=== PATIENT | male | born 1955 | race Caucasian/White ===

== ENCOUNTER → 2018-04-03 12:24 | Outpatient (CLI) | payer OTHER, MEDICAID, SELFPAY ==
[2018-04-03 15:29] LABS: Amylase 69 U/L (30-110); Lipase 59 U/L (23-300)
[2018-04-03 15:40] LABS: Free T4, Direct Thyroxine 1.66 ng/dL (0.78-2.19)
[2018-04-03 15:54] LABS: Thyroid Stimulating Hormone 1.48 uIU/mL (0.47-4.68)
== END ==
PROVIDERS: PCP Physician Assistant; Visit Provider Physician Assistant
DX: Z80.0 Family history of malignant neoplasm of digestive organs (principal); R10.9 Unspecified abdominal pain; E03.9 Hypothyroidism, unspecified
CPT/HCPCS: 36415; 82150; 83690; 84439; 84443

== ENCOUNTER → 2018-09-01 12:20 | Outpatient (CLI) | payer OTHER, MEDICAID, SELFPAY ==
[2018-09-01 13:00] LABS: Add Manual Diff / Slide Review NO; Basophils Percent Auto 1.2 % (0-2); Eosinophils Percent Auto 2.3 % (2-4); Hematocrit 48.7 % (41-53); Hemoglobin 16.9 g/dL (13.5-17.5); Lymphocytes Percent Auto 33.2 % (25-40); Mean Corpuscular HGB Conc 34.6 % (30-36); Mean Corpuscular Volume 95.4 fL (80-100); Monocytes Percent Auto 13.4 % (3-14); Neutrophils Absolute Auto 3300 /uL (1500-7000); Neutrophils Percent Auto 49.9 % (50-75); Platelet Count 209 X10^3/uL (150-400); Red Blood Cell Count 5.11 X10^6/uL (4.5-5.9); Red Cell Distribution Width 12.3 % (11.6-14.8); White Blood Cell Count 6.6 X10^3/uL (4.5-11.0)
[2018-09-01 13:07] LABS: Alanine Aminotransferase 44 IU/L (21-72); Albumin 4.5 g/dL (3.5-5.0); Albumin Globulin Ratio 1.3 (1.0-2.8); Alkaline Phosphatase 63 U/L (38-126); Aspartate Aminotransferase 46 IU/L (17-59); Blood Urea Nitrogen 7 mg/dL (9-20); Calcium 9.2 mg/dL (8.4-10.2); Carbon Dioxide 29 mmol/L (22-32); Chloride 96 mmol/L (98-107); Cholesterol 143 mg/dL (140-199); Estimated Glomerular Filt Rate > 60.0 mL/min (>60); Globulin 3.6 g/dL (1.7-4.1); Glucose 93 mg/dL (80-110); HDL Cholesterol 51 mg/dL (40-60); HEMOLYSIS < 15 (0-50); LDL Cholesterol Calculated 68 mg/dL (<100); Sodium 136 mmol/L (137-145); Total Protein 8.1 g/dL (6.3-8.2); Triglycerides 122 mg/dL (35-150)
[2018-09-04 23:35] LABS: Cancer (Carbohydrate) Ag 19-9 < 3 U/mL (< 34)
== END ==
PROVIDERS: PCP Physician Assistant; Visit Provider Physician Assistant
DX: E03.9 Hypothyroidism, unspecified (principal); F17.200 Nicotine dependence, unspecified, uncomplicated; R14.0 Abdominal distension (gaseous); Z13.220 Encounter for screening for lipoid disorders; Z13.6 Encounter for screening for cardiovascular disorders; Z80.0 Family history of malignant neoplasm of digestive organs
CPT/HCPCS: 36415; 80053; 80061; 84443; 85025; 86301

== ENCOUNTER 2018-11-14 11:22 | Day surgery (SDC) | payer OTHER, MEDICAID, SELFPAY ==
[2018-11-14] VITALS (8 sets, daily range): BP systolic 153–185; BP diastolic 84–100; PULSE 62–72; RESP 10–24; TEMP 36.3–36.4; O2SAT 93–98; BMI 27.1
--- NOTE | 2018-11-14 | PATH_ITS ---
[facility] Accession Number: [id number] . 01 Material submitted: . PART A: DUODENUM BIOPSY PART B: ANTRUM BIOPSY PART C: GE JUNCTION BIOPSY . 01 Clinical history: . EGD . 02 Diagnosis: A. Duodenum, Biopsy: Duodenal mucosa with no diagnostic abnormality. Negative for active inflammation, features of sprue, dysplasia, and malignancy. . B. Stomach, Antrum, Biopsy: Antral mucosa with no diagnostic abnormality. No evidence of Helicobacter on H/E stain. Negative for intestinal metaplasia. Negative for dysplasia and malignancy. . C. Gastroesophageal Junction, Biopsy: Superficial fragments of columnar epithelium with no diagnostic abnormality. Negative for intestinal metaplasia. Negative for dysplasia and malignancy. [facility]/11/15/2018 . 02 Electronically signed: . Kusum Weaver MD, Pathologist NPI- [id number] . 01 Gross description: . Received three formalin-filled containers each labeled with the patient's name. . A. In a container labeled duodenum, the specimen consists of a 0.3 cm portion of tissue. Entirely submitted in cassette A. B. In a container labeled antrum, the specimen consists of a 0.2 cm portion of tissue. Entirely submitted in cassette B. C. In a container labeled GE junction are two extremely tiny less than 0.1 cm portions of tissue. Entirely submitted in cassette C. ([facility] [place] [facility]:[id number]) /[facility] . 02 Pathologist provided ICD-10: R10.9 . 02 CPT . 714036, 537400, 884309 Performed at: 01 [facility] [address] [place] [address], [place], [place] [id number] MD Anmol Alejo MD Phone: [phone] Performed at: 02 [facility] [place] [address] [place] [id number] MD Kusum Weaver MD Phone: [phone]
[2018-11-14] MEDS: SODIUM CHLORIDE 0.9% 1,000 ML 200 ML IV (12:45)
--- NOTE | 2018-11-14 13:24 | PM.PREOP ---
Pre-operative Note Interval Note History & Physical reviewed/Exam performed by Physician: Yes Changes to H&P: No ASA Class (for procedural sedation): II
[2018-11-14] MEDS: LIDOCAINE 4% SOLN 50 ML 20 ML TOP (13:31)
[2018-11-14] MEDS: TETRACAINE/BENZOCAINE/BUTAMBEN (CETACAINE) BOTTLE 1 SPRAY TOP (13:32)
[2018-11-14] MEDS: fentaNYL 250 MCG/5 ML INJ IV (13:32)
[2018-11-14] MEDS: MIDAZOLAM 5 MG/5 ML VIAL IV (13:33)
--- NOTE | 2018-11-14 13:41 | PM.OP.1 ---
Operative Date/Time/Diagnoses Date of procedure: 11/14/18 Time of procedure: 13:41 Pre-op diagnosis: Esophageal thickening Post-op diagnosis: same Procedure & Clinicians Procedure: Esophagogastroduodenoscopy with biopsies Same procedure as scheduled: Yes Indications: abnormal CT with esophageal thickening Surgeon: Luz Duarte Click Yes if Unassisted: No Anesthesia Type: Sedation ( Versed 5 mg; fentanyl 150 mcg) Operative Notes Findings: 1. normal-appearing duodenum 2. antral gastritis 3. active bile reflux through the pylorus is noted 4. severe distal esophagitis with ulceration of the anterior esophageal wall. 5. Tissue on the posterior esophageal wall consistent with Macdonald's changes Closure Type: not applicable Specimen(s): other ( 1. Duodenum, 2. Antrum, 3. GE junction all cold forceps mucosal biopsies) Estimated Blood Loss (mL): 2 Procedure in detail: After obtaining informed consent, the patient was brought to the GI suite and placed in the left lateral decubitus position on the examination table. After placement of appropriate monitors, the patient was given incremental doses of Versed and Fentanyl until an appropriate level of sedation was achieved. A time out was held per SCOAP protocol. A bite block was gently placed between the patient's teeth. The endoscope was lubricated and then passed into the patient's posterior oropharynx. The esophagus was cannulated under direct vision and the scope was passed to the second portion of the duodenum without difficulty. The scope was then withdrawn with careful examination of all areas of the upper GI tract and mucosa. In the stomach, the instrument was retroflexed and the GE junction examined. The scope was straightened and the procedure continued with examination of the remainder of the upper GI tract. Findings are noted above. Air was aspirated from the stomach and the endoscope gently removed from the esophagus. The patient was allowed to awaken from sedation without difficulty and taken to the post-anesthesia care unit in good condition. total sedation time was 10 min Complications: none Condition: stable Disposition: PACU Plan for aftercare: 1. Discharge to home 2. start Protonix 40 mg b.i.d. and sucralfate 1000 mg b.i.d. 3. We will contact you with pathology results and additional recommendations
== END 2018-11-14 15:00 ==
LOC: ENDO 11:25
PROVIDERS: PCP Physician Assistant; Visit Provider Surgery
PROC: 0DJ08ZZ Inspection of Upper Intestinal Tract, Via Natural or Artificial Opening Endoscopic (ICD-10-PCS; CPT 43235; principal; 2018-11-14 12:30)
DX: K29.60 Other gastritis without bleeding (principal); K22.10 Ulcer of esophagus without bleeding; E03.9 Hypothyroidism, unspecified; Z87.891 Personal history of nicotine dependence
CPT/HCPCS: 43239; 99152; J2250; J3010

== ENCOUNTER → 2019-07-17 12:06 | Outpatient (CLI) | payer MEDICARE, OTHER, MEDICAID, SELFPAY ==
--- NOTE | 2019-07-17 12:12 | DI.RAD.S_ITS ---
PROCEDURE: XR CHEST 2V INDICATIONS: dyspnea TECHNIQUE: 2 views of the chest were acquired. COMPARISON: [facility], , CHEST 2 VIEW, 07/29/2017, 7:54. FINDINGS: Surgical changes and devices: None. Lungs and pleura: Lungs are abnormal with interstitial prominence and slight bilateral subpulmonic pleural effusions blunting each costophrenic sulcus laterally. Additionally the diaphragms are flattened, COPD is suspected. No pleural effusions or pneumothorax. Mediastinum: Mediastinal contours are normal. Heart size is at the upper limits of normal. Bones and chest wall: No suspicious bony abnormalities. Soft tissues appear unremarkable. IMPRESSION: COPD, slight pleural effusions present in each lateral costophrenic sulcus. Heart size at the upper limits of normal considering large lung volumes. Dictated by: Chepe Ornelas M.D. on 07/17/2019 at 13:11 Approved by: Chepe Ornelas M.D. on 07/17/2019 at 13:12
== END ==
PROVIDERS: Family Provider Physician Assistant; PCP Physician Assistant; Visit Provider Internal Medicine
DX: R06.00 Dyspnea, unspecified (principal); J44.9 Chronic obstructive pulmonary disease, unspecified; J90 Pleural effusion, not elsewhere classified
CPT/HCPCS: 71046

== ENCOUNTER → 2019-07-31 11:33 | Outpatient (CLI) | payer MEDICARE, SELFPAY ==
[2019-07-31 12:00] LABS: Add Manual Diff / Slide Review NO; Basophils Absolute Auto 100 /uL (0-100); Basophils Percent Auto 1.2 % (0-2); Eosinophils Absolute Auto 100 /uL (0-450); Eosinophils Percent Auto 2.1 % (2-4); Hematocrit 43.5 % (41-53); Hemoglobin 14.9 g/dL (13.5-17.5); Lymphocytes Absolute Auto 1800 /uL (1100-4500); Lymphocytes Percent Auto 30.3 % (25-40); Mean Corpuscular HGB Conc 34.3 % (30-36); Mean Corpuscular Hemoglobin 33.1 PG (26-34); Mean Corpuscular Volume 96.5 fL (80-100); Monocytes Absolute Auto 600 /uL (0-900); Monocytes Percent Auto 10.2 % (3-14); Neutrophils Absolute Auto 3300 /uL (1500-7000); Neutrophils Percent Auto 56.2 % (50-75); Platelet Count 163 X10^3/uL (150-400); Red Blood Cell Count 4.51 X10^6/uL (4.5-5.9); Red Cell Distribution Width 13.5 % (11.6-14.8); White Blood Cell Count 5.8 X10^3/uL (4.5-11.0)
[2019-07-31 13:18] LABS: Alanine Aminotransferase 20 IU/L (<50); Albumin 4.2 g/dL (3.5-5.0); Albumin Globulin Ratio 1.4 (1.0-2.8); Alkaline Phosphatase 78 U/L (38-126); Aspartate Aminotransferase 47 IU/L (17-59); BUN Creatinine Ratio 8.3 (6-22); Bilirubin Total 1.5 mg/dL (0.2-1.3); Blood Urea Nitrogen 5 mg/dL (9-20); Carbon Dioxide 24 mmol/L (22-32); Chloride 99 mmol/L (98-107); Estimated Glomerular Filt Rate > 60.0 mL/min (>60); Globulin 3.1 g/dL (1.7-4.1); Glucose 84 mg/dL (80-110); HEMOLYSIS < 15 (0-50); Potassium 4.4 mmol/L (3.4-5.1); Sodium 134 mmol/L (137-145); Total Protein 7.3 g/dL (6.3-8.2)
[2019-07-31 13:46] LABS: Thyroid Stimulating Hormone 2.24 uIU/mL (0.47-4.68)
[2019-07-31 17:22] LABS: Prostate Specific Antigen 0.489 ng/mL (0.10-4.00)
== END ==
PROVIDERS: PCP Physician Assistant; Visit Provider Physician Assistant
DX: R63.4 Abnormal weight loss (principal)
CPT/HCPCS: 36415; 80053; 84153; 84443; 85025; G0103

== ENCOUNTER → 2019-08-01 10:51 | Outpatient (CLI) | payer MEDICARE, MEDICAID, SELFPAY ==
--- NOTE | 2019-08-01 10:54 | DI.CT.S_ITS ---
PROCEDURE: CT CHEST WO CON INDICATIONS: Dyspnea on exertion; Smoker; abnormal weight loss TECHNIQUE: Noncontrast 5 mm thick sections acquired from the pulmonary apices to the posterior costophrenic angles. 1 mm lung window, 5 mm thick coronal and sagittal and 7 mm axial MIP reformats were then acquired. For radiation dose reduction, the following was used: automated exposure control, adjustment of mA and/or kV according to patient size. COMPARISON: None. FINDINGS: Image quality: Excellent. Lungs and pleura: There are are small bilateral low density pleural effusions, slightly greater on the right than on the left. 5 and 6 mm nodular radiopacities are present within the posterior aspect of the right lower lobe (series 3, images 185 and 175). Mild interlobular septal thickening is present in the bilateral lung bases. Atelectasis is also present at the dependent lung bases. Mediastinum: Heart size is normal. No pericardial effusion. No mediastinal adenopathy by size criteria. Thoracic aorta and central pulmonary arteries are normal in size. Trace atheromatous calcifications are present within the thoracic aortic arch. Esophagus is normal in caliber. No hiatal hernia. Bones and chest wall: No suspicious bony lesions. No vertebral body compression fractures. No axillary or supraclavicular adenopathy by size criteria. Thyroid gland is unremarkable. Abdomen: Innumerable punctate gallstones are layered within the gallbladder fundus as well as within the cystic duct. Visualized upper abdominal solid organs and bowel loops appear normal in the absence of contrast. IMPRESSION: 1. Bilateral low density pleural effusions. 2. 5 and 6 mm right lower lobe pulmonary nodules. Please see followup guidelines below. A high risk patient, 6 month followup recommended. 3. Cholelithiasis and punctate stones within the cystic duct. This is only partially characterized on this limited view of the abdomen. Fleischner Society criteria for SOLID lung nodule followup. Nodule size (mm)Low-risk patientHigh-risk patient?4No follow-up neededFollow-up at 12 mo; if no change, no further follow-up>[id number] CT at 12 mo; if no change, no further follow-up needed.Initial follow-up CT at 6-12 mo, then 18-24 mo if no change. >6-8Initial follow-up CT at 6-12 mo, then 18-24 mo if no change. Initial follow-up CT at 3-6 mo, then 9-12 mo and 24 mo if no change. >8Follow-up CT at 3, 9, 24 mo. Or PET and/or biopsy.Same as for low-risk pts. Fleischner Society criteria for SUB-SOLID lung nodule followup. Solitary pure ground-glass nodules5 mm or lessNo followup needed. >5 mm3 mo follow-up CT to confirm persistence. Then annual CT for 3 years. Part-solid nodules3 mo follow-up CT to confirm persistence. If persistent with solid component <5 mm, annual CT for at least 3 years. If solid component is 5 mm or more, biopsy or surgical resection. Consider PET-CT for lesions > 10 mm. Multiple sub-solid nodulesPure ground glass nodules [address] at 2 and 4 years. Pure ground glass nodules >5 mm without dominant lesion. [address] to confirm persistence, then annual followup CT for at least 3 years. Dominant nodule(s) with part-solid or solid component. [address] to confirm persistence. If persistent, consider biopsy or surgical resection, prabha if lesions have >5 mm solid component. Dictated by: Bee Valladares M.D. on 08/01/2019 at 15:22 Approved by: Bee Valladares M.D. on 08/01/2019 at 15:27
== END ==
PROVIDERS: PCP Physician Assistant; Visit Provider Physician Assistant
DX: R05 Cough (principal); R06.09 Other forms of dyspnea; R91.8 Other nonspecific abnormal finding of lung field; J90 Pleural effusion, not elsewhere classified; K80.20 Calculus of gallbladder without cholecystitis without obstruction; R63.4 Abnormal weight loss; F17.200 Nicotine dependence, unspecified, uncomplicated
CPT/HCPCS: 71250

== ENCOUNTER 2020-02-17 16:06 | Inpatient (IN) | payer MEDICARE, MEDICAID, SELFPAY ==
[2020-02-17] VITALS (12 sets, daily range): BP systolic 113–167; BP diastolic 90–113; PULSE 65–132; RESP 18–32; TEMP 36.1–36.9; O2SAT 96–98; BMI 22.9
--- NOTE | 2020-02-17 | DI.CT.S_ITS ---
PROCEDURE: CT ABDOMEN W CON INDICATIONS: elevated LFTs, nausea vomiting TECHNIQUE: After the administration of intravenous contrast, 5 mm thick sections acquired from the diaphragm to the iliac crests. 5 mm coronal and sagittal reformats were performed. For radiation dose reduction, the following was used: automated exposure control, adjustment of mA and/or kV according to patient size. COMPARISON: [facility], CT, CT CHEST WO [facility], 08/01/2019, 10:58. FINDINGS: Image quality: Excellent. Lung bases: Trace bilateral pleural effusions. Lung bases are clear. Heart size is normal. Small hiatal hernia. Solid organs: Liver demonstrates a nodular contour. Liver is normal in size and enhancement. Gallbladder contains gallstones. Biliary system is non dilated. Pancreas enhances normally. Spleen is normal in size and enhancement. No adrenal nodules. Kidneys demonstrate normal size and enhancement, without hydronephrosis. Peritoneum and bowel: A few colonic diverticula are seen in the area of the hepatic flexure. No CT findings to suggest acute diverticulitis. Bowel loops demonstrate normal wall thickness and caliber. No free fluid or air. Nodes and vessels: No retroperitoneal or mesenteric adenopathy by size criteria. Aorta and inferior vena cava are normal in size. Miscellaneous: No ventral hernias. IMPRESSION: 1. Liver demonstrates subtle nodular contour suggesting cirrhosis. Recommend clinical correlation. 2. Cholelithiasis. 3. Trace pleural effusions bilaterally. 4. Diverticulosis without diverticulitis. Dictated by: Frances Ha M.D. on 02/17/2020 at 21:03 Approved by: Frances Ha M.D. on 02/17/2020 at 21:08
--- NOTE | 2020-02-17 16:22 | DI.RAD.S_ITS ---
PROCEDURE: XR CHEST 1V INDICATIONS: chest pain TECHNIQUE: One view of the chest was acquired. COMPARISON: [facility], CT, CT CHEST WO CON, 08/01/2019, 10:58. [facility], CR, XR CHEST 2V, 07/17/2019, 12:11. [facility], RG, XR CXR 2V, 03/15/2005, 12:01. FINDINGS: Surgical changes and devices: None. Lungs and pleura: Lungs are clear. No pleural effusions or pneumothorax. Mediastinum: Mediastinal contours appear normal. Heart size is normal. Bones and chest wall: No suspicious bony lesions. Overlying soft tissues appear unremarkable. IMPRESSION: No acute cardiopulmonary disease. Dictated by: Frances Ha M.D. on 02/17/2020 at 17:14 Approved by: Frances Ha M.D. on 02/17/2020 at 17:15
[2020-02-17 16:32] LABS: Add Manual Diff / Slide Review NO; Basophils Absolute Auto 100 /uL (0-100); Basophils Percent Auto 2.8 % (0-2); Eosinophils Absolute Auto 0 /uL (0-450); Eosinophils Percent Auto 1.3 % (2-4); Hematocrit 43.8 % (41-53); Hemoglobin 15.4 g/dL (13.5-17.5); Lymphocytes Absolute Auto 1100 /uL (1100-4500); Mean Corpuscular HGB Conc 35.2 % (30-36); Mean Corpuscular Hemoglobin 35.7 PG (26-34); Mean Corpuscular Volume 101.4 fL (80-100); Monocytes Absolute Auto 500 /uL (0-900); Neutrophils Absolute Auto 1600 /uL (1500-7000); Neutrophils Percent Auto 48.9 % (50-75); Platelet Count 82 X10^3/uL (150-400); Red Blood Cell Count 4.32 X10^6/uL (4.5-5.9); Red Cell Distribution Width 13.7 % (11.6-14.8); White Blood Cell Count 3.3 X10^3/uL (4.5-11.0)
[2020-02-17 16:37] LABS: Prothrombin Time 11.7 SECONDS (10.1-12.7)
[2020-02-17 16:40] LABS: PTT Partial Thromboplastin Tim 31 SECONDS (26.4-36.2)
[2020-02-17 16:41] LABS: Alanine Aminotransferase 58 IU/L (<50); Albumin 3.8 g/dL (3.5-5.0); Albumin Globulin Ratio 1.2 (1.0-2.8); Alkaline Phosphatase 99 U/L (38-126); Aspartate Aminotransferase 185 IU/L (17-59); BUN Creatinine Ratio 7.8 (6-22); Bilirubin Total 2.6 mg/dL (0.2-1.3); Blood Urea Nitrogen 5 mg/dL (9-20); Calcium 9.1 mg/dL (8.4-10.2); Carbon Dioxide 26 mmol/L (22-32); Chloride 96 mmol/L (98-107); Creatine Kinase 59 U/L (55-170); Estimated Glomerular Filt Rate > 60.0 mL/min (>60); Globulin 3.3 g/dL (1.7-4.1); Glucose 109 mg/dL (80-110); HEMOLYSIS < 15 (0-50); Lipase 165 U/L (23-300); Potassium 4.3 mmol/L (3.4-5.1); Sodium 130 mmol/L (137-145); Total Protein 7.1 g/dL (6.3-8.2)
[2020-02-17 16:53] LABS: Troponin I 0.013 ng/mL (0.01-0.034)
[2020-02-17] MEDS: SODIUM CHLORIDE 0.9% 1,000 ML 150 ML IV (17:10)
--- NOTE | 2020-02-17 17:20 | DI.US.S_ITS ---
PROCEDURE: US ABDOMEN LIMITED INDICATIONS: INCREASED LFTS; N/V TECHNIQUE: Real-time focused scanning was performed of the abdomen, with image documentation. COMPARISON: [facility], US, ABDOMEN COMPLETE, 07/29/2017, 8:38. [facility], CT, CT CHEST WO CON, 08/01/2019, 10:58. FINDINGS: There are gallstones. A 5 mm non-mobile stone seen in the gallbladder neck. No gallbladder wall thickening or pericholecystic fluid. The sonographic Rosas's sign was positive. Liver demonstrates increased echotexture IMPRESSION: 1. Cholelithiasis. There is a 5 mm non-mobile stone in the gallbladder neck. The patient has positive sonographic Rosas sign. No bladder wall thickening or pericholecystic fluid collection. Recommend clinical correlation for early acute cholecystitis. 2. Diffusely increased hepatic echotexture. This finding is most likely secondary to hepatic fatty infiltration although other hepatocellular disease may have a similar appearance. Recommend clinical correlation. Dictated by: Frances Ha M.D. on 02/17/2020 at 18:24 Approved by: Frances Ha M.D. on 02/17/2020 at 18:27
[2020-02-17] MEDS: MAGNESIUM SULFATE 2 GM, FOLIC ACID 1 MG, THIAMINE 100 MG, MULTIVITAMIN 10 ML in SODIUM ... IV (17:35)
--- NOTE | 2020-02-17 17:36 | ED_ITS ---
HPI - Weakness <RYAN Wilkinson - Last Filed: 02/17/20 21:32> General Chief complaint: Weakness Stated complaint: weakness,dizziness Time Seen by Provider: 02/17/20 16:39 Source: patient Mode of arrival: Family Vehicle Limitations: no limitations History of Present Illness HPI Narrative: This is a 64-year-old male, smoker, who has history of hypothyroidism and a long history of ETOH use presents to ED with generalized weakness for last 3 weeks and dizziness. Patient reports he needs help getting around and is not able to take care of himself. He lives alone at [facility] and has meals on wheels delivered to him once a day last 6 weeks. However with persistent nausea and vomiting patient has difficulty keeping foods down and digestion difficulty. Reports vomits about 2 times a week. Patient denies fever, chills, significant abdominal pain, urinary symptoms such as urgency, frequency, dysuria. He reports occasional diarrhea. He denies blood in his emesis or stool. Patient reports he feels malnourished. Patient reports he lost about 25 lb over 3 months. He usually drinks 6 beers with some whiskey. Patient states a fifth will last him for a week. He states has been drinking since age 17. He denies other recreational use. Reports last drink was 2 days ago since he could make it to store to purchase alcohol drinks due to generalized weakness. PCP is Dr. Wyman. The patient denies taking anticoagulants or aspirin. Reports takes only thyroid medication. Related Data Previous Rx's Medication Instructions Recorded aspirin 81 mg tablet,delayed 81 mg PO DAILY #90 tab 07/31/19 release levothyroxine 75 mcg tablet 75 mcg PO QDAY #90 tab 12/12/19 Allergies Allergy/AdvReac Type Severity Reaction Status Date / Time ciprofloxacin [From CIPRO] AdvReac Severe SWELLING Verified 02/17/20 16:25 IN HANDS, ARMS, LEGS AND FEET pantoprazole AdvReac Intermediate n/v, Verified 02/17/20 16:25 omeprazole okay Review of Systems <RYAN Wilkinson - Last Filed: 02/17/20 21:32> Review of Systems Narrative: General: Denies fever, chills, (+) fatigue, (+) malaise, sweats. HEENT: Denies sinus pain, ear pain, sore throat, difficulty swallowing, dizziness. Respiratory: Denies dyspnea, cough, wheezing, hemoptysis, sputum. Cardiovascular: Denies chest pain, palpitations, orthopnea, edema. Gastrointestinal: See HPI : Denies dysuria, frequency, incontinence, hematuria, urinary retention. Musculoskeletal: Denies weakness, joint pain or bony pain. Skin: Denies rash, skin lesions, or other. Neurologic: Denies (+) generalized weakness, headache, numbness, change in speech, confusion, seizures, incoordination. Psychiatric: No concerning psychosocial issues. 12-point review of systems is negative except for those stated above. Patient History <RYAN Wilkinson - Last Filed: 02/17/20 21:32> Medical History (Updated 02/17/20 @ 23:00 by RYAN Johnson) Alcohol dependence (Chronic) Cataracts, bilateral (Resolved 2007) Chronic cough (Chronic 1999) COPD (chronic obstructive pulmonary disease) (Inactive) Dislocated elbow (Resolved 2000) Dislocated shoulder (Resolved 2001) Eczema (Chronic 2016) Elevated liver function tests (Inactive) Fractures (Resolved ~1963) GERD (gastroesophageal reflux disease) (Chronic) Hypothyroidism (Chronic) Impaired vision (Acute) Pulmonary nodule (Inactive ~07/2019) Surgical History (Updated 02/17/20 @ 17:43 by RYAN Wilkinson) History of cataract removal with insertion of prosthetic lens History of nasal surgery (Resolved 1963) History of repair of hiatal hernia (Acute) Hx of hernia repair (Resolved 1995) Family History Father History of arteriosclerotic cardiovascular disease History of emphysema Mother Cancer Grandfather No problems noted. Grandmother Stroke Grandfather No problems noted. Grandmother No problems noted. Social History household members: none Smoking Status: Current every day smoker Tobacco: How many years used: 22 quit status: not considering quitting second hand exposure: No alcohol intake: current substance use type: does not use Smoking Status: Current every day smoker alcohol intake frequency: 3 or more drinks per day (Six beers plus whiskey) Alcohol type: beer Substance Use Type: does not use Exam <RYAN Wilkinson - Last Filed: 02/17/20 21:32> Narrative Exam Narrative: GEN: Alert, oriented x 3, well appearing and nourished, and in no acute distress. Head: Normal cephalic, atraumatic. No scalp or temporal tenderness, palpable mass or rash. EYES: Pupils are equal, round, and reactive to light and accommodation. Extraocular muscles are intact bilaterally. There is no subconjunctival hemorrhage, exudate and sclera non-icteric. ENT: Hearing difficulty. Nose without bleeding, purulent discharge, septal hematoma or deviation. Turbinate without erythema or swelling. Facial sinuses nontender to palpate. Mucous membrane moist, no mucosal lesion. Small white patches on tongue. Throat without erythema, tonsillar hypertrophy or exudate. Uvula in midline, airway patent. Neck: Trachea in midline. No JVD, non-tender without lymphadenopathy. No masses or thyroid megaly. Supple, non-tender and no meningeal signs. CARDIAC: Irregular rhythm without murmurs, gallops, or rubs. No chest wall tenderness. No peripheral edema, cyanosis or pallor. Capillary refill is less than 2 seconds. No carotid bruits. RESPIRATORY: Lungs are cleat to auscultate bilaterally. No cough, wheezes, rales, or rhonchi. No stridor, respiratory distress, increase work of breathing, or accessary muscle used. ABD: Abdomen soft, nontender and non-distended. No guarding or rebound tenderness to palpate. Bowel sounds are normal in all 4 quadrants. There is no palpable masses or organomegaly. EXT: Full painless ROM of all extremities with no loss of sensation, strength, effusion or edema. SKIN: Warm, dry, normal color for patient. No erythema, lesions or rash. Spide r veins in the face. BACK: Nontender without deformity or crepitance. No flank tenderness. NEUROLOGICAL: Alert and oriented to place, time and person. No facial droops, dysphasia. CN II-XII intact. Strength and sensation symmetric and intact throughout. Cerebellar testing normal. PSYCHIATRIC: Good judgement and reason, without hallucinations, abnormal affect or abnormal behaviors during the examination. Patient is not suicidal. Initial Vital Signs Initial Vital Signs: Vital Signs Temperature 97.0 F L 02/17/20 16:22 Pulse Rate 65 02/17/20 16:22 Respiratory Rate 32 H 02/17/20 16:22 Blood Pressure 167/113 H 02/17/20 16:22 Pulse Oximetry 98 02/17/20 16:22 <Jose Escamilla MD - Last Filed: 02/18/20 08:08> Initial Vital Signs Initial Vital Signs: Vital Signs Temperature 97.0 F L 02/17/20 16:22 Pulse Rate 65 02/17/20 16:22 Respiratory Rate 32 H 02/17/20 16:22 Blood Pressure 167/113 H 02/17/20 16:22 Pulse Oximetry 98 02/17/20 16:22 Scores <RYAN Wilkinson - Last Filed: 02/17/20 21:32> CHADS-VASc Congestive heart failure: no Hypertension: no Age 75 years or older: no Diabetes mellitus: no Stroke, TIA, or TE: no Vascular disease: no Age 65 to 74 years: yes Sex category (female): Male CHADS-VASc Score: 1 Citation:: CHADS2 score for afib stroke risk 0. CIWA score 2 GCS [place] coma scale eye opening: Spontaneous [place] coma scale verbal response: Orientated [place] coma scale motor response: Obey commands [place] coma scale total score: 15 NIH Stroke Scale Level of Conciousness: Alert, keenly responsive Ask month/age: Answers both questions correctly. Open/close eyes, close hand: Performs both tasks correctly Best gaze horizontal: Normal Visual meadows: No visual loss Facial palsy: Normal symetrical movement Left arm drift: No drift for full 10 sec Right arm drift: No drift for full 10 sec Left leg drift: No drift for full 10 sec Right leg drift: No drift for full 10 sec Limb ataxia: Absent Sensory on face/arms/legs: Normal, no sensory loss Best language: No aphasia, normal Dysarthria: Normal Course <RYAN Wilkinson - Last Filed: 02/17/20 21:32> Orders Ordered: ED Orders 02/18/20 04:40 Basic Metabolic Panel Routine Complete Blood Count AUTO DIFF Routine Magnesium Routine Acetaminophen (Tylenol) 650 mg PO Q6HR PRN PRN Reason: Fever/Mild Pain (1-3) Aspirin (Aspirin Ec) 81 mg PO DAILY [facility] Last Admin: 02/18/20 07:41 Dose: 81 mg Documented by: TBLANTO Atorvastatin Calcium (Lipitor) 20 mg PO BEDTIME [facility] Bisacodyl (Dulcolax) 10 mg PO DAILY PRN PRN Reason: Constipation Chlordiazepoxide HCl (Librium) 25 mg PO Q6HR [facility] Last Admin: 02/18/20 07:41 Dose: 25 mg Documented by: RONALDO Enoxaparin Sodium (Lovenox) 70 mg SUBCUT BID [facility] Last Admin: 02/18/20 07:34 Dose: 70 mg Documented by: Admin: 02/17/20 22:28 Dose: 70 mg Documented by: NICHO Folic Acid (Folic Acid) 1 mg PO DAILY [facility] Last Admin: 02/18/20 07:41 Dose: 1 mg Documented by: RONALDO Furosemide (Lasix) 40 mg IV Q12HR [facility] Last Admin: 02/18/20 07:35 Dose: 40 mg Documented by: RONALDO Famotidine (Pepcid) 20 mg in 50 mls @ 200 mls/hr IV Q12HR [facility] Last Admin: 02/18/20 01:18 Dose: Not Given Documented by: Infusion: 02/17/20 23:23 Dose: 0 mls/hr Documented by: Admin: 02/17/20 22:22 Dose: 200 mls/hr Documented by: NICHO Sodium Chloride (Normal Saline 0.9%) 1,000 mls @ 0 mls/hr IV CONT [facility] Last Infusion: 02/18/20 05:35 Dose: 21 mls/hr Documented by: Admin: 02/18/20 00:35 Dose: 100 mls/hr Documented by: NICHO DILTIAZEM (Diltiazem 125 Mg/125 Ml-D5w) 125 mg in 125 mls @ 2.5 mls/hr IV TITRATE [facility]; Protocol Last Titration: 02/18/20 07:23 Dose: 5 mg/hr, 5 mls/hr Documented by: Admin: 02/18/20 05:10 Dose: 10 mg/hr, 10 mls/hr Documented by: RONALDO Thiamine HCl 500 mg/ Sodium (Chloride) 55 mls @ 220 mls/hr IV Q8H [facility] Stop: 02/21/20 07:59 Levothyroxine Sodium (Synthroid) 75 mcg PO QACBREAK [facility] Last Admin: 06/22/20 07:42 Dose: 75 mcg Documented by: RONALDO Lorazepam (Ativan) 0 mg IV CIWAPRN PRN; Protocol PRN Reason: Alcohol Withdrawal Last Admin: 02/18/20 04:45 Dose: 4 mg Documented by: Admin: 02/18/20 03:15 Dose: 4 mg Documented by: Admin: 02/18/20 02:41 Dose: 2 mg Documented by: Admin: 02/18/20 02:01 Dose: 2 mg Documented by: Admin: 02/18/20 01:33 Dose: 2 mg Documented by: Admin: 02/18/20 00:45 Dose: 2 mg Documented by: Admin: 02/17/20 23:28 Dose: 2 mg Documented by: Admin: 02/17/20 21:09 Dose: 2 mg Documented by: NICHO Lorazepam (Ativan) 0 mg PO CIWAPRN PRN; Protocol PRN Reason: Alcohol Withdrawal Metoprolol Tartrate (Lopressor) 25 mg PO BID [facility] Last Admin: 02/18/20 07:41 Dose: 25 mg Documented by: Admin: 02/17/20 22:21 Dose: 25 mg Documented by: NICHO Multivitamins (Tab-A-Keren) 1 tab PO DAILY [facility] Last Admin: 02/18/20 07:41 Dose: 1 tab Documented by: RONALDO Naloxone HCl (Narcan) 0.2 mg IV Q2MIN PRN PRN Reason: Opiate Reversal Nicotine (Nicoderm) 21 mg TOP DAILY [facility] Last Admin: 02/18/20 07:36 Dose: 21 mg Documented by: RONALDO Ondansetron HCl (Zofran) 4 mg IV Q6HR PRN PRN Reason: Nausea And Vomiting Discontinued Medications Clopidogrel Bisulfate (Plavix) 75 mg PO DAILY [facility] Last Admin: 02/18/20 07:41 Dose: 75 mg Documented by: RONALDO Enoxaparin Sodium (Lovenox) 75 mg 1 mg/kg (75 mg) SUBCUT BID [facility] Last Admin: 02/17/20 23:44 Dose: Not Given Documented by: NICHO Furosemide (Lasix) 40 mg IV NOW ONE Stop: 02/17/20 18:27 Last Admin: 02/17/20 18:43 Dose: 40 mg Documented by: TIM Sodium Chloride (Normal Saline 0.9%) 1,000 mls @ 150 mls/hr IV CONT [facility] Last Infusion: 02/17/20 18:37 Dose: 0 mls/hr Documented by: Admin: 02/17/20 17:10 Dose: 150 mls/hr Documented by: TIM Magnesium Sulfate 2 gm/ Folic Acid 1 mg/ Thiamine HCl 100 mg / Multivitamins 10 ml/ Sodium Chloride 1,015.2 mls @ 125 mls/hr IV NOW ONE Stop: 02/18/20 01:26 Last Infusion: 02/18/20 03:47 Dose: 0 mls/hr Documented by: Infusion: 02/17/20 18:40 Dose: 125 mls/hr Documented by: Infusion: 02/17/20 18:40 Dose: 150 mls/hr Documented by: Admin: 02/17/20 17:35 Dose: 250 mls/hr Documented by: TIM Lorazepam (Ativan) 0.5 mg IV NOW ONE Stop: 02/17/20 19:50 Last Admin: 02/17/20 19:56 Dose: 0.5 mg Documented by: TIM Metoprolol Tartrate (Lopressor) 5 mg IV NOW ONE Stop: 02/18/20 03:12 Last Admin: 02/18/20 03:05 Dose: 5 mg Documented by: RONALDO Metoprolol Tartrate (Lopressor) 5 mg IV Q2HR PRN PRN Reason: Heart Rate- High Metoprolol Tartrate (Lopressor) 25 mg PO BID [facility] Thiamine HCl (Vitamin B-1) 100 mg PO DAILY [facility] Stop: 02/21/20 09:01 Last Admin: 02/18/20 07:42 Dose: 100 mg Documented by: RONALDO Consultations Consultation #1: Consulted Dr. Alcala with US and lab test findings. He kindly accepted patient's consultation for possible cholelithiasis/ETOH related liver disease. He recommended adding procalcitonin and hold antibiotic medications at this time. Time: 18:50 Vital Signs Vital signs: Vital Signs - 8 hr 02/17/20 16:22 02/17/20 16:45 02/17/20 17:30 Temperature 97.0 F L Pulse Rate 65 94 H 112 H Respiratory Rate 32 H 22 Blood Pressure 167/113 H Blood Pressure [Right Arm] 113/98 H 133/90 Pulse Oximetry 98 98 98 02/17/20 17:34 02/17/20 18:00 02/17/20 19:00 Temperature Pulse Rate 99 H 96 H 112 H Respiratory Rate 30 H 26 H Blood Pressure Blood Pressure [Right Arm] 133/90 133/90 Pulse Oximetry 98 98 <Jose Escamilla MD - Last Filed: 02/18/20 08:08> Orders Ordered: ED Orders 02/18/20 04:40 Basic Metabolic Panel Routine Complete Blood Count AUTO DIFF Routine Magnesium Routine Acetaminophen (Tylenol) 650 mg PO Q6HR PRN PRN Reason: Fever/Mild Pain (1-3) Aspirin (Aspirin Ec) 81 mg PO DAILY [facility] Last Admin: 02/18/20 07:41 Dose: 81 mg Documented by: RONALDO Atorvastatin Calcium (Lipitor) 20 mg PO BEDTIME [facility] Bisacodyl (Dulcolax) 10 mg PO DAILY PRN PRN Reason: Constipation Chlordiazepoxide HCl (Librium) 25 mg PO Q6HR [facility] Last Admin: 02/18/20 07:41 Dose: 25 mg Documented by: RONALDO Enoxaparin Sodium (Lovenox) 70 mg SUBCUT BID [facility] Last Admin: 02/18/20 07:34 Dose: 70 mg Documented by: Admin: 02/17/20 22:28 Dose: 70 mg Documented by: NICHO Folic Acid (Folic Acid) 1 mg PO DAILY [facility] Last Admin: 02/18/20 07:41 Dose: 1 mg Documented by: RONALDO Furosemide (Lasix) 40 mg IV Q12HR [facility] Last Admin: 02/18/20 07:35 Dose: 40 mg Documented by: RONALDO Famotidine (Pepcid) 20 mg in 50 mls @ 200 mls/hr IV Q12HR [facility] Last Admin: 02/18/20 01:18 Dose: Not Given Documented by: Infusion: 02/17/20 23:23 Dose: 0 mls/hr Documented by: Admin: 02/17/20 22:22 Dose: 200 mls/hr Documented by: NICHO Sodium Chloride (Normal Saline 0.9%) 1,000 mls @ 0 mls/hr IV CONT [facility] Last Infusion: 02/18/20 05:35 Dose: 21 mls/hr Documented by: Admin: 02/18/20 00:35 Dose: 100 mls/hr Documented by: NICHO DILTIAZEM (Diltiazem 125 Mg/125 Ml-D5w) 125 mg in 125 mls @ 2.5 mls/hr IV TITRATE [facility]; Protocol Last Titration: 02/18/20 07:23 Dose: 5 mg/hr, 5 mls/hr Documented by: Admin: 02/18/20 05:10 Dose: 10 mg/hr, 10 mls/hr Documented by: RONALDO Thiamine HCl 500 mg/ Sodium (Chloride) 55 mls @ 220 mls/hr IV Q8H [facility] Stop: 02/21/20 07:59 Levothyroxine Sodium (Synthroid) 75 mcg PO QACBREAK [facility] Last Admin: 02/18/20 07:42 Dose: 75 mcg Documented by: RONALDO Lorazepam (Ativan) 0 mg IV CIWAPRN PRN; Protocol PRN Reason: Alcohol Withdrawal Last Admin: 02/18/20 04:45 Dose: 4 mg Documented by: Admin: 02/18/20 03:15 Dose: 4 mg Documented by: Admin: 02/18/20 02:41 Dose: 2 mg Documented by: Admin: 02/18/20 02:01 Dose: 2 mg Documented by: Admin: 02/18/20 01:33 Dose: 2 mg Documented by: Admin: 02/18/20 00:45 Dose: 2 mg Documented by: Admin: 02/17/20 23:28 Dose: 2 mg Documented by: Admin: 02/17/20 21:09 Dose: 2 mg Documented by: NICHO Lorazepam (Ativan) 0 mg PO CIWAPRN PRN; Protocol PRN Reason: Alcohol Withdrawal Metoprolol Tartrate (Lopressor) 25 mg PO BID [facility] Last Admin: 02/18/20 07:41 Dose: 25 mg Documented by: Admin: 02/17/20 22:21 Dose: 25 mg Documented by: NICHO Multivitamins (Tab-A-Keren) 1 tab PO DAILY [facility] Last Admin: 02/18/20 07:41 Dose: 1 tab Documented by: RONALDO Naloxone HCl (Narcan) 0.2 mg IV Q2MIN PRN PRN Reason: Opiate Reversal Nicotine (Nicoderm) 21 mg TOP DAILY [facility] Last Admin: 02/18/20 07:36 Dose: 21 mg Documented by: RONALDO Ondansetron HCl (Zofran) 4 mg IV Q6HR PRN PRN Reason: Nausea And Vomiting Discontinued Medications Clopidogrel Bisulfate (Plavix) 75 mg PO DAILY [facility] Last Admin: 02/18/20 07:41 Dose: 75 mg Documented by: RONALDO Enoxaparin Sodium (Lovenox) 75 mg 1 mg/kg (75 mg) SUBCUT BID [facility] Last Admin: 02/17/20 23:44 Dose: Not Given Documented by: NICHO Furosemide (Lasix) 40 mg IV NOW ONE Stop: 02/17/20 18:27 Last Admin: 02/17/20 18:43 Dose: 40 mg Documented by: TIM Sodium Chloride (Normal Saline 0.9%) 1,000 mls @ 150 mls/hr IV CONT [facility] Last Infusion: 02/17/20 18:37 Dose: 0 mls/hr Documented by: Admin: 02/17/20 17:10 Dose: 150 mls/hr Documented by: TIM Magnesium Sulfate 2 gm/ Folic Acid 1 mg/ Thiamine HCl 100 mg / Multivitamins 10 ml/ Sodium Chloride 1,015.2 mls @ 125 mls/hr IV NOW ONE Stop: 02/18/20 01:26 Last Infusion: 02/18/20 03:47 Dose: 0 mls/hr Documented by: Infusion: 02/17/20 18:40 Dose: 125 mls/hr Documented by: Infusion: 02/17/20 18:40 Dose: 150 mls/hr Documented by: Admin: 02/17/20 17:35 Dose: 250 mls/hr Documented by: TIM Lorazepam (Ativan) 0.5 mg IV NOW ONE Stop: 02/17/20 19:50 Last Admin: 02/17/20 19:56 Dose: 0.5 mg Documented by: TIM Metoprolol Tartrate (Lopressor) 5 mg IV NOW ONE Stop: 02/18/20 03:12 Last Admin: 02/18/20 03:05 Dose: 5 mg Documented by: RONALDO Metoprolol Tartrate (Lopressor) 5 mg IV Q2HR PRN PRN Reason: Heart Rate- High Metoprolol Tartrate (Lopressor) 25 mg PO BID [facility] Thiamine HCl (Vitamin B-1) 100 mg PO DAILY [facility] Stop: 02/21/20 09:01 Last Admin: 02/18/20 07:42 Dose: 100 mg Documented by: RONALDO Vital Signs Vital signs: Vital Signs - 8 hr 02/17/20 16:22 02/17/20 16:45 02/17/20 17:30 Temperature 97.0 F L Pulse Rate 65 94 H 112 H Respiratory Rate 32 H 22 Blood Pressure 167/113 H Blood Pressure [Right Arm] 113/98 H 133/90 Pulse Oximetry 98 98 98 02/17/20 17:34 02/17/20 18:00 02/17/20 19:00 Temperature Pulse Rate 99 H 96 H 112 H Respiratory Rate 30 H 26 H Blood Pressure Blood Pressure [Right Arm] 133/90 133/90 Pulse Oximetry 98 98 MDM - Weakness <RYAN Wilkinson - Last Filed: 02/17/20 21:32> Differential Diagnosis Differential diagnosis: Likely acute myocardial infarction, anemia, hypoglycemia, hypothyroidism, rhabdomyolysis, dehydration and other (Hyperthyroidism, CHF, CK, alcoholic liver disease, ETOH dependence) Medical Records Attestation: I reviewed the patient's medical records. Lab Data Attestation: I reviewed the patient's lab results. Result diagrams: 02/18/20 04:40 02/18/20 04:40 Labs: Lab Results 02/17/20 02/17/20 02/17/20 Range/Units 16:25 16:25 16:25 WBC 3.3 L (4.5-11.0) X10^3/uL RBC 4.32 L (4.5-5.9) X10^6/uL Hgb 15.4 (13.5-17.5) g/dL Hct 43.8 (41-53) % MCV 101.4 H (80-100) fL MCH 35.7 H (26-34) PG MCHC 35.2 (30-36) % RDW 13.7 (11.6-14.8) % Plt Count 82 L (150-400) X10^3/uL Neut % (Auto) 48.9 L (50-75) % Lymph % (Auto) 33.0 (25-40) % [place] % (Auto) 14.0 (3-14) % Eos % (Auto) 1.3 L (2-4) % Baso % (Auto) 2.8 H (0-2) % Neut # (Auto) 1600 (9326-6012) /uL Lymph # (Auto) 1100 (8743-6872) /uL [place] # (Auto) 500 (0-900) /uL Eos # (Auto) 0 (0-450) /uL Baso # (Auto) 100 (0-100) /uL PT 11.7 (10.1-12.7) SECONDS INR 1.0 (0.9-1.3) APTT 31 (26.4-36.2) SECONDS Sodium 130 L (137-145) mmol/L Potassium 4.3 (3.4-5.1) mmol/L Chloride 96 L (98-107) mmol/L Carbon Dioxide 26 (22-32) mmol/L BUN 5 L (9-20) mg/dL Creatinine 0.64 L (0.66-1.25) mg/dL Estimated GFR > 60.0 (>60) mL/min BUN/Creatinine Ratio 7.8 (6-22) Glucose 109 (80-110) mg/dL Lactate (0.7-2.1) mmol/L Uric Acid (3.5-8.5) mg/dL Calcium 9.1 (8.4-10.2) mg/dL Phosphorus (2.3-3.7) mg/dL Magnesium (1.6-2.3) mg/dL Total Bilirubin 2.6 H (0.2-1.3) mg/dL Conjugated Bilirubin (0.0-0.3) md/dL AST 185 H (17-59) IU/L ALT 58 H (<50) IU/L Alkaline Phosphatase 99 (38-126) U/L Total Creatine Kinase 59 (55-170) U/L CK-MB (CK-2) TNP CK-MB (CK-2) Rel Index TNP Troponin I 0.013 (0.01-0.034) ng/mL NT-Pro-B Natriuret Pep (<125) pg/mL Total Protein 7.1 (6.3-8.2) g/dL Albumin 3.8 (3.5-5.0) g/dL Globulin 3.3 (1.7-4.1) g/dL Albumin/Globulin Ratio 1.2 (1.0-2.8) Lipase 165 (23-300) U/L Procalcitonin (<0.5) ng/mL TSH (0.47-4.68) uIU/mL Free T4 (0.78-2.19) ng/dL Urine RBC (0-5/HPF) Urine WBC (0-5/HPF) Amorphous Sediment Urine Bacteria (None) Ur Culture Indicated? 02/17/20 02/17/20 02/17/20 Range/Units 16:25 16:25 16:26 WBC (4.5-11.0) X10^3/uL RBC (4.5-5.9) X10^6/uL Hgb (13.5-17.5) g/dL Hct (41-53) % MCV (80-100) fL MCH (26-34) PG MCHC (30-36) % RDW (11.6-14.8) % Plt Count (150-400) X10^3/uL Neut % (Auto) (50-75) % Lymph % (Auto) (25-40) % [place] % (Auto) (3-14) % Eos % (Auto) (2-4) % Baso % (Auto) (0-2) % Neut # (Auto) (4699-2429) /uL Lymph # (Auto) (6944-5621) /uL [place] # (Auto) (0-900) /uL Eos # (Auto) (0-450) /uL Baso # (Auto) (0-100) /uL PT (10.1-12.7) SECONDS INR (0.9-1.3) APTT (26.4-36.2) SECONDS Sodium (137-145) mmol/L Potassium (3.4-5.1) mmol/L Chloride (98-107) mmol/L Carbon Dioxide (22-32) mmol/L BUN (9-20) mg/dL Creatinine (0.66-1.25) mg/dL Estimated GFR (>60) mL/min BUN/Creatinine Ratio (6-22) Glucose (80-110) mg/dL Lactate (0.7-2.1) mmol/L Uric Acid (3.5-8.5) mg/dL Calcium (8.4-10.2) mg/dL Phosphorus (2.3-3.7) mg/dL Magnesium 1.7 (1.6-2.3) mg/dL Total Bilirubin (0.2-1.3) mg/dL Conjugated Bilirubin 0.0 (0.0-0.3) md/dL AST (17-59) IU/L ALT (<50) IU/L Alkaline Phosphatase (38-126) U/L Total Creatine Kinase (55-170) U/L CK-MB (CK-2) CK-MB (CK-2) Rel Index Troponin I (0.01-0.034) ng/mL NT-Pro-B Natriuret Pep (<125) pg/mL Total Protein (6.3-8.2) g/dL Albumin (3.5-5.0) g/dL Globulin (1.7-4.1) g/dL Albumin/Globulin Ratio (1.0-2.8) Lipase (23-300) U/L Procalcitonin (<0.5) ng/mL TSH (0.47-4.68) uIU/mL Free T4 1.37 (0.78-2.19) ng/dL Urine RBC (0-5/HPF) Urine WBC (0-5/HPF) Amorphous Sediment Urine Bacteria (None) Ur Culture Indicated? 02/17/20 02/17/20 02/17/20 Range/Units 16:45 16:45 16:45 WBC (4.5-11.0) X10^3/uL RBC (4.5-5.9) X10^6/uL Hgb (13.5-17.5) g/dL Hct (41-53) % MCV (80-100) fL MCH (26-34) PG MCHC (30-36) % RDW (11.6-14.8) % Plt Count (150-400) X10^3/uL Neut % (Auto) (50-75) % Lymph % (Auto) (25-40) % [place] % (Auto) (3-14) % Eos % (Auto) (2-4) % Baso % (Auto) (0-2) % Neut # (Auto) (3959-8340) /uL Lymph # (Auto) (0568-1320) /uL [place] # (Auto) (0-900) /uL Eos # (Auto) (0-450) /uL Baso # (Auto) (0-100) /uL PT (10.1-12.7) SECONDS INR (0.9-1.3) APTT (26.4-36.2) SECONDS Sodium (137-145) mmol/L Potassium (3.4-5.1) mmol/L Chloride (98-107) mmol/L Carbon Dioxide (22-32) mmol/L BUN (9-20) mg/dL Creatinine (0.66-1.25) mg/dL Estimated GFR (>60) mL/min BUN/Creatinine Ratio (6-22) Glucose (80-110) mg/dL Lactate (0.7-2.1) mmol/L Uric Acid (3.5-8.5) mg/dL Calcium (8.4-10.2) mg/dL Phosphorus (2.3-3.7) mg/dL Magnesium (1.6-2.3) mg/dL Total Bilirubin (0.2-1.3) mg/dL Conjugated Bilirubin (0.0-0.3) md/dL AST (17-59) IU/L ALT (<50) IU/L Alkaline Phosphatase (38-126) U/L Total Creatine Kinase (55-170) U/L CK-MB (CK-2) CK-MB (CK-2) Rel Index Troponin I (0.01-0.034) ng/mL NT-Pro-B Natriuret Pep 2860 H (<125) pg/mL Total Protein (6.3-8.2) g/dL Albumin (3.5-5.0) g/dL Globulin (1.7-4.1) g/dL Albumin/Globulin Ratio (1.0-2.8) Lipase (23-300) U/L Procalcitonin < 0.05 (<0.5) ng/mL TSH 5.82 H (0.47-4.68) uIU/mL Free T4 (0.78-2.19) ng/dL Urine RBC (0-5/HPF) Urine WBC (0-5/HPF) Amorphous Sediment Urine Bacteria (None) Ur Culture Indicated? 02/17/20 02/17/20 02/17/20 Range/Units 18:40 19:35 19:35 WBC (4.5-11.0) X10^3/uL RBC (4.5-5.9) X10^6/uL Hgb (13.5-17.5) g/dL Hct (41-53) % MCV (80-100) fL MCH (26-34) PG MCHC (30-36) % RDW (11.6-14.8) % Plt Count (150-400) X10^3/uL Neut % (Auto) (50-75) % Lymph % (Auto) (25-40) % [place] % (Auto) (3-14) % Eos % (Auto) (2-4) % Baso % (Auto) (0-2) % Neut # (Auto) (5079-1591) /uL Lymph # (Auto) (2596-9485) /uL [place] # (Auto) (0-900) /uL Eos # (Auto) (0-450) /uL Baso # (Auto) (0-100) /uL PT (10.1-12.7) SECONDS INR (0.9-1.3) APTT (26.4-36.2) SECONDS Sodium (137-145) mmol/L Potassium (3.4-5.1) mmol/L Chloride (98-107) mmol/L Carbon Dioxide (22-32) mmol/L BUN (9-20) mg/dL Creatinine (0.66-1.25) mg/dL Estimated GFR (>60) mL/min BUN/Creatinine Ratio (6-22) Glucose (80-110) mg/dL Lactate 1.8 (0.7-2.1) mmol/L Uric Acid (3.5-8.5) mg/dL Calcium (8.4-10.2) mg/dL Phosphorus (2.3-3.7) mg/dL Magnesium (1.6-2.3) mg/dL Total Bilirubin (0.2-1.3) mg/dL Conjugated Bilirubin (0.0-0.3) md/dL AST (17-59) IU/L ALT (<50) IU/L Alkaline Phosphatase (38-126) U/L Total Creatine Kinase 57 (55-170) U/L CK-MB (CK-2) TNP CK-MB (CK-2) Rel Index TNP Troponin I 0.014 (0.01-0.034) ng/mL NT-Pro-B Natriuret Pep (<125) pg/mL Total Protein (6.3-8.2) g/dL Albumin (3.5-5.0) g/dL Globulin (1.7-4.1) g/dL Albumin/Globulin Ratio (1.0-2.8) Lipase (23-300) U/L Procalcitonin (<0.5) ng/mL TSH (0.47-4.68) uIU/mL Free T4 (0.78-2.19) ng/dL Urine RBC None seen (0-5/HPF) Urine WBC None seen (0-5/HPF) Amorphous Sediment 1+ Urine Bacteria None seen (None) Ur Culture Indicated? Cult not indicated 02/17/20 02/17/20 Range/Units 19:35 19:35 WBC (4.5-11.0) X10^3/uL RBC (4.5-5.9) X10^6/uL Hgb (13.5-17.5) g/dL Hct (41-53) % MCV (80-100) fL MCH (26-34) PG MCHC (30-36) % RDW (11.6-14.8) % Plt Count (150-400) X10^3/uL Neut % (Auto) (50-75) % Lymph % (Auto) (25-40) % [place] % (Auto) (3-14) % Eos % (Auto) (2-4) % Baso % (Auto) (0-2) % Neut # (Auto) (9170-0078) /uL Lymph # (Auto) (7489-7785) /uL [place] # (Auto) (0-900) /uL Eos # (Auto) (0-450) /uL Baso # (Auto) (0-100) /uL PT (10.1-12.7) SECONDS INR (0.9-1.3) APTT (26.4-36.2) SECONDS Sodium (137-145) mmol/L Potassium (3.4-5.1) mmol/L Chloride (98-107) mmol/L Carbon Dioxide (22-32) mmol/L BUN (9-20) mg/dL Creatinine (0.66-1.25) mg/dL Estimated GFR (>60) mL/min BUN/Creatinine Ratio (6-22) Glucose (80-110) mg/dL Lactate (0.7-2.1) mmol/L Uric Acid 5.3 (3.5-8.5) mg/dL Calcium (8.4-10.2) mg/dL Phosphorus 4.8 H (2.3-3.7) mg/dL Magnesium (1.6-2.3) mg/dL Total Bilirubin (0.2-1.3) mg/dL Conjugated Bilirubin (0.0-0.3) md/dL AST (17-59) IU/L ALT (<50) IU/L Alkaline Phosphatase (38-126) U/L Total Creatine Kinase (55-170) U/L CK-MB (CK-2) CK-MB (CK-2) Rel Index Troponin I (0.01-0.034) ng/mL NT-Pro-B Natriuret Pep (<125) pg/mL Total Protein (6.3-8.2) g/dL Albumin (3.5-5.0) g/dL Globulin (1.7-4.1) g/dL Albumin/Globulin Ratio (1.0-2.8) Lipase (23-300) U/L Procalcitonin (<0.5) ng/mL TSH (0.47-4.68) uIU/mL Free T4 (0.78-2.19) ng/dL Urine RBC (0-5/HPF) Urine WBC (0-5/HPF) Amorphous Sediment Urine Bacteria (None) Ur Culture Indicated? Urine Dip Bedside Urine Glucose Negative Bedside Urine Bilirubin - Negative Bedside Urine Ketone - Negative Urine Specific [place] 1.020 Bedside Urine Occult Blood - Negative Bedside Urine pH 6.0 Bedside Urine Protein +/- 15 Bedside Urine Urobilinogen 2+ 4mg Bedside Urine Nitrite - Negative Bedside Urine Leukocytes +/- 15 Esterase Imaging Data US - abdomen: Radiologist Impression: [address] [address] Ultrasound Report Signed Patient: Shmuel Simpson IMR#: [id number] : 4Acct:[id number] Age/Sex: 64 / MDate of Service: 02/17/20 Loc: ED Accession Number: [id number] Procedure: US abdomen limited Ordering Provider: Romario Duval PROCEDURE: US ABDOMEN LIMITED INDICATIONS: INCREASED LFTS; N/V TECHNIQUE: Real-time focused scanning was performed of the abdomen, with image documentation. COMPARISON: [facility], US, ABDOMEN COMPLETE, 07/29/2017, 8:38. [facility], CT, CT CHEST WO CON, 08/01/2019, 10:58. FINDINGS: There are gallstones. A 5 mm non-mobile stone seen in the gallbladder neck. No gallbladder wall thickening or pericholecystic fluid. The sonographic Rosas's sign was positive. Liver demonstrates increased echotexture IMPRESSION: 1. Cholelithiasis. There is a 5 mm non-mobile stone in the gallbladder neck. The patient has positive sonographic Rosas sign. No bladder wall thickening or pericholecystic fluid collection. Recommend clinical correlation for early acute cholecystitis. 2. Diffusely increased hepatic echotexture. This finding is most likely se condary to hepatic fatty infiltration although other hepatocellular disease may have a similar appearance. Recommend clinical correlation. Dictated by: Frances Ha M.D. on 02/17/2020 at 18:24 Approved by: Frances Ha M.D. on 02/17/2020 at 18:27 ECG Data Attestation: I personally reviewed and interpreted this ECG as follows: Prior ECG tracings: not available for review Interpretation: #1-Atrial fibrillation with RVR rate at 1:02 a.m.. Left axis deviation. QRS duration 88. QT/QTC 338/440. Left ventricle hypertrophy ST deression and inverted T waves in lateral leads in V4-6 and aVL which indicates ischemic changes. #2-AFib with RVR rate at 105. Left axis deviation. QRS duration 104, QT/QTC 361/422. ST depression/inverted T-waves in V4, V5, V6, aVL indicating lateral ischemia. MDM Narrative Medical decision making narrative: This is 64 year old male who is a poor historian presents to ED with vague symtpoms of nausea and occasioonal vomiting with decreased p.o. intake for last 3 weeks. HR is in 120's during triage. EKG shows atrial fibrillation with RVR rate at 105 with lateral leads ischemia and LVH. H/H is stable. Mild thrombocytopenia with platelet counts of 82. No leukocytosis. Normal coag. Slight hyponatremia 130 with chloride of 96. Normal potassium. Abnormal liver function test with total bilirubin of 2.6 with AST of 185 and ALT of 58. Normal alkaline phosphatase, conjugated bilirubin, and lipase. No jaundice, abdominal discomfort, ascites appreciated during physical exam. Cardiac enzymes #1 was within normal with troponin of 0.013. Elevated TSH level of 5.82 with normal FT4 of 1.37. Pro BNP was added to rule out ETOH induced cardiomyopathy. Chest x-ray shows normal heart size without acute findings. ProBNP was elevated to 2860. Patient had tachypnea in ED with rate ranging in 18 through 32. The patient did not endorsed chest pain, dyspnea, abdominal pain. The patient had received NS infusion and gentle Banana bag infusion prior to proBNP was resulted. Patient received 40 mg IV Lasix had several urine output while in ED. urine dipstick with small amount of urine leukoesterase and negative nitrite. Uro bilinogen of 2+. Micro urine test without WBC or bacteria. The patient did not mentioned that he was evaluated by ABDIRIZAK Matias today before coming to ED as according to EMR with generalized weakness, frequent falls, nausea and vomiting, fatigue, short of breath. Patient specifically did not reported chest pain, breathing difficulty but reported dizziness. US of [facility] was added due to abnormal liver function test and ongoing nausea and vomiting. It shows cholelithiasis of 5 mm nonmobile stone in the gallbladder neck without thickening of bladder wall or pericholecystic fluid with positive sonographic Rosas's sign. Also it showed diffusely increased hepatic echotexture indicating hepatic fatty infiltration. Procalcitonin and lactate (this was done after receiving some IVF) were within normal limits. The patient was afebrile within normal or elevated blood pressure. Given the long history of ETOH use, the patient may have alcohol induced liver disease, cirrhosis. #2nd cardiac enzyme shows Trop of 0.014 without changed EKG. HR is in 90-140's but mostly in 100's in ED. Medication was not given for the rate control. Although the patient denied history of AFib, according to EMR, patient has history of AFib in July 2019. . Patient denies taking aspirin or anticoagulant but according to EMR he has delayed ASA 81mg included in med list. Patient has low platelet counts today and states he is easily bruised. Patient states he has been unstable over last couple of weeks and had couple of falls at home. ChadsVasc score 1 and Chads2 for Afib was 2. Concerns for alcohol induced heart failure vs. COPD as evidence by elevated proBNP. No focal neurologic deficit per physical exam with 0 NIH socre. Patient's decreased p.o. intake secondary to nausea and vomiting is likely due to cholelithiasis or alcohol induced liver disease. Patient's generalize weakness could be due to decreased p.o. intake vs. Afib with RVR vs. hyponatremia vs. hypothyrodism. Dr. Alcala is consulted the patient for elevated liver function test and possible cholelithiasis. He is planning to evaluate patient at a later time. Hospitalist, ANIHTA Mo kindly accepted the patient's care for not anticoagulated AFib, elevated proBNP, hypothyroidism, alcohol dependence, hyponatremia for further evaluation with echocardiogram, serial troponin and further treatment including PT evaluation. Patient was medicated with 0.5 mg of Ativan due to increased tremor in hands to prevent alcohol withdrawal symptoms or DT. The patient lives alone and has difficult time taking care of himself and will require case management consult. <Jose Escamilla MD - Last Filed: 02/18/20 08:08> Lab Data Labs: Lab Results 02/17/20 02/17/20 02/17/20 Range/Units 16:25 16:25 16:25 WBC 3.3 L (4.5-11.0) X10^3/uL RBC 4.32 L (4.5-5.9) X10^6/uL Hgb 15.4 (13.5-17.5) g/dL Hct 43.8 (41-53) % MCV 101.4 H (80-100) fL MCH 35.7 H (26-34) PG MCHC 35.2 (30-36) % RDW 13.7 (11.6-14.8) % Plt Count 82 L (150-400) X10^3/uL Neut % (Auto) 48.9 L (50-75) % Lymph % (Auto) 33.0 (25-40) % [place] % (Auto) 14.0 (3-14) % Eos % (Auto) 1.3 L (2-4) % Baso % (Auto) 2.8 H (0-2) % Neut # (Auto) 1600 (1253-3593) /uL Lymph # (Auto) 1100 (7862-1374) /uL [place] # (Auto) 500 (0-900) /uL Eos # (Auto) 0 (0-450) /uL Baso # (Auto) 100 (0-100) /uL PT 11.7 (10.1-12.7) SECONDS INR 1.0 (0.9-1.3) APTT 31 (26.4-36.2) SECONDS Sodium 130 L (137-145) mmol/L Potassium 4.3 (3.4-5.1) mmol/L Chloride 96 L (98-107) mmol/L Carbon Dioxide 26 (22-32) mmol/L BUN 5 L (9-20) mg/dL Creatinine 0.64 L (0.66-1.25) mg/dL Estimated GFR > 60.0 (>60) mL/min BUN/Creatinine Ratio 7.8 (6-22) Glucose 109 (80-110) mg/dL Lactate (0.7-2.1) mmol/L Uric Acid (3.5-8.5) mg/dL Calcium 9.1 (8.4-10.2) mg/dL Phosphorus (2.3-3.7) mg/dL Magnesium (1.6-2.3) mg/dL Total Bilirubin 2.6 H (0.2-1.3) mg/dL Conjugated Bilirubin (0.0-0.3) md/dL AST 185 H (17-59) IU/L ALT 58 H (<50) IU/L Alkaline Phosphatase 99 (38-126) U/L Total Creatine Kinase 59 (55-170) U/L CK-MB (CK-2) TNP CK-MB (CK-2) Rel Index TNP Troponin I 0.013 (0.01-0.034) ng/mL NT-Pro-B Natriuret Pep (<125) pg/mL Total Protein 7.1 (6.3-8.2) g/dL Albumin 3.8 (3.5-5.0) g/dL Globulin 3.3 (1.7-4.1) g/dL Albumin/Globulin Ratio 1.2 (1.0-2.8) Lipase 165 (23-300) U/L Procalcitonin (<0.5) ng/mL TSH (0.47-4.68) uIU/mL Free T4 (0.78-2.19) ng/dL Urine RBC (0-5/HPF) Urine WBC (0-5/HPF) Amorphous Sediment Urine Bacteria (None) Ur Culture Indicated? 02/17/20 02/17/20 02/17/20 Range/Units 16:25 16:25 16:26 WBC (4.5-11.0) X10^3/uL RBC (4.5-5.9) X10^6/uL Hgb (13.5-17.5) g/dL Hct (41-53) % MCV (80-100) fL MCH (26-34) PG MCHC (30-36) % RDW (11.6-14.8) % Plt Count (150-400) X10^3/uL Neut % (Auto) (50-75) % Lymph % (Auto) (25-40) % [place] % (Auto) (3-14) % Eos % (Auto) (2-4) % Baso % (Auto) (0-2) % Neut # (Auto) (3713-0933) /uL Lymph # (Auto) (3318-3075) /uL [place] # (Auto) (0-900) /uL Eos # (Auto) (0-450) /uL Baso # (Auto) (0-100) /uL PT (10.1-12.7) SECONDS INR (0.9-1.3) APTT (26.4-36.2) SECONDS Sodium (137-145) mmol/L Potassium (3.4-5.1) mmol/L Chloride (98-107) mmol/L Carbon Dioxide (22-32) mmol/L BUN (9-20) mg/dL Creatinine (0.66-1.25) mg/dL Estimated GFR (>60) mL/min BUN/Creatinine Ratio (6-22) Glucose (80-110) mg/dL Lactate (0.7-2.1) mmol/L Uric Acid (3.5-8.5) mg/dL Calcium (8.4-10.2) mg/dL Phosphorus (2.3-3.7) mg/dL Magnesium 1.7 (1.6-2.3) mg/dL Total Bilirubin (0.2-1.3) mg/dL Conjugated Bilirubin 0.0 (0.0-0.3) md/dL AST (17-59) IU/L ALT (<50) IU/L Alkaline Phosphatase (38-126) U/L Total Creatine Kinase (55-170) U/L CK-MB (CK-2) CK-MB (CK-2) Rel Index Troponin I (0.01-0.034) ng/mL NT-Pro-B Natriuret Pep (<125) pg/mL Total Protein (6.3-8.2) g/dL Albumin (3.5-5.0) g/dL Globulin (1.7-4.1) g/dL Albumin/Globulin Ratio (1.0-2.8) Lipase (23-300) U/L Procalcitonin (<0.5) ng/mL TSH (0.47-4.68) uIU/mL Free T4 1.37 (0.78-2.19) ng/dL Urine RBC (0-5/HPF) Urine WBC (0-5/HPF) Amorphous Sediment Urine Bacteria (None) Ur Culture Indicated? 02/17/20 02/17/20 02/17/20 Range/Units 16:45 16:45 16:45 WBC (4.5-11.0) X10^3/uL RBC (4.5-5.9) X10^6/uL Hgb (13.5-17.5) g/dL Hct (41-53) % MCV (80-100) fL MCH (26-34) PG MCHC (30-36) % RDW (11.6-14.8) % Plt Count (150-400) X10^3/uL Neut % (Auto) (50-75) % Lymph % (Auto) (25-40) % [place] % (Auto) (3-14) % Eos % (Auto) (2-4) % Baso % (Auto) (0-2) % Neut # (Auto) (9754-1739) /uL Lymph # (Auto) (3995-4539) /uL [place] # (Auto) (0-900) /uL Eos # (Auto) (0-450) /uL Baso # (Auto) (0-100) /uL PT (10.1-12.7) SECONDS INR (0.9-1.3) APTT (26.4-36.2) SECONDS Sodium (137-145) mmol/L Potassium (3.4-5.1) mmol/L Chloride (98-107) mmol/L Carbon Dioxide (22-32) mmol/L BUN (9-20) mg/dL Creatinine (0.66-1.25) mg/dL Estimated GFR (>60) mL/min BUN/Creatinine Ratio (6-22) Glucose (80-110) mg/dL Lactate (0.7-2.1) mmol/L Uric Acid (3.5-8.5) mg/dL Calcium (8.4-10.2) mg/dL Phosphorus (2.3-3.7) mg/dL Magnesium (1.6-2.3) mg/dL Total Bilirubin (0.2-1.3) mg/dL Conjugated Bilirubin (0.0-0.3) md/dL AST (17-59) IU/L ALT (<50) IU/L Alkaline Phosphatase (38-126) U/L Total Creatine Kinase (55-170) U/L CK-MB (CK-2) CK-MB (CK-2) Rel Index Troponin I (0.01-0.034) ng/mL NT-Pro-B Natriuret Pep 2860 H (<125) pg/mL Total Protein (6.3-8.2) g/dL Albumin (3.5-5.0) g/dL Globulin (1.7-4.1) g/dL Albumin/Globulin Ratio (1.0-2.8) Lipase (23-300) U/L Procalcitonin < 0.05 (<0.5) ng/mL TSH 5.82 H (0.47-4.68) uIU/mL Free T4 (0.78-2.19) ng/dL Urine RBC (0-5/HPF) Urine WBC (0-5/HPF) Amorphous Sediment Urine Bacteria (None) Ur Culture Indicated? 02/17/20 02/17/2020 Range/Units 18:40 19:35 19:35 WBC (4.5-11.0) X10^3/uL RBC (4.5-5.9) X10^6/uL Hgb (13.5-17.5) g/dL Hct (41-53) % MCV (80-100) fL MCH (26-34) PG MCHC (30-36) % RDW (11.6-14.8) % Plt Count (150-400) X10^3/uL Neut % (Auto) (50-75) % Lymph % (Auto) (25-40) % [place] % (Auto) (3-14) % Eos % (Auto) (2-4) % Baso % (Auto) (0-2) % Neut # (Auto) (5122-7779) /uL Lymph # (Auto) (8828-9195) /uL [place] # (Auto) (0-900) /uL Eos # (Auto) (0-450) /uL Baso # (Auto) (0-100) /uL PT (10.1-12.7) SECONDS INR (0.9-1.3) APTT (26.4-36.2) SECONDS Sodium (137-145) mmol/L Potassium (3.4-5.1) mmol/L Chloride (98-107) mmol/L Carbon Dioxide (22-32) mmol/L BUN (9-20) mg/dL Creatinine (0.66-1.25) mg/dL Estimated GFR (>60) mL/min BUN/Creatinine Ratio (6-22) Glucose (80-110) mg/dL Lactate 1.8 (0.7-2.1) mmol/L Uric Acid (3.5-8.5) mg/dL Calcium (8.4-10.2) mg/dL Phosphorus (2.3-3.7) mg/dL Magnesium (1.6-2.3) mg/dL Total Bilirubin (0.2-1.3) mg/dL Conjugated Bilirubin (0.0-0.3) md/dL AST (17-59) IU/L ALT (<50) IU/L Alkaline Phosphatase (38-126) U/L Total Creatine Kinase 57 (55-170) U/L CK-MB (CK-2) TNP CK-MB (CK-2) Rel Index TNP Troponin I 0.014 (0.01-0.034) ng/mL NT-Pro-B Natriuret Pep (<125) pg/mL Total Protein (6.3-8.2) g/dL Albumin (3.5-5.0) g/dL Globulin (1.7-4.1) g/dL Albumin/Globulin Ratio (1.0-2.8) Lipase (23-300) U/L Procalcitonin (<0.5) ng/mL TSH (0.47-4.68) uIU/mL Free T4 (0.78-2.19) ng/dL Urine RBC None seen (0-5/HPF) Urine WBC None seen (0-5/HPF) Amorphous Sediment 1+ Urine Bacteria None seen (None) Ur Culture Indicated? Cult not indicated 02/17/20 02/17/20 Range/Units 19:35 19:35 WBC (4.5-11.0) X10^3/uL RBC (4.5-5.9) X10^6/uL Hgb (13.5-17.5) g/dL Hct (41-53) % MCV (80-100) fL MCH (26-34) PG MCHC (30-36) % RDW (11.6-14.8) % Plt Count (150-400) X10^3/uL Neut % (Auto) (50-75) % Lymph % (Auto) (25-40) % [place] % (Auto) (3-14) % Eos % (Auto) (2-4) % Baso % (Auto) (0-2) % Neut # (Auto) (4762-7740) /uL Lymph # (Auto) (9389-1899) /uL [place] # (Auto) (0-900) /uL Eos # (Auto) (0-450) /uL Baso # (Auto) (0-100) /uL PT (10.1-12.7) SECONDS INR (0.9-1.3) APTT (26.4-36.2) SECONDS Sodium (137-145) mmol/L Potassium (3.4-5.1) mmol/L Chloride (98-107) mmol/L Carbon Dioxide (22-32) mmol/L BUN (9-20) mg/dL Creatinine (0.66-1.25) mg/dL Estimated GFR (>60) mL/min BUN/Creatinine Ratio (6-22) Glucose (80-110) mg/dL Lactate (0.7-2.1) mmol/L Uric Acid 5.3 (3.5-8.5) mg/dL Calcium (8.4-10.2) mg/dL Phosphorus 4.8 H (2.3-3.7) mg/dL Magnesium (1.6-2.3) mg/dL Total Bilirubin (0.2-1.3) mg/dL Conjugated Bilirubin (0.0-0.3) md/dL AST (17-59) IU/L ALT (<50) IU/L Alkaline Phosphatase (38-126) U/L Total Creatine Kinase (55-170) U/L CK-MB (CK-2) CK-MB (CK-2) Rel Index Troponin I (0.01-0.034) ng/mL NT-Pro-B Natriuret Pep (<125) pg/mL Total Protein (6.3-8.2) g/dL Albumin (3.5-5.0) g/dL Globulin (1.7-4.1) g/dL Albumin/Globulin Ratio (1.0-2.8) Lipase (23-300) U/L Procalcitonin (<0.5) ng/mL TSH (0.47-4.68) uIU/mL Free T4 (0.78-2.19) ng/dL Urine RBC (0-5/HPF) Urine WBC (0-5/HPF) Amorphous Sediment Urine Bacteria (None) Ur Culture Indicated? Urine Dip Bedside Urine Glucose Negative Bedside Urine Bilirubin - Negative Bedside Urine Ketone - Negative Urine Specific [place] 1.020 Bedside Urine Occult Blood - Negative Bedside Urine pH 6.0 Bedside Urine Protein +/- 15 Bedside Urine Urobilinogen 2+ 4mg Bedside Urine Nitrite - Negative Bedside Urine Leukocytes +/- 15 Esterase Discharge Plan Departure Patient Disposition: Admitted As Inpatient Clinical Impression: New onset a-fib, Elevated liver function tests, Hyponatremia Hypothyroidism Qualifiers: Hypothyroidism type: unspecified Qualified Code(s): E03.9 - Hypothyroidism, unspecified Cholelithiasis Qualifiers: Cholelithiasis location: other site Biliary obstruction: without biliary obstruction Qualified Code(s): K80.80 - Other cholelithiasis without obstruction Alcohol dependence Qualifiers: Substance use status: other alcohol-induced disorder Qualified Code(s): F10.288 - Alcohol dependence with other alcohol-induced disorder Discharge Date/Time: 02/17/20 20:59 Referrals: Jose Wyman MD [Primary Care Provider] - Admit Date/Time: 02/17/20 20:29 Admit Provider: Jamison Mo
[2020-02-17 18:02] LABS: NT-proBNP (BNP-Adult 18+) 2860 pg/mL (<125)
[2020-02-17 18:03] LABS: Magnesium 1.7 mg/dL (1.6-2.3)
[2020-02-17 18:25] LABS: Thyroid Stimulating Hormone 5.82 uIU/mL (0.47-4.68)
[2020-02-17] MEDS: FUROSEMIDE 40 MG/4 ML VIAL IV (18:43)
[2020-02-17 18:49] LABS: Bacteria Urine None Seen; RBC Urine None Seen (0-5/HPF); WBC Urine None Seen (0-5/HPF)
[2020-02-17 19:08] LABS: Amorphous Sediment Urine 1+; Culture Indicated Urine Cult Not Indicated
[2020-02-17 19:33] LABS: Procalcitonin < 0.05 ng/mL (<0.5)
[2020-02-17 19:53] LABS: Creatine Kinase 57 U/L (55-170)
[2020-02-17 19:54] LABS: Lactate (Lactic Acid) 1.8 mmol/L (0.7-2.1)
[2020-02-17] MEDS: LORazepam 2 MG/ML INJ 0.5 MG IV (19:56)
[2020-02-17 20:04] LABS: Free T4, Direct Thyroxine 1.37 ng/dL (0.78-2.19)
[2020-02-17 20:06] LABS: Troponin I 0.014 ng/mL (0.01-0.034)
[2020-02-17 20:40] LABS: Phosphorous 4.8 mg/dL (2.3-3.7)
[2020-02-17 20:41] LABS: Uric Acid 5.3 mg/dL (3.5-8.5)
--- NOTE | 2020-02-17 20:59 | PC.NURSE ---
complete bed change done. incontinent of large amount of urine.
[2020-02-17] MEDS: LORazepam 2 MG/ML INJ IV ×2 (21:09→23:28)
--- NOTE | 2020-02-17 21:21 | PC.NURSE ---
Synthroid sent to pharmacy. Gurjitet placed in safe.
[2020-02-17 21:51] LABS: UR Morphine/Opiate cutoff 300 Negative (Negative); Ur Creatinine 1.025 (Normal); Ur Specific Gravity 20 (Normal); Urine Amphetamines Negative (Negative); Urine Barbiturates Negative (Negative); Urine Benzodiazepines Negative (Negative); Urine Cocaine Negative (Negative); Urine MDMA Negative (Negative); Urine Methadone Negative (Negative); Urine Methamphetamines Negative (Negative); Urine Oxycodone Negative (Negative); Urine Phencyclidine Negative (Negative); Urine Tetrahydrocannabinol Negative (Negative); Urine Tricyclic Antidepressant Negative (Negative); Urine pH 4 (Normal)
[2020-02-17] MEDS: METOPROLOL IR 25 MG TABLET PO (22:21)
[2020-02-17] MEDS: FAMOTIDINE 20 MG/50 ML PIGGYBACK 200 MG IV (22:22)
[2020-02-17] MEDS: ENOXAPARIN 80 MG/0.8 ML SYRINGE 70 MG SUBCUT (22:28)
--- NOTE | 2020-02-17 22:29 | PM.HP.1 ---
History of Present Illness History of Present Illness Date Patient Seen: 02/17/20 Time Patient Seen: 21:42 Chief complaint: weakness,dizziness Narrative: Mr. Morgan Simpson is a 64-year-old male who is a current smoker and has a past medical history significant for hypothyroidism, GERD with esophagitis, and eczema who was sent to the ER from the respiratory clinic with complaints of shortness of breath, fatigue and weakness with falls, nausea and vomiting for 3 weeks. The patient is a questionable historian at this time due to medications in clinical condition. Information is gleaned from the patient as well as the medical record. The patient reports increasing weakness and fatigue for 3 weeks stating he feels ?run down?. The patient describes increasing debilitation impairing his ability to care for himself. He endorses being unsteady on his feet and having fallen multiple times at home where he lives alone. Per the medical record the patient has been receiving Meals on wheels for the last 6 weeks. The patient does have history of alcohol dependence consuming 6 beers daily and a 5th of whiskey per week since age 17. His last drink was 2 days ago. The patient denies recent illness, fevers or chills. He has had no known COVID-19 exposure. He denies headaches or dizziness, visual changes, nasal congestion or sore throat. He denies complaints head trauma, neck or back pain. He has no chest pain and denies palpitations. He does have shortness of breath and has history of chronic cough though not present at this time. He denies complaints of abdominal pain but has a history of occurred with severe esophagitis. He relates having frequent nausea and having vomiting. Reports no bloody emesis, hematochezia or melena. He is unsure of his last bowel movement and states no difficulties with urinating. At baseline prior to recent events the patient has been active in walking daily. Dr. Wyman is the patient's PCP. The patient was to have appointments with cardiology and have an EGD done in October both of which were canceled due to COVID-19. Upon arrival to the ER the patient has temperature 97.5?, heart rate of 60, blood pressure 150/90 with respirations of 18 saturating 98% on room air. A chest x-ray obtained which finds no acute cardiopulmonary processes and abdominal ultrasound finds cholelithiasis with a 5 mm nonmobile stone lodged in the gallbladder neck with sonographic positive for a sign, no wall thickening or pericolic static fluid noted, diffuse increased hepatic echotexture. Twelve lead EKG is obtained of finding atrial fibrillation with RVR with a ventricular rate of 105 with PVC, left ventricular hypertrophy with left anterior fascicular block with lateral ST depression. On laboratory analysis the patient has white count of 3.3, hemoglobin of 15.4, hematocrit of 43.8, platelets of 82. On coagulation he has a PT of 11.7, INR 1.0, PTT of 31. He is hyponatremic at 130 with potassium 4.3. His BUN is 5 with a creatinine 0.64. His nonfasting glucose is 109. His magnesium is 1.7. On liver functions his total bilirubin is 2.6 with an AST of 185, ALT of 58 and alk-phos of 99. His albumin is 3.8. He has troponin of 0.013 and a proBNP of 2860. TSH is obtained and found to be 5.82. In the ER the patient received normal saline, lorazepam 0.5 mg IV Lasix 40 mg IV and was started on a banana bag at 125 cc/hour. The patient is admitted to the medicine service for new onset atrial fibrillation of unknown duration, weakness and ataxia and alcohol withdrawals. Patient History Medical History (Updated 02/17/20 @ 23:00 by RYAN Johnson) Alcohol dependence (Chronic) Cataracts, bilateral (Resolved 2007) Chronic cough (Chronic 1999) COPD (chronic obstructive pulmonary disease) (Inactive) Dislocated elbow (Resolved 2000) Dislocated shoulder (Resolved 2001) Eczema (Chronic 2016) Elevated liver function tests (Inactive) Fractures (Resolved ~1963) GERD (gastroesophageal reflux disease) (Chronic) Hypothyroidism (Chronic) Impaired vision (Acute) Pulmonary nodule (Inactive ~07/2019) Surgical History (Updated 02/17/20 @ 17:43 by RYAN Wilkinson) History of cataract removal with insertion of prosthetic lens History of nasal surgery (Resolved 1963) History of repair of hiatal hernia (Acute) Hx of hernia repair (Resolved 1995) Family & Social History Family History Father History of arteriosclerotic cardiovascular disease History of emphysema Mother Cancer Grandfather No problems noted. Grandmother Stroke Grandfather No problems noted. Grandmother No problems noted. Social History: household members none Prior Living Arrangements Apartment/Condo Safety & Behavioral: Feels Safe in Current Yes Environment Been Physically Hurt or No Threatened By a Person Suicidal Ideation Description None Tobacco & Substance use: Smoking Status Current every day smoker Smoking packs per day 0.5 alcohol intake current alcohol intake frequency 3 or more drinks per day Substance Use Type does not use Comment: The patient is and lives alone in an apartment. 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 Alcohol: Patient reports drinking 6 beers daily and 1/5 of whiskey per week. Substance use: The patient denies recreational pharmaceuticals herbal or cannabis products. Advanced directives: The patient a present time does not have capacity to determine code status therefore the patient will be made FULL CODE. The patient's brother Nicko Simpson is is designated contact acid plant operator. Meds Home Medications and Allergies Home Medications Medication Instructions Recorded Confirmed Type aspirin 81 mg tablet,delayed 81 mg PO DAILY #90 tab 07/31/19 02/17/20 Rx release levothyroxine 75 mcg tablet 75 mcg PO QDAY #90 tab 12/12/19 02/17/20 Rx Allergies Allergy/AdvReac Type Severity Reaction Status Date / Time ciprofloxacin [From CIPRO] AdvReac Severe SWELLING Verified 02/17/20 16:25 IN HANDS, ARMS, LEGS AND FEET pantoprazole AdvReac Intermediate n/v, Verified 02/17/20 16:25 omeprazole okay Review of Systems Review of Systems ROS: Yes All systems reviewed with the patient and are negative except as otherwise documented Exam Vital Signs (past 8 hours): - 02/17/20 16:22 02/17/20 16:45 02/17/20 17:30 Temperature 97.0 F L Pulse Rate 65 94 H 112 H Respiratory Rate 32 H 22 Blood Pressure 167/113 H Blood Pressure [Right Arm] 113/98 H 133/90 Pulse Oximetry 98 98 98 02/17/20 17:34 02/17/20 18:00 02/17/20 19:00 Temperature Pulse Rate 99 H 96 H 112 H Respiratory Rate 30 H 26 H Blood Pressure Blood Pressure [Right Arm] 133/90 133/90 Pulse Oximetry 98 98 02/17/20 20:45 02/17/20 21:24 Temperature 98.5 F Pulse Rate 116 H Respiratory Rate 21 Blood Pressure 156/110 H 160/90 H Blood Pressure [Right Arm] Pulse Oximetry 96 Oxygen Delivery Method Room Air Oxygen Flow Rate 0 Narrative Exam Narrative: GENERAL APPEARANCE: well developed, slender male appearing older than his stated age with slow responses but in no acute distress. HEENT: Atraumatic, mild left facial droop, no ptosis appreciated, PERRLA, conjunctiva clear, EOMs intact with bilateral nystagmus, no rhinorrhea, mucous membranes are moist and pink. NECK/THYROID: neck supple, no JVD, no carotid bruit, no thyromegaly, trachea midline. LYMPH NODES: no cervical or supraclavicular lymphadenopathy. SKIN: [place], warm and dry, multiple areas erythema/ecchymosis on extremities and torso, scabbed lesion 2 cm right knee, abrasions to back. HEART: Irregularly irregular rhythm, S1-S2, 1/6 systolic murmur, no rubs or gallops, brisk capillary refill, no edema LUNGS: Breath sounds are clear but diminished in all meadows without coarseness crackles or wheezing, no cough present CHEST: Symmetrical movement, no accessory muscle use, shallow tidal volume common no pain on AP and lateral compression. ABDOMEN: Soft, mild bilateral upper quadrant abdominal tenderness, negative Rosas sign,, no organomegaly, no flank or suprapubic tenderness, active bowel tones. BACK: Normal curvature, nontender to palpation, no pain on straight leg raise EXTREMITIES: moves all extremities, drift present left arm and leg but not to bed, no deformities or joint effusions. NEUROLOGIC: AAO x to person place and date, unable to recall events, NIH score 7 left facial droop slightly slurred speech difficulty with word finding, decreased sensation left lower extremity, PSYCH: Flat affect, short arm monosyllabic responses to questions, delayed response to questions, requiring repeated requests to perform an action. Objective Labs Result Diagrams: 02/17/20 16:25 02/17/20 16:25 Labs: Laboratory Results - last 24 hr 02/17/20 02/17/20 02/17/20 16:25 16:25 16:25 WBC 3.3 L RBC 4.32 L Hgb 15.4 Hct 43.8 MCV 101.4 H MCH 35.7 H MCHC 35.2 RDW 13.7 Plt Count 82 L Neut % (Auto) 48.9 L Lymph % (Auto) 33.0 Gregory % (Auto) 14.0 Eos % (Auto) 1.3 L Baso % (Auto) 2.8 H Neut # (Auto) 1600 Lymph # (Auto) 1100 Gregory # (Auto) 500 Eos # (Auto) 0 Baso # (Auto) 100 PT 11.7 INR 1.0 APTT 31 Sodium 130 L Potassium 4.3 Chloride 96 L Carbon Dioxide 26 BUN 5 L Creatinine 0.64 L Estimated GFR > 60.0 BUN/Creatinine Ratio 7.8 Glucose 109 Lactate Uric Acid Calcium 9.1 Phosphorus Magnesium Total Bilirubin 2.6 H Conjugated Bilirubin AST 185 H ALT 58 H Alkaline Phosphatase 99 Total Creatine Kinase 59 CK-MB (CK-2) TNP CK-MB (CK-2) Rel Index TNP Troponin I 0.013 NT-Pro-B Natriuret Pep Total Protein 7.1 Albumin 3.8 Globulin 3.3 Albumin/Globulin Ratio 1.2 Lipase 165 Procalcitonin TSH Free T4 Urine RBC Urine WBC Amorphous Sediment Urine Bacteria Ur Culture Indicated? U Opiates 300ng/mL cut Ur Oxycodone Screen Urine Methadone Screen Ur Barbiturates Screen U Tricyclic Antidepress Ur Phencyclidine Scrn Ur Amphetamines Screen U Methamphetamines Scrn Ur MDMA Scrn (Ecstasy) U Benzodiazepines Scrn Urine Cocaine Screen U Marijuana (THC) Screen 02/17/20 02/17/20 02/17/20 16:25 16:25 16:26 WBC RBC Hgb Hct MCV MCH MCHC RDW Plt Count Neut % (Auto) Lymph % (Auto) Gregory % (Auto) Eos % (Auto) Baso % (Auto) Neut # (Auto) Lymph # (Auto) Gregory # (Auto) Eos # (Auto) Baso # (Auto) PT INR APTT Sodium Potassium Chloride Carbon Dioxide BUN Creatinine Estimated GFR BUN/Creatinine Ratio Glucose Lactate Uric Acid Calcium Phosphorus Magnesium 1.7 Total Bilirubin Conjugated Bilirubin 0.0 AST ALT Alkaline Phosphatase Total Creatine Kinase CK-MB (CK-2) CK-MB (CK-2) Rel Index Troponin I NT-Pro-B Natriuret Pep Total Protein Albumin Globulin Albumin/Globulin Ratio Lipase Procalcitonin TSH Free T4 1.37 Urine RBC Urine WBC Amorphous Sediment Urine Bacteria Ur Culture Indicated? U Opiates 300ng/mL cut Ur Oxycodone Screen Urine Methadone Screen Ur Barbiturates Screen U Tricyclic Antidepress Ur Phencyclidine Scrn Ur Amphetamines Screen U Methamphetamines Scrn Ur MDMA Scrn (Ecstasy) U Benzodiazepines Scrn Urine Cocaine Screen U Marijuana (THC) Screen 02/17/20 02/17/20 02/17/20 16:45 16:45 16:45 WBC RBC Hgb Hct MCV MCH MCHC RDW Plt Count Neut % (Auto) Lymph % (Auto) Gregory % (Auto) Eos % (Auto) Baso % (Auto) Neut # (Auto) Lymph # (Auto) Gregory # (Auto) Eos # (Auto) Baso # (Auto) PT INR APTT Sodium Potassium Chloride Carbon Dioxide BUN Creatinine Estimated GFR BUN/Creatinine Ratio Glucose Lactate Uric Acid Calcium Phosphorus Magnesium Total Bilirubin Conjugated Bilirubin AST ALT Alkaline Phosphatase Total Creatine Kinase CK-MB (CK-2) CK-MB (CK-2) Rel Index Troponin I NT-Pro-B Natriuret Pep 2860 H Total Protein Albumin Globulin Albumin/Globulin Ratio Lipase Procalcitonin < 0.05 TSH 5.82 H Free T4 Urine RBC Urine WBC Amorphous Sediment Urine Bacteria Ur Culture Indicated? U Opiates 300ng/mL cut Ur Oxycodone Screen Urine Methadone Screen Ur Barbiturates Screen U Tricyclic Antidepress Ur Phencyclidine Scrn Ur Amphetamines Screen U Methamphetamines Scrn Ur MDMA Scrn (Ecstasy) U Benzodiazepines Scrn Urine Cocaine Screen U Marijuana (THC) Screen 02/17/20 02/17/20 02/17/20 18:40 19:35 19:35 WBC RBC Hgb Hct MCV MCH MCHC RDW Plt Count Neut % (Auto) Lymph % (Auto) Gregory % (Auto) Eos % (Auto) Baso % (Auto) Neut # (Auto) Lymph # (Auto) Gregory # (Auto) Eos # (Auto) Baso # (Auto) PT INR APTT Sodium Potassium Chloride Carbon Dioxide BUN Creatinine Estimated GFR BUN/Creatinine Ratio Glucose Lactate 1.8 Uric Acid Calcium Phosphorus Magnesium Total Bilirubin Conjugated Bilirubin AST ALT Alkaline Phosphatase Total Creatine Kinase 57 CK-MB (CK-2) TNP CK-MB (CK-2) Rel Index TNP Troponin I 0.014 NT-Pro-B Natriuret Pep Total Protein Albumin Globulin Albumin/Globulin Ratio Lipase Procalcitonin TSH Free T4 Urine RBC None seen Urine WBC None seen Amorphous Sediment 1+ Urine Bacteria None seen Ur Culture Indicated? Cult not indicated U Opiates 300ng/mL cut Ur Oxycodone Screen Urine Methadone Screen Ur Barbiturates Screen U Tricyclic Antidepress Ur Phencyclidine Scrn Ur Amphetamines Screen U Methamphetamines Scrn Ur MDMA Scrn (Ecstasy) U Benzodiazepines Scrn Urine Cocaine Screen U Marijuana (THC) Screen 02/17/20 02/17/20 02/17/20 19:35 19:35 21:10 WBC RBC Hgb Hct MCV MCH MCHC RDW Plt Count Neut % (Auto) Lymph % (Auto) Gregory % (Auto) Eos % (Auto) Baso % (Auto) Neut # (Auto) Lymph # (Auto) Gregory # (Auto) Eos # (Auto) Baso # (Auto) PT INR APTT Sodium Potassium Chloride Carbon Dioxide BUN Creatinine Estimated GFR BUN/Creatinine Ratio Glucose Lactate Uric Acid 5.3 Calcium Phosphorus 4.8 H Magnesium Total Bilirubin Conjugated Bilirubin AST ALT Alkaline Phosphatase Total Creatine Kinase CK-MB (CK-2) CK-MB (CK-2) Rel Index Troponin I NT-Pro-B Natriuret Pep Total Protein Albumin Globulin Albumin/Globulin Ratio Lipase Procalcitonin TSH Free T4 Urine RBC Urine WBC Amorphous Sediment Urine Bacteria Ur Culture Indicated? U Opiates 300ng/mL cut Negative Ur Oxycodone Screen Negative Urine Methadone Screen Negative Ur Barbiturates Screen Negative U Tricyclic Antidepress Negative Ur Phencyclidine Scrn Negative Ur Amphetamines Screen Negative U Methamphetamines Scrn Negative Ur MDMA Scrn (Ecstasy) Negative U Benzodiazepines Scrn Negative Urine Cocaine Screen Negative U Marijuana (THC) Screen Negative Assessment & Plan Assessment & Plan narrative: This is a 64-year-old male patient who has been in declining health the last 3 weeks and presents to the ER referred by the respiratory clinic with nausea shortness of breath ataxia/disequilibrium and falls. 1. New onset atrial fibrillation present on admission, active -the patient does not have a prior history of atrial fibrillation. He is found in atrial fibrillation upon arrival to the ER and is of unknown duration. Is mention that the patient has an appointment with Cardiology in the medical record which was canceled due to COVID-19, reason for the appointment is unclear. -at rest the patient has a rate between 100 to 120's, with activity heart rate goes up to 160s. -12 lead EKG finds atrial fibrillation with RVR at a rate of 105 with PVC, left ventricular hypertrophy, left anterior fascicular block with lateral T-wave inversion and slight ST depression. Troponin is negative x2 at 0. 013 and 0.014. BNP is elevated at 2860, will obtain 1 more troponin. -TSH obtained in the ER is elevated at 5.82, requested T4 level. Will also add a hemoglobin A1c for risk stratification. -the patient received a fluid challenge without benefit followed by Lasix 40 mg. -patient had a potassium of 4.3 and magnesium is 1.7, the patient is receiving IV magnesium 2 g and a banana bag. -will continue patient's home regimen of aspirin 81 mg daily and add Plavix 75 mg daily. -ordered metoprolol tartrate 25 mg twice daily 1st dose now. -ordered enoxaparin 1 milligram/kilogram twice daily. -ordered echocardiogram. 2. Probable CVA with left side weakness, present on admission, active -the patient reports weakness and disequilibrium for over 2 weeks. He denies complaints of headaches or visual changes and has pre-existing centering changes related to cervical and lumbar spinal trauma. NIH score is 7 as below. -patient is NPO, request speech therapy consult and evaluation. -request PT and OT to consult evaluate and treat. -ordered MRI stroke protocol. -ordered echocardiogram. 3. Acute alcohol withdrawal with chronic alcohol dependence, present on admission, active. -patient with history of alcohol dependence since age 17, currently consuming 6 beers and a 5th of whiskey per week. Last week 2 days ago. -patient tremulous in the emergency department given 0.5 mg of Ativan IV. Upon admission to the floor still CIWA scores 13 and treated per protocol with lorazepam. -CIWA protocol instituted with seizure precautions. -banana bag IV with thiamine, folate, multivitamin, and magnesium started in the emergency department infusing at 125 cc/hour. -ordered multivitamin, thiamine 100 mg and folic acid 1 mg daily daily 4. Liver cirrhosis, chronic, present on admission, active -patient with history of alcohol dependence since age 17, currently consuming 6 beers and a 5th of whiskey per week. Last week 2 days ago. -no jaundice or evidence of ascites. -patient with elevated liver functions with a total bilirubin of 2.6, AST 185, ALT 58, AST 99, albumin of 3.8, platelets 82 and INR is 1.0. -ultrasound finds diffused increased hepatic echotexture, CT of the abdomen is obtained finding subtle nodular contour of the liver suggestive of cirrhosis. -no evidence of ascites, will obtain an ammonia level. 5. Cholelithiasis without cholecystitis, present on admission, active. -patient has bilateral upper quadrant mild tenderness, with negative Rosas sign. -WBCs are 3.3 with no indication of acute infection, elevated LFTs related to #4 above, ultrasound identifies a 5 mm nonmobile stone at the gallbladder neck with positive sonographic Rosas sign. No gallbladder wall thickening or pericholestatic fluid. CT exam identifies gallbladder containing gallstones without biliary system dilation. -Dr. Alcala contacted through the emergency department for surgical consult. We appreciate his evaluation and recommendations. -will follow CBC and procalcitonin. 6. Gastroesophageal reflux with esophagitis, chronic, stable. -patient with poor appetite, nausea and vomiting with bilateral upper abdominal and epigastric pain on palpation. -patient has previously been on omeprazole which has been discontinued since August. -ordered famotidine 20 mg twice daily. 7. Acquired hypothyroidism, chronic, stable. -TSH is found to be 5.82 in the emergency department requested T4 level which is found to be 1.37. -will continue current regimen is levothyroxine 75 mcg daily. Isolation: None VTE prophylaxis: Bilateral SCDs, therapeutic enoxaparin IV fluid: Banana bag at 125 cc/hour followed by normal saline at 100 cc/hour. Diet: NPO pending speech therapy evaluation. Code status: FULL CODE, the patient is unable to clear code status at this time will proceed with full resuscitation, patient's brother Nicko Simpson is his emergency contact. The patient is admitted to the ICU for AFib with RVR of new onset, CVA and alcohol withdrawal syndrome. The patient is admitted as an inpatient with expected length of stay to be greater than 2 midnights. Critical care time: 60 minutes with greater than 50% spent time spent in direct [id number] patient evaluation. Time Spent With Patient Time with patient: 25 - 35 minutes Scores GCS [place] coma scale eye opening: Spontaneous [place] coma scale verbal response: Confused [place] coma scale motor response: Obey commands (Requiring repeated commands to produce action) [place] coma scale total score: 14 NIHSS Level of Conciousness: Not alert, but arousable by minor stim to obey, answer or respond Ask month/age: Answers both questions correctly. Open/close eyes, close hand: Performs both tasks correctly Best gaze horizontal: Normal Visual meadows: No visual loss Facial palsy: Minor paralysis, flattened nasolabial fold, asymmetry on smiling Left arm drift: Drifts down, not to bed Right arm drift: No drift for full 10 sec Left leg drift: Drifts down, not to bed Right leg drift: No drift for full 5 sec Limb ataxia: Absent Sensory on face/arms/legs: Mild to moderate sensory loss, can tell touch Best language: Mild to moderate, slurs some words Dysarthria: Mild to mod,some slurring Extinction or inattention: No abnormality Total NIH Stroke scale score: 7 CHADS-VASc Congestive heart failure: yes Hypertension: yes Age 75 years or older: no Diabetes mellitus: no Stroke, TIA, or TE: no Vascular disease: no Age 65 to 74 years: yes Sex category (female): Male CHADS-VASc Score: 3
[2020-02-17 22:56] LABS: Creatine Kinase 57 U/L (55-170)
[2020-02-17 23:08] LABS: Troponin I 0.014 ng/mL (0.01-0.034)
[2020-02-18] VITALS (43 sets, daily range): BP systolic 89–158; BP diastolic 55–113; PULSE 63–136; RESP 8–37; TEMP 35.9–36.5; O2SAT 98–100
--- NOTE | 2020-02-18 00:05 | PC.NURSE ---
Addendum entered by Monica Zavala R.N. 02/18/20 02:26: 0215 Per provider ok to dose Ativan per protocol Q 15 minutes prn, pt continues to be agitated, pulling at lines, attempting to get out of bed. Latest CIWA 13. Librium not due until 0600. Will continue to treat and monitor as ordered, until report is given to oncoming dayshift nurse. Addendum entered by Monica Zavala R.N. 02/18/20 01:49: 0150 Updated Provider on status, pt continues to pull at lines, agitated, attempting to get out of bed. CIWA of 12 with no improvement, medicated per protocol. New orders placed for libruim po 25mg. Awaiting verification by pharmacy. Will continue to monitor. Addendum entered by Monica Zavala R.N. 02/18/20 00:52: 0052 Updated Provider Jaciel Mo that pt has prolonged pauses, appears that pt might be trying to convert back to Sinus rhythm. Pt continues to pull at lines, remains agitated, most recent CIWA is 11. Attempt to reorient and redirect, bed low and locked, call light within reach, will continue to monitor. Original Note: 2046 Pt arrived via gurney, pt able to ambulate with assistance to new bed. Pt had tried to urinate in urinal in route to unit and soiled bedding and self. Bedding and gown changed, pericare provided. CIWA assessment completed, pt scored 13, medicated appropriately. Provider Jacile at bedside, new onset A-FIB, possible stroke, with CIWA precautions pt now qualifies for ICU status. Pt is also agitated and attempting to climb out of bed, provider Jaciel agrees that pt needs closer to nursing station, moved pt from 223 to 227. Pt confused, requires frequent reorientation, and redirection. Oriented to room and call light system, seizure pads placed on bed, bed low and locked, will continue to monitor.
[2020-02-18 00:18] LABS: Ammonia (NH3) < 9 umol/L (9-30)
[2020-02-18] MEDS: SODIUM CHLORIDE 0.9% 1,000 ML 100 ML IV (00:35)
[2020-02-18] MEDS: LORazepam 2 MG/ML INJ IV ×13 (00:45→19:16)
[2020-02-18] MEDS: METOPROLOL TARTRATE 5 MG/5 ML INJ IV ×3 (03:05→20:19)
[2020-02-18 05:02] LABS: Add Manual Diff / Slide Review NO; Basophils Absolute Auto 0 /uL (0-100); Basophils Percent Auto 0.6 % (0-2); Eosinophils Absolute Auto 0 /uL (0-450); Eosinophils Percent Auto 0.6 % (2-4); Hematocrit 43.4 % (41-53); Hemoglobin 15.1 g/dL (13.5-17.5); Lymphocytes Absolute Auto 1400 /uL (1100-4500); Lymphocytes Percent Auto 33.5 % (25-40); Mean Corpuscular HGB Conc 34.8 % (30-36); Mean Corpuscular Hemoglobin 35.4 PG (26-34); Mean Corpuscular Volume 101.6 fL (80-100); Monocytes Absolute Auto 400 /uL (0-900); Monocytes Percent Auto 10.8 % (3-14); Neutrophils Absolute Auto 2200 /uL (1500-7000); Neutrophils Percent Auto 54.5 % (50-75); Platelet Count 78 X10^3/uL (150-400); Red Blood Cell Count 4.27 X10^6/uL (4.5-5.9); Red Cell Distribution Width 13.9 % (11.6-14.8); White Blood Cell Count 4.1 X10^3/uL (4.5-11.0)
[2020-02-18] MEDS: DILTIAZEM 125 MG/125 ML PIGGYBACK 10 MG IV (05:10)
[2020-02-18 05:14] LABS: BUN Creatinine Ratio 10.2 (6-22); Blood Urea Nitrogen 6 mg/dL (9-20); Calcium 8.6 mg/dL (8.4-10.2); Carbon Dioxide 29 mmol/L (22-32); Chloride 99 mmol/L (98-107); Estimated Glomerular Filt Rate > 60.0 mL/min (>60); Glucose 133 mg/dL (80-110); HEMOLYSIS < 15 (0-50); Potassium 4.2 mmol/L (3.4-5.1); Sodium 133 mmol/L (137-145)
[2020-02-18 05:15] LABS: Alanine Aminotransferase 46 IU/L (<50); Albumin 3.6 g/dL (3.5-5.0); Albumin Globulin Ratio 1.2 (1.0-2.8); Alkaline Phosphatase 90 U/L (38-126); Aspartate Aminotransferase 122 IU/L (17-59); Bilirubin Conjugated 0.1 md/dL (0.0-0.3); Bilirubin Total 3.4 mg/dL (0.2-1.3); Bilirubin Unconjugated 2.6 mg/dL (0.0-1.1); Globulin 3.1 g/dL (1.7-4.1); HEMOLYSIS < 15 (0-50); Total Protein 6.7 g/dL (6.3-8.2)
[2020-02-18 05:30] LABS: Procalcitonin < 0.05 ng/mL (<0.5)
--- NOTE | 2020-02-18 05:37 | PC.NURSE ---
Addendum entered by Nelia Yates R.N. 02/18/20 14:49: CT/MRI COMPLETED BUT BOTH WITH MUCH MOVEMENT FOR THE STUDIES- CIWA SCORES FROM 5-15 DURING THIS SHIFT Addendum entered by Nelia Yates R.N. 02/18/20 14:46: PT HAS HAD A TOTAL OF 20MG IV LORAZEPAM OVER 12 HOURS- FINALLY RESTING WELL AT PRESENT- AFIB CVR RATE 75BPM - SALINE LOCKED AND HAS TAKEN SMALL AMOUNT OF PO INTAKE- BOTH INCONT/CONTINENT OF URINE- LARGE UOP FOLLOWING IV LASIX ADMINISTRATION - LUNGS REMAIN CLEAR Original Note: PT HAS REQUIRED DOSE X 2 OF 4MG LORAZEPAM TO CALM PT DOWN, HE CONTINUES TO PULL AT LINES AND COVERS AND AT STAFF- MOSTLY MUMBLES - DIFFICULT TO UNDERSTAND - A NEW IV PLACED FOR ADDITIONAL LINE- DECREASED NS FROM 100MG TO TKO PER ORDERS- ALSO STARTED DILT GTT MAINTAINING RATE OF 10MG/H AND HR HAS RESPONDING BY COMING DOWN FROM 130'S TO 80 BPM CONTINUES IN AFIB B/P HAS IMMPROVED WELL- 118/80 PRESENTLY- ONE INCONTINENT VOID . PT RESTING AT PRESENT
[2020-02-18 06:51] LABS: NT-proBNP (BNP-Adult 18+) 7030 pg/mL (<125)
[2020-02-18] MEDS: ENOXAPARIN 80 MG/0.8 ML SYRINGE 70 MG SUBCUT ×2 (07:34→21:43)
[2020-02-18] MEDS: FUROSEMIDE 40 MG/4 ML VIAL IV (07:35)
[2020-02-18] MEDS: NICOTINE 21 MG PATCH TOP (07:36)
[2020-02-18] MEDS: chlordiazePOXIDE 25 MG CAPSULE PO (07:41)
[2020-02-18] MEDS: MULTIVITAMIN 1 TABLET 1 TAB PO (07:41)
[2020-02-18] MEDS: ASPIRIN EC 81 MG TABLET PO (07:41)
[2020-02-18] MEDS: FOLIC ACID 1 MG TABLET PO (07:41)
[2020-02-18] MEDS: METOPROLOL IR 25 MG TABLET PO (07:41)
[2020-02-18] MEDS: CLOPIDOGREL 75 MG TABLET PO (07:41)
[2020-02-18] MEDS: LEVOTHYROXINE 75 MCG TABLET PO (07:42)
[2020-02-18] MEDS: THIAMINE 100 MG TABLET PO (07:42)
--- NOTE | 2020-02-18 07:49 | SLP.IPNOTE ---
Per nursing, patient not appropriate for swallow eval today. Will check on patient tomorrow.
--- NOTE | 2020-02-18 10:01 | DI.CT.S_ITS ---
PROCEDURE: CT HEAD/BRAIN WO CON INDICATIONS: possible CVA TECHNIQUE: Noncontrast 4.5 mm thick angled axial sections acquired from the foramen magnum to the vertex, with coronal and sagittal reformats. For radiation dose reduction, the following was used: automated exposure control, adjustment of mA and/or kV according to patient size. COMPARISON: [facility], CT, HEAD WITHOUT CONTRAST, 02/06/2008, 12:52. FINDINGS: Image quality: Patient motion artifact CSF spaces: Basal cisterns are patent. No extra-axial fluid collections. The ventricles are symmetric in size and shape. Brain: No intracranial bleeds or masses. There is age-related volume loss, with resultant ventricular and sulcal prominence. There are moderate to severe periventricular and deep white matter chronic small vessel ischemic changes, significantly progressed. There is intracranial internal carotid artery atherosclerosis. Dense vertebral artery atherosclerotic calcifications. Skull and face: Calvarium and visualized facial bones appear intact, without suspicious lesions. Sinuses: Left maxillary sinus mucosal thickening and patchy bilateral ethmoid mucosal thickening. Previous bilateral nasal sinus surgeries. IMPRESSION: 1. Age related volume loss and moderate to severe small vessel ischemic change. 2. No evidence acute stroke, hemorrhage, or mass. Dictated by: Prasad Spears M.D. on 02/18/2020 at 9:56 Approved by: Prasad Spears M.D. on 02/18/2020 at 10:01
[2020-02-18] MEDS: THIAMINE 500 MG in SODIUM CHLORIDE 0.9% 50 ML 220 ML IV ×2 (10:16→16:40)
--- NOTE | 2020-02-18 10:29 | OT.IP.TRT ---
Current Diagnoses Alcohol dependence with withdrawal, uncomplicated (02/17/20) Occupational Therapy Treatment Note M3 OT- IP Subjective and Pain Start: 02/18/20 10:28 Freq: Status: Active Protocol: Document 02/18/20 10:28 CGR (Rec: 02/18/20 10:29 CGR [id number]) OT- Subjective Occupational Therapy Visit Type Type Administrative Note Notes Chart reviewed and case discussed with nursing. Pt's CIWA score is to high and pt is too medicated at this time to participate in therapy. Will hold today and continue to follow.
--- NOTE | 2020-02-18 10:43 | P.PN_ITS ---
Subjective Subjective Date Patient Seen: 02/18/20 Time Patient Seen: 10:44 Interval history: Mr. Morgan Simpson is a 64-year-old male who is a current smoker and has a past medical history significant for hypothyroidism, GERD with esophagitis, and eczema who was sent in for further evaluation of progressive weakness, shortness of breath, and continued falls. He has a substantial drinking history and has been showing evidence of withdrawal receiving multiple doses of Ativan on top of his Librium. His head CT was negative this morning, with MRI currently pending. Patient is being evaluated for possible CVA, however localizing symptoms are improved at this point and may be secondary to alcohol withdrawal and/or other encephalopathy. Patient is st ill profoundly confused, alert and oriented only to self, but has no localizing signs or symptoms on exam this morning. He denies current complaints of chest pain, abdominal pain, shortness of breath, palpitations. He denies hallucinations. RVR has resolved and patient is off diltiazem infusion. Exam Vital Signs (past 8 hours): - 02/18/20 03:03 02/18/20 03:43 02/18/20 03:45 Temperature Pulse Rate 82 110 H 130 H Respiratory Rate 21 37 H 29 H Blood Pressure 134/107 H 125/87 134/107 H Pulse Oximetry 100 100 02/18/20 04:06 02/18/20 05:00 02/18/20 05:22 Temperature Pulse Rate 105 H 63 95 H Respiratory Rate 23 14 25 H Blood Pressure 127/99 H 139/102 H 148/106 H Pulse Oximetry 98 02/18/20 05:34 02/18/20 06:05 02/18/20 07:00 Temperature Pulse Rate 78 81 78 Respiratory Rate 18 18 18 Blood Pressure 118/80 109/71 116/83 Pulse Oximetry 99 98 98 02/18/20 08:06 02/18/20 09:24 02/18/20 09:28 Temperature 97.6 F Pulse Rate 75 66 Respiratory Rate 17 23 Blood Pressure 125/85 114/77 Pulse Oximetry 100 100 02/18/20 10:05 02/18/20 10:07 02/18/20 10:08 Temperature Pulse Rate 74 77 78 Respiratory Rate 25 H 8 L Blood Pressure 122/96 H 122/96 H 122/96 H Pulse Oximetry 02/18/20 10:31 Temperature Pulse Rate 78 Respiratory Rate Blood Pressure 112/82 Pulse Oximetry Oxygen Delivery Method Room Air Oxygen Flow Rate 0 Narrative Exam Narrative: GENERAL APPEARANCE: well developed, slender male appearing older than his stated age with slow responses but in no acute distress. HEENT: NCAT, no facial droop, no ptosis appreciated, PERRLA, conjunctiva clear, EOMs intact without nystagmus, no rhinorrhea, mucous membranes are moist and pink. NECK/THYROID: neck supple, no JVD, no carotid bruit, no thyromegaly, trachea midline. LYMPH NODES: no cervical or supraclavicular lymphadenopathy. SKIN: [place], warm and dry, multiple areas erythema/ecchymosis on extremities and torso, scabbed lesion 2 cm right knee, abrasions to back. HEART: Irregularly irregular rhythm, S1-S2, 2/6 systolic murmur, no rubs or gallops, brisk capillary refill, no edema LUNGS: Breath sounds are clear but diminished in all meadows without coarseness crackles or wheezing, no cough present CHEST: Symmetrical movement, no accessory muscle use, shallow tidal volume common no pain on AP and lateral compression. ABDOMEN: Soft, non-tender, no organomegaly, no flank or suprapubic tenderness, active bowel tones. BACK: Normal curvature, nontender to palpation, no pain on straight leg raise EXTREMITIES: moves all extremities, no deformities or joint effusions. NEUROLOGIC: AAO x to person after multiple doses of ativan. No tongue fasciculations or tremulousness. Slowed extremity movement but no localizing deficits. PSYCH: Flat affect, short arm monosyllabic responses to questions, delayed response to questions, requiring repeated requests occasionally to perform an action. Objective Labs Result Diagrams: 02/18/20 04:40 02/18/20 04:40 Labs: Laboratory Results - last 24 hr 02/17/20 02/17/20 02/17/20 16:25 16:25 16:25 WBC 3.3 L RBC 4.32 L Hgb 15.4 Hct 43.8 MCV 101.4 H MCH 35.7 H MCHC 35.2 RDW 13.7 Plt Count 82 L Neut % (Auto) 48.9 L Lymph % (Auto) 33.0 Hamilton % (Auto) 14.0 Eos % (Auto) 1.3 L Baso % (Auto) 2.8 H Neut # (Auto) 1600 Lymph # (Auto) 1100 Hamilton # (Auto) 500 Eos # (Auto) 0 Baso # (Auto) 100 PT 11.7 INR 1.0 APTT 31 Sodium 130 L Potassium 4.3 Chloride 96 L Carbon Dioxide 26 BUN 5 L Creatinine 0.64 L Estimated GFR > 60.0 BUN/Creatinine Ratio 7.8 Glucose 109 Lactate Uric Acid Calcium 9.1 Phosphorus Magnesium Total Bilirubin 2.6 H Conjugated Bilirubin Unconjugated Bilirubin AST 185 H ALT 58 H Alkaline Phosphatase 99 Ammonia Total Creatine Kinase 59 CK-MB (CK-2) TNP CK-MB (CK-2) Rel Index TNP Troponin I 0.013 NT-Pro-B Natriuret Pep Total Protein 7.1 Albumin 3.8 Globulin 3.3 Albumin/Globulin Ratio 1.2 Lipase 165 Procalcitonin TSH Free T4 Urine RBC Urine WBC Amorphous Sediment Urine Bacteria Ur Culture Indicated? U Opiates 300ng/mL cut Ur Oxycodone Screen Urine Methadone Screen Ur Barbiturates Screen U Tricyclic Antidepress Ur Phencyclidine Scrn Ur Amphetamines Screen U Methamphetamines Scrn Ur MDMA Scrn (Ecstasy) U Benzodiazepines Scrn Urine Cocaine Screen U Marijuana (THC) Screen 02/17/20 02/17/20 02/17/20 16:25 16:25 16:26 WBC RBC Hgb Hct MCV MCH MCHC RDW Plt Count Neut % (Auto) Lymph % (Auto) Hamilton % (Auto) Eos % (Auto) Baso % (Auto) Neut # (Auto) Lymph # (Auto) Hamilton # (Auto) Eos # (Auto) Baso # (Auto) PT INR APTT Sodium Potassium Chloride Carbon Dioxide BUN Creatinine Estimated GFR BUN/Creatinine Ratio Glucose Lactate Uric Acid Calcium Phosphorus Magnesium 1.7 Total Bilirubin Conjugated Bilirubin 0.0 Unconjugated Bilirubin AST ALT Alkaline Phosphatase Ammonia Total Creatine Kinase CK-MB (CK-2) CK-MB (CK-2) Rel Index Troponin I NT-Pro-B Natriuret Pep Total Protein Albumin Globulin Albumin/Globulin Ratio Lipase Procalcitonin TSH Free T4 1.37 Urine RBC Urine WBC Amorphous Sediment Urine Bacteria Ur Culture Indicated? U Opiates 300ng/mL cut Ur Oxycodone Screen Urine Methadone Screen Ur Barbiturates Screen U Tricyclic Antidepress Ur Phencyclidine Scrn Ur Amphetamines Screen U Methamphetamines Scrn Ur MDMA Scrn (Ecstasy) U Benzodiazepines Scrn Urine Cocaine Screen U Marijuana (THC) Screen 02/17/20 02/17/20 02/17/20 16:45 16:45 16:45 WBC RBC Hgb Hct MCV MCH MCHC RDW Plt Count Neut % (Auto) Lymph % (Auto) Hamilton % (Auto) Eos % (Auto) Baso % (Auto) Neut # (Auto) Lymph # (Auto) Hamilton # (Auto) Eos # (Auto) Baso # (Auto) PT INR APTT Sodium Potassium Chloride Carbon Dioxide BUN Creatinine Estimated GFR BUN/Creatinine Ratio Glucose Lactate Uric Acid Calcium Phosphorus Magnesium Total Bilirubin Conjugated Bilirubin Unconjugated Bilirubin AST ALT Alkaline Phosphatase Ammonia Total Creatine Kinase CK-MB (CK-2) CK-MB (CK-2) Rel Index Troponin I NT-Pro-B Natriuret Pep 2860 H Total Protein Albumin Globulin Albumin/Globulin Ratio Lipase Procalcitonin < 0.05 TSH 5.82 H Free T4 Urine RBC Urine WBC Amorphous Sediment Urine Bacteria Ur Culture Indicated? U Opiates 300ng/mL cut Ur Oxycodone Screen Urine Methadone Screen Ur Barbiturates Screen U Tricyclic Antidepress Ur Phencyclidine Scrn Ur Amphetamines Screen U Methamphetamines Scrn Ur MDMA Scrn (Ecstasy) U Benzodiazepines Scrn Urine Cocaine Screen U Marijuana (THC) Screen 02/17/20 02/17/20 02/17/20 18:40 19:35 19:35 WBC RBC Hgb Hct MCV MCH MCHC RDW Plt Count Neut % (Auto) Lymph % (Auto) Hamilton % (Auto) Eos % (Auto) Baso % (Auto) Neut # (Auto) Lymph # (Auto) Hamilton # (Auto) Eos # (Auto) Baso # (Auto) PT INR APTT Sodium Potassium Chloride Carbon Dioxide BUN Creatinine Estimated GFR BUN/Creatinine Ratio Glucose Lactate 1.8 Uric Acid Calcium Phosphorus Magnesium Total Bilirubin Conjugated Bilirubin Unconjugated Bilirubin AST ALT Alkaline Phosphatase Ammonia Total Creatine Kinase 57 CK-MB (CK-2) TNP CK-MB (CK-2) Rel Index TNP Troponin I 0.014 NT-Pro-B Natriuret Pep Total Protein Albumin Globulin Albumin/Globulin Ratio Lipase Procalcitonin TSH Free T4 Urine RBC None seen Urine WBC None seen Amorphous Sediment 1+ Urine Bacteria None seen Ur Culture Indicated? Cult not indicated U Opiates 300ng/mL cut Ur Oxycodone Screen Urine Methadone Screen Ur Barbiturates Screen U Tricyclic Antidepress Ur Phencyclidine Scrn Ur Amphetamines Screen U Methamphetamines Scrn Ur MDMA Scrn (Ecstasy) U Benzodiazepines Scrn Urine Cocaine Screen U Marijuana (THC) Screen 02/17/20 02/17/20 02/17/20 19:35 19:35 21:10 WBC RBC Hgb Hct MCV MCH MCHC RDW Plt Count Neut % (Auto) Lymph % (Auto) Hamilton % (Auto) Eos % (Auto) Baso % (Auto) Neut # (Auto) Lymph # (Auto) Hamilton # (Auto) Eos # (Auto) Baso # (Auto) PT INR APTT Sodium Potassium Chloride Carbon Dioxide BUN Creatinine Estimated GFR BUN/Creatinine Ratio Glucose Lactate Uric Acid 5.3 Calcium Phosphorus 4.8 H Magnesium Total Bilirubin Conjugated Bilirubin Unconjugated Bilirubin AST ALT Alkaline Phosphatase Ammonia Total Creatine Kinase CK-MB (CK-2) CK-MB (CK-2) Rel Index Troponin I NT-Pro-B Natriuret Pep Total Protein Albumin Globulin Albumin/Globulin Ratio Lipase Procalcitonin TSH Free T4 Urine RBC Urine WBC Amorphous Sediment Urine Bacteria Ur Culture Indicated? U Opiates 300ng/mL cut Negative Ur Oxycodone Screen Negative Urine Methadone Screen Negative Ur Barbiturates Screen Negative U Tricyclic Antidepress Negative Ur Phencyclidine Scrn Negative Ur Amphetamines Screen Negative U Methamphetamines Scrn Negative Ur MDMA Scrn (Ecstasy) Negative U Benzodiazepines Scrn Negative Urine Cocaine Screen Negative U Marijuana (THC) Screen Negative 02/17/20 02/17/20 02/18/20 22:40 23:43 04:40 WBC 4.1 L RBC 4.27 L Hgb 15.1 Hct 43.4 MCV 101.6 H MCH 35.4 H MCHC 34.8 RDW 13.9 Plt Count 78 L Neut % (Auto) 54.5 Lymph % (Auto) 33.5 Hamilton % (Auto) 10.8 Eos % (Auto) 0.6 L Baso % (Auto) 0.6 Neut # (Auto) 2200 Lymph # (Auto) 1400 Hamilton # (Auto) 400 Eos # (Auto) 0 Baso # (Auto) 0 PT INR APTT Sodium Potassium Chloride Carbon Dioxide BUN Creatinine Estimated GFR BUN/Creatinine Ratio Glucose Lactate Uric Acid Calcium Phosphorus Magnesium Total Bilirubin Conjugated Bilirubin Unconjugated Bilirubin AST ALT Alkaline Phosphatase Ammonia < 9 L Total Creatine Kinase 57 CK-MB (CK-2) TNP CK-MB (CK-2) Rel Index TNP Troponin I 0.014 NT-Pro-B Natriuret Pep Total Protein Albumin Globulin Albumin/Globulin Ratio Lipase Procalcitonin TSH Free T4 Urine RBC Urine WBC Amorphous Sediment Urine Bacteria Ur Culture Indicated? U Opiates 300ng/mL cut Ur Oxycodone Screen Urine Methadone Screen Ur Barbiturates Screen U Tricyclic Antidepress Ur Phencyclidine Scrn Ur Amphetamines Screen U Methamphetamines Scrn Ur MDMA Scrn (Ecstasy) U Benzodiazepines Scrn Urine Cocaine Screen U Marijuana (THC) Screen 02/18/20 02/18/20 02/18/20 04:40 04:40 04:40 WBC RBC Hgb Hct MCV MCH MCHC RDW Plt Count Neut % (Auto) Lymph % (Auto) Hamilton % (Auto) Eos % (Auto) Baso % (Auto) Neut # (Auto) Lymph # (Auto) Hamilton # (Auto) Eos # (Auto) Baso # (Auto) PT INR APTT Sodium 133 L Potassium 4.2 Chloride 99 Carbon Dioxide 29 BUN 6 L Creatinine 0.59 L Estimated GFR > 60.0 BUN/Creatinine Ratio 10.2 Glucose 133 H Lactate Uric Acid Calcium 8.6 Phosphorus Magnesium 2.0 Total Bilirubin 3.4 H Conjugated Bilirubin 0.1 Unconjugated Bilirubin 2.6 H AST 122 H ALT 46 Alkaline Phosphatase 90 Ammonia Total Creatine Kinase CK-MB (CK-2) CK-MB (CK-2) Rel Index Troponin I NT-Pro-B Natriuret Pep Total Protein 6.7 Albumin 3.6 Globulin 3.1 Albumin/Globulin Ratio 1.2 Lipase Procalcitonin < 0.05 TSH Free T4 Urine RBC Urine WBC Amorphous Sediment Urine Bacteria Ur Culture Indicated? U Opiates 300ng/mL cut Ur Oxycodone Screen Urine Methadone Screen Ur Barbiturates Screen U Tricyclic Antidepress Ur Phencyclidine Scrn Ur Amphetamines Screen U Methamphetamines Scrn Ur MDMA Scrn (Ecstasy) U Benzodiazepines Scrn Urine Cocaine Screen U Marijuana (THC) Screen 02/18/20 04:40 WBC RBC Hgb Hct MCV MCH MCHC RDW Plt Count Neut % (Auto) Lymph % (Auto) Hamilton % (Auto) Eos % (Auto) Baso % (Auto) Neut # (Auto) Lymph # (Auto) Hamilton # (Auto) Eos # (Auto) Baso # (Auto) PT INR APTT Sodium Potassium Chloride Carbon Dioxide BUN Creatinine Estimated GFR BUN/Creatinine Ratio Glucose Lactate Uric Acid Calcium Phosphorus Magnesium Total Bilirubin Conjugated Bilirubin Unconjugated Bilirubin AST ALT Alkaline Phosphatase Ammonia Total Creatine Kinase CK-MB (CK-2) CK-MB (CK-2) Rel Index Troponin I NT-Pro-B Natriuret Pep 7030 H Total Protein Albumin Globulin Albumin/Globulin Ratio Lipase Procalcitonin TSH Free T4 Urine RBC Urine WBC Amorphous Sediment Urine Bacteria Ur Culture Indicated? U Opiates 300ng/mL cut Ur Oxycodone Screen Urine Methadone Screen Ur Barbiturates Screen U Tricyclic Antidepress Ur Phencyclidine Scrn Ur Amphetamines Screen U Methamphetamines Scrn Ur MDMA Scrn (Ecstasy) U Benzodiazepines Scrn Urine Cocaine Screen U Marijuana (THC) Screen Assessment & Plan Assessment & Plan narrative: This is a 64-year-old male patient who has been in declining health the last 3 weeks and presents to the ER referred by the respiratory clinic with nausea shortness of breath ataxia/disequilibrium and falls, he is admitted for alcohol withdrawal, new onset atrial fibrillation, and likely alcoholic hepatitis. 1. atrial fibrillation present on admission, active, duration unknown, RVR resolved. - He is found in atrial fibrillation upon arrival to the ER and is of unknown duration. Is mention that the patient has an appointment with Cardiology in the medical record which was canceled due to COVID-19, reason for the appointment was due to afib found on EKG in clinic with atrial fibrillation in july of 2019 (first detection of afib per chart) in clinic visit. Suspect EtOH related. Unknown if afib is paroxysmal or persistent at this time. -12 lead EKG on admission finds atrial fibrillation with RVR at a rate of 105 with PVC, left ventricular hypertrophy, left anterior fascicular block with lateral T-wave inversion and slight ST depression. Troponin is negative x2 at 0. 013 and 0.014. BNP is elevated at 2860, will obtain 1 more troponin. -TSH obtained in the ER is elevated at 5.82, fT4 is normal at 1.37. -the patient received a fluid challenge without benefit followed by Lasix 40 mg IV x1. Will continue IV lasix 40 mg daily. -patient had a potassium of 4.3 and magnesium is 1.7, the patient is receiving IV magnesium 2 g and a banana bag. -will continue patient's home regimen of aspirin 81 mg daily. Will add lovenox for AC if platelets allow. -continue metoprolol 25 mg BID. -ordered enoxaparin 1 milligram/kilogram twice daily. -ordered echocardiogram which is pending. 2. Toxic metabolic encephalopathy, present on admission. -the patient reports weakness and disequilibrium for over 2 weeks. He denies complaints of headaches or visual changes and has pre-existing centering changes related to cervical and lumbar spinal trauma. NIH score was 7 on admission but feel this is unlikely due to acute CVA. Possibilities include a wernicke's encephalopathy, EtOH withdrawal with possible DTs as noted below, alcoholic or other progressive dementia. -request PT and OT to consult evaluate and treat. -ordered MRI stroke protocol which is pending, head CT ordred this AM which was negative. -ordered echocardiogram. -treat with high dose IV thiamine, will check b12 and folate levels. 3. Acute alcohol withdrawal with chronic alcohol dependence, possible DTs, present on admission, active. -patient with history of alcohol dependence since age 17, currently consuming 6 beers and a 5th of whiskey per week. Last drink was 2 days [employer]. -patient tremulous in the emergency department given 0.5 mg of Ativan IV. Librium increased from 25 mg q6 to 50 mg q6 given frequent ativan dosing. Continue to taper librium as tolerated. -CIWA protocol instituted with seizure precautions. -banana bag IV with thiamine, folate, multivitamin, and magnesium started in the emergency department infusing at 125 cc/hour. -ordered multivitamin, high dose IV thiamine replacement and folic acid 1 mg daily daily -concern for DTs given continued disorientation, but no hallucinations. Continue treatment with IV thiamine for possible wernicke's given ataxia and encephalopathy. -evidence on exam of bone marrow suppression with Low WBC and thrombocytopenia. Will order b12 and folate given macrocytosis as well. 4. Alcoholic hepatitis, present on admission, active -patient with history of alcohol dependence since age 17, currently consuming 6 beers and a 5th of whiskey per week. Last week 2 days ago. -no jaundice or evidence of ascites. -patient with elevated liver functions with a total bilirubin of 2.6, AST 185, ALT 58, AST 99, albumin of 3.8, platelets 82 and INR is 1.0. -ultrasound finds diffused increased hepatic echotexture, CT of the abdomen is obtained finding subtle nodular contour of the liver suggestive of cirrhosis. -Tbili continues to rise, but LFTs improving. Will continue to follow LFTs. 5. Cholelithiasis without cholecystitis, present on admission, active. -patient has bilateral upper quadrant mild tenderness, with negative Rosas sign. -WBCs are 3.3 with no indication of acute infection, elevated LFTs related to #4 above, ultrasound identifies a 5 mm nonmobile stone at the gallbladder neck with positive sonographic Rosas sign. No gallbladder wall thickening or perichole static fluid. CT exam identifies gallbladder containing gallstones without biliary system dilation. -Dr. Alcala contacted through the emergency department for surgical consult. We appreciate his evaluation and recommendations. No current indications of cholecystitis. -will follow CBC, LFTs. Consider MRCP if bilirubin continues to increase. 6. Gastroesophageal reflux with esophagitis, chronic, stable. -patient with poor appetite, nausea and vomiting with bilateral upper abdominal and epigastric pain on palpation. -[facility] -ordered famotidine 20 mg twice daily. 7. Acquired hypothyroidism, chronic, stable. -TSH is found to be 5.82 in the emergency department requested T4 level which is found to be 1.37. -will continue current regimen is levothyroxine 75 mcg daily. Isolation: None VTE prophylaxis: Bilateral SCDs, therapeutic enoxaparin Diet: Okay to resume heart healthy diet. Code status: FULL CODE, the patient is unable to clear code status at this time will proceed with full resuscitation, patient's brother Nicko Simpson is his emergency contact. Dispo: Remains inpatient. He may need assisted upon discharge.
--- NOTE | 2020-02-18 11:00 | DI.MRI.S_ITS ---
PATIENT NAME: CHIARA SIMPSON I. : 1955 EXAM DATE: 02/18/2020 10:47 ORD. : CONY DAVIS CC: MODALITY: MR PATIENT TYPE: In CONTRAST MEDIA: STATION ID: [id number] FLUORO TIME: This report includes an Addendum and supersedes previous reports for this exam. PROCEDURE: MR HEAD/BRAIN WO CON INDICATIONS: Disequilibrium, ataxia, history multiple strokes TECHNIQUE: Non-contrast axial T1 spin echo, axial T2 fast spin echo, sagittal and axial FLAIR, coronal T2 fast spin echo, axial gradient echo, axial diffusion and ADC through the brain. COMPARISON: [facility], CT, CT ANGIO HEAD AND NECK, 02/17/2020, 13:55. [facility], CT, CT HEAD/BRAIN WO CON, 02/17/2020, 13:20. [facility], MR, BRAIN WITHOUT CONTRAST, 10/21/2011, 9:29. FINDINGS: Image quality: Extensive patient motion artifact. Nondiagnostic study. CSF spaces: Ventricles appear symmetric in size and shape. Basal cisterns are patent. No extra-axial fluid collections. Brain: There is extensive patient motion artifact present on all sequences. Acute infarct cannot be excluded. Age-related volume loss and small vessel ischemic change is noted. Skull and face: Calvarial bone marrow is normal in signal. Orbits are normal. Sinuses: Sinuses and mastoids are clear. IMPRESSION: Extensive patient motion artifact results in a nondiagnostic study for acute infarct. Comment: Patient had been given sedation prior to the study. Patient could not tolerate the examination. Study ended when patient started exiting the MRI gantry. Dictated by: Prasad Spears M.D. on 02/18/2020 at 11:24 Approved by: Prasad Spears M.D. on 02/18/2020 at 11:29 Continued Report - Page 2 of 2 PATIENT NAME: CHIARA SIMPSON I. : 1955 EXAM DATE: 02/18/2020 10:47 ORD. : CONY DAVIS CC: MODALITY: MR PATIENT TYPE: In CONTRAST MEDIA: STATION ID: [id number] FLUORO TIME: ADDENDUM: There was a technical error, and the wrong patient's name was associated with this report. The above report corresponds to the following patient: Chiara Simpson. Arturo, the quality analyst/technical writer, has notified me of this, and Arturo states that the referring clinician, RYAN Johnson, has been notified of this name correction. Dictated by: Prasad Spears M.D. on 02/18/2020 at 12:03 Approved by: Prasad Spears M.D. on 02/18/2020 at 12:05
[2020-02-18] MEDS: FAMOTIDINE 20 MG/50 ML PIGGYBACK 200 MG IV (11:33)
[2020-02-18] MEDS: chlordiazePOXIDE 25 MG CAPSULE 50 MG PO ×2 (11:33→17:36)
--- NOTE | 2020-02-18 11:51 | PT-IP ANOTE ---
Per OT and conversation with nursing, pt's CIWA score is too high and pt is too medicated to be able to participate with therapy today. Will continue to follow.
[2020-02-18] MEDS: METOPROLOL ER 25 MG TABLET PO (13:04)
--- NOTE | 2020-02-18 14:27 | CM.DANOTE ---
DCP/Assessment: Reviewed chart. Patient is a 64yr old male admitted to [facility] with weakness and dizziness. PCP listed is Dr. Wyman. Primary payor is 1)Medicare 2)Medicaid. UNISAW OPERATOR attempted to meet with patient today. Patient currently unable to assess due to agitation and mental status. Patient with sitter at bedside and is under seizure precautions for ETOH. RN reports CIWA scores today have been between 9-15. Patient requiring IV Ativan every 1-2hrs. No contact listed on demographic sheet. Asked RN and sitter to obtain any information pertaining to contact if someone were to call or come in to check on patient. Notes report daily alcohol use and current decline in over the last 3 weeks. Patient sent to ED from respiratory clinic with complaints of SOB. P: At this time unable to do assessment for d/c planning needs. We re-attempt when patient medically appropriate. UNISAW OPERATOR following closely. ROBIN Suarez Discharge Planning/Care Management CM Discharge Assessment Start: 02/18/20 14:17 Freq: Status: Active Protocol: Document 02/18/20 14:17 KJS (Rec: 02/18/20 14:25 KJS [id number]) Discharge Planning Assessment Assigned Ticket Sorter ROBIN Suarez Contact Information None is listed Advance Directives? No History Provided By Medical Record Prior Living Arrangements Apartment/Condo Household Members none Comment Unknown at this time. Patient unable to assess due to mental status. CIWA scores are ranging from 9-15. Independent with ADL's Unknown at this time. Is patient alert and oriented? No Needs Assistance With Meal Prep Comment Per H&P patient receives Meals on Wheels 6x per week. Caregiver for Another No Comment Unknown at this time. Transportation Arrangement Unknown Whiteboard Updated in Patient Room with Yes name and ext. # of Ticket Sorter Review Status In Process Next Review Type Continued Stay Review Document 02/18/20 14:26 KJS (Rec: 02/18/20 14:27 KJS [id number]) Discharge Planning Assessment Assigned Ticket Sorter ROBIN Suarez Contact Information None is listed Advance Directives? No History Provided By Medical Record Prior Living Arrangements Apartment/Condo Household Members none Comment Unknown at this time. Patient unable to assess due to mental status. CIWA scores are ranging from 9-15. Independent with ADL's Unknown at this time. Is patient alert and oriented? No Needs Assistance With Meal Prep Comment Per H&P patient receives Meals on Wheels 6x per week. Caregiver for Another No Comment Unknown at this time. Transportation Arrangement Unknown Whiteboard Updated in Patient Room with Yes name and ext. # of Ticket Sorter Review Status In Process Next Review Type Continued Stay Review
--- NOTE | 2020-02-18 14:40 | DIET.PN ---
Dietary Progress Note Assessment: Mr. Shmuel Simpson is a 64-year-old male with past medical history significant for hypothyroidism, and GERD with esophagitis, and alcohol dependence, who was sent to the ER from the respiratory clinic with complaints of shortness of breath, fatigue and weakness with falls, and nausea and vomiting for 3 weeks. Pt reports poor appetite for several weeks. He has been receiving meals on wheels for the last 6 weeks which he states he enjoys. HT: 177.8cm WT: 66kg UBW: 84kg (08/16) % change: 21% BMI: 20.9 Labs: BUN: 6 Cr: 0.59 Gluc: 133 T Bili: 3.4 AST: 122 ProBNP: 7030 MNA: 7 Jorge: 18 PO: Tray 0% , 100ml Ensure Enlive Nutrition Diagnosis: Severe chronic illness PCM r/t psychological causes (alcohol dependence) aeb pt report energy intake <75% >1mo, GI symptoms N/V >2 weeks, BMI <21 (age>65), weight loss of 21% in 6 mo. Interventions: 1. Tips for high calorie/high protein nutrition therapy. 2. Tips increasing thiamine rich foods for improved appetite and energy. 3. ONS chocolate enlive BID until PO intake >70%. Coupons provided. Diet Order: heart healthy EER: [id number] janusz (30-35cal/kg PCM) Pro: 100g (1.5g/kg PCM) Monitoring/Evaluations: Wt, PO's, ONS acceptance
[2020-02-18] MEDS: HALOPERIDOL 5 MG/ML VIAL 2 MG IV (20:19)
--- NOTE | 2020-02-18 20:33 | PC.NURSE ---
Addendum entered by Meka Torres R.N. 02/18/20 22:59: PO metoprolol and atorvastatin scheduled for 2100 held due to patient not being alert enough to follow directions- at risk for aspiration. Notified provider, Jaciel to order metoprolol IV PRN for HR >110 sustained. Original Note: Around 1700 patient became agitated, gave 2mg Ativan. At 1730 was unable to get BP due to continued agitation. 2mg more of Ativan given. At 1815 patient was even more agitated, grabbing at wires and trying to climb out of bed. Per Dr. Peres, I gave an additional 2mg of Ativan. By 1999 patient was still agitated with HR 130-140's. DRUG SAFETY ASSOCIATE Jaciel ordered 2mg of Haldol and 5mg of IV Metoprolol. Patient is now asleep and Hr is holding in the 90's. BP 126/89, RR 18. Per Jaciel, will continue with CIWA protocol.
[2020-02-19] VITALS (46 sets, daily range): BP systolic 89–149; BP diastolic 56–95; PULSE 72–143; RESP 18–222; TEMP 35.8–36.4; O2SAT 92–100
[2020-02-19] MEDS: FAMOTIDINE 20 MG/50 ML PIGGYBACK 200 MG IV ×2 (00:19→11:17)
[2020-02-19] MEDS: SODIUM CHLORIDE 0.9% FLUSH 10 ML IV ×9 (00:20→20:06)
[2020-02-19] MEDS: THIAMINE 500 MG in SODIUM CHLORIDE 0.9% 50 ML 220 ML IV ×3 (01:04→16:00)
--- NOTE | 2020-02-19 01:27 | PC.NURSE ---
Addendum entered by Ariadna Solomon R.N. 02/19/20 06:47: Diltiazem gtt restarted at 2.5mg/hr per Hospitalist, Jaciel DAVIS. Addendum entered by Ariadna Solomon R.N. 02/19/20 06:31: Two more doses of 2mg IV Ativan and one more dose of 5mg IV metoprolol needed to decrease agitation and tachycardia, see Emar. Patient is still awake and hallucinating, but not attempting to get OOB. Addendum entered by Ariadna Solomon R.N. 02/19/20 06:16: 0430-Patient is awake, restless, agitated and hallucinating with CIWA 20 and HR sustaining >110. IV Ativan and IV metoprolol given per prn. Hospitalist informed, I mentioned that Haldol given on evening shift was effective, he suggests to continue with the Ativan. Addendum entered by Ariadna Solomon R.N. 02/19/20 03:34: 0315-Patient is awake, restless, agitated, and trying to pull at gown and lines. Assessed need to go to bathroom, he says no brief is dry. HR increasing to 130s, 2mg IV Ativan given for CIWA 10, effective after 10 minutes. Addendum entered by Ariadna Solomon R.N. 02/19/20 02:15: HR starting to increase, sustaining >110, BP 118/69, 5mg IV metoprolol given per prn. Patient roused while coughing, swallowing sputum, HOB elevated, whispers I'm fine, no other words spoken at this time. Moves slowly, no attempts to get OOB. Original Note: Wood Carver Notes-Patient sleeping when resumed care at midnight, rouses to name, makes solid eye contact, but is non-verbal and resistive during pericare and changing of brief, CIWA 3, HR increasing >120 but not sustained. Once assessment is complete and stimuli decreased, he goes back to sleep, HR also decreases, remains in A-fib. Seizure pads up, bed alarm on, 1:1 CDL DEDICATED TRUCK DRIVER sitter in room.
[2020-02-19] MEDS: METOPROLOL TARTRATE 5 MG/5 ML INJ IV ×6 (02:00→19:19)
[2020-02-19] MEDS: LORazepam 2 MG/ML INJ IV ×14 (03:13→22:06)
[2020-02-19] MEDS: DILTIAZEM 125 MG/125 ML PIGGYBACK IV (06:41)
[2020-02-19 08:04] LABS: Add Manual Diff / Slide Review NO; Basophils Absolute Auto 0 /uL (0-100); Basophils Percent Auto 0.4 % (0-2); Eosinophils Absolute Auto 100 /uL (0-450); Eosinophils Percent Auto 1.7 % (2-4); Hematocrit 43.5 % (41-53); Hemoglobin 15.3 g/dL (13.5-17.5); Lymphocytes Absolute Auto 1100 /uL (1100-4500); Lymphocytes Percent Auto 25.1 % (25-40); Mean Corpuscular HGB Conc 35.1 % (30-36); Mean Corpuscular Hemoglobin 35.6 PG (26-34); Mean Corpuscular Volume 101.7 fL (80-100); Monocytes Absolute Auto 400 /uL (0-900); Monocytes Percent Auto 8.7 % (3-14); Neutrophils Absolute Auto 2900 /uL (1500-7000); Neutrophils Percent Auto 64.1 % (50-75); Platelet Count 74 X10^3/uL (150-400); Red Blood Cell Count 4.28 X10^6/uL (4.5-5.9); Red Cell Distribution Width 13.6 % (11.6-14.8); White Blood Cell Count 4.4 X10^3/uL (4.5-11.0)
[2020-02-19] MEDS: NICOTINE 21 MG PATCH TOP (08:32)
[2020-02-19] MEDS: ENOXAPARIN 80 MG/0.8 ML SYRINGE 70 MG SUBCUT ×2 (08:33→20:51)
[2020-02-19] MEDS: FUROSEMIDE 40 MG/4 ML VIAL IV (08:33)
[2020-02-19 08:41] LABS: Alanine Aminotransferase 36 IU/L (<50); Albumin 3.4 g/dL (3.5-5.0); Albumin Globulin Ratio 1.1 (1.0-2.8); Alkaline Phosphatase 93 U/L (38-126); Aspartate Aminotransferase 71 IU/L (17-59); BUN Creatinine Ratio 14.5 (6-22); Bilirubin Total 2.2 mg/dL (0.2-1.3); Bilirubin Unconjugated 1.5 mg/dL (0.0-1.1); Blood Urea Nitrogen 9 mg/dL (9-20); Calcium 9.1 mg/dL (8.4-10.2); Carbon Dioxide 29 mmol/L (22-32); Chloride 100 mmol/L (98-107); Estimated Glomerular Filt Rate > 60.0 mL/min (>60); Globulin 3.1 g/dL (1.7-4.1); Glucose 125 mg/dL (80-110); HEMOLYSIS < 15 (0-50); Magnesium 1.7 mg/dL (1.6-2.3); Phosphorous 4.7 mg/dL (2.3-3.7); Potassium 3.6 mmol/L (3.4-5.1); Sodium 135 mmol/L (137-145); Total Protein 6.5 g/dL (6.3-8.2)
[2020-02-19 09:28] LABS: Folate 6.9 ng/mL (2.76-20.0); Vitamin B12 909 pg/mL (239-931)
--- NOTE | 2020-02-19 10:13 | PT-IP ANOTE ---
Consulted with RN who reports pt's latest CIWA score was 12. Pt not appropriate for PT evaluation at this time. Will continue to follow.
--- NOTE | 2020-02-19 12:57 | P.PN_ITS ---
Subjective Subjective Date Patient Seen: 02/19/20 Time Patient Seen: 08:15 Interval history: Mr. Morgan Simpson is a 64-year-old male who is a current smoker and has a past medical history significant for hypothyroidism, GERD with esophagitis, and eczema who was sent in for further evaluation of progressive weakness, shortness of breath, and continued falls. He has been admitted for alcohol withdrawal and difficult to control atrial fibrillation. Overnight he became agitated and required a dose of Haldol. He was also having hallucinations at that time. He has been more sleepy throughout 2 day, but when he wakes up he has persistently elevated CIWA scores. He is currently being managed for delirium tremens. His liver function has slightly improved today with his bilirubin improving to 2.2 and his transaminases are improving as well. Patient was only arousable to sternal rub and was not able to participate in a subjective exam. Exam Vital Signs (past 8 hours): - 02/19/20 04:58 02/19/20 05:25 02/19/20 05:27 Temperature Pulse Rate 133 H 134 H 132 H Respiratory Rate 26 H 32 H 26 H Blood Pressure 133/80 135/95 H 135/95 H Pulse Oximetry 97 02/19/20 05:51 02/19/20 06:47 02/19/20 07:10 Temperature 97.6 F Pulse Rate 132 H 126 H 117 H Respiratory Rate 28 H 27 H 20 Blood Pressure 135/95 H 143/95 H 114/83 Pulse Oximetry 97 92 02/19/20 07:35 02/19/20 08:00 02/19/20 08:07 Temperature Pulse Rate 109 H 83 72 Respiratory Rate 26 H Blood Pressure 128/79 118/74 118/74 Pulse Oximetry 02/19/20 08:40 02/19/20 09:20 02/19/20 09:47 Temperature Pulse Rate 83 77 81 Respiratory Rate Blood Pressure 120/72 138/77 120/85 Pulse Oximetry 02/19/20 10:10 02/19/20 10:51 02/19/20 11:06 Temperature Pulse Rate 78 84 98 H Respiratory Rate 28 H Blood Pressure 138/91 H 121/71 147/85 H Pulse Oximetry 02/19/20 12:00 02/19/20 12:18 02/19/20 12:32 Temperature 97.5 F L Pulse Rate 88 104 H 98 H Respiratory Rate 22 18 Blood Pressure 104/81 104/81 137/75 Pulse Oximetry 99 Oxygen Delivery Method Room Air Oxygen Flow Rate 0 Narrative Exam Narrative: GENERAL APPEARANCE: well developed, slender male appearing older than his stated age with slow responses but in no acute distress. HEENT: NCAT, no facial droop, no ptosis appreciated, PERRLA, conjunctiva clear, EOMs intact without nystagmus, no rhinorrhea, mucous membranes are moist and pink. NECK/THYROID: neck supple, no JVD, no carotid bruit, no thyromegaly, trachea midline. LYMPH NODES: no cervical or supraclavicular lymphadenopathy. SKIN: [place], warm and dry, multiple areas erythema/ecchymosis on extremities and torso, scabbed lesion 2 cm right knee, abrasions to back. HEART: Irregularly irregular rhythm, S1-S2, 2/6 systolic murmur, no rubs or gallops, brisk capillary refill, no edema LUNGS: Breath sounds are clear but diminished in all meadows without coarseness crackles or wheezing, no cough present CHEST: Symmetrical movement, no accessory muscle use, shallow tidal volume common no pain on AP and lateral compression. ABDOMEN: Soft, non-tender, no organomegaly, no flank or suprapubic tenderness, active bowel tones. BACK: Normal curvature, nontender to palpation, no pain on straight leg raise EXTREMITIES: moves all extremities, no deformities or joint effusions. NEUROLOGIC:Somnolent, responds to sternal rub, does not open eyes, did follow commands. No tongue fasciculations or tremulousness. Slowed extremity movement but no localizing deficits. PSYCH: unable to assess. Objective Labs Result Diagrams: 02/19/20 07:49 02/19/20 07:49 Labs: Laboratory Results - last 24 hr 02/19/20 02/19/20 02/19/20 07:49 07:49 07:49 WBC 4.4 L RBC 4.28 L Hgb 15.3 Hct 43.5 MCV 101.7 H MCH 35.6 H MCHC 35.1 RDW 13.6 Plt Count 74 L Neut % (Auto) 64.1 Lymph % (Auto) 25.1 [place] % (Auto) 8.7 Eos % (Auto) 1.7 L Baso % (Auto) 0.4 Neut # (Auto) 2900 Lymph # (Auto) 1100 [place] # (Auto) 400 Eos # (Auto) 100 Baso # (Auto) 0 Sodium 135 L Potassium 3.6 Chloride 100 Carbon Dioxide 29 BUN 9 Creatinine 0.62 L Estimated GFR > 60.0 BUN/Creatinine Ratio 14.5 Glucose 125 H Calcium 9.1 Phosphorus 4.7 H Magnesium 1.7 Total Bilirubin 2.2 H Conjugated Bilirubin 0.0 Unconjugated Bilirubin 1.5 H AST 71 H ALT 36 Alkaline Phosphatase 93 Total Protein 6.5 Albumin 3.4 L Globulin 3.1 Albumin/Globulin Ratio 1.1 Vitamin B12 909 Folate 6.9 Assessment & Plan Assessment & Plan narrative: This is a 64-year-old male patient who has been in declining health the last 3 weeks and presents to the ER referred by the respiratory clinic with nausea shortness of breath ataxia/disequilibrium and falls, he is admitted for alcohol withdrawal with delirium tremens, atrial fibrillation, and alcoholic hepatitis. 1. atrial fibrillation present on admission, active, duration unknown, RVR resolved. - He is found in atrial fibrillation upon arrival to the ER and is of unknown duration. Is mention that the patient has an appointment with Cardiology in the medical record which was canceled due to COVID-19, reason for the appointment was due to afib found on EKG in clinic with atrial fibrillation in july of 2019 (first detection of afib per chart) in clinic visit. Suspect EtOH related. Unknown if afib is paroxysmal or persistent at this time. -12 lead EKG on admission finds atrial fibrillation with RVR at a rate of 105 with PVC, left ventricular hypertrophy, left anterior fascicular block with lateral T-wave inversion and slight ST depression. Troponin is negative x2 at 0. 013 and 0.014. BNP is elevated at 2860, will obtain 1 more troponin. -TSH obtained in the ER is elevated at 5.82, fT4 is normal at 1.37. -the patient received a fluid challenge without benefit followed by Lasix 40 mg IV x1. Will continue IV lasix 40 mg daily. -patient had a potassium of 4.3 and magnesium is 1.7, the patient is receiving IV magnesium 2 g and a banana bag. -will continue patient's home regimen of aspirin 81 mg daily. Will add lovenox for AC if platelets allow. -continue metoprolol 25 mg BID. Patient was briefly on diltiazem again overnight, but was unable to tolerate due to blood pressure. Throughout the day as long as he is calm his rate is controlled -ordered enoxaparin 1 milligram/kilogram twice daily. -ordered echocardiogram which is pending, has been delayed due to scheduling availability. 2. Toxic metabolic encephalopathy, present on admission. -the patient reports weakness and disequilibrium for over 2 weeks. He denies complaints of headaches or visual changes and has pre-existing centering changes related to cervical and lumbar spinal trauma. NIH score was 7 on admission but feel this is unlikely due to acute CVA. Possibilities include a wernicke's enc ephalopathy, EtOH withdrawal with DTs as noted below, alcoholic or other progressive dementia. -request PT and OT to consult evaluate and treat when patient is more alert. -ordered MRI stroke protocol which was nondiagnostic due to patient motion, head CT was negative. -ordered echocardiogram as noted above. -treat with high dose IV thiamine, B12 and folate levels are unremarkable. 3. Acute alcohol withdrawal with chronic alcohol dependence, and DTs, present on admission, active. -patient with history of alcohol dependence since age 17, currently consuming 6 beers and a 5th of whiskey per week. Last drink was 2 days CARDIOLOGY NURSE PRACTITIONER. -patient tremulous in the emergency department given 0.5 mg of Ativan IV. Librium increased from 25 mg q6 to 50 mg q6 given frequent ativan dosing. Continue to taper librium as tolerated. -CIWA protocol instituted with seizure precautions. -banana bag IV with thiamine, folate, multivitamin, and magnesium started in the emergency department infusing at 125 cc/hour. -ordered multivitamin, high dose IV thiamine replacement and folic acid 1 mg daily daily -likely delirium tremens at this time given hallucinations overnight. Continue treatment with IV thiamine for possible wernicke's given ataxia and encephalopathy. 4. Alcoholic hepatitis, present on admission, active -patient with history of alcohol dependence since age 17, currently consuming 6 beers and a 5th of whiskey per week. Last week 2 days ago. -no jaundice or evidence of ascites. -patient with elevated liver functions with a total bilirubin of 2.6, AST 185, ALT 58, AST 99, albumin of 3.8, platelets 82 and INR is 1.0. -ultrasound finds diffused increased hepatic echotexture, CT of the abdomen is obtained finding subtle nodular contour of the liver suggestive of cirrhosis. -Tbili did rise the morning after admission, but declined today to 2.2. 5. Cholelithiasis without cholecystitis, present on admission, active. -patient has bilateral upper quadrant mild tenderness, with negative Rosas si gn. -WBCs are 3.3 with no indication of acute infection, elevated LFTs related to #4 above, ultrasound identifies a 5 mm nonmobile stone at the gallbladder neck with positive sonographic Rosas sign. No gallbladder wall thickening or pericholestatic fluid. CT exam identifies gallbladder containing gallstones without biliary system dilation. -Dr. Alcala contacted through the emergency department for surgical consult. We appreciate his evaluation and recommendations. No current indications of c holecystitis. -will follow CBC, LFTs. Consider MRCP if bilirubin rises again. 6. Gastroesophageal reflux with esophagitis, chronic, stable. -patient with poor appetite, nausea and vomiting with bilateral upper abdominal and epigastric pain on palpation. -patient has previously been on omeprazole which has been discontinued since August. -ordered famotidine 20 mg twice daily. 7. Acquired hypothyroidism, chronic, stable. -TSH is found to be 5.82 in the emergency department requested T4 level which is found to be 1.37. -will continue current regimen is levothyroxine 75 mcg daily. Isolation: None VTE prophylaxis: Bilateral SCDs, therapeutic enoxaparin Diet: Okay to resume heart healthy diet when he is more alert. Code status: FULL CODE, the patient is unable to clear code status at this time will proceed with full resuscitation, patient's brother Nicko Simpson is his emergency contact. Dispo: Remains inpatient. He may need long-term upon discharge. Timing of discharge remains unclear given progressive symptoms of alcohol withdrawal at this time.
--- NOTE | 2020-02-19 12:58 | SLP.IPNOTE ---
Per nursing, patient not appropriate for swallow eval today. Will check on patient tomorrow.
--- NOTE | 2020-02-19 13:09 | OT.IPNOTE ---
Per Nursing not ready to for OT eval today as still actively detoxing. To check on pt tomorrow.
--- NOTE | 2020-02-19 14:35 | PC.NURSE ---
Day Shift Note CIWA scores 2-14 this shift, has received a total of 8 mg IV Ativan. Does open eyes and tracks, intermittently able to answer simple questions such as are you in pain? but is difficult to understand due to delayed/mumbled speech. Restless and picking at gown/IV/cords when CIWA 12-14. One to one in place for safety. Diltiazem gtt stopped at 0830 due to HR in the 60s and BP in the 80s systolic. Afib CVR at rest with rate in the 80s, prn metoprolol IV administered x2 for HR up to the 110s this afternoon. SpO2 98-100% RA. Incontinent of urine. Seizure pads in place. Bed alarm on.
[2020-02-19] MEDS: dilTIAZem 5 MG/ML SDV IV (20:50)
--- NOTE | 2020-02-19 22:35 | PC.NURSE ---
Evening shift note: CIWA scores 11-14 , has received a total of 8 mg IV Ativan during this shift. Does open eyes and tracks, intermittently able to answer simple questions such as do you know where you are? Speech is difficult to understand due to delayed/slurred speech. Restless and picking at gown/IV/cords when CIWA 12-13. One to one in place for patient safety. Diltiazem gtt stopped at 0830 this morning, Afib CVR at rest with rate in the 80s, prn metoprolol IV administered x1 and Diltiazem prn administered x1 for HR up to 145 this evening. SpO2 98-100% RA. Incontinent of urine. Seizure pads in place. Bed alarm on, bed low and locked, will continue to monitor.
[2020-02-20] VITALS (31 sets, daily range): BP systolic 109–197; BP diastolic 75–102; PULSE 88–150; RESP 18–38; TEMP 35.8–36.6; O2SAT 97–99
[2020-02-20] MEDS: FAMOTIDINE 20 MG/50 ML PIGGYBACK 200 MG IV ×2 (00:16→11:30)
[2020-02-20] MEDS: THIAMINE 500 MG in SODIUM CHLORIDE 0.9% 50 ML 220 ML IV ×3 (00:49→16:38)
--- NOTE | 2020-02-20 00:53 | PC.NURSE ---
Addendum entered by Ariadna Solomon R.N. 02/20/20 06:07: 2mg IV Ativan given x2 for CIWA 8-10, Mg+ rider and K+ rider started as ordered. Patient incontinent once small amount of urine. Addendum entered by Ariadna Solomon R.N. 02/20/20 02:35: Patient is awake and restless, CIWA 9, 2mg IV Ativan given per protocol. 5mg IV diltiazem given for HR sustained >110. Original Note: Boat Deckhand Notes-Patient has been sleeping, snoring, RR 20s, SpO2 98% RA, occasional loose cough, swallows sputum. Remains in A-fib/flutter, rate 80s-105. BP Q1h, stable, see vital trends. IV Famotidine and Thiamine infused as scheduled. Allowing patient to sleep undisturbed at this time. 1:1 PRICING SUPERVISOR sitter in room, seizure pads on rails, SCDs on.
[2020-02-20] MEDS: LORazepam 2 MG/ML INJ IV ×10 (02:04→23:11)
[2020-02-20] MEDS: dilTIAZem 5 MG/ML SDV IV ×5 (02:19→23:30)
[2020-02-20 05:09] LABS: Hematocrit 42.4 % (41-53); Hemoglobin 14.7 g/dL (13.5-17.5); Mean Corpuscular HGB Conc 34.7 % (30-36); Mean Corpuscular Hemoglobin 35.5 PG (26-34); Mean Corpuscular Volume 102.3 fL (80-100); Platelet Count 71 X10^3/uL (150-400); Red Blood Cell Count 4.14 X10^6/uL (4.5-5.9); Red Cell Distribution Width 13.5 % (11.6-14.8); White Blood Cell Count 4.5 X10^3/uL (4.5-11.0)
[2020-02-20 05:12] LABS: Alanine Aminotransferase 33 IU/L (<50); Albumin 3.3 g/dL (3.5-5.0); Albumin Globulin Ratio 1.1 (1.0-2.8); Alkaline Phosphatase 75 U/L (38-126); Aspartate Aminotransferase 59 IU/L (17-59); BUN Creatinine Ratio 13.6 (6-22); Bilirubin Total 1.8 mg/dL (0.2-1.3); Bilirubin Unconjugated 1.3 mg/dL (0.0-1.1); Blood Urea Nitrogen 9 mg/dL (9-20); Calcium 8.6 mg/dL (8.4-10.2); Carbon Dioxide 31 mmol/L (22-32); Chloride 103 mmol/L (98-107); Estimated Glomerular Filt Rate > 60.0 mL/min (>60); Glucose 106 mg/dL (80-110); HEMOLYSIS < 15 (0-50); Magnesium 1.6 mg/dL (1.6-2.3); Phosphorous 5.8 mg/dL (2.3-3.7); Potassium 3.2 mmol/L (3.4-5.1); Sodium 138 mmol/L (137-145); Total Protein 6.3 g/dL (6.3-8.2)
[2020-02-20 05:21] LABS: Add Manual Diff / Slide Review YES
[2020-02-20] MEDS: MAGNESIUM SULFATE 2 GM/50 ML PIGGYBACK IV (05:48)
[2020-02-20] MEDS: POTASSIUM CHLORIDE 60 MEQ in SODIUM CHLORIDE 0.9% 500 ML 88.333 ML IV (05:48)
[2020-02-20 06:40] LABS: Neutrophils Absolute Manual 2250 /uL (3000-5900); Platelet Estimate Decreased on smear; Total Cells Counted 100
[2020-02-20 06:41] LABS: Macrocytosis 1+
[2020-02-20] MEDS: SODIUM CHLORIDE 0.9% 1,000 ML 21 ML IV (07:00)
[2020-02-20] MEDS: ENOXAPARIN 80 MG/0.8 ML SYRINGE 70 MG SUBCUT ×2 (08:59→20:25)
[2020-02-20] MEDS: SODIUM CHLORIDE 0.9% FLUSH 10 ML IV ×2 (08:59→23:11)
[2020-02-20] MEDS: NICOTINE 21 MG PATCH TOP (08:59)
[2020-02-20] MEDS: FUROSEMIDE 40 MG/4 ML VIAL IV (09:02)
--- NOTE | 2020-02-20 10:27 | P.PN_ITS ---
Subjective Subjective Date Patient Seen: 02/20/20 Time Patient Seen: 10:30 Interval history: Mr. Morgan Simpson is a 64-year-old male who is a current smoker and has a past medical history significant for hypothyroidism, GERD with esophagitis, and eczema who was sent in for further evaluation of progressive weakness, shortness of breath, and continued falls. He has been admitted for alcohol withdrawal and atrial fibrillation. Today he is much improved and is now oriented x2. He has been a few hours without any ativan this morning. He denies hallucinations this morning. He has not complaints of chest pain, palpitations, shortness of breath. He is still confused. States he feels weak. Exam Vital Signs (past 8 hours): - 02/20/20 02:33 02/20/20 03:20 02/20/20 04:18 Temperature 97.2 F L Pulse Rate 90 119 H 88 Respiratory Rate 20 26 H 22 Blood Pressure 133/102 H 144/102 H 124/84 Pulse Oximetry 97 02/20/20 05:37 02/20/20 06:20 02/20/20 08:00 Temperature Pulse Rate 111 H 92 H Respiratory Rate 27 H 32 H Blood Pressure 125/91 H 131/100 H 126/83 Pulse Oximetry 02/20/20 08:14 02/20/20 08:53 02/20/20 09:01 Temperature 97.4 F L Pulse Rate 89 132 H Respiratory Rate 32 H Blood Pressure 126/86 Pulse Oximetry 97 Oxygen Delivery Method Room Air Oxygen Flow Rate 0 Narrative Exam Narrative: GENERAL APPEARANCE: well developed, slender male appearing older than his stated age with slow responses but in no acute distress. HEENT: NCAT, no facial droop, no ptosis appreciated, PERRLA, conjunctiva clear, EOMs intact without nystagmus, no rhinorrhea, mucous membranes are moist and pink. NECK/THYROID: neck supple, no JVD, no carotid bruit, no thyromegaly, trachea midline. LYMPH NODES: no cervical or supraclavicular lymphadenopathy. SKIN: [place], warm and dry, multiple areas erythema/ecchymosis on extremities and torso, scabbed lesion 2 cm right knee, abrasions to back. HEART: Irregularly irregular rhythm, normal rate, S1-S2, 2/6 systolic murmur, no rubs or gallops, brisk capillary refill, no edema LUNGS: Breath sounds are clear but diminished in all meadows without coarseness crackles or wheezing, no cough present CHEST: Symmetrical movement, no accessory muscle use, shallow tidal volume common no pain on AP and lateral compression. ABDOMEN: Soft, non-tender, no organomegaly, no flank or suprapubic tenderness, active bowel tones. BACK: Normal curvature, nontender to palpation, no pain on straight leg raise EXTREMITIES: moves all extremities, no deformities or joint effusions. NEUROLOGIC: Oriented x2, falls asleep easily. No tongue fasciculations or tremulousness. Slowed extremity movement but no localizing deficits. Follows simple commands. Objective Labs Result Diagrams: 02/20/20 04:50 02/20/20 04:50 Labs: Laboratory Results - last 24 hr 02/20/20 02/20/20 04:50 04:50 WBC 4.5 RBC 4.14 L Hgb 14.7 Hct 42.4 MCV 102.3 H MCH 35.5 H MCHC 34.7 RDW 13.5 Plt Count 71 L Neut % (Auto) Not Reportable Lymph % (Auto) Not Reportable [place] % (Auto) Not Reportable Eos % (Auto) Not Reportable Baso % (Auto) Not Reportable Lymph # (Auto) Not Reportable [place] # (Auto) Not Reportable Baso # (Auto) Not Reportable Total Counted 100 Seg Neutrophils % 44.0 Band Neutrophils % 6.0 Lymphocytes % (Manual) 36.0 Monocytes % (Manual) 6.0 Eosinophils % (Manual) 8.0 H Neutrophils # (Manual) 2250 L Platelet Estimate Decreased on smear RBC Morphology See below Macrocytosis 1+ H Sodium 138 Potassium 3.2 L Chloride 103 Carbon Dioxide 31 BUN 9 Creatinine 0.66 Estimated GFR > 60.0 BUN/Creatinine Ratio 13.6 Glucose 106 Calcium 8.6 Phosphorus 5.8 H D Magnesium 1.6 Total Bilirubin 1.8 H Conjugated Bilirubin 0.0 Unconjugated Bilirubin 1.3 H AST 59 ALT 33 Alkaline Phosphatase 75 Total Protein 6.3 Albumin 3.3 L Globulin 3.0 Albumin/Globulin Ratio 1.1 Assessment & Plan Assessment & Plan narrative: This is a 64-year-old male patient who has been in declining health the last 3 weeks and presents to the ER referred by the [facility] with nausea shortness of breath ataxia/disequilibrium and falls, he is admitted for alcohol withdrawal with delirium tremens, atrial fibrillation, and alcoholic hepatitis. 1. atrial fibrillation present on admission, active, duration unknown, RVR resolved. - He is found in atrial fibrillation upon arrival to the ER and is of unknown duration. Is mention that the patient has an appointment with Cardiology in the medical record which was canceled due to COVID-19, reason for the appointment was due to afib found on EKG in clinic with atrial fibrillation in july of 2019 (first detection of afib per chart) in clinic visit. Suspect EtOH related. Unknown if afib is paroxysmal or persistent at this time. -12 lead EKG on admission finds atrial fibrillation with RVR at a rate of 105 with PVC, left ventricular hypertrophy, left anterior fascicular block with lateral T-wave inversion and slight ST depression. Troponin is negative x2 at 0. 013 and 0.014. BNP is elevated at 2860, will obtain 1 more troponin. -TSH obtained in the ER is elevated at 5.82, fT4 is normal at 1.37. -the patient received a fluid challenge without benefit followed by Lasix 40 mg IV x1. Will continue IV lasix 40 mg daily. -patient had a potassium of 4.3 and magnesium is 1.7, the patient is receiving IV magnesium 2 g and a banana bag. -will continue patient's home regimen of aspirin 81 mg daily. Will add lovenox for AC if platelets allow. -continue metoprolol 50 mg BID. Patient was briefly on diltiazem again overnight with IV pushes. Throughout the day as long as he is calm his rate is controlled. -ordered enoxaparin 1 milligram/kilogram twice daily. -ordered echocardiogram which is pending, has been delayed due to scheduling availability. This will be performed later today. Consider changing to oral diltiazem if ejection fraction is normal. 2. Toxic metabolic encephalopathy, present on admission. -the patient reports weakness and disequilibrium for over 2 weeks. He denies complaints of headaches or visual changes and has pre-existing centering changes related to cervical and lumbar spinal trauma. NIH score was 7 on admission but feel this is unlikely due to acute CVA. Possibilities include a wernicke's encephalopathy, EtOH withdrawal with DTs as noted below, alcoholic or other progressive dementia. -request PT and OT to consult evaluate and treat when patient is more alert, hopefullly tomorrow. -ordered MRI stroke protocol which was nondiagnostic due to patient motion, head CT was negative. Given improvement likely due to EtOH withdrawal / DTs, will hold on repeat MRI at this time. -ordered echocardiogram as noted above. -treat with high dose IV thiamine, B12 and folate levels are unremarkable. 3. Acute alcohol withdrawal with chronic alcohol dependence, and DTs, present on admission, active. -patient with history of alcohol dependence since age 17, currently consuming 6 beers and a 5th of whiskey per week. 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 -patient tremulous in the emergency department given 0.5 mg of Ativan IV. Librium increased from 25 mg q6 to 50 mg q6 given frequent ativan dosing. Continue to taper librium as tolerated. -CIWA protocol instituted with seizure precautions. -banana bag IV with thiamine, folate, multivitamin, and magnesium started in the emergency department infusing at 125 cc/hour. -ordered multivitamin, high dose IV thiamine replacement and folic acid 1 mg daily daily -likely delirium tremens at this time given hallucinations. Continue treatment with IV thiamine for possible wernicke's given ataxia and encephalopathy. 4. Alcoholic hepatitis, present on admission, active -patient with history of alcohol dependence since age 17, currently consuming 6 beers and a 5th of whiskey per week. Last week 2 days ago. -no jaundice or evidence of ascites. -patient with elevated liver functions with a total bilirubin of 2.6, AST 185, ALT 58, AST 99, albumin of 3.8, platelets 82 and INR is 1.0. -ultrasound finds diffused increased hepatic echotexture, CT of the abdomen is obtained finding subtle nodular contour of the liver suggestive of cirrhosis. -Tbili did rise the morning after admission, but declined today to 1.8 today. 5. Cholelithiasis without cholecystitis, present on admission, active. -patient has bilateral upper quadrant mild tenderness, with negative Rosas sign. -WBCs are 3.3 with no indication of acute infection, elevated LFTs related to #4 above, ultrasound identifies a 5 mm nonmobile stone at the gallbladder neck with positive sonographic Rosas sign. No gallbladder wall thickening or pericholestatic fluid. CT exam identifies gallbladder containing gallstones without biliary system dilation. -Dr. Alcala contacted through the emergency department for surgical consult. We appreciate his evaluation and recommendations. No current indications of cholecystitis. -will follow CBC, LFTs. Consider MRCP if bilirubin rises again. 6. Gastroesophageal reflux with esophagitis, chronic, stable. -patient with poor appetite, nausea and vomiting with bilateral upper abdominal and epigastric pain on palpation. -patient has previously been on omeprazole which has been discontinued since August. -ordered famotidine 20 mg twice daily. 7. Acquired hypothyroidism, chronic, stable. -TSH is found to be 5.82 in the emergency department requested T4 level which is found to be 1.37. -will continue current regimen is levothyroxine 75 mcg daily. Isolation: None VTE prophylaxis: Bilateral SCDs, therapeutic enoxaparin Diet: Okay to resume heart healthy diet after speech evaluation. Code status: FULL CODE, the patient is unable to clear code status at this time will proceed with full resuscitation, patient's brother Nicko Simpson is his emergency contact. Dispo: Remains inpatient. He may need correction upon discharge. Timing of discharge remains unclear given progressive symptoms of alcohol withdrawal at this time.
--- NOTE | 2020-02-20 10:50 | DI.ECHO.S_ITS ---
Echocardiogram Report + + :Name: CHIARA MIRANDA I Study Date: 02/20/2020 Height: 72 in : :[facility] Weight: 160 lb : : Gender: Male BSA: 1.9 m2 : :: 1955 Age: 64 yrs BP: 131/97 mmHg: :Reason For Study: AFIB : : Performed By: Christian Grant : :Referring: CONY SPANN : + + Interpretation Summary Left ventricular ejection fraction is estimated to be 30 +/- 5%. Inferior inferolateral apical and apical anterior hypokinesis is noted Right ventricular systolic function is mild to moderately reduced. There is moderate mitral regurgitation. Procedure: A two-dimensional transthoracic echocardiogram with color flow and Doppler was performed. The study quality was technically good. There is no prior echocardiogram noted for this patient. The subcostal views were not obtained due to patient ending the exam.. The patient was in atrial fibrillation with rapid ventricular response during the exam with a heart rate exceeding 100 bpm. The patient had a heart rate of 76-111 beats per minute. Left Ventricle: The left ventricle is normal in size. Left ventricular wall thickness is normal. Left ventricular ejection fraction is estimated to be 30 +/- 5%. There is moderate global hypokinesis of the left ventricle. Inferior inferolateral apical and apical anterior hypokinesis is noted. Right Ventricle: The right ventricle is normal size. Right ventricular systolic function is mild to moderately reduced. Atria: Both atria are mildly dilated. The interatrial septum is intact with no evidence for an atrial septal defect. Mitral Valve: The mitral valve leaflets are slightly calcified. There is moderate mitral regurgitation. Aortic Valve: The aortic valve is trileaflet. The aortic valve opens well. No aortic regurgitation is present. Tricuspid Valve: The tricuspid valve is normal in structure and function. There is a trace or physiologic amount of tricuspid regurgitation. Right ventricular systolic pressure is estimated to be 20 mmHg plus the clinically estimated CVP which cannot be estimated on this exam. Pulmonic Valve: The pulmonic valve is normal in structure and function. There is no pulmonic valvular regurgitation. Great Vessels: The aortic root is normal size. The ascending aorta is mildly enlarged. The pulmonary artery is normal size. The inferior vena cava was not visualized. Pericardium/ Pleura There is no pericardial effusion. There is no pleural effusion. MMode/2D Measurements & Calculations LVIDd: 5.3 cm LVOT diam: 2.4 cm LVIDs: 4.5 cm Ao root diam: 3.8 cm FS: 15.5 % asc Aorta Diam: 3.7 cm EPSS: 1.2 cm IVSd: 1.2 cm LVPWd: 0.97 cm LV larry. diameter/BSA (cm/m^2): 2.7 LV sys. diameter/BSA (cm/m^2): 2.3 LA dimension: 5.0 cm RA long axis: 4.8 cm LA A4 area: 26.4 cm2 RA area: 20.5 cm2 LA length (vol): 5.7 cm RA vol: 74.3 ml RA : 38.3 ml/m2 RVD1 (basal): 3.7 cm RVD2 (mid): 3.3 cm TAPSE: 0.74 cm Doppler Measurements & Calculations LVOT Max Raul: 52.3 cm/sec MV E max raul: 74.3 cm/sec LV V1 max P.1 mmHg LV V1 VTI: 9.0 cm TR max raul: 224.0 cm/sec MR PISA: 2.7 cm2 TR max P.1 mmHg MR flow rate: 100.8 cm3/sec PA V2 max: 37.8 cm/sec MR PISA radius: 0.66 cm PA V2 mean: 30.1 cm/sec PA mean P.38 mmHg PA pr(Accel): 39.6 mmHg SV(LVOT): 39.9 ml Reading Physician:02:17 PM
--- NOTE | 2020-02-20 11:37 | SLP.IPNOTE ---
Spoke with nursing @ 11:35. Pt had been improving this morning. However, has become more agitated. Was give Ativan. Nursing reported pt is not ready for eval. Will try again tomorrow.
--- NOTE | 2020-02-20 12:28 | CM.DPC ---
DCP Cont: Per MD and RN, pt seems to be clearing more this morning with CIWA between 5-8 and no Ativan given since 0500 but still has sitter that may be discontinued today if pt remains stable. PT/OT/ST to complete initial eval and recommendations today if pt still appropriate. Per RN, pt began having more agitation and required Ativan after morning MD rounds and now not medically appropriate for bedside assessment and PT/OT/ST still pending. SW spoke to pt's primary contact, his brother Nicko Simpson ([phone]) who lives in [place] and confirmed that pt resides at [facility] in [place] and lives alone and has been independent with ADL's and does not drive or use DME to ambulate but does get Meals on Wheels regularly delivered. Júnior states that pt is a retired [employer] and used to be very active with riding his bike and walking since he moved to [place] 16 years ago but Júnior has noticed over the past few months and especially since COVID quarantine started pt has mostly been homebound. Pt typically has some social interaction with a few close supportive friends but has become more withdrawn and isolated since COVID pandemic. Pt has a hx of ETOH Inpt Tx at [facility] in [place] about 10 years ago but brother unaware of any further ETOH tx since then. Pt is typically a beer drinker and generally denies a drinking problem. Pt has not completed any DPOA pwk as far as brother is aware. Plan: SW to follow closely for bedside assessment when is more medically appropriate and able to participate in discussion and for PT/OT/ST initial eval and recommendations towards determining d/c needs. ROBIN Alejandro
--- NOTE | 2020-02-20 12:30 | DIET.PN ---
Dietary Progress Note RD f/u as pt has had 0% POs for past 2 d. Per nursing pt starting to track and obey commands when not overly tired. Following daily. Assessment: Mr. Shmuel Simpson is a 64-year-old male with past medical history significant for hypothyroidism, and GERD with esophagitis, and alcohol dependence, who was sent to the ER from the respiratory clinic with complaints of shortness of breath, fatigue and weakness with falls, and nausea and vomiting for 3 weeks. Pt reports poor appetite for several weeks. He has been receiving meals on wheels for the last 6 weeks which he states he enjoys. HT: 177.8cm WT: 66kg UBW: 84kg (08/16) % change: 21% BMI: 20.9 Labs: BUN: 9 Cr: 0.59 Gluc: 106 T Bili: 1.8 Phos 5.8H AST: 122 MNA: 7 Jorge: 18 PO: Since admit: Tray 0% , 100ml Ensure Enlive, no intake for past 2d r/t somnolence Nutrition Diagnosis: Severe chronic illness PCM r/t psychological causes (alcohol dependence) aeb pt report energy intake <75% >1mo, GI symptoms N/V >2 weeks, BMI <21 (age>65), weight loss of 21% in 6 mo. Interventions: 1. Tips for high calorie/high protein nutrition therapy. 2. Tips increasing thiamine rich foods for improved appetite and energy. 3. ONS chocolate enlive BID until PO intake >70%. Coupons provided. Diet Order: heart healthy EER: [id number] janusz (30-35cal/kg PCM) Pro: 100g (1.5g/kg PCM) Monitoring/Evaluations: Wt, PO's, ONS acceptance
--- NOTE | 2020-02-20 12:46 | PT-IP ANOTE ---
checked pt and pt was able to provide some PLOF and home set up but with confusion. pt willing to get out of bed but when pt was able to get up, document imaging manager came in. Nurse stated that they are going to do an ECHO and pt has to stay in bed. checked back on pt after ~ 40 min and nurse stated that pt is getting agitated and unable to follow commands and nurse was about to give pt ativan. will f/u.
--- NOTE | 2020-02-20 13:14 | OT.IPNOTE ---
Checked with nursing to see pt for OT eval and nurse states not ready yet , therefore to check again tomorrow.
--- NOTE | 2020-02-20 13:34 | PT.IIE ---
Current Diagnoses Unspecified atrial fibrillation (02/17/20) Surgical History (Last Updated 02/17/20 @ 17:43 by RYAN Wilkinson) History of cataract removal with insertion of prosthetic lens History of nasal surgery (Resolved 1963) History of repair of hiatal hernia (Acute) Hx of hernia repair (Resolved 1995) Medical History (Last Updated 02/17/20 @ 23:00 by RYAN Johnson) Alcohol dependence (Chronic) Cataracts, bilateral (Resolved 2007) Chronic cough (Chronic 1999) COPD (chronic obstructive pulmonary disease) (Inactive) Dislocated elbow (Resolved 2000) Dislocated shoulder (Resolved 2001) Eczema (Chronic 2017) Elevated liver function tests (Inactive) Fractures (Resolved ~1963) GERD (gastroesophageal reflux disease) (Chronic) Hypothyroidism (Chronic) Impaired vision (Acute) Pulmonary nodule (Inactive ~07/2019) Physical Therapy Inpatient Evaluation/Re-Eval M1 PT/OT-IP Prior Functional Status Start: 02/18/20 12:07 Freq: NEEDED Status: Active Protocol: Document 02/20/20 10:17 AB (Rec: 02/20/20 15:17 AB [id number]) Medical Review Prior Functional Status Medical History Reviewed Yes Communication inconsistent with following directions and answering questions; has some garbled speech at times Mobility and Gait pt stated that he was independent with all mobilities and ambulation without AD but started getting weak ~ 4 weeks ago and unable to take care of self Social History Household Members none Living Arrangements Apartment/Condo Number of Floors (Floors) One Floor Number of Stairs To Enter/Railing? stated he has 4 steps to enter but cannot remember if he has rails or not Additional Social History Comment unable to obtain much PLOF and info regarding home set up with pt due to decrease cognition M2 PT-IP Current Condition Start: 02/18/20 12:07 Freq: NEEDED Status: Active Protocol: Document 02/20/20 10:17 AB (Rec: 02/20/20 15:17 AB [id number]) Physical Therapy Current Condition Current Condition Evaluation Date 02/20/20 Treatment Diagnosis metabolic encephalopathy; alcohol withdrawal; difficulty in walking Onset Date 02/17/20 Precautions Other Precautions Falls M3 PT-IP Subjective Start: 02/18/20 12:07 Freq: NEEDED Status: Active Protocol: Document 02/20/20 10:17 AB (Rec: 02/20/20 15:17 AB [id number]) Subjective Physical Therapy Visit Type Type Initial Evaluation Visit Start Time 10:17 Visit Stop Time 13:51 Total Visit Minutes 40 Notes Pt seen for split visits: 1017 -1040 and 1334 -1351. pt seen this morning and obtained PLOF and home set up and assessed strength but has to have ECHO done and got agitated afterwards. Nurse informed PT in afternoon that pt is a little better and can work with PT. Number of TODDLER CAREGIVER Visits 0 Physical Therapy Visit Comments Patient Comments pt agreeable to do PT M4 PT-IP Mobility and Gait Start: 02/18/20 12:07 Freq: NEEDED Status: Active Protocol: Document 02/20/20 10:17 AB (Rec: 02/20/20 15:17 AB [id number]) PT-Bed Mobility Assessment Supine to Sit Supine to Sit Moderate Assistance,1 Person Assistance,Head of Bed Elevated Scooting Scooting to Edge of Bed Dependent PT-Transfer Assessment Sit to and From Stand Sit to and from Stand Maximum Assistance,2 Person Assistance,Use of Upper Extremities Equipment Transfer Assistive Device Gait Belt,Front Wheeled Walker Orthotic/Prosthetic Devices or Brace: No Transfers Transfer Destination Chair Transfer Technique Stand Step Pivot Transfer Ability Level of Assist Maximum Assistance,1 Person Assistance,Use of Upper Extremities Comments Mobility Comments completed supine to sit with HOB elevated mod A and max cues. required mod A to maintain sitting balance on EOB with increase posteror lean. pt is dependent with scooting to EOB. pt completed sit to stand max A x 2 and max cues. required max A x 2 to maintain standing balance using FWW. pt presents with increase posterior lean and (+ ) tremors/shaking trunk/ LE. requires cues with all tasks. completed step transfer using FWW max A x 2-3 and max cues. required assist with weight shifting to be able to move LE . Pt rested on chair and agreed to stand up again and completed max A x 2 and max cues but unable to stand upright and has to sit back down. Pt also has A-fib and HR increases to 171 with activity. positioned pt on chair. call light and table placed within reach. Nurse is aware of pt's mobility and HR. Gait Assessment Comments Gait Comments unable at this time PT-Balance Assessment Sitting Balance and Reactions Static Sitting Balance Ability Poor Dynamic Sitting Balance Ability Poor Standing Balance and Reactions Static Standing Balance Ability Poor Dynamic Standing Balance Ability Poor Device Used FWW M5 PT-IP Objective Assessments Start: 02/18/20 12:07 Freq: NEEDED Status: Active Protocol: Document 02/20/20 10:17 AB (Rec: 02/20/20 15:17 AB [id number]) Orientation Orientation/Cognition Level of Alertness Confusional State Orientation Name Safety Awareness Decreased Safety Awareness Memory Description Short Term Impaired,Longterm Impaired Gross Range of Motion Lower Extremity ROM Assessment Within Functional Limits Strength Lower Extremity Strength Assessment Bilaterally Impaired Hip 3-/5 Knee 3+/5 Other Assessments Other Other Assessments has (+) tremor/shaking during standing M6 PT-IP Treatment Start: 02/18/20 12:07 Freq: NEEDED Status: Active Protocol: Document 02/20/20 10:17 AB (Rec: 02/20/20 15:17 AB [id number]) Physical Therapy Treatment Education Education Provided Safety M7 PT-IP Assessment and Plan Start: 02/18/20 12:07 Freq: NEEDED Status: Active Protocol: Document 02/20/20 10:17 AB (Rec: 02/20/20 15:17 AB [id number]) PT Summary Assessment and Plan Potential Rehabilitation Potential Fair Status of Condition at Evaluation Evolving Summary Impairments Pain,ROM,Strength,Balance, Coordination,Sensation,Tone, Cognition,Bed Mobility, Transfers,Gait,Activity Tolerance Assessment Summary pt requiring 2-3 person assist with mobility and has difficulty following directions. pt also has decrease activity tolerance and increase in HR to 171 with sit to stand. pt will require SNF rehab to improve strength and function. Goals Bed Mobility Goal Contact Guard Assistance Transfer Goal Contact Guard Assistance,Front Wheeled Walker Gait Goal Contact Guard Assistance,Front Wheel Walker Gait Distance 50 Days to Meet Goals 10 Frequency of Treatment Frequency Of Treatment Once a Day Treatment Plan Physical Therapy Treatment Plan Bed Mobility Training,Transfer Training,Gait Training, Therapeutic Exercise,Balance Retraining,Discharge Planning, Hot or Cold Pack,Neuromuscular Re-ed,Coordination Retraining ,Manual Therapy Recommendations To Nursing Amount of Assist Needed 2 Person Assist,Mechanical Lift Discharge Recommendations PT Discharge Recommendations SNF Rehab Transportation Needs at Discharge Wheelchair/Cabulance,Stretcher /Ambulance
--- NOTE | 2020-02-20 13:38 | OT.IP.EVAL ---
Current Diagnoses Unspecified atrial fibrillation (02/17/20) Past Medical History (Last Updated 02/17/20 @ 23:00 by RYAN Johnson) Alcohol dependence (Chronic) Cataracts, bilateral (Resolved 2007) Chronic cough (Chronic 1999) COPD (chronic obstructive pulmonary disease) (Inactive) Dislocated elbow (Resolved 2000) Dislocated shoulder (Resolved 2001) Eczema (Chronic 2017) Elevated liver function tests (Inactive) Fractures (Resolved ~1963) GERD (gastroesophageal reflux disease) (Chronic) Hypothyroidism (Chronic) Impaired vision (Acute) Pulmonary nodule (Inactive ~07/2019) Surgical History (Last Updated 02/17/20 @ 17:43 by RYAN Wilkinson) History of cataract removal with insertion of prosthetic lens History of nasal surgery (Resolved 1963) History of repair of hiatal hernia (Acute) Hx of hernia repair (Resolved 1995) Occupational Therapy Inpatient Evaluation/Re-Eval M1 PT/OT-IP Prior Functional Status Start: 02/18/20 12:07 Freq: NEEDED Status: Active Protocol: Document 02/20/20 13:38 [facility] (Rec: 02/20/20 16:57 [facility] [id number]) Medical Review Prior Functional Status Medical History Reviewed Yes Diet/Fluid Consistency NPO per nursing. Communication inconsistent with following directions and answering questions; has some garbled speech at times Mobility and Gait Per PT eval, pt stated that he was independent with all mobilities and ambulation without AD but started getting weak ~ 4 weeks ago and unable to take care of self Activities of Daily Living and IADL's Pt not able to state at the time of OT eval Social History Household Members none Living Arrangements Apartment/Condo Number of Floors (Floors) One Floor Number of Stairs To Enter/Railing? stated he has 4 steps to enter but cannot remember if he has rails or not Additional Social History Comment unable to obtain much PLOF and info regarding home set up with pt due to decrease cognition M2 OT-IP Current Condition Start: 02/18/20 10:28 Freq: Status: Active Protocol: Document 02/20/20 13:38 [facility] (Rec: 02/20/20 16:57 [facility] [id number]) Occupational Therapy Current Condition Current Condition Evaluation Date 02/20/20 Treatment Diagnosis Metabolic encephalopathy, ETOH withdrawal Diagnosis Onset Date 02/17/20 Weight Bearing Status Weight Bearing Status Weight Bear as Tolerated M3 OT- IP Subjective and Pain Start: 02/18/20 10:28 Freq: Status: Active Protocol: Document 02/20/20 13:38 [facility] (Rec: 02/20/20 16:57 [facility] [id number]) OT- Subjective Occupational Therapy Visit Type Type Initial Evaluation Visit Start Time 13:38 Visit Stop Time 13:59 Total Visit Minutes 21 Occupational Therapy Visit Comments Patient Comments Pt drowsy but able to follow simple commands. PT , nursing, nursing aid, and OT all present to assist with his mobility needs. M4 OT- IP ADL's Start: 02/18/20 10:28 Freq: Status: Active Protocol: Document 02/20/20 13:38 [facility] (Rec: 02/20/20 16:57 [facility] [id number]) OT [id number] Comments OT Self-Feeding Comments Pt NPO at this time per nursing. OT ADL-Grooming Comments OT Grooming Comments Pt able to reach out for wash cloth to wash his face after set-up. Pt given a comb and not wanting to comb his hair at this time. OT ADL-Dressing General Eval Lower Body Dressing Ability Maximum Assistance Areas Needing Assistance Socks M5 OT- IP IADL's Start: 02/18/20 10:28 Freq: Status: Active Protocol: Document 02/20/20 13:38 [facility] (Rec: 02/20/20 16:57 [facility] [id number]) OT-Instrumental Activities of Daily Living Home Safety Awareness Home Safety Comments At this time pt confused and not following directions well and would have to have someone assist him for all needs. M6 OT- IP Functional Cognition Start: 02/18/20 10:28 Freq: Status: Active Protocol: Document 02/20/20 13:38 [facility] (Rec: 02/20/20 16:57 [facility] [id number]) Cognitive Factors Limiting Selfcare Function Cognitive Ability Level of Alertness Confusional State,Drowsy Patient Orientation Name Cognitive Comments Cognitive Assessment Comments Pt very drowsy and aware that he is not thinking well. Pt has delayed responses at times . Pt needing tactile and verbal cues to assist for transfer and bed mobility needs . M7 OT- IP Mobility and Balance Start: 02/18/20 10:28 Freq: Status: Active Protocol: Document 02/20/20 13:38 [facility] (Rec: 02/20/20 16:57 [facility] [id number]) OT- Bed Mobility Assessment Scooting Scooting to Edge of Bed Maximum Assistance,2 Person Assistance OT-Transfer Assessment Sit to and From Stand Sit to and from Stand Maximum Assistance,2 Person Assistance Transfers Transfer Ability Maximum Assistance,2 Person Assistance Technique Transfer Destination Bed,Chair Transfer Technique Stand Step Pivot Devices Transfer Assistive Devices Gait Belt,Front Wheeled Walker Comments Mobility Comments MAX A X 2 to stand to FWW assist to help hold RUE in place and assist to keep upright , cues for pt to tighten his leg muscles, needing additional 3rd person to assist to move FWW. At the end of the transfer pt buckling and having to guide his hips to the recliner. At this time would be safer to nursing to use the larry lift on the pt . OT- Gait Assessment Comments Gait Ability Comments Not at this time, mainly only able to tolerate a transfer. OT- Balance Assessment Sitting Balance and Reactions Static Sitting Balance Ability Poor Dynamic Sitting Balance Ability Poor Standing Balance and Reactions Static Standing Balance Ability Poor Dynamic Standing Balance Ability Poor M8 OT- IP Objective Assessments Start: 02/18/20 10:28 Freq: Status: Active Protocol: Document 02/20/20 13:38 [facility] (Rec: 02/20/20 16:57 [facility] [id number]) OT Strength Comments Strength Comments NOt able to formally assess due to difficulty for pt to follow directions at least 3-/ 5 per assist for bed mobility and transfers. M9 OT- IP Assessment and Plan Start: 02/18/20 10:28 Freq: Status: Active Protocol: Document 02/20/20 13:38 [facility] (Rec: 02/20/20 16:57 [id number] Summary Assessment and Plan Potential Rehabilitation Potential Fair Analytic Complexity at Evaluation Low Summary OT Impairments Balance,Functional Cognition, Functional Mobility,Self- Feeding,Grooming,Dressing, Toileting,Bathing,Toilet Transfers,Shower Transfers, Activity Tolerance Progress Towards Goals Slow Progress due to Medical Issues,Slow Progress due to Activity Tolerance,Slow Progress due to Cognition Assessment Summary Pt low complexity and main barriers are steps, now dependent for most ADL's and needing 3 person assist for transfers. Pt not at baseline of living alone prior and would benefit from skilled rehab to maximize his independence for all Adl and functional mobility needs. Goals Self-Feeding Goal Independent Grooming Goal Independent Dressing Goal Independent Toileting Goal Independent Bathing Goal Independent Toilet Transfer Goal Independent Shower Transfer Goal Independent Days to Meet Goals 40 Frequency of Treatment Frequency Of Treatment Once a Day Treatment Plan OT Treatment Plan ADL Training,Functional Cognition Training,Functional Mobility,Patient/Family Education,Discharge Planning Other Treatment Recommendations and Next SLUMS , grooming Treatment Focus Discharge Recommendations OT Discharge Recommendations SNF Rehab Home Equipment Needs defer to skilled rehab Transportation Needs at Discharge Wheelchair/Cabulance
[2020-02-20] MEDS: PHENobarbital 130 MG/ML VIAL 65 MG IV (18:14)
--- NOTE | 2020-02-20 18:33 | PC.NURSE ---
[id number] Note Pt drowsy but interactive and mostly appropriate from 0700 to 1500, only requiring one dose of Ativan 2 mg during that time. Oriented to self and place and talking with staff although not consistently making sense. Pt noted to be coughing with any liquids (from mouth swab) and appeared still too drowsy to participate with speech therapy. NPO at this time. Afib CVR/RVR throughout shift, increased with any activity (up to the 150s). Diltiazem prn given x3 per OCT. Up to chair with PT/OT in the afternoon, WILLEM lifted back to bed. SpO2 upper 90s. At about 1500 pt became more confused, restless, and agitated. CIWA up to 16, pulling at gown, leads, IV, seizure pads, and linens. Unable to make needs known. Medicated with Ativan 2 mg x4 with little effect noted, HR up to 140s and BP up to the 180s systolic. Dr. Peres notified and order received for 65 mg one time dose phenobarbital which was given. Pt now has CIWA of 0, appears to be resting comfortably, HR in the 80s and BP decreased (140/94). One to one sitter present for patient safety. Bed alarm is on, seizure pads in place, and suction at bedside.
--- NOTE | 2020-02-20 21:23 | PC.NURSE ---
Addendum entered by Ariadna Solomon R.N. 02/21/20 06:37: Web Content Coordinator Note-From midnight until 0600, patient was continuously on the move in bed, restless with moderate agitation, CIWA 7-15, medicated with total of 14mg IV Ativan per CIWA protocol. Attempted to him up in high fowlers to possibly give PO meds, but he coughs on ice chips and requires sx with [place], has thick white sputum. Lungs sounds fairly clear, SpO2 >94% on RA. Was also tachycardic requiring 5mg IV Diltiazem x2 and 5mg IV metoprolol x2 per prn. 2mg Mg+ rider started this am. Original Note: Evening Note-Resumed care of patient at 1900. He is sleeping, Spo2 94-99% on RA, RR 20s, A-fib/flutter CVR/RVR 80s-110. Seizure pads up. Bed alarm on. 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
[2020-02-21] VITALS (31 sets, daily range): BP systolic 94–163; BP diastolic 61–110; PULSE 92–138; RESP 14–46; TEMP 36.2–36.7; O2SAT 92–99; BMI 20.8
[2020-02-21] MEDS: LORazepam 2 MG/ML INJ IV ×10 (00:31→11:30)
[2020-02-21] MEDS: THIAMINE 500 MG in SODIUM CHLORIDE 0.9% 50 ML 220 ML IV (00:31)
[2020-02-21] MEDS: METOPROLOL TARTRATE 5 MG/5 ML INJ IV ×6 (00:31→18:33)
[2020-02-21] MEDS: FAMOTIDINE 20 MG/50 ML PIGGYBACK 200 MG IV ×2 (01:17→11:59)
[2020-02-21] MEDS: dilTIAZem 5 MG/ML SDV IV (02:43)
[2020-02-21 02:56] LABS: Add Manual Diff / Slide Review NO; Basophils Absolute Auto 0 /uL (0-100); Basophils Percent Auto 0.3 % (0-2); Eosinophils Absolute Auto 100 /uL (0-450); Eosinophils Percent Auto 1.4 % (2-4); Hematocrit 43.5 % (41-53); Lymphocytes Absolute Auto 1800 /uL (1100-4500); Lymphocytes Percent Auto 32.5 % (25-40); Mean Corpuscular HGB Conc 34.5 % (30-36); Mean Corpuscular Hemoglobin 35.5 PG (26-34); Mean Corpuscular Volume 102.7 fL (80-100); Monocytes Absolute Auto 800 /uL (0-900); Monocytes Percent Auto 14.3 % (3-14); Neutrophils Absolute Auto 2800 /uL (1500-7000); Neutrophils Percent Auto 51.5 % (50-75); Platelet Count 78 X10^3/uL (150-400); Red Blood Cell Count 4.24 X10^6/uL (4.5-5.9); Red Cell Distribution Width 13.7 % (11.6-14.8); White Blood Cell Count 5.5 X10^3/uL (4.5-11.0)
[2020-02-21 03:06] LABS: Alanine Aminotransferase 31 IU/L (<50); Albumin 3.6 g/dL (3.5-5.0); Albumin Globulin Ratio 1.1 (1.0-2.8); Alkaline Phosphatase 81 U/L (38-126); Aspartate Aminotransferase 60 IU/L (17-59); BUN Creatinine Ratio 13.6 (6-22); Bilirubin Total 2.5 mg/dL (0.2-1.3); Bilirubin Unconjugated 1.9 mg/dL (0.0-1.1); Blood Urea Nitrogen 9 mg/dL (9-20); Calcium 8.8 mg/dL (8.4-10.2); Carbon Dioxide 27 mmol/L (22-32); Chloride 106 mmol/L (98-107); Estimated Glomerular Filt Rate > 60.0 mL/min (>60); Globulin 3.2 g/dL (1.7-4.1); Glucose 115 mg/dL (80-110); HEMOLYSIS 19 (0-50); Magnesium 1.8 mg/dL (1.6-2.3); Potassium 4.1 mmol/L (3.4-5.1); Sodium 142 mmol/L (137-145); Total Protein 6.8 g/dL (6.3-8.2)
[2020-02-21] MEDS: MAGNESIUM SULFATE 2 GM/50 ML PIGGYBACK IV (06:06)
[2020-02-21] MEDS: FUROSEMIDE 40 MG/4 ML VIAL IV (08:49)
[2020-02-21] MEDS: NICOTINE 21 MG PATCH TOP (08:50)
[2020-02-21] MEDS: ENOXAPARIN 80 MG/0.8 ML SYRINGE 70 MG SUBCUT ×2 (08:50→20:19)
[2020-02-21] MEDS: SODIUM CHLORIDE 0.9% FLUSH 10 ML IV ×2 (08:51→21:48)
--- NOTE | 2020-02-21 09:04 | PM.PN.1 ---
Subjective Subjective Date Patient Seen: 02/21/20 Time Patient Seen: 08:30 Interval history: Mr. Morgan Simpson is a 64-year-old male who is a current smoker and has a past medical history significant for hypothyroidism, GERD with esophagitis, and eczema who was sent in for further evaluation of progressive weakness, shortness of breath, and continued falls. He has been admitted for alcohol withdrawal and atrial fibrillation. Yesterday he was much improved and was alert and oriented x2 for brief period of time. However in the afternoon he became more agitated and confused, with high CIWA scores. He has not been able to tolerate much p.o. intake. He was given phenobarbital which improved his symptoms. He then required further Ativan and again phenobarbital this morning. He had an NG tube placed today and plan to start supplemental nutrition, as well as be able to provide oral medications to control his atrial fibrillation. Exam Vital Signs (past 8 hours): - 02/21/20 02:00 02/21/20 02:43 02/21/20 03:09 Temperature 97.4 F L Pulse Rate 124 H 125 H 112 H Respiratory Rate 28 H 35 H Blood Pressure 141/110 H 141/110 H 148/84 H Pulse Oximetry 95 02/21/20 03:19 02/21/20 04:00 02/21/20 04:03 Temperature Pulse Rate 136 H 107 H 126 H Respiratory Rate 31 H 24 28 H Blood Pressure 148/84 H 139/110 H 139/110 H Pulse Oximetry 02/21/20 04:56 02/21/20 05:00 02/21/20 06:00 Temperature Pulse Rate 123 H 108 H 138 H Respiratory Rate 26 H 17 14 Blood Pressure 139/110 H 140/84 137/98 H Pulse Oximetry 02/21/20 07:00 02/21/20 07:10 02/21/20 08:26 Temperature Pulse Rate 92 H 94 H 92 H Respiratory Rate 23 20 27 H Blood Pressure 122/71 122/71 139/90 Pulse Oximetry 95 02/21/20 08:30 Temperature 97.1 F L Pulse Rate Respiratory Rate Blood Pressure Pulse Oximetry Oxygen Delivery Method Room Air Oxygen Flow Rate 0 Narrative Exam Narrative: GENERAL APPEARANCE: well developed, slender male appearing older than his stated age in no acute distress. HEENT: NCAT, no facial droop, no ptosis appreciated, PERRLA, conjunctiva clear, EOMs intact without nystagmus, no rhinorrhea, mucous membranes are moist and pink. NECK/THYROID: neck supple, no JVD, no carotid bruit, no thyromegaly, trachea midline. LYMPH NODES: no cervical or supraclavicular lymphadenopathy. SKIN: [place], warm and dry, multiple areas erythema/ecchymosis on extremities and torso, scabbed lesion 2 cm right knee, abrasions to back. HEART: Irregularly irregular rhythm, tachycardic, S1-S2, 2/6 systolic murmur, no rubs or gallops, brisk capillary refill, no edema LUNGS: Breath sounds are clear but diminished in all meadows without coarseness crackles or wheezing, no cough present CHEST: Symmetrical movement, no accessory muscle use, shallow tidal volume common no pain on AP and lateral compression. ABDOMEN: Soft, non-tender, no organomegaly, no flank or suprapubic tenderness, active bowel tones. BACK: Normal curvature, nontender to palpation, no pain on straight leg raise EXTREMITIES: moves all extremities, no deformities or joint effusions. NEUROLOGIC:Somnolent, responds to sternal rub, does not open eyes, follows commands intermittently today. No tongue fasciculations or tremulousness. Slowed extremity movement but no localizing deficits. PSYCH: unable to assess. Objective Labs Result Diagrams: 02/21/20 02:50 02/21/20 02:50 Labs: Laboratory Results - last 24 hr 02/21/20 02/21/20 02:50 02:50 WBC 5.5 RBC 4.24 L Hgb 15.0 Hct 43.5 MCV 102.7 H MCH 35.5 H MCHC 34.5 RDW 13.7 Plt Count 78 L Neut % (Auto) 51.5 Lymph % (Auto) 32.5 [place] % (Auto) 14.3 H Eos % (Auto) 1.4 L Baso % (Auto) 0.3 Neut # (Auto) 2800 Lymph # (Auto) 1800 [place] # (Auto) 800 Eos # (Auto) 100 Baso # (Auto) 0 Sodium 142 Potassium 4.1 Chloride 106 Carbon Dioxide 27 BUN 9 Creatinine 0.66 Estimated GFR > 60.0 BUN/Creatinine Ratio 13.6 Glucose 115 H Calcium 8.8 Phosphorus 5.0 H Magnesium 1.8 Total Bilirubin 2.5 H Conjugated Bilirubin 0.0 Unconjugated Bilirubin 1.9 H AST 60 H ALT 31 Alkaline Phosphatase 81 Total Protein 6.8 Albumin 3.6 Globulin 3.2 Albumin/Globulin Ratio 1.1 Assessment & Plan Assessment & Plan narrative: This is a 64-year-old male patient who has been in declining health the last 3 weeks and presents to the ER referred by the respiratory clinic with nausea shortness of breath ataxia/disequilibrium and falls, he is admitted for alcohol withdrawal with delirium tremens, atrial fibrillation, and alcoholic hepatitis. 1. atrial fibrillation present on admission, active, duration unknown, RVR resolved. - He is found in atrial fibrillation upon arrival to the ER and is of unknown duration. Is mention that the patient has an appointment with Cardiology in the medical record which was canceled due to COVID-19, reason for the appointment was due to afib found on EKG in clinic with atrial fibrillation in july of 2019 (first detection of afib per chart) in clinic visit. Suspect EtOH related. Unknown if afib is paroxysmal or persistent at this time. -12 lead EKG on admission finds atrial fibrillation with RVR at a rate of 105 with PVC, left ventricular hypertrophy, left anterior fascicular block with lateral T-wave inversion and slight ST depression. Troponin is negative x2 at 0. 013 and 0.014. BNP is elevated at 2860, will obtain 1 more troponin. -TSH obtained in the ER is elevated at 5.82, fT4 is normal at 1.37. -the patient received a fluid challenge without benefit followed by Lasix 40 mg IV x1. Will continue IV lasix 40 mg daily. TTE with high-pressure is indicative of excessive volume. -continue to monitor potassium and magnesium, and keep greater than 4, and 2 respectively. -will continue patient's home regimen of aspirin 81 mg daily. -continue metoprolol IR 50 mg BID. Patient was briefly on diltiazem with IV pushes but will try and limit this given now known EF of 30%. Throughout the day as long as he is calm his rate is controlled. -ordered enoxaparin 1 milligram/kilogram twice daily. -ordered echocardiogram which showed an EF of 30% approximately which is new. This may be reduced in the setting of afib or could be related to continued EtOH use. 2. Toxic metabolic encephalopathy, present on admission. -the patient reports weakness and disequilibrium for over 2 weeks. He denies complaints of headaches or visual changes and has pre-existing centering changes related to cervical and lumbar spinal trauma. NIH score was 7 on admission but feel this is unlikely due to acute CVA. Possibilities include a wernicke's encephalopathy, EtOH withdrawal with DTs as noted below, alcoholic or other progressive dementia. -request PT and OT to consult evaluate and treat when patient is more alert, hopefullly tomorrow. -ordered MRI stroke protocol which was nondiagnostic due to patient motion, head CT was negative. Given improvement likely due to EtOH withdrawal / DTs, will hold on repeat MRI at this time. -ordered echocardiogram as noted above. -treat with high dose IV thiamine, B12 and folate levels are unremarkable. 3. Acute alcohol withdrawal with chronic alcohol dependence, and DTs, present on admission, active. -patient with history of alcohol dependence since age 17, currently consuming 6 beers and a 5th of whiskey per week. 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 -patient tremulous in the emergency department given 0.5 mg of Ativan IV. Librium increased from 25 mg q6 to 50 mg q6 given frequent ativan dosing, however this did not seem adequate given decreased p.o. intake and occasional inability to swallow. He was transition to an Ativan infusion starting today. He is needed to 65 mg boluses of phenobarbital over the past 24 hours as well. -CIWA protocol instituted with seizure precautions. -banana bag IV with thiamine, folate, multivitamin, and magnesium started in the emergency department infusing at 125 cc/hour. -ordered multivitamin, high dose IV thiamine replacement and folic acid 1 mg daily daily -likely delirium tremens at this time given hallucinations. Continue treatment with IV thiamine for possible wernicke's given ataxia and encephalopathy. 4. Alcoholic hepatitis, present on admission, active -patient with history of alcohol dependence since age 17, currently consuming 6 beers and a 5th of whiskey per week. Last week 2 days ago. -no jaundice or evidence of ascites. -patient with elevated liver functions with a total bilirubin of 2.6, AST 185, ALT 58, AST 99, albumin of 3.8, platelets 82 and INR is 1.0. LFTs have continued to improve. His bilirubin is fluctuating but is fairly stable today at 2.5. -ultrasound finds diffused increased hepatic echotexture, CT of the abdomen is obtained finding subtle nodular contour of the liver suggestive of cirrhosis. 5. Cholelithiasis without cholecystitis, present on admission, active. -patient has bilateral upper quadrant mild tenderness, with negative Rosas sign. -WBCs are 3.3 with no indication of acute infection, elevated LFTs related to #4 above, ultrasound identifies a 5 mm nonmobile stone at the gallbladder neck with positive sonographic Rosas sign. No gallbladder wall thickening or pericholestatic fluid. CT exam identifies gallbladder containing gallstones without biliary system dilation. -Dr. Alcala contacted through the emergency department for surgical consult. We appreciate his evaluation and recommendations. No current indications of cholecystitis. -will follow CBC, LFTs. Consider MRCP if bilirubin continues to rise. 6. Gastroesophageal reflux with esophagitis, chronic, stable. -patient with poor appetite, nausea and vomiting with bilateral upper abdominal and epigastric pain on palpation. -patient has previously been on omeprazole which has been discontinued since August. -ordered famotidine 20 mg twice daily. 7. Acquired hypothyroidism, chronic, stable. -TSH is found to be 5.82 in the emergency department requested T4 level which is found to be 1.37. -will continue current regimen is levothyroxine 75 mcg daily. 8. Severe chronic illness protein calorie malnutrition- - r/t psychological causes (alcohol dependence) aeb pt report energy intake <75% >1mo, GI symptoms N/V >2 weeks, BMI <21 (age>65), weight loss of 21% in 6 mo. - appreciate dietary recommendations and assessment - will likely need to start NG tube feedings today. 9. Acute heart failure with reduced ejection fraction. - as noted above, possibly tachyarrhythmia induced from atrial fibrillation. Further consider more chronic alcohol use leading to nonischemic heart failure. -continue IV Lasix as noted above. Isolation: None VTE prophylaxis: Bilateral SCDs, therapeutic enoxaparin Diet: Tube feedings until mental status improves and patient can be evaluated by speech therapy. Code status: FULL CODE, the patient is unable to clear code status at this time will proceed with full resuscitation, patient's brother Nicko Simpson is his emergency contact. Dispo: Remains inpatient. He may need prison upon discharge. Timing of discharge remains unclear given progressive symptoms of alcohol withdrawal at this time.
--- NOTE | 2020-02-21 09:26 | DI.RAD.S_ITS ---
PROCEDURE: XR CHEST 1V INDICATIONS: ngt placement TECHNIQUE: One view of the chest was acquired. COMPARISON: [facility], , XR CHEST 1V, 02/17/2020, 16:41. FINDINGS: Surgical changes and devices: There is a nasogastric tube with the tip in the stomach.. Lungs and pleura: Lungs are clear. No pleural effusions or pneumothorax. Mediastinum: Mediastinal contours appear normal. Heart size is normal. Bones and chest wall: No suspicious bony lesions. Overlying soft tissues appear unremarkable. IMPRESSION: The tip of the nasogastric tube is in the stomach. Dictated by: Frances Ha M.D. on 02/21/2020 at 10:23 Approved by: Frances Ha M.D. on 02/21/2020 at 10:27
--- NOTE | 2020-02-21 10:36 | SLP.IPNOTE ---
PAINTING MACHINE OPERATOR spoke with nursing to determine if patient was appropriate to be seen for speech therapy. Nursing reported that patient received sedation for NG tube placement this morning and appeared too drowsy to participate with speech therapy. Will re-attempt as able. - Caity Brar MS, CF-PAINTING MACHINE OPERATOR.
--- NOTE | 2020-02-21 10:48 | PT-IP ANOTE ---
checked with nurse and pt is not appropriate for PT at this time. stated that pt has been agitated and was given ativan. will f/u.
--- NOTE | 2020-02-21 11:25 | OT.IPNOTE ---
Per nursing pt not medically appropriate to be seen for therapy at this time, to check on the pt tomorrow.
[2020-02-21] MEDS: PHENobarbital 130 MG/ML VIAL 65 MG IV ×2 (11:58→16:08)
[2020-02-21] MEDS: LORazepam 20 MG in SODIUM CHLORIDE 0.9% 100 ML IV (12:36)
--- NOTE | 2020-02-21 12:49 | DIET.PN ---
Dietary Progress Note Dietary Progress Note Pt had NG tube placed to initiate EN nutrition support per hospitalist request. Pt is 3d c 0% POs and not likely to meet EERs per PO in next two days c nutrition dx of severe chronic illness PCM. Pt is at high risk for refeeding r/t hx of etoh use and 3d no POs. Recc continuous feeding of Glucerna 1.5 starting @ 20mL/h for first 12h increasing by 10-20mL q12h until reaching goal of 50mL/h as tolerated watching refeeding labs and repleting as needed (BG, phos, k+, mg). 250mL free water flushes q4h (1500mL/d) adjusting down if receiving other fluid support. Goal rate provides 911 mL fluids from formula, 1500mL from free water flushes (37mL/d), 1800kcal (28kcal/kg) and 99g PRO (1.5g/kg per PCM). - Elevate head of bed 30-45 degrees while feeding - Check gastric residuals every 4 hours when initiating feeding. May check every 6-8 hours once goal rate is achieved Assessment: Mr. Shmuel Simpson is a 64-year-old male with past medical history significant for hypothyroidism, and GERD with esophagitis, and alcohol dependence, who was sent to the ER from the respiratory clinic with complaints of shortness of breath, fatigue and weakness with falls, and nausea and vomiting for 3 weeks. Pt reports poor appetite for several weeks. He has been receiving meals on wheels for the last 6 weeks which he states he enjoys. HT: 177.8cm WT: 66kg UBW: 84kg (08/16) % change: 21% BMI: 20.8 Labs: BUN: 9 Cr: 0.66 Gluc: 115 T Bili: 2.5 Phos 5.0H AST: 60 MNA: 7 Jorge: 18 PO: Since admit: Tray 0% , 100ml Ensure Enlive, no intake for past 2d r/t somnolence Nutrition Diagnosis: Severe chronic illness PCM r/t psychological causes (alcohol dependence) aeb pt report energy intake <75% >1mo, GI symptoms N/V >2 weeks, BMI <21 (age>65), weight loss of 21% in 6 mo. Diet Order: Tube Feed EER: [id number] janusz (30-35cal/kg PCM) Pro: 100g (1.5g/kg PCM) Monitoring/Evaluations: Wt, EN tolerance
--- NOTE | 2020-02-21 14:56 | PC.NURSE ---
Day Shift Note CIWA up to 15-16, medicated with prn Ativan (8 mg total throughout morning), phenobarbital administered per MD order and Ativan gtt started at 1240 at 0.01 mg/kr/hr, titrated to 0.02 mg/kg/hr. CIWA now 0-5, occ reaching for gown and picking at lines, one to one sitter in place for safety. NG tube placed this AM for tube feeds, confirmed via CXR, pt tolerated well but has had bloody oozing from right nare/NG insertion site. Tube feeds started per dietary at 1400. Continues afib RVR in the low 100s, increases to 130-140s with agitation/movement. Metoprolol IV being given prn, given x2 this shift. SpO2 92-94% RA, coarse/moist cough, continues to require oral suction to assist with expectoration. Incontinent of urine. Seizure pads in place, suction at bedside. Bed alarm on.
--- NOTE | 2020-02-21 16:15 | PT-IP ANOTE ---
checked with nurse and pt continues to be on hold for PT this afternoon.
--- NOTE | 2020-02-21 16:33 | PC.NURSE ---
Addendum entered by Monica Zavala R.N. 02/21/20 22:17: 2100 Able to administer regular PO medication through NG tube, pt tolerated well, will continue to monitor. 2214 Hung new Ativan gtt, continuing with 0.03 mg/kg/hr to maintain CIWA of 5-6 as noted in documentation. Addendum entered by Monica Zavala R.N. 02/21/20 18:38: 1838 Gave another dose of Metoprolol for HR of 145, will continue to Monitor. Addendum entered by Monica Zavala R.N. 02/21/20 17:33: 1733 Due to pt O2 saturation decreased Ativan gtt to 0.03 mg/kg/hr, will continue to monitor. Original Note: Evening Shift Note CIWA up to 15-16, phenobarbital prn administered per MD order and Ativan gtt started during dayshift at 0.02 mg/kr/hr, titrated to 0.04 mg/kg/hr, with pm agitation. Pt continues to be reaching for gown and picking at lines, one to one sitter in place for safety. NG tube placed during dayshift for tube feeds, pt continues to have bloody oozing from right nare/NG insertion site. Tube feeds started per dietary at 1400, goal of 50ml/hr. Continues afib RVR in the 100's, increases to 130-140s with agitation/movement. Metoprolol IV being given prn, given x1 so far this shift. SpO2 92-94% RA, coarse/moist cough, continues to require oral suction to assist with expectoration of bloody drainage. Incontinent of urine. Seizure pads in place, suction at bedside. Bed alarm on, 1:1 sitter, bed low and locked, will continue to monitor.
[2020-02-21] MEDS: ATORVASTATIN 20 MG TABLET PO (20:18)
[2020-02-21] MEDS: METOPROLOL IR 25 MG TABLET 50 MG PO (20:18)
[2020-02-21] MEDS: LORazepam 20 MG in SODIUM CHLORIDE 0.9% 100 ML 10.874 ML IV (22:13)
[2020-02-22] VITALS (35 sets, daily range): BP systolic 89–140; BP diastolic 51–88; PULSE 79–128; RESP 22–95; TEMP 36.2–37.1; O2SAT 93–100
[2020-02-22] MEDS: FAMOTIDINE 20 MG/50 ML PIGGYBACK 200 MG IV ×3 (00:12→23:40)
[2020-02-22] MEDS: SODIUM CHLORIDE 0.9% 1,000 ML 21 ML IV (00:12)
[2020-02-22] MEDS: METOPROLOL TARTRATE 5 MG/5 ML INJ IV (02:40)
--- NOTE | 2020-02-22 04:00 | PC.NURSE ---
Late entry 0230 - Pt HR in 1teens to 130's. Blood pressure stable. PRN metoprolol given as ordered.
--- NOTE | 2020-02-22 04:01 | PC.NURSE ---
Addendum entered by Nicole Del Castillo R.N. 02/22/20 06:41: Pt increased drowsiness and less alert with voice. Ativan gtt decreased to 0.02 mg/kg/hr. WC Addendum entered by Nicole Del Castillo R.N. 02/22/20 04:59: Pt now resting more comfortably now. CIWA scale now at 4. Blood pressure at 90/65. Ativan gtt decreased to 0.03 mg/kg/hr. HR continues to run from 100-130's. Blood pressure now at 103/81 after recheck. Amiodarone gtt started per [facility] order. VO from [facility] no amiodarone bolus to be given. BP at 112/67 and HR running 100-120s. WCTM. Adjust amiodarone gtt at 1100 this coming AM Original Note: Pt getting more restless and fidgety. CIWA scale increased to 10. HR upto 140s non sustained. Ativan gtt increased to 0.04mg/kg/HR. Scorrt RYAN aware. WC
[2020-02-22] MEDS: AMIODARONE 360 MG/200 ML PIGGYBACK 33.3 MG IV (04:49)
[2020-02-22] MEDS: LEVOTHYROXINE 75 MCG TABLET PO (06:18)
--- NOTE | 2020-02-22 09:19 | P.PN_ITS ---
Subjective Subjective Date Patient Seen: 02/22/20 Time Patient Seen: 09:20 Interval history: Mr. Morgan Simpson is a 64-year-old male who is a current smoker and has a past medical history significant for hypothyroidism, GERD with esophagitis, and eczema who was sent in for further evaluation of progressive weakness, shortness of breath, and continued falls. He has been admitted for alcohol withdrawal and atrial fibrillation. His EF Was found to be 30%, his AFib has been uncontrolled and he has not seemingly responded to oral metoprolol , so he was started on amiodarone infusion without a bolus and his rate has somewhat improved today. He was started on an Ativan infusion for improved control of his delirium tremens, and we will continue to try and wean him off the Ativan infusion. He was not answering questions today, and still profoundly somnolent on an Ativan drip. He does arouse to voice and moans, and is able to follow some very simple commands at this time. Exam Vital Signs (past 8 hours): - 02/22/20 02:00 02/22/20 02:20 02/22/20 02:41 Temperature Pulse Rate 97 H 128 H Respiratory Rate 33 H Blood Pressure 93/61 107/74 109/64 Pulse Oximetry 94 02/22/20 03:00 02/22/20 04:00 02/22/20 04:57 Temperature 98.7 F Pulse Rate 112 H 101 H 108 H Respiratory Rate 38 H 34 H Blood Pressure 112/73 100/67 113/82 Pulse Oximetry 97 96 02/22/20 05:00 02/22/20 05:05 02/22/20 05:10 Temperature Pulse Rate 89 90 118 H Respiratory Rate 44 H 37 H 41 H Blood Pressure 112/67 97/65 108/74 Pulse Oximetry 96 95 93 02/22/20 05:25 02/22/20 05:40 02/22/20 05:55 Temperature Pulse Rate 97 H 102 H 95 H Respiratory Rate 31 H 36 H 32 H Blood Pressure 99/70 103/67 105/77 Pulse Oximetry 93 95 94 02/22/20 06:30 02/22/20 07:00 02/22/20 07:30 Temperature 98.8 F 97.4 F L Pulse Rate 93 H 94 H 85 Respiratory Rate 37 H 44 H 34 H Blood Pressure 118/77 120/70 123/70 Pulse Oximetry 96 97 96 02/22/20 08:00 02/22/20 09:00 Temperature Pulse Rate 103 H 97 H Respiratory Rate 36 H 34 H Blood Pressure 127/80 120/72 Pulse Oximetry 96 96 Oxygen Delivery Method Nasal Cannula Oxygen Flow Rate 2 Narrative Exam Narrative: GENERAL APPEARANCE: well developed, slender male appearing older than his stated age in no acute distress. HEENT: NCAT, no facial droop, no ptosis appreciated, PERRLA, conjunctiva clear, EOMs intact without nystagmus, no rhinorrhea, mucous membranes are moist and pink. NECK/THYROID: neck supple, no JVD, no carotid bruit, no thyromegaly, trachea midline. LYMPH NODES: no cervical or supraclavicular lymphadenopathy. SKIN: [place], warm and dry, multiple areas erythema/ecchymosis on extremities and torso, scabbed lesion 2 cm right knee, abrasions to back. HEART: Irregularly irregular rhythm, tachycardic, S1-S2, 2/6 systolic murmur, no rubs or gallops, brisk capillary refill, no edema LUNGS: Breath sounds are clear but diminished in all meadows without coarseness crackles or wheezing, no cough present CHEST: Symmetrical movement, no accessory muscle use, shallow tidal volume common no pain on AP and lateral compression. ABDOMEN: Soft, non-tender, no organomegaly, no flank or suprapubic tenderness, active bowel tones. BACK: Normal curvature, nontender to palpation, no pain on straight leg raise EXTREMITIES: moves all extremities, no deformities or joint effusions. NEUROLOGIC:Somnolent, responds to sternal rub, does not open eyes, follows commands intermittently today. No tongue fasciculations or tremulousness. Slowed extremity movement but no localizing deficits. PSYCH: unable to assess. Objective Labs Result Diagrams: 02/21/20 02:50 02/22/20 09:50 Assessment & Plan Assessment & Plan narrative: This is a 64-year-old male patient who has been in declining health the last 3 weeks and presents to the ER referred by the respiratory clinic with nausea shortness of breath ataxia/disequilibrium and falls, he is admitted for alcohol withdrawal with delirium tremens, atrial fibrillation, and alcoholic hepatitis. 1. atrial fibrillation present on admission, active, duration unknown, RVR resolved. - He is found in atrial fibrillation upon arrival to the ER and is of unknown duration. Is mentioned that the patient has an appointment with Cardiology in the medical record which was canceled due to COVID-19, reason for the appointment was due to afib found on EKG in clinic with atrial fibrillation in july of 2019 (first detection of afib per chart) in clinic visit. Suspect EtOH related. Unknown if afib is paroxysmal or persistent at this time. -12 lead EKG on admission finds atrial fibrillation with RVR at a rate of 105 with PVC, left ventricular hypertrophy, left anterior fascicular block with lateral T-wave inversion and slight ST depression. Troponin is negative x2 at 0. 013 and 0.014. BNP is elevated at 2860. -TSH obtained in the ER is elevated at 5.82, fT4 is normal at 1.37. -the patient received a fluid challenge without benefit followed by Lasix 40 mg IV x1. Continued lasix 40 mg daily but clinically appears euvolemic to slightly dry and was held today. TTE is indicative of excessive volume however this was a few days ago now. -continue to monitor potassium and magnesium, and keep greater than 4, and 2 respectively. -will continue patient's home regimen of aspirin 81 mg daily. -continue metoprolol IR 50 mg, but will up to TID this evening. Patient was briefly on diltiazem with IV pushes but will try and limit this given now known EF of 30%.Rate is worse when patient is agitated. However for further control added amiodarone, did not give initial bolus but will load with IV and start orals tomorrow with 200 mg daily. May not need to continue if improved on increased metoprolol. Continue to monitor liver function daily. -ordered enoxaparin 1 milligram/kilogram twice daily. -ordered echocardiogram which showed an EF of 30% approximately which is new for the patient. This may be reduced in the setting of afib or could be related to continued EtOH use. 2. Toxic metabolic encephalopathy, present on admission. -the patient reports weakness and disequilibrium for over 2 weeks. He denies complaints of headaches or visual changes and has pre-existing centering changes related to cervical and lumbar spinal trauma. NIH score was 7 on admission but feel this is unlikely due to acute CVA. Possibilities include a wernicke's encephalopathy, EtOH withdrawal with DTs as noted below, alcoholic or other progressive dementia. -request PT and OT to consult evaluate and treat when patient is more alert, hopefullly tomorrow. -ordered MRI stroke protocol which was nondiagnostic due to patient motion, head CT was negative. Given improvement likely due to EtOH withdrawal / DTs, will hold on repeat MRI at this time. -ordered echocardiogram as noted above. -treat with high dose IV thiamine, B12 and folate levels are unremarkable. -management as noted below re: DTs. 3. Acute alcohol withdrawal with chronic alcohol dependence, and DTs, present on admission, active. -patient with history of alcohol dependence since age 17, currently consuming 6 beers and a 5th of whiskey per week. Last drink was 2 days [employer]PRESENT[employer]IVE. -patient tremulous in the emergency department given 0.5 mg of Ativan IV. Librium increased from 25 mg q6 to 50 mg q6 given frequent ativan dosing, however this did not seem adequate given decreased p.o. intake and occasional inability to swallow. He was transitioned to an Ativan infusion starting yesterday in the hopes that this can be slightly more controlled and will reduce the ups and downs of frequent ativan dosing. -CIWA protocol instituted with seizure precautions. -banana bag IV with thiamine, folate, multivitamin, and magnesium started in the emergency department. -ordered multivitamin, high dose IV thiamine replacement and folic acid 1 mg daily daily -likely delirium tremens at this time given hallucinations. Continue treatment with IV thiamine for possible wernicke's given ataxia and encephalopathy. -per the patient's brother he has increased his EtOH consumption from only beers with friends to beer and hard liquor over the past few months and has been drinking alone. He was previously highly functional but since this increase has been forgetting to return phone calls and has been more angered. Does think he may have some congitive issues but generally is very intelligent at baseline. Consider baseline EtOH dementia as well however unclear. 4. Alcoholic hepatitis, present on admission, active -patient with history of alcohol dependence since age 17, currently consuming 6 beers and a 5th of whiskey per week. Last week 2 days ago. -no jaundice or evidence of ascites. -patient with elevated liver functions with a total bilirubin of 2.6, AST 185, ALT 58, AST 99, albumin of 3.8, platelets 82 and INR is 1.0. LFTs have continued to improve. His bilirubin is fluctuating but is fairly stable today at 2.5. -ultrasound finds diffused increased hepatic echotexture, CT of the abdomen is obtained finding subtle nodular contour of the liver suggestive of cirrhosis. 5. Cholelithiasis without cholecystitis, present on admission, active. -patient has bilateral upper quadrant mild tenderness, with negative Rosas sign. -WBCs are 3.3 with no indication of acute infection, elevated LFTs related to #4 above, ultrasound identifies a 5 mm nonmobile stone at the gallbladder neck with positive sonographic Rosas sign. No gallbladder wall thickening or pericholestatic fluid. CT exam identifies gallbladder containing gallstones without biliary system dilation. -Dr. Alcala contacted through the emergency department for surgical consult. We appreciate his evaluation and recommendations. No current indications of cholecystitis. -will follow CBC, LFTs. Consider MRCP if bilirubin continues to rise. 6. Gastroesophageal reflux with esophagitis, chronic, stable. -patient with poor appetite, nausea and vomiting with bilateral upper abdominal and epigastric pain on palpation. -patient has previously been on omeprazole which has been discontinued since August. -ordered famotidine 20 mg twice daily. 7. Acquired hypothyroidism, chronic, stable. -TSH is found to be 5.82 in the emergency department requested T4 level which is found to be 1.37. -will continue current regimen is levothyroxine 75 mcg daily. 8. Severe chronic illness protein calorie malnutrition- - r/t psychological causes (alcohol dependence) aeb pt report energy intake <75% >1mo, GI symptoms N/V >2 weeks, BMI <21 (age>65), weight loss of 21% in 6 mo. - appreciate dietary recommendations and assessment - have started feedings via NG tube. - reconsult speech when able to possibly tolerate a diet. 9. Acute heart failure with reduced ejection fraction. - as noted above, possibly tachyarrhythmia induced from atrial fibrillation. Further consider more chronic alcohol use leading to nonischemic heart failure. -IV lasix was continued but stopped today. Continue to reassess daily. Isolation: None VTE prophylaxis: Bilateral SCDs, therapeutic enoxaparin for afib. Diet: Tube feedings until mental status improves and patient can be evaluated by speech therapy. Code status: FULL CODE, the patient is unable to clear code status at this time will proceed with full resuscitation, patient's brother Nicko Simpson is his emergency contact. Dispo: Remains inpatient. He may need care home upon discharge. Timing of discharge remains unclear given progressive symptoms of alcohol withdrawal and DTs at this time.
[2020-02-22] MEDS: METOPROLOL IR 25 MG TABLET 50 MG PO ×2 (10:00→21:47)
[2020-02-22 10:27] LABS: Alanine Aminotransferase 24 IU/L (<50); Albumin 3.2 g/dL (3.5-5.0); Alkaline Phosphatase 90 U/L (38-126); Aspartate Aminotransferase 46 IU/L (17-59); BUN Creatinine Ratio 21.8 (6-22); Bilirubin Total 1.7 mg/dL (0.2-1.3); Bilirubin Unconjugated 1.1 mg/dL (0.0-1.1); Blood Urea Nitrogen 12 mg/dL (9-20); Calcium 8.4 mg/dL (8.4-10.2); Carbon Dioxide 31 mmol/L (22-32); Chloride 105 mmol/L (98-107); Estimated Glomerular Filt Rate > 60.0 mL/min (>60); Globulin 3.2 g/dL (1.7-4.1); Glucose 166 mg/dL (80-110); HEMOLYSIS < 15 (0-50); Magnesium 1.9 mg/dL (1.6-2.3); Phosphorous 3.4 mg/dL (2.3-3.7); Potassium 3.2 mmol/L (3.4-5.1); Sodium 139 mmol/L (137-145); Total Protein 6.4 g/dL (6.3-8.2)
--- NOTE | 2020-02-22 10:35 | DIET.PN ---
Dietary Progress Note Dietary Progress Note RD f/u to assess EN tolerance. Pt tolerating EN running @ 30mL/h, refeeding labs drawn this morning potassium dropped from 4.1 to 3.2 L, phosphorus dropped from 5.0 to 3.4 WNL, BG up to 166 H, and magnesium steady from 1.8 to 1.9 WNL. Pt likely experiencing some refeeding r/t chronic malnutrition from etoh use, 21% wt loss in 6 mo, and 3d no POs prior to placing NGT. Recc continued watch of refeeding labs and maintaining 30mL/h rate for next 8h before advancing to 40mL/hr. Assessment: Mr. Shmuel Simpson is a 64-year-old male with past medical history significant for hypothyroidism, and GERD with esophagitis, and alcohol dependence, who was sent to the ER from the respiratory clinic with complaints of shortness of breath, fatigue and weakness with falls, and nausea and vomiting for 3 weeks. Pt reports poor appetite for several weeks. He has been receiving meals on wheels for the last 6 weeks which he states he enjoys. HT: 177.8cm WT: 65.5kg UBW: 84kg (08/16) % change: 21% BMI: 20.7 MNA: 7 Jorge: 18 Nutrition Diagnosis: Severe chronic illness PCM r/t psychological causes (alcohol dependence) aeb pt report energy intake <75% >1mo, GI symptoms N/V >2 weeks, BMI <21 (age>65), weight loss of 21% in 6 mo. Diet Order: Tube Feed EER: [id number] janusz (30-35cal/kg PCM) Pro: 100g (1.5g/kg PCM) Monitoring/Evaluations: Wt, EN tolerance
[2020-02-22] MEDS: MULTIVITAMIN 1 TABLET 1 TAB PO (10:36)
[2020-02-22] MEDS: ENOXAPARIN 80 MG/0.8 ML SYRINGE 70 MG SUBCUT ×2 (10:36→21:47)
[2020-02-22] MEDS: FOLIC ACID 1 MG TABLET PO (10:39)
[2020-02-22] MEDS: NICOTINE 21 MG PATCH TOP (10:40)
[2020-02-22] MEDS: LORazepam 20 MG in SODIUM CHLORIDE 0.9% 100 ML 7.249 ML IV (10:44)
[2020-02-22] MEDS: AMIODARONE 360 MG/200 ML PIGGYBACK 11 MG IV (10:51)
[2020-02-22] MEDS: THIAMINE 200 MG in SODIUM CHLORIDE 0.9% 50 ML 208 ML IV (11:00)
--- NOTE | 2020-02-22 11:15 | SLP.IPNOTE ---
WHEEL FILLER spoke with nursing to determine if patient was appropriate to be seen for speech therapy. Nursing reported that patient was not appropriate to participate in speech therapy (e.g., too drowsy from sedation). -Caity Brar MS, CF-WHEEL FILLER
--- NOTE | 2020-02-22 11:40 | PT-IP ANOTE ---
Per RN, pt not appropriate for physical therapy today. Discussed w/ Dr. Peres and RN, PT will d/c pt from therapy services and will reorder when pt is appropriate.
--- NOTE | 2020-02-22 12:08 | OT.IP.TRT ---
Current Diagnoses Weakness (02/17/20) Occupational Therapy Treatment Note M2 OT-IP Current Condition Start: 02/18/20 10:28 Freq: Status: Active Protocol: Document 02/20/20 13:38 [facility] (Rec: 02/20/20 16:57 [facility] [id number]) Occupational Therapy Current Condition Current Condition Evaluation Date 02/20/20 Treatment Diagnosis Metabolic encephalopathy, ETOH withdrawl Diagnosis Onset Date 02/17/20 Weight Bearing Status Weight Bearing Status Weight Bear as Tolerated M3 OT- IP Subjective and Pain Start: 02/18/20 10:28 Freq: Status: Active Protocol: Document 02/22/20 12:07 [facility] (Rec: 02/22/20 12:08 [facility] [email or web address]) OT- Subjective Occupational Therapy Visit Type Type Administrative Note Notes Discussed case with nursing. Pt is too medicated at this time to effectively participate in therapy. Will hold today and continue to follow.
--- NOTE | 2020-02-22 13:15 | PC.NURSE ---
Addendum entered by Katina Allison R.N. 02/22/20 15:17: Pt has had one unmeasured void, brief in place and bladder scanned 260mls. [facility] New tube feeding set up. Addendum entered by Katina Allison R.N. 02/22/20 15:09: Add: Amiodoerone running @ 16mls/hr. Addendum entered by Katina Allison R.N. 02/22/20 14:57: Tube feeding increased to 40mls/hr @ 1500. Residual <10mls At most recent check. Original Note: Am shift Pt is alert to self only. Wakes, makes eye contact, and falls asleep during assessment. NO s.sx of pain, restless. PIV x2, CIWA of 5 this AM. Ativan gtt infusing at 0.02mg/kg/hr. Amioderone gtt, new bag hung with rate reduced to 11.1 ml/hr, HR remains 90-120 Afib, PO metoprolol given per NG. 2L o2, Spo2 96-100% coarse lungs, with weak cough effort. Some oral suctioning provided. Bleeding to R nare resolved, NG remains in place with TF infusing @ 30mls/hr, and 250mls h20 flush. CBG 146, continue to turn q2. 1:1 sitter d/c'd as Pt is not making attempts to remove any lines at this time.
--- NOTE | 2020-02-22 14:54 | PT.IPTN ---
Current Diagnoses Weakness (02/17/20) Physical Therapy Treatment Note M2 PT-IP Current Condition Start: 02/18/20 12:07 Freq: NEEDED Status: Active Protocol: Document 02/20/20 10:17 AB (Rec: 02/20/20 15:17 AB [id number]) Physical Therapy Current Condition Current Condition Evaluation Date 02/20/20 Treatment Diagnosis metabolic encephalopathy; alcohol withdrawal; difficulty in walking Onset Date 02/17/20 Precautions Other Precautions Falls Document 02/22/20 14:51 AB (Rec: 02/22/20 14:54 AB [email or web address]) PT Summary Assessment and Plan Summary Assessment Summary SCRAPER BURRER informed PT that per nurse , pt is not appropriate for PT at this time. plan is to d/c pt from PT and nurse will get new orders if pt becomes more appropriate to do PT. SCRAPER BURRER informed Dr. Peres and agreed . Frequency of Treatment Frequency Of Treatment Discharge
[2020-02-22] MEDS: POTASSIUM CHLORIDE 20 MEQ/15 ML UDC 40 MEQ PO (15:53)
--- NOTE | 2020-02-22 17:17 | PC.NURSE ---
1600, skin assessment done, noted to have DTI to area around sacrum. Photo taken and Allevyn dressing applied after barrier cream. Will order q1hr turns.
[2020-02-22] MEDS: SODIUM CHLORIDE 0.9% 500 ML 1000 ML IV (17:45)
[2020-02-22] MEDS: ATORVASTATIN 20 MG TABLET PO (21:47)
--- NOTE | 2020-02-22 22:16 | PC.NURSE ---
1800 blanchable areas on both heels, feet off loaded and Allevyn dressing applied to both heels.
[2020-02-22] MEDS: SODIUM CHLORIDE 0.9% FLUSH 10 ML IV (22:21)
[2020-02-22] MEDS: AMIODARONE 360 MG/200 ML PIGGYBACK 16.6 MG IV (22:39)
[2020-02-23] VITALS (21 sets, daily range): BP systolic 57–126; BP diastolic 42–85; PULSE 58–93; RESP 20–40; TEMP 35.9–37.3; O2SAT 72–100
--- NOTE | 2020-02-23 | DI.RAD.S_ITS ---
PROCEDURE: XR CHEST 1V INDICATIONS: SOB, tachypnea, hemoptysis TECHNIQUE: One view of the chest was acquired. COMPARISON: 02/21/20. FINDINGS: Surgical changes and devices: NG tube in satisfactory position. Lungs and pleura: Interval development of patchy left basilar atelectasis versus consolidation. No pleural effusions or pneumothorax. Mediastinum: Mediastinal contours appear normal. Heart size is normal. Bones and chest wall: No suspicious bony lesions. Overlying soft tissues appear unremarkable. IMPRESSION: 1. NG tube remains in satisfactory position. 2. Interval development of patchy left basilar atelectasis versus consolidation. Comment: Progress films are recommended until clear. Dictated by: Prasad Spears M.D. on 02/23/2020 at 8:24 Approved by: Prasad Spears M.D. on 02/23/2020 at 8:26
--- NOTE | 2020-02-23 | DI.RAD.S_ITS ---
PROCEDURE: XR CHEST 1V INDICATIONS: CODE TECHNIQUE: One view of the chest was acquired. COMPARISON: 02/23/20 at 0931 hrs.. FINDINGS: Surgical changes and devices: The ET tube is now approximately 12.4 cm above the nadia. NG tube remains in place. Lungs and pleura: Patchy left basilar atelectasis. No pleural effusions or pneumothorax. Mediastinum: Mediastinal contours appear normal. Heart size is normal. Bones and chest wall: No suspicious bony lesions. No displaced rib fractures. Overlying soft tissues appear unremarkable. IMPRESSION: 1. ET tube tip is now approximately 12.4 cm above the nadia. Suggest advancement. 2. Patchy left basilar atelectasis. Dictated by: Prasad Spears M.D. on 02/23/2020 at 9:35 Approved by: Prasad Spears M.D. on 02/23/2020 at 9:38
[2020-02-23 05:38] LABS: Alanine Aminotransferase 21 IU/L (<50); Alkaline Phosphatase 101 U/L (38-126); Aspartate Aminotransferase 36 IU/L (17-59); BUN Creatinine Ratio 23.4 (6-22); Bilirubin Total 1.3 mg/dL (0.2-1.3); Bilirubin Unconjugated 0.8 mg/dL (0.0-1.1); Blood Urea Nitrogen 11 mg/dL (9-20); Calcium 8.3 mg/dL (8.4-10.2); Carbon Dioxide 30 mmol/L (22-32); Chloride 105 mmol/L (98-107); Estimated Glomerular Filt Rate > 60.0 mL/min (>60); Glucose 130 mg/dL (80-110); HEMOLYSIS < 15 (0-50); Phosphorous 3.1 mg/dL (2.3-3.7); Potassium 3.6 mmol/L (3.4-5.1); Sodium 139 mmol/L (137-145)
[2020-02-23] MEDS: METOPROLOL IR 25 MG TABLET 50 MG PO (06:04)
[2020-02-23] MEDS: LEVOTHYROXINE 75 MCG TABLET PO (06:26)
--- NOTE | 2020-02-23 08:27 | OT.IP.TRT ---
Current Diagnoses Weakness (02/17/20) Occupational Therapy Treatment Note M2 OT-IP Current Condition Start: 02/18/20 10:28 Freq: Status: Active Protocol: Document 02/20/20 13:38 [facility] (Rec: 02/20/20 16:57 [facility] [id number]) Occupational Therapy Current Condition Current Condition Evaluation Date 02/20/20 Treatment Diagnosis Metabolic encephalopathy, ETOH withdrawl Diagnosis Onset Date 02/17/20 Weight Bearing Status Weight Bearing Status Weight Bear as Tolerated M3 OT- IP Subjective and Pain Start: 02/18/20 10:28 Freq: Status: Active Protocol: Document 02/23/20 08:24 [facility] (Rec: 02/23/20 08:27 [facility] [email or web address]) OT- Subjective Occupational Therapy Visit Type Type Administrative Note Notes Pt continues to be unable to participate in therapy. Will discharge OT order at this time.
[2020-02-23] MEDS: SODIUM CHLORIDE 0.9% FLUSH 10 ML IV (09:00)
[2020-02-23] MEDS: SODIUM CHLORIDE 0.9% 500 ML IV (09:00)
--- NOTE | 2020-02-23 09:04 | P.DS_ITS ---
History of Present Illness History of Present Illness Date Patient Seen: 02/17/20 Chief complaint: weakness,dizziness Narrative: Written by Jamison DAVIS: Mr. Morgan Simpson is a 64-year-old male who is a current smoker and has a past medical history significant for hypothyroidism, GERD with esophagitis, and eczema who was sent to the ER from the respiratory clinic with complaints of shortness of breath, fatigue and weakness with falls, nausea and vomiting for 3 weeks. The patient is a questionable historian at this time due to medications in clinical condition. Information is gleaned from the patient as well as the medical record. The patient reports increasing weakness and fatigue for 3 weeks stating he feels ?run down?. The patient describes i ncreasing debilitation impairing his ability to care for himself. He endorses being unsteady on his feet and having fallen multiple times at home where he lives alone. Per the medical record the patient has been receiving Meals on wheels for the last 6 weeks. The patient does have history of alcohol dependence consuming 6 beers daily and a 5th of whiskey per week since age 17. His last drink was 2 days ago. The patient denies recent illness, fevers or chills. He has had no known COVID-19 exposure. He denies headaches or dizziness, visual changes, nasal congestion or sore throat. He denies complaints head trauma, neck or back pain. He has no chest pain and denies palpitations. He does have shortness of breath and has history of chronic cough though not present at this time. He denies complaints of abdominal pain but has a history of occurred with severe esophagitis. He relates having frequent nausea and having vomiting. Reports no bloody emesis, hematochezia or melena. He is unsure of his last bowel movement and states no difficulties with urinating. At baseline prior to recent events the patient has been active in walking daily. Dr. Wyman is the patient's PCP. The patient was to have appointments with cardiology and have an EGD done in October both of which were canceled due to COVID-19. Upon arrival to the ER the patient has temperature 97.5?, heart rate of 60, blood pressure 150/90 with respirations of 18 saturating 98% on room air. A chest x-ray obtained which finds no acute cardiopulmonary processes and abdominal ultrasound finds cholelithiasis with a 5 mm nonmobile stone lodged in the gallbladder neck with sonographic positive for a sign, no wall thickening or pericolic static fluid noted, diffuse increased hepatic echotexture. Twelve lead EKG is obtained of finding atrial fibrillation with RVR with a ventricular rate of 105 with PVC, left ventricular hypertrophy with left anterior fascicular block with lateral ST depression. On laboratory analysis the patient has white count of 3.3, hemoglobin of 15.4, hematocrit of 43.8, platelets of 82. On coagulation he has a PT of 11.7, INR 1.0, PTT of 31. He is hyponatremic at 130 with potassium 4.3. His BUN is 5 with a creatinine 0.64. His nonfasting glucose is 109. His magnesium is 1.7. On liver functions his total bilirubin is 2.6 with an AST of 185, ALT of 58 and alk-phos of 99. His albumin is 3.8. He has troponin of 0.013 and a proBNP of 2860. TSH is obtained and found to be 5.82. In the ER the patient received normal saline, lorazepam 0.5 mg IV Lasix 40 mg IV and was started on a banana bag at 125 cc/hour. The patient is admitted to the medicine service for new onset atrial fibrillation of unknown duration, weakness and ataxia and alcohol withdrawals. Discharge Providers Provider Date of admission: 02/17/20 20:29 Discharge Date: 02/23/20 Primary care physician: Jose Wyman MD Consults: 02/17/20 20:04 Consult to Dietitian, Adult Routine Comment: Reason For Exam: 25 lb weight loss in 3 months, alcohol abuse Consult to Discharge Planning Routine Comment: Consult to Occupational Therapy Evaluate & Treat Comment: Recent falls, ataxia Physician Instructions: Evaluate and treat 02/17/20 20:05 Consult to Physical Therapy Evaluate & Treat Comment: Recent falls, ataxia Physician Instructions: Evaluate and Treat 02/23/20 08:28 Consult to Occupational Therapy Evaluate & Treat Comment: Physician Instructions: Evaluate and treat Discharge provider: Lizzy Bhatt DO Summary Hospital Course Discharge Diagnosis: 1. Intubation for airway protection and code blue with successful ROSC. Previous A&P: 1. Atrial fibrillation with RVR, acuity unknown, present on admission. RVR resolved. 2. Toxic metabolic encephalopathy, present on admission. Active. 3. Acute alcohol withdrawal with chronic alcohol dependence, and DTs, present on admission. Active. 4. Alcoholic hepatitis, present on admission. Active. 5. Cholelithiasis without cholecystitis, present on admission. Active. 6. Gastroesophageal reflux with esophagitis, chronic. Stable. 7. Acquired hypothyroidism, chronic, present on admission. Stable. 8. Severe chronic illness protein calorie malnutrition, acute on chronic, present on admission. Active. 9. Acute heart failure with reduced ejection fraction, present on admission. Active. Hospital Course: When I arrived to the floor I was called to the patient's bedside due to shallow breathing, tachypnea, and the patient being significantly somnolent and minimally responsive (only to painful stimuli) unable to follow commands with concern for airway protection. The patient had been on an Ativan gtt and was likely over medicated with thought that he may have been aspirating due to NG tube induced oropharyngeal bleeding in setting of liver dysfunction and thrombocytopenia. Called the ED physician, Dr. Slaughter, to bedside for evaluation of intubation. The ED physican and myself agreed that the patient should be intubated emergently and forewent flumazenil to reverse Ativan gtt. The patient was transferred to negative pressure isolation room and was stat tested for COVID which had not been performed since admission. The ED physician requested 500 cc NS bolus and platelets. The patient was intubated by the ED physician which was a difficult airway and required mutliple attempts. The patient was difficult to ventilate with O2 sats persistently in the 70s on 100% FiO2. He then proceeded to become hypotensive and bradycardic. A code blue was called for PEA. The patient was successfully resuscitated please see ED physician note and Code sheet for further details. The patient was started on levophed gtt which was titrated up to 30 mcg/min and ordered vasopressin gtt which was not started. The ED physician placed a central line and stat CXR confirmed ETT and line placement. The patients VBG drawn off the central line demonstrated metabolic acidosis with PaO2 141 and SpO2 99% concerning for arterial central line placement. Started Zosyn for likely aspiration pneumonia with new left sided infiltrate. ED physician left after patient was considered stable with SpO2 70's and SBP 90's. Called on-call press catcher/hand glove cleaner Dr. Murphy who recommended arterial line placement for accurate BP and ABG/O2 monitoring, likely central line was placed in arteryl and patient was being over oxygenated with recommendation to titrate down on oxygen and levophed as t olerated. Called on-call anesthesiologist Dr. Mirza and arterial line was placed. The patient was stabilized after 4 hours of indirect and direct ICU care. The patient was titrated down on levophed to 5 mcg/min as BP improved/allowed and FiO2 was titrated down to 0.35 as oxygenation improved. The patient was accepted and transferred to [facility] for higher level of care with Dr. Dee, hospitalist and Dr. Murphy, press catcher. Previous A&P: Shmuel Simpson is a 64-year-old male who has been in declining health over the last 3 weeks and presented to the ED referred by the respiratory clinic with nausea, shortness of breath, ataxia/disequilibrium and falls. He was admitted for alcohol withdrawal with delirium tremens, atrial fibrillation, and alcoholic hepatitis. 1. Atrial fibrillation with RVR, acuity unknown, present on admission. RVR resolved. -He is found in atrial fibrillation upon arrival to the ER and is of unknown duration. Is mentioned that the patient has an appointment with Cardiology in the medical record which was canceled due to COVID-19, reason for the appointmen t was due to afib found on EKG in clinic with atrial fibrillation in july of 2019 (first detection of afib per chart) in clinic visit. Suspect EtOH related. Unknown if afib is paroxysmal or persistent at this time. -12 lead EKG on admission finds atrial fibrillation with RVR at a rate of 105 with PVC, left ventricular hypertrophy, left anterior fascicular block with lateral T-wave inversion and slight ST depression. Troponin is negative x2 at 0. 013 and 0.014. BNP is elevated at 2860. -TSH obtained in the ER is elevated at 5.82, fT4 is normal at 1.37. -the patient received a fluid challenge without benefit followed by Lasix 40 mg IV x1. Continued lasix 40 mg daily but clinically appears euvolemic to slightly dry and was held today. TTE is indicative of excessive volume however this was a few days ago now. -Continue to monitor potassium and magnesium, and keep greater than 4, and 2 respectively. -will continue patient's home regimen of aspirin 81 mg daily. -continue metoprolol IR 50 mg, but will up to TID this evening. Patient was briefly on diltiazem with IV pushes but will try and limit this given now known EF of 30%. Rate is worse when patient is agitated. However for further control added amiodarone, did not give initial bolus but will load with IV and start orals tomorrow with 200 mg daily. May not need to continue if improved on increased metoprolol. Continue to monitor liver function daily. -Continued enoxaparin 1 milligram/kilogram twice daily. -ordered echocardiogram which showed an EF of 30% approximately which is new for the patient. This may be reduced in the setting of afib or could be related to continued EtOH use. 2. Toxic metabolic encephalopathy, present on admission. Active. -the patient reports weakness and disequilibrium for over 2 weeks. He denies complaints of headaches or visual changes and has pre-existing centering changes related to cervical and lumbar spinal trauma. NIH score was 7 on admission but feel this is unlikely due to acute CVA. Possibilities include a wernicke's encephalopathy, EtOH withdrawal with DTs as noted below, alcoholic or other progressive dementia. -request PT and OT to consult evaluate and treat when patient is more alert, hopefullly tomorrow. -ordered MRI stroke protocol which was nondiagnostic due to patient motion, head CT was negative. Given improvement likely due to EtOH withdrawal / DTs, will ho ld on repeat MRI at this time. -ordered echocardiogram as noted above. -treat with high dose IV thiamine, B12 and folate levels are unremarkable. -management as noted below re: DTs. 3. Acute alcohol withdrawal with chronic alcohol dependence, and DTs, present on admission. Active. -patient with history of alcohol dependence since age 17, currently consuming 6 beers and a 5th of whiskey per week. Last drink was 2 days [employer]. -patient tremulous in the emergency department given 0.5 mg of Ativan IV. Librium increased from 25 mg q6 to 50 mg q6 given frequent ativan dosing, however this did not seem adequate given decreased p.o. intake and occasional inability to swallow. He was transitioned to an Ativan infusion starting yesterday in the hopes that this can be slightly more controlled and will reduce the ups and downs of frequent ativan dosing. -CIWA protocol instituted with seizure precautions. -banana bag IV with thiamine, folate, multivitamin, and magnesium started in the emergency department. -ordered multivitamin, high dose IV thiamine replacement and folic acid 1 mg daily daily -likely delirium tremens at this time given hallucinations. Continue treatment with IV thiamine for possible wernicke's given ataxia and encephalopathy. -per the patient's brother he has increased his EtOH consumption from only beers with friends to beer and hard liquor over the past few months and has been drinking alone. He was previously highly functional but since this increase has been forgetting to return phone calls and has been more angered. Does think he may have some congitive issues but generally is very intelligent at baseline. Consider baseline EtOH dementia as well however unclear. 4. Alcoholic hepatitis, present on admission. Active. -patient with history of alcohol dependence since age 17, currently consuming 6 beers and a 5th of whiskey per week. Last week 2 days ago. -no jaundice or evidence of ascites. -patient with elevated liver functions with a total bilirubin of 2.6, AST 185, ALT 58, AST 99, albumin of 3.8, platelets 82 and INR is 1.0. LFTs have continued to improve. His bilirubin is fluctuating but is fairly stable today at 2.5. -ultrasound finds diffused increased hepatic echotexture, CT of the abdomen is obtained finding subtle nodular contour of the liver suggestive of cirrhosis. 5. Cholelithiasis without cholecystitis, present on admission. Active. -patient has bilateral upper quadrant mild tenderness, with negative Rosas sign. -WBCs are 3.3 with no indication of acute infection, elevated LFTs related to #4 above, ultrasound identifies a 5 mm nonmobile stone at the gallbladder neck with positive sonographic Rosas sign. No gallbladder wall thickening or pericholestatic fluid. CT exam identifies gallbladder containing gallstones without biliary system dilation. -Dr. Alcala contacted through the emergency department for surgical consult. We appreciate his evaluation and recommendations. No current indications of cholecystitis. -will follow CBC, LFTs. Consider MRCP if bilirubin continues to rise. 6. Gastroesophageal reflux with esophagitis, chronic. present on admission. Stable. -patient with poor appetite, nausea and vomiting with bilateral upper abdominal and epigastric pain on palpation. -patient has previously been on omeprazole which has been discontinued since August. -ordered famotidine 20 mg twice daily. 7. Acquired hypothyroidism, chronic, presnt on admission. Stable. -TSH is found to be 5.82 in the emergency department requested T4 level which is found to be 1.37. -will continue current regimen is levothyroxine 75 mcg daily. 8. Severe chronic illness protein calorie malnutrition, acute on chronic, present on admission. Active. - r/t psychological causes (alcohol dependence) aeb pt report energy intake <75% >1mo, GI symptoms N/V >2 weeks, BMI <21 (age>65), weight loss of 21% in 6 mo. - appreciate dietary recommendations and assessment - have started feedings via NG tube. - reconsult speech when able to possibly tolerate a diet. 9. Acute heart failure with reduced ejection fraction, present on admission. Active. - as noted above, possibly tachyarrhythmia induced from atrial fibrillation. Further consider more chronic alcohol use leading to nonischemic heart failure. -IV lasix was continued but stopped today. Continue to reassess daily. Exam Vital Signs (past 8 hours): - 02/23/20 02:00 02/23/20 03:00 02/23/20 04:00 Temperature 99.1 F Pulse Rate 88 91 H 89 Respiratory Rate 34 H 30 H 29 H Blood Pressure 101/64 105/73 102/66 Pulse Oximetry 96 100 99 02/23/20 05:00 02/23/20 06:00 02/23/20 07:00 Temperature 98.1 F Pulse Rate 93 H 80 67 Respiratory Rate 24 27 H 40 H Blood Pressure 117/77 115/74 101/66 Pulse Oximetry 96 99 97 02/23/20 08:00 Temperature Pulse Rate 87 Respiratory Rate 40 H Blood Pressure 97/59 L Pulse Oximetry 94 Oxygen Delivery Method Nasal Cannula Oxygen Flow Rate 5 Narrative Exam Narrative: General: Older gentleman sitting in bed, appears older than stated age and chronically ill, in mild distress with tachypnea, shallow breathing, and hemoptysis with concern for lack of airway protection, minimally responsive to name. HEENT: Normocephalic, atraumatic. External ears without defect. Pupils equal, round, and reactive to light. Anicteric sclerae, moist conjunctivae, and no lid lag. NG tube in place with dried heme around entry. Neck: Supple with full range of motion. No jugular venous distension. No lymph adenopathy or thyromegaly. Cardiovascular: Irregularly irregular, without murmurs, rubs, or gallops appreciated. Pulmonary: Coarse upper airway rhonchi but clear to auscultation. No wheezes, or rhonchi. Tachypneic with very shallow breathing. Abdomen: Soft, bowel sounds present, does not appear tender, nondistended. No hepatosplenomegaly or masses appreciated. Extremities: No clubbing, cyanosis, or edema. Skin: Normal temperature, turgor, and texture; no rash, ulcers, or subcutaneous nodules appreciated. Objective Labs Result Diagrams: 02/23/20 10:05 02/23/20 10:05 Labs: Laboratory Results - last 24 hr 02/22/20 02/22/20 02/23/20 09:50 09:50 04:53 Sodium 139 139 Potassium 3.2 L 3.6 Chloride 105 105 Carbon Dioxide 31 30 BUN 12 11 Creatinine 0.55 L 0.47 L Estimated GFR > 60.0 > 60.0 BUN/Creatinine Ratio 21.8 23.4 H Glucose 166 H 130 H Calcium 8.4 8.3 L Phosphorus 3.4 D 3.1 Magnesium 1.9 2.0 Total Bilirubin 1.7 H 1.3 Conjugated Bilirubin 0.0 0.0 Unconjugated Bilirubin 1.1 0.8 AST 46 36 ALT 24 21 Alkaline Phosphatase 90 101 Total Protein 6.4 6.0 L Albumin 3.2 L 3.0 L Globulin 3.2 3.0 Albumin/Globulin Ratio 1.0 1.0 Discharge Plan Discharge Plan Patient Disposition: [facility] Discharge orders & Medications Follow up/Referrals: Jose Wyman MD [Primary Care Provider] - Diet/Activity/Treatments Diet: Nothing by Mouth Oxygen: [facility] Discharge Data Primary Care Provider: Jose Wyman Discharges patient from system. Discharge Date/Time: 02/23/20 14:40
[2020-02-23 09:18] LABS: Add Manual Diff / Slide Review NO; Basophils Absolute Auto 0 /uL (0-100); Basophils Percent Auto 0.3 % (0-2); Eosinophils Absolute Auto 0 /uL (0-450); Eosinophils Percent Auto 0.6 % (2-4); Hemoglobin 13.6 g/dL (13.5-17.5); Lymphocytes Absolute Auto 1300 /uL (1100-4500); Lymphocytes Percent Auto 19.6 % (25-40); Mean Corpuscular HGB Conc 34.1 % (30-36); Mean Corpuscular Hemoglobin 35.5 PG (26-34); Mean Corpuscular Volume 104.1 fL (80-100); Monocytes Absolute Auto 900 /uL (0-900); Monocytes Percent Auto 13.7 % (3-14); Neutrophils Absolute Auto 4300 /uL (1500-7000); Neutrophils Percent Auto 65.8 % (50-75); Platelet Count 71 X10^3/uL (150-400); Red Blood Cell Count 3.84 X10^6/uL (4.5-5.9); Red Cell Distribution Width 14.2 % (11.6-14.8); White Blood Cell Count 6.5 X10^3/uL (4.5-11.0)
--- NOTE | 2020-02-23 09:29 | DI.RAD.S_ITS ---
PROCEDURE: XR CHEST 1V INDICATIONS: intubation TECHNIQUE: One view of the chest was acquired. COMPARISON: 02/23/20 at 0816 hrs.. FINDINGS: Surgical changes and devices: ET tube tip is approximately 0.5 cm above the nadia. NG tube extends into the stomach. Lungs and pleura: Patchy atelectasis versus consolidation, left lung base. No pleural effusions or pneumothorax. Mediastinum: Mediastinal contours appear normal. Heart size is normal. Bones and chest wall: No suspicious bony lesions. Overlying soft tissues appear unremarkable. IMPRESSION: 1. ET tube tip approximately 8.5 cm above nadia. 2. Patchy atelectasis versus consolidation, left lung base. Dictated by: Prasad Spears M.D. on 02/23/2020 at 9:08 Approved by: Prasad Spears M.D. on 02/23/2020 at 9:11
[2020-02-23] MEDS: SODIUM CHLORIDE 0.9% 1,000 ML 1000 ML IV ×2 (09:30→10:30)
[2020-02-23 09:57] LABS: Procalcitonin 0.05 ng/mL (<0.5)
[2020-02-23] MEDS: NOREPINEPHRINE 4 MG in DEXTROSE 5% IN WATER 250 ML 30.48 ML IV (09:58)
[2020-02-23 11:02] LABS: Lactate (Lactic Acid) 7.4 mmol/L (0.7-2.1)
[2020-02-23 11:11] LABS: Add Manual Diff / Slide Review NO; Basophils Absolute Auto 100 /uL (0-100); Basophils Percent Auto 1.1 % (0-2); Eosinophils Absolute Auto 0 /uL (0-450); Eosinophils Percent Auto 0.6 % (2-4); Hematocrit 41.9 % (41-53); Hemoglobin 13.9 g/dL (13.5-17.5); Lymphocytes Absolute Auto 2400 /uL (1100-4500); Lymphocytes Percent Auto 35.6 % (25-40); Mean Corpuscular HGB Conc 33.3 % (30-36); Mean Corpuscular Hemoglobin 35.5 PG (26-34); Mean Corpuscular Volume 106.6 fL (80-100); Monocytes Absolute Auto 500 /uL (0-900); Monocytes Percent Auto 8.2 % (3-14); Neutrophils Absolute Auto 3600 /uL (1500-7000); Neutrophils Percent Auto 54.5 % (50-75); Platelet Count 67 X10^3/uL (150-400); Red Blood Cell Count 3.93 X10^6/uL (4.5-5.9); Red Cell Distribution Width 14.1 % (11.6-14.8); White Blood Cell Count 6.6 X10^3/uL (4.5-11.0)
--- NOTE | 2020-02-23 11:19 | ED.CONSULT ---
ED Provider Consult/Code Note General Date Patient Seen: 02/23/20 Time Patient Seen: 09:00 Reason for Admission: weakness,dizziness Events leading to Consult/Code: Patient is a 64-year-old gentleman currently in the CCU with severe alcohol withdrawals. Asked by Dr. García to help with assessment for shallow respiratory rate, ineffective breathing and loss of airway protection. On initial exam exam, patient is minimally responsive, does not appear to be protecting his airway, sounds very much like he has aspirated with coarse upper lung noises and right middle lobe rhonchi. ABG is obtained which does not suggest impending respiratory failure despite the poor respiratory effort noted clinically. Decision to move to intubation for airway protection given the concerns for ongoing aspiration and altered mental status is discussed and together we chose to moved to intubation. Covid status is not firmly established so full precaution with PAPR for all staff and negative airflow room was facilitated. In preparation for intubation for airway control, patient is preoxygenated and given a L of fluid for blood pressure control. Sedating and paralyzing medications include ketamine and succinylcholine (potassium levels were normal today) With appropriate respiratory precautions taken for all staff involved, time-out is performed prior to intubation. Intubation: Crocker scope was used, 8.0 ETT. After adequate anesthesia and paralysis, glide scope is introduced. There is quite a bit of blood and mucus debris in the esophagus however cords are usually visualized with no blood or debris passing through the cords. With initial attempt despite multiple tries at manipulating the tube the glide scope stylet and bougie, the cords are too anterior to access. Attempt is discontinued. Oral airway is placed. Patient is bagged and repositioned. With these attempts patient goes into atrial fibrillation with a rapid ventricular response at a rate of 120. Oxygen saturation is difficult to measure due to peripheral vaso constriction. Attempts were currently on going to locate additional either ear probe or forehead probe to better assess oxygenation. 150 mg of amiodarone was given for the atrial fibrillation as this had been used previously and his hospital stay and was effective. Second attempt after further positioning was made with intubation this time with clear and obvious tube through vocal cords appreciated with glide scope. In attempt to decreased aerosolisation, cuff was inflated and tube was immediately hooked up to ventilator . It was not clear that effective ventilations were being delivered via ventilator. Oxygen saturations were dropping. Ventilator was discontinued and hand bagging of ET tube preceded. Oxygenation continued to drop. Quick look again with glide scope seem to confirm tube placement however saturations continued to fall. Tube was removed patient was hand bagged with oral airway in place with oxygenation improving. Repeat attempt with intubation, bougie clearly inserted into trachea obviously between the cords with excellent visualization on GlideScope. Tube was advanced over the bougie again clearly going through the cords. There was poor CO2 change, obvious upper airway noises with airway delivery, misting with axillary roque inside the tube and sectioning down the tube revealed very little debris with suctioning from the NG tube and in the posterior pharynx revealing a significant amount of bloody mucus debris. With each of these confirmation for appropriate to placement oxygenation continued to be a problem. Peep was increased patient was positioned and saturations slowly improved. By this time a 2nd dose of 150 mg of amiodarone had been administered for atrial fibrillation. He was back in sinus rhythm, chest x-ray was done to confirm ET tube placement. Also confirmed lack of pneumothorax. Minor bibasilar infiltrates. Blood pressure was beginning to fall and oxygen saturations were again declining and sinus bradycardia was appreciated is the rhythm. Push dose epinephrine was used initially 0.2 mg followed then by 0.4 mg as preparations for central line placement were made. Patient continued to become bradycardic and when rate was down into the 30s. Pulses were lost. Code blue was called with initial rhythm presumed to be PE a. An amp of epi was administered. After 3 rounds of effective CPR patient had return of pulses, a blood pressure, and increasing end-tidal CO2. Central line placement: Due to physical limitations of the room personnel space and time constraints choices made to do a right subclavian placement rather than ultrasound-guided central line placement. Right subclavian line was placed with single stick no complications a slow venous blood flow was appreciated through the central line. Central Line Placement: A time-out was completed verifying correct patient, procedure and site. Patient was positioned for procedure. Patient was prepped and draped in usual sterile fashion. Triple lumen central line was introduced over a guide wire using the Seldinger technique. Good blood flow was noted from the port(s). Estimated blood loss was 3cc The catheter was sutured into place. Chest x-ray repeated after central line placement and CPR and patient repositioning indicates appropriate central line placement, no pneumothorax and ET tube significantly high in the trachea. Patient's care is turned over to hospitalist, Dr Bhatt. Please see code summary for additional details of the events including specific times. Call to Radiology to review repeat chest x-ray with malpositioned ET tube to confirm he agreed with appropriate central line placement. Tube will be advanced 6 cm and chest x-ray will be repeated. Through entire events, patient has not had significant meaningful movement or interaction. Total course of events above did last longer than I would have expected the ketamine to stay fully on board. Patient remains in critical condition.
[2020-02-23 11:31] LABS: Creatine Kinase 41 U/L (55-170)
[2020-02-23 11:33] LABS: Alanine Aminotransferase 18 IU/L (<50); Albumin 2.6 g/dL (3.5-5.0); Albumin Globulin Ratio 0.9 (1.0-2.8); Alkaline Phosphatase 105 U/L (38-126); Aspartate Aminotransferase 37 IU/L (17-59); BUN Creatinine Ratio 15.9 (6-22); Bilirubin Total 1.2 mg/dL (0.2-1.3); Blood Urea Nitrogen 10 mg/dL (9-20); Calcium 7.6 mg/dL (8.4-10.2); Carbon Dioxide 14 mmol/L (22-32); Chloride 110 mmol/L (98-107); Estimated Glomerular Filt Rate > 60.0 mL/min (>60); Globulin 2.8 g/dL (1.7-4.1); Glucose 233 mg/dL (80-110); HEMOLYSIS 32 (0-50); Magnesium 2.3 mg/dL (1.6-2.3); Potassium 4.6 mmol/L (3.4-5.1); Sodium 137 mmol/L (137-145); Total Protein 5.4 g/dL (6.3-8.2)
[2020-02-23 11:43] LABS: Troponin I < 0.012 ng/mL (0.01-0.034)
[2020-02-23 11:47] LABS: COVID19 -Nasal RAPID Negative (Negative)
[2020-02-23] MEDS: PIPERACILLIN-TAZO 3.375 GM/50 ML FROZ.PIGGY IV (12:00)
[2020-02-23 12:26] LABS: Reflexed Lactate in 2 Hours Y
[2020-02-23 13:13] LABS: HCO3 ABG 28 mmol/L (22-26); PCO2 ABG 32.8 mmHg (35-45); PO2 ABG 80 mmHg (80-100); TCO2 ABG 29 mmol/L (21-31); pH ABG 7.53 (7.35-7.45)
[2020-02-23 13:14] LABS: Fractionated Inspired Oxygen 35; Oxygen Saturation ABG 97 % (95-100)
[2020-02-23 13:26] LABS: HCO3 ABG 14 mmol/L (22-26); PCO2 ABG 34.5 mmHg (35-45); PO2 ABG 141 mmHg (80-100); TCO2 ABG 15 mmol/L (21-31); pH ABG 7.21 (7.35-7.45)
[2020-02-23 13:27] LABS: Fractionated Inspired Oxygen 70; Oxygen Saturation ABG 99 % (95-100)
[2020-02-23] MEDS: FAMOTIDINE 20 MG/50 ML PIGGYBACK 200 MG IV (13:30)
[2020-02-23] MEDS: POTASSIUM CHLORIDE 40 MEQ in SODIUM CHLORIDE 0.9% 500 ML 130 ML IV (13:30)
[2020-02-23 13:35] LABS: HCO3 ABG 16 mmol/L (22-26); PCO2 ABG 35.9 mmHg (35-45); PO2 ABG 58 mmHg (80-100); TCO2 ABG 17 mmol/L (21-31); pH ABG 7.24 (7.35-7.45)
[2020-02-23 13:36] LABS: Fractionated Inspired Oxygen 30; Oxygen Saturation ABG 85 % (95-100)
--- NOTE | 2020-02-23 14:20 | PC.NURSE ---
Rec'd pt in bed resting eyes closed on 2L NC with continuous tube feedings to r nare NGT. Pt is on ativan gtt infusing through a patent PIV for management of ETOH w/d. Pt is responsive to painful stimuli. With light sternal rub, says what? with mumbled speech. He is unable to follow commands is noted to lift both arms weakly toward ngt. Paused tube feeds temporarily and paused ativan gtt due to level of sedation. Lowered HOB to facilitate repositioning and turning at which time pt was noted to be audibly gurgling. Sat pt bolt upright. Shallow oral suctioning done revealing large amounts of bright red blood. There is also dried blood noted to around NGT. After shallow suction is performed pt continues to have audible gurgling and is weakly coughing but unable to expectorate or manage secretions. RR is shallow and pt is tachypneic 40s-50s. Increased 02 to 5L NC (from 2L) for SPO2 86% to get SPO2 to 95%. Spoke with Dr. Bhatt ~0800 and requested she come to bedside to assess pt due to increased work of breathing, large amount of blood suctioned, and concerns that pt will be unable to protect his own airway due to level of sedation. Dr. Bhatt came to bedside and gave verbal order for deep oral suctioning which revealed large amount of bright red blood. Dr. Bhatt assessed pt, lab work reviewed (platelets, especially), VS reviewed, meds reviewed. Dr. Bhatt spoke with Dr. Slaughter (ED physician) and reviewed case and decided to procede with intubation for airway protection. Pt was transferred to room 230 for use of negative pressure and PAPR due to need to r/o COVID. Dr. Slaughter gave VORB to infuse 500 ML NS and prepare succ/ketamine for intubation. Pt was given 500 ML bolus and connected to bedside monitor. RT at bedside setting up vent and preparing for airway. Dr. Slaughter to bedside with glidescope. Pt was difficult to intubate and required 3 attempts. Last attempt confirmed with CO2 colormetric, bilateral breath sounds, and XR. Post intubation, pt noted pt noted to be bradycardic/hypotensive and required intermittent epi pushes (see code flow sheet). A code was called (see flow sheet). XR was obtained to confirm line placement/ETT placement. Pt was continued on levophed gtt that was started during code (see flow sheet) and titrated to 30 mcg/min and due to inability to obtain accurate BP/abg, anesthesia was called to bedside to place art line ~1030. Pt received a total of 2500 ML NS and levophed was titrated down to 5 mcg/min. Plan of care updated- pt will transfer to [facility] for higher level of care. Orders for platelets are in and 2 RNs called pt's next of kin to obtain consent; however, platelets weren't ready from the lab prior to the pt's transfer to [facility]. [facility] team here. Bedside report given to RN. Pt was placed on transport monitor and transport IV pumps. Pt was transferred from bed to stretcher with 3PA. Pt left at 1440 to [facility]. Report called to JUNE Parrish at [facility].
--- NOTE | 2020-02-23 14:48 | CM.DPNOTE ---
Patient transferred to [facility] today after attempt at intubation and code blue this morning. Updated notes in process now from Dr Bhatt and nursing staff. JW
--- NOTE | 2020-04-21 08:12 | PM.EVENT ---
Event Note Date Patient Seen: 02/23/20 Event Note: Intubation Central Line placement Code Carl note Asked by hospitalist to help with assessing ICU patient with inadequate respiratory response and impending respiratory failure. Patient had been hospitalized for a number of days for acute alcohol withdrawal in covered status was not known. Patient had increasingly altered mental status, fever, hypotension and concern for infection with possibility of an aspiration pneumonia complicating his alcohol withdrawal was entertained. Was also thrombocytopenic. 500 cc normal saline bolus, platelet transfusion and transfer to it negative airway room with full airborne precaution for Covid were all instituted. With appropriate staff in place rapid sequence intubation was undertaken with glide scope. Excellent view of cords with what appeared to be appropriate tube placement through the vocal cords. In concordance with current Covid recommendations at that time, no intermittent bagging was done and to was immediately attached to ventilator to decrease any airborne contamination. After intubation saturations continued to decrease. He was unclear if ventilator was not working appropriately or tube was misplaced. Tube was disconnected from ventilator and hand bagging was attempted without clear improvement in oxygenation with ventilation. Decision was made to extubate, bag and re-attempt intubation. On 2nd attempt, again excellent does lose visualization of tube passing between vocal cords similar difficulties with oxygenation and as sets continued to drop patient became increasingly hypotensive and bradycardic. Andrew lim was called at this time. Shortly thereafter patient did actually lose pulses and CPR was started with initial rhythm being PEA. Please see code sheet for details Attention was again turned to tube to confirm placement. There was color change, appropriate mist inside the tube, symmetrical chest rise with a breath given, and glide scope was again used to reconfirm tube placement was absolutely through the cords. Due to CPR and staff personnel along with covered concerns and full airborne PPE precautions ongoing chest x-ray was not available for additional confirmation. Oxygenation continued to be an issue and then later rates in volumes were increased. Levophed drip was started and push dose epinephrine was used until the drip was available and infusing. Patient did have ROSC. Attention was then turned to access, central line was placed without complication. Despite significantly low oxygen saturations peripherally central oxygenation was much more appropriate. Chest x-ray was then done to confirm both central line placement and tube placement. Patient remained unresponsive without additional sedation or paralytics required throughout all events. Case was discussed with hospitalist, Dr. Pondera in real time to ensure appropriate coordination of care. Care is transferred completely back to her and patient remained in critical condition.
== END 2020-02-23 14:40 | disposition short-term general hospital (02) | DRG 896 ==
LOC: ED 20:23 → AC 20:29 → ICU 02-18 09:27
PROVIDERS: Emergency Medicine; Internal Medicine; Admitting Provider Nurse Practitioner Adult Health; Emergency Provider Nurse Practitioner Family; PCP Internal Medicine; Referring Provider Nurse Practitioner Family; Visit Provider Nurse Practitioner Adult Health
DX: F10.231 Alcohol dependence with withdrawal delirium (principal); I50.21 Acute systolic (congestive) heart failure; E43 Unspecified severe protein-calorie malnutrition; G93.41 Metabolic encephalopathy; E87.1 Hypo-osmolality and hyponatremia; I48.91 Unspecified atrial fibrillation; K74.60 Unspecified cirrhosis of liver; J44.9 Chronic obstructive pulmonary disease, unspecified; K21.9 Gastro-esophageal reflux disease without esophagitis; E03.9 Hypothyroidism, unspecified; F17.210 Nicotine dependence, cigarettes, uncomplicated; I44.4 Left anterior fascicular block; K80.20 Calculus of gallbladder without cholecystitis without obstruction; K70.10 Alcoholic hepatitis without ascites; R40.2364 Coma scale, best motor response, obeys commands, 24 hours or more after hospital admission; R40.2144 Coma scale, eyes open, spontaneous, 24 hours or more after hospital admission; R40.2244 Coma scale, best verbal response, confused conversation, 24 hours or more after hospital admission; Z68.20 Body mass index [BMI] 20.0-20.9, adult
CPT/HCPCS: 36415; 36600; 70450; 70548; 70553; 71045; 74160; 76705; 80048; 80053; 80076; 80305; 81003; 81015; 82140; 82248; 82550; 82553; 82607; 82746; 82805; 82962; 83605; 83690; 83735; 83880; 84100; 84145; 84439; 84443; 84484; 84550; 85025; 85610; 85730; 86900; 86901; 87635; 92950; 93005; 93306; 94002; 94762; 94770; 94799; 96365; 96375; 97162; 97165; 99285; J0171; J0282; J0461; J1630; J1650; J1940; J2060; J2543; J2560; J3475; J3480; Q9967

== ENCOUNTER → 2020-06-16 12:03 | Outpatient (CLI) | payer MEDICARE, MEDICAID, SELFPAY ==
[2020-02-21 10:01] VITALS: BMI 20.8
[2020-02-23 11:45] VITALS: PULSE 67; RESP 20; O2SAT 100
[2020-06-16 12:41] LABS: Add Manual Diff / Slide Review NO; Basophils Absolute Auto 100 /uL (0-100); Eosinophils Absolute Auto 100 /uL (0-450); Eosinophils Percent Auto 2.4 % (2-4); Hematocrit 45.8 % (41-53); Hemoglobin 16.1 g/dL (13.5-17.5); Lymphocytes Absolute Auto 1700 /uL (1100-4500); Lymphocytes Percent Auto 28.8 % (25-40); Mean Corpuscular HGB Conc 35.2 % (30-36); Mean Corpuscular Hemoglobin 33.6 PG (26-34); Mean Corpuscular Volume 95.5 fL (80-100); Monocytes Absolute Auto 700 /uL (0-900); Monocytes Percent Auto 11.4 % (3-14); Neutrophils Absolute Auto 3300 /uL (1500-7000); Neutrophils Percent Auto 55.4 % (50-75); Platelet Count 236 X10^3/uL (150-400); Red Blood Cell Count 4.79 X10^6/uL (4.5-5.9); Red Cell Distribution Width 12.5 % (11.6-14.8); White Blood Cell Count 5.9 X10^3/uL (4.5-11.0)
[2020-06-16 13:19] LABS: Alanine Aminotransferase 12 IU/L (<50); Albumin 4.7 g/dL (3.5-5.0); Albumin Globulin Ratio 1.2 (1.0-2.8); Alkaline Phosphatase 88 U/L (38-126); Aspartate Aminotransferase 29 IU/L (17-59); BUN Creatinine Ratio 15.2 (6-22); Blood Urea Nitrogen 7 mg/dL (9-20); Calcium 9.6 mg/dL (8.4-10.2); Carbon Dioxide 30 mmol/L (22-32); Chloride 98 mmol/L (98-107); Estimated Glomerular Filt Rate > 60.0 mL/min (>60); Glucose 100 mg/dL (80-110); HEMOLYSIS < 15 (0-50); Potassium 4.3 mmol/L (3.4-5.1); Sodium 135 mmol/L (137-145); Total Protein 8.7 g/dL (6.3-8.2)
[2020-06-16 13:31] LABS: Free T4, Direct Thyroxine 1.35 ng/dL (0.78-2.19)
[2020-06-16 13:45] LABS: Thyroid Stimulating Hormone 1.26 uIU/mL (0.47-4.68)
== END ==
PROVIDERS: PCP Internal Medicine; Referring Provider Internal Medicine; Visit Provider Internal Medicine
DX: E03.9 Hypothyroidism, unspecified (principal); I48.0 Paroxysmal atrial fibrillation; K57.30 Diverticulosis of large intestine without perforation or abscess without bleeding
CPT/HCPCS: 36415; 80053; 84439; 84443; 85025

== ENCOUNTER → 2020-08-01 09:15 | Outpatient (CLI) | payer MEDICARE, MEDICAID, SELFPAY ==
[2020-02-21 10:01] VITALS: BMI 20.8
[2020-02-23 11:45] VITALS: PULSE 67; RESP 20; O2SAT 100
--- NOTE | 2020-08-01 09:17 | DI.ECHO.S_ITS ---
[place] +---------+ [facility] +---------+ : : [address] : [address] : : : : [phone] : : : : Phone: [phone]+ Echocardiogram Report + + :Name: CHIARA MIRANDA I Study Date: 08/01/2020 Height: 70 in : :[facility] Weight: 167 lb : : Gender: Male BSA: 1.9 m2 : :: 1955 Age: 65 yrs BP: 145/93 mmHg: :Reason For Study: Cardiomyopathy, Paroxysmal atrial : :fibrillation : :Ordering Physician: Dr. Garcia : :Zamzam Performed By: Yeimy Knight : + + Interpretation Summary Left ventricular systolic function has markedly improved since the previous study, now systolic function at the lower limits of normal with an ejection fraction visually estimated around 50 to 55% with borderline global hypokinesis but no focal wall motion abnormality. Left ventricular volumes are now normal with reduction in end-diastolic volume from 126 mL to 96 mL. There is a probable relaxation diastolic abnormality but probable normal filling pressures. The right ventricle appears normal in size with systolic function of the lower limits of normal but significantly improved from the previous study. Right ventricular systolic pressure cannot be estimated but CVP is likely around 3 mmHg. There is moderate left atrial enlargement with normal right atrial size. Both have decreased in size since the previous study. There is mild to moderate mitral regurgitation with an eccentric posteriorly directed jet that appears less prominent compared to the previous study. There is no other significant valvular abnormality. The aortic root is borderline enlarged and the ascending aorta is mildly enlarged, but both are grossly unchanged from the previous study. The patient was in sinus rhythm at 54-62 bpm compared to atrial fibrillation at 80-110 bpm on the previous study. Procedure: A two-dimensional transthoracic echocardiogram with color flow and Doppler was performed. The study quality was technically adequate. Comparison is made with the echocardiogram of 02/20/2020. The patient was in sinus bradycardia with heart rates between 54-62 bpm during the exam. Left Ventricle: The left ventricle is normal in size. There is normal left ventricular wall thickness. The estimated left ventricular end diastolic volume is 96 ml. This is smaller compared to the previous study. There is no ventricular septal defect visualized. A false chord is noted (normal variant). Left ventricular systolic function is low normal. The ejection fraction is estimated to be 50-55%. Left ventricular systolic function is borderline reduced. Left ventricular systolic function has markedly improved compared to the previous exam. There is mild global hypokinesis of the left ventricle. There are no focal wall motion abnormalities. Diastolic parameters suggest a relaxation abnormality of the left ventricle, consistent with probable normal filling pressures. Right Ventricle: The right ventricle is normal size. Right ventricular systolic function is at the lower limits of normal. This is significantly improved compared to the previous study. Atria: The left atrium is moderately dilated. Both atria have mildly decreased in size since the prior echo exam. Right atrial size is normal. There is no Doppler evidence for an interatrial shunt. Mitral Valve: The mitral valve leaflets appear mildly thickened, but open well. The mitral valve leaflets are slightly calcified. There is mild to moderate mitral regurgitation. There is an eccentric jet of mitral regurgitation that is directed posteriorly. This is less prominent compared to the previous study. Aortic Valve: The aortic valve is normal in structure and function. The aortic valve is trileaflet. The aortic valve opens well. No aortic regurgitation is present. Tricuspid Valve: The tricuspid valve is normal in structure and function. There is a trace or physiologic amount of tricuspid regurgitation. Pulmonary artery pressures cannot be estimated because of the lack of a measurable TR jet velocity but the IVC suggests a CVP of around 3 mmHg. Pulmonic Valve: The pulmonic valve is not well seen, but is grossly normal. There is a trace or physiologic amount of pulmonic regurgitation. There is no other significant valvular heart disease. Great Vessels: The aortic root is borderline dilated. The ascending aorta is mildly enlarged. This is unchanged compared to the previous study. The aortic arch could not be visualized. The IVC is of normal diameter and collapses greater than 50% with a sniff. This suggests a low right atrial pressure of 3 mm Hg. Pericardium/ Pleura There is no pericardial effusion. MMode/2D Measurements & Calculations LVIDd: 5.4 cm LVOT diam: 2.4 cm LVIDs: 3.7 cm Ao root diam: 4.1 cm FS: 32.2 % Aortic Jxn: 3.0 cm EPSS: 1.4 cm asc Aorta Diam: 3.7 cm IVSd: 0.70 cm LVPWd: 0.78 cm LV larry. diameter/BSA (cm/m^2): 2.8 LV sys. diameter/BSA (cm/m^2): 1.9 LA A2 area: 24.3 cm2 RA long axis: 5.4 cm LA A4 area: 21.5 cm2 RA area: 18.1 cm2 LA length (vol): 5.1 cm RA vol: 51.3 ml LA vol: 86.9 ml RA : 26.5 ml/m2 LA vol index: 44.9 ml/m2 IVC diam: 1.5 cm RVD1 (basal): 3.9 cm RVD2 (mid): 3.3 cm TAPSE: 1.7 cm Doppler Measurements & Calculations Ao V2 max: 94.1 cm/sec LVOT Max Raul: 61.1 cm/sec Ao V2 mean: 64.6 cm/sec LV V1 max P.5 mmHg Ao max P.5 mmHg LV V1 VTI: 11.1 cm Ao mean P.8 mmHg YAYO(I,D): 2.6 cm2 Ao V2 VTI: 19.4 cm YAYO(V,D): 2.9 cm2 sev ratio: 0.57 YAYO indexed to BSA (cm^2/m^2): 1.3 MV E max raul: 34.1 cm/sec PA V2 max: 42.4 cm/sec MV A max raul: 57.6 cm/sec PA V2 mean: 34.3 cm/sec MV E/A: 0.59 PA mean P.50 mmHg Med Peak E' Raul: 4.2 cm/sec PA Accel Time: 0.19 sec E/E' med: 8.2 Lat Peak E' Raul: 6.6 cm/sec E/E' lat: 5.1 E/e' average: 6.7 MV dec time: 0.44 sec MV P1/2t: 130.2 msec MR ERO: 0.03 cm2 MV P1/2t max raul: 34.7 cm/sec MR VTI: 203.3 cm MVA(P1/2t): 1.7 cm2 MR PISA: 0.45 cm2 SV(LVOT): 50.2 ml MR flow rate: 16.5 cm3/sec MR PISA radius: 0.27 cm Reading Physician:11:09 AM
== END ==
PROVIDERS: PCP Internal Medicine; Referring Provider Internal Medicine; Visit Provider Internal Medicine
DX: I34.0 Nonrheumatic mitral (valve) insufficiency (principal); I42.9 Cardiomyopathy, unspecified; I48.0 Paroxysmal atrial fibrillation; I77.89 Other specified disorders of arteries and arterioles
CPT/HCPCS: 93306

== ENCOUNTER → 2020-12-22 14:02 | Outpatient (CLI) | payer MEDICARE, MEDICAID, SELFPAY ==
[2020-02-21 10:01] VITALS: BMI 20.8
[2020-02-23 11:45] VITALS: PULSE 67; RESP 20; O2SAT 100
[2020-12-22 16:42] LABS: Blood Urea Nitrogen 5 mg/dL (9-20); Calcium 8.9 mg/dL (8.4-10.2); Carbon Dioxide 27 mmol/L (22-32); Chloride 96 mmol/L (98-107); Estimated Glomerular Filt Rate > 60.0 mL/min (>60); Glucose 81 mg/dL (80-110); HEMOLYSIS < 15 (0-50); Potassium 4.3 mmol/L (3.4-5.1); Sodium 134 mmol/L (137-145)
== END ==
PROVIDERS: PCP Internal Medicine; Referring Provider Internal Medicine; Visit Provider Internal Medicine
DX: I10 Essential (primary) hypertension (principal)
CPT/HCPCS: 36415; 80048

== ENCOUNTER 2021-02-20 20:54 | Emergency (ER) | payer MEDICARE, MEDICAID, SELFPAY ==
[2020-02-21 10:01] VITALS: BMI 20.8
[2020-02-23 11:45] VITALS: PULSE 67; RESP 20; O2SAT 100
[2021-02-20] VITALS (9 sets, daily range): BP systolic 145–189; BP diastolic 84–101; PULSE 47–76; RESP 16–19; TEMP 36.7; O2SAT 93–97; BMI 25.8
--- NOTE | 2021-02-20 20:57 | ED.FALL ---
HPI - Fall General Chief Complaint: Fall Stated Complaint: Fall Time Seen by Provider: 02/20/21 20:56 Source: patient and EMS Mode of arrival: EMS History of Present Illness HPI Narrative: 65-year-old male daily smoker who drinks frequently presents by EMS for evaluation of a fall just prior to arrival. He lives at home alone and was sitting in a plastic chair and somehow lost his balance and fell backwards, he denies any head neck or back pain, he denies any extremity injury. He states he drank his normal amount and is unsure why he is here. EMS was activated by a neighbor who saw him fall and struggle, he was brought here because he is home alone and unable to care for himself. MD complaint: fall Onset (ago): minute(s) Fall from: chair Fall witnessed: yes, by bystander Place fall occurred: home Loss of consciousness: none Prolonged down time: no Context: alcohol use Severity: mild Related Data Previous Rx's Medication Instructions Recorded levothyroxine 75 mcg tablet 75 mcg PO QDAY #90 tab 06/16/20 lisinopril 20 mg tablet 20 mg PO DAILY #30 tab 11/24/20 Allergies Allergy/AdvReac Type Severity Reaction Status Date / Time ciprofloxacin [From CIPRO] AdvReac Severe SWELLING Verified 02/20/21 21:03 IN HANDS, ARMS, LEGS AND FEET pantoprazole AdvReac Intermediate n/v, Verified 02/20/21 21:03 omeprazole okay Review of Systems Constitutional Constitutional: Denies chills, Denies fatigue, Denies fever(s), Denies frequent falls, Denies lethargy and Denies weakness Eyes Eyes: Denies change in vision, Denies eye discharge, Denies irritation and Denies loss of vision ENT Ears, Nose, Mouth, and Throat: Denies change in voice, Denies dizziness, Denies neck pain, Denies sore throat and Denies throat swelling Cardiovascular Cardiovascular: Denies chest pain, Denies irregular heart rhythm, Denies lightheadedness, Denies palpitations, Denies dyspnea, Denies dyspnea on exertion and Denies orthopnea Respiratory Respiratory: Denies cough, Denies dyspnea, Denies dyspnea on exertion and Denies wheezing Gastrointestinal Gastrointestinal: Denies abdominal pain, Denies change in bowel habits, Denies diarrhea, Denies nausea and Denies vomiting Musculoskeletal Musculoskeletal: Denies neck pain and Denies numbness Integumentary/Breasts Skin/Breast: Denies pruritus, Denies erythema, Denies rash and Denies wounds Neurologic Neurologic: Denies behavioral changes, Denies confusion, Denies dizziness, Denies frequent falls, Denies loss of vision, Denies numbness and Denies weakness Psychiatric Psychiatric: Denies anxiety, Denies behavioral changes, Denies confusion, Denies depression, Denies homicidal ideation and Denies suicidal ideation Endocrine Endocrine: Denies fatigue, Denies flushing and Denies palpitations Hematologic/Lymphatic Hematologic/Lymphatic: Denies easy bruising Allergic/Immunologic Allergic/Immunologic: Denies urticaria, Denies throat swelling and Denies wheezing Patient History Medical History Alcohol dependence Anoxic brain injury Cardiomyopathy Cataracts, bilateral (2007) Chronic cough (1999) COPD (chronic obstructive pulmonary disease) Dislocated elbow (2000) Dislocated shoulder (2001) Eczema (2016) Elevated liver function tests Essential hypertension Fractures (~1963) GERD (gastroesophageal reflux disease) Hypothyroidism Impaired vision Paroxysmal atrial fibrillation Pulmonary nodule (~07/2019) Surgical History History of cataract removal with insertion of prosthetic lens History of nasal surgery (1963) History of repair of hiatal hernia Hx of hernia repair (1995) Family History Father History of arteriosclerotic cardiovascular disease History of emphysema Mother Cancer Grandfather No problems noted. Grandmother Stroke Grandfather No problems noted. Grandmother No problems noted. Social History household members: none Smoking Status: Current every day smoker Tobacco: How many years used: 22 quit status: not considering quitting second hand exposure: No alcohol intake: current substance use type: does not use Smoking Status: Current every day smoker alcohol intake frequency: 3 or more drinks per day Alcohol type: beer Substance Use Type: does not use Exam Narrative Exam Narrative: GENERAL: [65] year old patient appears stated age. Well-developed patient, in mild distress. Slight slurring of his words, GCS 15 HEAD: Atraumatic. Normocephalic. EYES: Pupils equal round and reactive. Extraocular motions intact. No scleral icterus. No injection or drainage. ENT: Nose without bleeding, purulent drainage. Throat without erythema, tonsillar hypertrophy or exudate. Airway patent. NECK: Trachea midline. Non tender CARDIOVASCULAR: Regular rate and rhythm without murmurs, gallops, or rubs. RESPIRATORY: Clear to auscultation. Breath sounds equal bilaterally. No wheezes, rales, or rhonchi. GASTROINTESTINAL: Abdomen soft, non-tender, nondistended. EXTREMITIES: No edema or joint tenderness. BACK: Nontender without deformity or crepitance. No flank tenderness. NEURO: AOx3. SKIN: No rash or erythema of visible areas Initial Vital Signs Initial Vital Signs: Vital Signs Temperature 98.0 F 02/20/21 20:59 Pulse Rate 76 02/20/21 20:59 Respiratory Rate 16 02/20/21 20:59 Blood Pressure 189/90 H 02/20/21 20:59 Pulse Oximetry 96 02/20/21 20:59 Course Orders Ordered: ED Orders 02/20/21 21:34 Complete Blood Count AUTO DIFF Stat Comprehensive Metabolic Panel Stat Vital Signs Vital signs: Vital Signs - 8 hr 02/20/21 22:01 02/20/21 22:30 02/20/21 22:55 Pulse Rate 69 68 47 L Respiratory Rate 18 Blood Pressure 145/87 H 145/89 H 188/90 H Pulse Oximetry 93 93 94 02/20/21 23:00 02/20/21 23:30 02/21/21 05:34 Pulse Rate 72 74 Respiratory Rate 19 Blood Pressure 172/84 H 147/93 H Pulse Oximetry 97 95 96 02/21/21 05:35 Pulse Rate 74 Respiratory Rate Blood Pressure 182/103 H Pulse Oximetry 93 MDM - Fall Lab Data Result diagrams: 02/20/21 21:34 02/20/21 21:34 Labs: Lab Results 02/20/21 02/20/21 Range/Units 21:34 21:34 WBC 3.3 L (4.5-11.0) X10^3/uL RBC 4.43 L (4.5-5.9) X10^6/uL Hgb 15.4 (13.5-17.5) g/dL Hct 43.8 (41-53) % MCV 98.9 (80-100) fL MCH 34.7 H (26-34) PG MCHC 35.1 (30-36) % RDW 12.6 (11.6-14.8) % Plt Count 152 (150-400) X10^3/uL Neut % (Auto) 46.0 L (50-75) % Lymph % (Auto) 36.0 (25-40) % [place] % (Auto) 9.8 (3-14) % Eos % (Auto) 4.8 H (2-4) % Baso % (Auto) 3.4 H (0-2) % Neut # (Auto) 1500 (2092-6333) /uL Lymph # (Auto) 1200 (1343-9928) /uL [place] # (Auto) 300 (0-900) /uL Eos # (Auto) 200 (0-450) /uL Baso # (Auto) 100 (0-100) /uL Sodium 133 L (137-145) mmol/L Potassium 3.9 (3.4-5.1) mmol/L Chloride 98 (98-107) mmol/L Carbon Dioxide 24 (22-32) mmol/L BUN 3 L (9-20) mg/dL Creatinine 0.54 L (0.66-1.25) mg/dL Estimated GFR > 60.0 (>60) mL/min BUN/Creatinine Ratio 5.6 L (6-22) Glucose 108 (80-110) mg/dL Calcium 8.4 (8.4-10.2) mg/dL Total Bilirubin 1.0 (0.2-1.3) mg/dL AST 168 H (17-59) IU/L ALT 88 H (<50) IU/L Alkaline Phosphatase 164 H (38-126) U/L Total Protein 7.4 (6.3-8.2) g/dL Albumin 4.1 (3.5-5.0) g/dL Globulin 3.3 (1.7-4.1) g/dL Albumin/Globulin Ratio 1.2 (1.0-2.8) Urine Dip Bedside Urine Glucose Negative Bedside Urine Bilirubin - Negative Bedside Urine Ketone - Negative Urine Specific [place] 1.015 Bedside Urine Occult Blood - Negative Bedside Urine pH 6 Bedside Urine Protein - Negative Bedside Urine Urobilinogen - Negative Bedside Urine Nitrite - Negative Bedside Urine Leukocytes - Negative Esterase MDM Narrative Medical decision making narrative: Patient observed over the course of the night and remains asymptomatic. He has no ride home and is allowed to sleep it off. He continues to be awake and alert, pleasant and able to ambulate without difficulty Discharge Plan Departure Patient Disposition: Home Clinical Impression: Alcohol abuse, Fall Instructions: How to Prevent Falls Activity Restrictions/Additional Instructions: *You have been diagnosed with [Fall, alcohol abus ] *What to do: *Please continue to take your regular medications as directed. [ ] New medication prescriptions sent to your pharmacy: [ ] [ ] New medication written as a paper prescription [x *Please follow up with your primary care provider in 2-3 days, call for an appointment. Let them know you were seen in the Emergency Department and that we ask that you be seen in follow up. We will electronically transmit a record of today's note if your PCP is in our system *If you do not have a primary care provider please contact the [facility] Resource line at [phone]. They will ask some questions about your medical history and help get you set up with a doctor in the community. *Return to Emergency Department if you should have any new, worsening or concerning symptoms, such as [fever greater than 101 F, shaking chills, worsening pain, persistent vomiting or other bothersome symptoms] Prescriptions: No Action levothyroxine [Synthroid] 75 mcg tablet 75 mcg PO QDAY Qty: 90 RF: 3 lisinopril 20 mg tablet 20 mg PO DAILY Qty: 30 RF: 3 Referrals: Jose Wyman MD [Primary Care Provider] -
--- NOTE | 2021-02-20 20:59 | DI.CT.S_ITS ---
PROCEDURE: CT HEAD/BRAIN WO CON INDICATIONS: fall, alcohol TECHNIQUE: Noncontrast 4.5 mm thick angled axial sections acquired from the foramen magnum to the vertex, with coronal and sagittal reformats. For radiation dose reduction, the following was used: automated exposure control, adjustment of mA and/or kV according to patient size. COMPARISON: [facility], CT, CT HEAD/BRAIN WO CON, 02/18/2020, 9:33. FINDINGS: Image quality: Excellent. CSF spaces: Basal cisterns are patent. No extra-axial fluid collections. The ventricles are symmetric in size and shape. Brain: No intracranial bleeds or masses. There is cerebral volume loss for age, with resultant ventricular and sulcal prominence. There are periventricular and deep white matter chronic small vessel ischemic changes. There is intracranial internal carotid artery atherosclerosis. Skull and face: Calvarium and visualized facial bones appear intact, without suspicious lesions. Sinuses: Visualized sinuses demonstrates frothy fluid within the right maxillary sinus as well as mucosal thickening. Scattered areas of mucosal thickening are noted within the remaining sinuses. IMPRESSION: 1. No acute intracranial process. 2. Moderate atrophy and chronic microvascular ischemic changes. 3. Frothy fluid within the right maxillary sinuses suggestive of sinusitis. Dictated by: Damari Mirza M.D. on 02/20/2021 at 21:23 Approved by: Damari Mirza M.D. on 02/20/2021 at 21:27
[2021-02-20 21:53] LABS: Add Manual Diff / Slide Review NO; Basophils Absolute Auto 100 /uL (0-100); Basophils Percent Auto 3.4 % (0-2); Eosinophils Absolute Auto 200 /uL (0-450); Eosinophils Percent Auto 4.8 % (2-4); Hematocrit 43.8 % (41-53); Hemoglobin 15.4 g/dL (13.5-17.5); Lymphocytes Absolute Auto 1200 /uL (1100-4500); Mean Corpuscular HGB Conc 35.1 % (30-36); Mean Corpuscular Hemoglobin 34.7 PG (26-34); Mean Corpuscular Volume 98.9 fL (80-100); Monocytes Absolute Auto 300 /uL (0-900); Monocytes Percent Auto 9.8 % (3-14); Neutrophils Absolute Auto 1500 /uL (1500-7000); Platelet Count 152 X10^3/uL (150-400); Red Blood Cell Count 4.43 X10^6/uL (4.5-5.9); Red Cell Distribution Width 12.6 % (11.6-14.8); White Blood Cell Count 3.3 X10^3/uL (4.5-11.0)
[2021-02-20 21:58] LABS: Alanine Aminotransferase 88 IU/L (<50); Albumin 4.1 g/dL (3.5-5.0); Albumin Globulin Ratio 1.2 (1.0-2.8); Alkaline Phosphatase 164 U/L (38-126); Aspartate Aminotransferase 168 IU/L (17-59); BUN Creatinine Ratio 5.6 (6-22); Blood Urea Nitrogen 3 mg/dL (9-20); Calcium 8.4 mg/dL (8.4-10.2); Carbon Dioxide 24 mmol/L (22-32); Chloride 98 mmol/L (98-107); Estimated Glomerular Filt Rate > 60.0 mL/min (>60); Globulin 3.3 g/dL (1.7-4.1); Glucose 108 mg/dL (80-110); HEMOLYSIS < 15 (0-50); Potassium 3.9 mmol/L (3.4-5.1); Sodium 133 mmol/L (137-145); Total Protein 7.4 g/dL (6.3-8.2)
[2021-02-21 05:34] VITALS: O2SAT 96
[2021-02-21 05:35] VITALS: BP 182/103; PULSE 74; O2SAT 93
== END 2021-02-21 06:06 | disposition home or self-care (01) ==
PROVIDERS: Emergency Provider Emergency Medicine; PCP Internal Medicine
DX: F10.10 Alcohol abuse, uncomplicated (principal); S09.90XA Unspecified injury of head, initial encounter; W19.XXXA Unspecified fall, initial encounter
CPT/HCPCS: 36415; 70450; 80053; 81003; 85025; 99284

== ENCOUNTER 2021-03-09 13:50 | Inpatient (IN) | payer MEDICARE, MEDICAID, SELFPAY ==
[2020-02-21 10:01] VITALS: BMI 20.8
[2020-02-23 11:45] VITALS: PULSE 67; RESP 20; O2SAT 100
[2021-03-09] VITALS (21 sets, daily range): BP systolic 112–247; BP diastolic 76–108; PULSE 72–124; RESP 16–53; TEMP 36.6; O2SAT 89–99; BMI 23.3
--- NOTE | 2021-03-09 13:54 | ED_ITS ---
HPI - Altered Mental Status General Chief Complaint: Fall Stated Complaint: found down, incont. Time Seen by Provider: 03/09/21 13:52 Source: patient and EMS Mode of arrival: EMS Limitations: altered mental status History of Present Illness HPI narrative: This is a 65-year-old male found on his bathroom floor covered in common bathroom reed cleaner. Patient a roommate contacted EMS for welfare check as he had been confused and not talking properly for the last several days. Patient was quite weak and unable to get off the floor he was found face down particularly on the right side of his bathroom floor. Patient try stay answers questions but does not really make any sense. He does have clear speech. Patient states he was at [place] recently unclear of the exact reason. There is a history of alcohol use per EMS. Patient is unable to give much history but states he has been taking pantoprazole, he does have a bag of medications but states he is not taking this. When asked about allergies he states the same medications he has been taking other medications he is allergic although this is confirmed as allergies on his medication list. He has levothyroxine lisinopril on his prior meds. Denies any pain currently. He denies any headache, no chest pain or current shortness of breath, no nausea or vomiting, no GI or urinary symptoms he did urinate himself but indicates he could get off the floor. He denies pain in his extremities. He is unsure of his last tetanus thinks it was 10 years ago. Related Data Previous Rx's Medication Instructions Recorded levothyroxine 75 mcg tablet 75 mcg PO QDAY #90 tab 06/16/20 (Synthroid) lisinopril 20 mg tablet 20 mg PO DAILY #30 tab 11/24/20 Allergies Allergy/AdvReac Type Severity Reaction Status Date / Time ciprofloxacin [From CIPRO] Allergy Severe SWELLING Verified 03/09/21 15:48 IN HANDS, ARMS, LEGS AND FEET pantoprazole AdvReac Intermediate n/v, Verified 03/09/21 14:01 omeprazole okay Review of Systems Review of Systems Narrative: Patient confused. answers negative to all questions. ROS Unobtainable: Unobtainable due to mental status/LOC Patient History Medical History Alcohol dependence Anoxic brain injury Cardiomyopathy Cataracts, bilateral (2007) Chronic cough (2000) COPD (chronic obstructive pulmonary disease) Dislocated elbow (2000) Dislocated shoulder (2002) Eczema (2017) Elevated liver function tests Essential hypertension Fractures (~1963) GERD (gastroesophageal reflux disease) Hypothyroidism Impaired vision Paroxysmal atrial fibrillation Pulmonary nodule (~07/2019) Surgical History History of cataract removal with insertion of prosthetic lens History of nasal surgery (1963) History of repair of hiatal hernia Hx of hernia repair (1995) Family History Father History of arteriosclerotic cardiovascular disease History of emphysema Mother Cancer Grandfather No problems noted. Grandmother Stroke Grandfather No problems noted. Grandmother No problems noted. Social History household members: none Smoking Status: Current every day smoker Tobacco: How many years used: 22 quit status: not considering quitting second hand exposure: No alcohol intake: current substance use type: does not use Smoking Status: Current every day smoker alcohol intake frequency: 3 or more drinks per day Alcohol type: beer Substance Use Type: does not use Exam Narrative Exam Narrative: GEN: Patient appears in mild distress. Patient has a fine powder coating of [place] bathroom reed cleaner on all of his exposed extremities and clothes. Powder removed in majority by dry method and then shower for complete removal. HEAD: No evidence of trauma, no raccoon/Khan sign. NECK: Nontender, painless range of motion, trachea midline Positive for Nexus criteria, there is no line tenderness, distracting injury, positive for altered mental status, no neuro deficit, recent EtOH. EYES: PERRLA, EOMI, no powder in patient's eyes. ENT: External inspection franchesca except for swelling of the right upper eye and lid and right side of the face, no obvious skin breakdown appreciated there is some erythema, trachea is midline, TM's are normal no hemotypanum, Nares are clear, no septal hematoma, no dental or oral injury, airway is normal and with normal occlusion, No bony tenderness RESP: Chest is nontender and has symmetric movement, no ecchymosis, breath sounds are normal no crackles, wheezes or rale, dry cough CVS: Heart sounds are normal, no murmur noted, No JVD. ABG/GI: Nontender, soft, normal bowel sounds, no distention, no organomegaly, pelvic rock is negative NEURO: Oriented to self, neuro is grossly intact, sensation and motor is normal all 4 extremities moving, cranial nerves II through XII are intact, GCS is 14 PSYCH: Normal mood and affect SKIN: Intact, warm and dry, no crepitus and without decubitus BACK: No CVA tenderness, no vertebral tenderness, no step-off's, no crepitus EXT: Atraumatic except for skin tear/abrasion on the right elbow, hips are nontender, no pedal edema, normal color and temperature, normal range of motion of extremities with normal tendon exam, 2+ pulses in all four extremities Initial Vital Signs Initial Vital Signs: Vital Signs Temperature 97.9 F 03/09/21 13:47 Pulse Rate 124 H 03/09/21 13:47 Respiratory Rate 16 03/09/21 13:47 Blood Pressure 136/104 H 03/09/21 13:47 Pulse Oximetry 97 03/09/21 13:47 Scores GCS Ostrander coma scale eye opening: Spontaneous Parth coma scale verbal response: Confused Parth coma scale motor response: Obey commands Parth coma scale total score: 14 Course Orders Ordered: ED Orders 03/09/21 13:52 XR chest 1V Stat Urinalysis and Microscopic Stat Urine Drug Screen, Rapid Stat EKG-12 Lead Stat 03/09/21 13:53 CT head/brain wo con Stat 03/09/21 14:02 CT cervical spine wo con Stat 03/09/21 14:11 Complete Blood Count AUTO DIFF Stat Comprehensive Metabolic Panel Stat Ethanol (ETOH) Stat Lactate (Lactic Acid) Stat Lipase Stat Partial Thromboplastin Time Stat Prothrombin Time INR Stat Troponin & CK Cardiac Panel Stat 03/09/21 15:15 COVID19 - ADMIT (INSTRUMENT FITTER swab/PCR) Stat Folic Acid (Folic Acid 1 Mg Tablet) 1 mg PO DAILY [facility] Lorazepam (Lorazepam 2 Mg/Ml Inj) 0 mg IV CIWAPRN PRN; Protocol PRN Reason: Alcohol Withdrawal Multivitamins (Multivitamin 1 Tablet) 1 tab PO DAILY [facility] Thiamine HCl (Thiamine 100 Mg Tablet) 100 mg PO DAILY CAILIN Stop: 03/13/21 09:01 Discontinued Medications Chlordiazepoxide HCl (Chlordiazepoxide 25 Mg Capsule) 25 mg PO NOW ONE Stop: 03/09/21 17:05 Last Admin: 03/09/21 17:07 Dose: 25 mg Documented by: Diphtheria/Tetanus/Acell Pertussis (Tet,Diph,Pertuss(Acell),Vac/Pf 0.5 Ml Syringe) 0.5 ml IM .ONCE ONE Stop: 03/09/21 13:53 Last Admin: 03/09/21 14:45 Dose: 0.5 ml Documented by: [email or web address] Haloperidol (Haloperidol 5 Mg Tablet) 5 mg PO NOW ONE Stop: 03/09/21 18:12 Sodium Chloride (Normal Saline 0.9%) 1,000 mls @ 1,000 mls/hr IV BOLUS ONE Stop: 03/09/21 14:51 Last Admin: 03/09/21 14:25 Dose: 1,000 mls/hr Documented by: [email or web address] Sodium Chloride (Normal Saline 0.9%) 1,000 mls @ 1,000 mls/hr IV BOLUS ONE Stop: 03/09/21 16:46 Last Admin: 03/09/21 16:42 Dose: 1,000 mls/hr Documented by: Lorazepam (Lorazepam 2 Mg/Ml Inj) 1 mg IV NOW ONE Stop: 03/09/21 16:33 Last Admin: 03/09/21 16:41 Dose: 1 mg Documented by: Reevaluation(s) Reevaluation #1: Recheck patient continues to be confused. His tachycardia is mildly improved after Ativan IV. Patient has not had a rapid change in his mentation so far. Consultations Consultation #1: Spoke with Dr. Wyman patient's primary care physician who states that he hospitalized and had an eventful course in the past for alcohol withdrawal, ultimately got intubated secondary to over-sedation, had a central line placed with medical this adventure resulting in central line being placed in the carotid, patient was transferred to outside facilities where it was removed watched and patient was ultimately discharged to home. This was 02/23/2020. Dr. Wyman feels patient would be best kept under the hospitalist service secondary to the having a presence here in the hospital 21/03. 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 Consultation #2: Dr. Peres, after discussion with Dr. Wyman clarify does accept patient for inpatient admission. He does ask that we give Librium 25 mg p.o., patient has had 1 mg of Ativan IV. Plan for typical CIWA protocol. Plan for fluids, monitoring status. Vital Signs Vital signs: Vital Signs - 8 hr 03/09/21 13:47 03/09/21 15:19 03/09/21 15:29 Temperature 97.9 F Pulse Rate 124 H 120 H 111 H Respiratory Rate 16 31 H Blood Pressure 136/104 H 143/99 H Pulse Oximetry 97 96 96 03/09/21 15:30 03/09/21 16:00 03/09/21 16:30 Temperature Pulse Rate 109 H 103 H 102 H Respiratory Rate 30 H 35 H 35 H Blood Pressure 152/100 H 192/108 H Pulse Oximetry 97 99 03/09/21 16:36 03/09/21 16:38 03/09/21 17:00 Temperature Pulse Rate 116 H 108 H 109 H Respiratory Rate 38 H 16 Blood Pressure 247/107 H 193/108 H 173/99 H Pulse Oximetry 98 96 96 MDM - Altered Mental Status Lab Data Result diagrams: 03/09/21 14:11 03/09/21 14:11 Labs: Lab Results 03/09/21 03/09/21 03/09/21 Range/Units 14:11 14:11 14:11 WBC 10.6 (4.5-11.0) X10^3/uL RBC 4.79 (4.5-5.9) X10^6/uL Hgb 16.5 (13.5-17.5) g/dL Hct 48.7 (41-53) % MCV 101.6 H (80-100) fL MCH 34.5 H (26-34) PG MCHC 33.9 (30-36) % RDW 12.6 (11.6-14.8) % Plt Count 230 (150-400) X10^3/uL Neut % (Auto) 83.4 H (50-75) % Lymph % (Auto) 5.6 L (25-40) % [place] % (Auto) 10.6 (3-14) % Eos % (Auto) 0.0 L (2-4) % Baso % (Auto) 0.4 (0-2) % Neut # (Auto) 8800 H (6551-5618) /uL Lymph # (Auto) 600 L (4174-9056) /uL [place] # (Auto) 1100 H (0-900) /uL Eos # (Auto) 0 (0-450) /uL Baso # (Auto) 0 (0-100) /uL PT 11.7 (10.1-12.7) SECONDS INR 1.1 (0.9-1.3) APTT 30 (26.4-36.2) SECONDS Sodium 141 (137-145) mmol/L Potassium 4.9 (3.4-5.1) mmol/L Chloride 103 (98-107) mmol/L Carbon Dioxide 26 (22-32) mmol/L BUN 20 (9-20) mg/dL Creatinine 0.87 (0.66-1.25) mg/dL Estimated GFR > 60.0 (>60) mL/min BUN/Creatinine Ratio 23.0 H (6-22) Glucose 139 H (80-110) mg/dL Lactate (0.7-2.1) mmol/L Calcium 10.2 (8.4-10.2) mg/dL Total Bilirubin 2.2 H (0.2-1.3) mg/dL AST 140 H (17-59) IU/L ALT 71 H (<50) IU/L Alkaline Phosphatase 111 (38-126) U/L Total Creatine Kinase 1183 H (55-170) U/L CK-MB (CK-2) 9.05 H (<2.37) ng/mL CK-MB (CK-2) Rel Index 0.8 L (1.5-5.0) % Troponin I 0.031 (0.01-0.034) ng/mL Total Protein 8.1 (6.3-8.2) g/dL Albumin 4.5 (3.5-5.0) g/dL Globulin 3.6 (1.7-4.1) g/dL Albumin/Globulin Ratio 1.3 (1.0-2.8) Lipase (23-300) U/L Ethyl Alcohol < 10 ( - 10) mg/dL SARS-CoV-2 (PCR) (Negative) 03/09/21 03/09/21 03/09/21 Range/Units 14:11 14:11 15:15 WBC (4.5-11.0) X10^3/uL RBC (4.5-5.9) X10^6/uL Hgb (13.5-17.5) g/dL Hct (41-53) % MCV (80-100) fL MCH (26-34) PG MCHC (30-36) % RDW (11.6-14.8) % Plt Count (150-400) X10^3/uL Neut % (Auto) (50-75) % Lymph % (Auto) (25-40) % [place] % (Auto) (3-14) % Eos % (Auto) (2-4) % Baso % (Auto) (0-2) % Neut # (Auto) (3294-4035) /uL Lymph # (Auto) (4688-2839) /uL [place] # (Auto) (0-900) /uL Eos # (Auto) (0-450) /uL Baso # (Auto) (0-100) /uL PT (10.1-12.7) SECONDS INR (0.9-1.3) APTT (26.4-36.2) SECONDS Sodium (137-145) mmol/L Potassium (3.4-5.1) mmol/L Chloride (98-107) mmol/L Carbon Dioxide (22-32) mmol/L BUN (9-20) mg/dL Creatinine (0.66-1.25) mg/dL Estimated GFR (>60) mL/min BUN/Creatinine Ratio (6-22) Glucose (80-110) mg/dL Lactate 4.5 H* (0.7-2.1) mmol/L Calcium (8.4-10.2) mg/dL Total Bilirubin (0.2-1.3) mg/dL AST (17-59) IU/L ALT (<50) IU/L Alkaline Phosphatase (38-126) U/L Total Creatine Kinase (55-170) U/L CK-MB (CK-2) (<2.37) ng/mL CK-MB (CK-2) Rel Index (1.5-5.0) % Troponin I (0.01-0.034) ng/mL Total Protein (6.3-8.2) g/dL Albumin (3.5-5.0) g/dL Globulin (1.7-4.1) g/dL Albumin/Globulin Ratio (1.0-2.8) Lipase 128 (23-300) U/L Ethyl Alcohol ( - 10) mg/dL SARS-CoV-2 (PCR) Negative (Negative) 03/09/21 Range/Units 16:35 WBC (4.5-11.0) X10^3/uL RBC (4.5-5.9) X10^6/uL Hgb (13.5-17.5) g/dL Hct (41-53) % MCV (80-100) fL MCH (26-34) PG MCHC (30-36) % RDW (11.6-14.8) % Plt Count (150-400) X10^3/uL Neut % (Auto) (50-75) % Lymph % (Auto) (25-40) % [place] % (Auto) (3-14) % Eos % (Auto) (2-4) % Baso % (Auto) (0-2) % Neut # (Auto) (5022-3558) /uL Lymph # (Auto) (5374-5020) /uL [place] # (Auto) (0-900) /uL Eos # (Auto) (0-450) /uL Baso # (Auto) (0-100) /uL PT (10.1-12.7) SECONDS INR (0.9-1.3) APTT (26.4-36.2) SECONDS Sodium (137-145) mmol/L Potassium (3.4-5.1) mmol/L Chloride (98-107) mmol/L Carbon Dioxide (22-32) mmol/L BUN (9-20) mg/dL Creatinine (0.66-1.25) mg/dL Estimated GFR (>60) mL/min BUN/Creatinine Ratio (6-22) Glucose (80-110) mg/dL Lactate 2.8 H (0.7-2.1) mmol/L Calcium (8.4-10.2) mg/dL Total Bilirubin (0.2-1.3) mg/dL AST (17-59) IU/L ALT (<50) IU/L Alkaline Phosphatase (38-126) U/L Total Creatine Kinase (55-170) U/L CK-MB (CK-2) (<2.37) ng/mL CK-MB (CK-2) Rel Index (1.5-5.0) % Troponin I (0.01-0.034) ng/mL Total Protein (6.3-8.2) g/dL Albumin (3.5-5.0) g/dL Globulin (1.7-4.1) g/dL Albumin/Globulin Ratio (1.0-2.8) Lipase (23-300) U/L Ethyl Alcohol ( - 10) mg/dL SARS-CoV-2 (PCR) (Negative) Imaging Data CT scan - head: Radiologist's Impression: [address] [id number] Scan ReportSigned Patient: Shmuel Simpson IMR#: [id number]: 4Acct:[id number]/Sex: 65 / MDate of Service: 03/09/21Loc: EDAccession Number: [id number] Procedure: CT head/brain wo con Ordering Provider: Hemalatha Hand D.O. PROCEDURE: CT HEAD/BRAIN WO CON INDICATIONS: found on ground, confusion. TECHNIQUE: Noncontrast 4.5 mm thick angled axial sections acquired from the foramen magnum to the vertex, with coronal and sagittal reformats. For radiation dose reduction, the following was used: automated exposure control, adjustment of mA and/or kV according to patient size. COMPARISON: [facility], CT, CT HEAD/BRAIN WO CON, 02/20/2021, 21:09. FINDINGS: Image quality: Excellent. CSF spaces: Patent basilar cisterns and ventricular system. No abnormal extra- axial fluid collection. Brain: There is advanced global cerebral volume loss with passive expansion of the ventricles and extra-axial spaces. No acute intracranial hemorrhage. No findin gs of mass effect or midline shift. There is advanced chronic microvascular ischemic change. There is no loss of swift-white matter differentiation to indicate recent large territory ischemia. Dense atherosclerotic calcification of the bilateral vertebral arteries and of the basilar artery. There is also atherosclerotic calcification in the carotid siphons and carotid termini extending into the origins of the M1 segments, left greater than right. Skull and face: Calvarium and visualized facial bones are intact, without suspicious lesions. Sinuses: Visualized sinuses and mastoids are clear. IMPRESSION: No acute intracranial hemorrhage. At least moderate intracranial atherosclerosis. Global cerebral volume loss and chronic microvascular ischemic changes. Dictated by: Ron Avilez M.D. on 03/09/2021 at 14:30 Approved by: Ron Avilez M.D. on 03/09/2021 at 14:33 CT - cervical spine: Radiologist's Impression: [address] [id number] Scan ReportSigned Patient: Shmuel Simpson IMR#: [id number]: 1955cct:[id number]/Sex: 65 / MDate of Service: 03/09/21Loc: EDAccession Number: [id number] Procedure: CT cervical spine wo con Ordering Provider: Hemalatha Hand D.O. PROCEDURE: CT CERVICAL SPINE WO CON INDICATIONS: found on ground, confusion. TECHNIQUE: Noncontrast 3 mm thick sections acquired from the skull base to the T4 level. Sagittal and coronal reformats were then constructed. For radiation dose reduction, the following was used: automated exposure control, adjustment of mA and/or kV according to patient size. COMPARISON: None. FINDINGS: Image quality: Excellent. Bones: No fractures or dislocations. Visualized superior ribs are intact. Soft tissues: Prevertebral soft tissues are normal in thickness. No paravertebral hematomas. No apical pneumothoraces. IMPRESSION: No CT evidence of acute traumatic cervical spine injury. Dictated by: Ron Avilez M.D. on 03/09/2021 at 14:33 Approved by: Ron Avilez M.D. on 03/09/2021 at 14:34 Chest x-ray: Radiologist's Impression: Shmuel Simpson I 65 M [address] [id number] ReportSigned Patient: Shmuel Simpson [facility]#: [id number]: 1955cct:[id number]/Sex: 65 / MDate of Service: 03/09/21Loc: EDAccession Number: [id number] Procedure: XR chest 1V Ordering Provider: Hemalatha Hand D.O. PROCEDURE: XR CHEST 1V INDICATIONS: found on ground, confusion. TECHNIQUE: One view of the chest was acquired. COMPARISON: [facility], CR, XR CHEST 1V, 02/23/2020, 10:05. FINDINGS: Surgical changes and devices: None. Lungs and pleura: Lungs are clear. No pleural effusions or pneumothorax. Mediastinum: Mediastinal contours appear normal. Heart size is normal. Bones and chest wall: No suspicious bony lesions. Overlying soft tissues appear unremarkable. IMPRESSION: No acute cardiopulmonary process demonstrated radiographically. Dictated by: Ron Avilez M.D. on 03/09/2021 at 14:34 Approved by: Ron Avilez M.D. on 03/09/2021 at 14:35 ECG Data Attestation: I personally reviewed and interpreted this ECG as follows: Prior ECG tracings: available for review Interpretation: Sinus tachycardia rate of 1 16p are 142 QRS is 78 QTC 458. No acute ST elevation depression appreciated. Nonspecific change. Patient has prior EKG from 02/17/2020 which appears fairly similar patient did have depression on V4 V5 on 02/16 EKG which is not appreciated as clearly today. [facility] Narrative Medical decision making narrative: This is a 65-year-old male comes emergency department found on his bathroom floor. Covered in bathroom reed cleaner. Patient was unable to roll himself over and had clear swelling and skin changes consistent with extended time on the floor. EMS was contacted as a welfare check by patient's neighbor. Per history from primary care patient does have a history of alcohol abuse, he does have vitals consistent with withdrawal and is confused. Head he does not have any clear neurologic deficits otherwise, head CT is negative, C-spine and chest x-ray do not show acute changes. Patient does not have any complaints currently and has clear speech. Patient's labs do show an elevated lactate which shot is improving after all L of fluids from 4.5-2.8. Elevated transaminases at 2.2 as well as his T ALT of 140 and 71, patient's total CK is 1100 with no acute renal dysfunction and troponin is at 0.03 1 with no acute EKG changes. Etoh is negative. Covid is negative. Spoke with patient's primary care service who defers admission to the hospitalist service. This was discussed with Dr. Peres ultimately accepts. Patient is receiving a 2 L of fluids. Here as well as Librium had Dr. Peres's request. Patient has been tolerating orally. Patient has continued confusion. His heart rate is mildly improved and his hypertension continues. Haldol p.o. was also ordered. Patient accepted for admission. Discharge Plan Departure Patient Disposition: Admitted As Inpatient Clinical Impression: Altered mental status, Elevated lactic acid level, Alcohol abuse with withdrawal, Elevated CK, Weakness Admit Date/Time: 03/09/21 17:05 Admit Provider: Jamison Peres
--- NOTE | 2021-03-09 14:02 | DI.CT.S_ITS ---
PROCEDURE: CT CERVICAL SPINE WO CON INDICATIONS: found on ground, confusion. TECHNIQUE: Noncontrast 3 mm thick sections acquired from the skull base to the T4 level. Sagittal and coronal reformats were then constructed. For radiation dose reduction, the following was used: automated exposure control, adjustment of mA and/or kV according to patient size. COMPARISON: None. FINDINGS: Image quality: Excellent. Bones: No fractures or dislocations. Visualized superior ribs are intact. Soft tissues: Prevertebral soft tissues are normal in thickness. No paravertebral hematomas. No apical pneumothoraces. IMPRESSION: No CT evidence of acute traumatic cervical spine injury. Dictated by: Ron Avilez M.D. on 03/09/2021 at 14:33 Approved by: Ron Avilez M.D. on 03/09/2021 at 14:34
[2021-03-09 14:23] LABS: Add Manual Diff / Slide Review NO; Basophils Absolute Auto 0 /uL (0-100); Basophils Percent Auto 0.4 % (0-2); Eosinophils Absolute Auto 0 /uL (0-450); Hematocrit 48.7 % (41-53); Hemoglobin 16.5 g/dL (13.5-17.5); Lymphocytes Absolute Auto 600 /uL (1100-4500); Lymphocytes Percent Auto 5.6 % (25-40); Mean Corpuscular HGB Conc 33.9 % (30-36); Mean Corpuscular Hemoglobin 34.5 PG (26-34); Mean Corpuscular Volume 101.6 fL (80-100); Monocytes Absolute Auto 1100 /uL (0-900); Monocytes Percent Auto 10.6 % (3-14); Neutrophils Absolute Auto 8800 /uL (1500-7000); Neutrophils Percent Auto 83.4 % (50-75); Platelet Count 230 X10^3/uL (150-400); Red Blood Cell Count 4.79 X10^6/uL (4.5-5.9); Red Cell Distribution Width 12.6 % (11.6-14.8); White Blood Cell Count 10.6 X10^3/uL (4.5-11.0)
[2021-03-09] MEDS: SODIUM CHLORIDE 0.9% 1,000 ML 1000 ML IV ×2 (14:25→16:42)
[2021-03-09 14:34] LABS: INR 1.1 (0.9-1.3); Prothrombin Time 11.7 SECONDS (10.1-12.7)
[2021-03-09 14:37] LABS: Albumin 4.5 g/dL (3.5-5.0); Albumin Globulin Ratio 1.3 (1.0-2.8); Alkaline Phosphatase 111 U/L (38-126); Aspartate Aminotransferase 140 IU/L (17-59); Bilirubin Total 2.2 mg/dL (0.2-1.3); Blood Urea Nitrogen 20 mg/dL (9-20); Calcium 10.2 mg/dL (8.4-10.2); Carbon Dioxide 26 mmol/L (22-32); Chloride 103 mmol/L (98-107); Creatine Kinase 1183 U/L (55-170); Estimated Glomerular Filt Rate > 60.0 mL/min (>60); Ethanol (ETOH) < 10 mg/dL; Globulin 3.6 g/dL (1.7-4.1); Glucose 139 mg/dL (80-110); HEMOLYSIS < 15 (0-50); Lipase 128 U/L (23-300); PTT Partial Thromboplastin Tim 30 SECONDS (26.4-36.2); Potassium 4.9 mmol/L (3.4-5.1); Sodium 141 mmol/L (137-145); Total Protein 8.1 g/dL (6.3-8.2)
[2021-03-09 14:44] LABS: Alanine Aminotransferase 71 IU/L (<50)
[2021-03-09] MEDS: TET,DIPH,PERTUSS(ACELL),VAC/PF 0.5 ML SYRINGE IM (14:45)
[2021-03-09 14:47] LABS: Troponin I 0.031 ng/mL (0.01-0.034)
[2021-03-09 14:52] LABS: CKMB % Relative Index 0.8 % (1.5-5.0); Creatine Kinase MB 9.05 ng/mL (<2.37)
[2021-03-09 15:32] LABS: Lactate (Lactic Acid) 4.5 mmol/L (0.7-2.1)
[2021-03-09 16:18] LABS: Reflexed Lactate in 2 Hours Y
[2021-03-09 16:29] LABS: COVID19 - ADMIT (NP swab/PCR) Negative (Negative)
[2021-03-09] MEDS: LORazepam 2 MG/ML INJ 1 MG IV (16:41)
[2021-03-09 16:54] LABS: Lactate 2HR (Lactic Acid Rflx) 2.8 mmol/L (0.7-2.1)
[2021-03-09] MEDS: chlordiazePOXIDE 25 MG CAPSULE PO (17:07)
[2021-03-09] MEDS: haloperidoL 5 MG TABLET PO (18:16)
[2021-03-09 19:31] LABS: Appearance Urine UA CLEAR; Bacteria Urine None Seen; Bilirubin Urine UA 1+ (NEGATIVE); Color Urine UA YELLOW; Glucose Urine UA TRACE g/dL (Negative); Ketones Urine UA 1+ (NEGATIVE); Leukocyte Esterase Urine UA NEGATIVE (NEGATIVE); Nitrite Urine UA NEGATIVE (Negative); Occult Blood Urine UA NEGATIVE (Negative); Protein Urine UA 1+ (Negative); RBC Urine None Seen (0-5/HPF)
[2021-03-09 19:49] LABS: Hyaline Casts Urine 1-5/LPF; Ictotest Urine Positive (Negative); WBC Urine 0-1/HPF (0-5/HPF)
[2021-03-09 19:50] LABS: Culture Indicated Urine Cult Not Indicated; Mucus Urine 1+ (Negative)
[2021-03-09 19:51] LABS: UR Morphine/Opiate cutoff 300 Negative (Negative); Ur Creatinine Normal (Normal); Ur Specific Gravity Normal (Normal); Urine Amphetamines Negative (Negative); Urine Barbiturates Negative (Negative); Urine Benzodiazepines Negative (Negative); Urine Cocaine Negative (Negative); Urine MDMA Negative (Negative); Urine Methadone Negative (Negative); Urine Methamphetamines Negative (Negative); Urine Oxycodone Negative (Negative); Urine Phencyclidine Negative (Negative); Urine Tetrahydrocannabinol Negative (Negative); Urine Tricyclic Antidepressant Negative (Negative); Urine pH Normal (Normal)
[2021-03-09 21:24] LABS: Ammonia (NH3) < 9 umol/L (9-30)
[2021-03-09] MEDS: MAGNESIUM SULFATE 2 GM, FOLIC ACID 1 MG, THIAMINE 100 MG, MULTIVITAMIN 10 ML in SODIUM ... IV (22:00)
--- NOTE | 2021-03-09 23:23 | P.HP_ITS ---
History of Present Illness History of Present Illness Date Patient Seen: 03/09/21 Time Patient Seen: 20:00 Chief complaint: Alcohol withdrawal, found passed out at his home Narrative: Shmuel Simpson is a 65 y.o. male with a history of alcohol abuse, tobacco user, hypothyroidism, GERD with esophagitis, and eczema and prior admissions for alcohol withdrawal was found on his bathroom floor covered in common bathroom pool cleaner. Patient's housemate contacted EMS for welfare check as he had been confused and not talking properly for the last several days. Patient was quite weak and unable to get off the floor where he was found face down particularly on the right side of his bathroom floor. Patient states is very sleepy and attempts to answer questions but does not really make any sense or is evasive. He does have clear speech. Patient states he was at [place] recently for a tube in my heart. Patient is unable to give much history, states he does not take any medications, though he told the ED provider he takes protonix. Denies any fever, sweats of chills, headache, no chest pain or current shortness of breath, no nausea or vomiting, , dysurea, diarrhea or constipation. He is aware of having been on the floor and states the right side of his lower leg is painful. Patient did not appear to be forthcoming stating he was not taking any med ications, had no health problems, knew how old his parents were, but denied they had any health problems. He declined to name a proxy or power of insurance attorney for health care. Head CT IMPRESSION: No acute intracranial hemorrhage. At least moderate intracranial atherosclerosis. Global cerebral volume loss and chronic microvascular ischemic changes. Chest xray and C-spine xray were unremarkable per the reading. Patient was afebrile, blood pressure 157/80, heart rate 80, respiratory rate 31, oxygen saturation 95% on room air, he weighs 75 kg the BMI of 20.8. WBC is unremarkable, PT INR is within normal limits, his glucose is elevated at 139, initial presenting lactate was 4.5 and is now 2.8, bilirubin is 2.2, AST 140, ALT 71, ammonia is within normal limits, total CK is 1183, CK-MB is 9.05, troponin is within normal limits, has positive bilirubin in his urine, remainder of UA is negative for UTI, but urine tox screen is negative, COVID-19 PCR is negative. Patient's PCP is Dr. Wyman who requested that we assume care of the patient's hospitalization. In review of his notes, the patient was here for alcohol withdrawal about 1 year ago. I further reviewed records from [place] where the patient had coded in the ED and [place], central line was presumably placed in his subclavian vein. The patient was resuscitated from his code and was transferred to [facility]. While over at [facility], the central line was found to be in the subclavian artery and the patient was transferred to [place] for removal of the catheter and placement of a stent and stayed there for approximately 18 or 19 days. The patient does continue to ask questions about that hospitalization and stated in earlier notes that he was angry about it. Patient History Medical History Alcohol dependence Anoxic brain injury Cardiomyopathy Cataracts, bilateral (2007) Chronic cough (1999) COPD (chronic obstructive pulmonary disease) Dislocated elbow (2000) Dislocated shoulder (2001) Eczema (2016) Elevated liver function tests Essential hypertension Fractures (~1963) GERD (gastroesophageal reflux disease) Hypothyroidism Impaired vision Paroxysmal atrial fibrillation Pulmonary nodule (~07/2019) Surgical History History of cataract removal with insertion of prosthetic lens History of nasal surgery (1963) History of repair of hiatal hernia Hx of hernia repair (1995) Family & Social History Family History Father History of arteriosclerotic cardiovascular disease History of emphysema Mother Cancer Grandfather No problems noted. Grandmother Stroke Grandfather No problems noted. Grandmother No problems noted. Social History: household members none Safety & Behavioral: Feels Safe in Current Yes Environment Been Physically Hurt or No Threatened By a Person Tobacco & Substance use: Smoking Status Current every day smoker alcohol intake current alcohol intake frequency 3 or more drinks per day Substance Use Type does not use Meds Home Medications and Allergies Home Medications Medication Instructions Recorded Confirmed Type levothyroxine 75 mcg tablet 75 mcg PO QDAY #90 tab 06/16/20 12/22/20 Rx (Synthroid) lisinopril 20 mg tablet 20 mg PO DAILY #30 tab 11/24/20 12/22/20 Rx Allergies Allergy/AdvReac Type Severity Reaction Status Date / Time [facility] Allergy Severe SWELLING Verified 03/09/21 15:48 IN HANDS, ARMS, LEGS AND FEET pantoprazole AdvReac Intermediate n/v, Verified 03/09/21 14:01 omeprazole okay Review of Systems Review of Systems ROS: Yes unobtainable due to mental status Exam Vital Signs (past 8 hours): - 03/09/21 15:29 03/09/21 15:30 03/09/21 16:00 Temperature Pulse Rate 111 H 109 H 103 H Respiratory Rate 31 H 16 16 Blood Pressure 152/100 H 192/108 H Pulse Oximetry 96 97 99 03/09/21 16:30 03/09/21 16:36 03/09/21 16:38 Temperature Pulse Rate 102 H 116 H 108 H Respiratory Rate 35 H 38 H 16 Blood Pressure 247/107 H 193/108 H Pulse Oximetry 98 96 03/09/21 17:00 03/09/21 17:30 03/09/21 18:00 Temperature Pulse Rate 109 H 101 H 105 H Respiratory Rate 16 16 Blood Pressure 173/99 H 159/103 H 152/108 H Pulse Oximetry 96 95 91 03/09/21 18:30 03/09/21 18:52 03/09/21 19:00 Temperature Pulse Rate 106 H 96 H 90 Respiratory Rate 53 H 37 H 35 H Blood Pressure 204/105 H 169/95 H 152/90 H Pulse Oximetry 89 L 98 97 03/09/21 19:30 03/09/21 19:45 03/09/21 20:10 Temperature 97.8 F Pulse Rate 93 H 85 85 Respiratory Rate 29 H 16 29 H Blood Pressure 112/76 161/94 H Pulse Oximetry 94 96 95 03/09/21 21:00 03/09/21 21:13 03/09/21 22:00 Temperature Pulse Rate 72 77 85 Respiratory Rate 24 23 26 H Blood Pressure 174/88 H 138/82 Pulse Oximetry 97 96 94 03/09/21 23:00 Temperature Pulse Rate 80 Respiratory Rate 31 H Blood Pressure 157/80 H Pulse Oximetry 95 Oxygen Delivery Method Room Air Oxygen Flow Rate 0 Narrative Exam Narrative: Gen: Alert, oriented, ill appearing 65 y.o. male, appears older than stated age, very lethargic HEENT: normocephalic, atraumatic, conjunctiva clear, sclera non-icteric, oral mucosa pink and moist Neck: supple, full ROM, no JVD, trachea is midline Resp: Lungs bilateral wheezes, non-labored breathing CV: RRR, no murmur or rubs Abd: soft, non-tender, normoactive BTs Skin: right lower leg has superficial abrasion or bright red eccymosis along most of the length of his calf appearing to be a pressure injury Neuro: Unable to stay awake during visit. Speech clear and coherent. Extremities: moves all 4 extremities, is ambulatory, negative Krish?s sign Psyche: evasive. Objective Labs Result Diagrams: 03/09/21 14:11 03/09/21 14:11 Labs: Laboratory Results - last 24 hr 03/09/21 03/09/21 03/09/21 14:11 14:11 14:11 WBC 10.6 RBC 4.79 Hgb 16.5 Hct 48.7 MCV 101.6 H MCH 34.5 H MCHC 33.9 RDW 12.6 Plt Count 230 Neut % (Auto) 83.4 H Lymph % (Auto) 5.6 L Hardeman % (Auto) 10.6 Eos % (Auto) 0.0 L Baso % (Auto) 0.4 Neut # (Auto) 8800 H Lymph # (Auto) 600 L Hardeman # (Auto) 1100 H Eos # (Auto) 0 Baso # (Auto) 0 PT 11.7 INR 1.1 APTT 30 Sodium 141 Potassium 4.9 Chloride 103 Carbon Dioxide 26 BUN 20 Creatinine 0.87 Estimated GFR > 60.0 BUN/Creatinine Ratio 23.0 H Glucose 139 H Lactate Calcium 10.2 Total Bilirubin 2.2 H AST 140 H ALT 71 H Alkaline Phosphatase 111 Ammonia Total Creatine Kinase 1183 H CK-MB (CK-2) 9.05 H CK-MB (CK-2) Rel Index 0.8 L Troponin I 0.031 Total Protein 8.1 Albumin 4.5 Globulin 3.6 Albumin/Globulin Ratio 1.3 Lipase Urine Color Urine Appearance Urine pH Ur Specific Marsing Urine Protein Urine Glucose (UA) Urine Ketones Urine Occult Blood Urine Nitrate Urine Bilirubin Ur Bilirubin Confirm Urine Urobilinogen Ur Leukocyte Esterase Urine RBC Urine WBC Urine Bacteria Hyaline Casts Urine Mucus Ur Culture Indicated? Nasal Screen MRSA (PCR) U Opiates 300ng/mL cut Ur Oxycodone Screen Urine Methadone Screen Ur Barbiturates Screen U Tricyclic Antidepress Ur Phencyclidine Scrn Ur Amphetamines Screen U Methamphetamines Scrn Ur MDMA Scrn (Ecstasy) U Benzodiazepines Scrn Urine Cocaine Screen U Marijuana (THC) Screen Ethyl Alcohol < 10 SARS-CoV-2 (PCR) 03/09/21 03/09/21 03/09/21 14:11 14:11 15:15 WBC RBC Hgb Hct MCV MCH MCHC RDW Plt Count Neut % (Auto) Lymph % (Auto) Hardeman % (Auto) Eos % (Auto) Baso % (Auto) Neut # (Auto) Lymph # (Auto) Hardeman # (Auto) Eos # (Auto) Baso # (Auto) PT INR APTT Sodium Potassium Chloride Carbon Dioxide BUN Creatinine Estimated GFR BUN/Creatinine Ratio Glucose Lactate 4.5 H* Calcium Total Bilirubin AST ALT Alkaline Phosphatase Ammonia Total Creatine Kinase CK-MB (CK-2) CK-MB (CK-2) Rel Index Troponin I Total Protein Albumin Globulin Albumin/Globulin Ratio Lipase 128 Urine Color Urine Appearance Urine pH Ur Specific Marsing Urine Protein Urine Glucose (UA) Urine Ketones Urine Occult Blood Urine Nitrate Urine Bilirubin Ur Bilirubin Confirm Urine Urobilinogen Ur Leukocyte Esterase Urine RBC Urine WBC Urine Bacteria Hyaline Casts Urine Mucus Ur Culture Indicated? Nasal Screen MRSA (PCR) U Opiates 300ng/mL cut Ur Oxycodone Screen Urine Methadone Screen Ur Barbiturates Screen U Tricyclic Antidepress Ur Phencyclidine Scrn Ur Amphetamines Screen U Methamphetamines Scrn Ur MDMA Scrn (Ecstasy) U Benzodiazepines Scrn Urine Cocaine Screen U Marijuana (THC) Screen Ethyl Alcohol SARS-CoV-2 (PCR) Negative 03/09/21 03/09/21 03/09/21 16:35 19:30 19:30 WBC RBC Hgb Hct MCV MCH MCHC RDW Plt Count Neut % (Auto) Lymph % (Auto) Hardeman % (Auto) Eos % (Auto) Baso % (Auto) Neut # (Auto) Lymph # (Auto) Hardeman # (Auto) Eos # (Auto) Baso # (Auto) PT INR APTT Sodium Potassium Chloride Carbon Dioxide BUN Creatinine Estimated GFR BUN/Creatinine Ratio Glucose Lactate 2.8 H Calcium Total Bilirubin AST ALT Alkaline Phosphatase Ammonia Total Creatine Kinase CK-MB (CK-2) CK-MB (CK-2) Rel Index Troponin I Total Protein Albumin Globulin Albumin/Globulin Ratio Lipase Urine Color Yellow Urine Appearance Clear Urine pH 6.0 Ur Specific Marsing 1.020 Urine Protein 1+ H Urine Glucose (UA) Trace H Urine Ketones 1+ H Urine Occult Blood Negative Urine Nitrate Negative Urine Bilirubin 1+ H Ur Bilirubin Confirm Positive H Urine Urobilinogen 1.0 Ur Leukocyte Esterase Negative Urine RBC None seen Urine WBC 0-1/hpf Urine Bacteria None seen Hyaline Casts 1-5/lpf Urine Mucus 1+ H Ur Culture Indicated? Cult not indicated Nasal Screen MRSA (PCR) U Opiates 300ng/mL cut Negative Ur Oxycodone Screen Negative Urine Methadone Screen Negative Ur Barbiturates Screen Negative U Tricyclic Antidepress Negative Ur Phencyclidine Scrn Negative Ur Amphetamines Screen Negative U Methamphetamines Scrn Negative Ur MDMA Scrn (Ecstasy) Negative U Benzodiazepines Scrn Negative Urine Cocaine Screen Negative U Marijuana (THC) Screen Negative Ethyl Alcohol SARS-CoV-2 (PCR) 03/09/21 03/09/21 20:15 21:02 WBC RBC Hgb Hct MCV MCH MCHC RDW Plt Count Neut % (Auto) Lymph % (Auto) Hardeman % (Auto) Eos % (Auto) Baso % (Auto) Neut # (Auto) Lymph # (Auto) Hardeman # (Auto) Eos # (Auto) Baso # (Auto) PT INR APTT Sodium Potassium Chloride Carbon Dioxide BUN Creatinine Estimated GFR BUN/Creatinine Ratio Glucose Lactate Calcium Total Bilirubin AST ALT Alkaline Phosphatase Ammonia < 9 L Total Creatine Kinase CK-MB (CK-2) CK-MB (CK-2) Rel Index Troponin I Total Protein Albumin Globulin Albumin/Globulin Ratio Lipase Urine Color Urine Appearance Urine pH Ur Specific Marsing Urine Protein Urine Glucose (UA) Urine Ketones Urine Occult Blood Urine Nitrate Urine Bilirubin Ur Bilirubin Confirm Urine Urobilinogen Ur Leukocyte Esterase Urine RBC Urine WBC Urine Bacteria Hyaline Casts Urine Mucus Ur Culture Indicated? Nasal Screen MRSA (PCR) Negative for mrsa U Opiates 300ng/mL cut Ur Oxycodone Screen Urine Methadone Screen Ur Barbiturates Screen U Tricyclic Antidepress Ur Phencyclidine Scrn Ur Amphetamines Screen U Methamphetamines Scrn Ur MDMA Scrn (Ecstasy) U Benzodiazepines Scrn Urine Cocaine Screen U Marijuana (THC) Screen Ethyl Alcohol SARS-CoV-2 (PCR) Assessment & Plan Assessment & Plan narrative: Morgan Simpson is admitted to the inpatient intensive care service for alcohol withdrawal, presumed rhabdomylitis and further monitoring of a pressure injury to the right lower calf 1. Acute alcohol withdrawal, present on admission * Patient did not have a abnormal alcohol level but does appear to be altered * CIWA protocol with IV Ativan as needed * Banana bag started for the patient and will proceed to oral folate, multivitamin, and time and in the morning 2. Rhabdomyolysis, acute, present on admission * Daily monitoring of inflammation markers 3. Stage 1-2 Pressure injury to the right lower calf, acute, present on admis luan * Monitor w/wound care as needed * Monitor for bacterial infection 4. Essential hypertension, chronic * Continue home dose of lisinopril 20 mg p.o. daily 5. Hypothyroidism, chronic * Continue home dose of levothyroxine 75 mcg p.o. daily VTE prophylaxis: Wells risk score: 1.5 Enoxaparin 40 mg subQ daily Consults: none Patient is admitted under intensive care inpatient status with expected length of stay greater than 2 midnights due to severity of presenting symptoms, risk of adverse event, and complexity of treatment plan. FEN: IV NS at 150 ml/hour, heart healthy diet, CMP and magnesium in the am. Dispo: probable discharge to home Code Status: Full code as discussed with patient, he declines to state a surrogate or POA. COVID-19 COVID-19 status: Negative Result date/Date tested (Pos, Neg/Pending): 03/09/21 Scores GCS [place] coma scale eye opening: Spontaneous Parth coma scale verbal response: Orientated Parth coma scale motor response: Obey commands Parth coma scale total score: 15 Wells' Criteria for PE Clinical signs and symptoms of DVT: No PE is #1 Dx or equally likely: No Heart rate > 100: No Immobilization at least 3 days or surg in previous 4 weeks: Yes History of PE or DVT: No Hemoptysis: No Malignancy w/Treatment within 6 months or palliative: No Wells' PE Score total: 1.5 Quality VTE Deep Vein Thrombosis/Pulmonary Embolism Present on Admission: No MIPS - Admit The patient?s Advance Care plan is not present because I confirmed today that the patient does not wish or was not able to name a surrogate decision maker or provide an Advance Care Plan.: Yes
[2021-03-10] VITALS (19 sets, daily range): BP systolic 129–186; BP diastolic 73–108; PULSE 64–86; RESP 16–38; TEMP 36.6–37.1; O2SAT 95–98; BMI 23.7
[2021-03-10] MEDS: LORazepam 2 MG/ML INJ IV ×4 (03:32→23:30)
[2021-03-10 04:45] LABS: Add Manual Diff / Slide Review NO; Basophils Absolute Auto 0 /uL (0-100); Basophils Percent Auto 0.5 % (0-2); Eosinophils Absolute Auto 0 /uL (0-450); Eosinophils Percent Auto 0.1 % (2-4); Hematocrit 39.3 % (41-53); Hemoglobin 13.3 g/dL (13.5-17.5); Lymphocytes Absolute Auto 900 /uL (1100-4500); Lymphocytes Percent Auto 12.1 % (25-40); Mean Corpuscular Hemoglobin 34.6 PG (26-34); Mean Corpuscular Volume 101.8 fL (80-100); Monocytes Absolute Auto 800 /uL (0-900); Monocytes Percent Auto 10.9 % (3-14); Neutrophils Absolute Auto 5900 /uL (1500-7000); Neutrophils Percent Auto 76.4 % (50-75); Platelet Count 159 X10^3/uL (150-400); Red Blood Cell Count 3.86 X10^6/uL (4.5-5.9); Red Cell Distribution Width 12.4 % (11.6-14.8); White Blood Cell Count 7.7 X10^3/uL (4.5-11.0)
[2021-03-10 04:54] LABS: Creatine Kinase 642 U/L (55-170)
[2021-03-10 04:55] LABS: Alanine Aminotransferase 50 IU/L (<50); Albumin 2.9 g/dL (3.5-5.0); Alkaline Phosphatase 72 U/L (38-126); Aspartate Aminotransferase 91 IU/L (17-59); BUN Creatinine Ratio 32.7 (6-22); Bilirubin Total 1.7 mg/dL (0.2-1.3); Bilirubin Unconjugated 1.2 mg/dL (0.0-1.1); Blood Urea Nitrogen 18 mg/dL (9-20); Calcium 8.3 mg/dL (8.4-10.2); Carbon Dioxide 24 mmol/L (22-32); Chloride 107 mmol/L (98-107); Estimated Glomerular Filt Rate > 60.0 mL/min (>60); Globulin 2.9 g/dL (1.7-4.1); Glucose 98 mg/dL (80-110); HEMOLYSIS < 15 (0-50); Magnesium 2.2 mg/dL (1.6-2.3); Sodium 136 mmol/L (137-145); Total Protein 5.8 g/dL (6.3-8.2)
[2021-03-10 05:10] LABS: CKMB % Relative Index 0.7 % (1.5-5.0); Creatine Kinase MB 4.25 ng/mL (<2.37)
[2021-03-10] MEDS: SODIUM CHLORIDE 0.9% 1,000 ML 150 ML IV ×3 (06:10→20:05)
--- NOTE | 2021-03-10 06:18 | PC.NURSE ---
Addendum entered by Ariadna Solomon R.N. 03/10/21 06:25: Plant Technical Specialist Note-Patient woke at 0200, A/Ox3, still little forgetful, CIWA 3-9, mostly for moderate tremors and mild restlessness while awake, medicated with 1mg IV Ativan once per protocol, effective. Stover catheter placed, urine is pink tinged. NS at 150ml/hr after Banana bag complete. Medications sent to pharmacy, wallet sent with CO Kelsea WATKINS to be placed in hospital safe. Original Note: Admit Note-Patient brought to ICU room 227 at 1945, drowsy, oriented to person, place, and situation, forgetful of date. Mild tremors, SR, BP elevated, see vital trends. Seizure pads on rails, Banana bag started.
[2021-03-10] MEDS: ENOXAPARIN 40 MG/0.4 ML SYRINGE SUBCUT (09:25)
[2021-03-10] MEDS: THIAMINE 100 MG TABLET PO (09:25)
[2021-03-10] MEDS: lisinopriL 20 MG TABLET PO (09:25)
[2021-03-10] MEDS: FOLIC ACID 1 MG TABLET PO (09:25)
[2021-03-10] MEDS: MULTIVITAMIN 1 TABLET 1 TAB PO (09:26)
[2021-03-10] MEDS: LEVOTHYROXINE 75 MCG TABLET PO (09:37)
--- NOTE | 2021-03-10 12:12 | CM.DANOTE ---
Addendum entered by Alise Nixon R.N. 03/10/21 13:04: Completed and faxed [facility] referral for this patient. Original Note: DCP/Assessment: Reviewed chart. Patient is a 65yr old male admitted to I.. with ETOH withdrawl weakness and dizziness. PCP listed is Dr. Wyman. Primary payor is 1)Medicare 2)Medicaid. DCP RN met with patient today. Pt. is alert and oriented x4 and is under seizure precautions for ETOH. RN reports CIWA scores today have been between 5-9. Patient requiring IV Ativan and PO Libirium per CWA protocol. No contact listed on demographic sheet. Pt. identified a brother in [place] as next of kin. His name is Nicko Simpson [phone]. Patient has given us permission to speak to brother about his hospital stay and any discharge plan we develop. Pt. also reports a best friend in [facility] named Kenneth Barrios who has assisted in paying for transportation in past. 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 Pt. also states he has 4 neighbors at his apartment who watch out for each other, but they aren't really friends. Pt reports that he just got back from [place] a few hours prior to this recent fall. But he has been feeling weaker and having a harder time getting around this past month. The patient does drink 9 beers and some whiskey daily. He does acknowledge that his drinking likely impacts his health. He does not wish to stop but agrees to try to reduce intake. Patient gets meals on wheels and has plenty of food. He walks to grocery store with his own shopping cart to purchase ETOH. He lives on and reports $4,000 in savings and gets $1070 monthly that he is able to live on. He has no access to transportation. His goal is to return home but is agreeable to SNF if that's necessary to get stronger. Prefers [facility] but will agree to [facility] if necessary. He also has used [facility] in past and wishes for them if there is a need for HH P: At this time unable to do assessment for d/c planning needs. We re-attempt when patient medically appropriate. INDUSTRIAL PSYCHOLOGY PROFESSOR following closely.
--- NOTE | 2021-03-10 13:08 | PC.NURSE ---
PT SCORES INITIALLY A 5 ON CIWA SCALE NO RX GIVEN- SOME SLIGHT TREMORS NOTED- BUT RIGHT AFTER LUNCH PT STARTED TO COUGH AND THEN ENDED UP VOMITING X 3 FOR TOTAL OF APPROX 100CC- HE DENIED NAUSEA AND DECLINED ANY ANTIEMETIC- UNDIGESTED FOOD NOTED - MOST RECENT CIWA 10-MEDICATED WITH 1MG IV LORAZEPAM
[2021-03-10] MEDS: chlordiazePOXIDE 25 MG CAPSULE PO ×2 (17:03→21:13)
--- NOTE | 2021-03-10 17:20 | PM.PN.1 ---
Subjective Subjective Date Patient Seen: 03/10/21 Time Patient Seen: 10:00 Interval history: Shmuel Simpson is a 65 y.o. male with a history of alcohol abuse, tobacco user, hypothyroidism, GERD with esophagitis, and eczema and prior admissions for alcohol withdrawal was found on his bathroom floor covered in common bathroom stitch cleaner. He was admitted for alcohol withdrawal. Still receiving ativan per CIWA protocol, added librium again today. Otherwise doing well, still feels weak, denies abdominal pain, nausea, vomiting. No chest pain or shortness of breath. No hallucinations. He states he had cut down drinking recently because he had not had access. He did admit to drinking a few beers over the weekend in [place], passed out shortly after arriving home he thinks. Exam Vital Signs (past 8 hours): - 03/10/21 09:25 03/10/21 09:55 03/10/21 11:56 Temperature 98.1 F Pulse Rate 84 86 73 Respiratory Rate 16 33 H Blood Pressure 150/87 H 150/87 H 184/91 H Pulse Oximetry 96 97 03/10/21 13:16 03/10/21 16:15 Temperature 97.9 F Pulse Rate 83 66 Respiratory Rate 38 H 25 H Blood Pressure 129/79 151/80 H Pulse Oximetry 96 Oxygen Delivery Method Room Air Oxygen Flow Rate 0 Narrative Exam Narrative: Gen: Alert, oriented, chronically ill appearing 65 y.o. male, appears older than stated age. No acute distress. HEENT: normocephalic, atraumatic, conjunctiva clear, sclera non-icteric, oral mucosa pink and moist Neck: supple, full ROM, no JVD, trachea is midline Resp: Lungs bilateral wheezes, non-labored breathing CV: RRR, no murmur or rubs Abd: soft, non-tender, normoactive BTs Skin: right lower leg has superficial abrasion or bright red eccymosis along most of the length of his calf appearing to be a pressure injury Neuro: Speech clear and coherent. No focal deficits, mild facial asymmetry which patient states is probably old. Extremities: no joint effusions or edema. Objective Labs Result Diagrams: 03/10/21 04:15 03/10/21 04:15 Labs: Laboratory Results - last 24 hr 03/09/21 03/09/21 03/09/21 19:30 19:30 20:15 WBC RBC Hgb Hct MCV MCH MCHC RDW Plt Count Neut % (Auto) Lymph % (Auto) [place] % (Auto) Eos % (Auto) Baso % (Auto) Neut # (Auto) Lymph # (Auto) [place] # (Auto) Eos # (Auto) Baso # (Auto) Sodium Potassium Chloride Carbon Dioxide BUN Creatinine Estimated GFR BUN/Creatinine Ratio Glucose Calcium Magnesium Total Bilirubin Conjugated Bilirubin Unconjugated Bilirubin AST ALT Alkaline Phosphatase Ammonia Total Creatine Kinase CK-MB (CK-2) CK-MB (CK-2) Rel Index Total Protein Albumin Globulin Albumin/Globulin Ratio Urine Color Yellow Urine Appearance Clear Urine pH 6.0 Ur Specific [place] 1.020 Urine Protein 1+ H Urine Glucose (UA) Trace H Urine Ketones 1+ H Urine Occult Blood Negative Urine Nitrate Negative Urine Bilirubin 1+ H Ur Bilirubin Confirm Positive H Urine Urobilinogen 1.0 Ur Leukocyte Esterase Negative Urine RBC None seen Urine WBC 0-1/hpf Urine Bacteria None seen Hyaline Casts 1-5/lpf Urine Mucus 1+ H Ur Culture Indicated? Cult not indicated Nasal Screen MRSA (PCR) Negative for mrsa U Opiates 300ng/mL cut Negative Ur Oxycodone Screen Negative Urine Methadone Screen Negative Ur Barbiturates Screen Negative U Tricyclic Antidepress Negative Ur Phencyclidine Scrn Negative Ur Amphetamines Screen Negative U Methamphetamines Scrn Negative Ur MDMA Scrn (Ecstasy) Negative U Benzodiazepines Scrn Negative Urine Cocaine Screen Negative U Marijuana (THC) Screen Negative 03/09/21 03/10/21 03/10/21 21:02 04:15 04:15 WBC 7.7 RBC 3.86 L Hgb 13.3 L Hct 39.3 L MCV 101.8 H MCH 34.6 H MCHC 34.0 RDW 12.4 Plt Count 159 Neut % (Auto) 76.4 H Lymph % (Auto) 12.1 L [place] % (Auto) 10.9 Eos % (Auto) 0.1 L Baso % (Auto) 0.5 Neut # (Auto) 5900 Lymph # (Auto) 900 L [place] # (Auto) 800 Eos # (Auto) 0 Baso # (Auto) 0 Sodium 136 L Potassium 4.0 Chloride 107 Carbon Dioxide 24 BUN 18 Creatinine 0.55 L Estimated GFR > 60.0 BUN/Creatinine Ratio 32.7 H Glucose 98 Calcium 8.3 L Magnesium 2.2 Total Bilirubin 1.7 H Conjugated Bilirubin 0.0 Unconjugated Bilirubin 1.2 H AST 91 H ALT 50 H Alkaline Phosphatase 72 Ammonia < 9 L Total Creatine Kinase CK-MB (CK-2) CK-MB (CK-2) Rel Index Total Protein 5.8 L Albumin 2.9 L Globulin 2.9 Albumin/Globulin Ratio 1.0 Urine Color Urine Appearance Urine pH Ur Specific [place] Urine Protein Urine Glucose (UA) Urine Ketones Urine Occult Blood Urine Nitrate Urine Bilirubin Ur Bilirubin Confirm Urine Urobilinogen Ur Leukocyte Esterase Urine RBC Urine WBC Urine Bacteria Hyaline Casts Urine Mucus Ur Culture Indicated? Nasal Screen MRSA (PCR) U Opiates 300ng/mL cut Ur Oxycodone Screen Urine Methadone Screen Ur Barbiturates Screen U Tricyclic Antidepress Ur Phencyclidine Scrn Ur Amphetamines Screen U Methamphetamines Scrn Ur MDMA Scrn (Ecstasy) U Benzodiazepines Scrn Urine Cocaine Screen U Marijuana (THC) Screen 03/10/21 04:15 WBC RBC Hgb Hct MCV MCH MCHC RDW Plt Count Neut % (Auto) Lymph % (Auto) [place] % (Auto) Eos % (Auto) Baso % (Auto) Neut # (Auto) Lymph # (Auto) [place] # (Auto) Eos # (Auto) Baso # (Auto) Sodium Potassium Chloride Carbon Dioxide BUN Creatinine Estimated GFR BUN/Creatinine Ratio Glucose Calcium Magnesium Total Bilirubin Conjugated Bilirubin Unconjugated Bilirubin AST ALT Alkaline Phosphatase Ammonia Total Creatine Kinase 642 H D CK-MB (CK-2) 4.25 H D CK-MB (CK-2) Rel Index 0.7 L Total Protein Albumin Globulin Albumin/Globulin Ratio Urine Color Urine Appearance Urine pH Ur Specific [place] Urine Protein Urine Glucose (UA) Urine Ketones Urine Occult Blood Urine Nitrate Urine Bilirubin Ur Bilirubin Confirm Urine Urobilinogen Ur Leukocyte Esterase Urine RBC Urine WBC Urine Bacteria Hyaline Casts Urine Mucus Ur Culture Indicated? Nasal Screen MRSA (PCR) U Opiates 300ng/mL cut Ur Oxycodone Screen Urine Methadone Screen Ur Barbiturates Screen U Tricyclic Antidepress Ur Phencyclidine Scrn Ur Amphetamines Screen U Methamphetamines Scrn Ur MDMA Scrn (Ecstasy) U Benzodiazepines Scrn Urine Cocaine Screen U Marijuana (THC) Screen [facility] Medical History Alcohol dependence Anoxic brain injury Cardiomyopathy Cataracts, bilateral (2007) Chronic cough (1999) COPD (chronic obstructive pulmonary disease) Dislocated elbow (2000) Dislocated shoulder (2001) Eczema (2017) Elevated liver function tests Essential hypertension Fractures (~1963) GERD (gastroesophageal reflux disease) Hypothyroidism Impaired vision Paroxysmal atrial fibrillation Pulmonary nodule (~07/2019) Surgical History History of cataract removal with insertion of prosthetic lens History of nasal surgery (1963) History of repair of hiatal hernia Hx of hernia repair (1995) Family History Father History of arteriosclerotic cardiovascular disease History of emphysema Mother Cancer Grandfather No problems noted. Grandmother Stroke Grandfather No problems noted. Grandmother No problems noted. Social History household members: none Smoking Status: Current every day smoker Tobacco: How many years used: 22 quit status: not considering quitting second hand exposure: No alcohol intake: current substance use type: does not use Assessment & Plan Assessment & Plan narrative: Shmuel Simpson is a 65 y.o. male with a history of alcohol abuse, tobacco user, hypothyroidism, GERD with esophagitis, and eczema and prior admissions for alcohol withdrawal was found on his bathroom floor covered in common bathroom stitch cleaner. He was admitted for alcohol withdrawal. 1. Acute alcohol withdrawal, present on admission - continue librium 25 mg TID x 3 doses. Given one dose in the ER. Continue ativan per CIWA protocol. Given decreased recent drinking according to patient and negative etoh level on admission, low belief of further progression at this time. Can move out of ICU. 2. Rhabdomyolysis, acute, present on admission - continue IV fluids, Creatinine improved from 0.87 to 0.55, meeting definition for NAVEEN. \ - PT/OT consultation. 3. Stage 1-2 Pressure injury to the right lower calf, acute, present on admission Monitor w/wound care as needed Monitor for bacterial infection 4. Essential hypertension, chronic Continue home dose of lisinopril 20 mg p.o. daily 5. Hypothyroidism, chronic Continue home dose of levothyroxine 75 mcg p.o. daily 6. NAVEEN, resolved. 7. Alcoholic hepatitis, improving - patient with elevated bilirubin, transaminase levels in 2:1 fashion on admission likely secondary to acute alcohol intake. Continue to follow. Currently improving. 8. Toxic / Metabolic encephalopathy, improving - patient initially confused in the ER, improved over time with fluids. Likely related to EtOH withdrawal or possibly rhabdomyolysis, now improved with above therapies. Dispo: pending PT/OT evaluations. Patient is weak. currently refuses transfer to rehab if needed. Currently inpatient status, no longer ICU given stability and no progression of withdrawal symptoms. Code Status: Full code as discussed with patient, he declines to state a surrogate or POA. Quality VTE Deep Vein Thrombosis/Pulmonary Embolism Present on Admission: No
[2021-03-11] VITALS (14 sets, daily range): BP systolic 164–208; BP diastolic 83–100; PULSE 57–99; RESP 22–38; TEMP 36.4–37.1; O2SAT 93–98
[2021-03-11] MEDS: SODIUM CHLORIDE 0.9% 1,000 ML 150 ML IV (02:48)
[2021-03-11] MEDS: LORazepam 2 MG/ML INJ IV ×5 (03:59→13:39)
[2021-03-11] MEDS: LEVOTHYROXINE 75 MCG TABLET PO (05:16)
[2021-03-11 05:27] LABS: Add Manual Diff / Slide Review NO; Basophils Absolute Auto 0 /uL (0-100); Basophils Percent Auto 0.7 % (0-2); Eosinophils Absolute Auto 0 /uL (0-450); Eosinophils Percent Auto 0.9 % (2-4); Hematocrit 38.1 % (41-53); Hemoglobin 13.2 g/dL (13.5-17.5); Lymphocytes Absolute Auto 1300 /uL (1100-4500); Lymphocytes Percent Auto 23.9 % (25-40); Mean Corpuscular HGB Conc 34.6 % (30-36); Mean Corpuscular Hemoglobin 34.4 PG (26-34); Mean Corpuscular Volume 99.4 fL (80-100); Monocytes Absolute Auto 500 /uL (0-900); Neutrophils Absolute Auto 3500 /uL (1500-7000); Neutrophils Percent Auto 64.5 % (50-75); Platelet Count 145 X10^3/uL (150-400); Red Blood Cell Count 3.83 X10^6/uL (4.5-5.9); Red Cell Distribution Width 12.2 % (11.6-14.8); White Blood Cell Count 5.4 X10^3/uL (4.5-11.0)
[2021-03-11 05:42] LABS: Alanine Aminotransferase 44 IU/L (<50); Albumin 2.7 g/dL (3.5-5.0); Alkaline Phosphatase 71 U/L (38-126); Aspartate Aminotransferase 80 IU/L (17-59); BUN Creatinine Ratio 14.6 (6-22); Bilirubin Total 2.1 mg/dL (0.2-1.3); Bilirubin Unconjugated 1.7 mg/dL (0.0-1.1); Blood Urea Nitrogen 6 mg/dL (9-20); Calcium 7.7 mg/dL (8.4-10.2); Carbon Dioxide 25 mmol/L (22-32); Chloride 103 mmol/L (98-107); Creatine Kinase 443 U/L (55-170); Estimated Glomerular Filt Rate > 60.0 mL/min (>60); Globulin 2.7 g/dL (1.7-4.1); Glucose 102 mg/dL (80-110); HEMOLYSIS < 15 (0-50); Magnesium 1.4 mg/dL (1.6-2.3); Potassium 3.3 mmol/L (3.4-5.1); Sodium 131 mmol/L (137-145); Total Protein 5.4 g/dL (6.3-8.2)
[2021-03-11 05:58] LABS: CKMB % Relative Index 0.4 % (1.5-5.0); Creatine Kinase MB 1.98 ng/mL (<2.37)
--- NOTE | 2021-03-11 06:30 | DI.RAD.S_ITS ---
PROCEDURE: XR CHEST 1V INDICATIONS: Possible Aspiration TECHNIQUE: One view of the chest was acquired. COMPARISON: [facility], CR, XR CHEST 1V, 03/09/2021, 14:12. FINDINGS: Surgical changes and devices: None. Lungs and pleura: There is increased patchy ill-defined airspace opacities involving the left lung base. No pleural effusions or pneumothorax. Mediastinum: Mediastinal contours appear normal. Heart size is normal. Bones and chest wall: No suspicious bony lesions. Overlying soft tissues appear unremarkable. IMPRESSION: New/increased patchy ill-defined left basilar airspace opacities which may represent developing pneumonia/aspiration. Dictated by: Brenton Sagastume M.D. on 03/11/2021 at 7:22 Approved by: Brenton Sagastume M.D. on 03/11/2021 at 7:23
--- NOTE | 2021-03-11 06:37 | PC.NURSE ---
Post Secondary Professional Note-Patient started shift oriented x3, forgetful to date, as night progressed, he became more restless and forgetful, at one point attempting to get out bed I want to go outside to smoke and later asked go get me a beer and a cigarette total 5mg IV Ativan given for CIWA 8-11. In am, he became tachypnic 40s, moist cough more persistent, SpO2 90-92%, denies distress, Urgent CXR obtained. Mg+ 1.4, K+ 3.3 reported to Yenifer DAVIS, orders obtained.
[2021-03-11] MEDS: POTASSIUM CHLORIDE IN WATER 10 MEQ/100 ML PIGGYBACK 100 MEQ IV ×4 (06:56→10:02)
[2021-03-11] MEDS: MAGNESIUM SULFATE 2 GM/50 ML PIGGYBACK IV (06:57)
[2021-03-11] MEDS: MULTIVITAMIN 1 TABLET 1 TAB PO (07:59)
[2021-03-11] MEDS: FOLIC ACID 1 MG TABLET PO (07:59)
[2021-03-11] MEDS: THIAMINE 100 MG TABLET PO (07:59)
[2021-03-11] MEDS: ENOXAPARIN 40 MG/0.4 ML SYRINGE SUBCUT (07:59)
[2021-03-11] MEDS: lisinopriL 20 MG TABLET PO ×2 (07:59→14:55)
--- NOTE | 2021-03-11 09:27 | DIET.PN ---
Dietary Progress Note RD unable to assess patient. When visiting, pt was falling asleep c chicken sausage in hand, falling asleep spilling coffee into napkin on lap. RD got pt paper cup with lid to drink coffee out of. Will try to reassess this afternoon/tomorrow am when more lucid.
--- NOTE | 2021-03-11 10:37 | PM.PN.1 ---
Subjective Subjective Date Patient Seen: 03/11/21 Time Patient Seen: 10:37 Interval history: Shmuel Simpson is a 65 y.o. 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 He was admitted for alcohol withdrawal. He required increased dosing of librium overnight, now much improved this AM. Will continue librium taper. Denies hallucinations today, ate a small amount of breakfast. Still feels quite weak. No abdominal pain, nausea, vomiting this AM. Exam Vital Signs (past 8 hours): - 03/11/21 03:29 03/11/21 04:30 03/11/21 06:05 Temperature 98.7 F Pulse Rate 62 74 71 Respiratory Rate 28 H 30 H 30 H Blood Pressure 164/88 H 164/88 H Pulse Oximetry 96 03/11/21 08:00 03/11/21 08:40 Temperature 97.5 F L Pulse Rate 80 72 Respiratory Rate 22 Blood Pressure 185/83 H 166/100 H Pulse Oximetry 96 Oxygen Delivery Method Room Air Oxygen Flow Rate 0 Narrative Exam Narrative: Gen: Alert, oriented, chronically ill appearing 65 y.o. male, appears older than stated age. No acute distress. Falls asleep easily after prolonged sentences. HEENT: normocephalic, atraumatic, conjunctiva clear, sclera non-icteric, oral mucosa pink and moist Neck: supple, full ROM, no JVD, trachea is midline Resp: Lungs bilateral wheezes, non-labored breathing CV: RRR, no murmur or rubs Abd: soft, non-tender, normoactive BTs Skin: right lower leg has superficial abrasion or bright red eccymosis along most of the length of his calf appearing to be a pressure injury Neuro: Speech slightly slurred on librium, falls asleep easily. No focal deficits, mild facial asymmetry which patient stated is probably old. Extremities: no joint effusions or edema. Objective Labs Result Diagrams: 03/11/21 04:48 03/11/21 04:48 Labs: Laboratory Results - last 24 hr 03/11/21 03/11/21 03/11/21 04:48 04:48 04:48 WBC 5.4 RBC 3.83 L Hgb 13.2 L Hct 38.1 L MCV 99.4 MCH 34.4 H MCHC 34.6 RDW 12.2 Plt Count 145 L Neut % (Auto) 64.5 Lymph % (Auto) 23.9 L [place] % (Auto) 10.0 Eos % (Auto) 0.9 L Baso % (Auto) 0.7 Neut # (Auto) 3500 Lymph # (Auto) 1300 [place] # (Auto) 500 Eos # (Auto) 0 Baso # (Auto) 0 Sodium 131 L Potassium 3.3 L Chloride 103 Carbon Dioxide 25 BUN 6 L Creatinine 0.41 L Estimated GFR > 60.0 BUN/Creatinine Ratio 14.6 Glucose 102 Calcium 7.7 L Magnesium 1.4 L Total Bilirubin 2.1 H Conjugated Bilirubin 0.0 Unconjugated Bilirubin 1.7 H AST 80 H ALT 44 Alkaline Phosphatase 71 Total Creatine Kinase 443 H CK-MB (CK-2) 1.98 CK-MB (CK-2) Rel Index 0.4 L Total Protein 5.4 L Albumin 2.7 L Globulin 2.7 Albumin/Globulin Ratio 1.0 PFSH Medical History Alcohol dependence Anoxic brain injury Cardiomyopathy Cataracts, bilateral (2007) Chronic cough (1999) COPD (chronic obstructive pulmonary disease) Dislocated elbow (2000) Dislocated shoulder (2001) Eczema (2016) Elevated liver function tests Essential hypertension Fractures (~1963) GERD (gastroesophageal reflux disease) Hypothyroidism Impaired vision Paroxysmal atrial fibrillation Pulmonary nodule (~07/2019) Surgical History History of cataract removal with insertion of prosthetic lens History of nasal surgery (1963) History of repair of hiatal hernia Hx of hernia repair (1995) Family History Father History of arteriosclerotic cardiovascular disease History of emphysema Mother Cancer Grandfather No problems noted. Grandmother Stroke Grandfather No problems noted. Grandmother No problems noted. Social History household members: none Smoking Status: Current every day smoker Tobacco: How many years used: 22 quit status: not considering quitting second hand exposure: No alcohol intake: current substance use type: does not use Assessment & Plan Assessment & Plan narrative: Shmuel Simpson is a 65 y.o. 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 He was admitted for alcohol withdrawal. 1. Acute alcohol withdrawal, present on admission - increased librium to 75 mg q6hr after worsening withdrawal symptoms overnight. will continue taper over the next couple of days. 2. Rhabdomyolysis, acute, present on admission - can stop IV fluids as CK now <500. Creatinine improved from 0.87 to 0.55, meeting definition for NAVEEN. - PT/OT consultation, can start tomorrow given worsening withdrawal overnight. 3. Stage 1-2 Pressure injury to the right lower calf, acute, present on admission Monitor w/wound care as needed Monitor for bacterial infection 4. Essential hypertension, chronic Continue home dose of lisinopril 20 mg p.o. daily 5. Hypothyroidism, chronic Continue home dose of levothyroxine 75 mcg p.o. daily 6. NAVEEN, resolved. 7. Alcoholic hepatitis, improving - patient with elevated bilirubin, transaminase levels in 2:1 fashion on admission likely secondary to acute alcohol intake. Continue to follow. 8. Toxic / Metabolic encephalopathy, improving - patient initially confused in the ER, improved over time with fluids. Likely related to EtOH withdrawal or possibly rhabdomyolysis, now improved with above therapies. Dispo: pending PT/OT evaluations. Patient is weak. Currently inpatient status, no longer ICU given stability and no progression of withdrawal symptoms. Code Status: Full code as discussed with patient, he declines to state a surrogate or POA. Quality VTE Deep Vein Thrombosis/Pulmonary Embolism Present on Admission: No
[2021-03-11] MEDS: chlordiazePOXIDE 25 MG CAPSULE 75 MG PO ×3 (11:31→23:40)
[2021-03-11 12:38] LABS: HEMOLYSIS 16 (0-50); Magnesium 1.9 mg/dL (1.6-2.3); Potassium 3.6 mmol/L (3.4-5.1)
--- NOTE | 2021-03-11 12:58 | CM.DPC ---
DCP Cont: Per MD, pt continues to be actively withdrawing from ETOH and getting sedation for CIWA symptoms and not yet stable enough for PT eval and recommendations. Overnight pt was more agitated and confused. Pt admitted with weakness and dizziness from withdrawal affects. Per discussion with pt yesterday, pt would be agreeable with either referral to [facility] if HH needed or SNF if he is not safe for home at discharge. Awaiting for pt to be more medically appropriate for PT eval to determine d/c planning needs. Plan: SW to follow for pt to be more medically appropriate to participate in PT eval towards determining possible HH vs SNF at discharge. ETOH use may be a barrier to SNF placement if needed. Ramona Andino MSW
[2021-03-11] MEDS: PHENobarbital 65 MG/ML VIAL IV (16:11)
[2021-03-11] MEDS: SODIUM CHLORIDE 0.9% 250 ML 21 ML IV (19:32)
[2021-03-12] VITALS: BP 133/69; PULSE 85; RESP 32; TEMP 36.6; O2SAT 95
[2021-03-12 04:00] VITALS: BP 144/75; PULSE 87; RESP 33; TEMP 36.7; O2SAT 98
[2021-03-12 05:14] LABS: Add Manual Diff / Slide Review NO; Basophils Absolute Auto 0 /uL (0-100); Basophils Percent Auto 0.4 % (0-2); Eosinophils Absolute Auto 0 /uL (0-450); Eosinophils Percent Auto 0.3 % (2-4); Hematocrit 42.6 % (41-53); Hemoglobin 14.7 g/dL (13.5-17.5); Lymphocytes Absolute Auto 1200 /uL (1100-4500); Mean Corpuscular HGB Conc 34.6 % (30-36); Mean Corpuscular Hemoglobin 34.7 PG (26-34); Mean Corpuscular Volume 100.2 fL (80-100); Monocytes Absolute Auto 900 /uL (0-900); Monocytes Percent Auto 10.9 % (3-14); Neutrophils Absolute Auto 6000 /uL (1500-7000); Neutrophils Percent Auto 73.4 % (50-75); Platelet Count 166 X10^3/uL (150-400); Red Blood Cell Count 4.25 X10^6/uL (4.5-5.9); Red Cell Distribution Width 12.2 % (11.6-14.8); White Blood Cell Count 8.2 X10^3/uL (4.5-11.0)
[2021-03-12 05:19] LABS: Alanine Aminotransferase 48 IU/L (<50); Albumin 3.2 g/dL (3.5-5.0); Albumin Globulin Ratio 1.1 (1.0-2.8); Alkaline Phosphatase 81 U/L (38-126); Aspartate Aminotransferase 70 IU/L (17-59); Bilirubin Total 1.6 mg/dL (0.2-1.3); Bilirubin Unconjugated 1.3 mg/dL (0.0-1.1); Blood Urea Nitrogen 6 mg/dL (9-20); Calcium 8.2 mg/dL (8.4-10.2); Carbon Dioxide 29 mmol/L (22-32); Chloride 101 mmol/L (98-107); Estimated Glomerular Filt Rate > 60.0 mL/min (>60); Glucose 104 mg/dL (80-110); HEMOLYSIS < 15 (0-50); Magnesium 1.6 mg/dL (1.6-2.3); Potassium 3.2 mmol/L (3.4-5.1); Sodium 134 mmol/L (137-145); Total Protein 6.2 g/dL (6.3-8.2)
[2021-03-12 05:50] LABS: Creatine Kinase 154 U/L (55-170)
[2021-03-12 06:06] LABS: CKMB % Relative Index 0.3 % (1.5-5.0); Creatine Kinase MB 0.51 ng/mL (<2.37)
[2021-03-12] MEDS: LEVOTHYROXINE 75 MCG TABLET PO (06:37)
[2021-03-12 07:23] VITALS: BP 183/95; PULSE 82; RESP 38; TEMP 36.1; O2SAT 98
[2021-03-12] MEDS: ENOXAPARIN 40 MG/0.4 ML SYRINGE SUBCUT (09:15)
--- NOTE | 2021-03-12 09:35 | PC.NURSE ---
Addendum entered by Mike Patel R.N. 03/12/21 13:25: Notified hospitalist of elevated BPs and that lisinopril held due pt not able to swallow. Addendum entered by Mike Patel R.N. 03/12/21 11:37: 1100- Pt placed call light on requesting water and coca cola. Sat pt bolt upright and provided oral care and suctioning. Breath sounds remain course with rhonchi. Cough remains weak, marginally stronger than previous assessment. Gave pt 1 ice chip. He began coughing a few seconds after swallowing. Pt c/o dry mouth. Provided moistened swab for comfort. Update given to hospitalist. Original Note: 0930- Called to hospitalist. Reported concerns regarding pt's ability to swallow. Pt is noted to have course rhonchi bilaterally to auscultation, RR 20s-30s, weak/ineffective moist cough, audible upper airway rhonchi. SPO2 on 2L 98%. RA trial done and SPO2 dropped to 87%. Dr. Peres instructs to hold AM meds/food and monitor.
[2021-03-12] MEDS: POTASSIUM CHLORIDE IN WATER 10 MEQ/100 ML PIGGYBACK 100 MEQ IV ×4 (11:06→15:22)
[2021-03-12] MEDS: SODIUM CHLORIDE 0.9% 250 ML 21 ML IV (11:06)
[2021-03-12 12:30] VITALS: BP 177/87; PULSE 77; RESP 39; TEMP 36.8; O2SAT 98
[2021-03-12] MEDS: ENALAPRILAT 2.5 MG/ 2 ML VIAL 0.625 MG IV ×2 (14:01→19:31)
--- NOTE | 2021-03-12 14:46 | P.PN_ITS ---
Subjective Subjective Date Patient Seen: 03/12/21 Time Patient Seen: 14:46 Interval history: Shmuel Simpson is a 65 y.o. male with a history of alcohol abuse, tobacco user, hypothyroidism, GERD with esophagitis, and eczema and prior admissions for alcohol withdrawal was found on his bathroom floor covered in common bathroom ceiling cleaner. He was admitted for alcohol withdrawal. Yesterday with probable aspiration due to difficulty swallowing due to management of his wi thdrawal. Now on some supplemental oxygen but no fever or leukocytosis. CXR with aspiration. Speech eval ordered today. There is a national shortage of librium and will hold for now for possible oversedation. He complains of weakness today, but feels pretty good today. No chest or abdominal pain, no nausea or vomiting. Exam Vital Signs (past 8 hours): - 03/12/21 07:23 03/12/21 12:30 Temperature 97.0 F L 98.3 F Pulse Rate 82 77 Respiratory Rate 38 H 39 H Blood Pressure 183/95 H 177/87 H Pulse Oximetry 98 98 Oxygen Delivery Method Nasal Cannula Oxygen Flow Rate 2 Narrative Exam Narrative: Gen: Alert, oriented, chronically ill appearing 65 y.o. male, appears older than stated age. No acute distress. Falls asleep easily after prolonged sentences. HEENT: normocephalic, atraumatic, conjunctiva clear, sclera non-icteric, oral mucosa pink and moist Neck: supple, full ROM, no JVD, trachea is midline Resp: Lungs bilateral wheezes, non-labored breathing CV: RRR, no murmur or rubs Abd: soft, non-tender, normoactive BTs Skin: right lower leg has superficial abrasion or bright red eccymosis along most of the length of his calf appearing to be a pressure injury Neuro: Speech slightly slurred on librium, falls asleep easily. No focal deficits, mild facial asymmetry which patient stated is probably old. Extremities: no joint effusions or edema. Objective Labs Result Diagrams: 03/12/21 04:41 03/12/21 04:41 Labs: Laboratory Results - last 24 hr 03/12/21 03/12/21 03/12/21 04:41 04:41 04:41 WBC 8.2 D RBC 4.25 L Hgb 14.7 Hct 42.6 MCV 100.2 H MCH 34.7 H MCHC 34.6 RDW 12.2 Plt Count 166 Neut % (Auto) 73.4 Lymph % (Auto) 15.0 L [place] % (Auto) 10.9 Eos % (Auto) 0.3 L Baso % (Auto) 0.4 Neut # (Auto) 6000 Lymph # (Auto) 1200 [place] # (Auto) 900 Eos # (Auto) 0 Baso # (Auto) 0 Sodium 134 L Potassium 3.2 L Chloride 101 Carbon Dioxide 29 BUN 6 L Creatinine 0.43 L Estimated GFR > 60.0 BUN/Creatinine Ratio 14.0 Glucose 104 Calcium 8.2 L Magnesium 1.6 Total Bilirubin 1.6 H Conjugated Bilirubin 0.0 Unconjugated Bilirubin 1.3 H AST 70 H ALT 48 Alkaline Phosphatase 81 Total Creatine Kinase 154 D CK-MB (CK-2) 0.51 D CK-MB (CK-2) Rel Index 0.3 L Total Protein 6.2 L Albumin 3.2 L Globulin 3.0 Albumin/Globulin Ratio 1.1 PFSH Medical History Alcohol dependence Anoxic brain injury Cardiomyopathy Cataracts, bilateral (2007) Chronic cough (1999) COPD (chronic obstructive pulmonary disease) Dislocated elbow (2000) Dislocated shoulder (2001) Eczema (2016) Elevated liver function tests Essential hypertension Fractures (~1963) GERD (gastroesophageal reflux disease) Hypothyroidism Impaired vision Paroxysmal atrial fibrillation Pulmonary nodule (~07/2019) Surgical History History of cataract removal with insertion of prosthetic lens History of nasal surgery (1963) History of repair of hiatal hernia Hx of hernia repair (1995) Family History Father History of arteriosclerotic cardiovascular disease History of emphysema Mother Cancer Grandfather No problems noted. Grandmother Stroke Grandfather No problems noted. Grandmother No problems noted. Social History household members: none Smoking Status: Current every day smoker Tobacco: How many years used: 22 quit status: not considering quitting second hand exposure: No alcohol intake: current substance use type: does not use Assessment & Plan Assessment & Plan narrative: Shmuel Simpson is a 65 y.o. male with a history of alcohol abuse, tobacco user, hypothyroidism, GERD with esophagitis, and eczema and prior admissions for alcohol withdrawal was found on his bathroom floor covered in common bathroom ceiling cleaner. He was admitted for alcohol withdrawal, course complicated by aspiration. 1. Acute alcohol withdrawal, present on admission - increased librium to 75 mg q6hr after worsening withdrawal symptoms, however to manage symptoms he became slightly oversedated and likely aspirated. - continue ativan per CIWA protocol, consider additional valium or phenobarb as needed if difficult to control symptoms due to swallowing difficulties and national librium shortage. 2. Acute respiratory failure with hypoxia - wean from O2 as able. 3. aspiration pneumonitis - no need for antibiotics at this time, unless febrile or new leukocytosis. Ordered for speech eval. 4. Rhabdomyolysis, acute, present on admission - can stop IV fluids as CK now <500. Creatinine improved from 0.87 to 0.55, meeting definition for NAVEEN. - PT/OT consultation, can start tomorrow given worsening withdrawal overnight. 5. Stage 1-2 Pressure injury to the right lower calf, acute, present on admission Monitor w/wound care as needed Monitor for bacterial infection 6. Essential hypertension, chronic Continue home dose of lisinopril 20 mg p.o. daily 7. Hypothyroidism, chronic Continue home dose of levothyroxine 75 mcg p.o. daily 8. NAVEEN, resolved. 9. Alcoholic hepatitis, improving - patient with elevated bilirubin, transaminase levels in 2:1 fashion on admission likely secondary to acute alcohol intake. Continue to follow. 10. Toxic / Metabolic encephalopathy, improving - patient initially confused in the ER, improved over time with fluids. Likely related to EtOH withdrawal or possibly rhabdomyolysis, now improved with above therapies. Dispo: pending PT/OT evaluations. Patient is weak. Currently inpatient status, no longer ICU given stability and no progression of withdrawal symptoms. Code Status: Full code as discussed with patient, he declines to state a surrogate or POA. Quality VTE Deep Vein Thrombosis/Pulmonary Embolism Present on Admission: No
[2021-03-12 16:00] VITALS: BP 168/100; PULSE 80; PULSE 83; RESP 35; RESP 42; TEMP 36.2; O2SAT 94; O2SAT 96
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
[2021-03-12 20:35] VITALS: BP 136/74; PULSE 88; RESP 48; TEMP 36.8; O2SAT 98
--- NOTE | 2021-03-12 21:01 | PC.NURSE ---
wounds on r leg and upper arm washed with saline and dried, left open to air. Allyvn placed to r hip over reddened blanchable area. Allyvn also placed on L Elbow.
[2021-03-13] VITALS (7 sets, daily range): BP systolic 122–179; BP diastolic 83–98; PULSE 69–90; RESP 18–38; TEMP 36.1–36.6; O2SAT 96–98
--- NOTE | 2021-03-13 | DI.RAD.S_ITS ---
PROCEDURE: FL BARIUM SWALLOW W SPEECH INDICATIONS: dysphagia, aspiration pneumonia COMPARISON: None. TECHNIQUE: Examination was conducted in conjunction with speech pathology per standard protocol. In the lateral projection, filming was performed of the patient swallowing. COMPARISON: FINDINGS: Function: The oral preparatory phase appear delayed. The subsequent oral propulsive phase, pharyngeal phase, and esophageal phase of swallowing also appear delayed with all proffered substances. There was laryngotracheal penetration demonstrated with thin liquids. A small to moderate amount of vallecular pooling persisted during the course of the study. Mild transient pooling in the piriform sinuses was also demonstrated. Morphology: No definite cricopharyngeal bar is identified. No Zenker's diverticulum. No high-grade strictures within the visualized proximal esophagus. IMPRESSION: 1. Small amount of laryngotracheal penetration demonstrated with thin liquids. Recommend correlation with speech pathology report. Dictated by: Anmol Jorgensen M.D. on 03/13/2021 at 12:34 Approved by: Anmol Jorgensen M.D. on 03/13/2021 at 12:38
[2021-03-13] MEDS: ENALAPRILAT 2.5 MG/ 2 ML VIAL 0.625 MG IV ×3 (01:37→14:15)
[2021-03-13 06:19] LABS: Add Manual Diff / Slide Review NO; Basophils Absolute Auto 100 /uL (0-100); Basophils Percent Auto 0.6 % (0-2); Eosinophils Absolute Auto 100 /uL (0-450); Eosinophils Percent Auto 1.4 % (2-4); Hematocrit 41.6 % (41-53); Hemoglobin 14.4 g/dL (13.5-17.5); Lymphocytes Absolute Auto 1500 /uL (1100-4500); Lymphocytes Percent Auto 17.6 % (25-40); Mean Corpuscular HGB Conc 34.6 % (30-36); Mean Corpuscular Hemoglobin 34.8 PG (26-34); Mean Corpuscular Volume 100.6 fL (80-100); Monocytes Absolute Auto 1100 /uL (0-900); Monocytes Percent Auto 12.9 % (3-14); Neutrophils Absolute Auto 5800 /uL (1500-7000); Neutrophils Percent Auto 67.5 % (50-75); Platelet Count 158 X10^3/uL (150-400); Red Blood Cell Count 4.13 X10^6/uL (4.5-5.9); Red Cell Distribution Width 12.3 % (11.6-14.8); White Blood Cell Count 8.5 X10^3/uL (4.5-11.0)
[2021-03-13 06:20] LABS: Magnesium 1.8 mg/dL (1.6-2.3)
[2021-03-13 06:21] LABS: Alanine Aminotransferase 37 IU/L (<50); Albumin 2.9 g/dL (3.5-5.0); Alkaline Phosphatase 78 U/L (38-126); Aspartate Aminotransferase 46 IU/L (17-59); BUN Creatinine Ratio 17.8 (6-22); Bilirubin Total 1.4 mg/dL (0.2-1.3); Blood Urea Nitrogen 8 mg/dL (9-20); Calcium 8.4 mg/dL (8.4-10.2); Carbon Dioxide 28 mmol/L (22-32); Chloride 103 mmol/L (98-107); Estimated Glomerular Filt Rate > 60.0 mL/min (>60); Globulin 2.9 g/dL (1.7-4.1); Glucose 113 mg/dL (80-110); HEMOLYSIS < 15 (0-50); Potassium 3.4 mmol/L (3.4-5.1); Sodium 133 mmol/L (137-145); Total Protein 5.8 g/dL (6.3-8.2)
[2021-03-13] MEDS: ENOXAPARIN 40 MG/0.4 ML SYRINGE SUBCUT (09:05)
[2021-03-13] MEDS: POTASSIUM CHLORIDE IN WATER 10 MEQ/100 ML PIGGYBACK 100 MEQ IV ×4 (09:06→14:13)
--- NOTE | 2021-03-13 09:24 | P.PN_ITS ---
Subjective Subjective Date Patient Seen: 03/13/21 Time Patient Seen: 08:30 Interval history: Morgan Simpson is a 65 y[address] male of Dr. Owens with a history of acute on chronic alcohol abuse and withdrawal, tobacco user, hypothyroidism, GERD with esophagitis, and eczema and prior admissions for alcohol withdrawal was found on his bathroom floor covered in common bathroom office cleaner who I admitted on 03/09. Per nursing, he is scheduled for a barium swallow evaluation for suspected aspiration. Overnight, his CIWA score was 0. She was concerned about the patient's nutritional status with an albumin of 2.9. Per nursing, he remains lethargic with bilateral rhonchi. Patient is arousable, but not conversant. Denies pain today. Exam Vital Signs (past 8 hours): - 03/13/21 04:00 03/13/21 08:00 Temperature 97.4 F L 97.9 F Pulse Rate 79 69 Respiratory Rate 32 H 34 H Blood Pressure 150/90 H 179/97 H Pulse Oximetry 97 98 Oxygen Delivery Method Room Air Oxygen Flow Rate 1 Narrative Exam Narrative: Gen: Arousable, oriented, chronically ill appearing 65 y.o. male, appears older than stated age HEENT: normocephalic, atraumatic, conjunctiva clear, sclera non-icteric, oral m [place] pink and moist Neck: supple, full ROM, no JVD, trachea is midline Resp: Lungs w/rhonchi and rales, non-labored breathing CV: RRR, no murmur or rubs Abd: soft, non-tender, normoactive BTs Skin: Healing road rash type appearance on right lateral calf, no discharge Neuro: More alert compared to admission. Speech is clear and brief. Extremities: moves all 4 extremities, is ambulatory, negative Krish?s sign Psyche: normal mood and affect. Objective Labs Result Diagrams: 03/13/21 05:05 03/13/21 05:05 Labs: Laboratory Results - last 24 hr 03/13/21 03/13/21 03/13/21 05:05 05:05 05:05 WBC 8.5 RBC 4.13 L Hgb 14.4 Hct 41.6 MCV 100.6 H MCH 34.8 H MCHC 34.6 RDW 12.3 Plt Count 158 Neut % (Auto) 67.5 Lymph % (Auto) 17.6 L [place] % (Auto) 12.9 Eos % (Auto) 1.4 L Baso % (Auto) 0.6 Neut # (Auto) 5800 Lymph # (Auto) 1500 [place] # (Auto) 1100 H Eos # (Auto) 100 Baso # (Auto) 100 Sodium 133 L Potassium 3.4 Chloride 103 Carbon Dioxide 28 BUN 8 L Creatinine 0.45 L Estimated GFR > 60.0 BUN/Creatinine Ratio 17.8 Glucose 113 H Calcium 8.4 Magnesium 1.8 Total Bilirubin 1.4 H AST 46 ALT 37 Alkaline Phosphatase 78 Total Protein 5.8 L Albumin 2.9 L Globulin 2.9 Albumin/Globulin Ratio 1.0 [facility] Medical History Alcohol dependence Anoxic brain injury Cardiomyopathy Cataracts, bilateral (2007) Chronic cough (1999) COPD (chronic obstructive pulmonary disease) Dislocated elbow (2000) Dislocated shoulder (2001) Eczema (2016) Elevated liver function tests Essential hypertension Fractures (~1963) GERD (gastroesophageal reflux disease) Hypothyroidism Impaired vision Paroxysmal atrial fibrillation Pulmonary nodule (~07/2019) Surgical History History of cataract removal with insertion of prosthetic lens History of nasal surgery (1963) History of repair of hiatal hernia Hx of hernia repair (1995) Family History Father History of arteriosclerotic cardiovascular disease History of emphysema Mother Cancer Grandfather No problems noted. Grandmother Stroke Grandfather No problems noted. Grandmother No problems noted. Social History household members: none Smoking Status: Current every day smoker Tobacco: How many years used: 22 quit status: not considering quitting second hand exposure: No alcohol intake: current substance use type: does not use Assessment & Plan Assessment & Plan narrative: 1. Acute alcohol withdrawal, present on admission - increased librium to 75 mg q6hr after worsening withdrawal symptoms, however to manage symptoms he became slightly oversedated and likely aspirated. - continue ativan per [facility] protocol, consider additional valium or phenobarb as needed if difficult to control symptoms due to swallowing difficulties and national librium shortage. - Patient appears to be stable enough to sign out to his regular provider. 2. Hypokalemia of 3.4 improved over 3.2 on 03/12 - He is ordered for a one time dose of Kcl 40 mEq IV X 1 2. Acute respiratory failure with hypoxia - wean from O2 as able. 3. aspiration pneumonitis - no need for antibiotics at this time, unless febrile or new leukocytosis. He is ordered for a barium swallow today. - Dietary consult ordered w/an albumin of 2.9 to recommend nutritional plan 4. Rhabdomyolysis, acute, present on admission - can stop IV fluids as CK now <500. Creatinine improved from 0.87 to 0.55, meeting definition for NAVEEN. - PT/OT consultation, can start tomorrow given worsening withdrawal overnight. 5. Stage 1-2 Pressure injury to the right lower calf, acute, present on admission - Monitor w/wound care as needed - Monitor for bacterial infection 6. Essential hypertension, chronic - Lisinopril held due to concerns for aspiration - On enalapril IV q 6 hours 7. Hypothyroidism, chronic - Continue home dose of levothyroxine 75 mcg p.o. daily 8. NAVEEN, resolved. 9. Alcoholic hepatitis, improving - patient with elevated bilirubin, transaminase levels in 2:1 fashion on admission likely secondary to acute alcohol intake. Continue to follow. 10. Toxic / Metabolic encephalopathy, improving - patient initially confused in the ER, improved over time with fluids. Likely related to EtOH withdrawal or possibly rhabdomyolysis, now improved with above therapies. He appears to be improving his mentation, but continues to be evasive. Quality VTE Deep Vein Thrombosis/Pulmonary Embolism Present on Admission: No
--- NOTE | 2021-03-13 10:35 | CM.DPC ---
DCP: continued: case received and discussed today in Team Rounds. Dr. Peres noted pt likely here for a few more days. He is now ready for PT/OT and these orders are placed. [employer] has been seeing pt and he is to have a barium swallow with [employer] today. He remains NPO as is having trouble with swallow. Met with pt. He remains not fully oriented to place at this time but does redirect. He tends to wander about in his conversation focusing on prior hospitals and his stays there. He patterson confirm that he lives at [facility], a large [facility] building for low income and disabled. Has elevator access. He plans to return there at d/c and at this time has no interest in a [facility] rehab/recovery stay although he is currently far from being able to care for himself. He would like HH services at d/c and documentation from ROBIN Greene shows a referral to [facility] has been made. Would anticipate that pt would need all disciplines including HOSPITALIST PHYSICIAN but at this time remains too early to say.
--- NOTE | 2021-03-13 11:22 | DIET.PN ---
Dietary Progress Note RD Note: Nutrition consult ordered for 65y M withdrawing from etoh awaiting MBBS currently on dysphagia puree/honey diet 1:1 supervision c wound to lower leg regarding concerns for nutrition adequacy. Kitchen sending ONS Ensure Enlive pudding bid to support nutrition needs while on modified texture diet. Will send ONS Az bid once more liberal fluid texture achieved.
--- NOTE | 2021-03-13 13:40 | PT.IIE ---
Current Diagnoses Alcohol dependence with withdrawal delirium (03/09/21) Surgical History (Last Reviewed 03/13/21 @ 09:46 by RYAN Barrett) History of cataract removal with insertion of prosthetic lens Medical History (Last Reviewed 03/13/21 @ 09:46 by RYAN Barrett) Alcohol dependence Anoxic brain injury Cardiomyopathy Cataracts, bilateral (2007) Chronic cough (1999) COPD (chronic obstructive pulmonary disease) Dislocated elbow (2000) Dislocated shoulder (2001) Eczema (2017) Elevated liver function tests Essential hypertension Fractures (~1963) GERD (gastroesophageal reflux disease) Hypothyroidism Impaired vision Paroxysmal atrial fibrillation Pulmonary nodule (~07/2019) Physical Therapy Inpatient Evaluation/Re-Eval M1 PT/OT-IP Prior Functional Status Start: 03/13/21 14:38 Freq: NEEDED Status: Active Protocol: Document 03/13/21 13:40 AB (Rec: 03/13/21 14:50 AB [id number]) Medical Review Prior Functional Status Medical History Reviewed Yes Communication able to make needs known Mobility and Gait pt stated that he is modified independent with all mobilities and ambulation using FWW Social History Household Members none Living Arrangements Apartment/Condo Number of Floors (Floors) One Floor Number of Stairs To Enter/Railing? elevator to 2nd level apartment Home Environment Standard Height Toilet,Tub/ Shower,Elevator Home Equipment Front Wheel Walker,Hand Held Shower,Grab Bars Near Toilet, Grab Bars In Shower M2 PT-IP Current Condition Start: 03/13/21 14:38 Freq: NEEDED Status: Active Protocol: Document 03/13/21 13:40 AB (Rec: 03/13/21 14:50 AB [id number]) Physical Therapy Current Condition Current Condition Evaluation Date 03/13/21 Treatment Diagnosis alcohol w/d; rhabdomyolysis; difficulty in walking Onset Date 03/09/21 Precautions Other Precautions falls M3 PT-IP Subjective Start: 03/13/21 14:38 Freq: NEEDED Status: Active Protocol: Document 03/13/21 13:40 AB (Rec: 03/13/21 14:50 AB [email or web address]) Subjective Physical Therapy Visit Type Type Initial Evaluation Visit Start Time 13:40 Visit Stop Time 14:15 Total Visit Minutes 35 Number of DIGITAL MEDIA DESIGNER Visits 0 Physical Therapy Visit Comments Patient Comments pt is agreeable to do PT Therapy Pain Assessment Pain Present Pain Present Denied Pain M4 PT-IP Mobility and Gait Start: 03/13/21 14:38 Freq: NEEDED Status: Active Protocol: Document 03/13/21 13:40 AB (Rec: 03/13/21 14:50 AB [id number]) PT-Bed Mobility Assessment Supine to Sit Supine to Sit Maximum Assistance,1 Person Assistance,2 Person Assistance ,Head of Bed Elevated,Bedrails PT-Transfer Assessment Sit to and From Stand Sit to and from Stand Maximum Assistance,2 Person Assistance,Use of Upper Extremities Equipment Transfer Assistive Device Gait Belt,Front Wheeled Walker Orthotic/Prosthetic Devices or Brace: No Transfers Transfer Destination Chair Transfer Technique Stand Step Pivot Transfer Ability Level of Assist 2 Person Assistance,Use of Upper Extremities Comments Mobility Comments pt completed supine to sit with HOB elevated max A x 1-2 and max cues. pt was able to sit on EOB requiring mod A for sitting balance. total A x 1 -2 for scooting to EOB. completed sit to stand max A 2 and max cues and step transfer using FWW max A x 2 and max cues. pt tends to have FWW too far forward. pt with difficulty following directions and needs increase time to respond. positioned pt on the chair. call light and table placed within reach. chair alarm on. Gait Assessment Comments Gait Comments unable at this time PT-Balance Assessment Sitting Balance and Reactions Static Sitting Balance Ability Fair Dynamic Sitting Balance Ability Poor Standing Balance and Reactions Static Standing Balance Ability Poor Dynamic Standing Balance Ability Poor Device Used FWW M5 PT-IP Objective Assessments Start: 03/13/21 14:38 Freq: NEEDED Status: Active Protocol: Document 03/13/21 13:40 AB (Rec: 03/13/21 14:50 AB [id number]) Orientation Orientation/Cognition Level of Alertness Alert Orientation Name Safety Awareness Decreased Safety Awareness Memory Description Short Term Impaired,Retirement Impaired Gross Range of Motion Lower Extremity ROM Assessment Within Functional Limits Strength Lower Extremity Strength Assessment Bilaterally Impaired Hip 3-/5 Knee 3+/5 Muscle Tone Muscle Tone WNL Yes M6 PT-IP Treatment Start: 03/13/21 14:38 Freq: NEEDED Status: Active Protocol: Document 03/13/21 13:40 AB (Rec: 03/13/21 14:50 AB [id number]) Physical Therapy Treatment Education Education Provided Safety M7 PT-IP Assessment and Plan Start: 03/13/21 14:38 Freq: NEEDED Status: Active Protocol: Document 03/13/21 13:40 AB (Rec: 03/13/21 14:50 AB [id number]) PT Summary Assessment and Plan Potential Rehabilitation Potential Fair Status of Condition at Evaluation Evolving Summary Impairments Pain,ROM,Strength,Balance, Coordination,Sensation,Tone, Cognition,Bed Mobility, Transfers,Gait,Activity Tolerance Assessment Summary pt requiring max A x 2 to total A x 2 with mobility and is unable to ambulate at this time. pt requires cues with all tasks and is very unsteady with mobility. pt will require SNF rehab to improve strength and functiona independence. Goals Bed Mobility Goal Minimal Assistance Transfer Goal Minimal Assistance,Front Wheeled Walker Gait Goal Moderate Assistance,Front Wheel Walker Gait Distance 25 Days to Meet Goals 10 Frequency of Treatment Frequency Of Treatment Once a Day Treatment Plan Physical Therapy Treatment Plan Bed Mobility Training,Transfer Training,Gait Training, Therapeutic Exercise,Balance Retraining,Discharge Planning, Hot or Cold Pack,Neuromuscular Re-ed,Coordination Retraining Precautions Other Precautions falls Recommendations To Nursing Amount of Assist Needed 2 Person Assist Discharge Recommendations PT Discharge Recommendations SNF Rehab Transportation Needs at Discharge Wheelchair/Cabulance
[2021-03-13] MEDS: FOLIC ACID 1 MG TABLET PO (14:12)
[2021-03-13] MEDS: MULTIVITAMIN 1 TABLET 1 TAB PO (14:12)
--- NOTE | 2021-03-13 14:36 | CM.DPNOTE ---
Please contact Marjorie with any updates & discharge. Jazmin Reyes CM Asst.
--- NOTE | 2021-03-13 15:07 | OT.IP.EVAL ---
Current Diagnoses Alcohol dependence with withdrawal delirium (03/09/21) Past Medical History (Last Reviewed 03/13/21 @ 09:46 by RYAN Barrett) Alcohol dependence Anoxic brain injury Cardiomyopathy Cataracts, bilateral (2007) Chronic cough (1999) COPD (chronic obstructive pulmonary disease) Dislocated elbow (2000) Dislocated shoulder (2001) Eczema (2017) Elevated liver function tests Essential hypertension Fractures (~1963) GERD (gastroesophageal reflux disease) History of nasal surgery (1963) History of repair of hiatal hernia Hx of hernia repair (1995) Hypothyroidism Impaired vision Paroxysmal atrial fibrillation Pulmonary nodule (~07/2019) Surgical History (Last Reviewed 03/13/21 @ 09:46 by RYAN Barrett) History of cataract removal with insertion of prosthetic lens History of nasal surgery (1963) History of repair of hiatal hernia Hx of hernia repair (1995) Occupational Therapy Inpatient Evaluation/Re-Eval M1 PT/OT-IP Prior Functional Status Start: 03/13/21 14:38 Freq: NEEDED Status: Active Protocol: Document 03/13/21 14:48 [facility] (Rec: 03/13/21 15:49 [facility] [id number]) Medical Review Prior Functional Status Medical History Reviewed Yes Communication able to make needs known Mobility and Gait pt stated that he is modified independent with all mobilities and ambulation using FWW Activities of Daily Living and IADL's Pt states able to do his ADl's , had meals on Wheels, only took one medication and able to pay his bills by check. Prior Functional Level (Other details) Pt admits to having frequent falls where he has to crawl on his hands and knee in order to get to a steady surface to help stand up again. Social History Household Members none Living Arrangements Apartment/Condo Number of Floors (Floors) One Floor Number of Stairs To Enter/Railing? elevator to 2nd level apartment Home Environment Standard Height Toilet,Tub/ Shower,Elevator Home Equipment Front Wheel Walker,Hand Held Shower,Grab Bars Near Toilet, Grab Bars In Shower M2 OT-IP Current Condition Start: 03/13/21 15:32 Freq: Status: Active Protocol: Document 03/13/21 14:48 [facility] (Rec: 03/13/21 15:49 [facility] [id number]) Occupational Therapy Current Condition Current Condition Evaluation Date 03/13/21 Treatment Diagnosis ETOH withdrawl, acuter respiratory failure with hypoxia, rhabodmyolysis Diagnosis Onset Date 03/09/21 M3 OT- IP Subjective and Pain Start: 03/13/21 15:32 Freq: Status: Active Protocol: Document 03/13/21 14:48 [facility] (Rec: 03/13/21 15:49 [facility] [id number]) OT- Subjective Occupational Therapy Visit Type Type Initial Evaluation Visit Start Time 14:48 Visit Stop Time 15:07 Total Visit Minutes 19 Occupational Therapy Visit Comments Patient Comments Pt agreed to work with OT. Patient/Caregiver Goals To go home. OT Pain Assessment Pain When Pain Assessed At Rest Pain Present Pain Present Pain Reported M4 OT- IP ADL's Start: 03/13/21 15:32 Freq: Status: Active Protocol: Document 03/13/21 14:48 [facility] (Rec: 03/13/21 15:49 [facility] [id number]) OT [id number] Comments OT Self-Feeding Comments NOt at meal time. OT ADL-Grooming Comments OT Grooming Comments Not performed. OT ADL-Dressing General Eval Lower Body Dressing Ability Maximum Assistance Comments OT Dressing Comments Pt able to lean forwards to take off his socks but needing assist to stephen his socks. OT ADL-Toileting General Evaluation Toileting Ability Total Assistance Comments OT Toileting Comments Stover in place. OT ADL-Bathing Comments OT Bathing Comments NOt at this time, sponge bath would be more appropriate. M5 OT- IP IADL's Start: 03/13/21 15:32 Freq: Status: Active Protocol: Document 03/13/21 14:48 [facility] (Rec: 03/13/21 15:49 [facility] [id number]) OT-Instrumental Activities of Daily Living Home Safety Awareness Awareness of Need for Assistance at Home Decreased Awareness Ability to Problem Solve Emergency Unable to Problem Solve Situations Home Safety Comments Pt not thinking well at this time. Pt not aware that he had his socks on. Medication Management Medication Management Comments Concerns for safety and independence. Money Management Money Management Comments Concerns for safety and independence. Meal Preparation Meal Preparation Comments Concerns for safety and independence. Shovel Loader Operator Shovel Loader Operator Comments Concerns for safety and independence. Driving Driving Comments Pt states no longer drives. M6 OT- IP Functional Cognition Start: 03/13/21 15:32 Freq: Status: Active Protocol: Document 03/13/21 14:48 [facility] (Rec: 03/13/21 15:49 [facility] [id number]) Cognitive Factors Limiting Selfcare Function Cognitive Ability Level of Alertness Alert,Confusional State Patient Orientation Name Attention Span Ability Capable of Focused Attention, Unable to Focus,Unable to Sustain Attention Ability to Follow Commands Able to Follow One Step Commands with Increased Time, Able to Follow One Step Commands with Repetition Memory Description Short Term Impaired,Working Impaired Safety Awareness Underestimates Need for Assistance Problem Solving Ability Needs Assist to Identify Solutions Cognitive Comments Cognitive Assessment Comments Pt alert but confused. Pt thinking that is was January 2015 . Pt not aware that he had his socks on when asked for pt to try to take off his socks. Pt keep wanting to urinate and had to be told over and over that he had a catheter in. OT- Vision and Hearing OT- Hearing Assessment OT- Hearing Assessment WFL OT- Vision Assessment Visual Acuity Glasses For Reading M7 OT- IP Mobility and Balance Start: 03/13/21 15:32 Freq: Status: Active Protocol: Document 03/13/21 14:48 [facility] (Rec: 03/13/21 15:49 [facility] [id number]) OT-Transfer Assessment Sit to and From Stand Sit to and from Stand Maximum Assistance,1 Person Assistance Comments Mobility Comments Only able to get pt to stand with MAX X 1 to FWW. OT- Balance Assessment Sitting Balance and Reactions Static Sitting Balance Ability Good Dynamic Sitting Balance Ability Fair Standing Balance and Reactions Static Standing Balance Ability Poor Dynamic Standing Balance Ability Poor Comments Other Balance Tests/Deviations/Treatment Pt heavily lean posteriorly : when up on his feet when standing with FWW and MAX AX 1 . M8 OT- IP Objective Assessments Start: 03/13/21 15:32 Freq: Status: Active Protocol: Document 03/13/21 14:48 [facility] (Rec: 03/13/21 15:49 [facility] [id number]) OT Gross Range of Motion Upper Extremity Range of Motion Assessment Bilaterally Impaired OT Strength Upper Extremity Strength Assessment Bilaterally Impaired OT- Coordination Assessment Comments Coordination Comments Decreased for use of hand to take off and put on his watch. M9 OT- IP Assessment and Plan Start: 03/13/21 15:32 Freq: Status: Active Protocol: Document 03/13/21 14:48 [facility] (Rec: 03/13/21 15:49 [facility] [id number]) OT Summary Assessment and Plan Potential Rehabilitation Potential Fair Analytic Complexity at Evaluation Moderate Summary OT Impairments Pain,Strength,Balance, Functional Cognition, Functional Mobility,Self- Feeding,Grooming,Dressing, Toileting,Bathing,Toilet Transfers,Shower Transfers, Activity Tolerance Progress Towards Goals Slow Progress due to Pain,Slow Progress due to Medical Issues,Slow Progress due to Activity Tolerance,Slow Progress due to Cognition Assessment Summary Pt MOD complexity and now needing extensive assist x2 for all needs. Pt has poor insight to his needs and insistent that he wants to go home. Pt would benefit from skilled rehab versus facility with assist. Goals Self-Feeding Goal Independent Grooming Goal Independent Dressing Goal Independent Toileting Goal Independent Bathing Goal Independent Toilet Transfer Goal Independent Shower Transfer Goal Independent Days to Meet Goals 30 Frequency of Treatment Frequency Of Treatment Once a Day Treatment Plan OT Treatment Plan ADL Training,Functional Cognition Training,Functional Mobility,Patient/Family Education,Discharge Planning Other Treatment Recommendations and Next MODA x 2 transfer to [facility] with Treatment Focus FWW. Discharge Recommendations OT Discharge Recommendations SNF Rehab Transportation Needs at Discharge Wheelchair/Cabulance
--- NOTE | 2021-03-13 15:11 | ST.SWALLOW ---
Visit Care Team Role Provider Type Jose Wyman MD Other Providers Physician Primary Care Provider Specialty: Internal Medicine Address: [address] [place] [address], [address], [place], [address] Email: [email or web address] Hemalatha Hand DO Emergency Provider Physician Referring Provider Specialty: Emergency Medicine Address: [address] [place] [address], [address] Email: [email or web address] Admit Provider Physician Attending Provider Other Providers Specialty: Internal Medicine Address: [address] [place] [address], [id number] Email: [email or web address] Barium Swallow Study [employer] Modified Barium Swallow Study Start: 03/12/21 15:52 Freq: Status: Active Protocol: Document 03/13/21 14:10 LNK (Rec: 03/13/21 14:23 LNK [id number]) Modified Barium Swallow Study Total Time Visit Start Time 11:30 Visit Stop Time 12:00 Total Visit Minutes [address] Peres Reason for Referral aspiration pneumonia Setting Setting Acute Care Patient Information Identification Type Name,ID Wristband Patient History Shmuel Simpson is a 65 y.o. male with a history of alcohol abuse, tobacco user, hypothyroidism, GERD with esophagitis, and eczema and prior admissions for alcohol withdrawal was found on his bathroom floor covered in common bathroom office cleaner. He was admitted for alcohol withdrawal. Still receiving ativan per [facility] protocol, added librium again today. Otherwise doing well, still feels weak, denies abdominal pain, nausea, vomiting. No chest pain or shortness of breath. No hallucinations. He states he had cut down drinking recently because he had not had access. He did admit to drinking a few beers over the weekend in [place], passed out shortly after arriving home he thinks. Chest x-ray yesterday indicated new/increased patchy ill-defined left basilar airspace opacities which may represent developing pneumonia /aspiration. [ End ] Subjective Observations Pt was brought to the fluoroscopy room in the fluoroscopy chair. The instructions and procedure was provided to the pt. He indicated that he understood and agreed to proceed. Patient Positioning Position View Lateral Imaging Lateral View Textures Administered Trials Presented Thin Liquid via Spoon,Thin Liquid via Cup,[place] Liquid via Spoon,[place] Liquid via Cup,Honey Liquid via Spoon, Pudding Thick Liquid via Spoon ,Dysphagia Blenderized Textures Oral Phase Source: MBSIMP (TM) (C) Bolus Specific Scoring Grid Lip Closure WFL Tongue Control During Bolus Hold WFL Bolus Prep/Mastication WFL Bolus Transport/Lingual Motion Moderate Impairment A/P Lingual Propulsion Delay Yes Oral Residue Mild Impairment Residue Clearing Mild Impairment Nasal Regurgitation No Pharyngeal Phase Source: MBSIMP (TM) (C) Bolus Specific Scoring Grid Delayed Initiation of Pharyngeal Swallow Yes: Tongue rocking observed across all trials Number of Seconds Delayed (seconds) 2-3s Soft Palate Elevation No Impairment (WNL) Tongue Base Strength/Range of Motion Mild Impairment Residue Along the Tongue Base Yes Clearance of Residue Along Tongue Base Mild Impairment Laryngeal Elevation WFL Anterior Hyoid Movement Moderate Impairment Epiglottic Range of Motion Mild Impairment Vallecular Residue Yes Clearance of Vallecular Residue Moderate Impairment Laryngeal Vestibular Closure Mild Impairment Pharyngeal Stripping Wave Mild Impairment Posterior Pharyngeal Wall Residue Yes Clearance of Posterior Pharyngeal Wall Mild Impairment Residue Upper Esophageal Sphincter Opening Moderate Impairment Residue in the Pyriform Sinuses Yes Clearance of Residue in the Pyriform Mild Impairment Sinuses Esophageal Clearance Upright Position Mild Impairment Pharyngoesophageal Backflow Observed No Additional Pharyngeal Phase Observations Premature spillage to the valeculla pre-swallow. Pooling withing the valecculla was observed across all trials. The larynx elevated but there was minimal movement forward of the hyoid, resulting in no laryngopharyngeal contact to move the complete bolus past the epiglottis, resulting in valecullar pooling. Subsequent swallows did not clear the valecullar residue. Pharyngeal pooling was observed in the valeculla, the pyriform sinuses, posterior pharyngeal wall and the base of tongue. Reduced control of the bolus through the pharynx was noted across trials. The laryngeal seal was weak, evidenced by penetration of contrast with consecutive swallows with thin and nectar thick liquids. Contrast was observed along the anterior wall of the thyroid cartilage. No overt aspiration was observed; however there was a very small amount of contrast below the vocal folds at the end of the study.Cues throat clearing was minimally effective. Puree texture was safely tolerated, but left significant pharyngeal residue . No other texture trials were conducted due to risk for residue and aspiration risk. A/P View Esophageal Observations Esophageal Function UES opening appeared to be more narrow than expected Clinical Impressions Dysphagia Type oropharyngeal dysphagia Rehabilitation Potential Good Patient Appropriate for Therapy Yes Recommendations Diet Liquids Order Honey Diet Order Dysphagia Blenderized Medication Recommendation Whole in Carrier,Crushed in Carrier Additional Dietary Needs 1:1 Assistance,Encourage to Self-Feed Aspiration Precautions Recommended Precautions Upright at 90 Degrees,Frequent Rest Periods,Small Bites/Sips ,Double Swallow,Liquids from Spoon Additional Precautions Slow presentation to the pt Treatment Plan Therapy Recommendations Inpatient Speech Therapy Compensatory Strategies Recommendations Sitting Upright (90 deg), Double Swallow,Small Bites and Sips Additional Compensatory Strategies Recline the pt's HOB NO LESS Recommended than 40 degrees to reduce risk of aspirating Short Term Goals 1) Pt's diet texture will improve to least restricted level without s/sx of aspiration 2) Base of tongue exercisers will be introduced to increase forward movement of hyoid 3) Safe swallow strategies will be introduced to the pt to reduce risk of aspiration. 40 4) Staff education for implementing safe swallow strategies. Placement Recommendation After Discharge [facility],Executive Meeting Manager Care Facility,Home with Home Health
[2021-03-14] VITALS (10 sets, daily range): BP systolic 143–175; BP diastolic 66–95; PULSE 63–96; RESP 18–30; TEMP 36.1–36.7; O2SAT 95–99
[2021-03-14 05:26] LABS: Add Manual Diff / Slide Review NO; Basophils Absolute Auto 100 /uL (0-100); Basophils Percent Auto 0.7 % (0-2); Eosinophils Absolute Auto 300 /uL (0-450); Eosinophils Percent Auto 3.3 % (2-4); Hematocrit 39.7 % (41-53); Hemoglobin 13.9 g/dL (13.5-17.5); Lymphocytes Absolute Auto 1500 /uL (1100-4500); Monocytes Absolute Auto 1100 /uL (0-900); Monocytes Percent Auto 12.9 % (3-14); Neutrophils Absolute Auto 5500 /uL (1500-7000); Neutrophils Percent Auto 65.1 % (50-75); Platelet Count 173 X10^3/uL (150-400); Red Blood Cell Count 3.96 X10^6/uL (4.5-5.9); Red Cell Distribution Width 12.4 % (11.6-14.8); White Blood Cell Count 8.5 X10^3/uL (4.5-11.0)
[2021-03-14 05:34] LABS: Alanine Aminotransferase 36 IU/L (<50); Alkaline Phosphatase 81 U/L (38-126); Aspartate Aminotransferase 42 IU/L (17-59); BUN Creatinine Ratio 18.2 (6-22); Bilirubin Total 1.3 mg/dL (0.2-1.3); Blood Urea Nitrogen 8 mg/dL (9-20); Calcium 8.4 mg/dL (8.4-10.2); Carbon Dioxide 26 mmol/L (22-32); Chloride 103 mmol/L (98-107); Estimated Glomerular Filt Rate > 60.0 mL/min (>60); Globulin 3.1 g/dL (1.7-4.1); Glucose 129 mg/dL (80-110); HEMOLYSIS < 15 (0-50); Potassium 3.6 mmol/L (3.4-5.1); Sodium 134 mmol/L (137-145); Total Protein 6.1 g/dL (6.3-8.2)
[2021-03-14] MEDS: LEVOTHYROXINE 75 MCG TABLET PO (06:46)
[2021-03-14] MEDS: FOLIC ACID 1 MG TABLET PO (09:04)
[2021-03-14] MEDS: ENOXAPARIN 40 MG/0.4 ML SYRINGE SUBCUT (09:04)
[2021-03-14] MEDS: SODIUM CHLORIDE 0.9% FLUSH 10 ML IV ×2 (09:04→21:13)
[2021-03-14] MEDS: LOSARTAN 25 MG TABLET PO (09:04)
[2021-03-14] MEDS: MULTIVITAMIN 1 TABLET 1 TAB PO (09:04)
[2021-03-14] MEDS: ALBUTEROL/IPRATROPIUM 3 ML AMPUL INH ×4 (09:58→22:03)
--- NOTE | 2021-03-14 12:06 | PT.IPTN ---
Current Diagnoses Alcohol dependence with withdrawal delirium (03/09/21) Physical Therapy Treatment Note M2 PT-IP Current Condition Start: 03/13/21 14:38 Freq: NEEDED Status: Active Protocol: Document 03/13/21 13:40 AB (Rec: 03/13/21 14:50 AB [id number]) Physical Therapy Current Condition Current Condition Evaluation Date 03/13/21 Treatment Diagnosis alcohol w/d; rhabdomyolysis; difficulty in walking Onset Date 03/09/21 Precautions Other Precautions falls M3 PT-IP Subjective Start: 03/13/21 14:38 Freq: NEEDED Status: Active Protocol: Document 03/14/21 11:53 CLB (Rec: 03/14/21 12:58 CLB [id number]) Subjective Physical Therapy Visit Type Type Treatment Note Visit Start Time 11:53 Visit Stop Time 12:06 Total Visit Minutes 23 Notes co treat with OT Number of POULTRY VACCINATOR Visits 1 Physical Therapy Visit Comments Patient Comments pt is agreeable to do PT. Pt agreed to look into SNF rehab when medically stable, just not in [place]. Therapy Pain Assessment Pain Present Pain Present Denied Pain M4 PT-IP Mobility and Gait Start: 03/13/21 14:38 Freq: NEEDED Status: Active Protocol: Document 03/14/21 11:53 CLB (Rec: 03/14/21 12:58 CLB [id number]) PT-Transfer Assessment Sit to and From Stand Sit to and from Stand Maximum Assistance,2 Person Assistance,Use of Upper Extremities Equipment Transfer Assistive Device Gait Belt,Front Wheeled Walker Orthotic/Prosthetic Devices or Brace: No Comments Mobility Comments Pt stood from chair requiring Max A x2, pt requiring Max A x2 to stay in standing postion with bent knees and flexed trunk. Pt requiring tactile cues to hold onto walker handles.Pt with increased shaking of lower and upper extremeties. Pt sat Max A x2 for safe descent. POULTRY VACCINATOR demonstrated standing position for straight legs and tucking bottom in standing. Pt then stood requiring Max A x2 with improved positioning of legs and trunk flexion. Pt ambulated Max A x2 ~3ft with verbal cues to wt shift to right and advance LLE, pt with WBOS during gait. Pt sat in chair Max A as chair follow provided during gait. Pt performed seated knee flx/ext. Pt chair alarm on, call light and all needs within reach. Gait Assessment Gait Gait Assistance Required: Maximum Assistance,2 Person Assist Distance (Feet) 3 Assistive Devices Assistive Device Gait Belt,Front Wheeled Walker Gait Deviations General Gait Pattern Decreased Stride Length, Decreased Feet Clearance, Flexed Trunk,Wide Based Gait Factors Limiting Gait Function Factors Limiting Gait Function Decreased Activity Tolerance, Decreased Strength,Difficulty Following Directions, Incoordination,Limited Range of Motion,Poor Balance,Poor Safety Awareness Comments Gait Comments see mobility comments PT-Balance Assessment Sitting Balance and Reactions Static Sitting Balance Ability Fair Dynamic Sitting Balance Ability Poor Standing Balance and Reactions Static Standing Balance Ability Poor Dynamic Standing Balance Ability Poor Device Used FWW M5 PT-IP Objective Assessments Start: 03/13/21 14:38 Freq: NEEDED Status: Active Protocol: Document 03/13/21 13:40 AB (Rec: 03/13/21 14:50 AB [id number]) Orientation Orientation/Cognition Level of Alertness Alert Orientation Name Safety Awareness Decreased Safety Awareness Memory Description Short Term Impaired,Mri Ct Tech Impaired Gross Range of Motion Lower Extremity ROM Assessment Within Functional Limits Strength Lower Extremity Strength Assessment Bilaterally Impaired Hip 3-/5 Knee 3+/5 Muscle Tone Muscle Tone WNL Yes M6 PT-IP Treatment Start: 03/13/21 14:38 Freq: NEEDED Status: Active Protocol: Document 03/14/21 11:53 CLB (Rec: 03/14/21 12:58 CLB [id number]) Physical Therapy Treatment Education Education Provided Safety M7 PT-IP Assessment and Plan Start: 03/13/21 14:38 Freq: NEEDED Status: Active Protocol: Document 03/14/21 11:53 CLB (Rec: 03/14/21 12:58 CLB [id number]) PT Summary Assessment and Plan Potential Rehabilitation Potential Fair Status of Condition at Evaluation Evolving Summary Impairments Pain,ROM,Strength,Balance, Coordination,Sensation,Tone, Cognition,Bed Mobility, Transfers,Gait,Activity Tolerance Progress Towards Goals Slow Progress due to Medical Issues,Slow Progress due to Activity Tolerance,Slow Progress - Other Assessment Summary Pt continues to require Max A x2 for all mobility. Pt able to ambulate ~3ft w/FWW/Max A x2 and chair follow. Pt continues to require verbal and tactile cues for all tasks and takes extra time for pt to process movements. Pt agreeable to consider SNF rehab as he has no one at this time who can assist him at home. Pt would benefit from SNF rehab to increase strength for independent mobility. Goals Bed Mobility Goal Minimal Assistance Transfer Goal Minimal Assistance,Front Wheeled Walker Gait Goal Moderate Assistance,Front Wheel Walker Gait Distance 25 Days to Meet Goals 10 Frequency of Treatment Frequency Of Treatment Once a Day Treatment Plan Physical Therapy Treatment Plan Bed Mobility Training,Transfer Training,Gait Training, Therapeutic Exercise,Balance Retraining,Discharge Planning, Hot or Cold Pack,Neuromuscular Re-ed,Coordination Retraining Precautions Other Precautions falls Recommendations To Nursing Amount of Assist Needed 2 Person Assist Discharge Recommendations PT Discharge Recommendations SNF Rehab Transportation Needs at Discharge Wheelchair/Cabulance
--- NOTE | 2021-03-14 12:13 | OT.IP.TRT ---
Current Diagnoses Alcohol dependence with withdrawal delirium (03/09/21) Occupational Therapy Treatment Note M2 OT-IP Current Condition Start: 03/13/21 15:32 Freq: Status: Active Protocol: Document 03/13/21 14:48 [facility] (Rec: 03/13/21 15:49 [facility] [id number]) Occupational Therapy Current Condition Current Condition Evaluation Date 03/13/21 Treatment Diagnosis ETOH withdrawl, acuter respiratory failure with hypoxia, rhabodmyolysis Diagnosis Onset Date 03/09/21 M3 OT- IP Subjective and Pain Start: 03/13/21 15:32 Freq: Status: Active Protocol: Document 03/14/21 11:52 [facility] (Rec: 03/14/21 12:25 [facility] [id number]) OT- Subjective Occupational Therapy Visit Type Type Treatment Note Visit Start Time 11:52 Visit Stop Time 12:13 Total Visit Minutes 21 Occupational Therapy Visit Comments Patient Comments Pt agreed to get up with OT / POLISHER BRASS, pt extensive assist. Patient/Caregiver Goals Pt open to going to skilled rehab. OT Pain Assessment Pain When Pain Assessed At Rest Pain Present Pain Present Denied Pain M5 OT- IP IADL's Start: 03/13/21 15:32 Freq: Status: Active Protocol: Document 03/13/21 14:48 [facility] (Rec: 03/13/21 15:49 [facility] [id number]) OT-Instrumental Activities of Daily Living Home Safety Awareness Awareness of Need for Assistance at Home Decreased Awareness Ability to Problem Solve Emergency Unable to Problem Solve Situations Home Safety Comments Pt not thinking well at this time. Pt not aware that he had his socks on. Medication Management Medication Management Comments Concerns for safety and independence. Money Management Money Management Comments Concerns for safety and independence. Meal Preparation Meal Preparation Comments Concerns for safety and independence. It Administrator It Administrator Comments Concerns for safety and independence. Driving Driving Comments Pt states no longer drives. M6 OT- IP Functional Cognition Start: 03/13/21 15:32 Freq: Status: Active Protocol: Document 03/14/21 11:52 [facility] (Rec: 03/14/21 12:25 [facility] [id number]) Cognitive Factors Limiting Selfcare Function Cognitive Ability Level of Alertness Alert Patient Orientation Name Attention Span Ability Capable of Focused Attention, Capable of Sustained Attention Ability to Follow Commands Able to Follow One Step Commands Safety Awareness Underestimates Need for Assistance Problem Solving Ability Needs Assist to Identify Solutions Cognitive Comments Cognitive Assessment Comments Pt appear to be able to think better today, therefore consider to do SLUMS with pt soon. Pt still a little slow to respond to commands. M7 OT- IP Mobility and Balance Start: 03/13/21 15:32 Freq: Status: Active Protocol: Document 03/14/21 OT-Transfer Assessment Sit to and From Stand Sit to and from Stand Maximum Assistance,2 Person Assistance Comments Mobility Comments Only able to get pt to stand with MAX X 2 to FWW. OT- Balance Assessment Sitting Balance and Reactions Static Sitting Balance Ability Good Dynamic Sitting Balance Ability Fair Standing Balance and Reactions Static Standing Balance Ability Poor Dynamic Standing Balance Ability Poor Comments Other Balance Tests/Deviations/Treatment Pt heavily lean posteriorly : when up on his feet when standing with FWW and MAX AX 2 Pt needing MAX A 2 to stand to FWW, weight shift, guide FWW and for balance in order to take a few steps. . M8 OT- IP Objective Assessments Start: 03/13/21 15:32 Freq: Status: Active Protocol: Document 03/13/21 14:48 [facility] (Rec: 03/13/21 15:49 [facility] [id number]) OT Gross Range of Motion Upper Extremity Range of Motion Assessment Bilaterally Impaired OT Strength Upper Extremity Strength Assessment Bilaterally Impaired OT- Coordination Assessment Comments Coordination Comments Decreased for use of hand to take off and put on his watch. M9 OT- IP Assessment and Plan Start: 03/13/21 15:32 Freq: Status: Active Protocol: Document 03/14/21 11:52 [facility] (Rec: 03/14/21 12:25 [facility] [id number]) OT Summary Assessment and Plan Potential Rehabilitation Potential Fair Analytic Complexity at Evaluation Moderate Summary OT Impairments Pain,Strength,Balance, Functional Cognition, Functional Mobility,Self- Feeding,Grooming,Dressing, Toileting,Bathing,Toilet Transfers,Shower Transfers, Activity Tolerance Progress Towards Goals Slow Progress due to Pain,Slow Progress due to Medical Issues,Slow Progress due to Activity Tolerance,Slow Progress due to Cognition Assessment Summary Pt needing MAX A X 2 to stand to FWW and vc to push down on FWW, straighten his legs, and assist for balance , weight shift and to guide the FWW. Pt still having difficulty to control his saliva and motor planning of movements with his hands. Pt open to skilled rehab as he realizes that he will not be able to care for himself. Goals Self-Feeding Goal Independent Grooming Goal Independent Dressing Goal Independent Toileting Goal Independent Bathing Goal Independent Toilet Transfer Goal Independent Shower Transfer Goal Independent Days to Meet Goals 30 Frequency of Treatment Frequency Of Treatment Once a Day Treatment Plan OT Treatment Plan ADL Training,Functional Cognition Training,Functional Mobility,Patient/Family Education,Discharge Planning Other Treatment Recommendations and Next MODA x 2 transfer to [facility] with Treatment Focus FWW. Discharge Recommendations OT Discharge Recommendations SNF Rehab Transportation Needs at Discharge Wheelchair/Cabulance
--- NOTE | 2021-03-14 12:31 | CM.DPC ---
Addendum entered by Tiffanie Key R.N. 03/14/21 13:50: Faxed over referrals to [facility], and [facility]. Included face sheet, H&P, speech,P.T. notes, and today's progress note. Addendum entered by Tiffanie Key R.N. 03/14/21 13:39: Grace from [facility] called back, indicated, they can't accept if he is a one to one feeder. Let her know that it is unclear at this time if he is still a one to one. Her concern is staffing, and he is a two person transfer. Let her know that patient case coordinator can continue to update her. Called [facility], and left a message on the admissions phone to see if there are any bed availabilities. Called and spoke to Jm at [facility]. She indicated that they do have beds available. Sending over referral, and will consider sending over to [facility] as well. Original Note: DCP Cont: Met with patient in his room. Introduced self and role. Was informed by P.T, and O.T, that patient is a maximum assist of two, and deemed unsafe to return home. Patient confirmed that he has a brother named Nicko, who is no help. Patient has 0 CIWA, but initially, was found down on his floor prior to admission. Initially, patient has refused to go to a skilled facility. After P.T, and O.T. spoke to patient, they indicated, he would be willing to go as long as he doesn't have to go to [place]. Spoke to patient. He was sitting up in his chair in his room. He indicated, he really doesn't want to go to a skilled facility, because he is afraid of losing his apartment. Let him know that going to a half-way facility would be temporary, until he can get strong enough to get back home. He would be able to work with P.T. at the facility. Patient in agreement. Asked him if he had MELCHOR case manger, and patient could not answer this. He was hoping for home health versus going to half-way. Called Grace at [facility]. She indicated, she does have some beds available, and would look at him. Let her know that his CIWA has been 0, and that he lives at [facility]. She will review. P: DCP will continue to work on placement. He is currently a two person transfer and deemed unsafe to go home. Tiffanie Key RN/Long Lines Operator
--- NOTE | 2021-03-14 13:20 | P.PN_ITS ---
Subjective Subjective Date Patient Seen: 03/14/21 Time Patient Seen: 08:00 Interval history: Today he is coughing and feels that he is wheezing. He has regularly smoked cigarettes prior to being admitted here. He denies shortness of breath. Exam Vital Signs (past 8 hours): - 03/14/21 08:00 03/14/21 09:59 03/14/21 12:00 Temperature 97.7 F 97.9 F Pulse Rate 82 83 81 Respiratory Rate 29 H 20 30 H Blood Pressure 162/91 H 154/90 H Pulse Oximetry 95 97 97 Oxygen Delivery Method Room Air Oxygen Flow Rate 0 Narrative Exam Narrative: Gen: chronically ill appearing, no acute distress Resp: coarse breath sounds and wheezing CV: regular rate and rhythm, no murmur or rubs Abd: soft, non-tender, normal bowel sounds Skin: multiple abrasions on skin Neuro: alert, oriented, speech is clear and brief. Extremities: moves all four extremities Psyche: normal mood and affect. Objective Labs Result Diagrams: 03/14/21 05:00 03/14/21 05:00 Labs: Laboratory Results - last 24 hr 03/14/21 03/14/21 05:00 05:00 WBC 8.5 RBC 3.96 L Hgb 13.9 Hct 39.7 L MCV 100.0 MCH 35.0 H MCHC 35.0 RDW 12.4 Plt Count 173 Neut % (Auto) 65.1 Lymph % (Auto) 18.0 L [place] % (Auto) 12.9 Eos % (Auto) 3.3 Baso % (Auto) 0.7 Neut # (Auto) 5500 Lymph # (Auto) 1500 [place] # (Auto) 1100 H Eos # (Auto) 300 Baso # (Auto) 100 Sodium 134 L Potassium 3.6 Chloride 103 Carbon Dioxide 26 BUN 8 L Creatinine 0.44 L Estimated GFR > 60.0 BUN/Creatinine Ratio 18.2 Glucose 129 H Calcium 8.4 Total Bilirubin 1.3 AST 42 ALT 36 Alkaline Phosphatase 81 Total Protein 6.1 L Albumin 3.0 L Globulin 3.1 Albumin/Globulin Ratio 1.0 [facility] Medical History Alcohol dependence Anoxic brain injury Cardiomyopathy Cataracts, bilateral (2007) Chronic cough (1999) COPD (chronic obstructive pulmonary disease) Dislocated elbow (2000) Dislocated shoulder (2002) Eczema (2017) Elevated liver function tests Essential hypertension Fractures (~1963) GERD (gastroesophageal reflux disease) Hypothyroidism Impaired vision Paroxysmal atrial fibrillation Pulmonary nodule (~07/2019) Surgical History History of cataract removal with insertion of prosthetic lens History of nasal surgery (1963) History of repair of hiatal hernia Hx of hernia repair (1995) Family History Father History of arteriosclerotic cardiovascular disease History of emphysema Mother Cancer Grandfather No problems noted. Grandmother Stroke Grandfather No problems noted. Grandmother No problems noted. Social History household members: none Smoking Status: Current every day smoker Tobacco: How many years used: 22 quit status: not considering quitting second hand exposure: No alcohol intake: current substance use type: does not use Assessment & Plan Assessment & Plan narrative: Mr. Simpson was admitted with alcohol withdrawal 1. Acute alcohol withdrawal, present on admission - increased librium to 75 mg q6hr after worsening withdrawal symptoms, however to manage symptoms he became slightly oversedated and likely aspirated, librium now stopped - continue ativan per CIWA protocol, consider additional valium or phenobarb as needed if difficult to control symptoms due to swallowing difficulties and national librium shortage. - discuss transfer back to PCP 2. Hypokalemia, resolved 3. Acute respiratory failure with hypoxia, resolved - wean from O2 as able. 4. aspiration pneumonitis - no need for antibiotics at this time, unless febrile or new leukocytosis - no definitive aspiration on barium swallow, but did have laryngeal penetration - Dietary consult ordered w/an albumin of 2.9 to recommend nutritional plan - add nebulizers as has smoking history and is coughing 5. Rhabdomyolysis with NAVEEN, acute, resolved - can stop IV fluids as CK now <500. Creatinine improved from 0.87 to 0.55, meeting definition for NAVEEN. - PT/OT consultation, can start tomorrow given worsening withdrawal overnight. 6. Stage 1-2 Pressure injury to the right lower calf, acute, present on admission - Monitor w/wound care as needed - Monitor for bacterial infection 7. Essential hypertension, chronic - Lisinopril held due to concerns for aspiration - On enalapril IV q 6 hours 8. Hypothyroidism, chronic - Continue home dose of levothyroxine 75 mcg p.o. daily 9. Alcoholic hepatitis, improving - patient with elevated bilirubin, transaminase levels in 2:1 fashion on admission likely secondary to acute alcohol intake. Continue to follow. 10. Toxic / Metabolic encephalopathy, improving - patient initially confused in the ER, improved over time with fluids. Likely related to EtOH withdrawal or possibly rhabdomyolysis, now improved with above therapies. He appears to be improving his mentation, but continues to be evasive. Quality VTE Deep Vein Thrombosis/Pulmonary Embolism Present on Admission: No
--- NOTE | 2021-03-14 13:23 | ST.IPDYTX ---
Visit Care Team Role Provider Type Jose Wyman MD Other Providers Physician Primary Care Provider Specialty: Internal Medicine Address: [address] [place] [address], [address], [place], [address] Email: [email or web address] Hand DO Emergency Provider Physician Referring Provider Specialty: Emergency Medicine Address: [address] [place] [address], [id number] Email: [email or web address] Admit Provider Physician Attending Provider Other Providers Specialty: Internal Medicine Address: [address] [place] [address], [id number] Email: [email or web address] TOPOLOGY PROFESSOR Dysphagia Treatment TOPOLOGY PROFESSOR Dysphagia Treatment Start: 03/12/21 15:52 Freq: Status: Active Protocol: Document 03/14/21 13:03 MG (Rec: 03/14/21 13:22 MG [id number]) Dysphagia Treatment Session Time Visit Start Time 12:20 Visit Stop Time 12:50 Total Visit Minutes 30 Setting Assessment Location Acute Care Patient Information Subjective Observations Pt sitting in chair at bedside post meeting with embedded case manager . Pt agreeable to TOPOLOGY PROFESSOR entry to provide treatment during lunch time. Treatment Liquids Trialed Honey Solids Trialed Puree Administration Type Cup Single Sip,Self-Feeding, Dependent Feeding Oral Strategies Upright at 90 degrees,Double Swallow,Controlled Bite/Sip Size Pharyngeal Strategies Sitting Upright (90 deg), Double Swallow,Small Bites and Sips Additional Dysphagia Treatment TOPOLOGY PROFESSOR feeding vs pt Strategies independently eating Treatment Activities TOPOLOGY PROFESSOR reminded pt of safe swallow strategies to implement during meal time prior to solid/liquid trials as well as intermittently during lunch. TOPOLOGY PROFESSOR observed pt attempt to independently eat, however pt was noted to comsume larger bites of solids and eat at a relatively quick pace. This brought on a coughing episode where pt produced a productive cough. Food/liquid trials were haulted as pt recovered from episode. TOPOLOGY PROFESSOR went over the importance of following the safe swallowing strategies in order to reduce the risk of aspiration. When trials were administered and demonstrated by the TOPOLOGY PROFESSOR, no overt s/sx of aspiration occurred. TOPOLOGY PROFESSOR removed food tray away from pt 's reach upon exiting the room at the end of the session until a trained staff member could be present and assist with the meal. Went over recommendations with nurse and discussed importance of the 1 :1 assist at this time. Assessment Patient Response to Treatment Fair Rehab Potential Fair Assessment of Improvement Pt appears to not follow safe swallow strategies at this time even with verbal reminders. 1:1 assistance on all solid/liquid consumption is warranted at this time in order to reduce the risk of aspiration. Diet Recommendations Recommendations Continue Current Diet Liquids Order Honey Diet Order Dysphagia Blenderized Medication Recommendations Whole in Carrier,Crushed in Carrier Additional Dietary Needs 1:1 Assistance,Encourage to Self-Feed Aspiration Precautions Recommended Precautions Upright at 90 Degrees,Frequent Rest Periods,Small Bites/Sips ,Double Swallow,Liquids from Spoon Additional Precautions Slow presentation to the pt, recline pt's bed no less than 40 degrees Treatment Plan Placement Recommendation after Discharge Intermediate Facility,[facility],Home with Home Health Appropriate for Continued Therapy Yes Therapy Recommendations Continue to monitor diet and independence of safe swallow strategies by the pt. Dysphagia Goals 1) Pt's diet texture will improve to least restricted level without s/sx of aspiration 2) Base of tongue exercises will be introduced to increase forward movement of hyoid 3) Safe swallow strategies will be introduced to the pt to reduce risk of aspiration. 4) Staff education for implementing safe swallow strategies.
[2021-03-15] VITALS (12 sets, daily range): BP systolic 119–175; BP diastolic 77–90; PULSE 77–106; RESP 16–32; TEMP 36.3–37.3; O2SAT 93–99
[2021-03-15 05:08] LABS: Add Manual Diff / Slide Review NO; Basophils Absolute Auto 100 /uL (0-100); Basophils Percent Auto 1.3 % (0-2); Eosinophils Absolute Auto 200 /uL (0-450); Eosinophils Percent Auto 4.6 % (2-4); Hematocrit 38.5 % (41-53); Hemoglobin 13.3 g/dL (13.5-17.5); Lymphocytes Absolute Auto 1200 /uL (1100-4500); Lymphocytes Percent Auto 23.7 % (25-40); Mean Corpuscular HGB Conc 34.6 % (30-36); Mean Corpuscular Hemoglobin 34.7 PG (26-34); Mean Corpuscular Volume 100.1 fL (80-100); Monocytes Absolute Auto 900 /uL (0-900); Monocytes Percent Auto 16.8 % (3-14); Neutrophils Absolute Auto 2700 /uL (1500-7000); Neutrophils Percent Auto 53.6 % (50-75); Platelet Count 198 X10^3/uL (150-400); Red Blood Cell Count 3.84 X10^6/uL (4.5-5.9); Red Cell Distribution Width 12.1 % (11.6-14.8); White Blood Cell Count 5.1 X10^3/uL (4.5-11.0)
[2021-03-15 05:13] LABS: Alanine Aminotransferase 34 IU/L (<50); Alkaline Phosphatase 76 U/L (38-126); Aspartate Aminotransferase 41 IU/L (17-59); BUN Creatinine Ratio 8.9 (6-22); Blood Urea Nitrogen 4 mg/dL (9-20); Calcium 8.2 mg/dL (8.4-10.2); Carbon Dioxide 29 mmol/L (22-32); Chloride 102 mmol/L (98-107); Estimated Glomerular Filt Rate > 60.0 mL/min (>60); Globulin 3.1 g/dL (1.7-4.1); Glucose 112 mg/dL (80-110); HEMOLYSIS < 15 (0-50); Potassium 3.6 mmol/L (3.4-5.1); Sodium 134 mmol/L (137-145); Total Protein 6.1 g/dL (6.3-8.2)
[2021-03-15] MEDS: ALBUTEROL/IPRATROPIUM 3 ML AMPUL INH ×4 (05:51→19:01)
[2021-03-15] MEDS: LEVOTHYROXINE 75 MCG TABLET PO (06:44)
[2021-03-15] MEDS: ENOXAPARIN 40 MG/0.4 ML SYRINGE SUBCUT (10:19)
[2021-03-15] MEDS: FOLIC ACID 1 MG TABLET PO (10:19)
[2021-03-15] MEDS: LOSARTAN 25 MG TABLET PO (10:19)
[2021-03-15] MEDS: MULTIVITAMIN 1 TABLET 1 TAB PO (10:19)
[2021-03-15] MEDS: SODIUM CHLORIDE 0.9% FLUSH 10 ML IV ×2 (10:19→20:56)
[2021-03-15] MEDS: carvediloL 3.125 MG TABLET PO ×2 (10:19→20:56)
--- NOTE | 2021-03-15 10:19 | CM.DPC ---
Addendum entered by Ramona Andino, [facility] 03/15/21 15:53: ADD: Call from [facility] admissions stating they completed bedside assess and spoke to administrators and decline accepting pt at this time. Plan: [facility] tomorrow via cabulance around 1500. BF Addendum entered by Ramona Andino, [facility] 03/15/21 14:53: ADD: [facility] did bedside assessment and still need to discuss with administrators and unsure if they will accept pt due to ETOH hx and current smoking. [facility] confirms that they could not find transportation cabulance for pt today but set up transport with only available slot with [facility] around [phone] tomorrow 03/16/21 and confirmed that no updated COVID needed if pt discharges tomorrow. SW updated RN on d/c plan to [facility] tomorrow. PASRR completed. BF Addendum entered by Ramona Andino, [facility] 03/15/21 11:56: ADD: SW called Medicaid transport and pt does not qualify for transportation benefits through Medicaid. ZEESHAN confirmed with [employer] that approved hospital pay for taxi if pt safe for taxi transport. SW spoke to PT and RN regarding ability to assist pt into taxi and safety and concerns with taxi van as pt 2PA and SW confirmed with [employer] that it would be a liability with pt's assist level and decline taking pt to SNF. ZEESHAN spoke to [facility] admissions and Luz will complete bedside assessment for pt around [phone] today and slight chance they could accept today if Luz approves pt but likely tomorrow for transport and staffing. ZEESHAN updated [facility] on lack of transportation and they will call [facility] to see if they can transport pt today. SW updated her that pt confirms he received his COVID vaccinations at his [facility] as [facility] and they brought a nurse in and she vaccinated us all. BF Original Note: DCP Cont: Per MD, pt seems to be stabilizing but still requiring a lot of assist and per RN pt now a 2PA with walker and no mechanical lift used at this time and still with 1:1 feed for meals as pt tends to anaya and increase his risk of aspiration. Per PT, still strongly recommending SNF prior to return to apt alone as pt not currently safe or able to manage his stairs or ambulation independently. ZEESHAN met bedside with pt and explained role and pt initial thinks he can d/c home via [facility] [facility] today but after further discussion regarding 2PA and not able to manage ambulating, stairs, or walking to the store independently pt again confirms that SNF needed at d/c and he is agreeable so he can strengthen to go home. Pt agreeable with SW continuing to work on Short Stay rehab prior to safe d/c home alone. [facility] previously had declined pt when he needed mechanical lift and 1:1 feed. [facility] was reviewing. [facility] had been faxed referral. SW then also made referral to [facility] and [facility] [place] and left messages. SW received a call back from [facility] requesting med list to be faxed and they are considering pt but want to do bedside assessment to confirm they can accept. Then return call from [facility] stating they could accept pt today if stable for d/c and no updated COVID needed as it's been within 7 days from prior COVID test but inquire about COVID vaccination status and cannot provide transport today but maybe pt has Medicaid transport. Plan: SW to follow up with pt on COVID vaccination status and transportation to determine if pt can d/c to [facility] today. ROBIN Alejandro
--- NOTE | 2021-03-15 10:31 | PT.IPTN ---
Current Diagnoses Alcohol dependence with withdrawal delirium (03/09/21) Physical Therapy Treatment Note M2 PT-IP Current Condition Start: 03/13/21 14:38 Freq: NEEDED Status: Active Protocol: Document 03/13/21 13:40 AB (Rec: 03/13/21 14:50 AB [id number]) Physical Therapy Current Condition Current Condition Evaluation Date 03/13/21 Treatment Diagnosis alcohol w/d; rhabdomyolysis; difficulty in walking Onset Date 03/09/21 Precautions Other Precautions falls M3 PT-IP Subjective Start: 03/13/21 14:38 Freq: NEEDED Status: Active Protocol: Document 03/15/21 09:15 MB (Rec: 03/15/21 10:30 MB [id number]) Subjective Physical Therapy Visit Type Type Treatment Note Visit Start Time 09:15 Visit Stop Time 09:32 Total Visit Minutes 17 Number of CLUB WAITER/WAITRESS Visits 0 Physical Therapy Visit Comments Patient Comments Pt is agreeable to PT. Therapy Pain Assessment Pain When Pain Assessed At Rest Pain Present Pain Present Denied Pain M4 PT-IP Mobility and Gait Start: 03/13/21 14:38 Freq: NEEDED Status: Active Protocol: Document 03/15/21 09:15 MB (Rec: 03/15/21 10:30 MB [id number]) PT-Bed Mobility Assessment Supine to Sit Supine to Sit Maximum Assistance,1 Person Assistance,Head of Bed Elevated,Bedrails PT-Transfer Assessment Sit to and From Stand Sit to and from Stand Maximum Assistance,1 Person Assistance,Use of Upper Extremities Equipment Transfer Assistive Device Gait Belt,Front Wheeled Walker Orthotic/Prosthetic Devices or Brace: No Transfers Transfer Destination Chair Transfer Technique Stand Step Pivot Transfer Ability Level of Assist Maximum Assistance,1 Person Assistance,Use of Upper Extremities Comments Mobility Comments Pt initiates scooting legs to the right to the EOB. HOB is increased and he requires PT cues to hold onto the rail and not reach for the PT. PT then uses pad to scoot his hips all the way out to EOB. Pt sitting EOB with UE support: he can lift B knees for october and extend B legs approximately 75% normal LAQ. Max A with support through gait belt and PT in front of walker blocking walker and pt feet and bed raised 2 to perform sit to stand. Pt unable to fully extend through hips. He taks 2 shuffling steps to the chair to the right with similar assist from PT and PT managing walker. Left up in chair with MILLWORK ESTIMATOR nearby. His HR increases from 106-130 BPM per tele during mobility. He has many areas of skin breakdown, greatest on right distal lateral leg. Gait Assessment Gait Gait Assistance Required: Maximum Assistance,1 Person Assist Distance (Feet) 1 Assistive Devices Assistive Device Gait Belt,Front Wheeled Walker Gait Deviations General Gait Pattern Decreased Stride Length, Decreased Feet Clearance, Flexed Trunk,Narrow Based Gait ,Step-to Gait Factors Limiting Gait Function Factors Limiting Gait Function Decreased Activity Tolerance, Decreased Strength,Difficulty Following Directions, Incoordination,Limited Range of Motion,Poor Balance,Poor Safety Awareness Comments Gait Comments See mobility description PT-Balance Assessment Sitting Balance and Reactions Static Sitting Balance Ability Fair Dynamic Sitting Balance Ability Poor Standing Balance and Reactions Static Standing Balance Ability Poor Dynamic Standing Balance Ability Poor Device Used FWW M5 PT-IP Objective Assessments Start: 03/13/21 14:38 Freq: NEEDED Status: Active Protocol: Document 03/13/21 13:40 AB (Rec: 03/13/21 14:50 AB [id number]) Orientation Orientation/Cognition Level of Alertness Alert Orientation Name Safety Awareness Decreased Safety Awareness Memory Description Short Term Impaired,School Supervisor Impaired Gross Range of Motion Lower Extremity ROM Assessment Within Functional Limits Strength Lower Extremity Strength Assessment Bilaterally Impaired Hip 3-/5 Knee 3+/5 Muscle Tone Muscle Tone WNL Yes M6 PT-IP Treatment Start: 03/13/21 14:38 Freq: NEEDED Status: Active Protocol: Document 03/15/21 09:15 MB (Rec: 03/15/21 10:30 MB [id number]) Physical Therapy Treatment Education Education Provided Safety M7 PT-IP Assessment and Plan Start: 03/13/21 14:38 Freq: NEEDED Status: Active Protocol: Document 03/15/21 09:15 MB (Rec: 03/15/21 10:30 MB [id number]) PT Summary Assessment and Plan Potential Rehabilitation Potential Fair Status of Condition at Evaluation Evolving Summary Impairments ROM,Strength,Balance, Coordination,Cognition,Bed Mobility,Transfers,Gait, Activity Tolerance Progress Towards Goals Slow Progress due to Medical Issues,Slow Progress due to Activity Tolerance Assessment Summary Pt requires cues for mobility and heavy PT assist to scoot hips to EOB and for sit to stand and to take shuffling/ scooting steps to the chair beside the bed with walker today. He is apprehensive about moving and has many areas of skin breakdown. He is tachycardic with mobility. He presents with globalized weakness and will benefit from ongoing acute and post-acute PT. Goals Bed Mobility Goal Minimal Assistance Transfer Goal Contact Guard Assistance,Front Wheeled Walker Gait Goal Contact Guard Assistance,Front Wheel Walker Gait Distance 25 Days to Meet Goals 10 Frequency of Treatment Frequency Of Treatment Once a Day Treatment Plan Physical Therapy Treatment Plan Bed Mobility Training,Transfer Training,Gait Training, Therapeutic Exercise,Balance Retraining,Discharge Planning, Hot or Cold Pack,Neuromuscular Re-ed,Coordination Retraining Precautions Other Precautions Fall risk Recommendations To Nursing Amount of Assist Needed 2 Person Assist,Mechanical Lift Discharge Recommendations PT Discharge Recommendations SNF Rehab Transportation Needs at Discharge Wheelchair/Cabulance
--- NOTE | 2021-03-15 15:19 | P.PN_ITS ---
Subjective Subjective Date Patient Seen: 03/15/21 Time Patient Seen: 08:00 Interval history: Today he feels wells. He is not withdrawing. He has no cough or shortness of breath. He still feels weak, not back to his normal strength. Exam Vital Signs (past 8 hours): - 03/15/21 11:00 03/15/21 11:05 03/15/21 14:37 Temperature 97.3 F L Pulse Rate 100 H 106 H 79 Respiratory Rate 32 H 22 24 Blood Pressure 119/77 Pulse Oximetry 98 97 99 Oxygen Delivery Method Room Air Oxygen Flow Rate 0 Narrative Exam Narrative: Gen: chronically ill appearing, no acute distress Resp: clear bilaterally CV: regular rate and rhythm, no murmur or rubs Abd: soft, non-tender, normal bowel sounds Skin: multiple abrasions on skin Neuro: alert, oriented, speech is clear and brief. Extremities: moves all four extremities Psyche: normal mood and affect. Objective Labs Result Diagrams: 03/15/21 04:30 03/15/21 04:30 Labs: Laboratory Results - last 24 hr 03/15/21 03/15/21 04:30 04:30 WBC 5.1 RBC 3.84 L Hgb 13.3 L Hct 38.5 L MCV 100.1 H MCH 34.7 H MCHC 34.6 RDW 12.1 Plt Count 198 Neut % (Auto) 53.6 Lymph % (Auto) 23.7 L [place] % (Auto) 16.8 H Eos % (Auto) 4.6 H Baso % (Auto) 1.3 Neut # (Auto) 2700 Lymph # (Auto) 1200 [place] # (Auto) 900 Eos # (Auto) 200 Baso # (Auto) 100 Sodium 134 L Potassium 3.6 Chloride 102 Carbon Dioxide 29 BUN 4 L Creatinine 0.45 L Estimated GFR > 60.0 BUN/Creatinine Ratio 8.9 Glucose 112 H Calcium 8.2 L Total Bilirubin 1.0 AST 41 ALT 34 Alkaline Phosphatase 76 Total Protein 6.1 L Albumin 3.0 L Globulin 3.1 Albumin/Globulin [facility] 1.0 [facility] History Alcohol dependence Anoxic brain injury Cardiomyopathy Cataracts, bilateral (2007) Chronic cough (1999) COPD (chronic obstructive pulmonary disease) Dislocated elbow (2000) Dislocated shoulder (2002) Eczema (2017) Elevated liver function tests Essential hypertension Fractures (~1963) GERD (gastroesophageal reflux disease) Hypothyroidism Impaired vision Paroxysmal atrial fibrillation Pulmonary nodule (~07/2019) Surgical History History of cataract removal with insertion of prosthetic lens History of nasal surgery (1963) History of repair of hiatal hernia Hx of hernia repair (1995) Family History Father History of arteriosclerotic cardiovascular disease History of emphysema Mother Cancer Grandfather No problems noted. Grandmother Stroke Grandfather No problems noted. Grandmother No problems noted. Social History household members: none Smoking Status: Current every day smoker Tobacco: How many years used: 22 quit status: not considering quitting second hand exposure: No alcohol intake: current substance use type: does not use Assessment & Plan Assessment & Plan narrative: Mr. Simpson was admitted with alcohol withdrawal 1. Acute alcohol withdrawal, resolved - increased librium to 75 mg q6hr after worsening withdrawal symptoms, however to manage symptoms he became slightly oversedated and likely aspirated, librium now stopped - stopped ativan per CIWA protocol as patient is not outside of window of severe withdrawal and has no withdrawal symptoms - discuss transfer back to PCP 2. Hypokalemia, resolved 3. Acute respiratory failure with hypoxia, resolved - wean from O2 as able. 4. aspiration pneumonitis, resolved - no need for antibiotics at this time, unless febrile or new leukocytosis - no definitive aspiration on barium swallow, but did have laryngeal penetration - Dietary consult ordered w/an albumin of 2.9 to recommend nutritional plan - add nebulizers as has smoking history and is coughing 5. Rhabdomyolysis with NAVEEN, acute, resolved - can stop IV fluids as CK now <500. Creatinine improved from 0.87 to 0.55, meeting definition for NAVEEN. - PT/OT consultation, can start tomorrow given worsening withdrawal overnight. 6. Stage 1-2 Pressure injury to the right lower calf, acute, present on admission - Monitor w/wound care as needed - Monitor for bacterial infection 7. Essential hypertension, chronic - Lisinopril held due to concerns for aspiration - On enalapril IV q 6 hours 8. Hypothyroidism, chronic - Continue home dose of levothyroxine 75 mcg p.o. daily 9. Alcoholic hepatitis, resolved - patient with elevated bilirubin, transaminase levels in 2:1 fashion on admission likely secondary to acute alcohol intake. 10. Toxic / Metabolic encephalopathy, resolved - patient initially confused in the ER, improved over time with fluids. Likely related to EtOH withdrawal or possibly rhabdomyolysis, now improved with above therapies. He appears to be improving his mentation, but continues to be evas roseann. Patient is medically stable for discharge. He is not withdrawing further. Await placement either at SNF or home health with PT pending further work by CM. Quality VTE Deep Vein Thrombosis/Pulmonary Embolism Present on Admission: No
--- NOTE | 2021-03-15 22:41 | PC.NURSE ---
shift summary- pt alert to self at first assessment, self, and age only for second assessment. Pt remains confused and restless, bed/hairr alarm activated. Hx COPD, 96-97% RA LS bilat LL exp fine crackles and wheezes, deneis SOB, intermittent non productive cough. Wounds to bilat elbows alevyn, right outer calf telpha/gauze, scabs bruisees to bilat knees. dysphagia diet with honey thick fluids. Inc urine wearing brief. up to chair until after dinner. CIWA scores 8 due to reporting moderte agitation r/t to being here in the hospital, and 4. RAC SL and wrapped with coband due to trying to remove it. unable to use call light appropriately, bed alarm on.
[2021-03-16] VITALS (16 sets, daily range): BP systolic 94–172; BP diastolic 61–97; PULSE 71–86; RESP 12–32; TEMP 36.2–37.2; O2SAT 76–100
--- NOTE | 2021-03-16 00:55 | PC.NURSE ---
Patient is alert and oriented except did not know why he is in hospital citing previous medical error that brought him to [place]. Breath sounds diminished but CTA with RA sat of 96%. Intermittent, non productive cough. HRR. BP elevated at 155/90 and has been mostly elevated. Denied nausea. BT present and abdomen is soft. Incontinent of urine following removal of catheter yesterday. Is able to help move self in bed. Gait not assessed but evening RN reports patient up to bathroom with walker and 1 assist; per PT is a 2 person assist. Is weak and has limited ROM in bilateral UE. Denied pain. Agreeable initially to putting on SCD's but doesn't leave them on. Abrasions noted on right side of face, right UE, left LE, left knee and toes. Allevyn dressing to left elbow wrapped with kerlix as not wanting to stay intact. Dressing to right LE is CDI. Fall risk score is high and bed alarm is activated.
[2021-03-16 05:20] LABS: Add Manual Diff / Slide Review NO; Basophils Absolute Auto 100 /uL (0-100); Basophils Percent Auto 1.4 % (0-2); Eosinophils Absolute Auto 500 /uL (0-450); Eosinophils Percent Auto 9.2 % (2-4); Hematocrit 40.5 % (41-53); Hemoglobin 13.9 g/dL (13.5-17.5); Lymphocytes Absolute Auto 1500 /uL (1100-4500); Lymphocytes Percent Auto 28.4 % (25-40); Mean Corpuscular HGB Conc 34.2 % (30-36); Mean Corpuscular Volume 99.4 fL (80-100); Monocytes Absolute Auto 1000 /uL (0-900); Monocytes Percent Auto 19.5 % (3-14); Neutrophils Absolute Auto 2200 /uL (1500-7000); Neutrophils Percent Auto 41.5 % (50-75); Platelet Count 211 X10^3/uL (150-400); Red Blood Cell Count 4.07 X10^6/uL (4.5-5.9); Red Cell Distribution Width 12.2 % (11.6-14.8); White Blood Cell Count 5.4 X10^3/uL (4.5-11.0)
[2021-03-16 05:26] LABS: Alanine Aminotransferase 32 IU/L (<50); Alkaline Phosphatase 82 U/L (38-126); Aspartate Aminotransferase 36 IU/L (17-59); BUN Creatinine Ratio 11.6 (6-22); Bilirubin Total 1.2 mg/dL (0.2-1.3); Blood Urea Nitrogen 5 mg/dL (9-20); Calcium 8.6 mg/dL (8.4-10.2); Carbon Dioxide 26 mmol/L (22-32); Chloride 104 mmol/L (98-107); Estimated Glomerular Filt Rate > 60.0 mL/min (>60); Globulin 3.1 g/dL (1.7-4.1); Glucose 114 mg/dL (80-110); HEMOLYSIS 16 (0-50); Potassium 3.6 mmol/L (3.4-5.1); Sodium 133 mmol/L (137-145); Total Protein 6.1 g/dL (6.3-8.2)
[2021-03-16] MEDS: LEVOTHYROXINE 75 MCG TABLET PO (06:22)
[2021-03-16] MEDS: ALBUTEROL 2.5 MG/3 ML NEB (ADULT) INH (07:33)
[2021-03-16] MEDS: SODIUM CHLORIDE 0.9% FLUSH 10 ML IV ×2 (09:00→20:26)
[2021-03-16] MEDS: carvediloL 3.125 MG TABLET PO (09:43)
[2021-03-16] MEDS: MULTIVITAMIN 1 TABLET 1 TAB PO (09:43)
[2021-03-16] MEDS: ENOXAPARIN 40 MG/0.4 ML SYRINGE SUBCUT (09:43)
[2021-03-16] MEDS: LOSARTAN 25 MG TABLET PO (09:43)
[2021-03-16] MEDS: FOLIC ACID 1 MG TABLET PO (09:43)
--- NOTE | 2021-03-16 10:30 | ST.IPDYTX ---
Visit Care Team Role Provider Type Jose Wyman MD Other Providers Physician Primary Care Provider Specialty: Internal Medicine Address: [address] [place] [address], [address], [place], [address] Email: [email or web address] Hemalatha Hand DO Emergency Provider Physician Referring Provider Specialty: Emergency Medicine Address: [address] [place] [address], [address] Email: [email or web address] Peres DO Admit Provider Physician Attending Provider Other Providers Specialty: Internal Medicine Address: [address] [place] [address], [id number] Email: [email or web address] GAS MAIN FITTER Dysphagia Treatment GAS MAIN FITTER Dysphagia Treatment Start: 03/12/21 15:52 Freq: Status: Active Protocol: Document 03/16/21 10:22 [email or web address] (Rec: 03/16/21 10:30 LNK [id number]) Dysphagia Treatment Session Time Visit Start Time 08:45 Visit Stop Time 09:10 Total Visit Minutes 25 Setting Assessment Location Acute Care Treatment Liquids Trialed [place],Honey Solids Trialed Puree,Dysphagia Mechanical Administration Type Cup Single Sip,Self-Feeding, Dependent Feeding Oral Strategies Upright at 90 degrees,Double Swallow,Controlled Bite/Sip Size Pharyngeal Strategies Sitting Upright (90 deg), Double Swallow,Small Bites and Sips Additional Dysphagia Treatment GAS MAIN FITTER feeding vs pt Strategies independently eating Treatment Activities Pt sitting in chair at bedside . currently eating breakfast. Pt looks much better than he did on Tuesday.. Pt self feeding without difficulty pt using straw without difficulty . Trial diet advance safely tolerated. Cuing needed to slow rate of intake followed ~ 50% of the time. Needed reminders to use strategies. Will change diet texture to dysphagia mechanical with nectar thick liquids. Assessment Patient Response to Treatment Fair Rehab Potential Fair Assessment of Improvement Diet advance recommended to dysohagia mechanical and nectar thick liquiuds. Pt appears needs cuing to follow safe swallow strategies at this time even with verbal reminders. Diet Recommendations Recommendations Upgrade Diet Order Liquids Order [place] Diet Order Dysphagia Mechanical Medication Recommendations Whole in Carrier,Crushed in Carrier Additional Dietary Needs Encourage to Self-Feed, Reminders to Use Strategies Aspiration Precautions Recommended Precautions Upright at 90 Degrees,Frequent Rest Periods,Small Bites/Sips ,Double Swallow,Liquids from Spoon Additional Precautions Slow presentation to the pt, recline pt's bed no less than 40 degrees Treatment Plan Placement Recommendation after Discharge Group Home Facility,Meat Department Manager Care Facility,Home with Home Health Appropriate for Continued Therapy Yes Therapy Recommendations Continue to monitor diet and independence of safe swallow strategies by the pt. Dysphagia Goals 1) Pt's diet texture will improve to least restricted level without s/sx of aspiration 2) Base of tongue exercises will be introduced to increase forward movement of hyoid 3) Safe swallow strategies will be introduced to the pt to reduce risk of aspiration. 4) Staff education for implementing safe swallow strategies.
--- NOTE | 2021-03-16 10:40 | OT.IP.TRT ---
Current Diagnoses Alcohol dependence with withdrawal delirium (03/09/21) Occupational Therapy Treatment Note M2 OT-IP Current Condition Start: 03/13/21 15:32 Freq: Status: Active Protocol: Document 03/13/21 14:48 [facility] (Rec: 03/13/21 15:49 [facility] [id number]) Occupational Therapy Current Condition Current Condition Evaluation Date 03/13/21 Treatment Diagnosis ETOH withdrawl, acuter respiratory failure with hypoxia, rhabodmyolysis Diagnosis Onset Date 03/09/21 M3 OT- IP Subjective and Pain Start: 03/13/21 15:32 Freq: Status: Active Protocol: Document 03/16/21 11:02 [facility] (Rec: 03/16/21 11:15 [facility] [id number]) OT- Subjective Occupational Therapy Visit Type Type Treatment Note Visit Start Time 10:10 Visit Stop Time 10:37 Total Visit Minutes 27 Occupational Therapy Visit Comments Patient Comments Pt just completing sponge bath with nursing aid. Patient/Caregiver Goals Pt now stating wanting to go home but aware not able to care for himself. OT Pain Assessment Pain When Pain Assessed At Rest Pain Present Pain Present Denied Pain M4 OT- IP ADL's Start: 03/13/21 15:32 Freq: Status: Active Protocol: Document 03/16/21 11:02 [facility] (Rec: 03/16/21 11:15 [facility] [id number]) OT ADL-Grooming General Evaluation Grooming Ability Standby Assistance Areas Needing Assistance Retrieving/Set-up of Grooming Items Comments OT Grooming Comments Able to do while seated. OT ADL-Oral Care General Eval Oral Care Ability Independent OT ADL-Dressing General Eval Lower Body Dressing Ability Maximum Assistance OT ADL-Toileting General Evaluation Toileting Ability Maximum Assistance Comments OT Toileting Comments Brief change and hygiene needed. OT ADL-Bathing Bathing Type Bathing Type Sponge Bath General Evaluation Bathing Ability Maximal Assistance M6 OT- IP Functional Cognition Start: 03/13/21 15:32 Freq: Status: Active Protocol: Document 03/16/21 11:02 [facility] (Rec: 03/16/21 11:15 [facility] [id number]) Cognitive Factors Limiting Selfcare Function Cognitive Ability Level of Alertness Alert,Confusional State Patient Orientation Name,Place Attention Span Ability Capable of Focused Attention, Capable of Sustained Attention Ability to Follow Commands Able to Follow One Step Commands with Increased Time, Able to Follow One Step Commands with Repetition Memory Description Short Term Impaired,Working Impaired Safety Awareness Underestimates Need for Assistance Problem Solving Ability Needs Assist to Identify Solutions Cognitive Comments Cognitive Assessment Comments Pt started to do SLUMS with OT and scoring 4/9 for the first 6 items. Pt not aware what day it was and thought that it was instead of Tuesday. Pt not able to listen to a math problem to figure out to add two digits together. Pt able to name 7 animals and then states, It is hard to think. M7 OT- IP Mobility and Balance Start: 03/13/21 15:32 Freq: Status: Active Protocol: Document 03/16/21 11:02 [facility] (Rec: 03/16/21 11:15 [facility] [id number]) OT-Transfer Assessment Sit to and From Stand Sit to and from Stand Moderate Assistance,1 Person Assistance Comments Mobility Comments MODA to help stand form recliner to FWW. OT- Balance Assessment Sitting Balance and Reactions Static Sitting Balance Ability Good Dynamic Sitting Balance Ability Fair Standing Balance and Reactions Static Standing Balance Ability Poor Dynamic Standing Balance Ability Poor Comments Other Balance Tests/Deviations/Treatment Pt doing better to come to : stand however still heavily leans posteriorly. M8 OT- IP Objective Assessments Start: 03/13/21 15:32 Freq: Status: Active Protocol: Document 03/13/21 14:48 [facility] (Rec: 03/13/21 15:49 [facility] [id number]) OT Gross Range of Motion Upper Extremity Range of Motion Assessment Bilaterally Impaired OT Strength Upper Extremity Strength Assessment Bilaterally Impaired OT- Coordination Assessment Comments Coordination Comments Decreased for use of hand to take off and put on his watch. M9 OT- IP Assessment and Plan Start: 03/13/21 15:32 Freq: Status: Active Protocol: Document 03/16/21 11:02 [facility] (Rec: 03/16/21 11:15 [facility] [id number]) OT Summary Assessment and Plan Potential Rehabilitation Potential Fair Analytic Complexity at Evaluation Moderate Summary OT Impairments Pain,Strength,Balance, Functional Cognition, Functional Mobility,Self- Feeding,Grooming,Dressing, Toileting,Bathing,Toilet Transfers,Shower Transfers, Activity Tolerance Progress Towards Goals Slow Progress due to Activity Tolerance,Slow Progress due to Cognition Assessment Summary Pt to be going to skilled rehab as still having balance , swallowing, and not independent for his ADL and functional mobility needs. pt is a high fall risk and will benefit from skilled rehab. Goals Self-Feeding Goal Independent Grooming Goal Independent Dressing Goal Independent Toileting Goal Independent Toilet Transfer Goal Independent Shower Transfer Goal Independent Days to Meet Goals 29 Frequency of Treatment Frequency Of Treatment Once a Day Treatment Plan OT Treatment Plan ADL Training,Functional Cognition Training,Functional Mobility,Patient/Family Education,Discharge Planning Other Treatment Recommendations and Next MODA X 1 with FWW to [facility] [place] Focus Discharge Recommendations OT Discharge Recommendations SNF Rehab Transportation Needs at Discharge Wheelchair/Cabulance
[2021-03-16] MEDS: ALBUTEROL/IPRATROPIUM 3 ML AMPUL INH ×3 (11:11→19:03)
--- NOTE | 2021-03-16 11:21 | DIET.PN ---
Dietary Progress Note RD Note: Per INSURANCE BILLING SPECIALIST, pt diet advanced to Dysphagia mechanical soft/nectar liquids. Kitchen to send NKT ONS Az bid to support micronutrient and protein needs for wound healing in addition to meal tray.
[2021-03-16] MEDS: SODIUM CHLORIDE 0.9% 500 ML 1000 ML IV (11:30)
--- NOTE | 2021-03-16 11:31 | PC.NURSE ---
Addendum entered by Harpreet Morejon R.N. 03/16/21 13:35: Patient declined lunch, stating he is very tired. Will check orthostatics when patient is more alert and able to do safely. Currently sleeping in bed comfortably, awakens easily. Continue to monitor. Original Note: Patient was sitting up in chair, when RT called for help as she was speaking to patient and setting up his breathing treatment. He slumped over in chair and was not responding. Upon this RN's arrival patient was breathing spontaneously, not responding and Rn was attempting to get vital signs, sp02 was 96% on RA. Dr. Su called immediately and came to bedside. Patient stopped breathing spontaneously and was lifted from chair and placed in bed, wali lim called but cancelled as patient began spontaneously breathing and started to mumble and open his eyes. RT had placed patient on NRB mask at 10L for sp02 reading of 76% at 1118, then up to 92% with RR 32. See vital sign record. Patient awakened and opened eyes, states I'm very tired, states I'm causing everyone a lot of trouble. Dr. Huff continued at bedside for assessment. Labs, abg, ECG, CT scan and normal saline 500cc IV bolus ordered and completed. Placed back on telemetry. Patient had been incontinent of urine in brief, cleaned and changed. Continue to monitor closely. Bed alarm on, and call light within reach.
--- NOTE | 2021-03-16 11:47 | DI.CT.S_ITS ---
PROCEDURE: CT HEAD/BRAIN WO CON INDICATIONS: loss of LOC TECHNIQUE: Noncontrast 4.5 mm thick angled axial sections acquired from the foramen magnum to the vertex, with coronal and sagittal reformats. For radiation dose reduction, the following was used: automated exposure control, adjustment of mA and/or kV according to patient size. COMPARISON: [facility], MR, MR HEAD/BRAIN WO CON, 02/18/2020, 10:47. [facility], CT, CT HEAD/BRAIN WO CON, 02/20/2021, 21:09. [facility], CT, CT HEAD/BRAIN WO CON, 03/09/2021, 14:04. FINDINGS: Image quality: Excellent. CSF spaces: Basal cisterns are patent. No extra-axial fluid collections. The ventricles are symmetric in size and shape. Brain: No intracranial bleeds or masses. There is cerebral volume loss for age, with resultant ventricular and sulcal prominence. There are periventricular and deep white matter chronic small vessel ischemic changes. There is intracranial internal carotid artery atherosclerosis. Skull and face: Calvarium and visualized facial bones appear intact, without suspicious lesions. Sinuses: [id number] mucosal thickening is seen within the posterior right maxillary sinus. The paranasal sinuses otherwise appear relatively clear. Postoperative changes are seen, with bilateral antrectomy, with removal of portions of the middle turbinates. No abnormal fluid is seen within the mastoid air cells. IMPRESSION: Stable intracranial study demonstrating brain parenchymal volume loss and chronic small vessel ischemic change. Focal right maxillary sinus disease. Paranasal sinus postoperative change, with bilateral antrectomy. Dictated by: Jeffy Heredia M.D. on 03/16/2021 at 11:08 Approved by: Jeffy Heredia M.D. on 03/16/2021 at 11:10
--- NOTE | 2021-03-16 11:50 | PM.EVENT ---
Event Note Date Patient Seen: 03/16/21 Time Patient Seen: 11:30 Event Note: Patient had plan to dc to snf today. Per staff patient was sitting in chair and receiving breathing treatment. He became suddenly unresponsive after speaking earlier. He was not on telemetry at that time. He had no seizure like activity noted. He initially appeared to stop breathing, and was put back in bed, where he over the course of approximately one minute regained altertness. He only described feeling tired. He was initially placed on nonrebreather. First blood pressure check was systolic in the 90s, but then came up to the 130s. He began answering questions appropriately. He was taken off oxygen and satting appropriately. He had a slight cough. Neuro exam performed showed no cranial nerve deficits and normal upper and lower extremity strength. EKG showed no acute ischemia. Glucose was 125. Stat CBC, BMP, ABG, lactate were ordered. CT head was ordered. Orthostatics were ordered. Most likely etiology is orthostatic hypotension in setting of new blood pressure medication, coreg is now discontinued, but yesterday systolic blood pressure was in the 170s. Other etiologies considered but thought to be less likely were seizure, malignant cardiac arrhythmia, CVA, aspiration, PE.
[2021-03-16 12:01] LABS: BUN Creatinine Ratio 10.9 (6-22); Blood Urea Nitrogen 6 mg/dL (9-20); Calcium 8.9 mg/dL (8.4-10.2); Carbon Dioxide 27 mmol/L (22-32); Chloride 102 mmol/L (98-107); Estimated Glomerular Filt Rate > 60.0 mL/min (>60); Glucose 106 mg/dL (80-110); HEMOLYSIS < 15 (0-50); Lactate (Lactic Acid) 2.7 mmol/L (0.7-2.1); Sodium 134 mmol/L (137-145)
--- NOTE | 2021-03-16 12:26 | PT-IP ANOTE ---
Holding physical therapy treatment this morning due to change in medical status while up with nursing. Will continue to follow.
[2021-03-16 12:51] LABS: HCO3 ABG 26 mmol/L (22-26); Oxygen Saturation ABG 94 % (95-100); PCO2 ABG 36.4 mmHg (35-45); PO2 ABG 66 mmHg (80-100); TCO2 ABG 27 mmol/L (21-31); pH ABG 7.47 (7.35-7.45)
[2021-03-16 12:52] LABS: Fractionated Inspired Oxygen 28
--- NOTE | 2021-03-16 13:21 | P.PN_ITS ---
Subjective Subjective Date Patient Seen: 03/16/21 Time Patient Seen: 08:00 Interval history: Please see event note for details of patient clinical change this morning. When patient seen this morning he was feeling well. He had no complaints. He was feeling weakness generally in his legs and left hand that had been ocurring for over a year. Exam Vital Signs (past 8 hours): - 03/16/21 07:35 03/16/21 07:50 03/16/21 11:11 Temperature 98.9 F Pulse Rate 79 77 76 Pulse Rate [Orthostatic Lying] Pulse Rate [Orthostatic Sitting] Respiratory Rate 16 20 16 Blood Pressure 160/97 H Blood Pressure [Orthostatic Lying] Blood Pressure [Orthostatic Sitting] Pulse Oximetry 96 95 96 03/16/21 11:15 03/16/21 11:19 03/16/21 11:28 Temperature Pulse Rate 79 81 79 Pulse Rate [Orthostatic Lying] Pulse Rate [Orthostatic Sitting] Respiratory Rate 16 32 H 28 H Blood Pressure 94/61 104/70 133/80 Blood Pressure [Orthostatic Lying] Blood Pressure [Orthostatic Sitting] Pulse Oximetry 96 92 100 03/16/21 11:30 03/16/21 12:01 03/16/21 12:19 Temperature 98.1 F Pulse Rate 74 86 Pulse Rate [Orthostatic Lying] 74 Pulse Rate [Orthostatic Sitting] 73 Respiratory Rate 27 H 30 H Blood Pressure Blood Pressure [Orthostatic Lying] 160/75 H Blood Pressure [Orthostatic Sitting] 152/75 H Pulse Oximetry 98 99 Oxygen Delivery Method Room Air Oxygen Flow Rate 2 Narrative Exam Narrative: Gen: chronically ill appearing, no acute distress Resp: clear bilaterally CV: regular rate and rhythm, no murmur or rubs Abd: soft, non-tender, normal bowel sounds Skin: multiple abrasions on skin Neuro: alert, oriented, speech is clear and brief. Extremities: moves all four extremities Psyche: normal mood and affect. Objective Labs Result Diagrams: 03/16/21 04:55 03/16/21 11:40 Labs: Laboratory Results - last 24 hr 03/16/21 03/16/21 03/16/21 04:55 04:55 11:30 WBC 5.4 RBC 4.07 L Hgb 13.9 Hct 40.5 L MCV 99.4 MCH 34.0 MCHC 34.2 RDW 12.2 Plt Count 211 Neut % (Auto) 41.5 L Lymph % (Auto) 28.4 [place] % (Auto) 19.5 H Eos % (Auto) 9.2 H Baso % (Auto) 1.4 Neut # (Auto) 2200 Lymph # (Auto) 1500 [place] # (Auto) 1000 H Eos # (Auto) 500 H Baso # (Auto) 100 ABG pH 7.47 H ABG pCO2 36.4 ABG pO2 66 L ABG HCO3 26 ABG Total CO2 27 ABG O2 Saturation 94 L ABG Base Excess 2.0 FiO2 28 Sodium 133 L Potassium 3.6 Chloride 104 Carbon Dioxide 26 BUN 5 L Creatinine 0.43 L Estimated GFR > 60.0 BUN/Creatinine Ratio 11.6 Glucose 114 H Lactate Calcium 8.6 Magnesium Total Bilirubin 1.2 AST 36 ALT 32 Alkaline Phosphatase 82 Total Protein 6.1 L Albumin 3.0 L Globulin 3.1 Albumin/Globulin Ratio 1.0 03/16/21 03/16/21 03/16/21 11:40 11:40 11:40 WBC RBC Hgb Hct MCV MCH MCHC RDW Plt Count Neut % (Auto) Lymph % (Auto) [place] % (Auto) Eos % (Auto) Baso % (Auto) Neut # (Auto) Lymph # (Auto) [place] # (Auto) Eos # (Auto) Baso # (Auto) ABG pH ABG pCO2 ABG pO2 ABG HCO3 ABG Total CO2 ABG O2 Saturation ABG Base Excess FiO2 Sodium 134 L Potassium 4.0 Chloride 102 Carbon Dioxide 27 BUN 6 L Creatinine 0.55 L Estimated GFR > 60.0 BUN/Creatinine Ratio 10.9 Glucose 106 Lactate 2.7 H Calcium 8.9 Magnesium 2.0 Total Bilirubin AST ALT Alkaline Phosphatase Total Protein Albumin Globulin Albumin/Globulin Ratio [facility] Medical History Alcohol dependence Anoxic brain injury Cardiomyopathy Cataracts, bilateral (2007) Chronic cough (1999) COPD (chronic obstructive pulmonary disease) Dislocated elbow (2000) Dislocated shoulder (2001) Eczema (2017) Elevated liver function tests Essential hypertension Fractures (~1963) GERD (gastroesophageal reflux disease) Hypothyroidism Impaired vision Paroxysmal atrial fibrillation Pulmonary nodule (~07/2019) Surgical History History of cataract removal with insertion of prosthetic lens History of nasal surgery (1963) History of repair of hiatal hernia Hx of hernia repair (1995) Family History Father History of arteriosclerotic cardiovascular disease History of emphysema Mother Cancer Grandfather No problems noted. Grandmother Stroke Grandfather No problems noted. Grandmother No problems noted. Social History household members: none Smoking Status: Current every day smoker Tobacco: How many years used: 22 quit status: not considering quitting second hand exposure: No alcohol intake: current substance use type: does not use Assessment & Plan Assessment & Plan narrative: Mr. Simpson was admitted with alcohol withdrawal 1. Acute alcohol withdrawal, resolved - increased librium to 75 mg q6hr after worsening withdrawal symptoms, however to manage symptoms he became slightly oversedated and likely aspirated, librium now stopped - stopped ativan per [facility] protocol as patient is not outside of window of severe withdrawal and has no withdrawal symptoms - discuss transfer back to PCP 2. Hypokalemia, resolved 3. Acute respiratory failure with hypoxia, resolved - wean from O2 as able. 4. aspiration pneumonitis, resolved - no need for antibiotics at this time, unless febrile or new leukocytosis - no definitive aspiration on barium swallow, but did have laryngeal penetration - Dietary consult ordered w/an albumin of 2.9 to recommend nutritional plan - add nebulizers as has smoking history and is coughing 5. Rhabdomyolysis with NAVEEN, acute, resolved - can stop IV fluids as CK now <500. Creatinine improved from 0.87 to 0.55, meeting definition for NAVEEN. - PT/OT consultation, can start tomorrow given worsening withdrawal overnight. 6. Stage 1-2 Pressure injury to the right lower calf, acute, present on admission - Monitor w/wound care as needed - Monitor for bacterial infection 7. Essential hypertension, chronic - Lisinopril held due to concerns for aspiration - On enalapril IV q 6 hours 8. Hypothyroidism, chronic - Continue home dose of levothyroxine 75 mcg p.o. daily 9. Alcoholic hepatitis, resolved - patient with elevated bilirubin, transaminase levels in 2:1 fashion on admission likely secondary to acute alcohol intake. 10. Toxic / Metabolic encephalopathy, resolved - patient initially confused in the ER, improved over time with fluids. Likely related to EtOH withdrawal or possibly rhabdomyolysis, now improved with above therapies. He appears to be improving his mentation, but continues to be evasive. Quality VTE Deep Vein Thrombosis/Pulmonary Embolism Present on Admission: No
[2021-03-16 13:45] LABS: Reflexed Lactate in 2 Hours Y
[2021-03-16 14:28] LABS: Add Manual Diff / Slide Review NO; Basophils Absolute Auto 100 /uL (0-100); Eosinophils Absolute Auto 500 /uL (0-450); Hematocrit 45.3 % (41-53); Hemoglobin 15.6 g/dL (13.5-17.5); Lymphocytes Absolute Auto 1200 /uL (1100-4500); Lymphocytes Percent Auto 22.5 % (25-40); Mean Corpuscular HGB Conc 34.4 % (30-36); Mean Corpuscular Hemoglobin 34.8 PG (26-34); Mean Corpuscular Volume 101.2 fL (80-100); Monocytes Absolute Auto 800 /uL (0-900); Monocytes Percent Auto 15.6 % (3-14); Neutrophils Absolute Auto 2800 /uL (1500-7000); Neutrophils Percent Auto 51.9 % (50-75); Platelet Count 202 X10^3/uL (150-400); Red Blood Cell Count 4.48 X10^6/uL (4.5-5.9); Red Cell Distribution Width 12.2 % (11.6-14.8); White Blood Cell Count 5.4 X10^3/uL (4.5-11.0)
[2021-03-16 16:13] LABS: Lactate (Lactic Acid) 1.2 mmol/L (0.7-2.1)
--- NOTE | 2021-03-16 16:18 | CM.DPC ---
DCP Continued: LASTING ROOM SUPERVISOR Student and nurse met with patient x2 this date. Provided education about the benefits of SNF placement to patient vs returning home due to safety as per therapy patient requires an x2 person assistance for ambulation and assistance for basic ADL?s at this time. Patient agreed and is aware there is a 1500 D/C time for transportation. Left a message for [place] , to cancel todays D/C per Dr. Huff as patient had an even this morning. Requested to reschedule D/C and transfer to [place] on 03/17/21 at the same time around 1500. LASTING ROOM SUPERVISOR student met with patient he gave permission for doctor and staff to speak with his brother about how he is doing. LASTING ROOM SUPERVISOR spoke with Júnior this date he expressed concern about brother being transferred to [place] as it is farther away from [place]. LASTING ROOM SUPERVISOR Student later called Bill to inform him he will not be transferred to [place] today, he expressed understanding and asked if the hospitalist would call him. Provided Dr. Huff with Bill?s phone number. PLAN: Anticipate D/C to [place]?s when patient is medically stable. CM Team to continue to follow. ROBIN Suarez MSW Student
--- NOTE | 2021-03-16 23:25 | PC.NURSE ---
dressing was change around 2229 to his RLE. allylvn dressing applied to R.hip. pt able to reposition independently.
[2021-03-17 04:00] VITALS: BP 163/78; PULSE 79; RESP 35; TEMP 36.7; O2SAT 93
[2021-03-17 05:10] LABS: Hematocrit 38.9 % (41-53); Hemoglobin 13.4 g/dL (13.5-17.5); Mean Corpuscular HGB Conc 34.4 % (30-36); Mean Corpuscular Volume 98.7 fL (80-100); Platelet Count 214 X10^3/uL (150-400); Red Blood Cell Count 3.94 X10^6/uL (4.5-5.9); White Blood Cell Count 5.7 X10^3/uL (4.5-11.0)
[2021-03-17 05:19] LABS: BUN Creatinine Ratio 17.8 (6-22); Blood Urea Nitrogen 8 mg/dL (9-20); Calcium 8.3 mg/dL (8.4-10.2); Carbon Dioxide 27 mmol/L (22-32); Chloride 104 mmol/L (98-107); Estimated Glomerular Filt Rate > 60.0 mL/min (>60); Glucose 118 mg/dL (80-110); HEMOLYSIS 17 (0-50); Potassium 3.7 mmol/L (3.4-5.1); Sodium 134 mmol/L (137-145)
[2021-03-17] MEDS: LEVOTHYROXINE 75 MCG TABLET PO (06:26)
[2021-03-17 07:20] VITALS: PULSE 76; RESP 14; O2SAT 96
[2021-03-17] MEDS: ALBUTEROL/IPRATROPIUM 3 ML AMPUL INH ×2 (07:20→11:09)
[2021-03-17 08:00] VITALS: BP 150/70; PULSE 76; RESP 30; TEMP 37.2; O2SAT 95
[2021-03-17 08:01] VITALS: BP 142/76; BP 153/79; BP 160/88; PULSE 76; PULSE 80; PULSE 85
[2021-03-17] MEDS: FOLIC ACID 1 MG TABLET PO (08:07)
[2021-03-17] MEDS: ENOXAPARIN 40 MG/0.4 ML SYRINGE SUBCUT (08:07)
[2021-03-17] MEDS: SODIUM CHLORIDE 0.9% FLUSH 10 ML IV (08:07)
[2021-03-17] MEDS: MULTIVITAMIN 1 TABLET 1 TAB PO (08:07)
[2021-03-17] MEDS: LOSARTAN 25 MG TABLET PO (08:07)
--- NOTE | 2021-03-17 10:46 | PT.IPTN ---
Current Diagnoses Alcohol dependence with withdrawal delirium (03/09/21) Physical Therapy Treatment Note M2 PT-IP Current Condition Start: 03/13/21 14:38 Freq: NEEDED Status: Active Protocol: Document 03/13/21 13:40 [facility] (Rec: 03/13/21 14:50 [facility] [id number]) Physical Therapy Current Condition Current Condition Evaluation Date 03/13/21 Treatment Diagnosis alcohol w/d; rhabdomyolysis; difficulty in walking Onset Date 03/09/21 Precautions Other Precautions falls M3 PT-IP Subjective Start: 03/13/21 14:38 Freq: NEEDED Status: Active Protocol: Document 03/17/21 10:46 [facility] (Rec: 03/17/21 12:16 [facility] [id number]) Subjective Physical Therapy Visit Type Type Treatment Note Visit Start Time 10:46 Visit Stop Time 11:07 Total Visit Minutes 21 Number of CHILDCARE ATTENDANT Visits 0 Physical Therapy Visit Comments Patient Comments pt requesting to use the toilet M4 PT-IP Mobility and Gait Start: 03/13/21 14:38 Freq: NEEDED Status: Active Protocol: Document 03/17/21 10:46 [facility] (Rec: 03/17/21 12:16 [facility] [id number]) PT-Bed Mobility Assessment Supine to Sit Supine to Sit Moderate Assistance,Maximum Assistance,1 Person Assistance ,Head of Bed Elevated Scooting Scooting to Edge of Bed Moderate Assistance PT-Transfer Assessment Sit to and From Stand Sit to and from Stand Moderate Assistance,Maximum Assistance,1 Person Assistance ,Use of Upper Extremities Equipment Transfer Assistive Device Gait Belt,Front Wheeled Walker Orthotic/Prosthetic Devices or Brace: No Transfers Transfer Technique Stand Step Pivot Transfer Ability Level of Assist Maximum Assistance,1 Person Assistance,Use of Upper Extremities Comments Mobility Comments pt in bed and requesting to use the toilet. completed supine to sit with HOB elevated mod to max A and max cues. pt was able to sit on EOB SBA. completed sit to stand mod to max A and max cues and completed step transfer using FWW max A x 1- 2 and cues. presents with unsteady standing and (+) LE shaking/tremors using standing . pt completed sit to stand from the bedside commode max Ax 1-2 and max cues and was able to maintain standing max A while nurse assisted with hygiene care and brief management. pt then was able to take steps using FWW to get to the chair max A x 1-2 and max cues. positioned pt on chair. call light and table placed within reach. Left pt with NAC in room. Gait Assessment Gait Gait Assistance Required: Maximum Assistance,1 Person Assist Distance (Feet) 2 Able to Maintain Weight Bearing Status Yes During Gait Assistive Devices Assistive Device Gait Belt,Front Wheeled Walker Orthotic/Prosthetic Devices or Brace: No Gait Deviations General Gait Pattern Ataxic,Decreased Stride Length ,Decreased Feet Clearance,Step -to Gait Factors Limiting Gait Function Factors Limiting Gait Function Decreased Activity Tolerance, Decreased Strength,Difficulty Following Directions,Limited Range of Motion,Poor Balance, Poor Safety Awareness Comments Gait Comments pls refer to mobility section for details M5 PT-IP Objective Assessments Start: 03/13/21 14:38 Freq: NEEDED Status: Active Protocol: Document 03/13/21 13:40 [facility] (Rec: 03/13/21 14:50 [facility] [id number]) Orientation Orientation/Cognition Level of Alertness Alert Orientation Name Safety Awareness Decreased Safety Awareness Memory Description Short Term Impaired,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 Impaired Gross Range of Motion Lower Extremity ROM Assessment Within Functional Limits Strength Lower Extremity Strength Assessment Bilaterally Impaired Hip 3-/5 Knee 3+/5 Muscle Tone Muscle Tone WNL Yes M6 PT-IP Treatment Start: 03/13/21 14:38 Freq: NEEDED Status: Active Protocol: Document 03/17/21 10:46 [facility] (Rec: 03/17/21 12:16 AB [id number]) Physical Therapy Treatment Education Education Provided Safety M7 PT-IP Assessment and Plan Start: 03/13/21 14:38 Freq: NEEDED Status: Active Protocol: Document 03/17/21 10:46 [facility] (Rec: 03/17/21 12:16 AB [id number]) PT Summary Assessment and Plan Potential Rehabilitation Potential Fair Summary Impairments Pain,ROM,Strength,Balance, Coordination,Sensation,Tone, Cognition,Bed Mobility, Transfers,Gait,Activity Tolerance Progress Towards Goals Slow Progress due to Medical Issues,Slow Progress due to Activity Tolerance Assessment Summary pt requiring max A x 1-2 with mobility using FWW and has decrease activity tolerance affecting mobility level. pt will require SNF rehab to improve overall strength and functional mobility. Goals Bed Mobility Goal Minimal Assistance Transfer Goal Contact Guard Assistance,Front Wheeled Walker Gait Goal Contact Guard Assistance,Front Wheel Walker Gait Distance 25 Days to Meet Goals 10 Frequency of Treatment Frequency Of Treatment Once a Day Treatment Plan Physical Therapy Treatment Plan Bed Mobility Training,Transfer Training,Gait Training, Therapeutic Exercise,Balance Retraining,Discharge Planning, Hot or Cold Pack,Neuromuscular Re-ed,Coordination Retraining Precautions Other Precautions Fall risk Recommendations To Nursing Amount of Assist Needed 2 Person Assist Discharge Recommendations PT Discharge Recommendations SNF Rehab Transportation Needs at Discharge Wheelchair/Cabulance
[2021-03-17 11:09] VITALS: PULSE 85; RESP 35; O2SAT 93
[2021-03-17 11:22] LABS: COVID19 - ADMIT (NP swab/PCR) Negative (Negative)
[2021-03-17 12:00] VITALS: BP 114/74; PULSE 86; RESP 27; TEMP 36.5; O2SAT 95
--- NOTE | 2021-03-17 12:40 | P.DS_ITS ---
History of Present Illness History of Present Illness Chief complaint: Alcohol withdrawal, found passed out at his home Narrative: Per Carol Bowles: Shmuel Simpson is a 65 y.o. 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 Patient's housemate contacted EMS for welfare check as he had been confused and not talking properly for the last several days. Patient was quite weak and unable to get off the floor where he was found face down particularly on the right side of his bathroom floor. Patient states is very sleepy and attempts to answer questions but does not really make any sense or is evasive. He does have clear speech. Patient states he was at [facility] recently for a tube in my heart. Patient is unable to give much history, states he does not take any medications, though he told the ED provider he takes protonix. Denies any fever, sweats of chills, headache, no chest pain or current shortness of breath, no nausea or vomiting, , dysurea, diarrhea or constipation. He is aware of having been on the floor and states the right side of his lower leg is painful. Patient did not appear to be forthcoming stating he was not taking any medications, had no health problems, knew how old his parents were, but denied they had any health problems. He declined to name a proxy or power of transformer stock clerk for health care. Head CT IMPRESSION: No acute intracranial hemorrhage. At least moderate intracranial atherosclerosis. Global cerebral volume loss and chronic microvascular ischemic changes. Chest xray and C-spine xray were unremarkable per the reading. Patient was afebrile, blood pressure 157/80, heart rate 80, respiratory rate 31, oxygen saturation 95% on room air, he weighs 75 kg the BMI of 20.8. WBC is unremarkable, PT INR is within normal limits, his glucose is elevated at 139, initial presenting lactate was 4.5 and is now 2.8, bilirubin is 2.2, AST 140, ALT 71, ammonia is within normal limits, total CK is 1183, CK-MB is 9.05, troponin is within normal limits, has positive bilirubin in his urine, remainder of UA is negative for UTI, but urine tox screen is negative, COVID-19 PCR is negative. Patient's PCP is Dr. Wyman who requested that we assume care of the patient's hospitalization. In review of his notes, the patient was here for alcohol withdrawal about 1 year ago. I further reviewed records from [facility] where the patient had coded in the ED and [place], central line was presumably placed in his subclavian vein. The patient was resuscitated from his code and was transferred to [facility]. While over at [facility], the central line was found to be in the subclavian artery and the patient was transferred to [facility] for removal of the catheter and placement of a stent and stayed there for approximately 18 or 19 days. The patient does continue to ask questions about that hospitalization and stated in earlier notes that he was angry about it. Discharge Providers Provider Date of admission: 03/09/21 17:05 Discharge Date: 03/18/21 Primary care physician: Jose Wyman MD Consults: 03/09/21 18:11 Consult to Dietitian, Adult Routine Comment: Reason For Exam: alcohol withdrawl 03/11/21 06:30 Consult to Respiratory Therapy Evaluate & Treat Comment: Poss asp Physician Instructions: Evaluate and treat 03/11/21 23:01 Consult to Respiratory Therapy Evaluate & Treat Comment: may require suctioning Physician Instructions: Evaluate and treat 03/12/21 13:42 Consult to Speech Therapy Evaluate & Treat Comment: cough with foods, aspiration pneumonia EtOH withdr Physician Instructions: Evaluate and treat 03/13/21 09:29 Consult to Dietitian, Adult Routine Comment: Reason For Exam: Aspiration, probable chronic malnutrition, now NPO 03/13/21 10:18 Consult to Occupational Therapy Evaluate & Treat Comment: Physician Instructions: Evaluate and treat Consult to Physical Therapy Evaluate & Treat Comment: Physician Instructions: Evaluate and Treat 03/14/21 04:26 Consult to Respiratory Therapy Evaluate & Treat Comment: Cough SOB Physician Instructions: Evaluate and treat Discharge provider: Devin Huff MD Summary Hospital Course Discharge Diagnosis: 1. Acute alcohol withdrawal 2. Hypokalemia 3. Acute respiratory failure with hypoxemia 4. Aspiration pneumonitis 5. Rhabdomyolysis 6. NAVEEN 7. Stage 1 pressure injury to right lower calf 8. Essential hypertension 9. Hypothyroidism 10. Alcoholic hepatitis 11. Metabolic encephalopathy Hospital Course: Mr. Simpson came in initially after being found down on the ground, confused. He was diagnosed on admission with acute alcohol withdrawal and was started on medication for this with librium. He did appear to get oversedated from this so it was discontinued, he had some swallowing difficulties while overmedicated, was seen by speech therapy and had improvement prior to discharge. Throughout his hospitalization he was slow in thought, and generally weak. Initially when he came in he was found to have aspiration pneumonitis, but not pneumonia. He had mild rhabdomyolysis with NAVEEN that resolved with IV fluids, he had pressure injury on his calf, presumably from being down on the ground for an extended period of time. He had mild alcoholic hepatitis that resolved. He did have slow improvement in his mental status, and he was started on losartan for blood pressure, his blood pressure was still high so carvedilol was added. However, patient appeared to have a transient drop in his blood pressure, where he became unresponsive for a few minutes and was hypotensive. He was given fluids and quickly returned to normal. Labs, CT head, EKG showed no acute problems. Because of this he was only discharged on losartan with blood pressures on the slightly higher side of 150s. He was quite deconditioned so was discharged to SNF for PT. He expressed to staff disinterest in stopping drinking and admitted to drinking at least 9-10 beers and whiskey daily and it was clearly told to him that this will continue to cause deterioration in his health. Exam Vital Signs (past 8 hours): Oxygen Delivery Method Room Air Oxygen Flow Rate 0 Narrative Exam Narrative: Gen: chronically ill appearing, no acute distress Resp: clear bilaterally CV: regular rate and rhythm, no murmur or rubs Abd: soft, non-tender, normal bowel sounds Skin: multiple abrasions on skin Neuro: alert, oriented, speech is clear and brief. Extremities: moves all four extremities Psyche: normal mood and affect. Objective Labs Result Diagrams: 03/17/21 05:00 03/17/21 05:00 [facility] Medical History Alcohol dependence Anoxic brain injury Cardiomyopathy Cataracts, bilateral (2007) Chronic cough (1999) COPD (chronic obstructive pulmonary disease) Dislocated elbow (2000) Dislocated shoulder (2001) Eczema (2017) Elevated liver function tests Essential hypertension Fractures (~1963) GERD (gastroesophageal reflux disease) Hypothyroidism Impaired vision Paroxysmal atrial fibrillation Pulmonary nodule (~07/2019) Surgical History History of cataract removal with insertion of prosthetic lens History of nasal surgery (1963) History of repair of hiatal hernia Hx of hernia repair (1995) Family History Father History of arteriosclerotic cardiovascular disease History of emphysema Mother Cancer Grandfather No problems noted. Grandmother Stroke Grandfather No problems noted. Grandmother No problems noted. Social History household members: none Smoking Status: Current every day smoker Tobacco: How many years used: 22 quit status: not considering quitting second hand exposure: No alcohol intake: current substance use type: does not use Discharge Plan Discharge Plan Patient Disposition: SNF Transfer to: [facility] Provider Discharge Comment: Mr. Simpson came in to the hospital with alcohol withdrawal, confusion, kidney injury, but these all resolved by time of discharge. However he did have some mild swallowing difficulty and worsened difficulty with ambulation. Physical therapy recommended discharge to SNF for additional PT/OT and speech therapy. Discharge orders & Medications Prescriptions: New folic acid 1 mg Tablet 1 mg PO DAILY Qty: 30 RF: 0 losartan 25 mg Tablet 25 mg PO DAILY Qty: 30 RF: 0 multivitamin with folic acid [Tab-A-Keren] 400 mcg Tablet 1 tab PO DAILY Qty: 30 RF: 0 omeprazole 40 mg capsule,delayed release(DR/EC) 40 mg PO DAILY Qty: 30 RF: 0 Continued levothyroxine [Synthroid] 75 mcg tablet 75 mcg PO QDAY Qty: 90 RF: 3 Follow up/Referrals: Jose Wymna MD [Primary Care Provider] - Diet/Activity/Treatments Diet: Regular Liquid consistency: [place] Consistency Food texture: Blenderized or pureed Special Rehabilitation Services Rehab type: Physical therapy, Occupational therapy and Speech therapy Discharge Data Primary Care Provider: Jose Wyman Quality VTE Deep Vein Thrombosis/Pulmonary Embolism Present on Admission: No
--- NOTE | 2021-03-17 13:26 | ST.IPDYTX ---
Visit Care Team Role Provider Type Jose Wyman MD Other Providers Physician Primary Care Provider Specialty: Internal Medicine Address: [address] [place] [address], [address], [place], [address] Email: [email or web address] Hand DO Emergency Provider Physician Referring Provider Specialty: Emergency Medicine Address: [address] [place] [address], [address] Email: [email or web address] Admit Provider Physician Attending Provider Other Providers Specialty: Internal Medicine Address: [address] [place] [address], [id number] Email: [email or web address] SENIOR PROJECT ARCHITECT Dysphagia Treatment SENIOR PROJECT ARCHITECT Dysphagia Treatment Start: 03/12/21 15:52 Freq: Status: Active Protocol: Document 03/17/21 13:13 TLC (Rec: 03/17/21 13:26 TLC [id number]) Dysphagia Treatment Session Time Visit Start Time 12:45 Visit Stop Time 13:10 Total Visit Minutes 25 Setting Assessment Location Acute Care Visit Type Note Type Discharge Summary Treatment Liquids Trialed Ice chips,Thin Administration Type Tea Spoon,Cup Single Sip,Self- Feeding Oral Strategies Upright at 90 degrees, Controlled Bite/Sip Size Pharyngeal Strategies Small Bites and Sips Treatment Activities Trialed ice chips and thin liquids to assess safety for diet upgrade. Patient was observed to have wet cough following cup sips of thin liquids. Observed anterior loss of saliva on multiple occasions during conversation which patient was aware of and wiped with a cloth. When asked, patient felt this was related to his mustache being so long and needing to be trimmed. Observed white film on tongue and set patient up to complete oral care. Patient able to maintain lip seal and for swish and spit without overt difficulty. Assessed patient' s cognition informally through conversation and orientation questions. Patient was not oriented to year or date. 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 He does not drive. Assessment Patient Response to Treatment Good Rehab Potential Fair Assessment of Improvement Patient has visible difficulty managing his saliva and he is likely aspirating. He denies any lip numbness or weakness. Observed moderate cognitive impairments in conversation and per OT, patient was unable to complete SLUMs stating it was too difficult. Per previous SENIOR PROJECT ARCHITECT notes, patient is not compliant with recommended safe swallow strategies. Patient will need ongoing SENIOR PROJECT ARCHITECT at discharge including external memory aids as well as pharyngeal strengthening exercises given his cognitive impairments and dysphagia. Diet Recommendations Recommendations Continue Current Diet Liquids Order [place] Diet Order Dysphagia Mechanical Medication Recommendations As Tolerated Additional Dietary Needs Controlled Sips,Reminders to Use Strategies Aspiration Precautions Recommended Precautions Upright at 90 Degrees,Small Bites/Sips Treatment Plan Placement Recommendation after Discharge [facility] Facility Therapy Recommendations Patient is being discharged to SNF today. Recommend ongoing SENIOR PROJECT ARCHITECT at SNF.
--- NOTE | 2021-03-17 14:06 | OT.IPNOTE ---
Checked with nursing to see pt for OT. Per nursing pt resting comfortably and best not to see pt as he will be discharging soon.
--- NOTE | 2021-03-17 14:32 | CM.DPNOTE ---
Faxed referral packet to [facility] at Tressa's request and received fax confirm. Jazmin Reyes CM Asst.
--- NOTE | 2021-03-18 14:54 | CM.DPNOTE ---
Late entry. Faxed DC summary to [facility] and received fax request. Jazmin Reyes CM Asst.
== END 2021-03-17 15:12 | DRG 896 ==
LOC: ED 14:25 → AC 17:20 → ICU 03-10 00:17 → AC 03-10 15:17 → ICU 03-10 15:17
PROVIDERS: Internal Medicine; Nurse Practitioner Family; Admitting Provider Internal Medicine; Emergency Provider Emergency Medicine; PCP Internal Medicine; Referring Provider Emergency Medicine; Visit Provider Internal Medicine
DX: F10.231 Alcohol dependence with withdrawal delirium (principal); J96.01 Acute respiratory failure with hypoxia; J69.0 Pneumonitis due to inhalation of food and vomit; G93.41 Metabolic encephalopathy; M62.82 Rhabdomyolysis; K70.10 Alcoholic hepatitis without ascites; Y90.0 Blood alcohol level of less than 20 mg/100 ml; R74.01 Elevation of levels of liver transaminase levels; L89.896 Pressure-induced deep tissue damage of other site; F17.210 Nicotine dependence, cigarettes, uncomplicated; I10 Essential (primary) hypertension; E03.9 Hypothyroidism, unspecified; K21.9 Gastro-esophageal reflux disease without esophagitis; Z20.822 Contact with and (suspected) exposure to COVID-19
CPT/HCPCS: 36415; 36600; 70450; 71045; 72125; 74230; 80048; 80053; 80076; 80305; 80320; 81001; 81003; 82140; 82550; 82553; 82805; 83605; 83690; 83735; 84132; 84484; 85025; 85027; 85610; 85730; 87635; 87797; 90471; 92526; 92610; 92611; 93005; 93010; 94640; 94760; 96361; 96374; 97116; 97162; 97166; 97530; 97535; 99284; C9803; 90715; J1650; J2060; J2560; J3475; J7613

== ENCOUNTER → 2021-05-19 10:04 | Outpatient (CLI) | payer MEDICARE, MEDICAID, SELFPAY ==
[2020-02-23 11:45] VITALS: PULSE 67; RESP 20; O2SAT 100
[2021-03-10 08:00] VITALS: BMI 23.7
[2021-05-19 11:18] LABS: Alanine Aminotransferase 16 IU/L (<50); Albumin 4.6 g/dL (3.5-5.0); Albumin Globulin Ratio 1.2 (1.0-2.8); Alkaline Phosphatase 88 U/L (38-126); Aspartate Aminotransferase 44 IU/L (17-59); BUN Creatinine Ratio 12.2 (6-22); Bilirubin Total 1.1 mg/dL (0.2-1.3); Blood Urea Nitrogen 5 mg/dL (9-20); Calcium 9.1 mg/dL (8.4-10.2); Carbon Dioxide 26 mmol/L (22-32); Chloride 99 mmol/L (98-107); Estimated Glomerular Filt Rate > 60.0 mL/min (>60); Ethanol (ETOH) 24 mg/dL; Globulin 3.9 g/dL (1.7-4.1); Glucose 92 mg/dL (80-110); Sodium 131 mmol/L (137-145); Total Protein 8.5 g/dL (6.3-8.2)
[2021-05-19 11:24] LABS: HEMOLYSIS 112 (0-50); Potassium 5.6 mmol/L (3.4-5.1)
[2021-05-19 11:47] LABS: TSH w/ Reflex to FT4 1.55 uIU/mL (0.47-4.68)
== END ==
PROVIDERS: PCP Internal Medicine; Referring Provider Internal Medicine; Visit Provider Internal Medicine
DX: I10 Essential (primary) hypertension (principal); I42.6 Alcoholic cardiomyopathy; F10.20 Alcohol dependence, uncomplicated
CPT/HCPCS: 36415; 80053; 80320; 84443

== ENCOUNTER → 2022-02-19 09:33 | Outpatient (CLI) | payer MEDICARE, MEDICAID, SELFPAY ==
[2020-02-23 11:45] VITALS: PULSE 67; RESP 20; O2SAT 100
[2021-03-10 08:00] VITALS: BMI 23.7
[2022-02-19 10:21] LABS: Add Manual Diff / Slide Review NO; Basophils Absolute Auto 0 /uL (0-100); Basophils Percent Auto 0.4 % (0-2); Eosinophils Absolute Auto 100 /uL (0-450); Eosinophils Percent Auto 2.6 % (2-4); Hematocrit 45.1 % (41-53); Hemoglobin 15.9 g/dL (13.5-17.5); Lymphocytes Absolute Auto 1200 /uL (1100-4500); Lymphocytes Percent Auto 31.8 % (25-40); Mean Corpuscular HGB Conc 35.2 % (30-36); Mean Corpuscular Hemoglobin 35.3 PG (26-34); Mean Corpuscular Volume 100.3 fL (80-100); Monocytes Absolute Auto 500 /uL (0-900); Monocytes Percent Auto 13.8 % (3-14); Neutrophils Absolute Auto 1900 /uL (1500-7000); Neutrophils Percent Auto 51.4 % (50-75); Platelet Count 207 X10^3/uL (150-400); Red Cell Distribution Width 11.9 % (11.6-14.8); White Blood Cell Count 3.6 X10^3/uL (4.5-11.0)
[2022-02-19 10:36] LABS: Carbon Dioxide 26 mmol/L (22-32); Chloride 94 mmol/L (98-107); Glucose 104 mg/dL (80-110); HEMOLYSIS < 15 (0-50); Potassium 4.1 mmol/L (3.4-5.1); Sodium 131 mmol/L (137-145)
[2022-02-19 10:38] LABS: Alanine Aminotransferase 30 IU/L (<50); Albumin 4.1 g/dL (3.5-5.0); Albumin Globulin Ratio 1.1 (1.0-2.8); Alkaline Phosphatase 103 U/L (38-126); Aspartate Aminotransferase 73 IU/L (17-59); Bilirubin Total 0.9 mg/dL (0.2-1.3); Calcium 8.4 mg/dL (8.4-10.2); Estimated Glomerular Filt Rate > 60 mL/min (>60); Globulin 3.6 g/dL (1.7-4.1); Total Protein 7.7 g/dL (6.3-8.2)
[2022-02-19 10:39] LABS: BUN Creatinine Ratio 4.4 (6-22); Blood Urea Nitrogen < 2 mg/dL (9-20)
[2022-02-19 10:55] LABS: Free T4, Direct Thyroxine 1.14 ng/dL (0.78-2.19)
[2022-02-19 11:09] LABS: Thyroid Stimulating Hormone 3.45 uIU/mL (0.47-4.68)
== END ==
PROVIDERS: PCP Internal Medicine; Referring Provider Internal Medicine; Visit Provider Internal Medicine
DX: E03.9 Hypothyroidism, unspecified (principal); I10 Essential (primary) hypertension; I48.0 Paroxysmal atrial fibrillation
CPT/HCPCS: 36415; 80053; 84439; 84443; 85025

== ENCOUNTER 2022-02-24 10:28 | Emergency (ER) | payer MEDICARE, MEDICAID, SELFPAY ==
[2020-02-23 11:45] VITALS: PULSE 67; RESP 20; O2SAT 100
[2021-03-10 08:00] VITALS: BMI 23.7
[2022-02-24 10:31] VITALS: BP 178/104; PULSE 76; RESP 16; TEMP 36.5; O2SAT 96; BMI 22.9
--- NOTE | 2022-02-24 11:12 | ED.FALL ---
HPI - Fall General Chief Complaint: Fall Stated Complaint: Fall Time Seen by Provider: 02/24/22 11:11 Source: patient Mode of arrival: EMS History of Present Illness HPI Narrative: The patient is a 66-year-old male history of hypertension hypothyroid and alcohol abuse presenting today with increasing falls and needing more help at home. He states he fell at home earlier is this week. He really does not have any more complaints. He states back in September he was able to walk himself to the store and get things but really over the last few months since September he is not able to walk to the store. He admits he continues to drink alcohol every day. PCP reports that he is struggling more in more at home. He lives independently at an apartment in town. Struggles to keep clean. Struggles to do shopping. He has previously had episodes of hypotension while withdrawing from alcohol he had also been lost to follow-up. He is looking for more help and support at home. He has a small abrasion on the right side of his head from a fall earlier this week. He otherwise just feels generally more fatigued than normal but no specific complaints. Denies fever chills. No worsening shortness of breath no chest pain no nausea no vomiting no other injuries from falls. Related Data Previous Rx's Medication Instructions Recorded losartan 25 mg tablet 25 mg PO DAILY #90 tabs 05/22/21 omeprazole 20 mg capsule,delayed 20 mg PO DAILY #30 caps 05/25/21 release carvedilol 3.125 mg tablet 3.125 mg PO BID #180 tabs 07/21/21 levothyroxine 75 mcg tablet 75 mcg PO QDAY #90 tabs 07/21/21 (Synthroid) Allergies Allergy/AdvReac Type Severity Reaction Status Date / Time ciprofloxacin [From CIPRO] Allergy Severe SWELLING Verified 02/24/22 10:39 IN HANDS, ARMS, LEGS AND FEET pantoprazole AdvReac Intermediate n/v, Verified 02/24/22 10:39 omeprazole okay Review of Systems Review of Systems Narrative: GENERAL: Denies chills, fatigue, malaise, fever, sweats, travel HEENT: Denies sinus pain, ear pain, sore throat, difficulty swallowing, neck pain RESPIRATORY: Denies dyspnea, cough, wheezing, hemoptysis, sputum. CARDIOVASCULAR: Denies chest pain, palpitations, orthopnea, edema GASTROINTESTINAL: Denies nausea, vomiting, abdominal pain, diarrhea, constipation, melena. : Denies dysuria, frequency, incontinence, hematuria, urinary retention, flank pain. MUSCULOSKELETAL: Denies weakness, joint pain, or bony pain SKIN: No rash, no erythema, no pruritus NEUROLOGIC: See HPI PSYCHIATRIC: See HPI 12 point review of systems is negative except for those stated above and HPI Patient History Medical History Alcohol dependence Alcoholism Anoxic brain injury Cardiomyopathy Cataracts, bilateral (2007) Chronic cough (1999) COPD (chronic obstructive pulmonary disease) Dislocated elbow (2000) Dislocated shoulder (2001) Eczema (2017) Elevated liver function tests Essential hypertension Fractures (~1963) GERD (gastroesophageal reflux disease) Hypothyroidism Impaired vision Paroxysmal atrial fibrillation Pulmonary nodule (~07/2019) Surgical History History of cataract removal with insertion of prosthetic lens History of nasal surgery (1963) History of repair of hiatal hernia Hx of hernia repair (1995) Family History Father History of arteriosclerotic cardiovascular disease History of emphysema Mother Cancer Grandfather No problems noted. Grandmother Stroke Grandfather No problems noted. Grandmother No problems noted. Social History household members: none Smoking Status: Current every day smoker Tobacco: How many years used: 22 quit status: not considering quitting second hand exposure: No alcohol intake: current substance use type: does not use Smoking Status: Current every day smoker alcohol intake frequency: 3 or more drinks per day Alcohol type: beer and hard liquor Substance Use Type: does not use Exam Initial Vital Signs Initial Vital Signs: Vital Signs Temperature 97.7 F 02/24/22 10:31 Pulse Rate 76 02/24/22 10:31 Respiratory Rate 16 02/24/22 10:31 Blood Pressure 178/104 H 02/24/22 10:31 Pulse Oximetry 96 02/24/22 10:31 Oxygen Delivery Method 02/24/22 10:31 GENERAL: Alert pleasant 66-year-old male currently talking on cell phone appears in no acute distress HEENT: Head very small abrasion over right side of his,EOMI, pupils reactive, face symmetric, moist mucous membranes CARDIOVASCULAR: Regular rate and rhythm without murmurs, rubs or gallops. RESPIRATORY: Breath sounds equal bilaterally, no wheezes rales or rhonchi. ABDOMEN: Soft, nontender. Normoactive bowel sounds all 4 quadrants. No guarding or rebound. EXTREMITIES: Normal range of motion, no clubbing or edema. Neurovascularly intact NEUROLOGICAL: Alert and oriented x4. Escalator Mechanic strength equal bilaterally is able to move lower extremities. No ataxia no asterixis SKIN: Warm, dry, no laceration, no petechiae, no rashes or lesions. Course Orders Ordered: ED Orders 02/24/22 10:37 Consult to WEIGHT CLERK - Grants Administrator Stat 02/24/22 11:17 CT head/brain wo con Stat 02/24/22 11:19 XR chest 1V Stat 02/24/22 11:37 Urine Drug Screen, Rapid Stat 02/24/22 11:39 COVID19 -Nasal RAPID/Pre-Proc Stat 02/24/22 11:54 Comprehensive Metabolic Panel Stat ETOH [Ethanol (ETOH)] Stat Lipase Stat Partial Thromboplastin Time Stat Prothrombin Time INR Stat TSH [Thyroid Stimulating Hormone] Stat Troponin & CK Cardiac Panel Stat 02/24/22 12:39 Complete Blood Count AUTO DIFF Stat Vital Signs Vital signs: Vital Signs - 8 hr 02/24/22 12:32 02/24/22 14:08 Pulse Rate 69 88 Respiratory Rate 18 Blood Pressure 173/93 H 186/123 H Pulse Oximetry 95 94 Oxygen Delivery Method Room Air Room Air MDM - Fall Lab Data Result diagrams: 02/24/22 12:39 02/24/22 11:54 Labs: Lab Results 02/24/22 02/24/22 02/24/22 Range/Units 11:37 11:39 11:54 WBC (4.5-11.0) X10^3/uL RBC (4.5-5.9) X10^6/uL Hgb (13.5-17.5) g/dL Hct (41-53) % MCV (80-100) fL MCH (26-34) PG MCHC (30-36) % RDW (11.6-14.8) % Plt Count (150-400) X10^3/uL Neut % (Auto) (50-75) % Lymph % (Auto) (25-40) % [place] % (Auto) (3-14) % Eos % (Auto) (2-4) % Baso % (Auto) (0-2) % Neut # (Auto) (4469-2659) /uL Lymph # (Auto) (6556-7782) /uL [place] # (Auto) (0-900) /uL Eos # (Auto) (0-450) /uL Baso # (Auto) (0-100) /uL PT 11.3 (10.1-12.7) SECONDS INR 1.0 (0.9-1.3) APTT 34 (26.4-36.2) SECONDS Sodium (137-145) mmol/L Potassium (3.4-5.1) mmol/L Chloride (98-107) mmol/L Carbon Dioxide (22-32) mmol/L BUN (9-20) mg/dL Creatinine (0.66-1.25) mg/dL Estimated GFR (>60) mL/min BUN/Creatinine Ratio (6-22) Glucose (80-110) mg/dL Calcium (8.4-10.2) mg/dL Total Bilirubin (0.2-1.3) mg/dL AST (17-59) IU/L ALT (<50) IU/L Alkaline Phosphatase (38-126) U/L Total Creatine Kinase (55-170) U/L CK-MB (CK-2) CK-MB (CK-2) Rel Index Troponin I (0.01-0.034) ng/mL Total Protein (6.3-8.2) g/dL Albumin (3.5-5.0) g/dL Globulin (1.7-4.1) g/dL Albumin/Globulin Ratio (1.0-2.8) Lipase (23-300) U/L TSH (0.47-4.68) uIU/mL U Opiates 300ng/mL cut Negative (Negative) Ur Oxycodone Screen Negative (Negative) Urine Methadone Screen Negative (Negative) Ur Barbiturates Screen Negative (Negative) U Tricyclic Antidepress Negative (Negative) Ur Phencyclidine Scrn Negative (Negative) Ur Amphetamines Screen Negative (Negative) U Methamphetamines Scrn Negative (Negative) Ur MDMA Scrn (Ecstasy) Negative (Negative) U Benzodiazepines Scrn Negative (Negative) Urine Cocaine Screen Negative (Negative) U Marijuana (THC) Screen Negative (Negative) Ethyl Alcohol ( - 10) mg/dL SARS-CoV-2 (PCR) Negative (Negative) 02/24/22 02/24/22 02/24/22 Range/Units 11:54 11:54 11:54 WBC (4.5-11.0) X10^3/uL RBC (4.5-5.9) X10^6/uL Hgb (13.5-17.5) g/dL Hct (41-53) % MCV (80-100) fL MCH (26-34) PG MCHC (30-36) % RDW (11.6-14.8) % Plt Count (150-400) X10^3/uL Neut % (Auto) (50-75) % Lymph % (Auto) (25-40) % [place] % (Auto) (3-14) % Eos % (Auto) (2-4) % Baso % (Auto) (0-2) % Neut # (Auto) (4415-0379) /uL Lymph # (Auto) (6427-5559) /uL [place] # (Auto) (0-900) /uL Eos # (Auto) (0-450) /uL Baso # (Auto) (0-100) /uL PT (10.1-12.7) SECONDS INR (0.9-1.3) APTT (26.4-36.2) SECONDS Sodium 134 L (137-145) mmol/L Potassium 4.1 (3.4-5.1) mmol/L Chloride 99 (98-107) mmol/L Carbon Dioxide 26 (22-32) mmol/L BUN < 2 L (9-20) mg/dL Creatinine 0.46 L (0.66-1.25) mg/dL Estimated GFR > 60 (>60) mL/min BUN/Creatinine Ratio 4.3 L (6-22) Glucose 103 (80-110) mg/dL Calcium 8.0 L (8.4-10.2) mg/dL Total Bilirubin 0.9 (0.2-1.3) mg/dL AST 115 H (17-59) IU/L ALT 35 (<50) IU/L Alkaline Phosphatase 104 (38-126) U/L Total Creatine Kinase 64 (55-170) U/L CK-MB (CK-2) TNP CK-MB (CK-2) Rel Index TNP Troponin I < 0.012 (0.01-0.034) ng/mL Total Protein 8.3 H (6.3-8.2) g/dL Albumin 4.2 (3.5-5.0) g/dL Globulin 4.1 (1.7-4.1) g/dL Albumin/Globulin Ratio 1.0 (1.0-2.8) Lipase 107 (23-300) U/L TSH 2.76 (0.47-4.68) uIU/mL U Opiates 300ng/mL cut (Negative) Ur Oxycodone Screen (Negative) Urine Methadone Screen (Negative) Ur Barbiturates Screen (Negative) U Tricyclic Antidepress (Negative) Ur Phencyclidine Scrn (Negative) Ur Amphetamines Screen (Negative) U Methamphetamines Scrn (Negative) Ur MDMA Scrn (Ecstasy) (Negative) U Benzodiazepines Scrn (Negative) Urine Cocaine Screen (Negative) U Marijuana (THC) Screen (Negative) Ethyl Alcohol 217 H ( - 10) mg/dL SARS-CoV-2 (PCR) (Negative) 02/24/22 Range/Units 12:39 WBC 4.7 (4.5-11.0) X10^3/uL RBC 4.61 (4.5-5.9) X10^6/uL Hgb 16.2 (13.5-17.5) g/dL Hct 46.2 (41-53) % MCV 100.1 H (80-100) fL MCH 35.1 H (26-34) PG MCHC 35.1 (30-36) % RDW 12.3 (11.6-14.8) % Plt Count 173 (150-400) X10^3/uL Neut % (Auto) 64.9 (50-75) % Lymph % (Auto) 23.7 L (25-40) % [place] % (Auto) 9.7 (3-14) % Eos % (Auto) 1.1 L (2-4) % Baso % (Auto) 0.6 (0-2) % Neut # (Auto) 3000 (5578-9791) /uL Lymph # (Auto) 1100 (0015-3326) /uL [place] # (Auto) 500 (0-900) /uL Eos # (Auto) 100 (0-450) /uL Baso # (Auto) 0 (0-100) /uL PT (10.1-12.7) SECONDS INR (0.9-1.3) APTT (26.4-36.2) SECONDS Sodium (137-145) mmol/L Potassium (3.4-5.1) mmol/L Chloride (98-107) mmol/L Carbon Dioxide (22-32) mmol/L BUN (9-20) mg/dL Creatinine (0.66-1.25) mg/dL Estimated GFR (>60) mL/min BUN/Creatinine Ratio (6-22) Glucose (80-110) mg/dL Calcium (8.4-10.2) mg/dL Total Bilirubin (0.2-1.3) mg/dL AST (17-59) IU/L ALT (<50) IU/L Alkaline Phosphatase (38-126) U/L Total Creatine Kinase (55-170) U/L CK-MB (CK-2) CK-MB (CK-2) Rel Index Troponin I (0.01-0.034) ng/mL Total Protein (6.3-8.2) g/dL Albumin (3.5-5.0) g/dL Globulin (1.7-4.1) g/dL Albumin/Globulin Ratio (1.0-2.8) Lipase (23-300) U/L TSH (0.47-4.68) uIU/mL U Opiates 300ng/mL cut (Negative) Ur Oxycodone Screen (Negative) Urine Methadone Screen (Negative) Ur Barbiturates Screen (Negative) U Tricyclic Antidepress (Negative) Ur Phencyclidine Scrn (Negative) Ur Amphetamines Screen (Negative) U Methamphetamines Scrn (Negative) Ur MDMA Scrn (Ecstasy) (Negative) U Benzodiazepines Scrn (Negative) Urine Cocaine Screen (Negative) U Marijuana (THC) Screen (Negative) Ethyl Alcohol ( - 10) mg/dL SARS-CoV-2 (PCR) (Negative) Imaging Data CT scan - head: Radiologist's Impression: CT Scan Report Signed Patient: Shmuel Simpson I MR#: [id number] : 1955 Acct:[id number] Age/Sex: 66 / M Date of Service: 02/24/22 Loc: ED Accession Number: [id number] ?? Procedure: CT head/brain wo con Ordering Provider: Mimi Brown D.O. PROCEDURE:? CT HEAD/BRAIN WO CON ? INDICATIONS:? falls HIT RIGHT FOREHEAD ? TECHNIQUE:? Noncontrast 4.5 mm thick angled axial sections acquired from the foramen magnum to the vertex, with coronal and sagittal reformats.? For radiation dose reduction, the following was used:? automated exposure control, adjustment of mA and/or kV according to patient size.? ? COMPARISON:? [facility], CT, CT HEAD/BRAIN WO CON, 03/16/2021, 11:48. ? FINDINGS:? Image quality:? Excellent.? ? CSF spaces:? Basal cisterns are patent.? No extra-axial fluid collections.? The ventricles are symmetric in size and shape.? ? Brain:? No intracranial bleeds or masses.? There is cerebral volume loss for age, with resultant ventricular and sulcal prominence.? There are periventricular and deep white matter chronic small vessel ischemic changes.? There is intracranial internal carotid artery atherosclerosis.? ? Skull and face:? Calvarium and visualized facial bones appear intact, without suspicious lesions.? Small right frontal scalp ? Sinuses:? Visualized sinuses demonstrate mild mucosal thickening within the right maxillary sinus. ? IMPRESSION:? ? 1. No acute intracranial process. ? 2. Moderate atrophy and chronic microvascular ischemic changes. ? ? ? Dictated by: Damari Mirza M.D. on 02/24/2022 at 11:54 ? ? Chest x-ray: Radiologist's Impression: PROCEDURE:? XR CHEST 1V ? INDICATIONS:? chest pain ? TECHNIQUE:? One view of the chest was acquired.? ? COMPARISON:? [facility], CR, XR CHEST 1V, 03/11/2021, 6:34. ? FINDINGS:? ? Surgical changes and devices:? None.? ? Lungs and pleura:? There is blunting of the right costophrenic angle slightly more prominent when compared to prior exam. ? Mediastinum:? Mediastinal contours appear normal.? Heart size is mildly prominent. ? Bones and chest wall:? There is slight irregularity of the 8th and 9th right lateral ribs.? Overlying soft tissues appear unremarkable.? ? IMPRESSION:? Slight blunting of the right costophrenic angle suggestive of minimal effusion versus scarring.. ? There is irregularity of the adjacent right lateral 7th and 8th ribs somewhat overlapping secondary to positioning.? Recommend correlation point tenderness as nondisplaced fracture within this region cannot be definitively excluded and as indicated the rib series may be obtained.? ? Dictated by: Damari Mirza M.D. on 02/24/2022 at 12:08 MDM Narrative Medical decision making narrative: Patient reports falling, workup today is negative. He is found to be happen elevated alcohol level but it he is awake and alert. He is able to ambulate in the ED. He apparently has a walker at home which he sometimes uses. He is able to use our is in the ED. social work has been in to see and evaluate him PCP has already set up home health care for him in fact even called him while he was here in the emergency department. At this time he does not meet any sort of admission criteria move. Patient wants to go home in he has help coming. Discharge Plan Departure Patient Disposition: Home Clinical Impression: Alcohol intoxication Instructions: How to Prevent Falls Activity Restrictions/Additional Instructions: *You have been diagnosed with alcohol intoxication *What to do: Please use walker to help prevent falls. You have been set up with home health by her primary care provider. *Continue to take medications as directed *Follow up with your primary care provider in 2-3 days or call [phone] *Return to ER if you should have falls, chest pain, head injury or any new, worsening or concerning symptoms Prescriptions: No Action losartan 25 mg tablet 25 mg PO DAILY Qty: 90 3RF omeprazole 20 mg capsule,delayed release(DR/EC) 20 mg PO DAILY Qty: 30 6RF levothyroxine [Synthroid] 75 mcg tablet 75 mcg PO QDAY Qty: 90 3RF carvedilol 3.125 mg tablet 3.125 mg PO BID Qty: 180 3RF Rx Instructions: must administer with a meal/food Referrals: Jose Wyman MD [Primary Care Provider] - Visit Report Forms: Patient Portal/API
--- NOTE | 2022-02-24 11:17 | DI.CT.S_ITS ---
PROCEDURE: CT HEAD/BRAIN WO CON INDICATIONS: falls HIT RIGHT FOREHEAD TECHNIQUE: Noncontrast 4.5 mm thick angled axial sections acquired from the foramen magnum to the vertex, with coronal and sagittal reformats. For radiation dose reduction, the following was used: automated exposure control, adjustment of mA and/or kV according to patient size. COMPARISON: [facility], CT, CT HEAD/BRAIN WO CON, 03/16/2021, 11:48. FINDINGS: Image quality: Excellent. CSF spaces: Basal cisterns are patent. No extra-axial fluid collections. The ventricles are symmetric in size and shape. Brain: No intracranial bleeds or masses. There is cerebral volume loss for age, with resultant ventricular and sulcal prominence. There are periventricular and deep white matter chronic small vessel ischemic changes. There is intracranial internal carotid artery atherosclerosis. Skull and face: Calvarium and visualized facial bones appear intact, without suspicious lesions. Small right frontal scalp Sinuses: Visualized sinuses demonstrate mild mucosal thickening within the right maxillary sinus. IMPRESSION: 1. No acute intracranial process. 2. Moderate atrophy and chronic microvascular ischemic changes. Dictated by: Damari Mirza M.D. on 02/24/2022 at 11:54 Approved by: Damari Mirza M.D. on 02/24/2022 at 11:59
--- NOTE | 2022-02-24 11:19 | DI.RAD.S_ITS ---
PROCEDURE: XR CHEST 1V INDICATIONS: chest pain TECHNIQUE: One view of the chest was acquired. COMPARISON: [facility], CR, XR CHEST 1V, 03/11/2021, 6:34. FINDINGS: Surgical changes and devices: None. Lungs and pleura: There is blunting of the right costophrenic angle slightly more prominent when compared to prior exam. Mediastinum: Mediastinal contours appear normal. Heart size is mildly prominent. Bones and chest wall: There is slight irregularity of the 8th and 9th right lateral ribs. Overlying soft tissues appear unremarkable. IMPRESSION: Slight blunting of the right costophrenic angle suggestive of minimal effusion versus scarring.. There is irregularity of the adjacent right lateral 7th and 8th ribs somewhat overlapping secondary to positioning. Recommend correlation point tenderness as nondisplaced fracture within this region cannot be definitively excluded and as indicated the rib series may be obtained. Dictated by: Damari Mirza M.D. on 02/24/2022 at 12:08 Approved by: Damari Mirza M.D. on 02/24/2022 at 12:12
[2022-02-24 12:00] LABS: UR Morphine/Opiate cutoff 300 Negative (Negative); Ur Creatinine Normal (Normal); Ur Specific Gravity Normal (Normal); Urine Amphetamines Negative (Negative); Urine Barbiturates Negative (Negative); Urine Benzodiazepines Negative (Negative); Urine Cocaine Negative (Negative); Urine MDMA Negative (Negative); Urine Methadone Negative (Negative); Urine Methamphetamines Negative (Negative); Urine Oxycodone Negative (Negative); Urine Phencyclidine Negative (Negative); Urine Tetrahydrocannabinol Negative (Negative); Urine Tricyclic Antidepressant Negative (Negative); Urine pH Normal (Normal)
[2022-02-24 12:07] LABS: Prothrombin Time 11.3 SECONDS (10.1-12.7)
[2022-02-24 12:10] LABS: PTT Partial Thromboplastin Tim 34 SECONDS (26.4-36.2)
[2022-02-24 12:12] LABS: Alanine Aminotransferase 35 IU/L (<50); Albumin 4.2 g/dL (3.5-5.0); Alkaline Phosphatase 104 U/L (38-126); Aspartate Aminotransferase 115 IU/L (17-59); BUN Creatinine Ratio 4.3 (6-22); Bilirubin Total 0.9 mg/dL (0.2-1.3); Blood Urea Nitrogen < 2 mg/dL (9-20); Carbon Dioxide 26 mmol/L (22-32); Chloride 99 mmol/L (98-107); Creatine Kinase 64 U/L (55-170); Estimated Glomerular Filt Rate > 60 mL/min (>60); Globulin 4.1 g/dL (1.7-4.1); Glucose 103 mg/dL (80-110); HEMOLYSIS 39 (0-50); Lipase 107 U/L (23-300); Potassium 4.1 mmol/L (3.4-5.1); Sodium 134 mmol/L (137-145); Total Protein 8.3 g/dL (6.3-8.2)
[2022-02-24 12:17] LABS: COVID19 -Nasal RAPID Negative (Negative)
[2022-02-24 12:23] LABS: Troponin I < 0.012 ng/mL (0.01-0.034)
[2022-02-24 12:32] VITALS: BP 173/93; PULSE 69; RESP 18; O2SAT 95
[2022-02-24 12:53] LABS: Thyroid Stimulating Hormone 2.76 uIU/mL (0.47-4.68)
[2022-02-24 12:56] LABS: Add Manual Diff / Slide Review NO; Basophils Absolute Auto 0 /uL (0-100); Basophils Percent Auto 0.6 % (0-2); Eosinophils Absolute Auto 100 /uL (0-450); Eosinophils Percent Auto 1.1 % (2-4); Hematocrit 46.2 % (41-53); Hemoglobin 16.2 g/dL (13.5-17.5); Lymphocytes Absolute Auto 1100 /uL (1100-4500); Lymphocytes Percent Auto 23.7 % (25-40); Mean Corpuscular HGB Conc 35.1 % (30-36); Mean Corpuscular Hemoglobin 35.1 PG (26-34); Mean Corpuscular Volume 100.1 fL (80-100); Monocytes Absolute Auto 500 /uL (0-900); Monocytes Percent Auto 9.7 % (3-14); Neutrophils Absolute Auto 3000 /uL (1500-7000); Neutrophils Percent Auto 64.9 % (50-75); Platelet Count 173 X10^3/uL (150-400); Red Blood Cell Count 4.61 X10^6/uL (4.5-5.9); Red Cell Distribution Width 12.3 % (11.6-14.8); White Blood Cell Count 4.7 X10^3/uL (4.5-11.0)
[2022-02-24 12:56] LABS: Ethanol (ETOH) 217 mg/dL
--- NOTE | 2022-02-24 13:50 | CM.SWNOTE ---
ED child welfare worker met with patient in ED setting. Patient reported he had just completed a phone call with the medical social consultant from [facility]. Patient was not aware that his PCP had referred for HH or did not recall that this was going to occur. Patient informed by this medical social consultant that he had been referred for PT/RN/EBD TEACHER assistance. Patient was glad to hear this and indicated his primary concern was needing social work help to get services in place to help him with errands, housekeeping. child welfare worker asked if he would like a referral to [facility] to be evaluated for [facility] caregiving. Patient would appreciate this referral being sent. ED medical social consultant spoke with patient regarding his ETOH consumption. Patient reported he did not feel his alcohol use was impacting his health or ability to function independently. Patient reported he did not feel his alcohol was contributing to his recent falls. Patient reported he was not interested in information regarding cessation or harm reduction related to his alcohol use. Patient reported he resides alone with only his brother in [facility] [place] [place] [facility] [place] [place]. Patient reported his brother is not a support for him and did not want his brother contacted. Patient will require assistance with transportation home as patient indicated not having funds to get home independently, dial-a-ride not available to him same day, and no other friends or family whom he could call. child welfare worker signed taxi voucher to assist with transportation home. ED medical social consultant did talk with [facility] via telephone to main office. Confirmed that PT/RN/EBD TEACHER was referred as of 02/22. PT is likely to start this week, EBD TEACHER after holiday weekend, and RN not until 03/05 approximately. [facility] requested H&P from today's ED visit be faxed to them as well. [facility] referral faxed @[phone]. Clinicals faxed to [facility] @[phone]. [facility]
[2022-02-24 14:08] VITALS: BP 186/123; PULSE 88; O2SAT 94
== END 2022-02-24 14:11 | disposition home or self-care (01) ==
PROVIDERS: Emergency Provider Emergency Medicine; PCP Internal Medicine
DX: F10.129 Alcohol abuse with intoxication, unspecified (principal); Y90.7 Blood alcohol level of 200-239 mg/100 ml; R07.9 Chest pain, unspecified; R29.6 Repeated falls; Z20.822 Contact with and (suspected) exposure to COVID-19
CPT/HCPCS: 36415; 70450; 71045; 80053; 80305; 80320; 82550; 83690; 84443; 84484; 85025; 85610; 85730; 87635; 99284; C9803

== ENCOUNTER 2022-03-08 15:58 | Emergency (ER) | payer MEDICARE, MEDICAID, SELFPAY ==
[2020-02-23 11:45] VITALS: PULSE 67; RESP 20; O2SAT 100
[2021-03-10 08:00] VITALS: BMI 23.7
[2022-03-08] VITALS (8 sets, daily range): BP systolic 128–182; BP diastolic 93–105; PULSE 76–97; RESP 15–24; TEMP 36.9; O2SAT 94–97; BMI 22.9
[2022-03-08 16:15] LABS: Add Manual Diff / Slide Review NO; Basophils Absolute Auto 0 /uL (0-100); Basophils Percent Auto 0.5 % (0-2); Eosinophils Absolute Auto 0 /uL (0-450); Eosinophils Percent Auto 0.1 % (2-4); Hematocrit 40.3 % (41-53); Hemoglobin 14.3 g/dL (13.5-17.5); Lymphocytes Absolute Auto 600 /uL (1100-4500); Lymphocytes Percent Auto 9.5 % (25-40); Mean Corpuscular HGB Conc 35.4 % (30-36); Mean Corpuscular Hemoglobin 35.2 PG (26-34); Mean Corpuscular Volume 99.4 fL (80-100); Monocytes Absolute Auto 600 /uL (0-900); Monocytes Percent Auto 9.8 % (3-14); Neutrophils Absolute Auto 5100 /uL (1500-7000); Neutrophils Percent Auto 80.1 % (50-75); Platelet Count 117 X10^3/uL (150-400); Red Blood Cell Count 4.06 X10^6/uL (4.5-5.9); Red Cell Distribution Width 11.8 % (11.6-14.8); White Blood Cell Count 6.3 X10^3/uL (4.5-11.0)
--- NOTE | 2022-03-08 16:18 | DI.RAD.S_ITS ---
PROCEDURE: XR CHEST 1V INDICATIONS: short of breath TECHNIQUE: One view of the chest was acquired. COMPARISON: [facility], CR, XR CHEST 1V, 03/11/2021, 6:34. [facility], CT, CT CERVICAL SPINE WO CON, 03/09/2021, 14:04. [facility], CR, XR CHEST 1V, 02/24/2022, 11:23. FINDINGS: Surgical changes and devices: Right subclavian stent is again visualized. Lungs and pleura: Minimal streaky bibasilar opacities likely representing atelectasis. No focal consolidation. Persistent minimal blunting of the right costophrenic angle likely representing pleural thickening or scarring. No pneumothorax or pleural effusion. Mediastinum: Mediastinal contours appear stable. Heart size is normal. Bones and chest wall: No suspicious bony lesions. Overlying soft tissues appear unremarkable. IMPRESSION: Minimal streaky bibasilar opacities favored to represent atelectasis. Otherwise, no acute cardiopulmonary abnormalities identified or focal airspace disease. Dictated by: Brenton Sagastume M.D. on 03/08/2022 at 16:37 Approved by: Brenton Sagastume M.D. on 03/08/2022 at 16:40
--- NOTE | 2022-03-08 16:18 | ED_ITS ---
HPI - Abdominal Pain <DO Kathleen Medrano Last Filed: 03/09/22 07:17> General Chief Complaint: Abdominal Pain Stated Complaint: N/V abd pain Time Seen by Provider: 03/08/22 16:12 Source: patient and EMS Mode of arrival: EMS History of Present Illness HPI narrative: Patient is a 66-year-old male history of hypothyroid hypertension presenting today with nausea vomiting and some diarrhea. It has been ongoing for about 1 week. Illicit some increasing shortness of breath as well. No significant chest pain. He has not had any fever or chills. He does have a history of alcoholism as well. No significant abdominal pain. He has complained of some orthopnea and some exertional dyspnea as well. He does have a history of emphysema. Related Data Previous Rx's Medication Instructions Recorded losartan 25 mg tablet 25 mg PO DAILY #90 tabs 05/22/21 omeprazole 20 mg capsule,delayed 20 mg PO DAILY #30 caps 05/25/21 release carvedilol 3.125 mg tablet 3.125 mg PO BID #180 tabs 07/21/21 levothyroxine 75 mcg tablet 75 mcg PO QDAY #90 tabs 07/21/21 (Synthroid) Allergies Allergy/AdvReac Type Severity Reaction Status Date / Time ciprofloxacin [From CIPRO] Allergy Severe SWELLING Verified 02/24/22 10:39 IN HANDS, ARMS, LEGS AND FEET pantoprazole AdvReac Intermediate n/v, Verified 02/24/22 10:39 omeprazole okay Review of Systems <DO Kathleen Medrano Last Filed: 03/09/22 07:17> Review of Systems Narrative: GENERAL: Denies chills, fatigue, malaise, fever, sweats, travel HEENT: Denies sinus pain, ear pain, sore throat, difficulty swallowing, neck pain RESPIRATORY: See HPI CARDIOVASCULAR: Denies chest pain, palpitations, orthopnea, edema GASTROINTESTINAL: See HPI : Denies dysuria, frequency, incontinence, hematuria, urinary retention, flank pain. MUSCULOSKELETAL: Denies weakness, joint pain, or bony pain SKIN: No rash, no erythema, no pruritus NEUROLOGIC: Denies weakness, dizziness, headache, numbness, change in speech, confusion PSYCHIATRIC: No concerning psychosocial issues. 12 point review of systems is negative except for those stated above and HPI Patient History <DO Kathleen Medrano Last Filed: 03/09/22 07:17> Medical History Alcohol dependence Alcoholism Anoxic brain injury Cardiomyopathy Cataracts, bilateral (2007) Chronic cough (1999) COPD (chronic obstructive pulmonary disease) Dislocated elbow (2000) Dislocated shoulder (2001) Eczema (2017) Elevated liver function tests Essential hypertension Fractures (~1963) GERD (gastroesophageal reflux disease) Hypothyroidism Impaired vision Paroxysmal atrial fibrillation Pulmonary nodule (~07/2019) Surgical History History of cataract removal with insertion of prosthetic lens History of nasal surgery (1963) History of repair of hiatal hernia Hx of hernia repair (1995) Family History Father History of arteriosclerotic cardiovascular disease History of emphysema Mother Cancer Grandfather No problems noted. Grandmother Stroke Grandfather No problems noted. Grandmother No problems noted. Social History household members: none Smoking Status: Current every day smoker Tobacco: How many years used: 22 quit status: not considering quitting second hand exposure: No alcohol intake: current substance use type: does not use Smoking Status: Current every day smoker alcohol intake frequency: 3 or more drinks per day Alcohol type: beer and hard liquor Substance Use Type: does not use Exam <Mimi Brown DO - Last Filed: 03/09/22 07:17> Initial Vital Signs Initial Vital Signs: Vital Signs Temperature 98.5 F 03/08/22 15:58 Pulse Rate 97 H 03/08/22 15:58 Respiratory Rate 18 03/08/22 15:58 Blood Pressure 182/93 H 03/08/22 15:58 Pulse Oximetry 96 03/08/22 15:58 Oxygen Delivery Method 03/08/22 15:58 GENERAL: Alert pleasant well-appearing 56-year-old and in no acute distress. HEENT: Head atraumatic,EOMI, pupils reactive, face symmetric, moist mucous membranes CARDIOVASCULAR: Regular rate and rhythm without murmurs, rubs or gallops. RESPIRATORY: Breath sounds equal bilaterally, no wheezes rales or rhonchi. ABDOMEN: Soft, nontender. Normoactive bowel sounds all 4 quadrants. No guarding or rebound. EXTREMITIES: Normal range of motion, no clubbing or edema. Neurovascularly intact NEUROLOGICAL: Alert and oriented x4.Normal gait and speech. SKIN: Warm, dry, no laceration, no petechiae, no rashes or lesions. <Kenneth White DO - Last Filed: 03/08/22 21:15> Initial Vital Signs Initial Vital Signs: Vital Signs Temperature 98.5 F 03/08/22 15:58 Pulse Rate 97 H 03/08/22 15:58 Respiratory Rate 18 03/08/22 15:58 Blood Pressure 182/93 H 03/08/22 15:58 Pulse Oximetry 96 03/08/22 15:58 Oxygen Delivery Method 03/08/22 15:58 Course <Mimi Brown, DO - Last Filed: 03/09/22 07:17> Orders Ordered: Discontinued Medications Sodium Chloride (Normal Saline 0.9%) 1,000 mls @ 150 mls/hr IV CONT CAILIN Last Infusion: 03/08/22 20:34 Dose: 0 mls/hr Documented By: LUIS A Admin: 03/08/22 18:21 Dose: 150 mls/hr Documented By: KVNG Thiamine HCl 200 mg/ Sodium (Chloride) 102 mls @ 408 mls/hr IV NOW ONE Stop: 03/08/22 19:02 Last Infusion: 03/08/22 19:48 Dose: 0 mls/hr Documented By: Admin: 03/08/22 19:24 Dose: 408 mls/hr Documented By: LUIS A Ondansetron HCl (Ondansetron 4 Mg Odt Prepack) 1 bottle MISC SEEINSTR ONE Stop: 03/08/22 20:10 Last Admin: 03/08/22 20:25 Dose: 1 bottle Documented By: KVNG Phenobarbital (Phenobarbital 65 Mg/Ml Vial) 130 mg IV NOW ONE Stop: 03/08/22 18:34 Last Admin: 03/08/22 18:51 Dose: 130 mg Documented By: KVNG Vital Signs Vital signs: Vital Signs - 8 hr 03/08/22 15:58 03/08/22 16:02 03/08/22 16:30 Temperature 98.5 F Pulse Rate 97 H 93 H Respiratory Rate 18 Blood Pressure 182/93 H 158/101 H Pulse Oximetry 96 97 Oxygen Delivery Method Room Air 03/08/22 16:30 03/08/22 17:00 03/08/22 17:00 Temperature Pulse Rate 92 H 91 H Respiratory Rate 24 19 Blood Pressure 168/105 H Pulse Oximetry 97 97 Oxygen Delivery Method 03/08/22 17:30 03/08/22 17:30 03/08/22 18:00 Temperature Pulse Rate 81 Respiratory Rate 24 Blood Pressure 152/95 H 128/99 H Pulse Oximetry 96 Oxygen Delivery Method 03/08/22 18:00 03/08/22 18:30 03/08/22 18:30 Temperature Pulse Rate 86 90 Respiratory Rate 24 15 Blood Pressure 174/103 H Pulse Oximetry 97 Oxygen Delivery Method 03/08/22 19:00 03/08/22 19:00 Temperature Pulse Rate 76 Respiratory Rate 22 Blood Pressure 162/93 H Pulse Oximetry 94 Oxygen Delivery Method <Kenneth White DO - Last Filed: 03/08/22 21:15> Orders Ordered: Discontinued Medications Sodium Chloride (Normal Saline 0.9%) 1,000 mls @ 150 mls/hr IV CONT CAILIN Last Infusion: 03/08/22 20:34 Dose: 0 mls/hr Documented By: LUIS A Admin: 03/08/22 18:21 Dose: 150 mls/hr Documented By: KVNG Thiamine HCl 200 mg/ Sodium (Chloride) 102 mls @ 408 mls/hr IV NOW ONE Stop: 03/08/22 19:02 Last Infusion: 03/08/22 19:48 Dose: 0 mls/hr Documented By: Admin: 03/08/22 19:24 Dose: 408 mls/hr Documented By: LUIS A Ondansetron HCl (Ondansetron 4 Mg Odt Prepack) 1 bottle MISC SEEINSTR ONE Stop: 03/08/22 20:10 Last Admin: 03/08/22 20:25 Dose: 1 bottle Documented By: KVNG Phenobarbital (Phenobarbital 65 Mg/Ml Vial) 130 mg IV NOW ONE Stop: 03/08/22 18:34 Last Admin: 03/08/22 18:51 Dose: 130 mg Documented By: KVNG Vital Signs Vital signs: Vital Signs - 8 hr 03/08/22 15:58 03/08/22 16:02 03/08/22 16:30 Temperature 98.5 F Pulse Rate 97 H 93 H Respiratory Rate 18 Blood Pressure 182/93 H 158/101 H Pulse Oximetry 96 97 Oxygen Delivery Method Room Air 03/08/22 16:30 03/08/22 17:00 03/08/22 17:00 Temperature Pulse Rate 92 H 91 H Respiratory Rate 24 19 Blood Pressure 168/105 H Pulse Oximetry 97 97 Oxygen Delivery Method 03/08/22 17:30 03/08/22 17:30 03/08/22 18:00 Temperature Pulse Rate 81 Respiratory Rate 24 Blood Pressure 152/95 H 128/99 H Pulse Oximetry 96 Oxygen Delivery Method 03/08/22 18:00 03/08/22 18:30 03/08/22 18:30 Temperature Pulse Rate 86 90 Respiratory Rate 24 15 Blood Pressure 174/103 H Pulse Oximetry 97 Oxygen Delivery Method 03/08/22 19:00 03/08/22 19:00 Temperature Pulse Rate 76 Respiratory Rate 22 Blood Pressure 162/93 H Pulse Oximetry 94 Oxygen Delivery Method MDM - Abdominal Pain <Mimi Brown, DO - Last Filed: 03/09/22 07:17> Lab Data Result diagrams: 03/08/22 16:05 03/08/22 16:05 Labs: Lab Results 03/08/22 03/08/22 03/08/22 Range/Units 16:05 16:05 16:05 WBC 6.3 (4.5-11.0) X10^3/uL RBC 4.06 L (4.5-5.9) X10^6/uL Hgb 14.3 (13.5-17.5) g/dL Hct 40.3 L (41-53) % MCV 99.4 (80-100) fL MCH 35.2 H (26-34) PG MCHC 35.4 (30-36) % RDW 11.8 (11.6-14.8) % Plt Count 117 L (150-400) X10^3/uL Neut % (Auto) 80.1 H (50-75) % Lymph % (Auto) 9.5 L (25-40) % Calloway % (Auto) 9.8 (3-14) % Eos % (Auto) 0.1 L (2-4) % Baso % (Auto) 0.5 (0-2) % Neut # (Auto) 5100 (0071-3320) /uL Lymph # (Auto) 600 L (3350-0930) /uL Calloway # (Auto) 600 (0-900) /uL Eos # (Auto) 0 (0-450) /uL Baso # (Auto) 0 (0-100) /uL Sodium 122 L (137-145) mmol/L Potassium 4.1 (3.4-5.1) mmol/L Chloride 88 L (98-107) mmol/L Carbon Dioxide 19 L (22-32) mmol/L BUN 4 L (9-20) mg/dL Creatinine 0.49 L (0.66-1.25) mg/dL Estimated GFR > 60 (>60) mL/min BUN/Creatinine Ratio 8.2 (6-22) Glucose 95 (80-110) mg/dL Calcium 8.4 (8.4-10.2) mg/dL Total Bilirubin 3.6 H (0.2-1.3) mg/dL AST 97 H (17-59) IU/L ALT 40 (<50) IU/L Alkaline Phosphatase 97 (38-126) U/L Total Creatine Kinase 119 (55-170) U/L CK-MB (CK-2) 2.10 (<2.37) ng/mL CK-MB (CK-2) Rel Index 1.8 (1.5-5.0) % Troponin I < 0.012 (0.01-0.034) ng/mL NT-Pro-B Natriuret Pep 623 H (<125) pg/mL Total Protein 7.3 (6.3-8.2) g/dL Albumin 4.0 (3.5-5.0) g/dL Globulin 3.3 (1.7-4.1) g/dL Albumin/Globulin Ratio 1.2 (1.0-2.8) Lipase 98 (23-300) U/L Urine Color Urine Appearance Urine pH (4.5-8.0) Ur Specific Baggs (1.000-1.035) Urine Protein (Negative) Urine Glucose (UA) (Negative) g/dL Urine Ketones (NEGATIVE) Urine Occult Blood (Negative) Urine Nitrate (Negative) Urine Bilirubin (NEGATIVE) Urine Urobilinogen (0.2) E.U./dL Ur Leukocyte Esterase (NEGATIVE) Urine RBC (0-5/HPF) Urine WBC (0-5/HPF) Ur Squamous Epith Cells (0-5/HPF) Urine Bacteria (None) Ur Culture Indicated? Ethyl Alcohol ( - 10) mg/dL SARS-CoV-2 (PCR) (Negative) 03/08/22 03/08/22 03/08/22 Range/Units 16:18 16:44 18:04 WBC (4.5-11.0) X10^3/uL RBC (4.5-5.9) X10^6/uL Hgb (13.5-17.5) g/dL Hct (41-53) % MCV (80-100) fL MCH (26-34) PG MCHC (30-36) % RDW (11.6-14.8) % Plt Count (150-400) X10^3/uL Neut % (Auto) (50-75) % Lymph % (Auto) (25-40) % Calloway % (Auto) (3-14) % Eos % (Auto) (2-4) % Baso % (Auto) (0-2) % Neut # (Auto) (6862-5956) /uL Lymph # (Auto) (9095-9640) /uL Calloway # (Auto) (0-900) /uL Eos # (Auto) (0-450) /uL Baso # (Auto) (0-100) /uL Sodium (137-145) mmol/L Potassium (3.4-5.1) mmol/L Chloride (98-107) mmol/L Carbon Dioxide (22-32) mmol/L BUN (9-20) mg/dL Creatinine (0.66-1.25) mg/dL Estimated GFR (>60) mL/min BUN/Creatinine Ratio (6-22) Glucose (80-110) mg/dL Calcium (8.4-10.2) mg/dL Total Bilirubin (0.2-1.3) mg/dL AST (17-59) IU/L ALT (<50) IU/L Alkaline Phosphatase (38-126) U/L Total Creatine Kinase (55-170) U/L CK-MB (CK-2) (<2.37) ng/mL CK-MB (CK-2) Rel Index (1.5-5.0) % Troponin I (0.01-0.034) ng/mL NT-Pro-B Natriuret Pep (<125) pg/mL Total Protein (6.3-8.2) g/dL Albumin (3.5-5.0) g/dL Globulin (1.7-4.1) g/dL Albumin/Globulin Ratio (1.0-2.8) Lipase (23-300) U/L Urine Color Yellow Urine Appearance Clear Urine pH 7.0 (4.5-8.0) Ur Specific Baggs <=1.005 (1.000-1.035) Urine Protein Negative (Negative) Urine Glucose (UA) Negative (Negative) g/dL Urine Ketones Trace H (NEGATIVE) Urine Occult Blood Negative (Negative) Urine Nitrate Negative (Negative) Urine Bilirubin Negative (NEGATIVE) Urine Urobilinogen 2.0 H (0.2) E.U./dL Ur Leukocyte Esterase Negative (NEGATIVE) Urine RBC 0-1/hpf (0-5/HPF) Urine WBC None seen (0-5/HPF) Ur Squamous Epith Cells 0-1 /hpf (0-5/HPF) Urine Bacteria None seen (None) Ur Culture Indicated? Cult not indicated Ethyl Alcohol < 10 ( - 10) mg/dL SARS-CoV-2 (PCR) Negative (Negative) MDM Narrative Medical decision making narrative: The patient is an alcoholic noted to be mildly hyponatremic make with sodium of 122. He is ambulatory with a walker. He overall appears well. No nausea vomiting here in the ED. patient is given some IV fluids and signed out to Dr. White for further management Dr white: Received turned over. Reviewed patient's history and physical exam. Patient has received thiamine. Has tolerated oral intake. Is alert oriented x3. Was able to walk with a walker which is baseline for him. Patient would like to be discharged home. He states he feels safe at home. He is hyponatremic however I feel this is most likely related to his alcohol use and nutritional status. Has no signs of trauma. Social work evaluated patient and will follow-up with him as far as home health and caregivers. Patient was given return precautions. He expressed understanding and agreement. <Kenneth White, DO - Last Filed: 03/08/22 21:15> Lab Data Labs: Lab Results 03/08/22 03/08/22 03/08/22 Range/Units 16:05 16:05 16:05 WBC 6.3 (4.5-11.0) X10^3/uL RBC 4.06 L (4.5-5.9) X10^6/uL Hgb 14.3 (13.5-17.5) g/dL Hct 40.3 L (41-53) % MCV 99.4 (80-100) fL MCH 35.2 H (26-34) PG MCHC 35.4 (30-36) % RDW 11.8 (11.6-14.8) % Plt Count 117 L (150-400) X10^3/uL Neut % (Auto) 80.1 H (50-75) % Lymph % (Auto) 9.5 L (25-40) % Calloway % (Auto) 9.8 (3-14) % Eos % (Auto) 0.1 L (2-4) % Baso % (Auto) 0.5 (0-2) % Neut # (Auto) 5100 (7892-4503) /uL Lymph # (Auto) 600 L (5686-8606) /uL Calloway # (Auto) 600 (0-900) /uL Eos # (Auto) 0 (0-450) /uL Baso # (Auto) 0 (0-100) /uL Sodium 122 L (137-145) mmol/L Potassium 4.1 (3.4-5.1) mmol/L Chloride 88 L (98-107) mmol/L Carbon Dioxide 19 L (22-32) mmol/L BUN 4 L (9-20) mg/dL Creatinine 0.49 L (0.66-1.25) mg/dL Estimated GFR > 60 (>60) mL/min BUN/Creatinine Ratio 8.2 (6-22) Glucose 95 (80-110) mg/dL Calcium 8.4 (8.4-10.2) mg/dL Total Bilirubin 3.6 H (0.2-1.3) mg/dL AST 97 H (17-59) IU/L ALT 40 (<50) IU/L Alkaline Phosphatase 97 (38-126) U/L Total Creatine Kinase 119 (55-170) U/L CK-MB (CK-2) 2.10 (<2.37) ng/mL CK-MB (CK-2) Rel Index 1.8 (1.5-5.0) % Troponin I < 0.012 (0.01-0.034) ng/mL NT-Pro-B Natriuret Pep 623 H (<125) pg/mL Total Protein 7.3 (6.3-8.2) g/dL Albumin 4.0 (3.5-5.0) g/dL Globulin 3.3 (1.7-4.1) g/dL Albumin/Globulin Ratio 1.2 (1.0-2.8) Lipase 98 (23-300) U/L Urine Color Urine Appearance Urine pH (4.5-8.0) Ur Specific Baggs (1.000-1.035) Urine Protein (Negative) Urine Glucose (UA) (Negative) g/dL Urine Ketones (NEGATIVE) Urine Occult Blood (Negative) Urine Nitrate (Negative) Urine Bilirubin (NEGATIVE) Urine Urobilinogen (0.2) E.U./dL Ur Leukocyte Esterase (NEGATIVE) Urine RBC (0-5/HPF) Urine WBC (0-5/HPF) Ur Squamous Epith Cells (0-5/HPF) Urine Bacteria (None) Ur Culture Indicated? Ethyl Alcohol ( - 10) mg/dL SARS-CoV-2 (PCR) (Negative) 03/08/22 03/08/22 03/08/22 Range/Units 16:18 16:44 18:04 WBC (4.5-11.0) X10^3/uL RBC (4.5-5.9) X10^6/uL Hgb (13.5-17.5) g/dL Hct (41-53) % MCV (80-100) fL MCH (26-34) PG MCHC (30-36) % RDW (11.6-14.8) % Plt Count (150-400) X10^3/uL Neut % (Auto) (50-75) % Lymph % (Auto) (25-40) % Calloway % (Auto) (3-14) % Eos % (Auto) (2-4) % Baso % (Auto) (0-2) % Neut # (Auto) (5766-4080) /uL Lymph # (Auto) (9711-9112) /uL Calloway # (Auto) (0-900) /uL Eos # (Auto) (0-450) /uL Baso # (Auto) (0-100) /uL Sodium (137-145) mmol/L Potassium (3.4-5.1) mmol/L Chloride (98-107) mmol/L Carbon Dioxide (22-32) mmol/L BUN (9-20) mg/dL Creatinine (0.66-1.25) mg/dL Estimated GFR (>60) mL/min BUN/Creatinine Ratio (6-22) Glucose (80-110) mg/dL Calcium (8.4-10.2) mg/dL Total Bilirubin (0.2-1.3) mg/dL AST (17-59) IU/L ALT (<50) IU/L Alkaline Phosphatase (38-126) U/L Total Creatine Kinase (55-170) U/L CK-MB (CK-2) (<2.37) ng/mL CK-MB (CK-2) Rel Index (1.5-5.0) % Troponin I (0.01-0.034) ng/mL NT-Pro-B Natriuret Pep (<125) pg/mL Total Protein (6.3-8.2) g/dL Albumin (3.5-5.0) g/dL Globulin (1.7-4.1) g/dL Albumin/Globulin Ratio (1.0-2.8) Lipase (23-300) U/L Urine Color Yellow Urine Appearance Clear Urine pH 7.0 (4.5-8.0) Ur Specific Baggs <=1.005 (1.000-1.035) Urine Protein Negative (Negative) Urine Glucose (UA) Negative (Negative) g/dL Urine Ketones Trace H (NEGATIVE) Urine Occult Blood Negative (Negative) Urine Nitrate Negative (Negative) Urine Bilirubin Negative (NEGATIVE) Urine Urobilinogen 2.0 H (0.2) E.U./dL Ur Leukocyte Esterase Negative (NEGATIVE) Urine RBC 0-1/hpf (0-5/HPF) Urine WBC None seen (0-5/HPF) Ur Squamous Epith Cells 0-1 /hpf (0-5/HPF) Urine Bacteria None seen (None) Ur Culture Indicated? Cult not indicated Ethyl Alcohol < 10 ( - 10) mg/dL SARS-CoV-2 (PCR) Negative (Negative) MDM Narrative Medical decision making narrative: Dr white: Received turned over. Reviewed patient's history and physical exam. Patient has received thiamine. Has tolerated oral intake. Is alert oriented x3. Was able to walk with a walker which is baseline for him. Patient would like to be discharged home. He states he feels safe at home. He is hyponatremic however I feel this is most likely related to his alcohol use and nutritional status. Has no signs of trauma. Social work evaluated patient and will follow-up with him as far as home health and caregivers. Patient was given return precautions. He expressed understanding and agreement. Discharge Plan Departure Patient Disposition: Home Clinical Impression: Nausea and vomiting, Hyponatremia Instructions: Nausea and Vomiting-Adult Activity Restrictions/Additional Instructions: I do recommend that you continue to take all of your medications as directed. It is important that you eat a well-balanced diet. Contact your primary doctor for a follow-up. Return to the emergency department for any new or worsening symptoms. Prescriptions: No Action losartan 25 mg tablet 25 mg PO DAILY Qty: 90 3RF omeprazole 20 mg capsule,delayed release(DR/EC) 20 mg PO DAILY Qty: 30 6RF levothyroxine [Synthroid] 75 mcg tablet 75 mcg PO QDAY Qty: 90 3RF carvedilol 3.125 mg tablet 3.125 mg PO BID Qty: 180 3RF Rx Instructions: must administer with a meal/food Referrals: Jose Wyman MD [Primary Care Provider] - Visit Report Forms: Patient Portal/API
[2022-03-08 16:34] LABS: Alanine Aminotransferase 40 IU/L (<50); Albumin Globulin Ratio 1.2 (1.0-2.8); Alkaline Phosphatase 97 U/L (38-126); Aspartate Aminotransferase 97 IU/L (17-59); BUN Creatinine Ratio 8.2 (6-22); Bilirubin Total 3.6 mg/dL (0.2-1.3); Blood Urea Nitrogen 4 mg/dL (9-20); Calcium 8.4 mg/dL (8.4-10.2); Carbon Dioxide 19 mmol/L (22-32); Chloride 88 mmol/L (98-107); Estimated Glomerular Filt Rate > 60 mL/min (>60); Globulin 3.3 g/dL (1.7-4.1); Glucose 95 mg/dL (80-110); HEMOLYSIS < 15 (0-50); Lipase 98 U/L (23-300); Potassium 4.1 mmol/L (3.4-5.1); Sodium 122 mmol/L (137-145); Total Protein 7.3 g/dL (6.3-8.2)
[2022-03-08 16:35] LABS: Creatine Kinase 119 U/L (55-170)
[2022-03-08 16:47] LABS: NT-proBNP (BNP-Adult 18+) 623 pg/mL (<125); Troponin I < 0.012 ng/mL (0.01-0.034)
[2022-03-08 17:08] LABS: Ethanol (ETOH) < 10 mg/dL
[2022-03-08 17:16] LABS: COVID19 -Nasal RAPID Negative (Negative)
[2022-03-08 17:43] LABS: CKMB % Relative Index 1.8 % (1.5-5.0)
[2022-03-08] MEDS: SODIUM CHLORIDE 0.9% 1,000 ML 150 ML IV (18:21)
[2022-03-08 18:41] LABS: Appearance Urine UA CLEAR; Bilirubin Urine UA NEGATIVE (NEGATIVE); Color Urine UA YELLOW; Glucose Urine UA NEGATIVE (Negative); Ketones Urine UA TRACE (NEGATIVE); Leukocyte Esterase Urine UA NEGATIVE (NEGATIVE); Nitrite Urine UA NEGATIVE (Negative); Occult Blood Urine UA NEGATIVE (Negative); Protein Urine UA NEGATIVE (Negative); Specific Gravity Urine UA <=1.005 (1.000-1.035)
[2022-03-08] MEDS: PHENobarbital 65 MG/ML VIAL 130 MG IV (18:51)
[2022-03-08 19:03] LABS: Bacteria Urine None Seen; Culture Indicated Urine Cult Not Indicated; RBC Urine 0-1/HPF (0-5/HPF); Squamous Epithelial Cell Urine 0-1 /HPF (0-5/HPF); WBC Urine None Seen (0-5/HPF)
[2022-03-08] MEDS: THIAMINE 200 MG in SODIUM CHLORIDE 0.9% 100 ML 408 MG IV (19:24)
--- NOTE | 2022-03-08 19:28 | CM.SWNOTE ---
Addendum entered by Sophie Martínez 03/09/22 16:54: PRINCIPAL LAW CLERK f/u note PRINCIPAL LAW CLERK receives VM from Marce at [facility] who reports that patient has had MELCHOR/HCS assessment but patient needs to f/u with financial statements to prove that patient qualifies and is eligible for services. Patient's assigned case consultant is Hilda House (Ph. # [phone]) and assigned financial worker is Yessi (Ph. # [phone]) PRINCIPAL LAW CLERK calls Marjorie in order to relay this information [facility], it is reported by [facility] that PRINCIPAL LAW CLERK is not assigned yet but patient's clinical sr. manager marketing is [employer] (Ph. # [phone]). PRINCIPAL LAW CLERK calls [employer] and leaves regarding the above and requests return call. PRINCIPAL LAW CLERK to f/u with providing [facility] contact numbers to assigned Marjorie PRINCIPAL LAW CLERK when return call is received. Sophie Martínez, [facility] Original Note: PRINCIPAL LAW CLERK/DCP Note Patient is 66 y/o male who reports to ED due to concern for Abdominal pain. Patient has hx of hypothyroid hypertension. Patient has hx of ETOH use. Patient presents as A/Ox3. Patient endorses that he resides alone in an apartment and does not drive. Patient endorses he used to walk and now he utilizes dial a ride. PRINCIPAL LAW CLERK discusses Medicaid transportation for medical appts and provides contact information. Patient endorses he is engaged in HH services with Marjorie (per previous note: PT, RN and PRINCIPAL LAW CLERK). Patient provides permission for PRINCIPAL LAW CLERK to call [facility] to inquire about patient's HCS/MELCHOR case consultant status as patient has caregivers in mind to assist him further. Patient endorses he used to have a caregiver and is interested in having one again. PRINCIPAL LAW CLERK calls [facility] and leaves requesting return call. Patient endorses and acknowledges his ETOH use and states that he drinks 9 beers a day and 1/5 of crown royal every 4 days. Patient denies concern with this impacting his daily functioning or activities. Patient's ETOH level is negative per toxicology screen today. Patient denies local supports but states that his best friend lives in [place] and his brother lives in [place]. PRINCIPAL LAW CLERK informs patient about upcoming appt with PCP Dr. Wyman on 03/22/22 and reminds patient to set up transportation for appt. PRINCIPAL LAW CLERK writes down appt information for patient. Plan: Patient to d/c to home when medically clear via [employer] taxi voucher. Sophie Martínez, TRANSMISSION DESIGN ENGINEER
[2022-03-08] MEDS: ONDANSETRON 4 MG ODT PREPACK 1 BOTTLE MISC (20:25)
== END 2022-03-08 20:36 | disposition home or self-care (01) ==
PROVIDERS: Emergency Medicine; Emergency Provider Emergency Medicine; PCP Internal Medicine
DX: E87.1 Hypo-osmolality and hyponatremia (principal); R11.2 Nausea with vomiting, unspecified; Z20.822 Contact with and (suspected) exposure to COVID-19
CPT/HCPCS: 71045; 80053; 80320; 81001; 82550; 82553; 83690; 83880; 84484; 85025; 87635; 93005; 93010; 96361; 96374; 99284; C9803; J2560

== ENCOUNTER 2022-03-15 12:13 | Inpatient (IN) | payer MEDICARE, MEDICAID, SELFPAY ==
[2020-02-23 11:45] VITALS: PULSE 67; RESP 20; O2SAT 100
[2021-03-10 08:00] VITALS: BMI 23.7
[2022-03-15] VITALS (15 sets, daily range): BP systolic 134–174; BP diastolic 77–101; PULSE 71–133; RESP 11–40; TEMP 36.2–36.9; O2SAT 86–100; BMI 22.2
[2022-03-15 12:46] LABS: Alanine Aminotransferase 52 IU/L (<50); Albumin Globulin Ratio 1.2 (1.0-2.8); Alkaline Phosphatase 99 U/L (38-126); Aspartate Aminotransferase 87 IU/L (17-59); BUN Creatinine Ratio 11.4 (6-22); Bilirubin Total 3.7 mg/dL (0.2-1.3); Blood Urea Nitrogen 10 mg/dL (9-20); Calcium 8.3 mg/dL (8.4-10.2); Carbon Dioxide 26 mmol/L (22-32); Chloride 83 mmol/L (98-107); Estimated Glomerular Filt Rate > 60 mL/min (>60); Globulin 3.3 g/dL (1.7-4.1); Glucose 92 mg/dL (80-110); Lipase 32 U/L (23-300); Potassium 4.1 mmol/L (3.4-5.1); Total Protein 7.3 g/dL (6.3-8.2)
[2022-03-15 12:50] LABS: HEMOLYSIS 19 (0-50)
[2022-03-15 12:53] LABS: Sodium 116 mmol/L (137-145)
[2022-03-15] MEDS: THIAMINE 200 MG in SODIUM CHLORIDE 0.9% 100 ML 408 MG IV (13:07)
--- NOTE | 2022-03-15 13:20 | ED_ITS ---
HPI - Weakness General Chief complaint: Weakness Stated complaint: n/v Weakness x1 week Time Seen by Provider: 03/15/22 12:53 Source: patient and EMS Mode of arrival: EMS History of Present Illness HPI Narrative: Patient is a 66-year-old male history of alcoholism presenting today with ongoing weakness. He has been to the ED multiple times lately with past couple weeks with frequent falls with weakness. I saw him last week, for something similar. Today he presents again with increasing weakness frequent falls. He states he has not had any alcoholic drink the last 5 days. He says that he has been drinking water he says he feels like constantly. His he denies any pain he sometimes feels nauseous he is unable to eat. He has no numbness tingling or weakness. No chest pain. Related Data Previous Rx's Medication Instructions Recorded losartan 25 mg tablet 25 mg PO DAILY #90 tabs 05/22/21 omeprazole 20 mg capsule,delayed 20 mg PO DAILY #30 caps 05/25/21 release carvedilol 3.125 mg tablet 3.125 mg PO BID #180 tabs 07/21/21 levothyroxine 75 mcg tablet 75 mcg PO QDAY #90 tabs 07/21/21 (Synthroid) Allergies Allergy/AdvReac Type Severity Reaction Status Date / Time ciprofloxacin [From CIPRO] Allergy Severe SWELLING Verified 02/24/22 10:39 IN HANDS, ARMS, LEGS AND FEET pantoprazole AdvReac Intermediate n/v, Verified 02/24/22 10:39 omeprazole okay Review of Systems Review of Systems Narrative: GENERAL: + frequent falls HEENT: Denies sinus pain, ear pain, sore throat, difficulty swallowing, neck pain RESPIRATORY: Denies dyspnea, cough, wheezing, hemoptysis, sputum. CARDIOVASCULAR: Denies chest pain, palpitations, orthopnea, edema GASTROINTESTINAL: Denies nausea, vomiting, abdominal pain, diarrhea, constipation, melena. : Denies dysuria, frequency, incontinence, hematuria, urinary retention, flank pain. MUSCULOSKELETAL: Denies weakness, joint pain, or bony pain SKIN: No rash, no erythema, no pruritus NEUROLOGIC: Generalized weakness PSYCHIATRIC: Alcohol abuse 12 point review of systems is negative except for those stated above and HPI Patient History Medical History Alcohol dependence Alcoholism Anoxic brain injury Cardiomyopathy Cataracts, bilateral (2007) Chronic cough (1999) COPD (chronic obstructive pulmonary disease) Dislocated elbow (2000) Dislocated shoulder (2001) Eczema (2017) Elevated liver function tests Essential hypertension Fractures (~1963) GERD (gastroesophageal reflux disease) Hypothyroidism Impaired vision Paroxysmal atrial fibrillation Pulmonary nodule (~07/2019) Surgical History History of cataract removal with insertion of prosthetic lens History of nasal surgery (1963) History of repair of hiatal hernia Hx of hernia repair (1995) Family History Father History of arteriosclerotic cardiovascular disease History of emphysema Mother Cancer Grandfather No problems noted. Grandmother Stroke Grandfather No problems noted. Grandmother No problems noted. Social History household members: none Smoking Status: Current every day smoker Tobacco: How many years used: 22 quit status: not considering quitting second hand exposure: No alcohol intake: current substance use type: does not use Smoking Status: Current every day smoker alcohol intake frequency: 3 or more drinks per day Alcohol type: beer and hard liquor Substance Use Type: does not use Exam Initial Vital Signs Initial Vital Signs: Vital Signs Temperature 98.1 F 03/15/22 12:15 Pulse Rate 71 03/15/22 12:15 Respiratory Rate 18 03/15/22 12:15 Blood Pressure 169/101 H 03/15/22 12:15 Pulse Oximetry 100 03/15/22 12:15 Oxygen Delivery Method 03/15/22 12:15 GENERAL: Alert slightly disheveled male and in no acute distress. HEENT: Head atraumatic,EOMI, pupils reactive, face symmetric, moist mucous membranes CARDIOVASCULAR: Regular rate and rhythm without murmurs, rubs or gallops. RESPIRATORY: Breath sounds equal bilaterally, no wheezes rales or rhonchi. ABDOMEN: Soft, nontender. Normoactive bowel sounds all 4 quadrants. No guarding or rebound. Negative right upper quadrant pain EXTREMITIES: Normal range of motion, no clubbing or edema. Neurovascularly intact NEUROLOGICAL: Alert oriented moving all extremities deburring technician strength equal bilaterally SKIN: Warm, dry, no laceration, no petechiae, no rashes or lesions. Course Orders Ordered: ED Orders 03/15/22 12:15 Complete Blood Count AUTO DIFF Stat Comprehensive Metabolic Panel Stat Lipase Stat 03/15/22 12:26 EKG-12 Lead Routine 03/15/22 12:33 Consult to INFORMATION OPERATOR - Senior Property Manager Stat 03/15/22 12:53 Sodium Urine Random Stat 03/15/22 13:25 COVID19 -Nasal RAPID/Pre-Proc Stat 03/15/22 13:30 ETOH [Ethanol (ETOH)] Stat Procalcitonin Stat TSH [Thyroid Stimulating Hormone] Stat 03/15/22 13:51 US abdomen limited Stat 03/15/22 14:15 CT head/brain wo con Stat 03/15/22 14:21 Blood Culture Stat Acetaminophen (Acetaminophen 325 Mg Tablet) 650 mg PO Q6HR PRN PRN Reason: Fever/Mild Pain (1-3) Carvedilol (Carvedilol 3.125 Mg Tablet) 3.125 mg PO BID CAILIN Enoxaparin Sodium (Enoxaparin 40 Mg/0.4 Ml Syringe) 40 mg SUBCUT DAILY CAILIN Folic Acid (Folic Acid 1 Mg Tablet) 1 mg PO DAILY CAILIN Dextrose/Sodium Chloride (Dextrose 5%-0.9% Ns) 1,000 mls @ 100 mls/hr IV CONT CAILIN Last Admin: 03/15/22 18:15 Dose: 100 mls/hr Documented By: CORIE Levothyroxine Sodium (Levothyroxine 75 Mcg Tablet) 75 mcg PO 0600 CAILIN Lorazepam (Lorazepam 1 Mg Tablet) 0 mg PO CIWAPRN PRN; Protocol PRN Reason: Alcohol Withdrawal Lorazepam (Lorazepam 2 Mg/Ml Inj) 0 mg IV CIWAPRN PRN; Protocol PRN Reason: Alcohol Withdrawal Losartan Potassium (Losartan 25 Mg Tablet) 25 mg PO DAILY CAILIN Multivitamins (Multivitamin 1 Tablet) 1 tab PO DAILY CAILIN Ondansetron HCl (Ondansetron 4 Mg/2 Ml Inj) 4 mg IV Q6HR PRN PRN Reason: Nausea And Vomiting Pantoprazole Sodium (Pantoprazole Dr 20 Mg Tablet) 20 mg PO 0600 CAILIN Thiamine HCl (Thiamine 100 Mg Tablet) 100 mg PO DAILY CAILIN Stop: 03/19/22 09:01 Discontinued Medications Thiamine HCl 200 mg/ Sodium (Chloride) 102 mls @ 408 mls/hr IV NOW ONE Stop: 03/15/22 12:54 Last Infusion: 03/15/22 13:38 Dose: 0 mls/hr Documented By: Admin: 03/15/22 13:07 Dose: 408 mls/hr Documented By: CTS Vital Signs Vital signs: Vital Signs - 8 hr 03/15/22 12:15 03/15/22 13:30 Temperature 98.1 F Pulse Rate 71 Respiratory Rate 18 Blood Pressure 169/101 H 174/93 H Pulse Oximetry 100 Oxygen Delivery Method Room Air MDM - Weakness Lab Data Result diagrams: 03/15/22 12:15 03/15/22 19:05 Labs: Lab Results 03/15/22 03/15/22 03/15/22 Range/Units 12:15 12:15 12:15 WBC 4.7 (4.5-11.0) X10^3/uL RBC 3.99 L (4.5-5.9) X10^6/uL Hgb 14.3 (13.5-17.5) g/dL Hct 38.6 L (41-53) % MCV 96.8 (80-100) fL MCH 35.9 H (26-34) PG MCHC 37.1 H (30-36) % RDW 11.9 (11.6-14.8) % Plt Count 156 (150-400) X10^3/uL Neut % (Auto) 71.7 (50-75) % Lymph % (Auto) 12.3 L (25-40) % [place] % (Auto) 15.2 H (3-14) % Eos % (Auto) 0.2 L (2-4) % Baso % (Auto) 0.6 (0-2) % Neut # (Auto) 3400 (4284-8541) /uL Lymph # (Auto) 600 L (1331-5251) /uL [place] # (Auto) 700 (0-900) /uL Eos # (Auto) 0 (0-450) /uL Baso # (Auto) 0 (0-100) /uL RBC Morphology See below Macrocytosis 1+ H Sodium 116 L* (137-145) mmol/L Potassium 4.1 (3.4-5.1) mmol/L Chloride 83 L (98-107) mmol/L Carbon Dioxide 26 (22-32) mmol/L BUN 10 (9-20) mg/dL Creatinine 0.88 (0.66-1.25) mg/dL Estimated GFR > 60 (>60) mL/min BUN/Creatinine Ratio 11.4 (6-22) Glucose 92 (80-110) mg/dL Calcium 8.3 L (8.4-10.2) mg/dL Total Bilirubin 3.7 H (0.2-1.3) mg/dL AST 87 H (17-59) IU/L ALT 52 H (<50) IU/L Alkaline Phosphatase 99 (38-126) U/L Total Protein 7.3 (6.3-8.2) g/dL Albumin 4.0 (3.5-5.0) g/dL Globulin 3.3 (1.7-4.1) g/dL Albumin/Globulin Ratio 1.2 (1.0-2.8) Lipase 32 D (23-300) U/L Procalcitonin (<0.5) ng/mL TSH 3.18 (0.47-4.68) uIU/mL Ur Random Sodium (30-90) mmol/L Ethyl Alcohol ( - 10) mg/dL SARS-CoV-2 (PCR) (Negative) 03/15/22 03/15/22 03/15/22 Range/Units 12:53 13:25 13:30 WBC (4.5-11.0) X10^3/uL RBC (4.5-5.9) X10^6/uL Hgb (13.5-17.5) g/dL Hct (41-53) % MCV (80-100) fL MCH (26-34) PG MCHC (30-36) % RDW (11.6-14.8) % Plt Count (150-400) X10^3/uL Neut % (Auto) (50-75) % Lymph % (Auto) (25-40) % [place] % (Auto) (3-14) % Eos % (Auto) (2-4) % Baso % (Auto) (0-2) % Neut # (Auto) (7007-0001) /uL Lymph # (Auto) (1143-2154) /uL [place] # (Auto) (0-900) /uL Eos # (Auto) (0-450) /uL Baso # (Auto) (0-100) /uL RBC Morphology Macrocytosis Sodium (137-145) mmol/L Potassium (3.4-5.1) mmol/L Chloride (98-107) mmol/L Carbon Dioxide (22-32) mmol/L BUN (9-20) mg/dL Creatinine (0.66-1.25) mg/dL Estimated GFR (>60) mL/min BUN/Creatinine Ratio (6-22) Glucose (80-110) mg/dL Calcium (8.4-10.2) mg/dL Total Bilirubin (0.2-1.3) mg/dL AST (17-59) IU/L ALT (<50) IU/L Alkaline Phosphatase (38-126) U/L Total Protein (6.3-8.2) g/dL Albumin (3.5-5.0) g/dL Globulin (1.7-4.1) g/dL Albumin/Globulin Ratio (1.0-2.8) Lipase (23-300) U/L Procalcitonin (<0.5) ng/mL TSH 2.47 (0.47-4.68) uIU/mL Ur Random Sodium 5 L (30-90) mmol/L Ethyl Alcohol ( - 10) mg/dL SARS-CoV-2 (PCR) Negative (Negative) 03/15/22 Range/Units 13:30 WBC (4.5-11.0) X10^3/uL RBC (4.5-5.9) X10^6/uL Hgb (13.5-17.5) g/dL Hct (41-53) % MCV (80-100) fL MCH (26-34) PG MCHC (30-36) % RDW (11.6-14.8) % Plt Count (150-400) X10^3/uL Neut % (Auto) (50-75) % Lymph % (Auto) (25-40) % [place] % (Auto) (3-14) % Eos % (Auto) (2-4) % Baso % (Auto) (0-2) % Neut # (Auto) (3661-3354) /uL Lymph # (Auto) (2058-1323) /uL [place] # (Auto) (0-900) /uL Eos # (Auto) (0-450) /uL Baso # (Auto) (0-100) /uL RBC Morphology Macrocytosis Sodium (137-145) mmol/L Potassium (3.4-5.1) mmol/L Chloride (98-107) mmol/L Carbon Dioxide (22-32) mmol/L BUN (9-20) mg/dL Creatinine (0.66-1.25) mg/dL Estimated GFR (>60) mL/min BUN/Creatinine Ratio (6-22) Glucose (80-110) mg/dL Calcium (8.4-10.2) mg/dL Total Bilirubin (0.2-1.3) mg/dL AST (17-59) IU/L ALT (<50) IU/L Alkaline Phosphatase (38-126) U/L Total Protein (6.3-8.2) g/dL Albumin (3.5-5.0) g/dL Globulin (1.7-4.1) g/dL Albumin/Globulin Ratio (1.0-2.8) Lipase (23-300) U/L Procalcitonin 0.14 (<0.5) ng/mL TSH (0.47-4.68) uIU/mL Ur Random Sodium (30-90) mmol/L Ethyl Alcohol < 10 ( - 10) mg/dL SARS-CoV-2 (PCR) (Negative) Urine Dip Bedside Urine Glucose Negative Bedside Urine Bilirubin - Negative Bedside Urine Ketone +/- 5 Urine Specific [place] 1.005 Bedside Urine Occult Blood - Negative Bedside Urine pH 6.0 Bedside Urine Protein - Negative Bedside Urine Urobilinogen +/- 1mg Bedside Urine Nitrite - Negative Bedside Urine Leukocytes - Negative Esterase Imaging Data CT scan - head: Radiologist Impression: Signed Patient: Shmuel Simpson I MR#: [id number] : 1955 Acct:[id number] Age/Sex: 66 / M Date of Service: 03/15/22 Loc: ICU 229-1 Accession Number: [id number] ?? Procedure: CT head/brain wo con Ordering Provider: Mimi Brown D.O. PROCEDURE:? CT HEAD/BRAIN WO CON ? INDICATIONS:? weakness ? TECHNIQUE:? Noncontrast 4.5 mm thick angled axial sections acquired from the foramen magnum to the vertex, with coronal and sagittal reformats.? For radiation dose reduction, the following was used:? automated exposure control, adjustment of mA and/or kV according to patient size.? ? COMPARISON:? [facility], CT, CT HEAD/BRAIN WO CON, 02/24/2022, 11:40.? [facility], CT, CT HEAD/BRAIN WO CON, 03/16/2021, 11:48. ? FINDINGS:? Image quality:? Excellent.? ? CSF spaces:? Basal cisterns are patent.? No extra-axial fluid collections.? The ventricles are symmetric in size and shape.? ? Brain:? No intracranial bleeds or masses.? There is moderate cerebral volume loss for age, with resultant ventricular and sulcal prominence.? There are moderate periventricular and deep white matter chronic small vessel ischemic changes.? There is intracranial internal carotid artery atherosclerosis.? ? Skull and face:? Calvarium and visualized facial bones appear intact, without suspicious lesions.? ? Sinuses:? Visualized mastoids are clear.? Scattered ethmoid sinus mucosal thickening and right maxillary sinus mucosal thickening.? Remainder of the imaged paranasal sinuses appear clear. ? IMPRESSION:? 1. CT head without acute intracranial abnormalities or acute calvarial fractures. ? 2. Age-related senescent changes and sequela of chronic small vessel ischemic disease. ? 3. Scattered ethmoid and right maxillary sinus disease.? Dictated by: Brenton Sagastume M.D. on 03/15/2022 at 14:23 ? ? US - abdomen: Radiologist Impression: Signed Patient: Shmuel Simpson I MR#: [id number] : 1955 Acct:[id number] Age/Sex: 66 / M Date of Service: 03/15/22 Loc: [facility] 229-1 Accession Number: [id number] ?? Procedure: US abdomen limited Ordering Provider: Mimi Brown D.O. PROCEDURE:? US ABDOMEN LIMITED ? INDICATIONS:? ELEVATED LFTS ? TECHNIQUE:? Real-time scanning was performed of the abdominal and retroperitoneal organs, with image documentation.? ? COMPARISON:? [facility], US ABDOMEN LIMITED, 02/17/2020, 18:08. ? FINDINGS:? ? Liver:? The liver demonstrates diffusely coarsened and increased echotexture without focal abnormalities consistent with chronic hepatocellular disease/hepatic steatosis. ? Gallbladder:? Gallbladder is filled with numerous gallstones.? No wall thickening identified.? Negative sonographic Orsas sign.? No pericholecystic fluid.? ? Biliary ducts:? Intrahepatic bile ducts are non-dilated.? Extrahepatic bile duct caliber measures 3 mm.? Normal is 6-7 mm or less in diameter, or 10 mm or less post-cholecystectomy.? ? Pancreas:? Pancreas is not visualized secondary to overlying bowel gas. ? Miscellaneous:? No free abdominal fluid.? ? IMPRESSION:? ? 1. Cholelithiasis without sonographic evidence for acute cholecystitis. ? 2. Findings compatible with hepatic steatosis or other chronic hepatocellular disease.? No focal intrahepatic abnormality seen.? Findings may explain patient's elevated liver function tests.? Recommend continued clinical surveillance/follow-up with repeat imaging as indicated. ? Dictated by: Brenton Sagastume M.D. on 03/15/2022 at 14:1 ECG Data Interpretation: Sinus rhythm rate 77 ID interval 164 QRS [address] changes or T-wave inversions MDM Narrative Medical decision making narrative: Is here frequently for weakness falls and alcohol abuse. Today sodium is found P 116 last week it was 122 some mildly on the lower end. He states that he has been drinking water. Hyponatremia is likely from this. Head CT is negative in he has no neurologic deficits. At this time water restrict. He is given a dose of IV dex IM in but he does not show any sign of alcohol withdrawal or wer[place] encephalopathy. Patient is noted to have elevated bilirubin is slightly elevated liver enzymes although he is is not tenderness right upper quadrant ultrasound is done which does show cholelithiasis but no sign of acute cholecystitis. Elevation in blood work is probably due to alcohol abuse rather than choledocholithiasis. Dr. Wyman obtain patient's symptoms test results and agrees with admission. Discharge Plan Departure Patient Disposition: Admitted As Inpatient Clinical Impression: Hyponatremia Admit Date/Time: 03/15/22 13:59 Admit Provider: Jose Wyman
[2022-03-15 13:26] LABS: Basophils Absolute Auto 0 /uL (0-100); Basophils Percent Auto 0.6 % (0-2); Eosinophils Absolute Auto 0 /uL (0-450); Eosinophils Percent Auto 0.2 % (2-4); Hematocrit 38.6 % (41-53); Hemoglobin 14.3 g/dL (13.5-17.5); Lymphocytes Absolute Auto 600 /uL (1100-4500); Lymphocytes Percent Auto 12.3 % (25-40); Mean Corpuscular HGB Conc 37.1 % (30-36); Mean Corpuscular Hemoglobin 35.9 PG (26-34); Mean Corpuscular Volume 96.8 fL (80-100); Monocytes Absolute Auto 700 /uL (0-900); Monocytes Percent Auto 15.2 % (3-14); Neutrophils Absolute Auto 3400 /uL (1500-7000); Neutrophils Percent Auto 71.7 % (50-75); Platelet Count 156 X10^3/uL (150-400); Red Blood Cell Count 3.99 X10^6/uL (4.5-5.9); Red Cell Distribution Width 11.9 % (11.6-14.8); White Blood Cell Count 4.7 X10^3/uL (4.5-11.0)
[2022-03-15 13:27] LABS: Add Manual Diff / Slide Review SLIDE REVIEW
[2022-03-15 13:42] LABS: COVID19 -Nasal RAPID Negative (Negative)
--- NOTE | 2022-03-15 13:51 | DI.US.S_ITS ---
PROCEDURE: US ABDOMEN LIMITED INDICATIONS: ELEVATED LFTS TECHNIQUE: Real-time scanning was performed of the abdominal and retroperitoneal organs, with image documentation. COMPARISON: [facility], , US ABDOMEN LIMITED, 02/17/2020, 18:08. FINDINGS: Liver: The liver demonstrates diffusely coarsened and increased echotexture without focal abnormalities consistent with chronic hepatocellular disease/hepatic steatosis. Gallbladder: Gallbladder is filled with numerous gallstones. No wall thickening identified. Negative sonographic Rosas sign. No pericholecystic fluid. Biliary ducts: Intrahepatic bile ducts are non-dilated. Extrahepatic bile duct caliber measures 3 mm. Normal is 6-7 mm or less in diameter, or 10 mm or less post-cholecystectomy. Pancreas: Pancreas is not visualized secondary to overlying bowel gas. Miscellaneous: No free abdominal fluid. IMPRESSION: 1. Cholelithiasis without sonographic evidence for acute cholecystitis. 2. Findings compatible with hepatic steatosis or other chronic hepatocellular disease. No focal intrahepatic abnormality seen. Findings may explain patient's elevated liver function tests. Recommend continued clinical surveillance/follow-up with repeat imaging as indicated. Dictated by: Brenton Sagastume M.D. on 03/15/2022 at 14:12 Approved by: Brenton Sagastume M.D. on 03/15/2022 at 14:17
[2022-03-15 13:53] LABS: Macrocytosis 1+
[2022-03-15 13:58] LABS: Ethanol (ETOH) < 10 mg/dL
--- NOTE | 2022-03-15 14:05 | P.HP_ITS ---
History of Present Illness History of Present Illness Date Patient Seen: 03/15/22 Time Patient Seen: 14:05 Chief complaint: n/v Weakness x1 week Narrative: 66-year-old male admitted from the emergency department because of hyponatremia Patient with chronic long-term alcohol use disorder who has been having increased numbers of falls at home. Increased weakness etcetera. This is patient's third visit to the ER over the last 3 weeks or so. Patient reports having stopped the use of alcohol and indeed his last ethanol level with his last ER visit last week was 0. Patient reports drinking lots of water to compensate for the lack of alcohol. The reason he is not had any alcohol is because he ran out and has no one to bring him anymore. He reports his last drink was about 7 days ago. He has been seen by me in the outpatient clinic and set up with home health services but patient apparently is failing at home. Patient does not have any family or assistance close by Patient was transferred to the emergency department via EMS after having increa sed weakness and calling EMS. He was found to have a sodium of 116 down from 122 in seen in the ER last week. No other notable findings. Patient's bilirubin remains somewhat elevated however he is not having any abdominal symptoms Patient History Medical History Alcohol dependence Alcoholism Anoxic brain injury Cardiomyopathy Cataracts, bilateral (2007) Chronic cough (1999) COPD (chronic obstructive pulmonary disease) Dislocated elbow (2000) Dislocated shoulder (2001) Eczema (2017) Elevated liver function tests Essential hypertension Fractures (~1963) GERD (gastroesophageal reflux disease) Hypothyroidism Impaired vision Paroxysmal atrial fibrillation Pulmonary nodule (~07/2019) Surgical History History of cataract removal with insertion of prosthetic lens History of nasal surgery (1963) History of repair of hiatal hernia Hx of hernia repair (1995) Family & Social History Family History Father History of arteriosclerotic cardiovascular disease History of emphysema Mother Cancer Grandfather No problems noted. Grandmother Stroke Grandfather No problems noted. Grandmother No problems noted. Social History: household members none Safety & Behavioral: Feels Safe in Current Yes Environment Tobacco & Substance use: Tobacco type cigarettes Smoking Status Current every day smoker alcohol intake current alcohol intake frequency 3 or more drinks per day Substance Use Type does not use Meds Home Medications and Allergies Home Medications Medication Instructions Recorded Confirmed Type losartan 25 mg tablet 25 mg PO DAILY #90 tabs 05/22/21 02/19/22 Rx omeprazole 20 mg capsule,delayed 20 mg PO DAILY #30 caps 05/25/21 02/19/22 Rx release carvedilol 3.125 mg tablet 3.125 mg PO BID #180 tabs 07/21/21 02/19/22 Rx levothyroxine 75 mcg tablet 75 mcg PO QDAY #90 tabs 07/21/21 02/19/22 Rx (Synthroid) Allergies Allergy/AdvReac Type Severity Reaction Status Date / Time ciprofloxacin [From CIPRO] Allergy Severe SWELLING Verified 02/24/22 10:39 IN HANDS, ARMS, LEGS AND FEET pantoprazole AdvReac Intermediate n/v, Verified 02/24/22 10:39 omeprazole okay Review of Systems Review of Systems ROS: Yes All systems reviewed with the patient and are negative except as otherwise documented Exam Vital Signs (past 8 hours): - 03/15/22 12:15 Temperature 98.1 F Pulse Rate 71 Respiratory Rate 18 Blood Pressure 169/101 H Pulse Oximetry 100 Oxygen Delivery Method Room Air Oxygen Delivery Method Room Air Narrative Exam Narrative: Older than stated age appearing male who appears somewhat more frail than last time I saw him HEENT-normocephalic, EOMs intact Neck-no bruits Lungs-good breath sounds clear no wheezes no crackles Heart-regular rate and rhythm Abdomen-benign Neuro-alert oriented x3 no obvious cranial nerve defects no focal findings to limited exam as I did not get patient up out of bed Objective Labs Result Diagrams: 03/15/22 12:15 03/15/22 12:15 Labs: Laboratory Results - last 24 hr 03/15/22 03/15/22 03/15/22 12:15 12:15 13:25 WBC 4.7 RBC 3.99 L Hgb 14.3 Hct 38.6 L MCV 96.8 MCH 35.9 H MCHC 37.1 H RDW 11.9 Plt Count 156 Neut % (Auto) 71.7 Lymph % (Auto) 12.3 L Clare % (Auto) 15.2 H Eos % (Auto) 0.2 L Baso % (Auto) 0.6 Neut # (Auto) 3400 Lymph # (Auto) 600 L Clare # (Auto) 700 Eos # (Auto) 0 Baso # (Auto) 0 RBC Morphology See below Macrocytosis 1+ H Sodium 116 L* Potassium 4.1 Chloride 83 L Carbon Dioxide 26 BUN 10 Creatinine 0.88 Estimated GFR > 60 BUN/Creatinine Ratio 11.4 Glucose 92 Calcium 8.3 L Total Bilirubin 3.7 H AST 87 H ALT 52 H Alkaline Phosphatase 99 Total Protein 7.3 Albumin 4.0 Globulin 3.3 Albumin/Globulin Ratio 1.2 Lipase 32 D Ethyl Alcohol SARS-CoV-2 (PCR) Negative 03/15/22 13:30 WBC RBC Hgb Hct MCV MCH MCHC RDW Plt Count Neut % (Auto) Lymph % (Auto) Clare % (Auto) Eos % (Auto) Baso % (Auto) Neut # (Auto) Lymph # (Auto) Clare # (Auto) Eos # (Auto) Baso # (Auto) RBC Morphology Macrocytosis Sodium Potassium Chloride Carbon Dioxide BUN Creatinine Estimated GFR BUN/Creatinine Ratio Glucose Calcium Total Bilirubin AST ALT Alkaline Phosphatase Total Protein Albumin Globulin Albumin/Globulin Ratio Lipase Ethyl Alcohol < 10 SARS-CoV-2 (PCR) Assessment & Plan Assessment & Plan narrative: 1. Hyponatremia-likely secondary to patient's water ingestion as replacement for the alcohol. That does make sense to me. Patient not really in any other high- risk medications, or evidence of any other high risk conditions, chest x-ray both February 24 and March 08 unremarkable. Could consider repeat if develops any sort of pulmonary symptoms at all as some sort of pulmonary source for his hyponatremia such as infection or malignancy is still on the list At this point replacing his sodium with normal saline and monitoring carefully so that we do not overcorrect too quickly makes sense. Plan to start him on normal saline at 100 cc an hour with a recheck this evening. 2. Weakness-patient be seen by Physical therapy and evaluate especially once his sodium improves. I think he would best be served probably by placement in alternate living facility as I do not think he is capable of living independently on his own at this point. We have given him all the assistance we can provide short of placing him in an alternate facility and he still failing at home 3. Alcohol use disorder-patient is at risk for alcohol withdrawal unless of course he really has not had any alcohol at all for the last several days, as he reported. Plan to monitor for evidence of alcohol withdrawal and treat as appropriate per usual [facility] protocol 4. History of cardiomyopathy-continue patient's usual medications. No evidence of active symptoms referable to this 5. Hypertension-patient does not appear to been taking his usual medications. This would explain his hypertension emergency department. Continue his usual medications and monitor 6. Disposition-patient I think clearly needs to go to group home or an adult family home or assisted living rather than returning to his home environment which he is failed including the assistance of home health services. 7. Code status-patient has expressed the desire for full resuscitation in the event of a sudden cardiac or respiratory arrest. 8. VTE prophylaxis-Lovenox is appropriate and ordered Patient deserves inpatient hospitalization given his extremely low sodium is failure at home with multiple ER visits over the last several weeks as above. He will clearly be in the hospital greater than 48 hours to span 2 separate midnights COVID-19 COVID-19 status: Negative Result date/Date tested (Pos, Neg/Pending): 03/15/22
[2022-03-15 14:15] LABS: Procalcitonin 0.14 ng/mL (<0.5)
--- NOTE | 2022-03-15 14:15 | DI.CT.S_ITS ---
PROCEDURE: CT HEAD/BRAIN WO CON INDICATIONS: weakness TECHNIQUE: Noncontrast 4.5 mm thick angled axial sections acquired from the foramen magnum to the vertex, with coronal and sagittal reformats. For radiation dose reduction, the following was used: automated exposure control, adjustment of mA and/or kV according to patient size. COMPARISON: [facility], CT, CT HEAD/BRAIN WO CON, 02/24/2022, 11:40. [facility], CT, CT HEAD/BRAIN WO CON, 03/16/2021, 11:48. FINDINGS: Image quality: Excellent. CSF spaces: Basal cisterns are patent. No extra-axial fluid collections. The ventricles are symmetric in size and shape. Brain: No intracranial bleeds or masses. There is moderate cerebral volume loss for age, with resultant ventricular and sulcal prominence. There are moderate periventricular and deep white matter chronic small vessel ischemic changes. There is intracranial internal carotid artery atherosclerosis. Skull and face: Calvarium and visualized facial bones appear intact, without suspicious lesions. Sinuses: Visualized mastoids are clear. Scattered ethmoid sinus mucosal thickening and right maxillary sinus mucosal thickening. Remainder of the imaged paranasal sinuses appear clear. IMPRESSION: 1. CT head without acute intracranial abnormalities or acute calvarial fractures. 2. Age-related senescent changes and sequela of chronic small vessel ischemic disease. 3. Scattered ethmoid and right maxillary sinus disease. Dictated by: Brenton Sagastume M.D. on 03/15/2022 at 14:23 Approved by: Brenton Sagastume M.D. on 03/15/2022 at 14:25
[2022-03-15 14:34] LABS: Thyroid Stimulating Hormone 2.47 uIU/mL (0.47-4.68)
[2022-03-15 14:51] LABS: Sodium Urine Random 5 mmol/L (30-90)
[2022-03-15 14:56] LABS: TSH w/ Reflex to FT4 3.18 uIU/mL (0.47-4.68)
--- NOTE | 2022-03-15 15:58 | CM.IDA ---
DCP Assessment Patient is 66 y/o male who presents to ED via EMS due to concern for nausea and vomiting. Patient endorses he has not eaten for 5 days. Patient presented to ED on 03/08/22 with similar concerns. Patient has been experiencing increased weakness and frequent falls. Patient's PCP is Dr. Jose Wyman, patient has upcoming PCP appt on 03/22/22. Patient has Medicaid, Medicare and [employer] insurance. Patient has hx of Alcoholism, hypertension, hyponatremia, GERD, Paroxysmal AFib, and hypothyroidism. Patient presents as A/Ox3. Patient endorses he is independence with toileting and showering. Patient endorses that he uses a FWW. Patient has current referral for [facility], patient endorses he received HH assistance to shower the other day (HH referral for PT, RN and BOW STAPLER). BOW STAPLER calls [facility] and leaves VM endorsing patient's ED encounter and admit to hospital and requests confirmation for current HH referral. Per Gregory Sorensen formerly [facility] [employer], patient is brand new to his case load as of today. BOW STAPLER informs Gregory of patient's need for [employer] application f/u and need for turning in financial earnings paperwork, Gregory endorses his current contact with [facility] to request extension for patient. Gregory endorses he can support patient with finishing his [employer] application. Patient endorses if he is in need of SNF rehab he will return to [facility] because he had been there in the past. Patient has been accepted to ICU per PCP Dr. Wyman and ED provider Dr. Brown due to concern patient's low sodium. Plan: Patient to be admitted to ICU, DCP to f/u with POC DAVID Mcmanus Discharge Planning/Care Management CM Discharge Assessment Start: 03/15/22 14:47 Freq: Status: Active Protocol: Document 03/15/22 14:48 LN (Rec: 03/15/22 15:58 LN [id number]) Discharge Planning Assessment Assigned Program Evaluator DAVID Barrios Advance Directives? No Advance Directives on File No History Provided By Patient,Medical Record Has Patient been admitted in last 30 No days? Prior Living Arrangements Apartment/Condo Household Members none Type of transporation used prior to Relies on Others admit Comment BOW STAPLER informed patient about medicaid transport at last ED encounter on 03/08/22 Independent with ADL's Yes Is patient alert and oriented? Yes Needs Assistance With Meal Prep,Home Chores / Shopping Caregiver for Another No Community Services used prior to Physical Therapy,Home Health admission: Nurse,Home Delivered Meals, Social Work Comment [facility] RN and BOW [facility]ER which was confirmed on . [facility] today as well. DME Already Rented / Owned FWW / Walker Comment Unknown at this time. Transportation Arrangement Unknown Review Status In Process Please Provide Date Initial DC 03/15/22 Assessment Was Performed
[2022-03-15] MEDS: DEXTROSE 5%-0.9% NS 1,000 ML 100 ML IV (18:15)
--- NOTE | 2022-03-15 18:33 | PC.NURSE ---
Admit from ER Up on stretcher, Pt is A/o x4 forgetful at times, [place]. Glassses at bedside. No RASCON. Poor Self care at home, reports daily drinking until 5 days ago, ran out of alcohols and no way to get it. Denies CIWA s/sx, slight tremor noted to hand
[2022-03-15 19:24] LABS: Sodium 122 mmol/L (137-145)
[2022-03-15 19:37] LABS: BUN Creatinine Ratio 13.4 (6-22); Blood Urea Nitrogen 11 mg/dL (9-20); Calcium 8.5 mg/dL (8.4-10.2); Carbon Dioxide 29 mmol/L (22-32); Chloride 86 mmol/L (98-107); Estimated Glomerular Filt Rate > 60 mL/min (>60); Glucose 113 mg/dL (80-110); HEMOLYSIS < 15 (0-50); Potassium 3.7 mmol/L (3.4-5.1); Sodium 122 mmol/L (137-145)
[2022-03-15] MEDS: carvediloL 3.125 MG TABLET PO (21:02)
[2022-03-15] MEDS: ACETAMINOPHEN 325 MG TABLET 650 MG PO (21:03)
--- NOTE | 2022-03-15 21:10 | PM.CN.EICU ---
History of Present Illness Consult details Chief complaint: n/v Weakness x1 week Requesting provider: Jose Wyman Patient Location: ICU Provider location (State): [place] Narrative: 66 y.o. male with EtOH dependence history who presented to ED w/ weakness x 1 week. He has been abstinent from EtOH for approximately 5 days and has substituted water for EtOH. Serum Na+ returned as 116 @ 12:15 and increased to 122 @ 1900. He has been receiving NS @ 100 mL/hr since the ER. Other PMHx: COPD EtOH cardiomyopathy HTN Hypothyroidism Paroxysmal AF Active tobacco use PFSH Medical History Alcohol dependence Alcoholism Anoxic brain injury Cardiomyopathy Cataracts, bilateral (2007) Chronic cough (1999) COPD (chronic obstructive pulmonary disease) Dislocated elbow (2000) Dislocated shoulder (2001) Eczema (2016) Elevated liver function tests Essential hypertension Fractures (~1963) GERD (gastroesophageal reflux disease) Hypothyroidism Impaired vision Paroxysmal atrial fibrillation Pulmonary nodule (~07/2019) Surgical History History of cataract removal with insertion of prosthetic lens History of nasal surgery (1963) History of repair of hiatal hernia Hx of hernia repair (1995) Family History Father History of arteriosclerotic cardiovascular disease History of emphysema Mother Cancer Grandfather No problems noted. Grandmother Stroke Grandfather No problems noted. Grandmother No problems noted. Social History household members: none Smoking Status: Current every day smoker Tobacco: How many years used: 22 quit status: not considering quitting second hand exposure: No alcohol intake: current substance use type: does not use Current Medications Current Medications Medications: Home Medications losartan 25 mg tablet 25 mg PO DAILY #90 tabs 05/22/21 [Rx Confirmed 03/15/22] omeprazole 20 mg capsule,delayed release 20 mg PO DAILY #30 caps 05/25/21 [Rx Confirmed 03/15/22] carvedilol 3.125 mg tablet 3.125 mg PO BID #180 tabs 07/21/21 [Rx Confirmed 03/15/22] levothyroxine 75 mcg tablet (Synthroid) 75 mcg PO QDAY #90 tabs 07/21/21 [Rx Confirmed 03/15/22] Visit Medications (administered) Generic Name Dose Route Start Last Admin Trade Name Benjamin PRN Reason Stop Dose Admin Acetaminophen 650 mg 03/15/22 16:30 03/15/22 21:03 Acetaminophen 325 Mg Tablet PO 650 mg Q6HR PRN Administration Fever/Mild Pain (1-3) Carvedilol 3.125 mg 03/15/22 21:00 03/15/22 21:02 Carvedilol 3.125 Mg Tablet PO 3.125 mg BID CAILIN Administration Dextrose/Sodium Chloride 1,000 mls @ 100 mls/hr 03/15/22 16:30 03/15/22 18:15 Dextrose 5%-0.9% Ns IV 100 mls/hr CONT CAILIN Administration Exam Vital Signs (past 8 hours): - 03/15/22 13:30 03/15/22 15:37 03/15/22 16:30 Temperature 97.1 F L Pulse Rate 82 88 Respiratory Rate 19 16 Blood Pressure 174/93 H 158/87 H 158/84 H Pulse Oximetry 99 100 Oxygen Delivery Method Room Air Oxygen Flow Rate 0 03/15/22 14:18 03/15/22 16:30 03/15/22 21:02 Temperature 98.4 F Pulse Rate 78 89 Respiratory Rate 22 Blood Pressure 158/79 H 134/83 Pulse Oximetry 98 Oxygen Delivery Method Room Air Oxygen Flow Rate Oxygen Delivery Method Room Air Oxygen Flow Rate 0 Const General: comfortable Resp Effort & Inspection: normal respiratory effort Cardio Rate: regular rate Rhythm: regular rhythm (sinus) Objective Labs Result Diagrams: 03/15/22 12:15 03/15/22 19:05 Labs: Laboratory Results - last 24 hr 03/15/22 03/15/22 03/15/22 12:15 12:15 12:15 WBC 4.7 RBC 3.99 L Hgb 14.3 Hct 38.6 L MCV 96.8 MCH 35.9 H MCHC 37.1 H RDW 11.9 Plt Count 156 Neut % (Auto) 71.7 Lymph % (Auto) 12.3 L Mcduffie % (Auto) 15.2 H Eos % (Auto) 0.2 L Baso % (Auto) 0.6 Neut # (Auto) 3400 Lymph # (Auto) 600 L Mcduffie # (Auto) 700 Eos # (Auto) 0 Baso # (Auto) 0 RBC Morphology See below Macrocytosis 1+ H Sodium 116 L* Potassium 4.1 Chloride 83 L Carbon Dioxide 26 BUN 10 Creatinine 0.88 Estimated GFR > 60 BUN/Creatinine Ratio 11.4 Glucose 92 Calcium 8.3 L Total Bilirubin 3.7 H AST 87 H ALT 52 H Alkaline Phosphatase 99 Total Protein 7.3 Albumin 4.0 Globulin 3.3 Albumin/Globulin Ratio 1.2 Lipase 32 D Procalcitonin TSH 3.18 Ur Random Sodium Ethyl Alcohol SARS-CoV-2 (PCR) 03/15/22 03/15/22 03/15/22 12:53 13:25 13:30 WBC RBC Hgb Hct MCV MCH MCHC RDW Plt Count Neut % (Auto) Lymph % (Auto) Mcduffie % (Auto) Eos % (Auto) Baso % (Auto) Neut # (Auto) Lymph # (Auto) Mcduffie # (Auto) Eos # (Auto) Baso # (Auto) RBC Morphology Macrocytosis Sodium Potassium Chloride Carbon Dioxide BUN Creatinine Estimated GFR BUN/Creatinine Ratio Glucose Calcium Total Bilirubin AST ALT Alkaline Phosphatase Total Protein Albumin Globulin Albumin/Globulin Ratio Lipase Procalcitonin TSH 2.47 Ur Random Sodium 5 L Ethyl Alcohol SARS-CoV-2 (PCR) Negative 03/15/22 03/15/22 03/15/22 13:30 19:00 19:05 WBC RBC Hgb Hct MCV MCH MCHC RDW Plt Count Neut % (Auto) Lymph % (Auto) Mcduffie % (Auto) Eos % (Auto) Baso % (Auto) Neut # (Auto) Lymph # (Auto) Mcduffie # (Auto) Eos # (Auto) Baso # (Auto) RBC Morphology Macrocytosis Sodium 122 L 122 L Potassium 3.7 Chloride 86 L Carbon Dioxide 29 BUN 11 Creatinine 0.82 Estimated GFR > 60 BUN/Creatinine Ratio 13.4 Glucose 113 H Calcium 8.5 Total Bilirubin AST ALT Alkaline Phosphatase Total Protein Albumin Globulin Albumin/Globulin Ratio Lipase Procalcitonin 0.14 TSH Ur Random Sodium Ethyl Alcohol < 10 SARS-CoV-2 (PCR) Assessment & Plan Assessment and plan (1) Hyponatremia: Problem details: Appears euvolemic; history and random urine Na+ of 5 consistent with water intoxication Status: Acute Plan: -Rate of Na+ increase appears slightly fast-->decreased D5NS from 100 to 50 mL/hr ; IVF can probably be stopped with next serum Na+. Normal TSH noted. (2) Essential hypertension: Status: Chronic Plan: -Losartan/carvedilol as per bedside team (3) Alcoholism: Status: Chronic Plan: -CIWA (4) Paroxysmal atrial fibrillation: Status: Chronic Plan: -Currently in NSR; follow (5) Current smoker: Problem details: 1/2ppd since age 35 Status: Chronic Plan: -Cessation counseling (6) Acquired hypothyroidism: Status: Chronic Plan: -see hypoNa+ Time Spent With Patient Critical Care time: I spent a total of 20 minutes of time on this patient's care today; this time is exclusive of procedural time.
[2022-03-16] VITALS (22 sets, daily range): BP systolic 125–160; BP diastolic 70–86; PULSE 62–91; RESP 12–30; TEMP 36.1–36.6; O2SAT 95–99
[2022-03-16 01:24] LABS: BUN Creatinine Ratio 16.2 (6-22); Blood Urea Nitrogen 12 mg/dL (9-20); Calcium 8.3 mg/dL (8.4-10.2); Carbon Dioxide 27 mmol/L (22-32); Chloride 92 mmol/L (98-107); Estimated Glomerular Filt Rate > 60 mL/min (>60); Glucose 108 mg/dL (80-110); HEMOLYSIS < 15 (0-50); Potassium 3.7 mmol/L (3.4-5.1); Sodium 126 mmol/L (137-145)
--- NOTE | 2022-03-16 02:01 | P.TELICUIN_ITS ---
Teleintensivist Intervention Date/Time Was camera activated?: No Issue(s) Addressed Issue(s): Abnormal labs and Electrolytes Other:: Hyponatremia Intervention(s) :: Patient's repeat Na at 0100 was 126, up from 122. Given that Na level @ 12:15 on 03/15 was 116, this increase is over the goal of 6-8. Will hold D5NS now (was at 50/hour). Patient ordered for DDAVP 2mcg x 1now and 600cc of D5W to be infuse d over the next 3 hours. Ordered for repeat BMP after D5W complete. Goal Na is about 122-124 to avoid rapid over-correction. Plan discussed with: Nurse
[2022-03-16] MEDS: DEXTROSE 5% WATER 1,000 ML 200 ML IV (02:08)
[2022-03-16] MEDS: DESMOPRESSIN 4 MCG/ML AMPUL 2 MCG IV (02:58)
[2022-03-16] MEDS: PANTOPRAZOLE DR 20 MG TABLET PO (05:25)
[2022-03-16] MEDS: LEVOTHYROXINE 75 MCG TABLET PO (05:25)
[2022-03-16 06:21] LABS: BUN Creatinine Ratio 13.7 (6-22); Blood Urea Nitrogen 10 mg/dL (9-20); Calcium 7.8 mg/dL (8.4-10.2); Carbon Dioxide 30 mmol/L (22-32); Chloride 92 mmol/L (98-107); Estimated Glomerular Filt Rate > 60 mL/min (>60); Glucose 97 mg/dL (80-110); HEMOLYSIS < 15 (0-50); Potassium 3.4 mmol/L (3.4-5.1); Sodium 125 mmol/L (137-145)
[2022-03-16] MEDS: carvediloL 3.125 MG TABLET PO ×2 (08:13→22:06)
[2022-03-16] MEDS: THIAMINE 100 MG TABLET PO (08:13)
[2022-03-16] MEDS: FOLIC ACID 1 MG TABLET PO (08:13)
[2022-03-16] MEDS: MULTIVITAMIN 1 TABLET 1 TAB PO (08:13)
[2022-03-16] MEDS: LOSARTAN 25 MG TABLET PO (08:14)
--- NOTE | 2022-03-16 08:24 | P.PN_ITS ---
Subjective Subjective Date Patient Seen: 03/16/22 Time Patient Seen: 08:04 Interval history: Patient said he had difficulty sleeping last night. No other real issues Sodium jumped up unfortunately. IV fluids were appropriately diminished and he was also given some DDAVP. Sodium this morning is still probably a bit higher than I would ideally like it to be. Patient asking in part for help at home a caregiver is specifically what he is asking for Exam Vital Signs (past 8 hours): - 03/16/22 04:00 03/16/22 03:00 03/16/22 04:00 Temperature 97.4 F L Pulse Rate 64 67 Respiratory Rate 17 12 Blood Pressure 160/79 H Pulse Oximetry 99 95 Oxygen Delivery Method Room Air Oxygen Flow Rate 0 0 03/16/22 06:00 03/16/22 01:00 03/16/22 02:00 Temperature 97.0 F L Pulse Rate 91 H 86 69 Respiratory Rate 28 H 30 H 29 H Blood Pressure 152/78 H 146/71 H Pulse Oximetry 95 98 Oxygen Delivery Method Oxygen Flow Rate 0 0 03/16/22 05:00 03/16/22 07:00 03/16/22 07:00 Temperature 97.4 F L 98 F Pulse Rate 72 63 Respiratory Rate 20 16 Blood Pressure 157/73 H 157/78 H Pulse Oximetry Oxygen Delivery Method Oxygen Flow Rate 03/16/22 08:00 03/16/22 08:01 03/16/22 08:01 Temperature 98 F Pulse Rate 62 63 Respiratory Rate 19 18 Blood Pressure 158/79 H Pulse Oximetry 97 Oxygen Delivery Method Oxygen Flow Rate 0 03/16/22 08:13 03/16/22 08:14 Temperature Pulse Rate 73 73 Respiratory Rate Blood Pressure 158/79 H 158/79 H Pulse Oximetry Oxygen Delivery Method Oxygen Flow Rate Oxygen Delivery Method Room Air Oxygen Flow Rate 0 Objective Labs Result Diagrams: 03/15/22 12:15 03/16/22 05:33 Labs: Laboratory Results - last 24 hr 03/15/22 03/15/22 03/15/22 12:15 12:15 12:15 WBC 4.7 RBC 3.99 L Hgb 14.3 Hct 38.6 L MCV 96.8 MCH 35.9 H MCHC 37.1 H RDW 11.9 Plt Count 156 Neut % (Auto) 71.7 Lymph % (Auto) 12.3 L [place] % (Auto) 15.2 H Eos % (Auto) 0.2 L Baso % (Auto) 0.6 Neut # (Auto) 3400 Lymph # (Auto) 600 L [place] # (Auto) 700 Eos # (Auto) 0 Baso # (Auto) 0 RBC Morphology See below Macrocytosis 1+ H Sodium 116 L* Potassium 4.1 Chloride 83 L Carbon Dioxide 26 BUN 10 Creatinine 0.88 Estimated GFR > 60 BUN/Creatinine Ratio 11.4 Glucose 92 Calcium 8.3 L Total Bilirubin 3.7 H AST 87 H ALT 52 H Alkaline Phosphatase 99 Total Protein 7.3 Albumin 4.0 Globulin 3.3 Albumin/Globulin Ratio 1.2 Lipase 32 D Procalcitonin TSH 3.18 Ur Random Sodium Nasal Screen MRSA (PCR) Ethyl Alcohol SARS-CoV-2 (PCR) 03/15/22 03/15/22 03/15/22 12:53 13:25 13:30 WBC RBC Hgb Hct MCV MCH MCHC RDW Plt Count Neut % (Auto) Lymph % (Auto) [place] % (Auto) Eos % (Auto) Baso % (Auto) Neut # (Auto) Lymph # (Auto) [place] # (Auto) Eos # (Auto) Baso # (Auto) RBC Morphology Macrocytosis Sodium Potassium Chloride Carbon Dioxide BUN Creatinine Estimated GFR BUN/Creatinine Ratio Glucose Calcium Total Bilirubin AST ALT Alkaline Phosphatase Total Protein Albumin Globulin Albumin/Globulin Ratio Lipase Procalcitonin TSH 2.47 Ur Random Sodium 5 L Nasal Screen MRSA (PCR) Ethyl Alcohol SARS-CoV-2 (PCR) Negative 03/15/22 03/15/22 03/15/22 13:30 18:55 19:00 WBC RBC Hgb Hct MCV MCH MCHC RDW Plt Count Neut % (Auto) Lymph % (Auto) [place] % (Auto) Eos % (Auto) Baso % (Auto) Neut # (Auto) Lymph # (Auto) [place] # (Auto) Eos # (Auto) Baso # (Auto) RBC Morphology Macrocytosis Sodium 122 L Potassium Chloride Carbon Dioxide BUN Creatinine Estimated GFR BUN/Creatinine Ratio Glucose Calcium Total Bilirubin AST ALT Alkaline Phosphatase Total Protein Albumin Globulin Albumin/Globulin Ratio Lipase Procalcitonin 0.14 TSH Ur Random Sodium Nasal Screen MRSA (PCR) Negative for mrsa Ethyl Alcohol < 10 SARS-CoV-2 (PCR) 03/15/22 03/16/22 03/16/22 19:05 01:05 05:33 WBC RBC Hgb Hct MCV MCH MCHC RDW Plt Count Neut % (Auto) Lymph % (Auto) [place] % (Auto) Eos % (Auto) Baso % (Auto) Neut # (Auto) Lymph # (Auto) [place] # (Auto) Eos # (Auto) Baso # (Auto) RBC Morphology Macrocytosis Sodium 122 L 126 L 125 L Potassium 3.7 3.7 3.4 Chloride 86 L 92 L 92 L Carbon Dioxide 29 27 30 BUN 11 12 10 Creatinine 0.82 0.74 0.73 Estimated GFR > 60 > 60 > 60 BUN/Creatinine Ratio 13.4 16.2 13.7 Glucose 113 H 108 97 Calcium 8.5 8.3 L 7.8 L Total Bilirubin AST ALT Alkaline Phosphatase Total Protein Albumin Globulin Albumin/Globulin Ratio Lipase Procalcitonin TSH Ur Random Sodium Nasal Screen MRSA (PCR) Ethyl Alcohol SARS-CoV-2 (PCR) [facility] Medical History Alcohol dependence Alcoholism Anoxic brain injury Cardiomyopathy Cataracts, bilateral (2007) Chronic cough (1999) COPD (chronic obstructive pulmonary disease) Dislocated elbow (2000) Dislocated shoulder (2001) Eczema (2016) Elevated liver function tests Essential hypertension Fractures (~1963) GERD (gastroesophageal reflux disease) Hypothyroidism Impaired vision Paroxysmal atrial fibrillation Pulmonary nodule (~07/2019) Surgical History History of cataract removal with insertion of prosthetic lens History of nasal surgery (1963) History of repair of hiatal hernia Hx of hernia repair (1995) Family History Father History of arteriosclerotic cardiovascular disease History of emphysema Mother Cancer Grandfather No problems noted. Grandmother Stroke Grandfather No problems noted. Grandmother No problems noted. Social History household members: none Smoking Status: Current every day smoker Tobacco: How many years used: 22 quit status: not considering quitting second hand exposure: No alcohol intake: current substance use type: does not use Assessment & Plan Assessment & Plan narrative: 1. Hyponatremia-likely secondary to water intoxication as replacement for the alcohol that he was not receiving. Improved patient should be feeling better. Plan to recheck his numbers late this morning looking for stability over time. This point I do not believe there be benefit in trying to reduce his sodium nor do I think this should be an effort to try and increase it beyond what will naturally do on its own. I presume that will slowly go back up into the normal range as he eats and drinks more normally here in the hospital. If his next sodium is not greatly changed than he can likely be removed from ICU status and placed back in regular floor status. 2. Weakness-likely at least in part secondary to the hyponatremia. Will need to be seen by Physical therapy and Occupational therapy and evaluated. 3. Alcohol use disorder-I think at this point there is no evidence of withdrawal and patient almost certainly has been off the alcohol now for more than a week. I think it is probably safe to discontinue seizure precautions eventually will discontinue any sort of evaluation for alcohol withdrawal 4. Hypertension-numbers are adequately controlled continue current medications 5. Disposition-I think patient would benefit from some sort of assisted living [facility] even when ready for discharge. He has yet to be evaluated by skilled therapies but that will happen likely later today. I am not certain he can get enough assistance at home to live independently but that may be an option as well depending on his coverage. Will defer to care management team regarding this but likely he will need placement in intermediate to start with. Note: Greater than 30 minutes total time was spent on day of service, evaluating the patient on the floor, including examining the patient, discussing clinical course with clinical and nursing staff, reviewing clinical course in the computer, preparing documentation and writing orders for continued management of care, discussing status with family as appropriate, reviewing plans for the next 24 hours with both patient/family and nursing staff as appropriate.
--- NOTE | 2022-03-16 09:18 | CM.DPNOTE ---
Faxed referral to [facility]. Jazmin Reyes CM Wool Fleece Grader
--- NOTE | 2022-03-16 09:47 | P.TELICUPN_ITS ---
Subjective Subjective If camera was activated, add TeleICU A-V statement: Patient was discussed with bedside nurse using 2 way A-V equipment Patient Location: ICU Provider location (State): [place] Interval history: Patient doin well, no signs of withdrawal Current Medications Current Medications Medications: Home Medications losartan 25 mg tablet 25 mg PO DAILY #90 tabs 05/22/21 [Rx Confirmed 03/15/22] omeprazole 20 mg capsule,delayed release 20 mg PO DAILY #30 caps 05/25/21 [Rx Confirmed 03/15/22] carvedilol 3.125 mg tablet 3.125 mg PO BID #180 tabs 07/21/21 [Rx Confirmed 03/15/22] levothyroxine 75 mcg tablet (Synthroid) 75 mcg PO QDAY #90 tabs 07/21/21 [Rx Confirmed 03/15/22] Visit Medications (administered) Generic Name Dose Route Start Last Admin Trade Name Freq PRN Reason Stop Dose Admin Acetaminophen 650 mg 03/15/22 16:30 03/15/22 21:03 Acetaminophen 325 Mg Tablet PO 650 mg Q6HR PRN Administration Fever/Mild Pain (1-3) Carvedilol 3.125 mg 03/15/22 21:00 03/16/22 08:13 Carvedilol 3.125 Mg Tablet PO 3.125 mg BID CAILIN Administration Folic Acid 1 mg 03/16/22 09:00 03/16/22 08:13 Folic Acid 1 Mg Tablet PO 1 mg DAILY CAILIN Administration Levothyroxine Sodium 75 mcg 03/16/22 06:00 03/16/22 05:25 Levothyroxine 75 Mcg Tablet PO 75 mcg 0600 CAILIN Administration Losartan Potassium 25 mg 03/16/22 09:00 03/16/22 08:14 Losartan 25 Mg Tablet PO 25 mg DAILY CAILIN Administration Multivitamins 1 tab 03/16/22 09:00 03/16/22 08:13 Multivitamin 1 Tablet PO 1 tab DAILY CAILIN Administration Pantoprazole Sodium 20 mg 03/16/22 06:00 03/16/22 05:[address] 20 Mg Tablet PO 20 mg 0600 CAILIN Administration Thiamine HCl 100 mg 03/16/22 09:00 03/16/22 08:13 Thiamine 100 Mg Tablet PO 03/19/22 09:01 100 mg DAILY CAILIN Administration Objective Labs Result Diagrams: 03/15/22 12:15 03/16/22 05:33 Labs: Laboratory Results - last 24 hr 03/15/22 03/15/22 03/15/22 12:15 12:15 12:15 WBC 4.7 RBC 3.99 L Hgb 14.3 Hct 38.6 L MCV 96.8 MCH 35.9 H MCHC 37.1 H RDW 11.9 Plt Count 156 Neut % (Auto) 71.7 Lymph % (Auto) 12.3 L [place] % (Auto) 15.2 H Eos % (Auto) 0.2 L Baso % (Auto) 0.6 Neut # (Auto) 3400 Lymph # (Auto) 600 L [place] # (Auto) 700 Eos # (Auto) 0 Baso # (Auto) 0 RBC Morphology See below Macrocytosis 1+ H Sodium 116 L* Potassium 4.1 Chloride 83 L Carbon Dioxide 26 BUN 10 Creatinine 0.88 Estimated GFR > 60 BUN/Creatinine Ratio 11.4 Glucose 92 Calcium 8.3 L Total Bilirubin 3.7 H AST 87 H ALT 52 H Alkaline Phosphatase 99 Total Protein 7.3 Albumin 4.0 Globulin 3.3 Albumin/Globulin Ratio 1.2 Lipase 32 D Procalcitonin TSH 3.18 Ur Random Sodium Nasal Screen MRSA (PCR) Ethyl Alcohol SARS-CoV-2 (PCR) 03/15/22 03/15/22 03/15/22 12:53 13:25 13:30 WBC RBC Hgb Hct MCV MCH MCHC RDW Plt Count Neut % (Auto) Lymph % (Auto) [place] % (Auto) Eos % (Auto) Baso % (Auto) Neut # (Auto) Lymph # (Auto) [place] # (Auto) Eos # (Auto) Baso # (Auto) RBC Morphology Macrocytosis Sodium Potassium Chloride Carbon Dioxide BUN Creatinine Estimated GFR BUN/Creatinine Ratio Glucose Calcium Total Bilirubin AST ALT Alkaline Phosphatase Total Protein Albumin Globulin Albumin/Globulin Ratio Lipase Procalcitonin TSH 2.47 Ur Random Sodium 5 L Nasal Screen MRSA (PCR) Ethyl Alcohol SARS-CoV-2 (PCR) Negative 03/15/22 03/15/22 03/15/22 13:30 18:55 19:00 WBC RBC Hgb Hct MCV MCH MCHC RDW Plt Count Neut % (Auto) Lymph % (Auto) [place] % (Auto) Eos % (Auto) Baso % (Auto) Neut # (Auto) Lymph # (Auto) [place] # (Auto) Eos # (Auto) Baso # (Auto) RBC Morphology Macrocytosis Sodium 122 L Potassium Chloride Carbon Dioxide BUN Creatinine Estimated GFR BUN/Creatinine Ratio Glucose Calcium Total Bilirubin AST ALT Alkaline Phosphatase Total Protein Albumin Globulin Albumin/Globulin Ratio Lipase Procalcitonin 0.14 TSH Ur Random Sodium Nasal Screen MRSA (PCR) Negative for mrsa Ethyl Alcohol < 10 SARS-CoV-2 (PCR) 03/15/22 03/16/22 03/16/22 19:05 01:05 05:33 WBC RBC Hgb Hct MCV MCH MCHC RDW Plt Count Neut % (Auto) Lymph % (Auto) [place] % (Auto) Eos % (Auto) Baso % (Auto) Neut # (Auto) Lymph # (Auto) [place] # (Auto) Eos # (Auto) Baso # (Auto) RBC Morphology Macrocytosis Sodium 122 L 126 L 125 L Potassium 3.7 3.7 3.4 Chloride 86 L 92 L 92 L Carbon Dioxide 29 27 30 BUN 11 12 10 Creatinine 0.82 0.74 0.73 Estimated GFR > 60 > 60 > 60 BUN/Creatinine Ratio 13.4 16.2 13.7 Glucose 113 H 108 97 Calcium 8.5 8.3 L 7.8 L Total Bilirubin AST ALT Alkaline Phosphatase Total Protein Albumin Globulin Albumin/Globulin Ratio Lipase Procalcitonin TSH Ur Random Sodium Nasal Screen MRSA (PCR) Ethyl Alcohol SARS-CoV-2 (PCR) Exam Vital Signs (past 8 hours): - 03/16/22 04:00 03/16/22 03:00 03/16/22 04:00 Temperature 97.4 F L Pulse Rate 64 67 Respiratory Rate 17 12 Blood Pressure 160/79 H Pulse Oximetry 99 95 Oxygen Delivery Method Room Air Oxygen Flow Rate 0 0 03/16/22 06:00 03/16/22 02:00 03/16/22 05:00 Temperature 97.0 F L 97.4 F L Pulse Rate 91 H 69 72 Respiratory Rate 28 H 29 H 20 Blood Pressure 152/78 H 146/71 H 157/73 H Pulse Oximetry 95 98 Oxygen Delivery Method Oxygen Flow Rate 0 0 03/16/22 07:00 03/16/22 07:00 03/16/22 08:00 Temperature 98 F Pulse Rate 63 62 Respiratory Rate 16 19 Blood Pressure 157/78 H Pulse Oximetry Oxygen Delivery Method Oxygen Flow Rate 03/16/22 08:01 03/16/22 08:01 03/16/22 08:13 Temperature 98 F Pulse Rate 63 73 Respiratory Rate 18 Blood Pressure 158/79 H 158/79 H Pulse Oximetry 97 Oxygen Delivery Method Oxygen Flow Rate 0 03/16/22 08:14 03/16/22 09:00 03/16/22 09:00 Temperature Pulse Rate 73 78 Respiratory Rate 29 H Blood Pressure 158/79 H 135/79 Pulse Oximetry Oxygen Delivery Method Oxygen Flow Rate Oxygen Delivery Method Room Air Oxygen Flow Rate 0 Quality TeleICU Stress Ulcer Stress ulcer prophylaxis: no and not appropriate Assessment & Plan Assessment and plan (1) Hyponatremia: Problem details: Appears euvolemic; history and random urine Na+ of 5 consistent with water intoxication Status: Acute Plan: Latest Na 125, came in with Na 116. If next Na check mid 120s, OK to stop checking. Looking at his old numbers will probably settle in low 130s. Per history replaced ETOH with Water. He has normally functioning kidneys thus will probably quickly equilibrate once water removed from the picture (2) Alcoholism: Status: Chronic Plan: Monitor for withdrawals Time Spent With Patient Critical Care time: I spent a total of [35] minutes of critical care time on this patient's care today; this time is exclusive of procedural time.
[2022-03-16 13:33] LABS: BUN Creatinine Ratio 14.5 (6-22); Blood Urea Nitrogen 10 mg/dL (9-20); Carbon Dioxide 29 mmol/L (22-32); Chloride 91 mmol/L (98-107); Estimated Glomerular Filt Rate > 60 mL/min (>60); Glucose 103 mg/dL (80-110); HEMOLYSIS < 15 (0-50); Potassium 3.8 mmol/L (3.4-5.1); Sodium 125 mmol/L (137-145)
--- NOTE | 2022-03-16 14:27 | PT.IIE ---
Current Diagnoses Hypothyroidism, unspecified (03/15/22) Hypo-osmolality and hyponatremia (03/15/22) Alcohol dependence, uncomplicated (03/15/22) Nicotine dependence, unspecified, uncomplicated (03/15/22) Essential (primary) hypertension (03/15/22) Paroxysmal atrial fibrillation (03/15/22) Surgical History (Last Reviewed 03/15/22 @ 21:11 by Chuck Grant MD) History of cataract removal with insertion of prosthetic lens History of nasal surgery (1963) History of repair of hiatal hernia Hx of hernia repair (1995) Medical History (Last Reviewed 03/15/22 @ 21:11 by Chuck Grant MD) Alcohol dependence Alcoholism Anoxic brain injury Cardiomyopathy Cataracts, bilateral (2007) Chronic cough (1999) COPD (chronic obstructive pulmonary disease) Dislocated elbow (2000) Dislocated shoulder (2001) Eczema (2016) Elevated liver function tests Essential hypertension Fractures (~1963) GERD (gastroesophageal reflux disease) Hypothyroidism Impaired vision Paroxysmal atrial fibrillation Pulmonary nodule (~07/2019) Physical Therapy Inpatient Evaluation/Re-Eval M1 PT/OT-IP Prior Functional Status Start: 03/16/22 14:14 Freq: Status: Active Protocol: Document 03/16/22 14:14 BC (Rec: 03/16/22 14:27 BC [id number]) Medical Review Prior Functional Status Medical History Reviewed Yes Mobility and Gait Use of 4WW; frequent falls Activities of Daily Living and IADL's Currently no assist with ADLs, reports falling frequently Prior Functional Level (Other details) Pt lives [place] at [facility] apartments. States he has been declining since Sep 2021. He no longer can do his own shopping, is falling frequently, and reports difficulty with home/self care adls (showering/laundry) Social History Household Members none Living Arrangements Apartment/Condo Number of Stairs To Enter/Railing? elevator to apt Home Environment Standard Height Toilet,Walk in Shower Home Equipment Four Wheel Walker,Grab Bars In Shower M2 PT-IP Current Condition Start: 03/16/22 14:14 Freq: Status: Active Protocol: Document 03/16/22 14:14 BC (Rec: 03/16/22 14:27 BC [id number]) Physical Therapy Current Condition Current Condition Evaluation Date 03/16/22 Treatment Diagnosis Unsteady gait Onset Date 03/15/22 M3 PT-IP Subjective Start: 03/16/22 14:14 Freq: Status: Active Protocol: Document 03/16/22 14:14 BC (Rec: 03/16/22 14:27 BC [id number]) Subjective Physical Therapy Visit Type Type Initial Evaluation Visit Start Time 13:10 Visit Stop Time 13:45 Total Visit Minutes 30 Physical Therapy Visit Comments Patient Goals To get more help in his home Therapy Pain Assessment Pain When Pain Assessed At Rest Pain Present Pain Present Denied Pain M4 PT-IP Mobility and Gait Start: 03/16/22 14:14 Freq: Status: Active Protocol: Document 03/16/22 14:14 BC (Rec: 03/16/22 14:27 BC [id number]) PT-Bed Mobility Assessment Rolling Level of Assist Independent Supine to Sit Supine to Sit Contact Guard Assistance Sit to Supine Sit to Supine Minimal Assistance Scooting Scooting to Edge of Bed Contact Guard Assistance PT-Transfer Assessment Sit to and From Stand Sit to and from Stand Minimal Assistance Equipment Transfer Assistive Device Gait Belt,Front Wheeled Walker Transfers Transfer Destination Bed Transfer Technique Stand Pivot Transfer Ability Level of Assist Contact Guard Assistance Comments Mobility Comments Retropulsive with inital stance, needing min A to prevent posterior LOB. Min A from low height surface/chair in room for sit<>stand due to LE weakness. Min A donning pants for balance and tying drawstring. Gait Assessment Gait Gait Assistance Required: Contact Guard Assist,Minimum Assistance Distance (Feet) 200 Assistive Devices Assistive Device Gait Belt,Front Wheeled Walker Gait Deviations General Gait Pattern Ataxic,Decreased Stride Length ,Decreased Feet Clearance Factors Limiting Gait Function Factors Limiting Gait Function Decreased Activity Tolerance, Decreased Strength, Incoordination,Poor Balance Comments Gait Comments LLE ataxic swing phase with increased hip circumduction and lacking knee/hip flexion. He can demonstrate hip/knee flx ROM when cued to walk and march forward but otherwise his LLE remains rather rigid in extension during swing phase. LOB occurring with dual task, head turns and conversation. Retropulsive with balance in standing unless given FWW and/or min A. PT-Balance Assessment Sitting Balance and Reactions Static Sitting Balance Ability Normal Dynamic Sitting Balance Ability Good Standing Balance and Reactions Static Standing Balance Ability Fair Dynamic Standing Balance Ability Fair Device Used FWW Functional Assessments Functional Tests Tinetti Balance and Gait Assessment Tinetti score 13/28 M5 PT-IP Objective Assessments Start: 03/16/22 14:14 Freq: Status: Active Protocol: Document 03/16/22 14:14 BC (Rec: 03/16/22 14:27 [id number]) Orientation Orientation/Cognition Level of Alertness Alert Orientation Name,Year,Place,Situation Gross Range of Motion Upper Extremity ROM Assessment Left Impaired Impairments Reduced L shoulder ROM Lower Extremity ROM Assessment Within Functional Limits Strength Upper Extremity Strength Assessment Bilaterally Impaired Lower Extremity Strength Assessment Bilaterally Impaired Comments Strength Comments Strength screening reveals grossly 3+ to 4-/5 throughout all extremities Coordination Assessment Gross Coordination Gross Coordination Impaired Assessment Foot Tapping Test Moderate Impairment Heel on Barney Test Moderate Impairment Coordination Comments LLE coordination appears impaired; ataxic in nature Muscle Tone Muscle Tone WNL Yes M7 PT-IP Assessment and Plan Start: 03/16/22 14:14 Freq: Status: Active Protocol: Document 03/16/22 14:14 BC (Rec: 03/16/22 14:27 [id number]) PT Summary Assessment and Plan Potential Rehabilitation Potential Good Status of Condition at Evaluation Stable Summary Impairments Strength,Balance,Coordination, Bed Mobility,Transfers,Gait, Activity Tolerance Progress Towards Goals Progressing Toward Goals Assessment Summary Pt admitted from home due to hyponatremia and frequent falls. Pt has multiple skin tears of varying degrees of healing on BLE's. He reports falls have increased in the last month even with use of his 4WW. He reports a slow decline since Sep 2021. His PLOF was independent with 4WW, able to do his own cleaning and shopping. CLOF he is reporting nearly daily falls, he presents with ataxic movement patterns of LLE, he is retropulsive in standing and is a high fall risk on Tinetti. He requires min to CGA for bed mobility, transfers, and ambulation. Recommend SNF for daily therapy for improved balance, coordination and mobility independence. Goals Bed Mobility Goal Independent Transfer Goal Independent Gait Goal Independent,Four Wheel Walker Gait Distance 500 Other Goals Pt will maintain balance while reaching/lifting objects from floor to walker height with SBA for balance during home care ADLs. Days to Meet Goals 3 Frequency of Treatment Frequency Of Treatment Once a Day Treatment Plan Physical Therapy Treatment Plan Bed Mobility Training,Transfer Training,Gait Training, Therapeutic Exercise,Balance Retraining,Discharge Planning, Neuromuscular Re-ed, Coordination Retraining Recommendations To Nursing Amount of Assist Needed 1 Person Assist Discharge Recommendations PT Discharge Recommendations SNF Rehab Transportation Needs at Discharge Wheelchair/Cabulance
--- NOTE | 2022-03-16 15:33 | CM.DPC ---
DCP SNF Planning vs Home Per MD, pt making medical progress but not stable for d/c yet today and to work with PT. Per PT, pt actually ambulates well but balance and safety issues and below baseline with many falls and recommending SNF for strengthening prior to return home. SW ordered OT as pt's insurance will need OT eval to review towards SNF auth. Pt has hx of [facility] for SNF and SW called and CC Jazmin faxed clinicals. SW called [facility] admissions and provided new referral and they are willing to review. SW faxed [facility], [facility], and [facility] requesting review. [facility] not yet completed at this time due to triage needs. ZEESHAN confirmed with [facility] that pt just started on services 02/23/22 for HH RN/PT/OT/ST/CARTOGRAPHY TECHNICIAN/ORGANIC CHEMIST and could Resume services if pt discharges home. Per ED ORGANIC CHEMIST note, Gregory with [facility] has new referral for pt and agreeable with helping pt to complete his Medicaid [place] application towards getting in-home caregiver assist. Plan: SW to follow for SNF reviews to determine if they can accept and start [facility] SNF auth for insurance vs return home with Resume [facility] and [facility] and LTC planning. Ramona Andino, ORGANIC CHEMIST
[2022-03-17] VITALS (10 sets, daily range): BP systolic 124–170; BP diastolic 68–90; PULSE 63–76; RESP 16–18; TEMP 36.3–36.7; O2SAT 95–100
[2022-03-17] MEDS: LORazepam 1 MG TABLET PO (00:39)
[2022-03-17 05:59] LABS: BUN Creatinine Ratio 14.3 (6-22); Blood Urea Nitrogen 8 mg/dL (9-20); Calcium 7.9 mg/dL (8.4-10.2); Carbon Dioxide 28 mmol/L (22-32); Chloride 90 mmol/L (98-107); Estimated Glomerular Filt Rate > 60 mL/min (>60); Glucose 120 mg/dL (80-110); HEMOLYSIS 41 (0-50); Potassium 3.8 mmol/L (3.4-5.1); Sodium 123 mmol/L (137-145)
[2022-03-17] MEDS: PANTOPRAZOLE DR 20 MG TABLET PO (06:21)
[2022-03-17] MEDS: LEVOTHYROXINE 75 MCG TABLET PO (06:21)
[2022-03-17] MEDS: FOLIC ACID 1 MG TABLET PO (08:03)
[2022-03-17] MEDS: MULTIVITAMIN 1 TABLET 1 TAB PO (08:03)
[2022-03-17] MEDS: ENOXAPARIN 40 MG/0.4 ML SYRINGE SUBCUT (08:03)
[2022-03-17] MEDS: THIAMINE 100 MG TABLET PO (08:03)
[2022-03-17] MEDS: LOSARTAN 25 MG TABLET PO (08:04)
[2022-03-17] MEDS: carvediloL 3.125 MG TABLET PO ×2 (08:06→20:02)
--- NOTE | 2022-03-17 08:46 | P.PN_ITS ---
Subjective Subjective Date Patient Seen: 03/17/22 Time Patient Seen: 08:46 Interval history: Patient seen and evaluated this morning patient had a long night last night did not sleep much. Doing well this morning. Eating his breakfast. Says he has had a lot of falls. Been drinking lots of water. He has been urinating a lot he says that has gotten much better. No shakes or tremors. Knows he is in [facility] was waiting for Dr. Wyman this morning. Patient has some impulsivity at times. History is a little bit difficult to obtain from patient other than he says I am not feeling well but he is doing better now. Lives here in [place] has a brother in [facility] previously was a [facility] for rehabilitation after previous hospital admission did well and was able to go home. Patient states he needs more help at home. Has had 3 different emergency room visits for falls over the last few months.. Exam Vital Signs (past 8 hours): - 03/17/22 01:30 03/17/22 04:00 03/17/22 08:04 Temperature 97.5 F L Pulse Rate 76 65 72 Respiratory Rate 16 16 Blood Pressure 124/76 152/68 H 137/84 Pulse Oximetry 98 03/17/22 08:06 Temperature Pulse Rate 74 Respiratory Rate Blood Pressure 137/84 Pulse Oximetry Oxygen Delivery Method Room Air Oxygen Flow Rate 0 Narrative Exam Narrative: Gen.: Alert oriented to person place he thinks it is March. HEENT: Pupils equal round and reactive or mucosa is moist neck is supple Cardio: S1-S2 regular rate and rhythm Respiratory: Normal respiratory effort lungs are clear Abdomen: Soft no distension Extremities: Lower extremity no edema. Has a number scrapes and bruises on his right and left lower extremity Neurologic: No focal neurological deficits. No tremor Objective Labs Result Diagrams: 03/15/22 12:15 03/17/22 04:55 Labs: Laboratory Results - last 24 hr 03/16/22 03/17/22 11:45 04:55 Sodium 125 L 123 L Potassium 3.8 3.8 Chloride 91 L 90 L Carbon Dioxide 29 28 BUN 10 8 L Creatinine 0.69 0.56 L Estimated GFR > 60 > 60 BUN/Creatinine Ratio 14.5 14.3 Glucose 103 120 H Calcium 8.0 L 7.9 L [facility] Medical History Alcohol dependence Alcoholism Anoxic brain injury Cardiomyopathy Cataracts, bilateral (2007) Chronic cough (1999) COPD (chronic obstructive pulmonary disease) Dislocated elbow (2000) Dislocated shoulder (2001) Eczema (2017) Elevated liver function tests Essential hypertension Fractures (~1963) GERD (gastroesophageal reflux disease) Hypothyroidism Impaired vision Paroxysmal atrial fibrillation Pulmonary nodule (~07/2019) Surgical History History of cataract removal with insertion of prosthetic lens History of nasal surgery (1963) History of repair of hiatal hernia Hx of hernia repair (1995) Family History Father History of arteriosclerotic cardiovascular disease History of emphysema Mother Cancer Grandfather No problems noted. Grandmother Stroke Grandfather No problems noted. Grandmother No problems noted. Social History household members: none Smoking Status: Current every day smoker Tobacco: How many years used: 22 quit status: not considering quitting second hand exposure: No alcohol intake: current substance use type: does not use Assessment & Plan Assessment and plan (1) Hyponatremia: Problem details: Appears euvolemic; history and random urine Na+ of 5 consistent with water intoxication Status: Acute Plan Acute hyponatremia. Patient on normal saline fluid restriction. Patient's sodium has improved. He has chronic hyponatremia. His sodium today is 125 near his baseline. Transferred from ICU status with a sodium 116 to now 125. Monitor in's an out's and fluid restriction of free water. Weakness history of falls 3 previous emergency room visits for falls. Has had home health and home PT despite his he is not doing well at home. Think he would benefit from a safe discharge plan with long-term at possible. Will see what is available which may be a challenge. Alcohol use disorder. Not currently going through acute withdrawal. No DTs. Little bit at times some low-grade confusion easily redirected. One dose her lorazepam last night for possible sleep which did not help much. Hypertension blood pressure is controlled continue with oral medications monitor blood pressure. Disposition and plan discussed with production planner scheduler today. Work on potential discharge to long-term facility for physical therapy for strengthening. Currently there is a bed crisis and this may be a difficult ask. Time Spent With Patient Critical Care time: I spent a total of [] minutes of critical care time on this patient's care today; this time is exclusive of procedural time.
--- NOTE | 2022-03-17 09:04 | DIET.CONS ---
Dietary Consultation Note Admission Date: 03/15/2022 13:59 Assessment: 66y M admitted for frequent falls and hyponatremia, referred to nutrition for risk of malnutrition. Pt c alcohol use disorder, ran out of etoh over a week ago because unable to get to a store to purchase more. Pt reports excessive consumption plain water since then resulting in Na of 116. Pt reports frequent vomiting over the past 2w, often immediately following ingestion of food. Pt has hx GERD and esophageal thickening. Pt has been eating poorly x2w, however, weight hx shows only minor weight loss, pt at or above UBW over the past few years. Pt reports no food insecurity, has [employer] delivery daily, enjoys meals. Pt also gets EBT benefits, so states his freezer is full of healthy foods. Pt has desire to eat, his concern is regarding frequent vomiting. Pt high risk of gastritis secondary to etoh use and evidence of vomiting, also functional reasons for vomiting secondary to hx esophageal thickening. Pt may benefit form AUTOMATIC SILK SCREEN PRINTER evaluation. Ht: 177.8 cm Wt: 70.2 kg BMI: 22.2 Last BM: 03/17/22 (03/17/22 06:00) MNA: 11 Jorge Score: 19 Diet: 03/16/22 Breakfast Heart Healthy Diet Diet Modifications: Sodium Level: 2 gm Sodium Nutrition Percent Meal Consumed 75% 03/16/22 13:47 Percent Meal Consumed 75% 03/16/22 09:51 Labs: RBC 3.99 X10^6/uL (4.5-5.9) L 03/15/22 12:15 Hgb 14.3 g/dL (13.5-17.5) 03/15/22 12:15 Hct 38.6 % (41-53) L 03/15/22 12:15 Creatinine 0.56 mg/dL (0.66-1.25) L 03/17/22 04:55 Nutrition Diagnosis: Difficulty eating r/t frequent vomiting aeb pt reports vomiting after eating x2w. Interventions: 1. Recc pt f/u c AUTOMATIC SILK SCREEN PRINTER for monitoring of esophageal thickening if vomiting persists and recommended by PCP. 2. Recc pt is compliant c PPI therapy secondary to hx GERD. 3. Recc pt remains sober. 4. Recc small frequent meals. Electronically Signed by: Isidra House 03/17/22 09:04 Clinical Dietitian [address] [address]
--- NOTE | 2022-03-17 10:27 | OT.IP.EVAL ---
Current Diagnoses Hypothyroidism, unspecified (03/15/22) Hypo-osmolality and hyponatremia (03/15/22) Alcohol dependence, uncomplicated (03/15/22) Nicotine dependence, unspecified, uncomplicated (03/15/22) Essential (primary) hypertension (03/15/22) Paroxysmal atrial fibrillation (03/15/22) Past Medical History (Last Reviewed 03/15/22 @ 21:11 by Chuck Grant MD) Alcohol dependence Alcoholism Anoxic brain injury Cardiomyopathy Cataracts, bilateral (2007) Chronic cough (1999) COPD (chronic obstructive pulmonary disease) Dislocated elbow (2000) Dislocated shoulder (2001) Eczema (2017) Elevated liver function tests Essential hypertension Fractures (~1963) GERD (gastroesophageal reflux disease) Hypothyroidism Impaired vision Paroxysmal atrial fibrillation Pulmonary nodule (~07/2019) Surgical History (Last Reviewed 03/15/22 @ 21:11 by Chuck Grant MD) History of cataract removal with insertion of prosthetic lens History of nasal surgery (1963) History of repair of hiatal hernia Hx of hernia repair (1995) Occupational Therapy Inpatient Evaluation/Re-Eval M1 PT/OT-IP Prior Functional Status Start: 03/16/22 14:14 Freq: Status: Active Protocol: Document 03/17/22 09:50 [facility] (Rec: 03/17/22 11:08 [facility] [id number]) Medical Review Prior Functional Status Medical History Reviewed Yes Mobility and Gait Use of 4WW; frequent falls Activities of Daily Living and IADL's Currently no assist with ADLs, reports falling frequently Prior Functional Level (Other details) Pt lives I'ly at [facility] apartments. States he has been declining since Sep 2021. He no longer can do his own shopping, is falling frequently, and reports difficulty with home/self care adls (showering/laundry) Social History Household Members none Living Arrangements Apartment/Condo Number of Stairs To Enter/Railing? elevator to apt Home Environment Standard Height Toilet,Walk in Shower Home Equipment Four Wheel Walker,Grab Bars Near Toilet,Grab Bars In Shower M2 OT-IP Current Condition Start: 03/17/22 10:28 Freq: Status: Active Protocol: Document 03/17/22 09:50 [facility] (Rec: 03/17/22 11:08 [facility] [id number]) Occupational Therapy Current Condition Current Condition Evaluation Date 03/17/22 Treatment Diagnosis Hyponatremia, decreased mobility Diagnosis Onset Date 03/15/22 M3 OT- IP Subjective and Pain Start: 03/17/22 10:28 Freq: Status: Active Protocol: Document 03/17/22 09:50 [facility] (Rec: 03/17/22 11:08 [facility] [id number]) OT- Subjective Occupational Therapy Visit Type Type Initial Evaluation Visit Start Time 09:50 Visit Stop Time 10:27 Total Visit Minutes 37 Occupational Therapy Visit Comments Patient Comments Pt needing initial encouragement and then agreed to get up. Patient/Caregiver Goals To be able to care for herself . OT Pain Assessment Pain When Pain Assessed At Rest Pain Present Pain Present Denied Pain M4 OT- IP ADL's Start: 03/17/22 10:28 Freq: Status: Active Protocol: Document 03/17/22 09:50 [facility] (Rec: 03/17/22 11:08 [facility] [id number]) OT [id number] Comments OT Self-Feeding Comments NOt at meal time. OT ADL-Grooming General Evaluation Grooming Ability Standby Assistance Areas Needing Assistance Retrieving/Set-up of Grooming Items Comments OT Grooming Comments while standing with FWW OT ADL-Oral Care General Eval Oral Care Ability Standby Assistance Comments Oral Care Comments While standing with FWW. OT ADL-Dressing General Eval Lower Body Dressing Ability Moderate Assistance Comments OT Dressing Comments Assist to stephen brief over pt's feet and assist to help get up over his hips while standing. OT ADL-Toileting General Evaluation Toileting Ability Moderate Assistance Areas Needing Assistance Manage Clothing,Perform Perineal Hygiene Comments OT Toileting Comments Assist for completeness for hygiene and and brief management needs. OT ADL-Bathing Comments OT Bathing Comments Not performed. M5 OT- IP IADL's Start: 03/17/22 10:28 Freq: Status: Active Protocol: Document 03/17/22 09:50 [facility] (Rec: 03/17/22 11:08 [facility] [id number]) OT-Instrumental Activities of Daily Living Deficits IADL Deficits Identified Deficits Home Safety Awareness Awareness of Need for Assistance at Home Decreased Awareness Home Safety Comments Pt very unsteady on his feet and decreased safety awareness and not safe to go home at this time. Money Management Money Management Comments Pt admits has not been able to pay his bills. Meal Preparation Meal Preparation Comments Pt states gets Meals on Wheel and has not been able to keep his food down. M6 OT- IP Functional Cognition Start: 03/17/22 10:28 Freq: Status: Active Protocol: Document 03/17/22 09:50 [facility] (Rec: 03/17/22 11:08 [facility] [id number]) Cognitive Factors Limiting Selfcare Function Cognitive Ability Level of Alertness Alert Patient Orientation Name,Place,Situation Attention Span Ability Capable of Focused Attention, Capable of Sustained Attention Ability to Follow Commands Able to Follow One Step Commands with Increased Time, Able to Follow One Step Commands with Repetition Memory Description Short Term Impaired Safety Awareness Underestimates Need for Assistance Problem Solving Ability Needs Assist to Identify Solutions Cognitive Comments Cognitive Assessment Comments Pt able to follow simple and concrete commands. Pt unaware that his was wet. Pt needing safety awareness for FWW use. OT- Vision and Hearing OT- Hearing Assessment OT- Hearing Assessment WFL OT- Vision Assessment Visual Acuity Glasses For Reading Visual Attentiveness WF M7 OT- IP Mobility and Balance Start: 03/17/22 10:28 Freq: Status: Active Protocol: Document 03/17/22 09:50 [facility] (Rec: 03/17/22 11:08 [facility] [id number]) OT- Bed Mobility Assessment Supine to Sit Supine to Sit Assist Standby Assistance Sit to Supine Sit to Supine Assist Standby Assistance OT-Transfer Assessment Sit to and From Stand Sit to and from Stand Contact Guard Assistance Transfers Transfer Ability Contact Guard Assistance, Minimal Assistance Technique Transfer Destination Bed,Chair,Toilet Transfer Technique Stand Step Pivot Devices Transfer Assistive Devices Gait Belt,Front Wheeled Walker Comments Mobility Comments Pt CGA to stand and at times needing CGA/EFRAÍN for balance as very unsteady on his feet. OT- Balance Assessment Sitting Balance and Reactions Static Sitting Balance Ability Good Dynamic Sitting Balance Ability Good Standing Balance and Reactions Static Standing Balance Ability Fair Dynamic Standing Balance Ability Poor Comments Other Balance Tests/Deviations/Treatment Pt very unsteady on his feet : and is a high fall risk. M8 OT- IP Objective Assessments Start: 03/17/22 10:28 Freq: Status: Active Protocol: Document 03/17/22 09:50 [facility] (Rec: 03/17/22 11:08 [facility] [id number]) OT Gross Range of Motion Upper Extremity Range of Motion Assessment Left Impaired ROM Impairments LUE 0-100 OT Strength Upper Extremity Strength Assessment Left Impaired Shoulder 3- Elbow 3+ Forearm 3+ Wrist 3+ Hand 3+ Comments Strength Comments Decreased strength for LUE OT- Coordination Assessment Upper Extremity Finger to Nose Test Left UE Impaired Finger Tapping Test Left UE Impaired OT-Muscle Tone Assessment Muscle Tone WNL No Comments Muscle Tone Comments Feels like cogwheel rigidity for LUE. OT Sensation Assessment Comments Summary Comments Intact for light touch. M9 OT- IP Assessment and Plan Start: 03/17/22 10:28 Freq: Status: Active Protocol: Document 03/17/22 09:50 [facility] (Rec: 03/17/22 11:08 [facility] [id number]) OT Summary Assessment and Plan Potential Rehabilitation Potential Good Analytic Complexity at Evaluation Moderate Summary OT Impairments Pain,Strength,Balance, Functional Cognition, Functional Mobility,Grooming, Dressing,Toileting,Bathing, Toilet Transfers,Shower Transfers,Activity Tolerance Progress Towards Goals Slow Progress due to Medical Issues,Slow Progress due to Activity Tolerance,Slow Progress due to Cognition Assessment Summary Pt MOD complexity and main barrier is decreased balance, safety awareness, weakness on left UE, and noted per pt having word finding difficulty and saliva control. Suggested to nursing for pt to have TRAIL CONSTRUCTION WORKER orders. Pt would greatly benefit from skilled rehab prior to going home. Goals Grooming Goal Independent Dressing Goal Independent Toileting Goal Independent Bathing Goal Independent Toilet Transfer Goal Independent Shower Transfer Goal Independent Days to Meet Goals 15 Frequency of Treatment Frequency Of Treatment Once a Day Treatment Plan OT Treatment Plan ADL Training,Functional Cognition Training,Functional Mobility,Patient/Family Education,Discharge Planning Other Treatment Recommendations and Next shower Treatment Focus Discharge Recommendations OT Discharge Recommendations SNF Rehab Transportation Needs at Discharge Wheelchair/Cabulance
--- NOTE | 2022-03-17 12:24 | PT-IP ANOTE ---
Attempted to see pt, however pt refused out of bed mobility as well as therapeutic exercise. Will check back tomorrow.
--- NOTE | 2022-03-17 14:11 | DI.RAD.S_ITS ---
PROCEDURE: XR CHEST 1V INDICATIONS: Cough TECHNIQUE: One view of the chest was acquired. COMPARISON: [facility], CR, XR CHEST 1V, 03/08/2022, 16:24. FINDINGS: Surgical changes and devices: None. Lungs and pleura: Lungs are clear. No pleural effusions or pneumothorax. Mediastinum: Mediastinal contours appear normal. Heart size is normal. Bones and chest wall: No suspicious bony lesions. Overlying soft tissues appear unremarkable. IMPRESSION: No acute cardiopulmonary process demonstrated radiographically. Dictated by: Ron Avilez M.D. on 03/17/2022 at 14:56 Approved by: Ron Avilez M.D. on 03/17/2022 at 14:56
[2022-03-17] MEDS: NICOTINE 14 PATCH 14 MG TOP (18:30)
[2022-03-17] MEDS: ALBUTEROL/IPRATROPIUM 3 ML AMPUL INH (20:31)
[2022-03-18] VITALS (10 sets, daily range): BP systolic 107–173; BP diastolic 72–99; PULSE 62–81; RESP 15–20; TEMP 36.2–36.4; O2SAT 95–99
[2022-03-18] MEDS: BENZONATATE 100 MG CAPSULE PO ×2 (01:31→20:07)
[2022-03-18] MEDS: LEVOTHYROXINE 75 MCG TABLET PO (05:48)
[2022-03-18] MEDS: PANTOPRAZOLE DR 20 MG TABLET PO (05:48)
--- NOTE | 2022-03-18 07:21 | PM.PN.1 ---
Subjective Subjective Date Patient Seen: 03/18/22 Time Patient Seen: 07:21 Interval history: Patient doing well today stable overnight no new concerns eating well. Ambulating but certainly unsteady on his feet. Definite improvement since beginning of hospitalization. Patient still quite unstable hand would benefit from residential facility for a few days to a week or 2 before going home. Working with discharge planning on this today. Exam Vital Signs (past 8 hours): - 03/18/22 00:00 03/18/22 04:00 Temperature 97.3 F L 97.5 F L Pulse Rate 62 66 Respiratory Rate 17 17 Blood Pressure 173/99 H 153/95 H Pulse Oximetry 99 97 Oxygen Flow Rate 0 0 Oxygen Delivery Method Room Air Oxygen Flow Rate 0 Narrative Exam Narrative: Gen.: Alert oriented to place and person not time HEENT: NCAT PERRLA tympanic membranes are clear nares are patent oral mucosa is moist no tonsillar hypertrophy neck is supple without lymphadenopathy no thyroid enlargement. Cardio: S1-S2 regular rate and rhythm no murmurs appreciated. Respiratory: Lungs are clear to auscultation no wheezes or crackles normal respiratory effort. Abdomen: Soft nontender no rebound or guarding no liver spleen enlargement no appreciable hernias Extremities: Full range of motion no appreciable weakness no cyanosis or edema. Objective Labs Result Diagrams: 03/15/22 12:15 03/17/22 04:55 [facility] Medical History Alcohol dependence Alcoholism Anoxic brain injury Cardiomyopathy Cataracts, bilateral (2007) Chronic cough (1999) COPD (chronic obstructive pulmonary disease) Dislocated elbow (2000) Dislocated shoulder (2001) Eczema (2016) Elevated liver function tests Essential hypertension Fractures (~1963) GERD (gastroesophageal reflux disease) Hypothyroidism Impaired vision Paroxysmal atrial fibrillation Pulmonary nodule (~07/2019) Surgical History History of cataract removal with insertion of prosthetic lens History of nasal surgery (1963) History of repair of hiatal hernia Hx of hernia repair (1995) Family History Father History of arteriosclerotic cardiovascular disease History of emphysema Mother Cancer Grandfather No problems noted. Grandmother Stroke Grandfather No problems noted. Grandmother No problems noted. Social History household members: none Smoking Status: Current every day smoker Tobacco: How many years used: 22 quit status: not considering quitting second hand exposure: No alcohol intake: current substance use type: does not use Assessment & Plan Assessment and plan (1) Hyponatremia: Problem details: Appears euvolemic; history and random urine Na+ of 5 consistent with water intoxication Status: Acute Plan Acute hyponatremia.? Normal saline has been stopped. Fluid restrictions back to normal. Urination has decreased last sodium was in a normal range have not recheck yet. Patient appears to be back to baseline. Work on discharge planning today. Would benefit from residential facility. Weakness history of falls 3 previous emergency room visits for falls. Patient has home health home PT not working well. Continue with PT OT here. Would benefit from skilled Alcohol use disorder.? Not currently going through acute withdrawal.? No acute withdrawal symptoms here in hospitalization today. Patient is stable. Not drinking says he quit a number of days before hospitalization. Hypertension blood pressure is controlled appropriate home medication dose today. ? Disposition and plan discussed with telecommunications network planner today.? Continue working for residential facility if available. If not will have to go home with home health and home PT which he already has. Readmission is likely if discharged home. Peer to peer review with insurance company this afternoon. Provided medical case for unsafe discharge. An [employer] company accepted the patient to go to [facility]. [facility] discharged tomorrow. Time Spent With Patient Critical Care time: I spent a total of [] minutes of critical care time on this patient's care today; this time is exclusive of procedural time.
[2022-03-18] MEDS: ALBUTEROL/IPRATROPIUM 3 ML AMPUL INH ×2 (09:29→20:27)
[2022-03-18] MEDS: LOSARTAN 25 MG TABLET PO (09:52)
[2022-03-18] MEDS: THIAMINE 100 MG TABLET PO (09:52)
[2022-03-18] MEDS: MULTIVITAMIN 1 TABLET 1 TAB PO (09:52)
[2022-03-18] MEDS: FOLIC ACID 1 MG TABLET PO (09:52)
[2022-03-18] MEDS: ENOXAPARIN 40 MG/0.4 ML SYRINGE SUBCUT (09:53)
[2022-03-18] MEDS: NICOTINE 14 PATCH 14 MG TOP (09:53)
[2022-03-18] MEDS: carvediloL 3.125 MG TABLET PO ×2 (09:53→20:07)
--- NOTE | 2022-03-18 10:30 | PC.RNWOUND ---
Patient ambulating back to bed after shower, assist of MARKETING COMMUNICATIONS MANAGER, FWW, gait belt on. There is a 0.6 x 0.8 x 0.05 cm open area to the coccygeal area, consistent with a Stage 2 pressure injury. This is a small, partial-thickness wound with a red-pink wound bed, no drainage noted at this time, edges are well-defined and intact with maceration noted. This wound is directly over the tip of the coccyx bone. A sacral dressing is placed for protection, patient is positioned in bed with head of bed below 30 degrees to help prevent shear forces, tilted to left side with 30 degree tilt to offload this area. Right lateral hip area has two open partial-thickness wounds bordering greater trochanter, consistent with stage 2 pressure injuries. The proximal wound measures 3.6 x 2 x 0.05 cm and the distal wound measures 2 x 1.8 x 0.05cm. These are both partial-thickness wounds which appear to be epithelializing, no drainage noted, periwound is erythema. These wound appear to be healing at this time due to epithelialization (see photo). Patient has scattered abrasions to the right knee and lateral lower leg which are covered with dried crust. There are numerous scattered abrasions to bilateral arms, legs, knees, and toes, all with 100% dried crust/scab from previous falls at home.
[2022-03-18] MEDS: COVID-19 VACC #3, MRNA(MOD) 50 MCG/0.25 ML VIAL IM (12:53)
--- NOTE | 2022-03-18 15:01 | PT.IPTN ---
Current Diagnoses Hypothyroidism, unspecified (03/15/22) Hypo-osmolality and hyponatremia (03/15/22) Alcohol dependence, uncomplicated (03/15/22) Nicotine dependence, unspecified, uncomplicated (03/15/22) Essential (primary) hypertension (03/15/22) Paroxysmal atrial fibrillation (03/15/22) Physical Therapy Treatment Note M2 PT-IP Current Condition Start: 03/16/22 14:14 Freq: Status: Active Protocol: Document 03/16/22 14:14 BC (Rec: 03/16/22 14:27 BC [id number]) Physical Therapy Current Condition Current Condition Evaluation Date 03/16/22 Treatment Diagnosis Unsteady gait Onset Date 03/15/22 M3 PT-IP Subjective Start: 03/16/22 14:14 Freq: Status: Active Protocol: Document 03/18/22 14:45 KS (Rec: 03/18/22 16:08 KS [id number]) Subjective Physical Therapy Visit Type Type Treatment Note Visit Start Time 14:45 Visit Stop Time 15:01 Total Visit Minutes 16 Number of EQUITY MANAGER Visits 1 Physical Therapy Visit Comments Patient Comments Pt agreeable to ambulation. M4 PT-IP Mobility and Gait Start: 03/16/22 14:14 Freq: Status: Active Protocol: Document 03/18/22 14:45 KS (Rec: 03/18/22 16:08 KS [id number]) PT-Bed Mobility Assessment Rolling Level of Assist Independent Supine to Sit Supine to Sit Contact Guard Assistance Sit to Supine Sit to Supine Minimal Assistance Scooting Scooting to Edge of Bed Contact Guard Assistance PT-Transfer Assessment Sit to and From Stand Sit to and from Stand Minimal Assistance Equipment Transfer Assistive Device Gait Belt,Front Wheeled Walker Transfers Transfer Destination Bed Transfer Technique Pt ambulated w/ FWW Transfer Ability Level of Assist Contact Guard Assistance Comments Mobility Comments Pt in bed upon arrival and seemingly confused trying to look for keys and wallet which has been locked away and pt told multiple times. After redirecting pt, he agreed to ambulate. Pt impulsive and w/ poor safety awareness, needing max cues for mobility. CGA for scooting EOB and sit<> stand w/ FWW, had 1 post LOB upo standing requiring Min A. Pt then ambulated ~60 ft in room w/ FWW CGA and cues for FWW management. Pt had no LOB but poor safety awareness and decreased stride and foot clearance increasing risk of falls. Pt returned to bed and required Min A. Gait Assessment Gait Gait Assistance Required: Contact Guard Assist Distance (Feet) 60 Assistive Devices Assistive Device Gait Belt,Front Wheeled Walker Gait Deviations General Gait Pattern Ataxic,Decreased Stride Length ,Decreased Feet Clearance Factors Limiting Gait Function Factors Limiting Gait Function Decreased Activity Tolerance, Decreased Strength, Incoordination,Poor Balance Comments Gait Comments Pt LLE remains rigid during ambulation and pt circumducts due to lack of hip and knee flexion. Poor safety awareness , decreased stride and foot clearance, and ataxic gait all make pt high risk for falls although had no LOB this PM. PT-Balance Assessment Sitting Balance and Reactions Static Sitting Balance Ability Normal Dynamic Sitting Balance Ability Good Standing Balance and Reactions Static Standing Balance Ability Fair Dynamic Standing Balance Ability Fair Device Used FWW M5 PT-IP Objective Assessments Start: 03/16/22 14:14 Freq: Status: Active Protocol: Document 03/16/22 14:14 BC (Rec: 03/16/22 14:27 BC [id number]) Orientation Orientation/Cognition Level of Alertness Alert Orientation Name,Year,Place,Situation Gross Range of Motion Upper Extremity ROM Assessment Left Impaired Impairments Reduced L shoulder ROM Lower Extremity ROM Assessment Within Functional Limits Strength Upper Extremity Strength Assessment Bilaterally Impaired Lower Extremity Strength Assessment Bilaterally Impaired Comments Strength Comments Strength screening reveals grossly 3+ to 4-/5 throughout all extremities Coordination Assessment Gross Coordination Gross Coordination Impaired Assessment Foot Tapping Test Moderate Impairment Heel on Barney Test Moderate Impairment Coordination Comments LLE coordination appears impaired; ataxic in nature Muscle Tone Muscle Tone WNL Yes M6 PT-IP Treatment Start: 03/16/22 14:14 Freq: Status: Active Protocol: Document 03/18/22 16:08 KS (Rec: 03/18/22 16:08 MO [id number]) Physical Therapy Treatment Education Education Provided Safety M7 PT-IP Assessment and Plan Start: 03/16/22 14:14 Freq: Status: Active Protocol: Document 03/18/22 14:45 KS (Rec: 03/18/22 16:08 KS [id number]) PT Summary Assessment and Plan Potential Rehabilitation Potential Good Status of Condition at Evaluation Stable Summary Impairments Strength,Balance,Coordination, Bed Mobility,Transfers,Gait, Activity Tolerance Assessment Summary Pt limited by poor safety awareness, poor balance, weakness, and confusion. 1x posterior LOB requiring Min A upon sit<>stand. Able to ambulate ~60 ft w/ FWW CGA but required cues to correctly use FWW and avoid objects. Recommend SNF due to pt being high fall risk for daily therapy for improved balance, coordination and mobility independence. Goals Bed Mobility Goal Independent Transfer Goal Independent Gait Goal Independent,Four Wheel Walker Gait Distance 500 Other Goals Pt will maintain balance while reaching/lifting objects from floor to walker height with SBA for balance during home care ADLs. Days to Meet Goals 3 Frequency of Treatment Frequency Of Treatment Once a Day Treatment Plan Physical Therapy Treatment Plan Bed Mobility Training,Transfer Training,Gait Training, Therapeutic Exercise,Balance Retraining,Discharge Planning, Neuromuscular Re-ed, Coordination Retraining Recommendations To Nursing Amount of Assist Needed 1 Person Assist Discharge Recommendations PT Discharge Recommendations SNF Rehab Transportation Needs at Discharge Wheelchair/Cabulance
--- NOTE | 2022-03-18 15:12 | OT.IPNOTE ---
Nursing aid assisting pt when OT came to see pt, to check on the pt tomorrow.
[2022-03-18] MEDS: ACETAMINOPHEN 325 MG TABLET 650 MG PO (16:01)
[2022-03-18 17:40] LABS: COVID19 -Nasal RAPID Negative (Negative)
--- NOTE | 2022-03-18 19:59 | CM.MNRNOTE ---
Pt is pleasant today, and although confused, is easily redirected with sitter. He can be impulsive getting up without calling for assistance. VSS, afebrile on RA. Per noc shift patient was awake all through the night with no more than a brief nap of sleep. Patient remained awake all throughout the day and reports he did not sleep well. notified and received order for one time HS 25 mg seroquel this evening. Endorsed to oncoming shift. Plan is for patient to d/c to [facility] tomorrow knot picker cloth at 1130. COVID booster given and card put in his backpack, copy in chart. COVID swab completed as well.
[2022-03-18] MEDS: QUETIAPINE 25 MG TABLET PO (20:07)
--- NOTE | 2022-03-19 06:50 | PC.NURSE ---
Patient was finally able to sleep after administration of seroquel. Still impulsive and confused throughout shift, but able to rest between episodes.
[2022-03-19 08:00] VITALS: BP 137/85; PULSE 66; RESP 12; TEMP 35.9; O2SAT 97
[2022-03-19 08:35] LABS: BUN Creatinine Ratio 15.1 (6-22); Blood Urea Nitrogen 8 mg/dL (9-20); Carbon Dioxide 28 mmol/L (22-32); Chloride 95 mmol/L (98-107); Estimated Glomerular Filt Rate > 60 mL/min (>60); Glucose 107 mg/dL (80-110); HEMOLYSIS < 15 (0-50); Potassium 3.3 mmol/L (3.4-5.1); Sodium 128 mmol/L (137-145)
--- NOTE | 2022-03-19 08:42 | PM.DS.1 ---
History of Present Illness History of Present Illness Date Patient Seen: 03/19/22 Time Patient Seen: 07:50 Chief complaint: n/v Weakness x1 week Narrative: 66-year-old male admitted from the emergency department because of hyponatremia Patient with chronic long-term alcohol use disorder who has been having increased numbers of falls at home.? Increased weakness etcetera.? This is patient's third visit to the ER over the last 3 weeks or so.? Patient reports having stopped the use of alcohol and indeed his last ethanol level with his last ER visit last week was 0.? Patient reports drinking lots of water to compensate for the lack of alcohol.? The reason he is not had any alcohol is because he ran out and has no one to bring him anymore.? He reports his last drink was about 7 days ago. He has been seen by me in the outpatient clinic and set up with home health services but patient apparently is failing at home. Patient does not have any family or assistance close by Patient was transferred to the emergency department via EMS after having increased weakness and calling EMS.? He was found to have a sodium of 116 down from 122 in seen in the ER last week.? No other notable findings.? Patient's bilirubin remains somewhat elevated however he is not having any abdominal symptoms Discharge Providers Provider Date of admission: 03/15/22 13:59 Discharge Date: 03/19/22 Primary care physician: Jose Wyman MD Consults: 03/15/22 12:33 Consult to MANAGER MECHANICAL MAINTENANCE - Process Safety Specialist Stat Comment: requesting home health 03/15/22 16:30 Consult to Discharge Planning Routine Comment: will need placement Consult to Physical Therapy Evaluate & Treat Comment: Physician Instructions: Evaluate and Treat 03/15/22 17:26 Consult to Dietitian, Adult Routine Comment: Reason For Exam: admit Consult to Respiratory Therapy Evaluate & Treat Comment: Physician Instructions: Evaluate and treat Consult to Process Safety Specialist Routine Comment: 03/16/22 15:14 Consult to Occupational Therapy Evaluate & Treat Comment: Physician Instructions: Evaluate and treat 03/17/22 16:01 Consult to Inpatient Wound Care Nurse Routine Comment: Reason for consultation: frequently moist, skin tears on buttocks/sacrum Discharge provider: Portia Metcalf MD Summary Hospital Course Discharge Diagnosis: Acute hyponatremia Weakness Alcohol use disorder Hypertension Hospital Course: The pt presented with weakness, found to have severe acute hyponatremia. This was thought to be due to his water ingestion in replacement of alcohol recently. He was treated initially with IVF. His sodium improved relatively rapidly, and IVF were stopped. His sodium remains low at discharge, but is returning to his usual baseline with water restriction. The pts BP was also elevated at admission, but improved with initiation of his normal home medications. The pt was evaluated by PT in the hospital. Discharge to SNF was determined to be the safest option for the pt, for ongoing strengthening. Exam Vital Signs (past 8 hours): - 03/19/22 08:00 Temperature 96.7 F L Pulse Rate 66 Respiratory Rate 12 Blood Pressure 137/85 Pulse Oximetry 97 Oxygen Flow Rate 0 Oxygen Delivery Method Room Air Oxygen Flow Rate 0 Narrative Exam Narrative: Gen: NAD, sitting comfortably in bed CV: RRR, no murmurs Resp: clear to auscultation bilaterally Abd: soft, nontender, nondistended Ext: no edema Objective Labs Result Diagrams: 03/15/22 12:15 03/19/22 08:15 Labs: Laboratory Results - last 24 hr 03/18/22 03/19/22 15:30 08:15 Sodium 128 L Potassium 3.3 L Chloride 95 L Carbon Dioxide 28 BUN 8 L Creatinine 0.53 L Estimated GFR > 60 BUN/Creatinine Ratio 15.1 Glucose 107 Calcium 8.0 L SARS-CoV-2 (PCR) Negative [facility] Medical History Alcohol dependence Alcoholism Anoxic brain injury Cardiomyopathy Cataracts, bilateral (2007) Chronic cough (1999) COPD (chronic obstructive pulmonary disease) Dislocated elbow (2000) Dislocated shoulder (2001) Eczema (2016) Elevated liver function tests Essential hypertension Fractures (~1963) GERD (gastroesophageal reflux disease) Hypothyroidism Impaired vision Paroxysmal atrial fibrillation Pulmonary nodule (~07/2019) Surgical History History of cataract removal with insertion of prosthetic lens History of nasal surgery (1963) History of repair of hiatal hernia Hx of hernia repair (1995) Family History Father History of arteriosclerotic cardiovascular disease History of emphysema Mother Cancer Grandfather No problems noted. Grandmother Stroke Grandfather No problems noted. Grandmother No problems noted. Social History household members: none Smoking Status: Current every day smoker Tobacco: How many years used: 22 quit status: not considering quitting second hand exposure: No alcohol intake: current substance use type: does not use Discharge Plan Discharge Plan Patient Disposition: SNF Transfer to: [facility] Discharge orders & Medications Prescriptions: New folic acid 1 mg Tablet 1 mg PO DAILY Qty: 30 0RF benzonatate 100 mg Capsule 100 mg PO TID PRN (Reason: Cough) Qty: 30 0RF multivitamin with folic acid [Tab-A-Keren] 400 mcg Tablet 1 tab PO DAILY Qty: 30 0RF nicotine 14 mg/24 hr Patch 24 Hour 14 mg topical DAILY Qty: 28 0RF thiamine mononitrate (vit B1) 100 mg Tablet 100 mg PO DAILY Qty: 30 0RF quetiapine [Seroquel] 25 mg tablet 25 mg PO BEDTIME PRN (Reason: agitation) Qty: 30 0RF Continued losartan 25 mg tablet 25 mg PO DAILY Qty: 90 3RF omeprazole 20 mg capsule,delayed release(DR/EC) 20 mg PO DAILY Qty: 30 6RF levothyroxine [Synthroid] 75 mcg tablet 75 mcg PO QDAY Qty: 90 3RF carvedilol 3.125 mg tablet 3.125 mg PO BID Qty: 180 3RF Rx Instructions: must administer with a meal/food Follow up/Referrals: Jose Wyman MD [Primary Care Provider] - Discharge Health Status Precautions: [place] Diet/Activity/Treatments Diet: Diet as Tolerated and Regular Liquid consistency: Normal/Thin Food texture: Regular [facility] Rehab type: Physical therapy and Occupational therapy Discharge Data Primary Care Provider: Jose Wyman
[2022-03-19 08:54] VITALS: BP 137/85; PULSE 66
[2022-03-19] MEDS: carvediloL 3.125 MG TABLET PO (08:54)
[2022-03-19 08:55] VITALS: BP 137/85; PULSE 66
[2022-03-19] MEDS: THIAMINE 100 MG TABLET PO (08:55)
[2022-03-19] MEDS: MULTIVITAMIN 1 TABLET 1 TAB PO (08:55)
[2022-03-19] MEDS: NICOTINE 14 PATCH 14 MG TOP (08:55)
[2022-03-19] MEDS: LOSARTAN 25 MG TABLET PO (08:55)
[2022-03-19] MEDS: FOLIC ACID 1 MG TABLET PO (08:55)
[2022-03-19] MEDS: ENOXAPARIN 40 MG/0.4 ML SYRINGE SUBCUT (08:55)
[2022-03-19] MEDS: ONDANSETRON 4 MG/2 ML INJ IV (08:57)
[2022-03-19] MEDS: POTASSIUM CHLORIDE 20 MEQ TAB PO (09:05)
[2022-03-19 09:35] VITALS: O2SAT 99
[2022-03-19] MEDS: ALBUTEROL/IPRATROPIUM 3 ML AMPUL INH (09:35)
--- NOTE | 2022-03-19 11:54 | PC.NURSE ---
Pt alert Ox2, forgetful, pleasant. Forgets to call up on getting up, but easily redirectable. VSS,afebrile on RA. Night RN stated patient slept throughout the night after the Seroquel was administered where as he hadn't slept well (for 5 mins) the prior night.He is observed to be coughing up clear plegm this a.m. continuously. Pt with chronic cough as he is a smoker, however noted that he coughs continuously this a.m. He remains 96-97% O2 on RA, RR <20, and he does not appear to be in respiratory distress. MD notified of patient's cough, no new orders currently. Pt is cleared by MD to discharge to [facility] today and he acknowledges in agreement and understanding of going to the SNF. Report called to Admitting at [facility], and facility transportee arrived at approximately 1140. Pt is escorted with all of his belongings including wallet, cigarettes and back pack.
--- NOTE | 2022-03-19 11:57 | PT-IP ANOTE ---
Attempted to see pt at 11:51, pt had already D/C.
--- NOTE | 2022-03-19 15:19 | CM.DPNOTE ---
DC Note Worked on coordination of DCP yesterday and today; MD and therapy team recommending SNF and [facility] agreed to admit as long as patient received a COVID vax booster and auth was in place from [facility] Dr Durham kindly agreed to complete a peer to peer yesterday w/ [facility] and patient was inevitably approved for SNF stay. Dr Durham gave verbal order for the booster and pharmacy kindly coordinated securing patient's booster, administered by JUNE Siegel Reviewed plan w/patient yesterday and today and he remained agreeable Plan: DC today to [facility] via w/c ijeoma, updated patient's brother Nicko, faxed all completed and signed DC ppk and PASRR to JUNE Merchant called report HH agency updated re dispo JW
== END 2022-03-19 11:50 | DRG 641 ==
LOC: ED 13:51 → AC 14:00 → ICU 14:03 → AC 03-17 18:28
PROVIDERS: Emergency Medicine; Family Medicine; Admitting Provider Internal Medicine; Emergency Provider Emergency Medicine; PCP Internal Medicine; Referring Provider Emergency Medicine; Visit Provider Internal Medicine
DX: E87.1 Hypo-osmolality and hyponatremia (principal); I42.9 Cardiomyopathy, unspecified; E87.79 Other fluid overload; R53.1 Weakness; F10.20 Alcohol dependence, uncomplicated; I10 Essential (primary) hypertension; F17.210 Nicotine dependence, cigarettes, uncomplicated; E03.8 Other specified hypothyroidism; Z91.81 History of falling; Z20.822 Contact with and (suspected) exposure to COVID-19
CPT/HCPCS: 0013A; 36415; 70450; 71045; 76705; 80048; 80053; 80320; 81003; 83690; 84145; 84295; 84300; 84443; 85025; 87040; 87635; 87797; 91301; 93005; 93010; 94640; 96360; 97162; 97166; 97530; 99223; 99232; 99233; 99238; 99285; C9803; J1650; J2405

== ENCOUNTER → 2022-04-15 11:40 | Outpatient (CLI) | payer MEDICARE, MEDICAID, SELFPAY ==
[2020-02-23 11:45] VITALS: PULSE 67; RESP 20; O2SAT 100
[2022-03-15 14:18] VITALS: BMI 22.2
[2022-04-15 14:29] LABS: Add Manual Diff / Slide Review NO; Basophils Absolute Auto 100 /uL (0-100); Basophils Percent Auto 1.1 % (0-2); Eosinophils Absolute Auto 100 /uL (0-450); Eosinophils Percent Auto 1.1 % (2-4); Hematocrit 36.5 % (41-53); Hemoglobin 13.1 g/dL (13.5-17.5); Lymphocytes Absolute Auto 1500 /uL (1100-4500); Lymphocytes Percent Auto 18.1 % (25-40); Mean Corpuscular HGB Conc 35.9 % (30-36); Mean Corpuscular Hemoglobin 34.4 PG (26-34); Monocytes Absolute Auto 700 /uL (0-900); Monocytes Percent Auto 8.6 % (3-14); Neutrophils Absolute Auto 5800 /uL (1500-7000); Neutrophils Percent Auto 71.1 % (50-75); Platelet Count 268 X10^3/uL (150-400); Red Blood Cell Count 3.81 X10^6/uL (4.5-5.9); Red Cell Distribution Width 11.8 % (11.6-14.8); White Blood Cell Count 8.1 X10^3/uL (4.5-11.0)
[2022-04-15 14:55] LABS: Alanine Aminotransferase 14 IU/L (<50); Albumin Globulin Ratio 1.1 (1.0-2.8); Alkaline Phosphatase 128 U/L (38-126); Aspartate Aminotransferase 27 IU/L (17-59); BUN Creatinine Ratio 9.3 (6-22); Bilirubin Total 1.9 mg/dL (0.2-1.3); Blood Urea Nitrogen 5 mg/dL (9-20); Calcium 8.7 mg/dL (8.4-10.2); Carbon Dioxide 26 mmol/L (22-32); Chloride 91 mmol/L (98-107); Estimated Glomerular Filt Rate > 60 mL/min (>60); Globulin 3.5 g/dL (1.7-4.1); Glucose 84 mg/dL (80-110); HEMOLYSIS < 15 (0-50); Potassium 4.4 mmol/L (3.4-5.1); Sodium 127 mmol/L (137-145); Total Protein 7.5 g/dL (6.3-8.2)
== END ==
PROVIDERS: PCP Internal Medicine; Referring Provider Internal Medicine; Visit Provider Internal Medicine
DX: E03.9 Hypothyroidism, unspecified (principal); E87.1 Hypo-osmolality and hyponatremia; I10 Essential (primary) hypertension; I48.0 Paroxysmal atrial fibrillation
CPT/HCPCS: 36415; 80053; 85025

== ENCOUNTER 2022-05-12 15:13 | Emergency (ER) | payer MEDICARE, MEDICAID, SELFPAY ==
[2020-02-23 11:45] VITALS: PULSE 67; RESP 20; O2SAT 100
[2022-03-15 14:18] VITALS: BMI 22.2
[2022-05-12] VITALS (11 sets, daily range): BP systolic 105–143; BP diastolic 58–77; PULSE 77–101; RESP 18–29; TEMP 36.7; O2SAT 96–99; BMI 22.1
--- NOTE | 2022-05-12 15:27 | DI.RAD.S_ITS ---
PROCEDURE: XR RIBS LT MIN 3V W CXR1V INDICATIONS: fall several days ago TECHNIQUE: 3 views of the left ribs were acquired, along with a single view chest. COMPARISON: None. FINDINGS: Surgical changes and devices: None. Bones and chest wall: There is no displaced fracture. Motion artifact obscures bony detail. Lungs and pleura: No hemothorax or pneumothorax. No dense consolidation. Mediastinum: Mediastinal contours appear normal. Heart size is normal. IMPRESSION: Evaluation is limited by motion artifact. There is no displaced fracture. Consider CT if there is high clinical concern. Dictated by: Lee Rahman M.D. on 05/12/2022 at 16:44 Approved by: Lee Rahman M.D. on 05/12/2022 at 16:48
[2022-05-12 16:57] LABS: COVID19 -Nasal RAPID Negative (Negative)
--- NOTE | 2022-05-12 17:37 | PC.NURSE ---
unable to obtain iv access. Dr. Brown aware.
[2022-05-12 17:51] LABS: Add Manual Diff / Slide Review NO; Basophils Absolute Auto 0 /uL (0-100); Basophils Percent Auto 0.6 % (0-2); Eosinophils Absolute Auto 0 /uL (0-450); Eosinophils Percent Auto 0.1 % (2-4); Hematocrit 35.3 % (41-53); Hemoglobin 12.6 g/dL (13.5-17.5); Lymphocytes Absolute Auto 1200 /uL (1100-4500); Lymphocytes Percent Auto 23.3 % (25-40); Mean Corpuscular HGB Conc 35.8 % (30-36); Mean Corpuscular Hemoglobin 34.9 PG (26-34); Mean Corpuscular Volume 97.5 fL (80-100); Monocytes Absolute Auto 600 /uL (0-900); Monocytes Percent Auto 11.4 % (3-14); Neutrophils Absolute Auto 3400 /uL (1500-7000); Neutrophils Percent Auto 64.6 % (50-75); Platelet Count 184 X10^3/uL (150-400); Red Blood Cell Count 3.62 X10^6/uL (4.5-5.9); Red Cell Distribution Width 13.4 % (11.6-14.8); White Blood Cell Count 5.3 X10^3/uL (4.5-11.0)
[2022-05-12 17:55] LABS: Alanine Aminotransferase 19 IU/L (<50); Albumin 3.5 g/dL (3.5-5.0); Alkaline Phosphatase 137 U/L (38-126); Aspartate Aminotransferase 51 IU/L (17-59); BUN Creatinine Ratio 11.1 (6-22); Bilirubin Total 1.5 mg/dL (0.2-1.3); Blood Urea Nitrogen 5 mg/dL (9-20); Calcium 7.7 mg/dL (8.4-10.2); Carbon Dioxide 26 mmol/L (22-32); Chloride 91 mmol/L (98-107); Creatine Kinase 102 U/L (55-170); Estimated Glomerular Filt Rate > 60 mL/min (>60); Globulin 3.6 g/dL (1.7-4.1); Glucose 100 mg/dL (80-110); HEMOLYSIS 17 (0-50); Lipase 123 U/L (23-300); Magnesium 1.8 mg/dL (1.6-2.3); Potassium 3.8 mmol/L (3.4-5.1); Sodium 126 mmol/L (137-145); Total Protein 7.1 g/dL (6.3-8.2)
[2022-05-12 18:05] LABS: Troponin I 0.017 ng/mL (0.01-0.034)
[2022-05-12 18:10] LABS: CKMB % Relative Index 1.7 % (1.5-5.0); Creatine Kinase MB 1.78 ng/mL (<2.37)
--- NOTE | 2022-05-12 18:18 | ED.FALL ---
HPI - Fall General Chief Complaint: Weakness Stated Complaint: Gen weak, falls, left knee pain Time Seen by Provider: 05/12/22 18:18 Source: patient Mode of arrival: Family Vehicle Limitations: no limitations History of Present Illness HPI Narrative: This is a 66-year-old male with history of hypertension, hypothyroidism and alcohol abuse who presents for fall. Patient had recent hospitalization for hyponatremia and discharge 03/19/2022. Patient states he went to a retirement and then has returned home. He states he has been falling frequently, he states he hit his head a couple days ago but fell again today hitting the left side of his chest. He wants to make sure it is not rib fracture. Patient use a walker at home he states that somewhat helpful. He denies any syncope, he denies any loss of consciousness. He denies any shortness of breath. He denies any head or neck or back pain. Patient states he has been stooling without issue, no nausea or vomiting, no urinary issues besides occasional frequency but no dysuria or incomplete emptying. He states he feels generally weak all over. Patient states he is taking medicine for hypertension, hypothyroidism but no aspirin, Plavix or other anticoagulants, denies any prior surgeries. States he is allergic to Cipro and pantoprazole. He smokes 10 cigarettes per day, states he is drinking about 9 alcoholic drinks daily, no illicit. Dr. Wyman is his primary care. Patient does believe that his general medical issues as well as alcohol is probably contributing to his falls. Patient also notes he has some chronic neuropathy in his hands and feet which make it hard for him to walk as well. Related Data Previous Rx's Medication Instructions Recorded omeprazole 20 mg capsule,delayed 20 mg PO DAILY #30 caps 05/25/21 release benzonatate 100 mg capsule 100 mg PO TID PRN Cough #30 caps 03/19/22 folic acid 1 mg tablet 1 mg PO DAILY #30 tabs 03/19/22 multivitamin with folic acid 400 1 tab PO DAILY #30 tabs 03/19/22 mcg tablet (Tab-A-Keren) nicotine 14 mg/24 hr daily 14 mg topical DAILY #28 ea 03/19/22 transdermal patch thiamine mononitrate (vit B1) 100 100 mg PO DAILY #30 tabs 03/19/22 mg tablet carvedilol 3.125 mg tablet 3.125 mg PO BID #180 tabs 04/15/22 levothyroxine 75 mcg tablet 75 mcg PO QDAY #90 tabs 04/15/22 (Synthroid) losartan 100 mg tablet 100 mg PO DAILY #90 tabs 04/15/22 trazodone 50 mg tablet 50 mg PO BEDTIME #90 tabs 04/15/22 Allergies Allergy/AdvReac Type Severity Reaction Status Date / Time ciprofloxacin [From CIPRO] Allergy Severe SWELLING Verified 04/15/22 10:58 IN HANDS, ARMS, LEGS AND FEET pantoprazole AdvReac Intermediate n/v, Verified 04/15/22 10:58 omeprazole okay Review of Systems Review of Systems ROS Unobtainable: All systems reviewed & are unremarkable except as noted in HPI and below Patient History Medical History Alcohol dependence Alcoholism Anoxic brain injury Cardiomyopathy Cataracts, bilateral (2007) Chronic cough (1999) COPD (chronic obstructive pulmonary disease) Dislocated elbow (2000) Dislocated shoulder (2001) Eczema (2016) Elevated liver function tests Essential hypertension Fractures (~1963) GERD (gastroesophageal reflux disease) Hypothyroidism Impaired vision Paroxysmal atrial fibrillation Pulmonary nodule (~07/2019) Surgical History History of cataract removal with insertion of prosthetic lens History of nasal surgery (1963) History of repair of hiatal hernia Hx of hernia repair (1995) Family History Father History of arteriosclerotic cardiovascular disease History of emphysema Mother Cancer Grandfather No problems noted. Grandmother Stroke Grandfather No problems noted. Grandmother No problems noted. Social History household members: none Smoking Status: Current every day smoker Tobacco: How many years used: 22 quit status: not considering quitting second hand exposure: No alcohol intake: current substance use type: does not use Smoking Status: Current every day smoker tobacco type: cigarettes alcohol intake frequency: 3 or more drinks per day Alcohol type: beer and hard liquor Substance Use Type: does not use Exam Narrative Exam Narrative: GEN: Patient appears in mild distress. HEAD: Patient has healing abrasions on his left parietal scalp, no raccoon/Khan sign. NECK: Nontender, painless range of motion, trachea midline Negative for Nexus criteria, there is no midline line tenderness, distracting injury, altered mental status, neuro deficit, positive for recent EtOH. EYES: PERRLA, EOMI ENT: External inspection normal, trachea is midline, TM's are normal no hemotypanum, Nares are clear, no septal hematoma, no dental or oral injury, airway is normal and with normal occlusion, No bony tenderness RESP: Chest is nontender and has symmetric movement, no ecchymosis, breath sounds are normal no crackles, wheezes or rales CVS: Heart sounds are normal, no murmur noted, No JVD. ABG/GI: Nontender, soft, normal bowel sounds, no distention, no organomegaly, pelvic rock is negative NEURO: Oriented AOx3, neuro is grossly intact, sensation and motor is normal all 4 extremities moving, cranial nerves II through XII are intact, GCS is 15 PSYCH: Normal mood and affect SKIN: Intact, warm and dry, no crepitus and without decubitus BACK: No CVA tenderness, no vertebral tenderness, no step-off's, no crepitus EXT: Patient has multiple abrasions on his knees, full range of motion bilateral lower extremities. No bony tenderness. 2+ pulses upper and lower extremities. Patient has sensation intact bilateral upper lower extremities. Initial Vital Signs Initial Vital Signs: Vital Signs Temperature 98.1 F 05/12/22 15:22 Pulse Rate 81 05/12/22 15:22 Respiratory Rate 20 05/12/22 15:22 Blood Pressure 116/67 05/12/22 15:22 Pulse Oximetry 99 05/12/22 15:22 Oxygen Delivery Method 05/12/22 15:22 Scores GCS Onset coma scale eye opening: Spontaneous Onset coma scale verbal response: Orientated Onset coma scale motor response: Obey commands Onset coma scale total score: 15 Nexus Score for C-Spine Focal Neurologic deficit present: No Midline spinal tenderness present: No Altered level of conciousness present: No Intoxication present: Yes Distracting Injury Present: No Nexus Criteria for C-spine: 1 Course Orders Ordered: ED Orders 05/12/22 15:26 EKG-12 Lead Stat 05/12/22 15:27 XR ribs LT min 3V w CXR1V Stat 05/12/22 15:30 COVID19 -Nasal RAPID/Pre-Proc Stat 05/12/22 17:08 Complete Blood Count AUTO DIFF Stat Comprehensive Metabolic Panel Stat Lipase Stat Magnesium Stat Troponin & CK Cardiac Panel Stat 05/12/22 18:19 ETOH [Ethanol (ETOH)] Stat 05/12/22 18:32 CT cervical spine wo con Stat CT head/brain wo con Stat Vital Signs Vital signs: Vital Signs - 8 hr 05/12/22 15:22 05/12/22 16:00 05/12/22 17:00 Temperature 98.1 F Pulse Rate 81 77 87 Respiratory Rate 20 18 24 Blood Pressure 116/67 105/58 L Pulse Oximetry 99 97 97 Oxygen Delivery Method Room Air 05/12/22 17:34 05/12/22 18:00 05/12/22 18:30 Temperature Pulse Rate 101 H 82 88 Respiratory Rate 23 22 24 Blood Pressure Pulse Oximetry 96 97 97 Oxygen Delivery Method 05/12/22 19:00 Temperature Pulse Rate 85 Respiratory Rate 23 Blood Pressure Pulse Oximetry 98 Oxygen Delivery Method MDM - Fall Lab Data Result diagrams: 05/12/22 17:08 05/12/22 17:08 Labs: Lab Results 05/12/22 05/12/22 05/12/22 Range/Units 15:30 17:05 17:08 WBC 5.3 (4.5-11.0) X10^3/uL RBC 3.62 L (4.5-5.9) X10^6/uL Hgb 12.6 L (13.5-17.5) g/dL Hct 35.3 L (41-53) % MCV 97.5 (80-100) fL MCH 34.9 H (26-34) PG MCHC 35.8 (30-36) % RDW 13.4 (11.6-14.8) % Plt Count 184 (150-400) X10^3/uL Neut % (Auto) 64.6 (50-75) % Lymph % (Auto) 23.3 L (25-40) % Wolfe % (Auto) 11.4 (3-14) % Eos % (Auto) 0.1 L (2-4) % Baso % (Auto) 0.6 (0-2) % Neut # (Auto) 3400 (5073-9886) /uL Lymph # (Auto) 1200 (8741-2479) /uL Wolfe # (Auto) 600 (0-900) /uL Eos # (Auto) 0 (0-450) /uL Baso # (Auto) 0 (0-100) /uL Sodium (137-145) mmol/L Potassium (3.4-5.1) mmol/L Chloride (98-107) mmol/L Carbon Dioxide (22-32) mmol/L BUN (9-20) mg/dL Creatinine (0.66-1.25) mg/dL Estimated GFR (>60) mL/min BUN/Creatinine Ratio (6-22) Glucose (80-110) mg/dL Calcium (8.4-10.2) mg/dL Magnesium (1.6-2.3) mg/dL Total Bilirubin (0.2-1.3) mg/dL AST (17-59) IU/L ALT (<50) IU/L Alkaline Phosphatase (38-126) U/L Total Creatine Kinase (55-170) U/L CK-MB (CK-2) (<2.37) ng/mL CK-MB (CK-2) Rel Index (1.5-5.0) % Troponin I (0.01-0.034) ng/mL Total Protein (6.3-8.2) g/dL Albumin (3.5-5.0) g/dL Globulin (1.7-4.1) g/dL Albumin/Globulin Ratio (1.0-2.8) Lipase (23-300) U/L Ethyl Alcohol 184 H ( - 10) mg/dL SARS-CoV-2 (PCR) Negative (Negative) 05/12/22 Range/Units 17:08 WBC (4.5-11.0) X10^3/uL RBC (4.5-5.9) X10^6/uL Hgb (13.5-17.5) g/dL Hct (41-53) % MCV (80-100) fL MCH (26-34) PG MCHC (30-36) % RDW (11.6-14.8) % Plt Count (150-400) X10^3/uL Neut % (Auto) (50-75) % Lymph % (Auto) (25-40) % Wolfe % (Auto) (3-14) % Eos % (Auto) (2-4) % Baso % (Auto) (0-2) % Neut # (Auto) (4336-0128) /uL Lymph # (Auto) (6670-4284) /uL Wolfe # (Auto) (0-900) /uL Eos # (Auto) (0-450) /uL Baso # (Auto) (0-100) /uL Sodium 126 L (137-145) mmol/L Potassium 3.8 (3.4-5.1) mmol/L Chloride 91 L (98-107) mmol/L Carbon Dioxide 26 (22-32) mmol/L BUN 5 L (9-20) mg/dL Creatinine 0.45 L (0.66-1.25) mg/dL Estimated GFR > 60 (>60) mL/min BUN/Creatinine Ratio 11.1 (6-22) Glucose 100 (80-110) mg/dL Calcium 7.7 L (8.4-10.2) mg/dL Magnesium 1.8 (1.6-2.3) mg/dL Total Bilirubin 1.5 H (0.2-1.3) mg/dL AST 51 (17-59) IU/L ALT 19 (<50) IU/L Alkaline Phosphatase 137 H (38-126) U/L Total Creatine Kinase 102 (55-170) U/L CK-MB (CK-2) 1.78 (<2.37) ng/mL CK-MB (CK-2) Rel Index 1.7 (1.5-5.0) % Troponin I 0.017 (0.01-0.034) ng/mL Total Protein 7.1 (6.3-8.2) g/dL Albumin 3.5 (3.5-5.0) g/dL Globulin 3.6 (1.7-4.1) g/dL Albumin/Globulin Ratio 1.0 (1.0-2.8) Lipase 123 (23-300) U/L Ethyl Alcohol ( - 10) mg/dL SARS-CoV-2 (PCR) (Negative) Urine Dip Bedside Urine Glucose Negative Bedside Urine Bilirubin - Negative Bedside Urine Ketone - Negative Urine Specific Swisher 1.005 Bedside Urine Occult Blood - Negative Bedside Urine Protein - Negative Bedside Urine Urobilinogen - Negative Bedside Urine Nitrite - Negative Bedside Urine Leukocytes - Negative Esterase Imaging Data Chest x-ray: Radiologist's Impression: [facility] [address] [place] [address] XRay Report Signed Patient: Shmuel Simpson I MR#: [id number] : 1955 Acct:[id number] Age/Sex: 66 / M Date of Service: 05/12/22 Loc: ED Accession Number: [id number] ?? Procedure: XR ribs LT min 3V w CXR1V Ordering Provider: Mimi Brown D.O. PROCEDURE:? XR RIBS LT MIN 3V W CXR1V ? INDICATIONS:? fall several days ago ? TECHNIQUE:? 3 views of the left ribs were acquired, along with a single view chest.? ? COMPARISON:? None. ? FINDINGS:? ? Surgical changes and devices:? None.? ? Bones and chest wall:? There is no displaced fracture.? Motion artifact obscures bony detail. ? Lungs and pleura:? No hemothorax or pneumothorax.? No dense consolidation. ? Mediastinum:? Mediastinal contours appear normal.? Heart size is normal.? ? IMPRESSION:? Evaluation is limited by motion artifact.? There is no displaced fracture.? Consider CT if there is high clinical concern.? ? Dictated by: Lee Rahman M.D. on 05/12/2022 at 16:44 ? ? Approved by: Lee Rahman M.D. on 05/12/2022 at 16:48?? CT scan - head: Radiologist's Impression: [address] [address] [address] Scan Report Signed Patient: Shmuel Simpson I MR#: [id number] : 1955 Acct:[id number] Age/Sex: 66 / M Date of Service: 05/12/22 Loc: ED Accession Number: [id number] ?? Procedure: CT head/brain wo con Ordering Provider: Hemalatha Hand D.O. PROCEDURE:? CT HEAD/BRAIN WO CON ? INDICATIONS:? fall, prior head injuries ? TECHNIQUE:? Noncontrast 4.5 mm thick angled axial sections acquired from the foramen magnum to the vertex, with coronal and sagittal reformats.? For radiation dose reduction, the following was used:? automated exposure control, adjustment of mA and/or kV according to patient size.? ? COMPARISON:? [facility], CT, CT HEAD/BRAIN WO CON, 03/15/2022, 14:08.? [facility], CT, CT HEAD/BRAIN WO CON, 02/24/2022, 11:40. ? FINDINGS:? Image quality:? Excellent.? ? CSF spaces:? Basal cisterns are patent.? No extra-axial fluid collections.? The ventricles are symmetric in size and shape.? ? Brain:? No intracranial bleeds or masses.? There is moderate cerebral volume loss for age, with resultant ventricular and sulcal prominence.? There are moderate periventricular and deep white matter chronic small vessel ischemic changes.? There is intracranial internal carotid artery atherosclerosis.? ? Skull and face:? Calvarium and visualized facial bones appear intact, without suspicious lesions.? ? Sinuses:? Mild right maxillary sinus mucosal thickening.? Other visualized paranasal? sinuses and mastoids are clear.? ? IMPRESSION:? 1. CT head without acute intracranial abnormalities or acute calvarial fractures. ? 2. Age-related senescent changes and sequela of chronic small vessel ischemic disease. ? 3. Mild right maxillary sinus disease.? ? ? Dictated by: Brenton Sagastume M.D. on 05/12/2022 at 19:08 ? ? Approved by: Brenton Sagastume M.D. on 05/12/2022 at 19:09? CT - cervical spine: Radiologist's Impression: Close Cervical Spine CT (Signed) Brenton Sagastume - 05/12/[address] (Signed) Brenton Sagastume - 05/12/22 Ribs X-Ray (Signed) Lee Rahman - 05/12/22 Launch?[place] [address] CT Scan Report Signed Patient: Shmuel Simpson I MR#: [id number] : 1955 Acct:[id number] Age/Sex: 66 / M Date of Service: 05/12/22 Loc: ED Accession Number: [id number] ?? Procedure: CT cervical spine wo con Ordering Provider: Hemalatha Hand D.O. PROCEDURE:? CT CERVICAL SPINE WO CON ? INDICATIONS:? fall, prior head injuries ? TECHNIQUE:? Noncontrast 3 mm thick sections acquired from the skull base to the T4 level.? Sagittal and coronal reformats were then constructed.? For radiation dose reduction, the following was used:? automated exposure control, adjustment of mA and/or kV according to patient size.? ? COMPARISON:? [facility], CT, CT CERVICAL SPINE WO CON, 03/09/2021, 14:04. ? FINDINGS:? Image quality:? Excellent.? ? Bones:? No acute fractures or dislocations.? No acute compression fractures of the vertebral bodies. Craniocervical junction is intact. C1-C2 relationship is preserved. Visualized superior ribs are intact.? Stable appearance of severe multilevel cervical spondylosis.? Osseous fusion across C5-6.? Variable degrees of bony neuroforaminal and spinal canal stenosis. ? Soft tissues:? Prevertebral soft tissues are normal in thickness.? No paravertebral hematomas.? No apical pneumothoraces.? Right subclavian stent visualized.? ? ? IMPRESSION:? CT cervical spine without acute fracture or traumatic malalignment. ? ? ? Dictated by: Brenton Sagastume M.D. on 05/12/2022 at 19:09 ? ? Approved by: Brenton Sagastume M.D. on 05/12/2022 at 19:12?? ECG Data Attestation: I personally reviewed and interpreted this ECG as follows: Prior ECG tracings: available for review Interpretation: Rate of 73, CO 170, QRS 84 QTC 456. No acute ST changes. Patient has prior EKG from 03/15/2022 MDM Narrative Medical decision making narrative: This is a 66 year old male with complaint of multiple falls and generalized weakness. Patient has known alcohol abuse, prior hyponatremia which is not normal but improved from hospitalization when he was 89 at the beginning of February. Head CT and CT C-spine were obtained as patient has multiple falls with alcohol on board although these were several days ago according to the patient he did have 1 today left chest x-ray does not show rib fracture or other changes. Labs are otherwise fairly baseline. Bilirubin is slightly elevated and was on last visit. Patient states he prefers to return home today. Patient states he needs an ambulance because he does not have his walker but he is able to ambulate in the department. We are able to potentially provide a walker for him and he has an elevator going up to his 2nd floor apartment according to the patient. EMS actually went the home the patient got his walker to assist patient. Discharge Plan Departure Patient Disposition: Home Clinical Impression: Falls, Alcohol abuse, Chronic hyponatremia Instructions: How to Prevent Falls Activity Restrictions/Additional Instructions: Follow-up with your physician for recheck. I would recommend decreasing your alcohol use if you are open to her social service assistant is happy to reach out to you to offer options. You may continue your home medications as prescribed. Please return for new or worsening symptoms, severe headaches, worsening chest pain, shortness of breath, coughing up blood or other new or concerning changes. Prescriptions: No Action omeprazole 20 mg capsule,delayed release(DR/EC) 20 mg PO DAILY Qty: 30 6RF trazodone 50 mg tablet 50 mg PO BEDTIME Qty: 90 3RF losartan 100 mg tablet 100 mg PO DAILY Qty: 90 3RF carvedilol 3.125 mg tablet 3.125 mg PO BID Qty: 180 3RF Rx Instructions: must administer with a meal/food levothyroxine [Synthroid] 75 mcg tablet 75 mcg PO QDAY Qty: 90 3RF folic acid 1 mg Tablet 1 mg PO DAILY Qty: 30 0RF benzonatate 100 mg Capsule 100 mg PO TID PRN (Reason: Cough) Qty: 30 0RF multivitamin with folic acid [Tab-A-Keren] 400 mcg Tablet 1 tab PO DAILY Qty: 30 0RF nicotine 14 mg/24 hr Patch 24 Hour 14 mg topical DAILY Qty: 28 0RF thiamine mononitrate (vit B1) 100 mg Tablet 100 mg PO DAILY Qty: 30 0RF Referrals: Jose Wyman MD [Primary Care Provider] - Visit Report Forms: Patient Portal/API
--- NOTE | 2022-05-12 18:32 | DI.CT.S_ITS ---
PROCEDURE: CT CERVICAL SPINE WO CON INDICATIONS: fall, prior head injuries TECHNIQUE: Noncontrast 3 mm thick sections acquired from the skull base to the T4 level. Sagittal and coronal reformats were then constructed. For radiation dose reduction, the following was used: automated exposure control, adjustment of mA and/or kV according to patient size. COMPARISON: [facility], CT, CT CERVICAL SPINE WO CON, 03/09/2021, 14:04. FINDINGS: Image quality: Excellent. Bones: No acute fractures or dislocations. No acute compression fractures of the vertebral bodies. Craniocervical junction is intact. C1-C2 relationship is preserved. Visualized superior ribs are intact. Stable appearance of severe multilevel cervical spondylosis. Osseous fusion across C5-6. Variable degrees of bony neuroforaminal and spinal canal stenosis. Soft tissues: Prevertebral soft tissues are normal in thickness. No paravertebral hematomas. No apical pneumothoraces. Right subclavian stent visualized. IMPRESSION: CT cervical spine without acute fracture or traumatic malalignment. Dictated by: Brenton Sagastume M.D. on 05/12/2022 at 19:09 Approved by: Brenton Sagastume M.D. on 05/12/2022 at 19:12
--- NOTE | 2022-05-12 18:32 | DI.CT.S_ITS ---
PROCEDURE: CT HEAD/BRAIN WO CON INDICATIONS: fall, prior head injuries TECHNIQUE: Noncontrast 4.5 mm thick angled axial sections acquired from the foramen magnum to the vertex, with coronal and sagittal reformats. For radiation dose reduction, the following was used: automated exposure control, adjustment of mA and/or kV according to patient size. COMPARISON: [facility], CT, CT HEAD/BRAIN WO CON, 03/15/2022, 14:08. [facility], CT, CT HEAD/BRAIN WO CON, 02/24/2022, 11:40. FINDINGS: Image quality: Excellent. CSF spaces: Basal cisterns are patent. No extra-axial fluid collections. The ventricles are symmetric in size and shape. Brain: No intracranial bleeds or masses. There is moderate cerebral volume loss for age, with resultant ventricular and sulcal prominence. There are moderate periventricular and deep white matter chronic small vessel ischemic changes. There is intracranial internal carotid artery atherosclerosis. Skull and face: Calvarium and visualized facial bones appear intact, without suspicious lesions. Sinuses: Mild right maxillary sinus mucosal thickening. Other visualized paranasal sinuses and mastoids are clear. IMPRESSION: 1. CT head without acute intracranial abnormalities or acute calvarial fractures. 2. Age-related senescent changes and sequela of chronic small vessel ischemic disease. 3. Mild right maxillary sinus disease. Dictated by: Brenton Sagastume M.D. on 05/12/2022 at 19:08 Approved by: Brenton Sagastume M.D. on 05/12/2022 at 19:09
[2022-05-12 18:49] LABS: Ethanol (ETOH) 184 mg/dL
== END 2022-05-12 22:35 | disposition home or self-care (01) ==
PROVIDERS: Emergency Medicine; Emergency Provider Emergency Medicine; PCP Internal Medicine
DX: F10.129 Alcohol abuse with intoxication, unspecified (principal); Y90.6 Blood alcohol level of 120-199 mg/100 ml; E87.1 Hypo-osmolality and hyponatremia; S29.9XXA Unspecified injury of thorax, initial encounter; S09.90XA Unspecified injury of head, initial encounter; Z20.822 Contact with and (suspected) exposure to COVID-19; R29.6 Repeated falls
CPT/HCPCS: 70450; 71101; 72125; 80053; 80320; 81003; 82550; 82553; 83690; 83735; 84484; 85025; 87635; 93005; 99283; 99284; C9803

== ENCOUNTER 2022-05-16 09:41 | Inpatient (IN) | payer MEDICARE, MEDICAID, SELFPAY ==
[2020-02-23 11:45] VITALS: PULSE 67; RESP 20; O2SAT 100
[2022-03-15 14:18] VITALS: BMI 22.2
[2022-05-16] VITALS (18 sets, daily range): BP systolic 109–160; BP diastolic 64–92; PULSE 81–120; RESP 11–26; TEMP 36.1–36.8; O2SAT 93–100; BMI 22.9
--- NOTE | 2022-05-16 | DI.RAD.S_ITS ---
PROCEDURE: XR HIP W PEL IF DONE LT 2V INDICATIONS: INTRA OP TECHNIQUE: 4 intraoperative low resolution fluoroscopic spot films were obtained COMPARISON: [facility], CR, XR HIP W PEL IF DONE LT 2V, 05/16/2022, 10:06. FINDINGS: Intraoperative fluoroscopic images show femoral nail and cannulated screws transfixing an intertrochanteric femoral neck fracture in good position IMPRESSION: Fluoroscopic guidance Approved by: Lucas De La Cruz M.D. on 05/16/2022 at 15:54
--- NOTE | 2022-05-16 10:01 | DI.RAD.S_ITS ---
PROCEDURE: XR FEMUR LT MIN 2V INDICATIONS: leg pain after fall TECHNIQUE: 2 views of the femur were acquired. COMPARISON: None. FINDINGS: Bones: Comminuted intertrochanteric left femoral fracture noted with superior subluxation of the distal fracture fragment. Advanced degenerative joint space narrowing noted at the knee. Generalized decrease in osseous mineralization noted. Soft tissues: Diffuse atherosclerotic vascular calcification. IMPRESSION: Comminuted angulated intertrochanteric left femoral fracture Approved by: Lucas De La Cruz M.D. on 05/16/2022 at 9:36
--- NOTE | 2022-05-16 10:01 | ED_ITS ---
HPI - General Adult General Chief complaint: Weakness Stated complaint: Fall/Weakness Time Seen by Provider: 05/16/22 09:55 Source: patient and EMS Mode of arrival: EMS Limitations: no limitations History of Present Illness HPI narrative: Patient is a 67-year-old male. History of hypothyroidism and high blood pres sure. Also has a history of alcohol abuse. Recently admitted to the hospital for hyponatremia. Has multiple falls most likely related to his alcohol use. Senior recently for fall. Had CT scans performed which were unremarkable. Was discharged home. On Tuesday he stated that he lost his balance and fell and landed on his left hip. Had pain in his hip but was able to walk on it afterwards and walk on it on Tuesday however has had increasing discomfort until today where he states that he could not stand on his leg at all. On the fall on Tuesday he did not hit his head. No neck pain. His last meal was at approximately 0600 hours this morning. He states he did drink ?some beer? this morning as well. He reports never having withdrawn from alcohol in the past. No other injuries from the fall. Related Data Previous Rx's Medication Instructions Recorded omeprazole 20 mg capsule,delayed 20 mg PO DAILY #30 caps 05/25/21 release benzonatate 100 mg capsule 100 mg PO TID PRN Cough #30 caps 03/19/22 folic acid 1 mg tablet 1 mg PO DAILY #30 tabs 03/19/22 multivitamin with folic acid 400 1 tab PO DAILY #30 tabs 03/19/22 mcg tablet (Tab-A-Keren) nicotine 14 mg/24 hr daily 14 mg topical DAILY #28 ea 03/19/22 transdermal patch thiamine mononitrate (vit B1) 100 100 mg PO DAILY #30 tabs 03/19/22 mg tablet carvedilol 3.125 mg tablet 3.125 mg PO BID #180 tabs 04/15/22 levothyroxine 75 mcg tablet 75 mcg PO QDAY #90 tabs 04/15/22 (Synthroid) losartan 100 mg tablet 100 mg PO DAILY #90 tabs 04/15/22 trazodone 50 mg tablet 50 mg PO BEDTIME #90 tabs 04/15/22 Allergies Allergy/AdvReac Type Severity Reaction Status Date / Time ciprofloxacin [From CIPRO] Allergy Severe SWELLING Verified 04/15/22 10:58 IN HANDS, ARMS, LEGS AND FEET pantoprazole AdvReac Intermediate n/v, Verified 04/15/22 10:58 omeprazole okay Review of Systems Constitutional Constitutional: Reports system reviewed and no additional complaints, except as documented Gastrointestinal Gastrointestinal: Reports system reviewed and no additional complaints, except as documented Musculoskeletal Musculoskeletal: Reports system reviewed and no additional complaints, except as documented and Reports as per HPI Integumentary/Breasts Skin/Breast: Reports system reviewed and no additional complaints, except as documented Neurologic Neurologic: Reports system reviewed and no additional complaints, except as documented Hematologic/Lymphatic On Anticoagulants: No Patient History Medical History Alcohol dependence Alcoholism Anoxic brain injury Cardiomyopathy Cataracts, bilateral (2007) Chronic cough (1999) COPD (chronic obstructive pulmonary disease) Dislocated elbow (2000) Dislocated shoulder (2001) Eczema (2016) Elevated liver function tests Essential hypertension Fractures (~1963) GERD (gastroesophageal reflux disease) Hypothyroidism Impaired vision Paroxysmal atrial fibrillation Pulmonary nodule (~07/2019) Surgical History History of cataract removal with insertion of prosthetic lens History of nasal surgery (1963) History of repair of hiatal hernia Hx of hernia repair (1995) Family History Father History of arteriosclerotic cardiovascular disease History of emphysema Mother Cancer Grandfather No problems noted. Grandmother Stroke Grandfather No problems noted. Grandmother No problems noted. Social History household members: none Smoking Status: Current every day smoker Tobacco: How many years used: 22 quit status: not considering quitting second hand exposure: No alcohol intake: current substance use type: does not use Smoking Status: Current every day smoker tobacco type: cigarettes alcohol intake frequency: 3 or more drinks per day Alcohol type: beer and hard liquor Substance Use Type: does not use Exam Initial Vital Signs Initial Vital Signs: Vital Signs Pulse Rate 103 H 05/16/22 09:46 Respiratory Rate 20 05/16/22 09:46 Pulse Oximetry 99 05/16/22 09:46 HENMT Head: normal to inspection Resp Effort & Inspection: normal respiratory effort Auscultation: clear to auscultation bilaterally Cardio Rate: regular rate Rhythm: regular rhythm GI Inspection: normal to inspection Skin General: no rashes or lesions noted Neuro General: patient alert, patient awake and patient oriented x3 Extrem Other: Patient has some discomfort to the left knee but most of his discomfort is in his left hip. His left ankle is unremarkable. No lower back discomfort. Course Orders Ordered: ED Orders 05/16/22 10:01 XR femur LT min 2V Stat XR hip w pel if done LT 2V Stat 05/16/22 10:05 Complete Blood Count AUTO DIFF Stat Comprehensive Metabolic Panel Stat Ethanol (ETOH) Stat Lipase Stat Partial Thromboplastin Time Stat Prothrombin Time INR Stat 05/16/22 11:00 Type and Screen Stat 05/16/22 11:57 Consult to Orthopedic Surgery Stat 05/16/22 12:00 EKG-12 Lead Stat Carvedilol (Carvedilol 3.125 Mg Tablet) 3.125 mg PO BID CAILIN Folic Acid (Folic Acid 1 Mg Tablet) 1 mg PO DAILY CAILIN Sodium Chloride (Normal Saline 0.9%) 1,000 mls @ 125 mls/hr IV CONT CAILIN Last Infusion: 05/16/22 12:30 Dose: 125 mls/hr Documented By: Admin: 05/16/22 10:59 Dose: 125 mls/hr Documented By: RB Sodium Chloride (Normal Saline 0.9%) 1,000 mls @ 100 mls/hr IV CONT CAILIN Levothyroxine Sodium (Levothyroxine 75 Mcg Tablet) 75 mcg PO DAILY@0600 CAILIN Lorazepam (Lorazepam 1 Mg Tablet) 1 mg PO Q8HR CAILIN; Protocol Losartan Potassium (Losartan 50 Mg Tablet) 100 mg PO DAILY CAILIN Morphine Sulfate (Morphine 2 Mg/Ml Inj) 2 mg IV Q4H PRN PRN Reason: Breakthrough pain only (8-10) Multivitamins (Multivitamin 1 Tablet) 1 tab PO DAILY CAILIN Nicotine (Nicotine 14 Patch) 14 mg TOP DAILY CALIIN Non-Formulary Medication (Omeprazole) 20 mg PO DAILY CAILIN Thiamine HCl (Thiamine 100 Mg Tablet) 100 mg PO DAILY CAILIN Stop: 05/19/22 09:01 Trazodone HCl (Trazodone 50 Mg Tablet) 50 mg PO BEDTIME CAILIN Discontinued Medications Thiamine HCl 100 mg/ Sodium (Chloride) 101 mls @ 404 mls/hr IV NOW ONE Stop: 05/16/22 10:08 Last Infusion: 05/16/22 10:54 Dose: 0 mls/hr Documented By: Admin: 05/16/22 10:31 Dose: 404 mls/hr Documented By: RB Morphine Sulfate (Morphine 2 Mg/Ml Inj) 2 mg IV NOW ONE Stop: 05/16/22 11:35 Last Admin: 05/16/22 11:43 Dose: 2 mg Documented By: RB Vital Signs Vital signs: Vital Signs - 8 hr 05/16/22 09:57 05/16/22 09:46 05/16/22 10:00 Temperature 97.8 F Pulse Rate 98 H 103 H Respiratory Rate 22 20 Blood Pressure 139/85 129/83 Pulse Oximetry 99 99 Oxygen Delivery Method Room Air 05/16/22 10:00 05/16/22 10:30 05/16/22 11:00 Temperature Pulse Rate 90 92 H 86 Respiratory Rate 24 22 23 Blood Pressure Pulse Oximetry 99 100 97 Oxygen Delivery Method 05/16/22 11:09 05/16/22 11:09 05/16/22 11:30 Temperature Pulse Rate 87 Respiratory Rate 24 Blood Pressure 158/89 H 160/87 H Pulse Oximetry 100 Oxygen Delivery Method 05/16/22 11:30 05/16/22 12:00 05/16/22 12:00 Temperature Pulse Rate 81 87 Respiratory Rate 20 20 Blood Pressure 142/83 H Pulse Oximetry 97 99 Oxygen Delivery Method Medical Decision Making Lab Data Lab results reviewed: Yes I reviewed the patient's lab results. Result diagrams: 05/16/22 10:05 05/16/22 10:05 Labs: Lab Results 05/16/22 05/16/22 05/16/22 Range/Units 10:05 10:05 10:05 WBC 8.1 (4.5-11.0) X10^3/uL RBC 3.25 L (4.5-5.9) X10^6/uL Hgb 11.5 L (13.5-17.5) g/dL Hct 32.0 L (41-53) % MCV 98.3 (80-100) fL MCH 35.3 H (26-34) PG MCHC 35.9 (30-36) % RDW 13.5 (11.6-14.8) % Plt Count 209 (150-400) X10^3/uL Neut % (Auto) 71.7 (50-75) % Lymph % (Auto) 13.6 L (25-40) % [place] % (Auto) 14.2 H (3-14) % Eos % (Auto) 0.0 L (2-4) % Baso % (Auto) 0.5 (0-2) % Neut # (Auto) 5800 (6402-4194) /uL Lymph # (Auto) 1100 (9003-5321) /uL [place] # (Auto) 1200 H (0-900) /uL Eos # (Auto) 0 (0-450) /uL Baso # (Auto) 0 (0-100) /uL PT 13.1 H (10.1-12.7) SECONDS INR 1.1 (0.9-1.3) APTT 27 (26-36) SECONDS Sodium 125 L (137-145) mmol/L Potassium 4.0 (3.4-5.1) mmol/L Chloride 88 L (98-107) mmol/L Carbon Dioxide 25 (22-32) mmol/L BUN 13 (9-20) mg/dL Creatinine 0.50 L (0.66-1.25) mg/dL Estimated GFR > 60 (>60) mL/min BUN/Creatinine Ratio 26.0 H (6-22) Glucose 111 H (80-110) mg/dL Calcium 8.4 (8.4-10.2) mg/dL Total Bilirubin 3.3 H (0.2-1.3) mg/dL AST 66 H (17-59) IU/L ALT 31 (<50) IU/L Alkaline Phosphatase 129 H (38-126) U/L Total Protein 7.6 (6.3-8.2) g/dL Albumin 3.7 (3.5-5.0) g/dL Globulin 3.9 (1.7-4.1) g/dL Albumin/Globulin Ratio 0.9 L (1.0-2.8) Lipase 165 (23-300) U/L Ethyl Alcohol < 10 ( - 10) mg/dL Blood Type Antibody Screen 05/16/22 Range/Units 11:00 WBC (4.5-11.0) X10^3/uL RBC (4.5-5.9) X10^6/uL Hgb (13.5-17.5) g/dL Hct (41-53) % MCV (80-100) fL MCH (26-34) PG MCHC (30-36) % RDW (11.6-14.8) % Plt Count (150-400) X10^3/uL Neut % (Auto) (50-75) % Lymph % (Auto) (25-40) % [place] % (Auto) (3-14) % Eos % (Auto) (2-4) % Baso % (Auto) (0-2) % Neut # (Auto) (4970-8029) /uL Lymph # (Auto) (0939-2140) /uL [place] # (Auto) (0-900) /uL Eos # (Auto) (0-450) /uL Baso # (Auto) (0-100) /uL PT (10.1-12.7) SECONDS INR (0.9-1.3) APTT (26-36) SECONDS Sodium (137-145) mmol/L Potassium (3.4-5.1) mmol/L Chloride (98-107) mmol/L Carbon Dioxide (22-32) mmol/L BUN (9-20) mg/dL Creatinine (0.66-1.25) mg/dL Estimated GFR (>60) mL/min BUN/Creatinine Ratio (6-22) Glucose (80-110) mg/dL Calcium (8.4-10.2) mg/dL Total Bilirubin (0.2-1.3) mg/dL AST (17-59) IU/L ALT (<50) IU/L Alkaline Phosphatase (38-126) U/L Total Protein (6.3-8.2) g/dL Albumin (3.5-5.0) g/dL Globulin (1.7-4.1) g/dL Albumin/Globulin Ratio (1.0-2.8) Lipase (23-300) U/L Ethyl Alcohol ( - 10) mg/dL Blood Type A Positive Antibody Screen Negative Imaging Data Extremity x-ray #1: Radiologist's Impression: [address] [address] XRay Report Signed Patient: Shmuel Simpson I MR#: [id number] : 1955 Acct:[id number] Age/Sex: 67 / M Date of Service: 05/16/22 Loc: ED Accession Number: [id number] ?? Procedure: XR hip w pel if done LT 2V Ordering Provider: Kenneth White D.O. PROCEDURE:? XR HIP W PEL IF DONE LT 2V ? INDICATIONS:? hip pain after fall ? TECHNIQUE:? 2 views of the hip were acquired.? ? COMPARISON:? None. ? FINDINGS:? ? Bones:? Comminuted intertrochanteric left femoral fracture with superior subluxation of the distal fracture fragment.? Femoral head is appropriate contour without dislocation.? Pelvic ring intact ? Soft tissues:? No suspicious soft tissue calcifications or masses.? ? IMPRESSION:? ? Comminuted angulated left femoral intertrochanteric fracture ? ? ? Approved by: Lucas De La Cruz M.D. on 05/16/2022 at 9:38? Extremity x-ray #2: Radiologist's Impression: [place] [address] XRay Report Signed Patient: Shmuel Simpson I MR#: [id number] : 1955 Acct:[id number] Age/Sex: 67 / M Date of Service: 05/16/22 Loc: ED Accession Number: [id number] ?? Procedure: XR hip w pel if done LT 2V Ordering Provider: Kenneth White D.O. PROCEDURE:? XR HIP W PEL IF DONE LT 2V ? INDICATIONS:? hip pain after fall ? TECHNIQUE:? 2 views of the hip were acquired.? ? COMPARISON:? None. ? FINDINGS:? ? Bones:? Comminuted intertrochanteric left femoral fracture with superior subluxation of the distal fracture fragment.? Femoral head is appropriate contour without dislocation.? Pelvic ring intact ? Soft tissues:? No suspicious soft tissue calcifications or masses.? ? IMPRESSION:? ? Comminuted angulated left femoral intertrochanteric fracture ? ? ? Approved by: Lucas De La Cruz M.D. on 05/16/2022 at 9:38? Extremity x-ray #3: Radiologist's Impression: [address] [address] XRay Report Signed Patient: Shmuel Simpson I MR#: [id number] : 1955 Acct:[id number] Age/Sex: 67 / M Date of Service: 05/16/22 Loc: ED Accession Number: [id number] ?? Procedure: XR femur LT min 2V Ordering Provider: Kenneth White D.O. PROCEDURE:? XR FEMUR LT MIN 2V ? INDICATIONS:? leg pain after fall ? TECHNIQUE:? 2 views of the femur were acquired.? ? COMPARISON:? None. ? FINDINGS:? ? Bones:? Comminuted intertrochanteric left femoral fracture noted with superior subluxation of the distal fracture fragment.? Advanced degenerative joint space narrowing noted at the knee. Generalized decrease in osseous mineralization noted. ? Soft tissues:? Diffuse atherosclerotic vascular calcification. ? IMPRESSION:? ? Comminuted angulated intertrochanteric left femoral fracture ? ? ? Approved by: Lucas De La Cruz M.D. on 05/16/2022 at 9:36? [facility] Narrative Medical decision making narrative: Patient is a left-sided intertrochanteric hip fracture. Patient reports no other injuries from the event. No neck pain. He is alert oriented x3. GCS 15. Discussed the case with Dr. Skinner with orthopedics who will evaluate the patient as a inpatient and most likely take to surgery. Discussed the case with Dr. Durham who is on-call for the patient's primary doctor who will admit for further evaluation treatment. I did discuss the findings of the x-rays with the patient. Discussed the need for admission. He expressed understanding and agreement. Discharge Plan Departure Patient Disposition: Admitted As Inpatient Clinical Impression: Intertrochanteric fracture of left hip, Hyponatremia Admit Date/Time: 05/16/22 12:01 Admit Provider: Ron Durham
--- NOTE | 2022-05-16 10:01 | DI.RAD.S_ITS ---
PROCEDURE: XR HIP W PEL IF DONE LT 2V INDICATIONS: hip pain after fall TECHNIQUE: 2 views of the hip were acquired. COMPARISON: None. FINDINGS: Bones: Comminuted intertrochanteric left femoral fracture with superior subluxation of the distal fracture fragment. Femoral head is appropriate contour without dislocation. Pelvic ring intact Soft tissues: No suspicious soft tissue calcifications or masses. IMPRESSION: Comminuted angulated left femoral intertrochanteric fracture Approved by: Lucas De La Cruz M.D. on 05/16/2022 at 9:38
[2022-05-16 10:15] LABS: Add Manual Diff / Slide Review NO; Basophils Absolute Auto 0 /uL (0-100); Basophils Percent Auto 0.5 % (0-2); Eosinophils Absolute Auto 0 /uL (0-450); Hemoglobin 11.5 g/dL (13.5-17.5); Lymphocytes Absolute Auto 1100 /uL (1100-4500); Lymphocytes Percent Auto 13.6 % (25-40); Mean Corpuscular HGB Conc 35.9 % (30-36); Mean Corpuscular Hemoglobin 35.3 PG (26-34); Mean Corpuscular Volume 98.3 fL (80-100); Monocytes Absolute Auto 1200 /uL (0-900); Monocytes Percent Auto 14.2 % (3-14); Neutrophils Absolute Auto 5800 /uL (1500-7000); Neutrophils Percent Auto 71.7 % (50-75); Platelet Count 209 X10^3/uL (150-400); Red Blood Cell Count 3.25 X10^6/uL (4.5-5.9); Red Cell Distribution Width 13.5 % (11.6-14.8); White Blood Cell Count 8.1 X10^3/uL (4.5-11.0)
[2022-05-16] MEDS: THIAMINE 100 MG in SODIUM CHLORIDE 0.9% 100 ML 404 MG IV (10:31)
[2022-05-16 10:32] LABS: Alanine Aminotransferase 31 IU/L (<50); Albumin 3.7 g/dL (3.5-5.0); Albumin Globulin Ratio 0.9 (1.0-2.8); Alkaline Phosphatase 129 U/L (38-126); Aspartate Aminotransferase 66 IU/L (17-59); Bilirubin Total 3.3 mg/dL (0.2-1.3); Blood Urea Nitrogen 13 mg/dL (9-20); Calcium 8.4 mg/dL (8.4-10.2); Carbon Dioxide 25 mmol/L (22-32); Chloride 88 mmol/L (98-107); Estimated Glomerular Filt Rate > 60 mL/min (>60); Ethanol (ETOH) < 10 mg/dL; Globulin 3.9 g/dL (1.7-4.1); Glucose 111 mg/dL (80-110); HEMOLYSIS 23 (0-50); Lipase 165 U/L (23-300); Sodium 125 mmol/L (137-145); Total Protein 7.6 g/dL (6.3-8.2)
[2022-05-16 10:49] LABS: INR 1.1 (0.9-1.3); Prothrombin Time 13.1 SECONDS (10.1-12.7)
[2022-05-16 10:52] LABS: PTT Partial Thromboplastin Tim 27 SECONDS (26-36)
[2022-05-16] MEDS: SODIUM CHLORIDE 0.9% 1,000 ML 125 ML IV (10:59)
[2022-05-16] MEDS: MORPHINE 2 MG/ML INJ IV (11:43)
--- NOTE | 2022-05-16 12:30 | P.HP_ITS ---
History of Present Illness History of Present Illness Date Patient Seen: 05/16/22 Chief complaint: Fall/Weakness Narrative: 67-year-old male with a history of alcohol misuse disorder with alcohol dependence anoxic brain injury hypertension cardiomyopathy paroxysmal atrial fibrillation smoker and frequent falls with acquired hypothyroidism presents to the emergency department with a fall. He has been in and out of the emergency department over the last few weeks with a couple of falls last emergency room visit was on Tuesday. Had CT and evaluation that point. And was discharged home. He says since then he has had increasing difficulty with walking. He fell again this morning. He thinks he fell between his last visit and this visit but he is not a very good historian. He says he fell on his left hip. He called the ambulance this morning because he could not walk. He tried to walk again this morning well the paramedics were at his house unable to do so and they brought him here to the emergency department. His x-rays revealed a left hip fracture. A my evaluation he is not complaining of pain. He is not complaining of shortness of breath palpitations dizziness weakness. Patient states he has some hip pain. He says his last drink was probably this morning although his alcohol level is normal. He smokes. He says he is not sure when he took his medication last. On review of his laboratory tests patient has chronic hyponatremia normal kidney function blood sugars look normal x-ray was reviewed. EKG was reviewed. Patient History Medical History Alcohol dependence Alcoholism Anoxic brain injury Cardiomyopathy Cataracts, bilateral (2007) Chronic cough (1999) COPD (chronic obstructive pulmonary disease) Dislocated elbow (2000) Dislocated shoulder (2001) Eczema (2017) Elevated liver function tests Essential hypertension Fractures (~1963) GERD (gastroesophageal reflux disease) Hypothyroidism Impaired vision Paroxysmal atrial fibrillation Pulmonary nodule (~07/2019) Surgical History History of cataract removal with insertion of prosthetic lens History of nasal surgery (1963) History of repair of hiatal hernia Hx of hernia repair (1995) Family & Social History Family History Father History of arteriosclerotic cardiovascular disease History of emphysema Mother Cancer Grandfather No problems noted. Grandmother Stroke Grandfather No problems noted. Grandmother No problems noted. Social History: household members none Safety & Behavioral: Feels Safe in Current Yes Environment Been Physically Hurt or No Threatened By a Person Tobacco & Substance use: Tobacco type cigarettes Smoking Status Current every day smoker alcohol intake current alcohol intake frequency 3 or more drinks per day Substance Use Type does not use Meds Home Medications and Allergies Home Medications Medication Instructions Recorded Confirmed Type omeprazole 20 mg capsule,delayed 20 mg PO DAILY #30 caps 05/25/21 04/15/22 Rx release benzonatate 100 mg capsule 100 mg PO TID PRN Cough #30 caps 03/19/22 04/15/22 Rx folic acid 1 mg tablet 1 mg PO DAILY #30 tabs 03/19/22 04/15/22 Rx multivitamin with folic acid 400 1 tab PO DAILY #30 tabs 03/19/22 04/15/22 Rx mcg tablet (Tab-A-Keren) nicotine 14 mg/24 hr daily 14 mg topical DAILY #28 ea 03/19/22 04/15/22 Rx transdermal patch thiamine mononitrate (vit B1) 100 100 mg PO DAILY #30 tabs 03/19/22 04/15/22 Rx mg tablet carvedilol 3.125 mg tablet 3.125 mg PO BID #180 tabs 04/15/22 04/15/22 Rx levothyroxine 75 mcg tablet 75 mcg PO QDAY #90 tabs 04/15/22 04/15/22 Rx (Synthroid) losartan 100 mg tablet 100 mg PO DAILY #90 tabs 04/15/22 04/15/22 Rx trazodone 50 mg tablet 50 mg PO BEDTIME #90 tabs 04/15/22 04/15/22 Rx Allergies Allergy/AdvReac Type Severity Reaction Status Date / Time ciprofloxacin [From CIPRO] Allergy Severe SWELLING Verified 04/15/22 10:58 IN HANDS, ARMS, LEGS AND FEET pantoprazole AdvReac Intermediate n/v, Verified 04/15/22 10:58 omeprazole okay Exam Vital Signs (past 8 hours): - 05/16/22 09:57 05/16/22 09:46 05/16/22 10:00 Temperature 97.8 F Pulse Rate 98 H 103 H Respiratory Rate 22 20 Blood Pressure 139/85 129/83 Pulse Oximetry 99 99 Oxygen Delivery Method Room Air 05/16/22 10:00 05/16/22 10:30 05/16/22 11:00 Temperature Pulse Rate 90 92 H 86 Respiratory Rate 24 22 23 Blood Pressure Pulse Oximetry 99 100 97 Oxygen Delivery Method 05/16/22 11:09 05/16/22 11:09 05/16/22 11:30 Temperature Pulse Rate 87 Respiratory Rate 24 Blood Pressure 158/89 H 160/87 H Pulse Oximetry 100 Oxygen Delivery Method 05/16/22 11:30 05/16/22 12:00 05/16/22 12:00 Temperature Pulse Rate 81 87 Respiratory Rate 20 20 Blood Pressure 142/83 H Pulse Oximetry 97 99 Oxygen Delivery Method Oxygen Delivery Method Room Air Narrative Exam Narrative: General: Alert no apparent distress HEENT: Pupils equal round and reactive or mucosa is moist neck is supple Cardio: S1-S2 regular rate and rhythm Respiratory: Lungs are clear to auscultation no wheezes or crackles Abdomen: Soft nontender Extremities: Warm dry perfused. No significant edema. Neurologic: Patient is a poor historian Objective Labs Result Diagrams: 05/16/22 10:05 05/16/22 10:05 Labs: Laboratory Results - last 24 hr 05/16/22 05/16/22 05/16/22 10:05 10:05 10:05 WBC 8.1 RBC 3.25 L Hgb 11.5 L Hct 32.0 L MCV 98.3 MCH 35.3 H MCHC 35.9 RDW 13.5 Plt Count 209 Neut % (Auto) 71.7 Lymph % (Auto) 13.6 L [place] % (Auto) 14.2 H Eos % (Auto) 0.0 L Baso % (Auto) 0.5 Neut # (Auto) 5800 Lymph # (Auto) 1100 [place] # (Auto) 1200 H Eos # (Auto) 0 Baso # (Auto) 0 PT 13.1 H INR 1.1 APTT 27 Sodium 125 L Potassium 4.0 Chloride 88 L Carbon Dioxide 25 BUN 13 Creatinine 0.50 L Estimated GFR > 60 BUN/Creatinine Ratio 26.0 H Glucose 111 H Calcium 8.4 Total Bilirubin 3.3 H AST 66 H ALT 31 Alkaline Phosphatase 129 H Total Protein 7.6 Albumin 3.7 Globulin 3.9 Albumin/Globulin Ratio 0.9 L Lipase 165 Ethyl Alcohol < 10 Blood Type Antibody Screen 05/16/22 11:00 WBC RBC Hgb Hct MCV MCH MCHC RDW Plt Count Neut % (Auto) Lymph % (Auto) [place] % (Auto) Eos % (Auto) Baso % (Auto) Neut # (Auto) Lymph # (Auto) [place] # (Auto) Eos # (Auto) Baso # (Auto) PT INR APTT Sodium Potassium Chloride Carbon Dioxide BUN Creatinine Estimated GFR BUN/Creatinine Ratio Glucose Calcium Total Bilirubin AST ALT Alkaline Phosphatase Total Protein Albumin Globulin Albumin/Globulin Ratio Lipase Ethyl Alcohol Blood Type A Positive Antibody Screen Negative Assessment & Plan Assessment and plan (1) Intertrochanteric fracture of left hip: Status: Acute (2) Chronic hyponatremia: Status: Acute (3) Alcohol abuse: Status: Acute (4) Falls: Status: Acute Plan Acute left hip fracture. Patient with left hip fracture found on x-ray this morning orthopedic consultation evaluation done. Preoperatively patient is at moderate risk for hip surgery due to his chronic alcoholism and poor health hyponatremia and frequent falls. He is medically optimized as best as possible for acute surgery. Check here serial hemoglobin and hematocrits providing pain control place him on a beta-padmini for heart protection. Monitor closely a flu id in than out to prevent fluid overload. alcohol misuse disorder with chronic alcoholism. Patient's alcohol level is 0 currently. He says his last drink was this morning. Provide scheduled [facility] monitor for signs and symptoms of withdrawal. Place on vitamin B12 and folic acid. History of anoxic brain injury due to previous alcohol misuse. Paroxysmal atrial fibrillation appears to be normal sinus rhythm vital signs are stable. Monitor electrolytes as well as heart rate during hospital stay continue with beta-padmini he is not on chronic anticoagulation Cardiomyopathy patient history of cardiomyopathy. Patient on angiotensin receptor padmini and beta-padmini. Watch of fluid and take while he is here in the hospital Chronic hyponatremia her moderate. Sodium level below 137. Normal saline will be provided patient will monitor closely his sodium level is here in the hospit al. Smoker. Patient will be given a nicotine patch Acquired hypothyroidism patient will be placed on his thyroid replacement DVT prophylaxis with SCDs hold Lovenox due to upcoming surgery well allow prophylaxis per surgery recommendations after hip fracture Disposition plan patient is is an inpatient Time Spent With Patient Critical Care time: I spent a total of [] minutes of critical care time on this patient's care today; this time is exclusive of procedural time.
[2022-05-16 12:47] LABS: COVID19 -Nasal RAPID Negative (Negative)
[2022-05-16] MEDS: LACTATED RINGERS 1,000 ML 42 ML IV ×2 (13:41→15:20)
--- NOTE | 2022-05-16 14:00 | P.HP_ITS ---
History of Present Illness History of Present Illness Date Patient Seen: 05/16/22 Time Patient Seen: 14:01 Date of Onset of Symptoms: 05/14/22 Chief complaint: Fall/Weakness Narrative: Mr. Simpson is a 67 yo M with history of fall from standing 2 days ago presented here for severe left hip pain and inability bear weight on it. He has been ambulating to his left leg since injury until this morning. He was not able to do so due to severe pain and came in via ambulance. He has history of alcoholism and drinks about 10 drinks daily. The fall is likely related to intoxication. Orthopedic service was consulted for additional management. Patient History Medical History Alcohol dependence Alcoholism Anoxic brain injury Cardiomyopathy Cataracts, bilateral (2007) Chronic cough (1999) COPD (chronic obstructive pulmonary disease) Dislocated elbow (2000) Dislocated shoulder (2001) Eczema (2016) Elevated liver function tests Essential hypertension Fractures (~1963) GERD (gastroesophageal reflux disease) Hypothyroidism Impaired vision Paroxysmal atrial fibrillation Pulmonary nodule (~07/2019) Surgical History History of cataract removal with insertion of prosthetic lens History of nasal surgery (1963) History of repair of hiatal hernia Hx of hernia repair (1995) Family & Social History Family History Father History of arteriosclerotic cardiovascular disease History of emphysema Mother Cancer Grandfather No problems noted. Grandmother Stroke Grandfather No problems noted. Grandmother No problems noted. Social History: household members family,none Prior Living Arrangements Apartment/Condo Safety & Behavioral: Feels Safe in Current Yes Environment Been Physically Hurt or No Threatened By a Person Tobacco & Substance use: Tobacco type cigarettes Smoking Status Current every day smoker alcohol intake current alcohol intake frequency 3 or more drinks per day Substance Use Type does not use Meds Home Medications and Allergies Home Medications Medication Instructions Recorded Confirmed Type omeprazole 20 mg capsule,delayed 20 mg PO DAILY #30 caps 05/25/21 04/15/22 Rx release benzonatate 100 mg capsule 100 mg PO TID PRN Cough #30 caps 03/19/22 04/15/22 Rx folic acid 1 mg tablet 1 mg PO DAILY #30 tabs 03/19/22 04/15/22 Rx multivitamin with folic acid 400 1 tab PO DAILY #30 tabs 03/19/22 04/15/22 Rx mcg tablet (Tab-A-Keren) nicotine 14 mg/24 hr daily 14 mg topical DAILY #28 ea 03/19/22 04/15/22 Rx transdermal patch thiamine mononitrate (vit B1) 100 100 mg PO DAILY #30 tabs 03/19/22 04/15/22 Rx mg tablet carvedilol 3.125 mg tablet 3.125 mg PO BID #180 tabs 04/15/22 04/15/22 Rx levothyroxine 75 mcg tablet 75 mcg PO QDAY #90 tabs 04/15/22 04/15/22 Rx (Synthroid) losartan 100 mg tablet 100 mg PO DAILY #90 tabs 04/15/22 04/15/22 Rx trazodone 50 mg tablet 50 mg PO BEDTIME #90 tabs 04/15/22 04/15/22 Rx Allergies Allergy/AdvReac Type Severity Reaction Status Date / Time ciprofloxacin [From CIPRO] Allergy Severe SWELLING Verified 04/15/22 10:58 IN HANDS, ARMS, LEGS AND FEET pantoprazole AdvReac Intermediate n/v, Verified 04/15/22 10:58 omeprazole okay Review of Systems Review of Systems ROS: Yes All systems reviewed with the patient and are negative except as otherwise documented Exam Vital Signs (past 8 hours): - 05/16/22 09:57 05/16/22 09:46 05/16/22 10:00 Temperature 97.8 F Pulse Rate 98 H 103 H Respiratory Rate 22 20 Blood Pressure 139/85 129/83 Pulse Oximetry 99 99 Oxygen Delivery Method Room Air 05/16/22 10:00 05/16/22 10:30 05/16/22 11:00 Temperature Pulse Rate 90 92 H 86 Respiratory Rate 24 22 23 Blood Pressure Pulse Oximetry 99 100 97 Oxygen Delivery Method 05/16/22 11:09 05/16/22 11:09 05/16/22 11:30 Temperature Pulse Rate 87 Respiratory Rate 24 Blood Pressure 158/89 H 160/87 H Pulse Oximetry 100 Oxygen Delivery Method 05/16/22 11:30 05/16/22 12:00 05/16/22 12:00 Temperature Pulse Rate 81 87 Respiratory Rate 20 20 Blood Pressure 142/83 H Pulse Oximetry 97 99 Oxygen Delivery Method 05/16/22 13:32 05/16/22 13:32 05/16/22 13:42 Temperature 97.7 F 98.0 F Pulse Rate 86 86 Respiratory Rate 18 26 H Blood Pressure 150/92 H 140/86 Pulse Oximetry 99 99 100 Oxygen Delivery Method Room Air Room Air Oxygen Delivery Method Room Air Extrem Other: left leg is shortened, painful with exam at the hip, brusing on the lateral aspect, skin intact. Leg/foot is well perfused and able to move toes. Objective Imaging hip x-ray: My impression: AP pelvis and lateral hip shows displaced, angulated, comminuted proximal femur intertrochanteric fracture. Labs Result Diagrams: 05/16/22 10:05 05/16/22 10:05 Labs: Laboratory Results - last 24 hr 05/16/22 05/16/22 05/16/22 10:05 10:05 10:05 WBC 8.1 RBC 3.25 L Hgb 11.5 L Hct 32.0 L MCV 98.3 MCH 35.3 H MCHC 35.9 RDW 13.5 Plt Count 209 Neut % (Auto) 71.7 Lymph % (Auto) 13.6 L [place] % (Auto) 14.2 H Eos % (Auto) 0.0 L Baso % (Auto) 0.5 Neut # (Auto) 5800 Lymph # (Auto) 1100 [place] # (Auto) 1200 H Eos # (Auto) 0 Baso # (Auto) 0 PT 13.1 H INR 1.1 APTT 27 Sodium 125 L Potassium 4.0 Chloride 88 L Carbon Dioxide 25 BUN 13 Creatinine 0.50 L Estimated GFR > 60 BUN/Creatinine Ratio 26.0 H Glucose 111 H Calcium 8.4 Total Bilirubin 3.3 H AST 66 H ALT 31 Alkaline Phosphatase 129 H Total Protein 7.6 Albumin 3.7 Globulin 3.9 Albumin/Globulin Ratio 0.9 L Lipase 165 Ethyl Alcohol < 10 SARS-CoV-2 (PCR) Blood Type Antibody Screen 05/16/22 05/16/22 11:00 11:45 WBC RBC Hgb Hct MCV MCH MCHC RDW Plt Count Neut % (Auto) Lymph % (Auto) [place] % (Auto) Eos % (Auto) Baso % (Auto) Neut # (Auto) Lymph # (Auto) [place] # (Auto) Eos # (Auto) Baso # (Auto) PT INR APTT Sodium Potassium Chloride Carbon Dioxide BUN Creatinine Estimated GFR BUN/Creatinine Ratio Glucose Calcium Total Bilirubin AST ALT Alkaline Phosphatase Total Protein Albumin Globulin Albumin/Globulin Ratio Lipase Ethyl Alcohol SARS-CoV-2 (PCR) Negative Blood Type A Positive Antibody Screen Negative Assessment & Plan Assessment & Plan narrative: Mr. Simpson is a 67 yo M with history of ground level fall sustaining displaced comminuted left femur intertrochanteric fracture likely due to alcohol intoxicat ion. Patient has been unable to bear weight due to severe pain to his left hip. After discussing risks and benefits of treatment options, patient elected to proceed with surgery treatment. Risks for surgery include but not limited to bleeding, infection, pain, hardware complication, additional fracture, malunion, non-union, need for additional surgery, blood clot in leg and lungs, heart attack, even . I scheduled him for emergent left femur ORIF with intramedullary nailing. Time Spent With Patient Critical Care time: I spent a total of [] minutes of critical care time on this patient's care today; this time is exclusive of procedural time.
--- NOTE | 2022-05-16 14:09 | PM.OP.1 ---
Operative Date/Time/Diagnoses Date of procedure: 05/16/22 Time of procedure: 14:00 Pre-op diagnosis: 1. Left femur intertrochanteric fracture Post-op diagnosis: same Procedure & Clinicians Procedure: 1. Left femur open reduction internal fixation via intramedullary nailing Same procedure as scheduled: Yes Indications: Mr. Simpson is a 67 yo M who fell 2 days ago and sustained a comminuted, angulated and displaced left femur intertrochanteric fracture. He is unable to bear weight today due to severe left hip pain. Risks of surgery was discussed. Patient is taken to the OR for emergent ORIF left femur via intramedullary device. Surgeon: Yevgeniy Skinner Click Yes if Unassisted: No Anesthesia Type: General Operative Notes Closure Type: primary Specimen(s): none sent Prosthetic devices, grafts, tissues, transplants, or devices: S&N cephalomedullary device with two proximal locking screws, short intramedullary nail Applied: catheter Estimated Blood Loss (mL): 100 Blood products transfused: none Procedure in detail: Patient was seen in the preoperative area. Risks and benefits of the surgery was discussed with the patient. Informed consent was obtained from the patient and placed in the chart. Surgical site was marked. Patient was taken to the operative room. General anesthesia was administered. Prophylactic antibiotic was given to the patient less than 30 min before the incision was made. Patient was placed into a supine position on the fracture table. Patient's hip was then prepped and draped in the sterile fashion. Time-out was performed at this time. Using the fracture table, a closed reduction maneuver was performed to the left proximal femur fracture. This was done by distracting internally rotating and adducting the left hip. After the fracture reduction was completed and confirmed with AP and lateral C-arm imaging, Patient's hip was then prepped and draped in the sterile fashion. The proximal portion of the fracture including the neck and the head of the femur was found to be in flexed position which was not able to be reduced via closed methods with traction and rotation and ABD duction. Patient has been ambulating on his left broken hip for the last 2 days. There was significant amount of hematoma intramuscularly and along his fascial plane deep to the subcutaneous layer. The hematoma was evacuated using suction and irrigation. A 3 in incision just proximal to the greater trochanter was made on the lateral aspect of the patient's hip. The fracture site was palpated until the fracture line was able to be identified. Jackson was inserted anterior to the femoral neck in order to reduce the fracture under x-ray guidance. The Jackson was maintained in intimate connection to bone and maintaining its position in order to prevent deviation from the bony plane. Traction was applied while the reduction maneuver was performed using the Jackson. X-ray confirmed good reduction of the femoral neck in the lateral and AP plane. Traction was let off and the fracture was able to maintain in its reduced position from bony contact. Starting guidewire was inserted through the incision onto the greater trochanter. The guidewire was driven into the intramedullary canal and confirmed with AP and lateral C-arm imaging. The canal opening Reamer was used to open the canal from the proximal to distal fashion. A 11 mm 130 degree nail was assembled on the back table and inserted into the mid intramedullary canal from a proximal distal fashion. The lateral targeting guide was used to place the cephalomedullary device by placing a lateral incision after targeting guide was used to measure the location of the incision. The fascia was incised in line with skin incision the targeting guide was inserted and docked onto the lateral aspect of the lateral cortex of the proximal femur and a guidewire was drilled through the lateral cortex into the femoral head through the femoral neck in the center location on both AP and lateral imaging. Depth gauge was used to measure the length of the cephalomedullary device a 95 mm cephalomedullary piece was chosen and placed through the lateral cortex into the femoral head through the IM nail. A 2nd proximal locking screw was placed using the drill guide. The 2nd screw was used in order to provide additional stability due to patient's grossly unstable and comminuted fracture. A distal locking screw was then placed using the same targeting guide after drilling in bicortical fashion. Depth gauge was used to measure the length. 35 mm screw was inserted. After all the hardware was placed, AP and lateral C-arm imaging was used to confirm placement of the hardware and reduction of the fracture. Good placement of the hardware and good reduction of the fracture was confirmed. The wound was then irrigated with sterile normal saline. The deep fascia was closed with 1-0 Vicryl, subcutaneous tissue was closed with 2-0 Vicryl and skin was closed with skin leti. Patient's leg length and rotation was found to be symmetric with the right leg at the end of the procedure after patient's dressing was applied. Patient's bilateral lower extremity was neurovascular intact after the procedure was completed. Sterile dressing was applied the patient's skin and patient was woken up from sedation and transferred to recovery room stable condition. Complications: none Post-operative Condition: stable Disposition: PACU Plan for aftercare: Admit to inpatient hospital
[2022-05-16] MEDS: CEFAZOLIN 2 GM/100 ML PREMIX 100 ML IV (14:30)
--- NOTE | 2022-05-16 15:09 | SUR.OPER ---
Supine on padded [place] table with right leg on padded well leg gonzalez and secured with gauze roll, left leg secured in padded positioning boot and suspended in positioning spar, operative leg in traction per surgeon. Head on one pillow. Arm on non-operative side secured on padded armboard <90 degrees abduction. Arm on operative side padded and resting across chest then secured with tape over sheet. Padded perineal post in place per surgeon.
[2022-05-16] MEDS: LACTATED RINGERS 1,000 ML 120 ML IV (17:40)
[2022-05-16 20:19] LABS: Hematocrit 29.6 % (41-53); Hemoglobin 10.4 g/dL (13.5-17.5)
[2022-05-16] MEDS: ASPIRIN EC 81 MG TABLET PO (20:38)
[2022-05-16] MEDS: DOCUSATE 100 MG CAPSULE PO (20:38)
[2022-05-16] MEDS: OXYCODONE IR 10 MG TABLET PO (20:51)
[2022-05-17 00:20] VITALS: BP 98/66; PULSE 108; RESP 14; TEMP 36.2; O2SAT 99
[2022-05-17] MEDS: LACTATED RINGERS 1,000 ML 120 ML IV (02:35)
--- NOTE | 2022-05-17 04:49 | PC.NURSE ---
Pt is cooperative w/ staff. CIWA has been staying at 4. Pt has noticable tremors in hands and states he has anxiety. Pt denies any hallucinations. Pt has been sleeping most of the night. Pt has seizure pads on bed and is leaning to left w/ head hanging forward. IV fluids & calderon is being continued per nurse discretion due to tea colored and about 250ml of urine during shift. At one point pt did ask nurse for a beer, a shot of crown, and some cigarettes. Rn educated pt that this is unavailable while in hospital.
[2022-05-17 05:25] VITALS: BP 118/64; PULSE 95; RESP 18; TEMP 36.6; O2SAT 98
[2022-05-17] MEDS: OXYCODONE IR 10 MG TABLET PO ×2 (05:48→18:36)
[2022-05-17 07:03] VITALS: BMI 22.9
--- NOTE | 2022-05-17 07:37 | P.PN_ITS ---
Subjective Subjective Date Patient Seen: 05/17/22 Time Patient Seen: 07:38 Interval history: Patient's pain is [id number]. Denies fever or chills. No nausea or vomiting. Patient states he lives alone. Exam Vital Signs (past 8 hours): - 05/17/22 00:20 05/17/22 05:25 Temperature 97.1 F L 97.9 F Pulse Rate 108 H 95 H Respiratory Rate 14 18 Blood Pressure 98/66 118/64 Pulse Oximetry 99 98 Oxygen Flow Rate 0 0 Oxygen Delivery Method Room Air Oxygen Flow Rate 0 Narrative Exam Narrative: 67-year-old male resting comfortably in bed in no apparent distress. Left hip dressing is clean, dry and intact. Motor functions intact bilateral lower extremities. Sensation is intact bilateral lower extremities. Const General: comfortable Orientation: alert Resp Effort & Inspection: normal respiratory effort and able to speak in complete sentences Objective Labs Result Diagrams: 05/16/22 19:51 05/16/22 10:05 Labs: Laboratory Results - last 24 hr 05/16/22 05/16/22 05/16/22 10:05 10:05 10:05 WBC 8.1 RBC 3.25 L Hgb 11.5 L Hct 32.0 L MCV 98.3 MCH 35.3 H MCHC 35.9 RDW 13.5 Plt Count 209 Neut % (Auto) 71.7 Lymph % (Auto) 13.6 L [place] % (Auto) 14.2 H Eos % (Auto) 0.0 L Baso % (Auto) 0.5 Neut # (Auto) 5800 Lymph # (Auto) 1100 [place] # (Auto) 1200 H Eos # (Auto) 0 Baso # (Auto) 0 PT 13.1 H INR 1.1 APTT 27 Sodium 125 L Potassium 4.0 Chloride 88 L Carbon Dioxide 25 BUN 13 Creatinine 0.50 L Estimated GFR > 60 BUN/Creatinine Ratio 26.0 H Glucose 111 H Calcium 8.4 Total Bilirubin 3.3 H AST 66 H ALT 31 Alkaline Phosphatase 129 H Total Protein 7.6 Albumin 3.7 Globulin 3.9 Albumin/Globulin Ratio 0.9 L Lipase 165 Ethyl Alcohol < 10 SARS-CoV-2 (PCR) Blood Type Antibody Screen 05/16/22 05/16/22 05/16/22 11:00 11:45 19:51 WBC RBC Hgb 10.4 L Hct 29.6 L MCV MCH MCHC RDW Plt Count Neut % (Auto) Lymph % (Auto) [place] % (Auto) Eos % (Auto) Baso % (Auto) Neut # (Auto) Lymph # (Auto) [place] # (Auto) Eos # (Auto) Baso # (Auto) PT INR APTT Sodium Potassium Chloride Carbon Dioxide BUN Creatinine Estimated GFR BUN/Creatinine Ratio Glucose Calcium Total Bilirubin AST ALT Alkaline Phosphatase Total Protein Albumin Globulin Albumin/Globulin Ratio Lipase Ethyl Alcohol SARS-CoV-2 (PCR) Negative Blood Type A Positive Antibody Screen Negative [facility] Medical History Alcohol dependence Alcoholism Anoxic brain injury Cardiomyopathy Cataracts, bilateral (2007) Chronic cough (1999) COPD (chronic obstructive pulmonary disease) Dislocated elbow (2000) Dislocated shoulder (2001) Eczema (2016) Elevated liver function tests Essential hypertension Fractures (~1963) GERD (gastroesophageal reflux disease) Hypothyroidism Impaired vision Paroxysmal atrial fibrillation Pulmonary nodule (~07/2019) Surgical History History of cataract removal with insertion of prosthetic lens History of nasal surgery (1963) History of repair of hiatal hernia Hx of hernia repair (1995) Family History Father History of arteriosclerotic cardiovascular disease History of emphysema Mother Cancer Grandfather No problems noted. Grandmother Stroke Grandfather No problems noted. Grandmother No problems noted. Social History household members: family and none Smoking Status: Current every day smoker Tobacco: How many years used: 22 quit status: not considering quitting second hand exposure: No alcohol intake: current substance use type: does not use Assessment & Plan Post-op Postoperative Procedures: Procedures Operation Date: 05/16/22 14:00 Actual Procedure Side Surgeon p Intramedullary Nailing Femur Left Yevgeniy Skinner MD Postoperative day: 1 Postoperative status: doing well Postoperative status narrative: Status post left femur open reduction internal fixation intramedullary nailing May 16, 2022 Postoperative plan: routine post-op care Postoperative plan narrative: Mobilize with physical therapy Multimodal pain management Disposition home versus retirement facility in 1-2 days.
--- NOTE | 2022-05-17 07:43 | P.PN_ITS ---
Subjective Subjective Date Patient Seen: 05/17/22 Time Patient Seen: 07:43 Interval history: Patient seen and evaluated this morning. Says his hip feels better than yesterday less pain. When asked if patient needs anything he said he would like beer in a cigarette. Patient lives at home frequent falls discharge plan to custodial facility for rehab. Eating well. No signs of acute alcohol withdrawal. Continue scheduled lorazepam. Exam Vital Signs (past 8 hours): - 05/17/22 00:20 05/17/22 05:25 Temperature 97.1 F L 97.9 F Pulse Rate 108 H 95 H Respiratory Rate 14 18 Blood Pressure 98/66 118/64 Pulse Oximetry 99 98 Oxygen Flow Rate 0 0 Oxygen Delivery Method Room Air Oxygen Flow Rate 0 Narrative Exam Narrative: Gen.: Alert aware tell appearing male uncapped HEENT: Pupils equal round and reactive or mucosa is moist neck is supple Cardio: S1-S2 regular rate and rhythm Respiratory: Lungs are clear no wheezes or crackles Abdomen: Soft nontender no rebound or guarding Extremities: Warm dry perfused incision clean dry and intact Objective Labs Result Diagrams: 05/16/22 19:51 05/16/22 10:05 Labs: Laboratory Results - last 24 hr 05/16/22 05/16/22 05/16/22 10:05 10:05 10:05 WBC 8.1 RBC 3.25 L Hgb 11.5 L Hct 32.0 L MCV 98.3 MCH 35.3 H MCHC 35.9 RDW 13.5 Plt Count 209 Neut % (Auto) 71.7 Lymph % (Auto) 13.6 L [place] % (Auto) 14.2 H Eos % (Auto) 0.0 L Baso % (Auto) 0.5 Neut # (Auto) 5800 Lymph # (Auto) 1100 [place] # (Auto) 1200 H Eos # (Auto) 0 Baso # (Auto) 0 PT 13.1 H INR 1.1 APTT 27 Sodium 125 L Potassium 4.0 Chloride 88 L Carbon Dioxide 25 BUN 13 Creatinine 0.50 L Estimated GFR > 60 BUN/Creatinine Ratio 26.0 H Glucose 111 H Calcium 8.4 Total Bilirubin 3.3 H AST 66 H ALT 31 Alkaline Phosphatase 129 H Total Protein 7.6 Albumin 3.7 Globulin 3.9 Albumin/Globulin Ratio 0.9 L Lipase 165 Ethyl Alcohol < 10 SARS-CoV-2 (PCR) Blood Type Antibody Screen 05/16/22 05/16/22 05/16/22 11:00 11:45 19:51 WBC RBC Hgb 10.4 L Hct 29.6 L MCV MCH MCHC RDW Plt Count Neut % (Auto) Lymph % (Auto) [place] % (Auto) Eos % (Auto) Baso % (Auto) Neut # (Auto) Lymph # (Auto) [place] # (Auto) Eos # (Auto) Baso # (Auto) PT INR APTT Sodium Potassium Chloride Carbon Dioxide BUN Creatinine Estimated GFR BUN/Creatinine Ratio Glucose Calcium Total Bilirubin AST ALT Alkaline Phosphatase Total Protein Albumin Globulin Albumin/Globulin Ratio Lipase Ethyl Alcohol SARS-CoV-2 (PCR) Negative Blood Type A Positive Antibody Screen Negative [facility] Medical History Alcohol dependence Alcoholism Anoxic brain injury Cardiomyopathy Cataracts, bilateral (2007) Chronic cough (1999) COPD (chronic obstructive pulmonary disease) Dislocated elbow (2000) Dislocated shoulder (2001) Eczema (2016) Elevated liver function tests Essential hypertension Fractures (~1963) GERD (gastroesophageal reflux disease) Hypothyroidism Impaired vision Paroxysmal atrial fibrillation Pulmonary nodule (~07/2019) Surgical History History of cataract removal with insertion of prosthetic lens History of nasal surgery (1963) History of repair of hiatal hernia Hx of hernia repair (1995) Family History Father History of arteriosclerotic cardiovascular disease History of emphysema Mother Cancer Grandfather No problems noted. Grandmother Stroke Grandfather No problems noted. Grandmother No problems noted. Social History household members: family and none Smoking Status: Current every day smoker Tobacco: How many years used: 22 quit status: not considering quitting second hand exposure: No alcohol intake: current substance use type: does not use Assessment & Plan Assessment and plan (1) Intertrochanteric fracture of left hip: Status: Acute Plan Postoperative day 1 left hip fracture management per Orthopedic surgery. Doing well from pain standpoint PT evaluation. Discharge plan to custodial facility. Alcohol misuse disorder with chronic alcoholism. Continue with vitamin B12 folic acid. Continue with scheduled lorazepam to prevent alcohol withdrawal hopefully this will work. Does not appear he has had significant withdrawal problems in the past Approximate stool atrial fibrillation normal sinus rhythm now not on anti coagulation. Continue to monitor heart rhythm during hospital stay. Cardiomyopathy continue with angiotensin receptor padmini beta-padmini will monitor closely fluid status he. Euvolemic at this time. Hyponatremia moderate chronic. Sodium levels low. Continue to provide normal saline liberalize salt in the diet restrict free water. Acute blood loss anemia due to surgery and hip fracture. Hemoglobin 10. Monitor closely with hemoglobin hematocrit Hypothyroidism. Continue with thyroid replacement DVT prophylaxis with SCDs postsurgery prophylaxis per Orthopedic surgery Time Spent With Patient Critical Care time: I spent a total of [] minutes of critical care time on this patient's care today; this time is exclusive of procedural time.
[2022-05-17 08:00] VITALS: BP 99/64; PULSE 96; RESP 17; TEMP 36.7; O2SAT 99
--- NOTE | 2022-05-17 08:25 | CM.DANOTE ---
Addendum entered by Tiffanie Key R.N. 05/17/22 15:25: Mady at [facility] has received updated P.T. notes, and she has submitted auth through patient's [facility]. Will follow up in the am, and will complete PASSR. Addendum entered by Tiffanie Key R.N. 05/17/22 12:33: Mady at [facility] stated that she can accept patient, and January at [facility] can as well. As soon as P.T. notes are completed, will fax them over to her so she can start auth. Asked Mady if she can take patient, and indicated, will depend if she can get the therapy notes in time. As soon as notes are in will fax over to [facility]. Addendum entered by Tiffanie Key R.N. 05/17/22 11:02: Kenia Enamorado, patient's [facility] manager of case called back. She confirmed that his Medicaid application for [facility] care was just received today, and will need to be processed. She also indicated that she can't do his assessment until May. She did say that if patient goes to rehab, to update her, since there would be another ENDORSEMENT CLERK on his case, since she has sent her clients to skilled facilities before, such as [facility]. Will update her when it is known of facility of acceptance. Addendum entered by Tiffanie Key R.N. 05/17/22 10:26: Spoke to Mady in admissions at [facility], confirmed that she has two beds left for admission. Faxed her over the referral, and let her know about patient. Did also let her know that this DC Caddymaster will fax over P.T. notes when completed. Spoke to Grace at [facility] as back up, and she will review. Will see if either places can accept, and will try a third if not able, should know by today. Addendum entered by Tiffanie Key R.N. 05/17/22 09:36: Left [facility] Aquino manager of case a message to call this DC Caddymaster back. P.T is asking if O.T. would be appropriate, will have to consult with provider. Addendum entered by Tiffanie Key R.N. 05/17/22 09:24: Called [facility] and Montse indicated that patient's [employer] manager of case will be Kenia Enamorado. Her phone number is: [phone]. She will do initial intake to see what patient qualifies for. Will contact her. Gregory Sorensen, from [facility] came by the care management. He is quite familiar with patient. States guru patient drinks most of the day, he has found him on the floor at times, and his place is not very clean. Asked him if he had contacted [employer], and he stated that he contacted them on . Asked him if he knows who is supplying patient's alcohol, since patient is not driving, and stated, he's not sure at this time who is. Patient does get Meals on Wheels. Will work at this time on getting patient to skilled under his insurance for rehab. Will also contact [employer] Aquino manager of case. Addendum entered by Tiffanie Key R.N. 05/17/22 09:13: Went over some of the reviews on the ipad regarding facilities. Patient indicated, if he needs skilled, he would like [facility] as first choice, the staff were very nice, [facility] second, and [facility] would be his third choice. Original Note: Case received, EMR reviewed and met with patient. Introduced self and role. Was able to obtain information regarding patient's baseline activity status prior to his admission, as well as his current living situation. Patient has also been here before, and care management is familiar with patient. DCP assessment completed with information currently available. Patient is a 67 year old male who admitted yesterday afternoon to the care of the hospitalist team. PCP: Dr. Wyman. Payer: confirmed: [facility] MCR/Medicaid. Patient came to the hospital via ambulance secondary to a ground level fall that occurred at his home. Patient has history of alcohol abuse, and according to notes, has had multiple falls most likely related to his alcohol use. Patient had fallen on Tuesday, lost his balance landing on his left hip. Notes also indicate, he had pain in his hip, but was able to walk on it afterwords, but pain continued to increase. He was diagnosed with intertrochanteric left femoral fracture. Patient had his surgery yesterday with Dr. Skinner. Met with patient in his room. He is pleasant, was sitting up having his breakfast. He resides here in [place] alone. He uses a FWW at his baseline, does drink beer, does not indicate the amount. He does not drive, uses Dial-a-ride. He has a brother named Nicko, who lives in [place], as main contact. According to previous admission, ENDORSEMENT CLERK had indicated that secondary to frequent falls, Gregory Whelan, who is in the [facility] program, has become involved, is familiar with patient. Notes indicated that Gregory was to help patient fill out a [employer] application for caregivers. Asked patient about this, and he had not heard back. This DC Caddymaster can follow up and call [facility] to see if a [facility] application through [facility] was completed, and if a MELCHOR caregiver was assigned. If not, this DC Caddymaster can submit a new application. Patient has not worked with P.T. as of yet. Mentioned group home facilities, and he mentioned that he has been to [facility], and like it. He has also been to [facility]. Let him know that this DC Caddymaster can bring in ipad showing reviews of facilities. He also has [employer], and auth for his insurance will be needed. P: DCP to continue to follow. Will meet again with patient and discuss skilled facilities, should he need this. He will also need P.T. notes so that the accepting facility can submit for auth. Will also follow up with [facility] St[facility] Treating Assistant Tiffanie Key RN/Technical Assistant Discharge Planning/Care Management Discharge Assessment Start: 05/17/22 08:20 Freq: Status: Active Protocol: Document 05/17/22 08:21 (Rec: 05/17/22 08:25 [id number]) Discharge Planning Assessment Assigned Sil[facility] Conditioner Tiffanie Key RN/Technical Assistant Advance Directives? No Advance Directives on File No History Provided By Patient,Medical Record Prior Living Arrangements Apartment/Condo Household Members family,none Comment Patient indicated that he uses Dial a Ride, has an active license, but no longer drive. Independent with ADL's Yes Is patient alert and oriented? Yes Needs Assistance With Home Chores / Shopping Caregiver for Another No DME Already Rented / Owned FWW / Walker Barriers to Discharge Yes Comment .Alcohol use, frequent falls, Discharge Plan Fpc Facility Transportation Arrangement facility Referrals Initiated Other Additional Comment Had a brief discussion regarding skilled faciities, will bring in ipad, has not yet worked with Brie Conner Updated in Patient Room with Yes name and ext. # of Silk Conditioner Review Status In Process Next Review Type Continued Stay Review
[2022-05-17] MEDS: DOCUSATE 100 MG CAPSULE PO ×2 (09:46→20:08)
[2022-05-17] MEDS: diazePAM 5 MG TABLET PO ×3 (09:46→20:08)
[2022-05-17] MEDS: MULTIVITAMIN 1 TABLET 1 TAB PO (09:46)
[2022-05-17] MEDS: ASPIRIN EC 81 MG TABLET PO ×2 (09:46→20:08)
[2022-05-17] MEDS: NICOTINE 14 PATCH 14 MG TOP (09:47)
[2022-05-17] MEDS: THIAMINE 100 MG TABLET PO (09:47)
[2022-05-17] MEDS: FOLIC ACID 1 MG TABLET PO (09:47)
--- NOTE | 2022-05-17 11:03 | PC.RNWOUND ---
Patient resting in bed, turns to side with assist for inspection of sacrogluteal area, blanchable pink skin noted to bilateral buttocks,sacrum. Sacral dressing is applied for protection, patient positioned in 30 degree tilt to left side with legs out straight and heels floated off bed surface, pillows between legs. There is a 2.5 x 3.5 x 0.1cm open abrasion to right knee with a small amount of serosanguineous drainage noted to pillowcase, also an adjacent 1 x 1cm abrasion with no drainage noted. These wounds are gently cleansed with saline and a large band-aid applied, patient denies pain to these wounds. There are multiple areas of abrasions and bruising to body visible at this time- around left greater trochanter area, right lateral thoracic area, left lateral foot/heel, right foot abrasions. Patient says he has been falling a lot, does not seem to reposition self in bed, requires two assist to reposition, placed on turn schedule, tolerates cares well and without complaint.
--- NOTE | 2022-05-17 11:45 | PT.IIE ---
Addendum entered and electronically signed by Peggy Vargas, PT 05/17/22 12:59: Nursing reports skin concerns. Consider waffle cushion when repositioning at next visit. Original Note: Current Diagnoses Hypo-osmolality and hyponatremia (05/16/22) Alcohol abuse, uncomplicated (05/16/22) Displaced intertrochanteric fracture of left femur, initial encounter for closed fracture (05/16/22) Unspecified fall, initial encounter (05/16/22) Surgery Performed Operation Date: 05/16/22 14:00 Actual Procedures p Intramedullary Nailing Femur(Left) - Yevgeniy Skinner MD Surgical History (Last Reviewed 05/17/22 @ 07:38 by Joaquin Holloway PA-C) History of cataract removal with insertion of prosthetic lens History of nasal surgery (1963) History of repair of hiatal hernia Hx of hernia repair (1995) Medical History (Last Reviewed 05/17/22 @ 07:38 by Joaquin Holloway PA-C) Alcohol dependence Alcoholism Anoxic brain injury Cardiomyopathy Cataracts, bilateral (2007) Chronic cough (1999) COPD (chronic obstructive pulmonary disease) Dislocated elbow (2000) Dislocated shoulder (2001) Eczema (2016) Elevated liver function tests Essential hypertension Fractures (~1963) GERD (gastroesophageal reflux disease) Hypothyroidism Impaired vision Paroxysmal atrial fibrillation Pulmonary nodule (~07/2019) Physical Therapy Inpatient Evaluation/Re-Eval M1 PT/OT-IP Prior Functional Status Start: 05/17/22 08:24 Freq: NEEDED Status: Active Protocol: Document 05/17/22 11:58 CGR (Rec: 05/17/22 12:12 CGR [id number]) Medical Review Prior Functional Status Medical History Reviewed Yes Communication Pt is an effective verbal communicator but is slightly [place]. Mobility and Gait Pt states that he used a 4ww for most mobility but has regular falls and is limited on distance. Activities of Daily Living and IADL's Pt was IND for ADLs but states that he was having increasing difficulty with bathing, meal prep (warming up food from meals on wheels), dressing, etc Pt states that his brother will sometimes assist him. He gets cigarettes and beer from his brother or his neighbor and his neighbor will sometimes take him to the store. Social History Household Members family,none Living Arrangements Apartment/Condo Number of Floors (Floors) Two Floors Number of Stairs To Enter/Railing? elevator Home Environment Standard Height Toilet,Walk in Shower Home Equipment Four Wheel Walker,Manual Wheelchair,Grab Bars Near Toilet,Grab Bars In Shower Additional Social History Comment Pt's brother Nicko lives in [place] [id number] PT/OT-IP Prior Functional Status Start: 05/17/22 11:58 Freq: NEEDED Status: Active Protocol: Document 05/17/22 11:58 CGR (Rec: 05/17/22 12:12 CGR [id number]) Medical Review Prior Functional Status Medical History Reviewed Yes Communication Pt is an effective verbal communicator but is slightly [place]. Mobility and Gait Pt states that he used a 4ww for most mobility but has regular falls and is limited on distance. Activities of Daily Living and IADL's Pt was IND for ADLs but states that he was having increasing difficulty with bathing, meal prep (warming up food from meals on wheels), dressing, etc Pt states that his brother will sometimes assist him. He gets cigarettes and beer from his brother or his neighbor and his neighbor will sometimes take him to the store. Social History Household Members family,none Living Arrangements Apartment/Condo Number of Floors (Floors) Two Floors Number of Stairs To Enter/Railing? elevator Home Environment Standard Height Toilet,Walk in Shower Home Equipment Four Wheel Walker,Manual Wheelchair,Grab Bars Near Toilet,Grab Bars In Shower Additional Social History Comment Pt's brother Nicko lives in [place] M2 PT-IP Current Condition Start: 05/17/22 08:24 Freq: NEEDED Status: Active Protocol: Document 05/17/22 11:45 AW (Rec: 05/17/22 12:52 AW [id number]) Physical Therapy Current Condition Current Condition Evaluation Date 05/17/22 Treatment Diagnosis L femur fx s/p ORIF Onset Date 05/14/22 M3 PT-IP Subjective Start: 05/17/22 08:24 Freq: NEEDED Status: Active Protocol: Document 05/17/22 11:45 AW (Rec: 05/17/22 12:52 AW [id number]) Subjective Physical Therapy Visit Type Type Initial Evaluation Visit Start Time 11:15 Visit Stop Time 11:45 Total Visit Minutes 30 Notes Co-tx with OT due to need for high level of assist. Tinetti score 13/28 ~2 months ago indicates high falls risk which is substantiated by history. Physical Therapy Visit Comments Patient Comments I don't think I'm going to be able to stand. Therapy Pain Assessment Pain When Pain Assessed At Rest Pain Present Pain Present Pain Reported Location Left hip and leg Intensity 6 Scale Used Numeric (0 - 10) Pain Management Techniques Apply Cold,Distraction, Modification of Treatment,Re- positioning M4 PT-IP Mobility and Gait Start: 05/17/22 08:24 Freq: NEEDED Status: Active Protocol: Document 05/17/22 11:45 AW (Rec: 05/17/22 12:52 AW [id number]) PT-Bed Mobility Assessment Supine to Sit Supine to Sit Maximum Assistance,1 Person Assistance,Head of Bed Elevated,Bedrails Scooting Scooting to Edge of Bed Maximum Assistance PT-Transfer Assessment Sit to and From Stand Sit to and from Stand Maximum Assistance,Total Assistance,2 Person Assistance Equipment Transfer Assistive Device Gait Belt,Front Wheeled Walker Orthotic/Prosthetic Devices or Brace: No Transfers Transfer Destination Chair Transfer Technique sit<>stand Transfer Ability Level of Assist Maximum Assistance,Total Assistance,2 Person Assistance ,Use of Upper Extremities Comments Mobility Comments Pt was lying in bed as PT arrived. He needed mod A to move legs toward right side of the bed and then max A to rotate toward EOB. Once sitting, he needed max A to scoot to EOB for feet flat on the floor. He did participate by using UEs to pull on bed cane and chair arm. Pt leaned to the right initially in sitting was was able to sit more midline in response to cues. PT educated pt on 30# PWB LLE and pt verbalized understanding. Attempted to educate pt for pivoting on RLE to transfer with FWW but pt had difficulty focusing. Pt was agreeable to attempt standing. With max A x 2, pt was able to stand but with strong retro lean. He stood ~ 30 seconds before requesting to sit on the bed. On second attempt, OT raised the bed slightly to give pt an advantage. He stood for ~20 seconds with poor right quad activation and abducted RLE. Pt was unable to shift weight toward the right to improve WB adherence and COG over ALFRED. He sat again with max A to control descent. RN and MANUFACTURING ENGINEERING INTERN arrived to assist. Pt was able to stand again max A x 2 with PT foot under pt's LLE to assess weightbearing. RN and MANUFACTURING ENGINEERING INTERN moved the bed and brought the chair into position for pt to sit. Max A x 2 for controlled descent to the chair. Pt was able to assist with positioning on the chair and agreed to sit up. Left pt with OT. Gait Assessment Comments Gait Comments Pt unable to maintain 30# PWB LLE and therefore unsafe for ambulation at this time. PT-Balance Assessment Sitting Balance and Reactions Static Sitting Balance Ability Fair Dynamic Sitting Balance Ability Poor Standing Balance and Reactions Static Standing Balance Ability Poor Dynamic Standing Balance Ability Poor Device Used FWW M5 PT-IP Objective Assessments Start: 05/17/22 08:24 Freq: NEEDED Status: Active Protocol: Document 05/17/22 11:45 AW (Rec: 05/17/22 12:52 AW [id number]) Orientation Orientation/Cognition Level of Alertness Alert Orientation Name,Date,Situation Safety Awareness Decreased Safety Awareness Comments Pt has flat affect but does communicate his needs. Gross Range of Motion Upper Extremity ROM Assessment Within Functional Limits Lower Extremity ROM Assessment Left Impaired Strength Upper Extremity Strength Assessment Bilaterally Impaired Lower Extremity Strength Assessment Bilaterally Impaired Hip R 3+/5; L 3-/5 Knee R 4-/5; L 3+/5 Comments Strength Comments BUE grossly ~4/5 Coordination Assessment Gross Coordination Gross Coordination Impaired Assessment Coordination Comments LLE coodination was impaired and ataxic in nature on assessment 03/16/22. Sensation Assessment Sensation Gross Sensation WNL Muscle Tone Muscle Tone WNL Yes M6 PT-IP Treatment Start: 05/17/22 08:24 Freq: NEEDED Status: Active Protocol: Document 05/17/22 11:45 AW (Rec: 05/17/22 12:52 AW [id number]) Physical Therapy Treatment Education Education Provided Weight Bearing Status,Post-Op Packet,Safety M7 PT-IP Assessment and Plan Start: 05/17/22 08:24 Freq: NEEDED Status: Active Protocol: Document 05/17/22 11:45 AW (Rec: 05/17/22 12:52 AW [id number]) PT Summary Assessment and Plan Potential Rehabilitation Potential Fair Status of Condition at Evaluation Evolving Summary Assessment Summary Chidi is a 67 yo man seen for PT evaluation on POD1 following ORIF for left femur fracture. He lives alone and typically mobilizes limited distances with 4WW. He falls regularly. Post-operatively, his weightbearing status is 30 # PWB LLE. Functionally, he needs max assist for bed mobility and max to total assist x 2 for sit to stand transfer with FWW. He is unable to maintain his PWB status in standing. He will require SNF rehab when medically stable for discharge . Goals Bed Mobility Goal Minimal Assistance Transfer Goal Minimal Assistance,Front Wheeled Walker Gait Goal Minimal Assistance,Front Wheel Walker Gait Distance 5 Days to Meet Goals 10 Frequency of Treatment Frequency Of Treatment Twice a Day Treatment Plan Physical Therapy Treatment Plan Bed Mobility Training,Transfer Training,Gait Training, Therapeutic Exercise,Balance Retraining,Post Op Education, Discharge Planning,Hot or Cold Pack,Neuromuscular Re-ed, Coordination Retraining,Manual Therapy Other Recommendations and Next Treatment reinforce WB status; sit to Focus stand with FWW; ther ex for LE strength Weight Bearing Status Weight Bearing Status Partial Weight Bearing Allowed Weight Bearing Amount (enter % 30# max PWB LLE or #) (%) Recommendations To Nursing Amount of Assist Needed Mechanical Lift Discharge Recommendations PT Discharge Recommendations SNF Rehab Transportation Needs at Discharge Wheelchair/Cabulance
--- NOTE | 2022-05-17 11:58 | OT.IP.EVAL ---
Current Diagnoses Hypo-osmolality and hyponatremia (05/16/22) Alcohol abuse, uncomplicated (05/16/22) Displaced intertrochanteric fracture of left femur, initial encounter for closed fracture (05/16/22) Unspecified fall, initial encounter (05/16/22) Surgery Performed Operation Date: 05/16/22 14:00 Actual Procedures p Intramedullary Nailing Femur(Left) - Yevgeniy Skinner MD Past Medical History (Last Reviewed 05/17/22 @ 07:38 by Joaquin Holloway PA-C) Alcohol dependence Alcoholism Anoxic brain injury Cardiomyopathy Cataracts, bilateral (2007) Chronic cough (1999) COPD (chronic obstructive pulmonary disease) Dislocated elbow (2000) Dislocated shoulder (2001) Eczema (2017) Elevated liver function tests Essential hypertension Fractures (~1963) GERD (gastroesophageal reflux disease) Hypothyroidism Impaired vision Paroxysmal atrial fibrillation Pulmonary nodule (~07/2019) Surgical History (Last Reviewed 05/17/22 @ 07:38 by Joaquin Holloway PA-C) History of cataract removal with insertion of prosthetic lens History of nasal surgery (1963) History of repair of hiatal hernia Hx of hernia repair (1995) Occupational Therapy Inpatient Evaluation/Re-Eval M1 PT/OT-IP Prior Functional Status Start: 05/17/22 08:24 Freq: NEEDED Status: Active Protocol: Document 05/17/22 11:58 CGR (Rec: 05/17/22 12:12 CGR [id number]) Medical Review Prior Functional Status Medical History Reviewed Yes Communication Pt is an effective verbal communicator but is slightly [place]. Mobility and Gait Pt states that he used a 4ww for most mobility but has regular falls and is limited on distance. Activities of Daily Living and IADL's Pt was IND for ADLs but states that he was having increasing difficulty with bathing, meal prep (warming up food from meals on wheels), dressing, etc Pt states that his brother will sometimes assist him. He gets cigarettes and beer from his brother or his neighbor and his neighbor will sometimes take him to the store. Social History Household Members family,none Living Arrangements Apartment/Condo Number of Floors (Floors) Two Floors Number of Stairs To Enter/Railing? elevator Home Environment Standard Height Toilet,Walk in Shower Home Equipment Four Wheel Walker,Manual Wheelchair,Grab Bars Near Toilet,Grab Bars In Shower Additional Social History Comment Pt's brother Nicko lives in [place] M1 PT/OT-IP Prior Functional Status Start: 05/17/22 11:58 Freq: NEEDED Status: Active Protocol: Document 05/17/22 11:58 CGR (Rec: 05/17/22 12:12 CGR [id number]) Medical Review Prior Functional Status Medical History Reviewed Yes Communication Pt is an effective verbal communicator but is slightly RED CL[place]. Mobility and Gait Pt states that he used a 4ww for most mobility but has regular falls and is limited on distance. Activities of Daily Living and IADL's Pt was IND for ADLs but states that he was having increasing difficulty with bathing, meal prep (warming up food from meals on wheels), dressing, etc Pt states that his brother will sometimes assist him. He gets cigarettes and beer from his brother or his neighbor and his neighbor will sometimes take him to the store. Social History Household Members family,none Living Arrangements Apartment/Condo Number of Floors (Floors) Two Floors Number of Stairs To Enter/Railing? elevator Home Environment Standard Height Toilet,Walk in Shower Home Equipment Four Wheel Walker,Manual Wheelchair,Grab Bars Near Toilet,Grab Bars In Shower Additional Social History Comment Pt's brother Nicko lives in [place] M2 OT-IP Current Condition Start: 05/17/22 11:58 Freq: Status: Active Protocol: Document 05/17/22 11:58 CGR (Rec: 05/17/22 12:12 CGR [id number]) Occupational Therapy Current Condition Current Condition Evaluation Date 05/17/22 Treatment Diagnosis Fall with L hip fx. now s/p ORIF and IM nailing Diagnosis Onset Date 05/16/22 Weight Bearing Status Weight Bearing Status Partial Weight Bearing Allowed Weight Bearing Amount (enter % 30 lbs to the LLE or #) (%) M3 OT- IP Subjective and Pain Start: 05/17/22 11:58 Freq: Status: Active Protocol: Document 05/17/22 11:58 CGR (Rec: 05/17/22 12:12 CGR [id number]) OT- Subjective Occupational Therapy Visit Type Type Initial Evaluation Visit Start Time 11:15 Visit Stop Time 11:58 Total Visit Minutes 43 Notes Partial co-treat with p.t. OT Pain Assessment Pain When Pain Assessed At Rest Pain Present Pain Present Pain Reported Location Left hip and leg Intensity 6 Scale Used Numeric (0 - 10) Management Techniques Distraction,Modification of Treatment,Re-positioning, Timing of Activity with Medications M4 OT- IP ADL's Start: 05/17/22 11:58 Freq: Status: Active Protocol: Document 05/17/22 11:58 CGR (Rec: 05/17/22 12:12 CGR [id number]) OT [id number] Comments OT Self-Feeding Comments not meal time OT ADL-Grooming General Evaluation Grooming Ability Standby Assistance Areas Needing Assistance Face Washing Comments OT Grooming Comments seated in chair with set up OT ADL-Oral Care General Eval Oral Care Ability Standby Assistance Areas of Assistance Brushing Teeth Comments Oral Care Comments seated in chair with set up OT ADL-Dressing General Eval Lower Body Dressing Ability Total Assistance Areas Needing Assistance Socks OT ADL-Toileting General Evaluation Toileting Ability Total Assistance Comments OT Toileting Comments pt with yumiko OT ADL-Bathing Comments OT Bathing Comments not performed on this date M5 OT- IP IADL's Start: 05/17/22 11:58 Freq: Status: Active Protocol: Document 05/17/22 11:58 CGR (Rec: 05/17/22 12:12 CGR [id number]) OT-Instrumental Activities of Daily Living Deficits IADL Deficits Identified No Deficits Home Safety Awareness Awareness of Need for Assistance at Home Good Awareness Ability to Problem Solve Emergency Able to Problem Solve Situations Medication Management Medication Management No Deficits Identified Money Management Money Management No Deficits Identified Meal Preparation Meal Preparation Comments Pt reports increasing difficulty in performing this task Outplacement Consultant Outplacement Consultant Comments Pt reports increasing difficulty in performing this task Driving Driving Comments Pt does not drive M6 OT- IP Functional Cognition Start: 05/17/22 11:58 Freq: Status: Active Protocol: Document 05/17/22 11:58 CGR (Rec: 05/17/22 12:12 CGR [id number]) Cognitive Factors Limiting Selfcare Function Cognitive Ability Level of Alertness Alert Patient Orientation Name,Age,Birthday,Month,Date, Year,Day of Week,Place, Situation Attention Span Ability Capable of Focused Attention, Capable of Sustained Attention Cognitive Comments Cognitive Assessment Comments PT may benefit from formal cog assessment. OT- Vision and Hearing OT- Hearing Assessment OT- Hearing Assessment Hearing Impaired OT- Vision Assessment Visual Acuity Glasses For Reading Visual Attentiveness WFL Occular Pursuits WFL M7 OT- IP Mobility and Balance Start: 05/17/22 11:58 Freq: Status: Active Protocol: Document 05/17/22 11:58 CGR (Rec: 05/17/22 12:12 CGR [id number]) OT- Bed Mobility Assessment Supine to Sit Supine to Sit Assist Maximum Assistance,1 Person Assistance Scooting Scooting to Edge of Bed Maximum Assistance,1 Person Assistance OT-Transfer Assessment Sit to and From Stand Sit to and from Stand Maximum Assistance,2 Person Assistance Transfers Transfer Ability Maximum Assistance,2 Person Assistance Technique Transfer Destination Bed,Chair Transfer Technique bed/chair switch with pt standing Devices Transfer Assistive Devices Gait Belt,Front Wheeled Walker Comments Mobility Comments Pt was able to perform sit to stand x 3. Upon 3rd sit to stand, bed was removed and chair replaced behind pt. OT- Gait Assessment Comments Gait Ability Comments not performed OT- Balance Assessment Sitting Balance and Reactions Static Sitting Balance Ability Fair Dynamic Sitting Balance Ability Fair M8 OT- IP Objective Assessments Start: 05/17/22 11:58 Freq: Status: Active Protocol: Document 05/17/22 11:58 CGR (Rec: 05/17/22 12:12 CGR [id number]) OT Gross Range of Motion Upper Extremity Range of Motion Assessment Within Functional Limits OT Strength Upper Extremity Strength Assessment Within Functional Limits Comments Strength Comments grossly 4 to 4+/5 OT- Coordination Assessment Upper Extremity Finger to Nose Test Within Functional Limits Finger Tapping Test Within Functional Limits OT-Muscle Tone Assessment Muscle Tone WNL Yes OT Sensation Assessment Edema Edema Absent M9 OT- IP Assessment and Plan Start: 05/17/22 11:58 Freq: Status: Active Protocol: Document 05/17/22 11:58 CGR (Rec: 05/17/22 12:12 CGR [id number]) OT Summary Assessment and Plan Potential Rehabilitation Potential Good Analytic Complexity at Evaluation Moderate Summary OT Impairments Pain,Strength,Balance, Functional Mobility,Grooming, Dressing,Toileting,Bathing, Toilet Transfers,Shower Transfers,Activity Tolerance Progress Towards Goals Slow Progress due to Pain Assessment Summary Pt presents as a moderate complexity evaluation s/p admit for fall with L hip fx. Pt underwent 05/16/22 ORIF with IM nailing and is now PWB of 30#. Pt was able to stand x3 with 2 person max a but unable to routinely maintain is 30# wb status. Pt will need SNF upon discharge. Goals Grooming Goal Independent Dressing Goal Independent Toileting Goal Independent Bathing Goal Independent Toilet Transfer Goal Independent Shower Transfer Goal Independent Days to Meet Goals 30 Frequency of Treatment Frequency Of Treatment Once a Day Treatment Plan OT Treatment Plan ADL Training,Functional Cognition Training,Functional Mobility,Patient/Family Education,Discharge Planning Other Treatment Recommendations and Next cog assessment Treatment Focus Discharge Recommendations OT Discharge Recommendations SNF Rehab Transportation Needs at Discharge Wheelchair/Cabulance
[2022-05-17 12:00] VITALS: BP 112/69; PULSE 96; RESP 18; TEMP 36.8; O2SAT 96
--- NOTE | 2022-05-17 12:17 | PC.NURSE ---
Addendum entered by Lyly Mendoza R.N. 05/17/22 14:52: Patient back to bed after sitting up in chair. He is lying on his left side, calderon putting out kelli colored urine. He is drinking fluids and resting comfortably now. Original Note: Assess- Patient is alert and oriented. He has multiple skin issues that can be seen under physical assessment. Patients CIWA is O at this time. He is not anxious, agitated, or fidgety. No sweating, visual disturbance or tremors. He is forgetful but pleasant with care. Patient is a 2/4 person max assist to transfer to the chair. His dressing to l.hip is cdi and calderon is putting out straw colored urine.
--- NOTE | 2022-05-17 14:40 | PT.IPTN ---
Addendum entered and electronically signed by Dipti Riggins, ANNABELLE 05/17/22 16:00: Vitals take in chair before mobility: BP 116/76 HR 84 bpm. Original Note: Current Diagnoses Hypo-osmolality and hyponatremia (05/16/22) Alcohol abuse, uncomplicated (05/16/22) Displaced intertrochanteric fracture of left femur, initial encounter for closed fracture (05/16/22) Unspecified fall, initial encounter (05/16/22) Surgery Performed Operation Date: 05/16/22 14:00 Actual Procedures p Intramedullary Nailing Femur(Left) - Yevgeniy Skinner MD Physical Therapy Treatment Note M2 PT-IP Current Condition Start: 05/17/22 08:24 Freq: NEEDED Status: Active Protocol: Document 05/17/22 14:13 SP (Rec: 05/17/22 15:59 SP [id number]) Physical Therapy Current Condition Current Condition Evaluation Date 05/17/22 Treatment Diagnosis L femur fx s/p ORIF Onset Date 05/14/22 M3 PT-IP Subjective Start: 05/17/22 08:24 Freq: NEEDED Status: Active Protocol: Document 05/17/22 14:13 SP (Rec: 05/17/22 15:59 SP [id number]) Subjective Physical Therapy Visit Type Type Treatment Note Visit Start Time 14:13 Visit Stop Time 14:40 Total Visit Minutes 27 Notes Nursing x2 and PT in room to assist during tx. Number of INSTRUCTOR TRAINER CANINE SERVICE Visits 1 Physical Therapy Visit Comments Patient Comments I agreeable to assess slide board transfer for increased independence. Patient Goals Go to rehab to get stronger before returning home. Therapy Pain Assessment Pain When Pain Assessed During Mobility Pain Present Pain Present Pain Reported Location Left hip and leg Intensity 6 Scale Used Numeric (0 - 10) Pain Behaviors Facial Grimacing,Restlessness Pain Management Techniques Distraction,Modification of Treatment,Re-positioning, Timing of Activity with Medications M4 PT-IP Mobility and Gait Start: 05/17/22 08:24 Freq: NEEDED Status: Active Protocol: Document 05/17/22 14:13 SP (Rec: 05/17/22 15:59 SP [id number]) PT-Bed Mobility Assessment Scooting Scooting to Edge of Bed Maximum Assistance PT-Transfer Assessment Equipment Transfer Assistive Device Gait Belt,Sliding Board Orthotic/Prosthetic Devices or Brace: No Transfers Transfer Destination Bed Transfer Technique Lateral Scoot across slide board Transfer Ability Level of Assist Maximum Assistance,2 Person Assistance Comments Mobility Comments Pt able to scoot to EOchair BUE, ed for <= 30lbs WB on LLE . INSTRUCTOR TRAINER CANINE SERVICE placed slide board under R hip, ed for sequencing BUE/ RLE/trunk scoot. Pt difficulty understanding, Max A x2 (INSTRUCTOR TRAINER CANINE SERVICE/ PT) demonstrated squat pivot chair>bed not maintaining 30# on LLE , once at EOB, was able to lateral scoot up EOB pt BUE on bed and WB RLE and INSTRUCTOR TRAINER [employer]INE SERVICE providing Max Ax1 and contact under RLE thigh and cues for almost not weight into RLE, able to maintain. sit>supine Mod A x1 for BLEs into bed while pt used bed rail upper body support. LR R and L Max Ax1 and MOUNTER AUTOMATIC completed pericare and brief change, applied waffle cushion under sacrum for skin integrity support healing. Pt was laying modify sidelying via nursing pillows placed between BLEs all needs and call light in reach before left. Gait Assessment Comments Gait Comments Pt unable to maintain 30# PWB LLE and therefore unsafe for ambulation at this time. PT-Balance Assessment Sitting Balance and Reactions Static Sitting Balance Ability Fair Dynamic Sitting Balance Ability Fair Comments Other Balance Tests/Deviations/Treatment squat pivot/slide board : transfers only. Max Ax2 M5 PT-IP Objective Assessments Start: 05/17/22 08:24 Freq: NEEDED Status: Active Protocol: Document 05/17/22 11:45 AW (Rec: 05/17/22 12:52 AW [id number]) Orientation Orientation/Cognition Level of Alertness Alert Orientation Name,Date,Situation Safety Awareness Decreased Safety Awareness Comments Pt has flat affect but does communicate his needs. Gross Range of Motion Upper Extremity ROM Assessment Within Functional Limits Lower Extremity ROM Assessment Left Impaired Strength Upper Extremity Strength Assessment Bilaterally Impaired Lower Extremity Strength Assessment Bilaterally Impaired Hip R 3+/5; L 3-/5 Knee R 4-/5; L 3+/5 Comments Strength Comments BUE grossly ~4/5 Coordination Assessment Gross Coordination Gross Coordination Impaired Assessment Coordination Comments LLE coodination was impaired and ataxic in nature on assessment 03/16/22. Sensation Assessment Sensation Gross Sensation WNL Muscle Tone Muscle Tone WNL Yes M6 PT-IP Treatment Start: 05/17/22 08:24 Freq: NEEDED Status: Active Protocol: Document 05/17/22 14:13 SP (Rec: 05/17/22 15:59 SP [id number]) Physical Therapy Treatment Education Education Provided Weight Bearing Status,Post-Op Packet,Safety M7 PT-IP Assessment and Plan Start: 05/17/22 08:24 Freq: NEEDED Status: Active Protocol: Document 05/17/22 14:13 SP (Rec: 05/17/22 15:59 SP [id number]) PT Summary Assessment and Plan Potential Rehabilitation Potential Fair Status of Condition at Evaluation Evolving Summary Impairments Pain,ROM,Strength,Balance, Coordination,Cognition,Bed Mobility,Transfers,Gait, Activity Tolerance Progress Towards Goals Slow Progress due to Pain,Slow Progress due to Activity Tolerance Assessment Summary Pt required Max A x2 to complete squat pivot/slid board transfer chair>bed. He is unable to maintain his PWB (30lbs ) status in standing. He will require SNF rehab when medically stable for discharge. Goals Bed Mobility Goal Minimal Assistance Transfer Goal Minimal Assistance,Front Wheeled Walker Gait Goal Minimal Assistance,Front Wheel Walker Gait Distance 5 Days to Meet Goals 10 Frequency of Treatment Frequency Of Treatment Twice a Day Treatment Plan Physical Therapy Treatment Plan Bed Mobility Training,Transfer Training,Gait Training, Therapeutic Exercise,Balance Retraining,Post Op Education, Discharge Planning,Hot or Cold Pack,Neuromuscular Re-ed, Coordination Retraining,Manual Therapy Other Recommendations and Next Treatment reinforce WB status; slide Focus board transfer, sit to stand with FWW if able maintain 30# LLE; ther ex for LE strength Weight Bearing Status Weight Bearing Status Partial Weight Bearing Allowed Weight Bearing Amount (enter % 30# max PWB LLE or #) (%) Recommendations To Nursing Amount of Assist Needed Mechanical Lift Discharge Recommendations PT Discharge Recommendations SNF Rehab Transportation Needs at Discharge Wheelchair/Cabulance
[2022-05-17 15:51] VITALS: BP 104/58; PULSE 81; RESP 17; TEMP 36.6; O2SAT 96
[2022-05-17 19:55] VITALS: BP 109/67; PULSE 101; RESP 18; TEMP 37.1; O2SAT 95
[2022-05-18 00:28] VITALS: BP 106/58; PULSE 94; RESP 18; TEMP 36.8; O2SAT 98
[2022-05-18] MEDS: OXYCODONE IR 10 MG TABLET PO ×2 (00:31→13:48)
--- NOTE | 2022-05-18 01:52 | PC.NURSE ---
Pt looks much better and talking more with staff today. CIWA still 4. Given 10mg oxy for hip pain. Pt rolled to side mainly by self when changing bedding.
[2022-05-18 06:21] VITALS: BP 109/63; PULSE 90; RESP 18; TEMP 37.5; O2SAT 96
[2022-05-18 06:36] LABS: Hematocrit 24.9 % (41-53); Hemoglobin 8.9 g/dL (13.5-17.5)
[2022-05-18 06:46] LABS: Carbon Dioxide 30 mmol/L (22-32); Chloride 93 mmol/L (98-107); HEMOLYSIS < 15 (0-50); Potassium 3.7 mmol/L (3.4-5.1); Sodium 125 mmol/L (137-145)
--- NOTE | 2022-05-18 07:41 | P.PN_ITS ---
Subjective Subjective Date Patient Seen: 05/18/22 Time Patient Seen: 07:41 Interval history: Continues to have left hip pain. Denies fever or chills. No nausea or vomiting. Exam Vital Signs (past 8 hours): - 05/18/22 00:28 05/18/22 06:21 Temperature 98.2 F 99.5 F Pulse Rate 94 H 90 Respiratory Rate 18 18 Blood Pressure 106/58 L 109/63 Pulse Oximetry 98 96 Oxygen Flow Rate 0 0 Oxygen Delivery Method Room Air Oxygen Flow Rate 0 Narrative Exam Narrative: 59-year-old male resting comfortably in bed in no apparent distress. Dressing is clean, dry and intact. Motor functions intact distal left lower extremity. Sensation grossly intact to light touch distal left lower extremity. Const General: comfortable HENMT Head: normal to inspection Resp Effort & Inspection: normal respiratory effort and able to speak in complete sentences Objective Labs Result Diagrams: 05/18/22 06:15 05/18/22 06:15 Labs: Laboratory Results - last 24 hr 05/18/22 05/18/22 06:15 06:15 Hgb 8.9 L Hct 24.9 L Sodium 125 L Potassium 3.7 Chloride 93 L Carbon Dioxide 30 [facility] Medical History Alcohol dependence Alcoholism Anoxic brain injury Cardiomyopathy Cataracts, bilateral (2007) Chronic cough (1999) COPD (chronic obstructive pulmonary disease) Dislocated elbow (2000) Dislocated shoulder (2001) Eczema (2016) Elevated liver function tests Essential hypertension Fractures (~1963) GERD (gastroesophageal reflux disease) Hypothyroidism Impaired vision Paroxysmal atrial fibrillation Pulmonary nodule (~07/2019) Surgical History History of cataract removal with insertion of prosthetic lens History of nasal surgery (1963) History of repair of hiatal hernia Hx of hernia repair (1995) Family History Father History of arteriosclerotic cardiovascular disease History of emphysema Mother Cancer Grandfather No problems noted. Grandmother Stroke Grandfather No problems noted. Grandmother No problems noted. Social History household members: family and none Smoking Status: Current every day smoker Tobacco: How many years used: 22 quit status: not considering quitting second hand exposure: No alcohol intake: current substance use type: does not use Assessment & Plan Post-op Postoperative Procedures: Procedures Operation Date: 05/16/22 14:00 Actual Procedure Side Surgeon p Intramedullary Nailing Femur Left Yevgeniy Skinner MD Postoperative day: 2 Postoperative status: doing well Postoperative status narrative: Progressing as expected status post left femur open reduction internal fixation intramedullary nailing May 16, 2022 Postoperative plan narrative: Partial weight-bearing less than 30 lb left lower extremity x4 weeks Follow-up [facility] in 2 weeks for recheck with x-rays Mobilize with physical therapy Multimodal pain management Alcohol misuse disorder with chronic alcoholism, paroxysmal atrial fibrillation, cardiomyopathy, chronic hyponatremia, acquired hypothyroidism managed by internal medicine. Discharge to [facility] facility when medically stable.
[2022-05-18 07:59] VITALS: BP 111/66; PULSE 90; RESP 16; TEMP 36.6; O2SAT 96
--- NOTE | 2022-05-18 08:19 | PM.DS.1 ---
History of Present Illness History of Present Illness Chief complaint: Fall/Weakness Narrative: 67-year-old male with a history of alcohol misuse disorder with alcohol dependence anoxic brain injury hypertension cardiomyopathy paroxysmal atrial fibrillation smoker and frequent falls with acquired hypothyroidism presents to the emergency department with a fall. He has been in and out of the emergency department over the last few weeks with a couple of falls last emergency room visit was on Tuesday. Had CT and evaluation that point. And was discharged home. He says since then he has had increasing difficulty with walking. He fell again this morning. He thinks he fell between his last visit and this visit but he is not a very good historian. He says he fell on his left hip. He called the ambulance this morning because he could not walk. He tried to walk again this morning well the paramedics were at his house unable to do so and they brought him here to the emergency department. His x-rays revealed a left hip fracture. A my evaluation he is not complaining of pain. He is not complaining of shortness of breath palpitations dizziness weakness. Patient states he has some hip pain. He says his last drink was probably this morning although his alcohol level is normal. He smokes. He says he is not sure when he took his medication last. On review of his laboratory tests patient has chronic hyponatremia normal kidney function blood sugars look normal x-ray was reviewed. EKG was reviewed. Discharge Providers Provider Date of admission: 05/16/22 12:01 Discharge Date: 05/18/22 Primary care physician: Jose Wyman MD Consults: 05/16/22 11:57 Consult to Orthopedic Surgery Stat Comment: Consulting Provider: Yevgeniy Skinner Reason for consultation: hip fracture Has provider been notified: Yes 05/16/22 13:50 Consult to Respiratory Therapy Evaluate & Treat Comment: Physician Instructions: Evaluate and treat Consult to Metal Crafts Teacher Routine Comment: 05/16/22 17:35 Consult to Discharge Planning Routine Comment: Consult to Physical Therapy Evaluate & Treat Comment: Physician Instructions: Evaluate and Treat Consult to Respiratory Therapy Evaluate & Treat Comment: Physician Instructions: Evaluate and treat 05/17/22 10:48 Consult to Occupational Therapy Evaluate & Treat Comment: Physician Instructions: Evaluate and treat 05/17/22 11:14 Consult to Inpatient Wound Care Nurse Routine Comment: Reason for consultation: high risk for pressure injuries Discharge provider: Ron Durham MD Summary Hospital Course Discharge Diagnosis: Left hip fracture status post repair Acute Blood Loss anemia due to hip fracutre Alcohol misuse disorder with chronic alcoholism no signs of acute withdrawal Paroxysmal atrial fibrillation normal sinus rhythm not on anticoagulation due to recent falls Chronic moderate hyponatremia Cardiomyopathy unspecified as weather alcohol or ischemic no signs of acute heart failure Hypertension Hypothyroidism Tobacco misuse Hospital Course: Patient was admitted to the hospital after multiple falls at home. Patient was found to have a fracture of his hip. Patient went through orthopedic repair postoperative course was uncomplicated pain was well controlled he was eating. Heart rate blood pressure and respiratory rate were stable. He has some chronic hyponatremia this was stable during his hospital stay. Patient was working with physical therapy. Eating well. Vital signs were stable. Electrolytes and blood counts were stable. Orthopedic surgery cleared patient for discharge to skilled rehabilitation. Exam Vital Signs (past 8 hours): - 05/18/22 00:28 05/18/22 06:21 05/18/22 07:59 Temperature 98.2 F 99.5 F 97.8 F Pulse Rate 94 H 90 90 Respiratory Rate 18 18 16 Blood Pressure 106/58 L 109/63 111/66 Pulse Oximetry 98 96 96 Oxygen Flow Rate 0 0 0 Oxygen Delivery Method Room Air Oxygen Flow Rate 0 Objective Labs Result Diagrams: 05/18/22 06:15 05/18/22 06:15 Labs: Laboratory Results - last 24 hr 05/18/22 05/18/22 06:15 06:15 Hgb 8.9 L Hct 24.9 L Sodium 125 L Potassium 3.7 Chloride 93 L Carbon Dioxide 30 PFSH Medical History Alcohol dependence Alcoholism Anoxic brain injury Cardiomyopathy Cataracts, bilateral (2007) Chronic cough (1999) COPD (chronic obstructive pulmonary disease) Dislocated elbow (2000) Dislocated shoulder (2001) Eczema (2017) Elevated liver function tests Essential hypertension Fractures (~1963) GERD (gastroesophageal reflux disease) Hypothyroidism Impaired vision Paroxysmal atrial fibrillation Pulmonary nodule (~07/2019) Surgical History History of cataract removal with insertion of prosthetic lens History of nasal surgery (1963) History of repair of hiatal hernia Hx of hernia repair (1995) Family History Father History of arteriosclerotic cardiovascular disease History of emphysema Mother Cancer Grandfather No problems noted. Grandmother Stroke Grandfather No problems noted. Grandmother No problems noted. Social History household members: family and none Smoking Status: Current every day smoker Tobacco: How many years used: 22 quit status: not considering quitting second hand exposure: No alcohol intake: current substance use type: does not use Discharge Plan Discharge Plan Patient Disposition: SNF Transfer to: [facility] Discharge orders & Medications Prescriptions: New folic acid 1 mg Tablet 1 mg PO DAILY Qty: 30 0RF nicotine 14 mg/24 hr Patch 24 Hour 14 mg topical DAILY Qty: 7 0RF docusate sodium 100 mg Capsule 100 mg PO BID Qty: 30 0RF diazepam 5 mg Tablet 5 mg PO BID PRN (Reason: ag) Qty: 10 0RF oxycodone 10 mg Tablet 5 mg PO Q4-5H PRN (Reason: Pain, Moderate (4-6)) Qty: 20 0RF aspirin 81 mg Tablet,Delayed Release (Dr/Ec) 81 mg PO BID Qty: 30 0RF Continued omeprazole 20 mg capsule,delayed release(DR/EC) 20 mg PO DAILY Qty: 30 6RF carvedilol 3.125 mg tablet 3.125 mg PO BID Qty: 180 3RF Rx Instructions: must administer with a meal/food levothyroxine [Synthroid] 75 mcg tablet 75 mcg PO QDAY Qty: 90 3RF benzonatate 100 mg Capsule 100 mg PO TID PRN (Reason: Cough) Qty: 30 0RF ondansetron HCl 4 mg tablet 4 mg PO PRN (Reason: Nausea) losartan 25 mg tablet 25 mg PO QAM Follow up/Referrals: Jose Wyman MD [Primary Care Provider] - Discharge Data Primary Care Provider: Jose Wyman
--- NOTE | 2022-05-18 08:23 | CM.DPC ---
Addendum entered by Tiffanie Key R.N. 05/18/22 10:38: Spoke to Mady at [facility], she has received auth. She mentioned that since patient has Medicaid as secondary, to use his Medicaid benefit to pick patient up. She stated that when patients have Medicaid, they do not use [employer]. Confirmed with therapy, patient has been weak, a sliding board transfer, and notes some confusion. Had Jazmin, assistant counsel, call Ambulance, she did let them know that patient has Medicaid. Called Dr. Durham, left him a message at his clinic for phone order for BLS transport. Orders are here, Jazmin kindly faxing them to [facility], along with [facility]. Updated Mady on time of cherry picker operator here. Original Note: DCP Cont: Updated Dr. Durham, that [facility] has confirmed acceptance pending insurance auth. Dr. Durham will go ahead and do orders. Placed a COVID swab order per Dr. Durham's order, and left a message for [facility] that patient is medically ready, for they are working on insurance auth. P: DCP to follow up with [facility] regarding insurance auth. Tiffanie Key RN/Commercial Sewing Instructor
[2022-05-18] MEDS: NICOTINE 14 PATCH 14 MG TOP (09:33)
[2022-05-18] MEDS: MULTIVITAMIN 1 TABLET 1 TAB PO (09:33)
[2022-05-18] MEDS: diazePAM 5 MG TABLET PO (09:33)
[2022-05-18] MEDS: DOCUSATE 100 MG CAPSULE PO (09:33)
[2022-05-18] MEDS: ASPIRIN EC 81 MG TABLET PO (09:33)
[2022-05-18] MEDS: THIAMINE 100 MG TABLET PO (09:33)
[2022-05-18] MEDS: FOLIC ACID 1 MG TABLET PO (09:33)
--- NOTE | 2022-05-18 10:17 | OT.IP.TRT ---
Current Diagnoses Hypo-osmolality and hyponatremia (05/16/22) Alcohol abuse, uncomplicated (05/16/22) Displaced intertrochanteric fracture of left femur, initial encounter for closed fracture (05/16/22) Unspecified fall, initial encounter (05/16/22) Surgery Performed Operation Date: 05/16/22 14:00 Actual Procedures p Intramedullary Nailing Femur(Left) - Yevgeniy Skinner MD Occupational Therapy Treatment Note M2 OT-IP Current Condition Start: 05/17/22 11:58 Freq: Status: Active Protocol: Document 05/17/22 11:58 CGR (Rec: 05/17/22 12:12 CGR [id number]) Occupational Therapy Current Condition Current Condition Evaluation Date 05/17/22 Treatment Diagnosis Fall with L hip fx. now s/p ORIF and IM nailing Diagnosis Onset Date 05/16/22 Weight Bearing Status Weight Bearing Status Partial Weight Bearing Allowed Weight Bearing Amount (enter % 30 lbs to the LLE or #) (%) M3 OT- IP Subjective and Pain Start: 05/17/22 11:58 Freq: Status: Active Protocol: Document 05/18/22 10:00 [facility] (Rec: 05/18/22 10:30 [facility] [id number]) OT- Subjective Occupational Therapy Visit Type Type Treatment Note Visit Start Time 10:00 Visit Stop Time 10:17 Total Visit Minutes 17 Occupational Therapy Visit Comments Patient Comments Pt not wanting to get up due to hurting too much but agreed to do SLUMS. Patient/Caregiver Goals TO get better. OT Pain Assessment Pain When Pain Assessed At Rest Pain Present Pain Present Pain Reported M4 OT- IP ADL's Start: 05/17/22 11:58 Freq: Status: Active Protocol: Document 05/17/22 11:58 CGR (Rec: 05/17/22 12:12 CGR [id number]) OT BFT-Urax-Ogwbyof Comments OT Self-Feeding Comments not meal time OT ADL-Grooming General Evaluation Grooming Ability Standby Assistance Areas Needing Assistance Face Washing Comments OT Grooming Comments seated in chair with set up OT ADL-Oral Care General Eval Oral Care Ability Standby Assistance Areas of Assistance Brushing Teeth Comments Oral Care Comments seated in chair with set up OT ADL-Dressing General Eval Lower Body Dressing Ability Total Assistance Areas Needing Assistance Socks OT ADL-Toileting General Evaluation Toileting Ability Total Assistance Comments OT Toileting Comments pt with calderon OT ADL-Bathing Comments OT Bathing Comments not performed on this date M5 OT- IP IADL's Start: 05/17/22 11:58 Freq: Status: Active Protocol: Document 05/17/22 11:58 CGR (Rec: 05/17/22 12:12 CGR [id number]) OT-Instrumental Activities of Daily Living Deficits IADL Deficits Identified No Deficits Home Safety Awareness Awareness of Need for Assistance at Home Good Awareness Ability to Problem Solve Emergency Able to Problem Solve Situations Medication Management Medication Management No Deficits Identified Money Management Money Management No Deficits Identified Meal Preparation Meal Preparation Comments Pt reports increasing difficulty in performing this task Director Of Pulmonary Unit Director Of Pulmonary Unit Comments Pt reports increasing difficulty in performing this task Driving Driving Comments Pt does not drive M6 OT- IP Functional Cognition Start: 05/17/22 11:58 Freq: Status: Active Protocol: Document 05/18/22 10:00 [facility] (Rec: 05/18/22 10:30 [facility] [id number]) Cognitive Factors Limiting Selfcare Function Cognitive Ability Level of Alertness Alert Patient Orientation Name,Age,Birthday,Month,Date, Year,Day of Week,Place, Situation Attention Span Ability Capable of Focused Attention, Capable of Sustained Attention Ability to Follow Commands Able to Follow One Step Commands Memory Description Short Term Impaired,Working Impaired Problem Solving Ability Needs Assist to Identify Solutions Executive Function Ability Unable to Organize Plans, Unable to Remember Details Cognitive Tests SLUMS Pt scored 21/30 which implies mild neurocognitive disorders. Pt able to recall 6 animals in one minute, able to recall 4/5 objects after time passed, not able to recall 4 digit number backwards, not able to write the numbers on the clock proportionally or draw the hour hands accurately after time given, and pt able to answer 3/4 questions right after paragraph read. Cognitive Comments Cognitive Assessment Comments Pt states prior has difficulty to remember his medications and forgets to write things down for himself. Unsure if this is pt prior level of functioning for cognitive needs. Pt states his brother now assist with his finances. M9 OT- IP Assessment and Plan Start: 05/17/22 11:58 Freq: Status: Active Protocol: Document 05/18/22 10:00 [facility] (Rec: 05/18/22 10:30 [facility] [id number]) OT Summary Assessment and Plan Potential Rehabilitation Potential Good Analytic Complexity at Evaluation Moderate Summary OT Impairments Pain,Strength,Balance, Functional Mobility,Grooming, Dressing,Toileting,Bathing, Toilet Transfers,Shower Transfers,Activity Tolerance Progress Towards Goals Slow Progress due to Pain Assessment Summary Pt not up to getting up at this time but able to do SLUMS , cognitive assessment which implies mild neurocognitive deficits. Pt looking to go go skilled rehab when medically appropriate. For pt's safety may be best to transfer pt with BLS transfer at this time as pt needing larry lift for transfers and decreased sitting balance. Goals Grooming Goal Independent Dressing Goal Independent Toileting Goal Independent Bathing Goal Independent Toilet Transfer Goal Independent Shower Transfer Goal Independent Days to Meet Goals 30 Frequency of Treatment Frequency Of Treatment Once a Day Treatment Plan OT Treatment Plan ADL Training,Functional Cognition Training,Functional Mobility,Patient/Family Education,Discharge Planning Discharge Recommendations OT Discharge Recommendations SNF Rehab Transportation Needs at Discharge Stretcher/Ambulance
--- NOTE | 2022-05-18 10:22 | PT.IPTN ---
Current Diagnoses Hypo-osmolality and hyponatremia (05/16/22) Alcohol abuse, uncomplicated (05/16/22) Displaced intertrochanteric fracture of left femur, initial encounter for closed fracture (05/16/22) Unspecified fall, initial encounter (05/16/22) Surgery Performed Operation Date: 05/16/22 14:00 Actual Procedures p Intramedullary Nailing Femur(Left) - Yevgeniy Skinner MD Physical Therapy Treatment Note M2 PT-IP Current Condition Start: 05/17/22 08:24 Freq: NEEDED Status: Active Protocol: Document 05/17/22 14:13 SP (Rec: 05/17/22 15:59 SP [id number]) Physical Therapy Current Condition Current Condition Evaluation Date 05/17/22 Treatment Diagnosis L femur fx s/p ORIF Onset Date 05/14/22 M3 PT-IP Subjective Start: 05/17/22 08:24 Freq: NEEDED Status: Active Protocol: Document 05/18/22 10:22 AB (Rec: 05/18/22 12:19 AB [id number]) Subjective Physical Therapy Visit Type Type Treatment Note Visit Start Time 10:22 Visit Stop Time 10:44 Total Visit Minutes 22 Number of SOLAR INSTALLATION CREW SUPERVISOR Visits 0 Physical Therapy Visit Comments Patient Comments agreed to do PT Therapy Pain Assessment Pain When Pain Assessed At Rest Pain Present Pain Present Pain Reported Location Left hip and leg Scale Used pain scale not stated Pain Management Techniques Distraction,Modification of Treatment,Re-positioning, Timing of Activity with Medications M4 PT-IP Mobility and Gait Start: 05/17/22 08:24 Freq: NEEDED Status: Active Protocol: Document 05/18/22 10:22 AB (Rec: 05/18/22 12:19 AB [id number]) PT-Bed Mobility Assessment Supine to Sit Supine to Sit Maximum Assistance,1 Person Assistance,2 Person Assistance ,Head of Bed Elevated,Bedrails Sit to Supine Sit to Supine Maximum Assistance,2 Person Assistance Scooting Scooting to Edge of Bed Maximum Assistance Scooting Up and Down in Bed Maximum Assistance PT-Transfer Assessment Sit to and From Stand Sit to and from Stand Maximum Assistance,2 Person Assistance,Use of Upper Extremities Equipment Transfer Assistive Device Gait Belt,Front Wheeled Walker Orthotic/Prosthetic Devices or Brace: No Comments Mobility Comments pt completed supine to sit max A x 1-2 and max cues and HOB elevated. pt with confusion. educated pt on weight bearing restriction. completed sit to stand x 2 attempts requiring max A x 2 and max cues. requires max A for weight bearing restriction. pt presents with increase lateral trunk lean to the L and posterior trunk lean. RLE tends to slide forward with with to stand requiring assist for stability. pt refused to sit on the chair and requested to go back to bed. scooted towards HOB max A x 1-2 and max cues. completed sit to supine max A x 2 and max cues. positioned pt on the chair. call light and table placed within reach. M5 PT-IP Objective Assessments Start: 05/17/22 08:24 Freq: NEEDED Status: Active Protocol: Document 05/17/22 11:45 AW (Rec: 05/17/22 12:52 AW [id number]) Orientation Orientation/Cognition Level of Alertness Alert Orientation Name,Date,Situation Safety Awareness Decreased Safety Awareness Comments Pt has flat affect but does communicate his needs. Gross Range of Motion Upper Extremity ROM Assessment Within Functional Limits Lower Extremity ROM Assessment Left Impaired Strength Upper Extremity Strength Assessment Bilaterally Impaired Lower Extremity Strength Assessment Bilaterally Impaired Hip R 3+/5; L 3-/5 Knee R 4-/5; L 3+/5 Comments Strength Comments BUE grossly ~4/5 Coordination Assessment Gross Coordination Gross Coordination Impaired Assessment Coordination Comments LLE coodination was impaired and ataxic in nature on assessment 03/16/22. Sensation Assessment Sensation Gross Sensation WNL Muscle Tone Muscle Tone WNL Yes M6 PT-IP Treatment Start: 05/17/22 08:24 Freq: NEEDED Status: Active Protocol: Document 05/18/22 10:22 AB (Rec: 05/18/22 12:19 AB [id number]) Physical Therapy Treatment Education Education Provided Weight Bearing Status,Safety M7 PT-IP Assessment and Plan Start: 05/17/22 08:24 Freq: NEEDED Status: Active Protocol: Document 05/18/22 10:22 AB (Rec: 05/18/22 12:19 AB [id number]) PT Summary Assessment and Plan Potential Rehabilitation Potential Fair Summary Impairments Pain,ROM,Strength,Balance, Coordination,Sensation,Tone, Cognition,Bed Mobility, Transfers,Gait,Activity Tolerance Progress Towards Goals Slow Progress due to Pain,Slow Progress due to Medical Issues,Slow Progress due to Activity Tolerance,Slow Progress - Other Assessment Summary pt requiring max Ax2 for mobility and unable to ambulate at this time. pt also has confusion and decrease safety awareness. Pt will require SNF rehab to improve strength and mobility. Goals Bed Mobility Goal Minimal Assistance Transfer Goal Minimal Assistance,Front Wheeled Walker Gait Goal Minimal Assistance,Front Wheel Walker Gait Distance 5 Days to Meet Goals 10 Frequency of Treatment Frequency Of Treatment Twice a Day Treatment Plan Physical Therapy Treatment Plan Bed Mobility Training,Transfer Training,Gait Training, Therapeutic Exercise,Balance Retraining,Post Op Education, Discharge Planning,Hot or Cold Pack,Neuromuscular Re-ed, Coordination Retraining,Manual Therapy Weight Bearing Status Weight Bearing Status Partial Weight Bearing Allowed Weight Bearing Amount (enter % 30# max PWB LLE or #) (%) Recommendations To Nursing Amount of Assist Needed Mechanical Lift Discharge Recommendations PT Discharge Recommendations SNF Rehab Transportation Needs at Discharge Wheelchair/Cabulance
--- NOTE | 2022-05-18 10:26 | CM.DPNOTE ---
Called [facility] for bls transport at 1400. Spoke to Emma. Jazmin Reyes CM Assist.
[2022-05-18 11:02] LABS: COVID19 -Nasal RAPID Negative (Negative)
--- NOTE | 2022-05-18 11:15 | PC.NURSE ---
Assess- Patient is alert and oriented x 3 but confused at times. His CIWA is 0. He has refused physical therapy this morning. HE will be going to [facility] at 1400 and calderon will go with patient. Given valium and this does help with withdrawal as well as his discomfort to l.hip. Dressing is cdi and he is eating and resting comfortably.
[2022-05-18 12:00] VITALS: BP 101/63; PULSE 103; RESP 17; TEMP 36.8; O2SAT 98
== END 2022-05-18 14:00 | DRG 481 ==
LOC: ED 10:43 → AC 12:01
PROVIDERS: Orthopaedic Surgery Orthopaedic Surgery of the Spine; Admitting Provider Family Medicine; Emergency Provider Emergency Medicine; PCP Internal Medicine; Referring Provider Emergency Medicine; Visit Provider Family Medicine
PROC: 0QS706Z Reposition Left Upper Femur with Intramedullary Internal Fixation Device, Open Approach (ICD-10-PCS; CPT 27245; principal; 2022-05-16 14:00)
DX: S72.142A Displaced intertrochanteric fracture of left femur, initial encounter for closed fracture (principal); D62 Acute posthemorrhagic anemia; I42.9 Cardiomyopathy, unspecified; E87.1 Hypo-osmolality and hyponatremia; F10.20 Alcohol dependence, uncomplicated; I48.0 Paroxysmal atrial fibrillation; E03.9 Hypothyroidism, unspecified; K21.9 Gastro-esophageal reflux disease without esophagitis; I10 Essential (primary) hypertension; F17.210 Nicotine dependence, cigarettes, uncomplicated; W18.30XA Fall on same level, unspecified, initial encounter; Y90.0 Blood alcohol level of less than 20 mg/100 ml; Z87.820 Personal history of traumatic brain injury; Z20.822 Contact with and (suspected) exposure to COVID-19; Z91.81 History of falling
CPT/HCPCS: 01230; 36415; 73502; 73552; 76000; 80051; 80053; 80320; 83690; 85014; 85018; 85025; 85610; 85730; 86850; 86900; 86901; 87635; 93005; 96365; 96375; 97129; 97162; 97166; 97530; 97535; 99223; 99232; 99238; 99284; C9803; J0690; J1170; J2250; J2270; J2405; J2765; J3010

== ENCOUNTER 2022-09-06 09:56 | Emergency (ER) | payer MEDICARE, MEDICAID, SELFPAY ==
[2020-02-23 11:45] VITALS: PULSE 67; RESP 20; O2SAT 100
[2022-09-06] VITALS (10 sets, daily range): BP systolic 138–170; BP diastolic 71–80; PULSE 70–88; RESP 18; TEMP 36.6; O2SAT 82–97
--- NOTE | 2022-09-06 10:03 | DI.RAD.S_ITS ---
PROCEDURE: XR HIP W PEL IF DONE LT 2V INDICATIONS: GLF, pain TECHNIQUE: AP pelvis with lateral view(s) of the left hip(s). COMPARISON: [facility], CR, XR HIP W PEL IF DONE LT 2V, 05/16/2022, 15:46. [facility], CR, XR PELVIS WITH LATERAL HIP LEFT, 08/18/2022, 11:20. FINDINGS: Bones: Again noted is prior ORIF of left proximal humerus with healing intertrochanteric fracture seen. There is no evidence of hardware loosening or failure. Bilateral hip joint osteoarthritic changes are again seen. No acute fracture or dislocation. No evidence of avascular necrosis of femoral head.. Pelvic ring appears intact. No suspicious bony lesions. Soft tissues: The visualized bowel gas pattern is normal. No suspicious soft tissue calcifications. IMPRESSION: Prior ORIF of left proximal femur with stable and anatomic left hip alignment. No gross hardware loosening or failure. Healing left proximal intertrochanteric fracture. No acute fracture or dislocation. Bilateral hip joint osteoarthritis. No gross avascular necrosis of femoral heads. Dictated by: Jacek Barnett M.D. on 09/06/2022 at 10:41 Approved by: Jacek Barnett M.D. on 09/06/2022 at 10:42
--- NOTE | 2022-09-06 10:13 | DI.RAD.S_ITS ---
PROCEDURE: XR CHEST 1V INDICATIONS: fall TECHNIQUE: One view of the chest was acquired. COMPARISON: [facility], CR, XR CHEST 1V, 03/17/2022, 14:29. FINDINGS: Surgical changes and devices: The Lungs and pleura: Lungs are clear. No pleural effusions or pneumothorax. Mediastinum: Mediastinal contours appear normal. Heart size is normal. Bones and chest wall: Age indeterminate left posterior lateral 6th rib fracture is seen. Overlying soft tissues appear unremarkable. IMPRESSION: No acute cardiopulmonary pathology. Age indeterminate left posterior lateral 6th rib fracture. Dictated by: Jacek Barnett M.D. on 09/06/2022 at 10:59 Approved by: Jacek Barnett M.D. on 09/06/2022 at 11:00
[2022-09-06 10:53] LABS: Add Manual Diff / Slide Review NO; Basophils Absolute Auto 0 /uL (0-100); Basophils Percent Auto 0.5 % (0-2); Eosinophils Absolute Auto 0 /uL (0-450); Eosinophils Percent Auto 0.5 % (2-4); Hemoglobin 14.1 g/dL (13.5-17.5); Lymphocytes Absolute Auto 1300 /uL (1100-4500); Lymphocytes Percent Auto 16.8 % (25-40); Mean Corpuscular HGB Conc 34.4 % (30-36); Mean Corpuscular Hemoglobin 29.9 PG (26-34); Mean Corpuscular Volume 86.9 fL (80-100); Monocytes Absolute Auto 800 /uL (0-900); Monocytes Percent Auto 9.9 % (3-14); Neutrophils Absolute Auto 5700 /uL (1500-7000); Neutrophils Percent Auto 72.3 % (50-75); Platelet Count 232 X10^3/uL (150-400); Red Blood Cell Count 4.72 X10^6/uL (4.5-5.9); Red Cell Distribution Width 13.6 % (11.6-14.8); White Blood Cell Count 7.9 X10^3/uL (4.5-11.0)
[2022-09-06 11:10] LABS: Alanine Aminotransferase 20 IU/L (<50); Albumin 4.5 g/dL (3.5-5.0); Albumin Globulin Ratio 1.2 (1.0-2.8); Alkaline Phosphatase 211 U/L (38-126); Aspartate Aminotransferase 38 IU/L (17-59); BUN Creatinine Ratio 11.6 (6-22); Blood Urea Nitrogen 5 mg/dL (9-20); Calcium 8.6 mg/dL (8.4-10.2); Carbon Dioxide 21 mmol/L (22-32); Chloride 91 mmol/L (98-107); Estimated Glomerular Filt Rate > 60 mL/min (>60); Globulin 3.9 g/dL (1.7-4.1); Glucose 77 mg/dL (80-110); HEMOLYSIS < 15 (0-50); Potassium 4.4 mmol/L (3.4-5.1); Sodium 128 mmol/L (137-145); Total Protein 8.4 g/dL (6.3-8.2)
[2022-09-06 11:37] LABS: Influenza A - CEPHEID Flu A NEGATIVE (NEGATIVE); Influenza B - CEPHEID Flu B NEGATIVE (NEGATIVE); Respiratory Syncytial Virus Negative (Negative)
[2022-09-06 11:39] LABS: COVID-19 CEPHEID 4-PLEX PCR Negative (Negative)
--- NOTE | 2022-09-06 12:52 | ED.FALL ---
HPI - Fall General Chief Complaint: Fall Stated Complaint: Multiple GLF, left hip pain Time Seen by Provider: 09/06/22 10:04 Source: patient and EMS Mode of arrival: EMS History of Present Illness HPI Narrative: Patient is a 67-year-old male history of alcohol misuse disorder with anoxic brain injury, hypertension cardiomyopathy paroxysmal atrial fibrillation with a hip fracture in April of 2022. He was admitted to the hospital and then released to a rehab facility. He reports that he was released home on August 31. He reports that since being home he has fallen numerous times. He reports that he has a walker and a wheelchair at home. He has been getting around by the wheelchair. He has been careful not to hit his head. He states that he drinks beer and is still drinking some crown. Discharge summary from hospitalization in April has been reviewed by myself. Patient does not report any injury from his falls at home. He has a caregiver. The caregiver was concerned from his falls any significant abrasions on his right leg so he was sent to the ED for evaluation. He denies any fever or chills. He has no chest pain or palpitations. He has been in the ED for a couple of hours now and would like to go home. Related Data Home Medications Medication Instructions Recorded Confirmed losartan 25 mg tablet 25 mg PO QAM 05/16/22 05/16/22 ondansetron HCl 4 mg tablet 4 mg PO PRN Nausea 05/16/22 Previous Rx's Medication Instructions Recorded omeprazole 20 mg capsule,delayed 20 mg PO DAILY #30 caps 05/25/21 release benzonatate 100 mg capsule 100 mg PO TID PRN Cough #30 caps 03/19/22 carvedilol 3.125 mg tablet 3.125 mg PO BID #180 tabs 04/15/22 levothyroxine 75 mcg tablet 75 mcg PO QDAY #90 tabs 04/15/22 (Synthroid) aspirin 81 mg tablet,delayed 81 mg PO BID #30 tabs 05/18/22 release diazepam 5 mg tablet 5 mg PO BID PRN ag #10 tabs 05/18/22 docusate sodium 100 mg capsule 100 mg PO BID #30 caps 05/18/22 folic acid 1 mg tablet 1 mg PO DAILY #30 tabs 05/18/22 nicotine 14 mg/24 hr daily 14 mg topical DAILY #7 ea 05/18/22 transdermal patch oxycodone 10 mg tablet 5 mg PO Q4-5H PRN Pain, Moderate 05/18/22 (4-6) #20 tabs Allergies Allergy/AdvReac Type Severity Reaction Status Date / Time ciprofloxacin [From CIPRO] Allergy Severe SWELLING Verified 04/15/22 10:58 IN HANDS, ARMS, LEGS AND FEET pantoprazole AdvReac Intermediate n/v, Verified 04/15/22 10:58 omeprazole okay Patient History Medical History Alcohol dependence Alcoholism Anoxic brain injury Cardiomyopathy Cataracts, bilateral (2007) Chronic cough (1999) COPD (chronic obstructive pulmonary disease) Dislocated elbow (2000) Dislocated shoulder (2001) Eczema (2016) Elevated liver function tests Essential hypertension Fractures (~1963) GERD (gastroesophageal reflux disease) Hypothyroidism Impaired vision Paroxysmal atrial fibrillation Pulmonary nodule (~07/2019) Surgical History History of cataract removal with insertion of prosthetic lens History of nasal surgery (1963) History of repair of hiatal hernia Hx of hernia repair (1995) Family History Father History of arteriosclerotic cardiovascular disease History of emphysema Mother Cancer Grandfather No problems noted. Grandmother Stroke Grandfather No problems noted. Grandmother No problems noted. Social History household members: family and none Smoking Status: Current every day smoker Tobacco: How many years used: 22 quit status: not considering quitting second hand exposure: No alcohol intake: current substance use type: does not use Smoking Status: Current every day smoker tobacco type: cigarettes alcohol intake frequency: 3 or more drinks per day Alcohol type: beer and hard liquor Substance Use Type: does not use Exam Initial Vital Signs Initial Vital Signs: Vital Signs Temperature 97.9 F 09/06/22 09:56 Pulse Rate 72 09/06/22 09:56 Respiratory Rate 18 09/06/22 09:56 Blood Pressure 138/80 09/06/22 09:56 Pulse Oximetry 96 09/06/22 09:56 Oxygen Delivery Method 09/06/22 09:56 GENERAL: Alert 67-year-old male and in no acute distress. HEENT: Head atraumatic,EOMI, pupils reactive, face symmetric, moist mucous membranes CARDIOVASCULAR: Regular rate and rhythm without murmurs, rubs or gallops. RESPIRATORY: Breath sounds equal bilaterally, no wheezes rales or rhonchi. ABDOMEN: Soft, nontender. Normoactive bowel sounds all 4 quadrants. No guarding or rebound. EXTREMITIES: Normal range of motion, no clubbing or edema. 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 strength equal bilaterally good [id number] bilaterally and [id number] face is symmetric SKIN: Abrasions right leg no lacerations they are scabbed over no significant erythema or sign of infection Course Orders Ordered: ED Orders 09/06/22 12:59 CT head/brain wo con Stat Vital Signs Vital signs: Vital Signs - 8 hr 09/06/22 12:53 09/06/22 12:54 09/06/22 12:54 Pulse Rate 80 82 Blood Pressure 145/76 H Pulse Oximetry 96 96 09/06/22 13:00 09/06/22 13:13 09/06/22 13:13 Pulse Rate 88 71 Blood Pressure 170/76 H Pulse Oximetry 96 97 09/06/22 13:30 09/06/22 13:31 09/06/22 13:31 Pulse Rate 72 74 Blood Pressure 149/71 H Pulse Oximetry 96 96 09/06/22 14:01 Pulse Rate Blood Pressure Pulse Oximetry 82 L MDM - Fall Lab Data Result diagrams: 09/06/22 10:00 09/06/22 10:00 Labs: Lab Results 09/06/22 09/06/22 09/06/22 Range/Units 10:00 10:00 10:44 WBC 7.9 (4.5-11.0) X10^3/uL RBC 4.72 (4.5-5.9) X10^6/uL Hgb 14.1 (13.5-17.5) g/dL Hct 41.0 (41-53) % MCV 86.9 (80-100) fL MCH 29.9 (26-34) PG MCHC 34.4 (30-36) % RDW 13.6 (11.6-14.8) % Plt Count 232 (150-400) X10^3/uL Neut % (Auto) 72.3 (50-75) % Lymph % (Auto) 16.8 L (25-40) % [place] % (Auto) 9.9 (3-14) % Eos % (Auto) 0.5 L (2-4) % Baso % (Auto) 0.5 (0-2) % Neut # (Auto) 5700 (0927-4967) /uL Lymph # (Auto) 1300 (3007-3843) /uL [place] # (Auto) 800 (0-900) /uL Eos # (Auto) 0 (0-450) /uL Baso # (Auto) 0 (0-100) /uL Sodium 128 L (137-145) mmol/L Potassium 4.4 (3.4-5.1) mmol/L Chloride 91 L (98-107) mmol/L Carbon Dioxide 21 L (22-32) mmol/L BUN 5 L (9-20) mg/dL Creatinine 0.43 L (0.66-1.25) mg/dL Estimated GFR > 60 (>60) mL/min BUN/Creatinine Ratio 11.6 (6-22) Glucose 77 L (80-110) mg/dL Calcium 8.6 (8.4-10.2) mg/dL Total Bilirubin 1.0 (0.2-1.3) mg/dL AST 38 (17-59) IU/L ALT 20 (<50) IU/L Alkaline Phosphatase 211 H (38-126) U/L Total Protein 8.4 H (6.3-8.2) g/dL Albumin 4.5 (3.5-5.0) g/dL Globulin 3.9 (1.7-4.1) g/dL Albumin/Globulin Ratio 1.2 (1.0-2.8) SARS-CoV-2 (PCR) Negative (Negative) Influenza A (RT-PCR) Flu a negative (NEGATIVE) Influenza B (RT-PCR) Flu b negative (NEGATIVE) RSV (PCR) Negative (Negative) Urine Dip Bedside Urine Glucose Negative Bedside Urine Bilirubin - Negative Bedside Urine Ketone ++ 40 Urine Specific [place] 1.015 Bedside Urine Occult Blood - Negative Bedside Urine pH 6.0 Bedside Urine Protein - Negative Bedside Urine Urobilinogen - Negative Bedside Urine Nitrite + Positive Bedside Urine Leukocytes ++ 125 Esterase MDM Narrative Medical decision making narrative: Patient 67-year-old history of alcohol abuse and hyponatremia presenting today with increasing falls since being released from his rehab facility. Last admission in April of 2022 has been reviewed. Patient is found to again be hyponatremic with a sodium of 127 however previously had sodiums are 125 so it is actually slightly improved. He is no evidence of dehydration or infection. His viral panel is also negative. Imaging today does not show any abnormality. His head CT was within normal limits no fracture seen in his pelvis around his left hip in his chest x-ray is also negative. Patient received no treatments in the emergency department. He is able to move all of his extremities. He has home health care at home he has all the equipment at home that he needs. At this time I suspect that his frequent falls are secondary to his alcohol use that he started since he got out of rehab. Differential diagnosis includes intracranial hemorrhage, electrolyte abnormality, infection Discharge Plan Departure Patient Disposition: Home Clinical Impression: Acute hyponatremia Instructions: How to Prevent Falls Activity Restrictions/Additional Instructions: *You have been diagnosed with low sodium and frequent falls *What to do: Please have her sodium rechecked with your PCP later this week. Please use walker and wheelchair at all times. *Continue to take medications as directed *Follow up with your primary care provider in 2-3 days or call [phone] *Return to ER if you should have any new, worsening or concerning symptoms Prescriptions: No Action omeprazole 20 mg capsule,delayed release(DR/EC) 20 mg PO DAILY Qty: 30 6RF carvedilol 3.125 mg tablet 3.125 mg PO BID Qty: 180 3RF Rx Instructions: must administer with a meal/food levothyroxine [Synthroid] 75 mcg tablet 75 mcg PO QDAY Qty: 90 3RF benzonatate 100 mg Capsule 100 mg PO TID PRN (Reason: Cough) Qty: 30 0RF ondansetron HCl 4 mg tablet 4 mg PO PRN (Reason: Nausea) losartan 25 mg tablet 25 mg PO QAM folic acid 1 mg Tablet 1 mg PO DAILY Qty: 30 0RF nicotine 14 mg/24 hr Patch 24 Hour 14 mg topical DAILY Qty: 7 0RF docusate sodium 100 mg Capsule 100 mg PO BID Qty: 30 0RF diazepam 5 mg Tablet 5 mg PO BID PRN (Reason: ag) Qty: 10 0RF oxycodone 10 mg Tablet 5 mg PO Q4-5H PRN (Reason: Pain, Moderate (4-6)) Qty: 20 0RF aspirin 81 mg Tablet,Delayed Release (Dr/Ec) 81 mg PO BID Qty: 30 0RF Referrals: Jose Wyman MD [Primary Care Provider] - Stand Alone Forms: Patient Portal/API
--- NOTE | 2022-09-06 12:59 | DI.CT.S_ITS ---
PROCEDURE: CT HEAD/BRAIN WO CON INDICATIONS: etoh frequent falls TECHNIQUE: Noncontrast 4.5 mm thick angled axial sections acquired from the foramen magnum to the vertex, with coronal and sagittal reformats. For radiation dose reduction, the following was used: automated exposure control, adjustment of mA and/or kV according to patient size. COMPARISON: [facility], CT, CT HEAD/BRAIN WO CON, 05/12/2022, 18:51. FINDINGS: Image quality: Excellent. CSF spaces: Basal cisterns are patent. No extra-axial fluid collections. The ventricles are symmetric in size and shape. Brain: No intracranial bleeds or masses. There is cerebral volume loss for age, with resultant ventricular and sulcal prominence. There are periventricular and deep white matter chronic small vessel ischemic changes. There is intracranial internal carotid artery atherosclerosis. Skull and face: Calvarium and visualized facial bones appear intact, without suspicious lesions. Sinuses: Visualized sinuses and mastoids are clear. IMPRESSION: 1. No CT evidence of acute intracranial abnormalities. 2. No acute skull fracture. 3. Age related volume loss and chronic small vessel ischemic changes. Dictated by: Jacek Barnett M.D. on 09/06/2022 at 13:20 Approved by: Jacek Barnett M.D. on 09/06/2022 at 13:21
--- NOTE | 2022-09-06 14:02 | CM.SWNOTE ---
Patient is a 67-year-old male history of alcohol misuse disorder with anoxic brain injury, hypertension cardiomyopathy paroxysmal atrial fibrillation with a hip fracture in April of 2022. He was admitted to the hospital and then released to a rehab facility. He reports that he was released home on August 31. He reports that since being home he has fallen numerous times. He reports that he has a walker and a wheelchair at home. He has been getting around by the wheelchair. Pt has [facility] Medicare and Medicaid. SW consulted to find out if pt has active caregiver at home. SW called main [facility] office and left a voicemail requesting a call back with information on pt's current [employer] Loan Assistant. Through chart review, ZEESHAN found the contact information for pt's previous [facility] case management coordinator, Kenia Enamorado [phone]. SW called Kenia and she looked in pt's chart and found that his current HCS worker is Rachael Patel . Kenia reported that pt was recently discharged from SNF and had caregivers set up through [facility] about a week ago. Kenia provided the phone number for [facility] [phone]. SW called [facility] and they reported that they ended services with client because he did not adhere to the contract they made that his drinking would not interfere with their care. ZEESHAN called pt's HCS worker Rachael but the number has been disconnected. Plan: SW will await call from main [facility] office with updated contact information for pt's current [facility] case management coordinator. ROBIN Henry
== END 2022-09-06 15:03 | disposition home or self-care (01) ==
PROVIDERS: Emergency Provider Emergency Medicine; PCP Internal Medicine
DX: E87.1 Hypo-osmolality and hyponatremia (principal); R29.6 Repeated falls; I48.20 Chronic atrial fibrillation, unspecified; Z79.899 Other long term (current) drug therapy; Z20.822 Contact with and (suspected) exposure to COVID-19
CPT/HCPCS: 0241U; 70450; 71045; 73502; 80053; 81003; 85025; 99283; 99284

== ENCOUNTER 2023-02-10 10:43 | Emergency (ER) | payer MEDICARE, MEDICAID, SELFPAY ==
[2020-02-23 11:45] VITALS: PULSE 67; RESP 20; O2SAT 100
[2023-02-10] VITALS (7 sets, daily range): BP systolic 136–152; BP diastolic 79–94; PULSE 73–84; RESP 19; TEMP 36.5; O2SAT 94–98; BMI 22.9
--- NOTE | 2023-02-10 11:07 | ED_ITS ---
HPI - Fall General Chief Complaint: Fall Stated Complaint: fallen several times over 2 days Time Seen by Provider: 02/10/23 11:07 Source: patient Mode of arrival: Ambulatory Limitations: no limitations History of Present Illness HPI Narrative: This is a 67-year-old male with history of hypertension, hypothyroidism, paroxysmal atrial fibrillation, alcohol abuse with complaint of multiple falls. Patient states he is had falls for some time but they have become more frequent he had 3 falls yesterday and for falls the day before that. He states his caregiver who is there several days weekly prompted him to come today. They state he does usually fall once or twice a week but this is more frequent. He has hit his head before he does not think he is had any loss of consciousness. He denies neck or back pain. He has some left rib pain been there for the last week or 2. He denies any bruising there but has a lot of bruising on his arms legs that he notes. Denies any chest pain or pressure. He is had chronic shortness of breath but not any worse than usual. He is had a little bit of nausea, he states no vomiting. No diarrhea constipation. No black or bloody stools. No abdominal back or flank pain. Had some urinary frequency but denies any incontinence or dysuria. He states his legs are bruise but no new swelling. He notes he should be on medication for blood pressure, thyroid, GERD and c holesterol. He denies any major surgeries. States he is allergic to pantoprazole and Cipro. Patient does use tobacco daily. He drinks a 6 pack +3 shots of crown royal daily. Denies any marijuana or illicit drugs. Patient states Dr. Wyman was his primary care physician but he was released from the office after missing too many visits. They have [facility] to establish. Related Data Home Medications Medication Instructions Recorded Confirmed losartan 100 mg tablet 100 mg PO DAILY 09/20/22 09/20/22 trazodone 50 mg tablet 50 mg PO BEDTIME 09/20/22 09/20/22 Previous Rx's Medication Instructions Recorded omeprazole 20 mg capsule,delayed 20 mg PO DAILY #30 caps 05/25/21 release carvedilol 3.125 mg tablet 3.125 mg PO BID #180 tabs 04/15/22 levothyroxine 75 mcg tablet 75 mcg PO QDAY #90 tabs 04/15/22 (Synthroid) nitrofurantoin 100 mg PO Q12H 7 days #14 caps 02/10/23 monohydrate/macrocrystals 100 mg capsule (Macrobid) Allergies Allergy/AdvReac Type Severity Reaction Status Date / Time ciprofloxacin [From CIPRO] Allergy Severe SWELLING Verified 02/10/23 10:51 IN HANDS, ARMS, LEGS AND FEET pantoprazole AdvReac Intermediate n/v, Verified 02/10/23 10:51 omeprazole okay Review of Systems Review of Systems ROS Unobtainable: All systems reviewed & are unremarkable except as noted in HPI and below Patient History Medical History Acute hyponatremia Alcohol dependence Alcoholism Anoxic brain injury Cardiomyopathy Cataracts, bilateral (2007) Chronic cough (1999) COPD (chronic obstructive pulmonary disease) Dislocated elbow (2000) Dislocated shoulder (2001) Eczema (2016) Elevated liver function tests Essential hypertension Fractures (~1963) GERD (gastroesophageal reflux disease) Hypothyroidism Impaired vision Intertrochanteric fracture of left hip Paroxysmal atrial fibrillation Pulmonary nodule (~07/2019) Surgical History History of cataract removal with insertion of prosthetic lens History of nasal surgery (1963) History of repair of hiatal hernia Hx of hernia repair (1995) Family History Father History of arteriosclerotic cardiovascular disease History of emphysema Mother Cancer Grandfather No problems noted. Grandmother Stroke Grandfather No problems noted. Grandmother No problems noted. Social History household members: family and none Smoking Status: Current every day smoker Tobacco: How many years used: 22 quit status: not considering quitting second hand exposure: No alcohol intake: current substance use type: does not use Smoking Status: Current every day smoker tobacco type: cigarettes alcohol intake frequency: 3 or more drinks per day Alcohol type: beer and hard liquor Substance Use Type: does not use Exam Narrative Exam Narrative: GEN: Thin elderly male, alert and oriented x 3, patient appears to be in mild distress. HEENT: Atraumatic, pupils are equal round reactive to light, extraocular movements are intact, nares are clear, there is no conjunctival pallor. Throat is clear without any exudates, erythema, tonsillar enlargement or uvular deviation HEART: Regular rate and rhythm without murmur, clicks, rubs. Pulses are equal in upper and lower extremities, nontender on palpation of chest. LUNGS:Lungs slightly coarse bilaterally auscultation, no wheezes, rales, crackles, chest moves symmetrically, no tachypnea or accessory muscle use. Speaks in full sentences. ABD:bowel sounds normal, soft, non-tender, no guarding, rebound, rigidity, no masses noted, no hepatosplenomegaly :No CVA tenderness BACK: No cervical, thoracic or lumbar vertebral point tenderness. Patient has normal range of motion. Muscle strength is 5/5 in upper and lower extremities, Dorsalis pedis and tibialis pulses are 2+ and lower extremities. Sensation is intact in the upper and lower extremities. MSCL: Non-tender, no muscle atrophy, muscles strength 5/5 upper and lower extre mities, full range of motion, normal gait NEURO:CN 2-12 intact, sensation normal. SKIN: Patient has various areas of ecchymosis on upper and lower extremities. Not appreciated on his torso. Initial Vital Signs Initial Vital Signs: Vital Signs Temperature 97.7 F 02/10/23 10:44 Pulse Rate 82 02/10/23 10:44 Respiratory Rate 19 02/10/23 10:44 Blood Pressure 144/85 H 02/10/23 10:44 Pulse Oximetry 97 02/10/23 10:44 Oxygen Delivery Method Room Air 02/10/23 10:44 Course Orders Ordered: ED Orders 02/10/23 11:05 CBC Auto Diff [Complete Blood Count AUTO DIFF] Stat CMP [Comprehensive Metabolic Panel] Stat ETOH [Ethanol (ETOH)] Stat Lipase Stat MAG [Magnesium] Stat PTT Partial Thromboplastin Zackary Stat Prothrombin Time INR Stat TSH w/ Reflex to FT4 Stat 02/10/23 11:20 CT head/brain wo con Stat Chest [XR chest 1V] Stat 02/10/23 11:57 EKG-12 Lead Stat 02/10/23 12:10 Urine Culture Stat Urine Drug Screen, Rapid Stat Urine Microscopic Stat 02/10/23 12:48 Consult to [facility] [place] [facility] [employer] Stat Discontinued Medications Nitrofurantoin Macrocrystals (Nitrofurantoin Er 100 Mg Capsule) 100 mg PO NOW ONE Stop: 02/10/23 12:51 Last Admin: 02/10/23 12:59 Dose: 100 mg Documented By: LUCAS Vital Signs Vital signs: Vital Signs - 8 hr 02/10/23 10:44 02/10/23 12:09 02/10/23 12:10 Temperature 97.7 F Pulse Rate 82 84 83 Respiratory Rate 19 Blood Pressure 144/85 H Pulse Oximetry 97 98 97 Oxygen Delivery Method Room Air 02/10/23 12:10 02/10/23 12:15 02/10/23 12:15 Temperature Pulse Rate 76 Respiratory Rate Blood Pressure 152/81 H 142/79 H Pulse Oximetry 97 Oxygen Delivery Method 02/10/23 12:30 02/10/23 12:30 02/10/23 12:45 Temperature Pulse Rate 73 75 Respiratory Rate Blood Pressure 141/90 H Pulse Oximetry 94 97 Oxygen Delivery Method 02/10/23 12:45 02/10/23 13:00 02/10/23 13:00 Temperature Pulse Rate 74 Respiratory Rate Blood Pressure 147/94 H 136/84 Pulse Oximetry 96 Oxygen Delivery Method MDM - Fall Lab Data 02/10/23 11:05 02/10/23 11:05 Labs: Lab Results 02/10/23 02/10/23 02/10/23 Range/Units 11:05 11:05 11:05 WBC 6.6 (4.5-11.0) X10^3/uL RBC 4.65 (4.5-5.9) X10^6/uL Hgb 15.5 (13.5-17.5) g/dL Hct 43.9 (41-53) % MCV 94.5 (80-100) fL MCH 33.4 (26-34) PG MCHC 35.3 (30-36) % RDW 13.7 (11.6-14.8) % Plt Count 180 (150-400) X10^3/uL Neut % (Auto) 69.4 (50-75) % Lymph % (Auto) 18.9 L (25-40) % [place] % (Auto) 10.2 (3-14) % Eos % (Auto) 0.3 L (2-4) % Baso % (Auto) 1.2 (0-2) % Neut # (Auto) 4600 (5811-4508) /uL Lymph # (Auto) 1300 (0992-3695) /uL [place] # (Auto) 700 (0-900) /uL Eos # (Auto) 0 (0-450) /uL Baso # (Auto) 100 (0-100) /uL PT 11.2 (10.1-12.7) SECONDS INR 1.0 (0.9-1.3) APTT 30 (26-36) SECONDS Sodium 132 L (137-145) mmol/L Potassium 4.4 (3.4-5.1) mmol/L Chloride 98 (98-107) mmol/L Carbon Dioxide 28 (22-32) mmol/L BUN 4 L (9-20) mg/dL Creatinine 0.48 L (0.66-1.25) mg/dL Estimated GFR > 60 (>60) mL/min BUN/Creatinine Ratio 8.3 (6-22) Glucose 90 (80-110) mg/dL Calcium 8.2 L (8.4-10.2) mg/dL Magnesium 1.8 (1.6-2.3) mg/dL Total Bilirubin 1.2 (0.2-1.3) mg/dL AST 54 (17-59) IU/L ALT 22 (<50) IU/L Alkaline Phosphatase 150 H (38-126) U/L Total Protein 7.1 (6.3-8.2) g/dL Albumin 3.8 (3.5-5.0) g/dL Globulin 3.3 (1.7-4.1) g/dL Albumin/Globulin Ratio 1.2 (1.0-2.8) Lipase 98 (23-300) U/L TSH (0.47-4.68) uIU/mL Urine RBC (0-5/HPF) Urine WBC (0-5/HPF) Ur Squamous Epith Cells (0-5/HPF) Urine Bacteria (None) Ur Culture Indicated? U Opiates 300ng/mL cut (Negative) Ur Oxycodone Screen (Negative) Urine Methadone Screen (Negative) Ur Barbiturates Screen (Negative) U Tricyclic Antidepress (Negative) Ur Phencyclidine Scrn (Negative) Ur Amphetamines Screen (Negative) U Methamphetamines Scrn (Negative) Ur MDMA Scrn (Ecstasy) (Negative) U Benzodiazepines Scrn (Negative) Urine Cocaine Screen (Negative) U Marijuana (THC) Screen (Negative) Ethyl Alcohol 173 H ( - 10) mg/dL 02/10/23 02/10/23 02/10/23 Range/Units 11:05 12:10 12:10 WBC (4.5-11.0) X10^3/uL RBC (4.5-5.9) X10^6/uL Hgb (13.5-17.5) g/dL Hct (41-53) % MCV (80-100) fL MCH (26-34) PG MCHC (30-36) % RDW (11.6-14.8) % Plt Count (150-400) X10^3/uL Neut % (Auto) (50-75) % Lymph % (Auto) (25-40) % [place] % (Auto) (3-14) % Eos % (Auto) (2-4) % Baso % (Auto) (0-2) % Neut # (Auto) (6097-1206) /uL Lymph # (Auto) (6047-2561) /uL [place] # (Auto) (0-900) /uL Eos # (Auto) (0-450) /uL Baso # (Auto) (0-100) /uL PT (10.1-12.7) SECONDS INR (0.9-1.3) APTT (26-36) SECONDS Sodium (137-145) mmol/L Potassium (3.4-5.1) mmol/L Chloride (98-107) mmol/L Carbon Dioxide (22-32) mmol/L BUN (9-20) mg/dL Creatinine (0.66-1.25) mg/dL Estimated GFR (>60) mL/min BUN/Creatinine Ratio (6-22) Glucose (80-110) mg/dL Calcium (8.4-10.2) mg/dL Magnesium (1.6-2.3) mg/dL Total Bilirubin (0.2-1.3) mg/dL AST (17-59) IU/L ALT (<50) IU/L Alkaline Phosphatase (38-126) U/L Total Protein (6.3-8.2) g/dL Albumin (3.5-5.0) g/dL Globulin (1.7-4.1) g/dL Albumin/Globulin Ratio (1.0-2.8) Lipase (23-300) U/L TSH 2.39 (0.47-4.68) uIU/mL Urine RBC None seen (0-5/HPF) Urine WBC 30-100/hpf H (0-5/HPF) Ur Squamous Epith Cells 0-1 /hpf (0-5/HPF) Urine Bacteria Many (>30) H (None) Ur Culture Indicated? Specimen cultured U Opiates 300ng/mL cut Negative (Negative) Ur Oxycodone Screen Negative (Negative) Urine Methadone Screen Negative (Negative) Ur Barbiturates Screen Negative (Negative) U Tricyclic Antidepress Negative (Negative) Ur Phencyclidine Scrn Negative (Negative) Ur Amphetamines Screen Negative (Negative) U Methamphetamines Scrn Negative (Negative) Ur MDMA Scrn (Ecstasy) Negative (Negative) U Benzodiazepines Scrn Negative (Negative) Urine Cocaine Screen Negative (Negative) U Marijuana (THC) Screen Negative (Negative) Ethyl Alcohol ( - 10) mg/dL Urine Dip Bedside Urine Glucose Negative Bedside Urine Bilirubin - Negative Bedside Urine Ketone - Negative Urine Specific [place] 1.015 Bedside Urine Occult Blood - Negative Bedside Urine pH 6.0 Bedside Urine Protein - Negative Bedside Urine Urobilinogen - Negative Bedside Urine Nitrite + Positive Bedside Urine Leukocytes +++ [address] scan - head: Radiologist's Impression: [place] [address] CT Scan Report Signed Patient: Shmuel Simpson I MR#: [id number] : 1955 Acct:[id number] Age/Sex: 67 / M Date of Service: 02/10/23 Loc: ED Accession Number: [id number] ?? Procedure: CT head/brain wo con Ordering Provider: Hemalatha Hand D.O. PROCEDURE:? CT HEAD/BRAIN WO CON ? INDICATIONS:? weakness, falling a lot, etoh history ? TECHNIQUE:? Noncontrast 4.5 mm thick angled axial sections acquired from the foramen magnum to the vertex, with coronal and sagittal reformats.? For radiation dose reduction, the following was used:? automated exposure control, adjustment of mA and/or kV according to patient size.? ? COMPARISON:? [facility], CT, CT HEAD/BRAIN WO CON, 09/06/2022, 13:06. ? FINDINGS:? Image quality:? Excellent.? ? CSF spaces:? Basal cisterns are patent.? No extra-axial fluid collections.? The ventricles are symmetric in size and shape.? ? Brain:? No intracranial bleeds or masses.? There is cerebral volume loss for age, with resultant ventricular and sulcal prominence.? There are moderate to severe periventricular and deep white matter chronic small vessel ischemic changes.? 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 There is intracranial internal carotid artery atherosclerosis.? Extensive vertebral basilar atherosclerotic calcifications. ? Skull and face:? Calvarium and visualized facial bones appear intact, without suspicious lesions.? ? Sinuses:? Visualized sinuses and mastoids are clear.? ? IMPRESSION:? ? 1. Age-related volume loss, moderate to severe small vessel ischemic change, old bilateral lacunar infarctions. ? 2. Extensive vertebral basilar atherosclerotic calcifications. ? 3. No acute intracranial process. ? ? Dictated by: Prasad Spears M.D. on 02/10/2023 at 12:27 ? ? Approved by: Prasad Spears M.D. on 02/10/2023 at 12:29?? Chest x-ray: Radiologist's Impression: No acute cardiopulmonary abnormality. Old healed left-sided rib fracture noted on chest x-ray read by Dr. Huggins. Report did not transfer over from PACS to EMR but able to visualize report and imaging myself. ECG Data Attestation: I personally reviewed and interpreted this ECG as follows: Prior ECG tracings: available for review Interpretation: Sinus rhythm frequent PVCs. Rate 88 UT 160 QRS 82 and QTC 462. No acute ST elevation appreciated nonspecific change. Patient has prior from 05/16/2022 for comparison. [facility] Narrative Medical decision making narrative: This is a 67-year-old male with chronic alcohol abuse, history of hypertension, dyslipidemia, hypothyroidism who presents for recurrent falls. Patient has quite a bit of bruising. No bony tenderness. Patient states he has hit his with his history of alcohol use and recurrent falls head CT was obtained which is negative. Chest x-ray shows old left-sided rib fracture. Workup shows slightly decreased sodium at 132 but not likely cause of his recurrent falls. Patient did mention urinary frequency which is new and his urine has nitrite positive suspicious for bladder infection which might be contributing to his falls. There is likely also component of alcohol abuse as he drinks a 6 pack and 3 shots of crown while daily. Patient does not wish for admission he wishes to return home, he is alert, appropriate appears competent to make this decision at this time. He is with caregiver who is there several days a week and they are in process of increasing that to a more daily visit. Patient's and I discussed still for observation he does not wish to stay. He ambulated into and out of the department he does have a walker. He is open to having are LADLE REPAIRER reach out to him. His caregiver notes that he gets meals on wheels in this does take some of his hours so he can not have as much caregiving hours. She does state and he states that he has a outpatient case manager he was supposed to meet with today. They will reach out to them to reschedule. Discussed return precautions. All questions answered. Discharge Plan Departure Patient Disposition: Home Clinical Impression: Acute UTI Instructions: DI for Urinary Tract Infection (UTI) Activity Restrictions/Additional Instructions: Your workup today does show signs of bladder infection. I have asked the medical social worker to reach out to you when she is back in the office about resources for assistance. Please touch base with your embedded case manager as well. Take antibiotics until completely gone. Prescription sent to [facility] in [place]. Please return for fevers, new or worsening lightheadedness or passing out, chest pain or shortness of breath, persistent vomiting, difficulty with urination or other new or concerning changes. Prescriptions: New nitrofurantoin monohyd/m-cryst [Macrobid] 100 mg capsule 100 mg PO Q12H 7 Days Qty: 14 0RF Rx Instructions: must administer with a meal/food No Action omeprazole 20 mg capsule,delayed release(DR/EC) 20 mg PO DAILY Qty: 30 6RF carvedilol 3.125 mg tablet 3.125 mg PO BID Qty: 180 3RF Rx Instructions: must administer with a meal/food levothyroxine [Synthroid] 75 mcg tablet 75 mcg PO QDAY Qty: 90 3RF trazodone 50 mg tablet 50 mg PO BEDTIME Patient Comments: TAKE ONE TABLET BY MOUTH NIGHTLY AT BEDTIME losartan 100 mg tablet 100 mg PO DAILY Patient Comments: TAKE ONE TABLET BY MOUTH ONE TIME DAILY Referrals: Miscellaneous,Doctor, MD [Primary Care Provider] - Stand Alone Forms: Patient Portal/API
--- NOTE | 2023-02-10 11:20 | DI.CT.S_ITS ---
PROCEDURE: CT HEAD/BRAIN WO CON INDICATIONS: weakness, falling a lot, etoh history TECHNIQUE: Noncontrast 4.5 mm thick angled axial sections acquired from the foramen magnum to the vertex, with coronal and sagittal reformats. For radiation dose reduction, the following was used: automated exposure control, adjustment of mA and/or kV according to patient size. COMPARISON: [facility], CT, CT HEAD/BRAIN WO CON, 09/06/2022, 13:06. FINDINGS: Image quality: Excellent. CSF spaces: Basal cisterns are patent. No extra-axial fluid collections. The ventricles are symmetric in size and shape. Brain: No intracranial bleeds or masses. There is cerebral volume loss for age, with resultant ventricular and sulcal prominence. There are moderate to severe periventricular and deep white matter chronic small vessel ischemic changes. 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 There is intracranial internal carotid artery atherosclerosis. Extensive vertebral basilar atherosclerotic calcifications. Skull and face: Calvarium and visualized facial bones appear intact, without suspicious lesions. Sinuses: Visualized sinuses and mastoids are clear. IMPRESSION: 1. Age-related volume loss, moderate to severe small vessel ischemic change, old bilateral lacunar infarctions. 2. Extensive vertebral basilar atherosclerotic calcifications. 3. No acute intracranial process. Dictated by: Prasad Spears M.D. on 02/10/2023 at 12:27 Approved by: Prasad Spears M.D. on 02/10/2023 at 12:29
--- NOTE | 2023-02-10 11:20 | DI.RAD.S_ITS ---
PROCEDURE: XR CHEST 1V INDICATIONS: Weakness, fall. TECHNIQUE: One view of the chest was acquired. COMPARISON: [facility], CR, XR CHEST 1V, 09/06/2022, 10:42. [facility], CR, XR CHEST 1V, 03/17/2022, 14:29. [facility], CR, XR CHEST 1V, 03/08/2022, 16:24. FINDINGS: Surgical changes and devices: None. Lungs and pleura: Lungs are clear. No pleural effusions or pneumothorax. Mediastinum: Mediastinal contours appear normal. Heart size is normal. Bones and chest wall: No suspicious bony lesions. Overlying soft tissues appear unremarkable. Old healed left-sided rib fracture noted. IMPRESSION: No acute cardiopulmonary abnormality. Approved by: Edward Huggins M.D. on 02/10/2023 at 12:20
[2023-02-10 11:29] LABS: Add Manual Diff / Slide Review NO; Basophils Absolute Auto 100 /uL (0-100); Basophils Percent Auto 1.2 % (0-2); Eosinophils Absolute Auto 0 /uL (0-450); Eosinophils Percent Auto 0.3 % (2-4); Hematocrit 43.9 % (41-53); Hemoglobin 15.5 g/dL (13.5-17.5); Lymphocytes Absolute Auto 1300 /uL (1100-4500); Lymphocytes Percent Auto 18.9 % (25-40); Mean Corpuscular HGB Conc 35.3 % (30-36); Mean Corpuscular Hemoglobin 33.4 PG (26-34); Mean Corpuscular Volume 94.5 fL (80-100); Monocytes Absolute Auto 700 /uL (0-900); Monocytes Percent Auto 10.2 % (3-14); Neutrophils Absolute Auto 4600 /uL (1500-7000); Neutrophils Percent Auto 69.4 % (50-75); Platelet Count 180 X10^3/uL (150-400); Red Blood Cell Count 4.65 X10^6/uL (4.5-5.9); Red Cell Distribution Width 13.7 % (11.6-14.8); White Blood Cell Count 6.6 X10^3/uL (4.5-11.0)
[2023-02-10 11:46] LABS: Alanine Aminotransferase 22 IU/L (<50); Albumin 3.8 g/dL (3.5-5.0); Albumin Globulin Ratio 1.2 (1.0-2.8); Alkaline Phosphatase 150 U/L (38-126); Aspartate Aminotransferase 54 IU/L (17-59); BUN Creatinine Ratio 8.3 (6-22); Bilirubin Total 1.2 mg/dL (0.2-1.3); Blood Urea Nitrogen 4 mg/dL (9-20); Calcium 8.2 mg/dL (8.4-10.2); Carbon Dioxide 28 mmol/L (22-32); Chloride 98 mmol/L (98-107); Estimated Glomerular Filt Rate > 60 mL/min (>60); Ethanol (ETOH) 173 mg/dL; Globulin 3.3 g/dL (1.7-4.1); Glucose 90 mg/dL (80-110); HEMOLYSIS < 15 (0-50); Lipase 98 U/L (23-300); Magnesium 1.8 mg/dL (1.6-2.3); Potassium 4.4 mmol/L (3.4-5.1); Sodium 132 mmol/L (137-145); Total Protein 7.1 g/dL (6.3-8.2)
[2023-02-10 11:53] LABS: Prothrombin Time 11.2 SECONDS (10.1-12.7)
[2023-02-10 11:55] LABS: PTT Partial Thromboplastin Tim 30 SECONDS (26-36)
[2023-02-10 12:17] LABS: UR Morphine/Opiate cutoff 300 Negative (Negative); Ur Creatinine Normal (Normal); Ur Specific Gravity Normal (Normal); Urine Amphetamines Negative (Negative); Urine Barbiturates Negative (Negative); Urine Benzodiazepines Negative (Negative); Urine Cocaine Negative (Negative); Urine MDMA Negative (Negative); Urine Methadone Negative (Negative); Urine Methamphetamines Negative (Negative); Urine Oxycodone Negative (Negative); Urine Phencyclidine Negative (Negative); Urine Tetrahydrocannabinol Negative (Negative); Urine Tricyclic Antidepressant Negative (Negative); Urine pH Normal (Normal)
[2023-02-10 12:18] LABS: TSH w/ Reflex to FT4 2.39 uIU/mL (0.47-4.68)
[2023-02-10 12:20] LABS: Bacteria Urine Many (>30); Culture Indicated Urine Specimen Cultured; RBC Urine None Seen (0-5/HPF); Squamous Epithelial Cell Urine 0-1 /HPF (0-5/HPF); WBC Urine 30-100/HPF (0-5/HPF)
[2023-02-10] MEDS: NITROFURANTOIN ER 100 MG CAPSULE PO (12:59)
== END 2023-02-10 13:17 | disposition home or self-care (01) ==
PROVIDERS: Emergency Provider Emergency Medicine
DX: N39.0 Urinary tract infection, site not specified (principal); S80.12XA Contusion of left lower leg, initial encounter; S80.11XA Contusion of right lower leg, initial encounter; S40.022A Contusion of left upper arm, initial encounter; S40.021A Contusion of right upper arm, initial encounter; R29.6 Repeated falls; R07.81 Pleurodynia; W18.30XA Fall on same level, unspecified, initial encounter
CPT/HCPCS: 36415; 70450; 71045; 80053; 80305; 80320; 81003; 81015; 83690; 83735; 84443; 85025; 85610; 85730; 87077; 87086; 87186; 93005; 99284

== ENCOUNTER 2023-02-24 09:56 | Emergency (ER) | payer MEDICARE, MEDICAID, SELFPAY ==
[2020-02-23 11:45] VITALS: PULSE 67; RESP 20; O2SAT 100
[2023-02-24 10:14] VITALS: BP 172/97; PULSE 65; RESP 18; TEMP 37.1; O2SAT 95; BMI 21.5
--- NOTE | 2023-02-24 10:19 | ED.WEAKNESS ---
HPI - Weakness General Chief complaint: Weakness Stated complaint: Weakness,recent pneumonia,not taking meds Time Seen by Provider: 02/24/23 09:58 Source: patient and EMS Mode of arrival: EMS History of Present Illness HPI Narrative: Patient 67-year-old male history of chronic alcohol abuse hypothyroid hypertension, paroxysmal atrial fibrillation presenting today with generalized weakness. He was seen evaluated here on February 10 for frequent falls diagnosed with a UTI. He reports that he does not always take his antibiotic he says he just forgets. He is sent here today by caregiver who reports that he is weaker than normal. He has no complaints and would like to go home. He reports that the caregiver comes most days of the week but stays for only a couple of hours. He ambulates with a walker. Denies any falling chest pain abdominal pain nausea vomiting or any other symptoms. He reports that he has a cough it has a chronic cough from smoking it is not any worse normal. Related Data Home Medications Medication Instructions Recorded Confirmed losartan 100 mg tablet 100 mg PO DAILY 09/20/22 09/20/22 trazodone 50 mg tablet 50 mg PO BEDTIME 09/20/22 09/20/22 Previous Rx's Medication Instructions Recorded omeprazole 20 mg capsule,delayed 20 mg PO DAILY #30 caps 05/25/21 release carvedilol 3.125 mg tablet 3.125 mg PO BID #180 tabs 04/15/22 levothyroxine 75 mcg tablet 75 mcg PO QDAY #90 tabs 04/15/22 (Synthroid) Allergies Allergy/AdvReac Type Severity Reaction Status Date / Time ciprofloxacin [From CIPRO] Allergy Severe SWELLING Verified 02/24/23 10:17 IN HANDS, ARMS, LEGS AND FEET pantoprazole AdvReac Intermediate n/v, Verified 02/24/23 10:17 omeprazole okay Review of Systems Review of Systems ROS Unobtainable: All systems reviewed & are unremarkable except as noted in HPI and below Patient History Medical History Acute hyponatremia Alcohol dependence Alcoholism Anoxic brain injury Cardiomyopathy Cataracts, bilateral (2007) Chronic cough (1999) COPD (chronic obstructive pulmonary disease) Dislocated elbow (2000) Dislocated shoulder (2001) Eczema (2017) Elevated liver function tests Essential hypertension Fractures (~1964) GERD (gastroesophageal reflux disease) Hypothyroidism Impaired vision Intertrochanteric fracture of left hip Paroxysmal atrial fibrillation Pulmonary nodule (~07/2019) Surgical History History of cataract removal with insertion of prosthetic lens History of nasal surgery (1963) History of repair of hiatal hernia Hx of hernia repair (1995) Family History Father History of arteriosclerotic cardiovascular disease History of emphysema Mother Cancer Grandfather No problems noted. Grandmother Stroke Grandfather No problems noted. Grandmother No problems noted. Social History household members: family and none Smoking Status: Current every day smoker Tobacco: How many years used: 22 quit status: not considering quitting second hand exposure: No alcohol intake: current substance use type: does not use Smoking Status: Current every day smoker tobacco type: cigarettes alcohol intake frequency: 3 or more drinks per day Alcohol type: beer and hard liquor Substance Use Type: does not use Exam Initial Vital Signs Initial Vital Signs: Vital Signs Temperature 98.7 F 02/24/23 10:14 Pulse Rate 65 02/24/23 10:14 Respiratory Rate 18 02/24/23 10:14 Blood Pressure 172/97 H 02/24/23 10:14 Pulse Oximetry 95 02/24/23 10:14 Oxygen Delivery Method Room Air 02/24/23 10:14 GENERAL: Alert 59-year-old male mild slurring of speech and in no acute distress. HEENT: Head atraumatic,EOMI, pupils reactive, face symmetric, moist mucous membranes CARDIOVASCULAR: Regular rate and rhythm without murmurs, rubs or gallops. RESPIRATORY: Breath sounds equal bilaterally, no wheezes rales or rhonchi. ABDOMEN: Soft, nontender. Normoactive bowel sounds all 4 quadrants. No guarding or rebound. EXTREMITIES: Normal range of motion, no clubbing or edema. Neurovascularly intact NEUROLOGICAL: Alert and oriented x4.Normal gait and speech. Moving all extremities SKIN: Warm, dry, no laceration, no petechiae, no rashes or lesions. Course Orders Ordered: ED Orders 02/24/23 10:10 Acetaminophen Stat Complete Blood Count AUTO DIFF Stat Comprehensive Metabolic Panel Stat ETOH [Ethanol (ETOH)] Stat Lactate (Lactic Acid) Stat Procalcitonin Stat Salicylate Stat TSH [Thyroid Stimulating Hormone] Stat Troponin & CK Cardiac Panel Stat 02/24/23 10:26 CT head/brain wo con Stat XR chest 1V Stat 02/24/23 10:50 Urinalysis and Microscopic Stat Urine Drug Screen, Rapid Stat 02/24/23 10:55 Blood Culture Stat Covid-19 + FLU A/B + RSV - PCR Stat 02/24/23 11:15 EKG-12 Lead Stat Vital Signs Vital signs: Vital Signs - 8 hr 02/24/23 10:14 02/24/23 11:18 02/24/23 11:28 Temperature 98.7 F Pulse Rate 65 61 62 Respiratory Rate 18 20 20 Blood Pressure 172/97 H 146/90 H Pulse Oximetry 95 98 Oxygen Delivery Method Room Air Room Air 02/24/23 11:30 02/24/23 11:30 Temperature Pulse Rate 61 Respiratory Rate 19 Blood Pressure 151/87 H Pulse Oximetry 99 Oxygen Delivery Method Room Air MDM - Weakness Lab Data 02/24/23 10:10 02/24/23 10:10 Labs: Lab Results 02/24/23 02/24/23 02/24/23 Range/Units 10:10 10:10 10:10 WBC 4.6 (4.5-11.0) X10^3/uL RBC 4.49 L (4.5-5.9) X10^6/uL Hgb 14.7 (13.5-17.5) g/dL Hct 42.8 (41-53) % MCV 95.4 (80-100) fL MCH 32.7 (26-34) PG MCHC 34.3 (30-36) % RDW 13.2 (11.6-14.8) % Plt Count 141 L (150-400) X10^3/uL Neut % (Auto) 47.0 L (50-75) % Lymph % (Auto) 36.3 (25-40) % [place] % (Auto) 13.9 (3-14) % Eos % (Auto) 1.6 L (2-4) % Baso % (Auto) 1.2 (0-2) % Neut # (Auto) 2200 (8418-4024) /uL Lymph # (Auto) 1700 (3889-1459) /uL [place] # (Auto) 600 (0-900) /uL Eos # (Auto) 100 (0-450) /uL Baso # (Auto) 100 (0-100) /uL Sodium 130 L (137-145) mmol/L Potassium 4.2 (3.4-5.1) mmol/L Chloride 96 L (98-107) mmol/L Carbon Dioxide 26 (22-32) mmol/L BUN 4 L (9-20) mg/dL Creatinine 0.45 L (0.66-1.25) mg/dL Estimated GFR > 60 (>60) mL/min BUN/Creatinine Ratio 8.9 (6-22) Glucose 86 (80-110) mg/dL Lactate 1.6 (0.7-2.1) mmol/L Calcium 8.1 L (8.4-10.2) mg/dL Total Bilirubin 0.8 (0.2-1.3) mg/dL AST 145 H (17-59) IU/L ALT 69 H (<50) IU/L Alkaline Phosphatase 136 H (38-126) U/L Total Creatine Kinase 61 (55-170) U/L CK-MB (CK-2) TNP CK-MB (CK-2) Rel Index TNP Troponin I < 0.012 (0.01-0.034) ng/mL Total Protein 6.9 (6.3-8.2) g/dL Albumin 3.6 (3.5-5.0) g/dL Globulin 3.3 (1.7-4.1) g/dL Albumin/Globulin Ratio 1.1 (1.0-2.8) Procalcitonin 0.04 (<0.5) ng/mL TSH (0.47-4.68) uIU/mL Urine Color Urine Appearance Urine pH (4.5-8.0) Ur Specific [place] (1.000-1.035) Urine Protein (Negative) Urine Glucose (UA) (Negative) g/dL Urine Ketones (NEGATIVE) Urine Occult Blood (Negative) Urine Nitrate (Negative) Urine Bilirubin (NEGATIVE) Urine Urobilinogen (0.2) E.U./dL Ur Leukocyte Esterase (NEGATIVE) Urine RBC (0-5/HPF) Urine WBC (0-5/HPF) Ur Squamous Epith Cells (0-5/HPF) Urine Bacteria (None) Ur Culture Indicated? Salicylates < 1.0 (<20) mg/dL U Opiates 300ng/mL cut (Negative) Ur Oxycodone Screen (Negative) Urine Methadone Screen (Negative) Acetaminophen < 10 (10-30) ug/mL Ur Barbiturates Screen (Negative) U Tricyclic Antidepress (Negative) Ur Phencyclidine Scrn (Negative) Ur Amphetamines Screen (Negative) U Methamphetamines Scrn (Negative) Ur MDMA Scrn (Ecstasy) (Negative) U Benzodiazepines Scrn (Negative) Urine Cocaine Screen (Negative) U Marijuana (THC) Screen (Negative) Ethyl Alcohol 232 H ( - 10) mg/dL SARS-CoV-2 (PCR) (Negative) Influenza A (RT-PCR) (NEGATIVE) Influenza B (RT-PCR) (NEGATIVE) RSV (PCR) (Negative) 02/24/23 02/24/23 02/24/23 Range/Units 10:10 10:50 10:50 WBC (4.5-11.0) X10^3/uL RBC (4.5-5.9) X10^6/uL Hgb (13.5-17.5) g/dL Hct (41-53) % MCV (80-100) fL MCH (26-34) PG MCHC (30-36) % RDW (11.6-14.8) % Plt Count (150-400) X10^3/uL Neut % (Auto) (50-75) % Lymph % (Auto) (25-40) % [place] % (Auto) (3-14) % Eos % (Auto) (2-4) % Baso % (Auto) (0-2) % Neut # (Auto) (8558-6269) /uL Lymph # (Auto) (1772-6392) /uL [place] # (Auto) (0-900) /uL Eos # (Auto) (0-450) /uL Baso # (Auto) (0-100) /uL Sodium (137-145) mmol/L Potassium (3.4-5.1) mmol/L Chloride (98-107) mmol/L Carbon Dioxide (22-32) mmol/L BUN (9-20) mg/dL Creatinine (0.66-1.25) mg/dL Estimated GFR (>60) mL/min BUN/Creatinine Ratio (6-22) Glucose (80-110) mg/dL Lactate (0.7-2.1) mmol/L Calcium (8.4-10.2) mg/dL Total Bilirubin (0.2-1.3) mg/dL AST (17-59) IU/L ALT (<50) IU/L Alkaline Phosphatase (38-126) U/L Total Creatine Kinase (55-170) U/L CK-MB (CK-2) CK-MB (CK-2) Rel Index Troponin I (0.01-0.034) ng/mL Total Protein (6.3-8.2) g/dL Albumin (3.5-5.0) g/dL Globulin (1.7-4.1) g/dL Albumin/Globulin Ratio (1.0-2.8) Procalcitonin (<0.5) ng/mL TSH 2.22 (0.47-4.68) uIU/mL Urine Color Yellow Urine Appearance Clear Urine pH 6.5 (4.5-8.0) Ur Specific [place] <=1.005 (1.000-1.035) Urine Protein Negative (Negative) Urine Glucose (UA) Negative (Negative) g/dL Urine Ketones Negative (NEGATIVE) Urine Occult Blood Negative (Negative) Urine Nitrate Negative (Negative) Urine Bilirubin Negative (NEGATIVE) Urine Urobilinogen 0.2 (0.2) E.U./dL Ur Leukocyte Esterase Negative (NEGATIVE) Urine RBC 0-1/hpf (0-5/HPF) Urine WBC 0-1/hpf (0-5/HPF) Ur Squamous Epith Cells 0-1 /hpf (0-5/HPF) Urine Bacteria Occasional (0-1) D (None) Ur Culture Indicated? Cult not indicated Salicylates (<20) mg/dL U Opiates 300ng/mL cut Negative (Negative) Ur Oxycodone Screen Negative (Negative) Urine Methadone Screen Negative (Negative) Acetaminophen (10-30) ug/mL Ur Barbiturates Screen Negative (Negative) U Tricyclic Antidepress Negative (Negative) Ur Phencyclidine Scrn Negative (Negative) Ur Amphetamines Screen Negative (Negative) U Methamphetamines Scrn Negative (Negative) Ur MDMA Scrn (Ecstasy) Negative (Negative) U Benzodiazepines Scrn Negative (Negative) Urine Cocaine Screen Negative (Negative) U Marijuana (THC) Screen Negative (Negative) Ethyl Alcohol ( - 10) mg/dL SARS-CoV-2 (PCR) (Negative) Influenza A (RT-PCR) (NEGATIVE) Influenza B (RT-PCR) (NEGATIVE) RSV (PCR) (Negative) 02/24/23 Range/Units 10:55 WBC (4.5-11.0) X10^3/uL RBC (4.5-5.9) X10^6/uL Hgb (13.5-17.5) g/dL Hct (41-53) % MCV (80-100) fL MCH (26-34) PG MCHC (30-36) % RDW (11.6-14.8) % Plt Count (150-400) X10^3/uL Neut % (Auto) (50-75) % Lymph % (Auto) (25-40) % [place] % (Auto) (3-14) % Eos % (Auto) (2-4) % Baso % (Auto) (0-2) % Neut # (Auto) (6329-8112) /uL Lymph # (Auto) (7590-3775) /uL [place] # (Auto) (0-900) /uL Eos # (Auto) (0-450) /uL Baso # (Auto) (0-100) /uL Sodium (137-145) mmol/L Potassium (3.4-5.1) mmol/L Chloride (98-107) mmol/L Carbon Dioxide (22-32) mmol/L BUN (9-20) mg/dL Creatinine (0.66-1.25) mg/dL Estimated GFR (>60) mL/min BUN/Creatinine Ratio (6-22) Glucose (80-110) mg/dL Lactate (0.7-2.1) mmol/L Calcium (8.4-10.2) mg/dL Total Bilirubin (0.2-1.3) mg/dL AST (17-59) IU/L ALT (<50) IU/L Alkaline Phosphatase (38-126) U/L Total Creatine Kinase (55-170) U/L CK-MB (CK-2) CK-MB (CK-2) Rel Index Troponin I (0.01-0.034) ng/mL Total Protein (6.3-8.2) g/dL Albumin (3.5-5.0) g/dL Globulin (1.7-4.1) g/dL Albumin/Globulin Ratio (1.0-2.8) Procalcitonin (<0.5) ng/mL TSH (0.47-4.68) uIU/mL Urine Color Urine Appearance Urine pH (4.5-8.0) Ur Specific [place] (1.000-1.035) Urine Protein (Negative) Urine Glucose (UA) (Negative) g/dL Urine Ketones (NEGATIVE) Urine Occult Blood (Negative) Urine Nitrate (Negative) Urine Bilirubin (NEGATIVE) Urine Urobilinogen (0.2) E.U./dL Ur Leukocyte Esterase (NEGATIVE) Urine RBC (0-5/HPF) Urine WBC (0-5/HPF) Ur Squamous Epith Cells (0-5/HPF) Urine Bacteria (None) Ur Culture Indicated? Salicylates (<20) mg/dL U Opiates 300ng/mL cut (Negative) Ur Oxycodone Screen (Negative) Urine Methadone Screen (Negative) Acetaminophen (10-30) ug/mL Ur Barbiturates Screen (Negative) U Tricyclic Antidepress (Negative) Ur Phencyclidine Scrn (Negative) Ur Amphetamines Screen (Negative) U Methamphetamines Scrn (Negative) Ur MDMA Scrn (Ecstasy) (Negative) U Benzodiazepines Scrn (Negative) Urine Cocaine Screen (Negative) U Marijuana (THC) Screen (Negative) Ethyl Alcohol ( - 10) mg/dL SARS-CoV-2 (PCR) Negative (Negative) Influenza A (RT-PCR) Flu a negative (NEGATIVE) Influenza B (RT-PCR) Flu b negative (NEGATIVE) RSV (PCR) Negative (Negative) Imaging Data CT scan - head: Radiologist Impression: PROCEDURE:? CT HEAD/BRAIN WO CON ? INDICATIONS:? falls confusion ? TECHNIQUE:? Noncontrast 4.5 mm thick angled axial sections acquired from the foramen magnum to the vertex, with coronal and sagittal reformats.? For radiation dose reduction, the following was used:? automated exposure control, adjustment of mA and/or kV according to patient size.? ? COMPARISON:? [facility], CT, CT HEAD/BRAIN WO CON, 02/10/2023, 11:34. ? FINDINGS:? Image quality:? Excellent.? ? CSF spaces:? Basal cisterns are patent.? No extra-axial fluid collections.? The ventricles are symmetric in size and shape.? ? Brain:? No intracranial bleeds or masses.? There is cerebral volume loss for age, with resultant ventricular and sulcal prominence.? There are moderate periventricular and deep white matter chronic small vessel ischemic changes.? 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 There is intracranial internal carotid artery atherosclerosis.? There is extensive calcification of the distal vertebral arteries and basilar artery.? ? Skull and face:? Calvarium and visualized facial bones appear intact, without suspicious lesions.? ? Sinuses:? Visualized sinuses and mastoids are clear.? ? IMPRESSION:? ? 1. No acute intracranial process. ? 2. Age-related volume loss, moderate small vessel ischemic change, and old bilateral lacunar infarctions.? ? ? Dictated by: Prasad Spears M.D. on 02/24/2023 at 10:55 ? ? Chest x-ray: My Impression: No pneumonia Radiologist Impression: PROCEDURE:? XR CHEST 1V ? INDICATIONS:? weakness ? TECHNIQUE:? One view of the chest was acquired.? ? COMPARISON:? [facility], , XR CHEST 1V, 02/10/2023, 11:28. ? FINDINGS:? ? Surgical changes and devices:? None.? ? Lungs and pleura:? Lungs are clear.? No pleural effusions or pneumothorax.? ? Mediastinum:? Mediastinal contours appear normal.? Heart size is normal.? ? Bones and chest wall:? No suspicious bony lesions.? Overlying soft tissues appear unremarkable.? ? IMPRESSION:? No acute cardiopulmonary pathology. ? ? Dictated by: Jacek Barnett M.D. on 02/24/2023 at 11:35 ? ? ECG Data Interpretation: Sinus rhythm rate 60 MI interval 198 QRS [address] changes no T-wave inversions MDM Narrative Medical decision making narrative: Patient 67-year-old male multiple comorbidities including chronic alcohol use paroxysmal AFib currently in sinus rhythm hypothyroid presenting today with weakness. There is no evidence of infection. He previously had a UTI on the but no longer . No pneumonia. He is afebrile with stable vitals. Head CT is negative. He is found to have an elevated alcohol level but is able to speak clearly. There is no leukocytosis or evidence of sepsis. Electrolyte show mild hyponatremia with a sodium of 130 previously 132. Mildly elevated AST ALT without elevation in bilirubin. No right upper quadrant pain this is likely secondary to alcohol. At this time patient would like to go home, there is no need for admission or further workup at this time. Discharge Plan Departure Patient Disposition: Home Clinical Impression: Alcohol intoxication Instructions: Alcohol Use Disorder Activity Restrictions/Additional Instructions: *You have been diagnosed with alcohol intoxication *What to do: At this time no evidence of infection no need for further antibiotics. *Continue to take medications as directed *Follow up with your primary care provider in 2-3 days or call [phone] *Return to ER if you should have increased weakness falls significant confusion or any new, worsening or concerning symptoms Prescriptions: No Action omeprazole 20 mg capsule,delayed release(DR/EC) 20 mg PO DAILY Qty: 30 6RF carvedilol 3.125 mg tablet 3.125 mg PO BID Qty: 180 3RF Rx Instructions: must administer with a meal/food levothyroxine [Synthroid] 75 mcg tablet 75 mcg PO QDAY Qty: 90 3RF trazodone 50 mg tablet 50 mg PO BEDTIME Patient Comments: TAKE ONE TABLET BY MOUTH NIGHTLY AT BEDTIME losartan 100 mg tablet 100 mg PO DAILY Patient Comments: TAKE ONE TABLET BY MOUTH ONE TIME DAILY Referrals: Miscellaneous,Doctor, MD [Primary Care Provider] - Stand Alone Forms: Patient Portal/API
--- NOTE | 2023-02-24 10:26 | DI.RAD.S_ITS ---
PROCEDURE: XR CHEST 1V INDICATIONS: weakness TECHNIQUE: One view of the chest was acquired. COMPARISON: [facility], CR, XR CHEST 1V, 02/10/2023, 11:28. FINDINGS: Surgical changes and devices: None. Lungs and pleura: Lungs are clear. No pleural effusions or pneumothorax. Mediastinum: Mediastinal contours appear normal. Heart size is normal. Bones and chest wall: No suspicious bony lesions. Overlying soft tissues appear unremarkable. IMPRESSION: No acute cardiopulmonary pathology. Dictated by: Jacek Barnett M.D. on 02/24/2023 at 11:35 Approved by: Jacek Barnett M.D. on 02/24/2023 at 11:35
--- NOTE | 2023-02-24 10:26 | DI.CT.S_ITS ---
PROCEDURE: CT HEAD/BRAIN WO CON INDICATIONS: falls confusion TECHNIQUE: Noncontrast 4.5 mm thick angled axial sections acquired from the foramen magnum to the vertex, with coronal and sagittal reformats. For radiation dose reduction, the following was used: automated exposure control, adjustment of mA and/or kV according to patient size. COMPARISON: [facility], CT, CT HEAD/BRAIN WO CON, 02/10/2023, 11:34. FINDINGS: Image quality: Excellent. CSF spaces: Basal cisterns are patent. No extra-axial fluid collections. The ventricles are symmetric in size and shape. Brain: No intracranial bleeds or masses. There is cerebral volume loss for age, with resultant ventricular and sulcal prominence. There are moderate periventricular and deep white matter chronic small vessel ischemic changes. 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 There is intracranial internal carotid artery atherosclerosis. There is extensive calcification of the distal vertebral arteries and basilar artery. Skull and face: Calvarium and visualized facial bones appear intact, without suspicious lesions. Sinuses: Visualized sinuses and mastoids are clear. IMPRESSION: 1. No acute intracranial process. 2. Age-related volume loss, moderate small vessel ischemic change, and old bilateral lacunar infarctions. Dictated by: Prasad Spears M.D. on 02/24/2023 at 10:55 Approved by: Prasad Spaers M.D. on 02/24/2023 at 10:56
[2023-02-24 10:49] LABS: Add Manual Diff / Slide Review NO; Basophils Absolute Auto 100 /uL (0-100); Basophils Percent Auto 1.2 % (0-2); Eosinophils Absolute Auto 100 /uL (0-450); Eosinophils Percent Auto 1.6 % (2-4); Hematocrit 42.8 % (41-53); Hemoglobin 14.7 g/dL (13.5-17.5); Lymphocytes Absolute Auto 1700 /uL (1100-4500); Lymphocytes Percent Auto 36.3 % (25-40); Mean Corpuscular HGB Conc 34.3 % (30-36); Mean Corpuscular Hemoglobin 32.7 PG (26-34); Mean Corpuscular Volume 95.4 fL (80-100); Monocytes Absolute Auto 600 /uL (0-900); Monocytes Percent Auto 13.9 % (3-14); Neutrophils Absolute Auto 2200 /uL (1500-7000); Platelet Count 141 X10^3/uL (150-400); Red Blood Cell Count 4.49 X10^6/uL (4.5-5.9); Red Cell Distribution Width 13.2 % (11.6-14.8); White Blood Cell Count 4.6 X10^3/uL (4.5-11.0)
[2023-02-24 10:52] LABS: Lactate (Lactic Acid) 1.6 mmol/L (0.7-2.1)
[2023-02-24 10:55] LABS: Acetaminophen < 10 ug/mL (10-30); Alanine Aminotransferase 69 IU/L (<50); Albumin 3.6 g/dL (3.5-5.0); Albumin Globulin Ratio 1.1 (1.0-2.8); Alkaline Phosphatase 136 U/L (38-126); Aspartate Aminotransferase 145 IU/L (17-59); BUN Creatinine Ratio 8.9 (6-22); Bilirubin Total 0.8 mg/dL (0.2-1.3); Blood Urea Nitrogen 4 mg/dL (9-20); Calcium 8.1 mg/dL (8.4-10.2); Carbon Dioxide 26 mmol/L (22-32); Chloride 96 mmol/L (98-107); Creatine Kinase 61 U/L (55-170); Estimated Glomerular Filt Rate > 60 mL/min (>60); Ethanol (ETOH) 232 mg/dL; Globulin 3.3 g/dL (1.7-4.1); Glucose 86 mg/dL (80-110); HEMOLYSIS 21 (0-50); Potassium 4.2 mmol/L (3.4-5.1); Salicylate < 1.0 mg/dL (<20); Sodium 130 mmol/L (137-145); Total Protein 6.9 g/dL (6.3-8.2)
[2023-02-24 10:58] LABS: Appearance Urine UA CLEAR; Bilirubin Urine UA NEGATIVE (NEGATIVE); Color Urine UA YELLOW; Glucose Urine UA NEGATIVE (Negative); Ketones Urine UA NEGATIVE (NEGATIVE); Leukocyte Esterase Urine UA NEGATIVE (NEGATIVE); Nitrite Urine UA NEGATIVE (Negative); Occult Blood Urine UA NEGATIVE (Negative); Protein Urine UA NEGATIVE (Negative); Specific Gravity Urine UA <=1.005 (1.000-1.035); Urobilinogen Urine UA 0.2 E.U./dL (0.2); pH Urine UA 6.5 (4.5-8.0)
[2023-02-24 11:04] LABS: UR Morphine/Opiate cutoff 300 Negative (Negative); Ur Creatinine Normal (Normal); Ur Specific Gravity Normal (Normal); Urine Amphetamines Negative (Negative); Urine Barbiturates Negative (Negative); Urine Benzodiazepines Negative (Negative); Urine Cocaine Negative (Negative); Urine MDMA Negative (Negative); Urine Methadone Negative (Negative); Urine Methamphetamines Negative (Negative); Urine Oxycodone Negative (Negative); Urine Phencyclidine Negative (Negative); Urine Tetrahydrocannabinol Negative (Negative); Urine Tricyclic Antidepressant Negative (Negative); Urine pH Normal (Normal)
[2023-02-24 11:05] LABS: Troponin I < 0.012 ng/mL (0.01-0.034)
[2023-02-24 11:08] LABS: Bacteria Urine Occasional (0-1); Culture Indicated Urine Cult Not Indicated; RBC Urine 0-1/HPF (0-5/HPF); Squamous Epithelial Cell Urine 0-1 /HPF (0-5/HPF); WBC Urine 0-1/HPF (0-5/HPF)
[2023-02-24 11:10] LABS: Procalcitonin 0.04 ng/mL (<0.5)
[2023-02-24 11:18] VITALS: BP 146/90; PULSE 61; RESP 20; O2SAT 98
[2023-02-24 11:26] LABS: Thyroid Stimulating Hormone 2.22 uIU/mL (0.47-4.68)
[2023-02-24 11:28] VITALS: PULSE 62; RESP 20
[2023-02-24 11:30] VITALS: BP 151/87; PULSE 61; RESP 19; O2SAT 99
[2023-02-24 11:36] LABS: Influenza A - CEPHEID Flu A NEGATIVE (NEGATIVE); Influenza B - CEPHEID Flu B NEGATIVE (NEGATIVE); Respiratory Syncytial Virus Negative (Negative)
[2023-02-24 11:37] LABS: COVID-19 CEPHEID 4-PLEX PCR Negative (Negative)
== END 2023-02-24 11:41 | disposition home or self-care (01) ==
PROVIDERS: Emergency Provider Emergency Medicine
DX: F10.129 Alcohol abuse with intoxication, unspecified (principal); Y90.8 Blood alcohol level of 240 mg/100 ml or more; R07.9 Chest pain, unspecified; R47.81 Slurred speech; R53.1 Weakness; Z20.822 Contact with and (suspected) exposure to COVID-19; R41.0 Disorientation, unspecified; W19.XXXA Unspecified fall, initial encounter
CPT/HCPCS: 0241U; 36415; 70450; 71045; 80053; 80305; 80320; 80329; 81001; 82550; 83605; 84145; 84443; 84484; 85025; 87040; 93005; 93010; 99284; G0480

== ENCOUNTER 2023-03-02 13:52 | Emergency (ER) | payer MEDICARE, MEDICAID, SELFPAY ==
[2020-02-23 11:45] VITALS: PULSE 67; RESP 20; O2SAT 100
[2023-03-02 14:00] VITALS: BP 164/88; PULSE 66; RESP 18; TEMP 36.3; O2SAT 98; BMI 23.6
--- NOTE | 2023-03-02 14:40 | ED_ITS ---
HPI - Anxiety General Chief Complaint: Anxiety Stated Complaint: Racing Heart Time Seen by Provider: 03/02/23 14:15 Source: patient and EMS Mode of arrival: EMS History of Present Illness HPI narrative: 67-year-old male smoker with history of alcohol abuse presents by EMS with a chief complaint of palpitations and associated anxiety. He denies chest pain or shortness of breath. He is not dizzy nor weak or lightheaded. He denies any f ever or chills. He states that due to some miscommunication between he and his primary care he is not had his medications for many weeks or even months. EMS notes regular heart rate in the 70s with stable blood pressure Related Data Home Medications Medication Instructions Recorded Confirmed losartan 100 mg tablet 100 mg PO DAILY 09/20/22 09/20/22 trazodone 50 mg tablet 50 mg PO BEDTIME 09/20/22 09/20/22 Previous Rx's Medication Instructions Recorded omeprazole 20 mg capsule,delayed 20 mg PO DAILY #30 caps 05/25/21 release carvedilol 3.125 mg tablet 3.125 mg PO BID #180 tabs 04/15/22 levothyroxine 75 mcg tablet 75 mcg PO QDAY #90 tabs 04/15/22 (Synthroid) carvedilol 3.125 mg tablet 3.125 mg PO BID #60 tabs 03/02/23 losartan 100 mg tablet 100 mg PO DAILY #30 tabs 03/02/23 Allergies Allergy/AdvReac Type Severity Reaction Status Date / Time ciprofloxacin [From CIPRO] Allergy Severe SWELLING Verified 02/24/23 10:17 IN HANDS, ARMS, LEGS AND FEET pantoprazole AdvReac Intermediate n/v, Verified 02/24/23 10:17 omeprazole okay Review of Systems Review of Systems Narrative: GENERAL: Denies chills, fatigue, malaise, fever, sweats. HEENT: Denies sinus pain, ear pain, sore throat, difficulty swallowing, dizzin ess. RESPIRATORY: Denies dyspnea, cough, wheezing, hemoptysis, sputum. CARDIOVASCULAR: See HPI GASTROINTESTINAL: Denies nausea, vomiting, abdominal pain, diarrhea, constipation, melena. : Denies dysuria, frequency, incontinence, hematuria, urinary retention. MUSCULOSKELETAL: denies weakness, joint pain, or bony pain SKIN: Denies rash, skin lesions, or other NEUROLOGIC: See HPI PSYCHIATRIC: No concerning psychosocial issues. 12 point review of systems is negative except for those stated above Patient History Medical History Acute hyponatremia Alcohol dependence Alcoholism Anoxic brain injury Cardiomyopathy Cataracts, bilateral (2007) Chronic cough (1999) COPD (chronic obstructive pulmonary disease) Dislocated elbow (2000) Dislocated shoulder (2001) Eczema (2017) Elevated liver function tests Essential hypertension Fractures (~1963) GERD (gastroesophageal reflux disease) Hypothyroidism Impaired vision Intertrochanteric fracture of left hip Paroxysmal atrial fibrillation Pulmonary nodule (~07/2019) Surgical History History of cataract removal with insertion of prosthetic lens History of nasal surgery (1963) History of repair of hiatal hernia Hx of hernia repair (1995) Family History Father History of arteriosclerotic cardiovascular disease History of emphysema Mother Cancer Grandfather No problems noted. Grandmother Stroke Grandfather No problems noted. Grandmother No problems noted. Social History household members: family and none Smoking Status: Current every day smoker Tobacco: How many years used: 22 quit status: not considering quitting second hand exposure: No alcohol intake: current substance use type: does not use Smoking Status: Current every day smoker tobacco type: cigarettes alcohol intake frequency: 3 or more drinks per day Alcohol type: beer and hard liquor Substance Use Type: does not use Exam Narrative Exam Narrative: GENERAL: [67] year old patient appears stated age. Well-developed patient, in mild distress. Anxious. Alert and oriented x3, GCS 15. Speaking clearly without slurring HEAD: Atraumatic. Normocephalic. EYES: Pupils equal round and reactive. Extraocular motions intact. No scleral icterus. No injection or drainage. ENT: Nose without bleeding, purulent drainage. Throat without erythema, tonsillar hypertrophy or exudate. Airway patent. NECK: Trachea midline. Non tender CARDIOVASCULAR: Regular rate and rhythm without murmurs, gallops, or rubs. RESPIRATORY: Clear to auscultation. Breath sounds equal bilaterally. No wheezes, rales, or rhonchi. GASTROINTESTINAL: Abdomen soft, non-tender, nondistended. EXTREMITIES: No edema or joint tenderness. BACK: Nontender without deformity or crepitance. No flank tenderness. NEURO: AOx3. SKIN: No rash or erythema of visible areas Initial Vital Signs Initial Vital Signs: Vital Signs Temperature 97.4 F L 03/02/23 14:00 Pulse Rate 66 03/02/23 14:00 Respiratory Rate 18 03/02/23 14:00 Blood Pressure 164/88 H 03/02/23 14:00 Pulse Oximetry 98 03/02/23 14:00 Oxygen Delivery Method Room Air 03/02/23 14:00 Course Orders Ordered: ED Orders 03/02/23 14:04 EKG-12 Lead Stat Vital Signs Vital signs: Vital Signs - 8 hr 03/02/23 14:00 Temperature 97.4 F L Pulse Rate 66 Respiratory Rate 18 Blood Pressure 164/88 H Pulse Oximetry 98 Oxygen Delivery Method Room Air MDM - Anxiety Lab Data 03/02/23 14:52 03/02/23 14:52 Labs: Lab Results 03/02/23 03/02/23 03/02/23 Range/Units 14:52 14:52 14:52 WBC 3.7 L (4.5-11.0) X10^3/uL RBC 4.06 L (4.5-5.9) X10^6/uL Hgb 13.5 (13.5-17.5) g/dL Hct 38.6 L (41-53) % MCV 95.2 (80-100) fL MCH 33.3 (26-34) PG MCHC 34.9 (30-36) % RDW 12.6 (11.6-14.8) % Plt Count 162 (150-400) X10^3/uL Neut % (Auto) 39.7 L (50-75) % Lymph % (Auto) 44.6 H (25-40) % [place] % (Auto) 12.7 (3-14) % Eos % (Auto) 1.9 L (2-4) % Baso % (Auto) 1.1 (0-2) % Neut # (Auto) 1500 (9458-9209) /uL Lymph # (Auto) 1600 (3409-4679) /uL [place] # (Auto) 500 (0-900) /uL Eos # (Auto) 100 (0-450) /uL Baso # (Auto) 0 (0-100) /uL Sodium 129 L (137-145) mmol/L Potassium 3.6 (3.4-5.1) mmol/L Chloride 95 L (98-107) mmol/L Carbon Dioxide 25 (22-32) mmol/L BUN 3 L (9-20) mg/dL Creatinine 0.44 L (0.66-1.25) mg/dL Estimated GFR > 60 (>60) mL/min BUN/Creatinine Ratio 6.8 (6-22) Glucose 87 (80-110) mg/dL Calcium 7.7 L (8.4-10.2) mg/dL TSH 1.98 (0.47-4.68) uIU/mL Ethyl Alcohol 150 H ( - 10) mg/dL MDM Narrative Medical decision making narrative: [67] year old patient presents with palpitations and anxiety Multiple etiologies for patient's symptoms considered including, but not limited to: [Electrolyte abnormality versus thyroid abnormality versus anxiety versus arrhythmia versus other] Prior Charts reviewed in our EMR Primary Historian: patient Labs reviewed and interpreted by myself: No evidence of leukocytosis or left shift, no signs of anemia, slightly hyponatremic at 1:29 a.m., though not departed from his baseline, electrolytes otherwise within his normal limits. TSH within normal Patient's symptoms improved over duration of stay with above-stated therapies. Patient in a normal sinus rhythm in the 60s and 70s for the duration of his visit. History and physical exam are reassuring, labs without abnormalities requiring intervention. Patient has been medically noncompliance, prescriptions refilled. Relayed to the patient the importance of follow-up with his primary care provider. Patient understands and agrees with diagnosis and plan Findings and discharge diagnosis discussed with patient/family followed by verbalization of understanding Return precautions discussed with patient/family whom verbalize understanding of diagnosis and plan Discharge Plan Departure Patient Disposition: Home Clinical Impression: Heart palpitations Instructions: DI for Palpitations Activity Restrictions/Additional Instructions: *You have been diagnosed with [palpitations without significant abnormalities in history or physical exam. Furthermore, your labs are reassuring] *What to do: *Please continue to take your regular medications as directed. [ ] New medication prescriptions sent to your pharmacy: [ ] [x ] New medication written as a paper prescription [ ] No new medications given *Please follow up with your primary care provider in 2-3 days, call for an appointment. Let them know you were seen in the Emergency Department and that we ask that you be seen in follow up. We will electronically transmit a record of today's note if your PCP is in our system *If you do not have a primary care provider please contact the [facility] Resource line at [phone]. They will ask some questions about your medical history and help get you set up with a doctor in the community. *Return to Emergency Department if you should have any new, worsening or concerning symptoms, such as [fever greater than 101 F, shaking chills, worsening pain, persistent vomiting or other bothersome symptoms] Prescriptions: New carvedilol 3.125 mg tablet 3.125 mg PO BID Qty: 60 0RF Rx Instructions: must administer with a meal/food losartan 100 mg tablet 100 mg PO DAILY Qty: 30 0RF No Action omeprazole 20 mg capsule,delayed release(DR/EC) 20 mg PO DAILY Qty: 30 6RF carvedilol 3.125 mg tablet 3.125 mg PO BID Qty: 180 3RF Rx Instructions: must administer with a meal/food levothyroxine [Synthroid] 75 mcg tablet 75 mcg PO QDAY Qty: 90 3RF trazodone 50 mg tablet 50 mg PO BEDTIME Patient Comments: TAKE ONE TABLET BY MOUTH NIGHTLY AT BEDTIME losartan 100 mg tablet 100 mg PO DAILY Patient Comments: TAKE ONE TABLET BY MOUTH ONE TIME DAILY Referrals: Miscellaneous,Doctor, MD [Primary Care Provider] - Stand Alone Forms: Patient Portal/API
[2023-03-02 15:02] LABS: Add Manual Diff / Slide Review NO; Basophils Absolute Auto 0 /uL (0-100); Basophils Percent Auto 1.1 % (0-2); Eosinophils Absolute Auto 100 /uL (0-450); Eosinophils Percent Auto 1.9 % (2-4); Hematocrit 38.6 % (41-53); Hemoglobin 13.5 g/dL (13.5-17.5); Lymphocytes Absolute Auto 1600 /uL (1100-4500); Lymphocytes Percent Auto 44.6 % (25-40); Mean Corpuscular HGB Conc 34.9 % (30-36); Mean Corpuscular Hemoglobin 33.3 PG (26-34); Mean Corpuscular Volume 95.2 fL (80-100); Monocytes Absolute Auto 500 /uL (0-900); Monocytes Percent Auto 12.7 % (3-14); Neutrophils Absolute Auto 1500 /uL (1500-7000); Neutrophils Percent Auto 39.7 % (50-75); Platelet Count 162 X10^3/uL (150-400); Red Blood Cell Count 4.06 X10^6/uL (4.5-5.9); Red Cell Distribution Width 12.6 % (11.6-14.8); White Blood Cell Count 3.7 X10^3/uL (4.5-11.0)
[2023-03-02 15:14] LABS: BUN Creatinine Ratio 6.8 (6-22); Blood Urea Nitrogen 3 mg/dL (9-20); Calcium 7.7 mg/dL (8.4-10.2); Carbon Dioxide 25 mmol/L (22-32); Chloride 95 mmol/L (98-107); Estimated Glomerular Filt Rate > 60 mL/min (>60); Ethanol (ETOH) 150 mg/dL; Glucose 87 mg/dL (80-110); HEMOLYSIS < 15 (0-50); Potassium 3.6 mmol/L (3.4-5.1); Sodium 129 mmol/L (137-145)
[2023-03-02 15:44] LABS: Thyroid Stimulating Hormone 1.98 uIU/mL (0.47-4.68)
== END 2023-03-02 16:10 | disposition home or self-care (01) ==
PROVIDERS: Emergency Provider Emergency Medicine
DX: R00.2 Palpitations (principal)
CPT/HCPCS: 36415; 80048; 80320; 84443; 85025; 93005; 93010; 99281; 99284

== ENCOUNTER 2023-03-05 11:44 | Emergency (ER) | payer MEDICARE, MEDICAID, SELFPAY ==
[2020-02-23 11:45] VITALS: PULSE 67; RESP 20; O2SAT 100
--- NOTE | 2023-03-05 11:50 | PC.NURSE ---
Pt arrived naked. Pt placed in paper scrubs. Pts keys and wallets placed in bag and with pt. Pt escorted to waiting room.
[2023-03-05 11:57] VITALS: BP 169/89; PULSE 67; RESP 19; TEMP 36.8; O2SAT 99; BMI 20.7
[2023-03-05 14:26] VITALS: BP 180/92; PULSE 67; O2SAT 99
[2023-03-05] MEDS: LORazepam 0.5 MG TABLET 1 MG PO (15:01)
[2023-03-05] MEDS: ONDANSETRON 4 MG ODT SL (15:01)
[2023-03-05 15:02] VITALS: BP 183/90; PULSE 64
[2023-03-05] MEDS: LOSARTAN 50 MG TABLET 100 MG PO (15:02)
--- NOTE | 2023-03-05 15:02 | ED.RECABL ---
HPI - Recheck/Abnormal Lab/Rx <Clarice Michael PA-C - Last Filed: 03/05/23 16:48> General Chief Complaint: Recheck/Abnormal Lab/Rx Stated Complaint: anxiety, has not filled script Time Seen by Provider: 03/05/23 12:59 Source: EMS Mode of arrival: EMS History of Present Illness HPI narrative: This is a 67yo M w/ Hx of alcohol abuse, hypertension, cardiomyopathy acquired hypothyroid who presents with concern for feeling anxious and wanting medication refills. Patient endorses that he feels this morning he has been feeling anxious he is not had any chest pain shortness of breath dizziness, lightheadedness, vision change, one-sided weakness, headache or other symptoms he does feel like this feels similar to previous anxiety problems, says his last drink was this morning and he does drink about 3 drinks a day consistently. He endorses some mild nausea which he says is common for him. He also endorses generalized confusion that has been going on for at least a few weeks he states that he notes sometimes he will go out to smoke a cigarette and have to really think about it when he goes back to his apartment to remember where he needs to go. He also states he is had some chronic balance and gait issues that have been going on for months. He acknowledges he was in the emergency department recently and had a full workup stating ?they did everything?. Today he is hoping for prescriptions to be filled that were not feel that his most recent ER visit and something to help with his anxiety. He denies any other complaints or concerns. Related Data Home Medications Medication Instructions Recorded Confirmed trazodone 50 mg tablet 50 mg PO BEDTIME 09/20/22 09/20/22 Previous Rx's Medication Instructions Recorded levothyroxine 75 mcg tablet 75 mcg PO QDAY #90 tabs 04/15/22 (Synthroid) carvedilol 3.125 mg tablet 3.125 mg PO BID #60 tabs 03/02/23 losartan 100 mg tablet 100 mg PO DAILY #30 tabs 03/02/23 Allergies Allergy/AdvReac Type Severity Reaction Status Date / Time ciprofloxacin [From CIPRO] Allergy Severe SWELLING Verified 02/24/23 10:17 IN HANDS, ARMS, LEGS AND FEET pantoprazole AdvReac Intermediate n/v, Verified 02/24/23 10:17 omeprazole okay Review of Systems <Clarice Michael PA-C - Last Filed: 03/05/23 16:48> Review of Systems Narrative: See HPI Patient History <Clarice Michael PA-C - Last Filed: 03/05/23 16:48> Medical History Acute hyponatremia Alcohol dependence Alcoholism Anoxic brain injury Cardiomyopathy Cataracts, bilateral (2007) Chronic cough (1999) COPD (chronic obstructive pulmonary disease) Dislocated elbow (2000) Dislocated shoulder (2001) Eczema (2017) Elevated liver function tests Essential hypertension Fractures (~1963) GERD (gastroesophageal reflux disease) Hypothyroidism Impaired vision Intertrochanteric fracture of left hip Paroxysmal atrial fibrillation Pulmonary nodule (~07/2019) Surgical History History of cataract removal with insertion of prosthetic lens History of nasal surgery (1963) History of repair of hiatal hernia Hx of hernia repair (1995) Family History Father History of arteriosclerotic cardiovascular disease History of emphysema Mother Cancer Grandfather No problems noted. Grandmother Stroke Grandfather No problems noted. Grandmother No problems noted. Social History household members: family and none Smoking Status: Current every day smoker Tobacco: How many years used: 22 quit status: not considering quitting second hand exposure: No alcohol intake: current substance use type: does not use Smoking Status: Current every day smoker tobacco type: cigarettes alcohol intake frequency: 3 or more drinks per day Alcohol type: beer and hard liquor Substance Use Type: does not use Exam <Clarice Michael PA-C - Last Filed: 03/05/23 16:48> Narrative Exam Narrative: GENERAL: 67 year old patient appears stated age. Well-developed patient, in mild distress. HEAD: Atraumatic. Normocephalic. EYES: Pupils equal round and reactive. Extraocular motions intact. No scleral icterus. No injection or drainage. ENT: Nose without bleeding, purulent drainage. Airway patent. NECK: Trachea midline. Non tender CARDIOVASCULAR: Regular rate and rhythm without murmurs, gallops, or rubs. RESPIRATORY: Clear to auscultation. Breath sounds equal bilaterally. No wheezes, rales, or rhonchi. GASTROINTESTINAL: Abdomen soft, non-tender, nondistended. EXTREMITIES: No edema or joint tenderness. BACK: Nontender without deformity or crepitance. No flank tenderness. NEURO: Cranial nerves 2-12 intact. AOx3. Slightly unsteady gait baseline per patient and discharge door operator who is familiar with the patient. No tremors noted. SKIN: No rash or erythema of visible areas Initial Vital Signs Initial Vital Signs: Vital Signs Temperature 98.3 F 03/05/23 11:57 Pulse Rate 67 03/05/23 11:57 Respiratory Rate 19 03/05/23 11:57 Blood Pressure 169/89 H 03/05/23 11:57 Pulse Oximetry 99 03/05/23 11:57 Oxygen Delivery Method Room Air 03/05/23 11:57 <Mimi Brown DO - Last Filed: 03/05/23 18:35> Initial Vital Signs Initial Vital Signs: Vital Signs Temperature 98.3 F 03/05/23 11:57 Pulse Rate 67 03/05/23 11:57 Respiratory Rate 19 03/05/23 11:57 Blood Pressure 169/89 H 03/05/23 11:57 Pulse Oximetry 99 03/05/23 11:57 Oxygen Delivery Method Room Air 03/05/23 11:57 Course <Clarice Michael PA-C - Last Filed: 03/05/23 16:48> Orders Ordered: ED Orders 03/05/23 15:05 Urinalysis and Microscopic Stat Discontinued Medications Lorazepam (Lorazepam 0.5 Mg Tablet) 1 mg PO NOW ONE Stop: 03/05/23 14:42 Last Admin: 03/05/23 15:01 Dose: 1 mg Documented By: ZURDO Losartan Potassium (Losartan 50 Mg Tablet) 100 mg PO NOW ONE Stop: 03/05/23 14:44 Last Admin: 03/05/23 15:02 Dose: 100 mg Documented By: ZURDO Ondansetron HCl (Ondansetron 4 Mg Odt) 4 mg SL NOW ONE Stop: 03/05/23 14:42 Last Admin: 03/05/23 15:01 Dose: 4 mg Documented By: ZURDO Vital Signs Vital signs: Vital Signs - 8 hr 03/05/23 11:57 03/05/23 14:26 03/05/23 15:02 Temperature 98.3 F Pulse Rate 67 67 64 Respiratory Rate 19 Blood Pressure 169/89 H 180/92 H 183/90 H Pulse Oximetry 99 99 Oxygen Delivery Method Room Air Room Air 03/05/23 16:09 Temperature Pulse Rate 74 Respiratory Rate Blood Pressure 159/90 H Pulse Oximetry 98 Oxygen Delivery Method Room Air <Mimi Brown DO - Last Filed: 03/05/23 18:35> Orders Ordered: ED Orders 03/05/23 15:05 Urinalysis and Microscopic Stat Discontinued Medications Lorazepam (Lorazepam 0.5 Mg Tablet) 1 mg PO NOW ONE Stop: 03/05/23 14:42 Last Admin: 03/05/23 15:01 Dose: 1 mg Documented By: ZURDO Losartan Potassium (Losartan 50 Mg Tablet) 100 mg PO NOW ONE Stop: 03/05/23 14:44 Last Admin: 03/05/23 15:02 Dose: 100 mg Documented By: ZURDO Ondansetron HCl (Ondansetron 4 Mg Odt) 4 mg SL NOW ONE Stop: 03/05/23 14:42 Last Admin: 03/05/23 15:01 Dose: 4 mg Documented By: ZURDO Vital Signs Vital signs: Vital Signs - 8 hr 03/05/23 11:57 03/05/23 14:26 03/05/23 15:02 Temperature 98.3 F Pulse Rate 67 67 64 Respiratory Rate 19 Blood Pressure 169/89 H 180/92 H 183/90 H Pulse Oximetry 99 99 Oxygen Delivery Method Room Air Room Air 03/05/23 16:09 Temperature Pulse Rate 74 Respiratory Rate Blood Pressure 159/90 H Pulse Oximetry 98 Oxygen Delivery Method Room Air MDM - Recheck/Abnormal Lab/Rx <Clarice Michael PA-C - Last Filed: 03/05/23 16:48> Differential Diagnosis Differential diagnosis: Likely encounter for medication refill and other (Anxiety, alcohol dependence) Medical Records Attestation: I reviewed the patient's medical records. Lab Data Attestation: I reviewed the patient's lab results. Labs: Lab Results 03/05/23 Range/Units 15:05 Urine Color Yellow Urine Appearance Clear Urine pH 6.5 (4.5-8.0) Ur Specific [place] 1.010 (1.000-1.035) Urine Protein Negative (Negative) Urine Glucose (UA) Negative (Negative) g/dL Urine Ketones Negative (NEGATIVE) Urine Occult Blood Negative (Negative) Urine Nitrate Negative (Negative) Urine Bilirubin Negative (NEGATIVE) Urine Urobilinogen >=8.0 (0.2) E.U./dL Ur Leukocyte Esterase Negative (NEGATIVE) Urine RBC 0-1/hpf (0-5/HPF) Urine WBC 0-1/hpf (0-5/HPF) Ur Squamous Epith Cells 0-1 /hpf (0-5/HPF) Urine Bacteria None seen (None) Ur Culture Indicated? Cult not indicated Treatment and disposition Shared decision making:: Shared decision-making use indeterminate plan of care for the patient in the emergency department today and plan for outpatient follow-up. [facility] Narrative Medical decision making narrative: This is a 67-year-old gentleman with a history of alcohol dependence, frequent falls, current smoker, acquired hypothyroid, hypertension who presents today with concern for anxiety and wanting medication refills. Patient also endorses chronic issues with gait difficulty balance issues going on for months as well as some generalized confusion for a few weeks. Patient was seen in this emergency department 3 days ago with a full workup including labs at that time. Patient was given 2 prescriptions then and advised to follow up with his primary care provider, patient endorses he has not picked up these prescriptions yet and has not been taking his blood pressure medication or any of his other medications. He does state that he has a home caregiver that comes to see him once a week and also is a community paramedicine patient per discharge door operator here today who is familiar with the patient. Today we do obtain a urine sample from the patient, I have low suspicion for acute intracranial pathology and imaging and additional labs are not obtained. Patient is advised to follow up closely with his PCP and work with his caregiver on getting his prescriptions from the pharmacy as he himself does not drive. Discussed patient's prescriptions, he was sent in his cardiac and hypertension meds carvedilol and losartan by ED provider that saw him 3 days ago he has not yet pick these up. He does have a plan to pick these up with his caregiver assisting him, had improvement of his anxiety symptoms after he was given Ativan today in the emergency department. Patient's urine is unremarkable, his hypertension also improved after the Ativan and his losartan medication. Patient is advised to follow up closely with his PCP, return precautions provided, follow-up plan discussed, all questions answered. <Mimi Brown, DO - Last Filed: 03/05/23 18:35> Lab Data Labs: Lab Results 03/05/23 Range/Units 15:05 Urine Color Yellow Urine Appearance Clear Urine pH 6.5 (4.5-8.0) Ur Specific [place] 1.010 (1.000-1.035) Urine Protein Negative (Negative) Urine Glucose (UA) Negative (Negative) g/dL Urine Ketones Negative (NEGATIVE) Urine Occult Blood Negative (Negative) Urine Nitrate Negative (Negative) Urine Bilirubin Negative (NEGATIVE) Urine Urobilinogen >=8.0 (0.2) E.U./dL Ur Leukocyte Esterase Negative (NEGATIVE) Urine RBC 0-1/hpf (0-5/HPF) Urine WBC 0-1/hpf (0-5/HPF) Ur Squamous Epith Cells 0-1 /hpf (0-5/HPF) Urine Bacteria None seen (None) Ur Culture Indicated? Cult not indicated Discharge Plan Departure Patient Disposition: Home Clinical Impression: Anxiety Activity Restrictions/Additional Instructions: *You have been diagnosed with (no new diagnoses) *What to do: *Please continue to take your regular medications as directed. [ ] New medication prescriptions sent to your pharmacy: [ ] [ ] New medication written as a paper prescription [ X] No new medications given *Please follow up with your primary care provider in 2-3 days, call for an appointment. Let them know you were seen in the Emergency Department and that we ask that you be seen in follow up. We will electronically transmit a record of today's note if your PCP is in our system. I strongly recommend he follow up closely with your primary care provider for ongoing prescriptions or additional medications such as the trazodone that you requested today. I am not prescribing this for you as personally do not feel it is appropriate given UR a regular drinker of alcohol as it is not safe to take these medications together necessarily, also I think this is something that you should talk to your primary care provider about. We did give you your antihypertensive medication today in the emergency department as well as something to help with your anxiety it is very important that you case picker your prescriptions that were sent in a few days ago and take these on a regular basis. Your blood pressure was a little elevated when he came in today and it did improve after the medicines we gave you. Tugging to your primary care provider will also be helpful to discuss further evaluation and care regarding your other chronic symptoms. *If you do not have a primary care provider please contact the [facility] Resource line at [phone]. They will ask some questions about your medical history and help get you set up with a doctor in the community. *Return to Emergency Department if you should have any new, worsening or concerning symptoms, such as [fever greater than 101 F, shaking chills, worsening pain, persistent vomiting or other bothersome symptoms] Prescriptions: No Action levothyroxine [Synthroid] 75 mcg tablet 75 mcg PO QDAY Qty: 90 3RF trazodone 50 mg tablet 50 mg PO BEDTIME Patient Comments: TAKE ONE TABLET BY MOUTH NIGHTLY AT BEDTIME carvedilol 3.125 mg tablet 3.125 mg PO BID Qty: 60 0RF Rx Instructions: must administer with a meal/food losartan 100 mg tablet 100 mg PO DAILY Qty: 30 0RF Referrals: Miscellaneous,Doctor, [Primary Care Provider] - Stand Alone Forms: Patient Portal/API <Mimi Brown DO - Last Filed: 03/05/23 18:35> Cosign ED Attending Carolann Attestation: I was immediately available in the department for consultation. Documentation has been reviewed.
[2023-03-05 15:13] LABS: Appearance Urine UA CLEAR; Bilirubin Urine UA NEGATIVE (NEGATIVE); Color Urine UA YELLOW; Glucose Urine UA NEGATIVE (Negative); Ketones Urine UA NEGATIVE (NEGATIVE); Leukocyte Esterase Urine UA NEGATIVE (NEGATIVE); Nitrite Urine UA NEGATIVE (Negative); Occult Blood Urine UA NEGATIVE (Negative); Protein Urine UA NEGATIVE (Negative); Urobilinogen Urine UA >=8.0 E.U./dL (0.2); pH Urine UA 6.5 (4.5-8.0)
[2023-03-05 15:18] LABS: Bacteria Urine None Seen; Culture Indicated Urine Cult Not Indicated; RBC Urine 0-1/HPF (0-5/HPF); Squamous Epithelial Cell Urine 0-1 /HPF (0-5/HPF); WBC Urine 0-1/HPF (0-5/HPF)
[2023-03-05 16:09] VITALS: BP 159/90; PULSE 74; O2SAT 98
--- NOTE | 2023-03-05 16:10 | PC.NURSE ---
Pt reports that medicine helped and he is feeling less anxious.
== END 2023-03-05 16:58 | disposition home or self-care (01) ==
PROVIDERS: Emergency Provider Student in an Organized Health Care Education/Training Program
DX: F41.9 Anxiety disorder, unspecified (principal)
CPT/HCPCS: 81001; 99283

== ENCOUNTER → 2023-03-14 09:32 | Outpatient (CLI) | payer MEDICARE, MEDICAID, SELFPAY ==
[2020-02-23 11:45] VITALS: PULSE 67; RESP 20; O2SAT 100
[2023-03-14 10:03] LABS: Add Manual Diff / Slide Review NO; Basophils Absolute Auto 0 /uL (0-100); Basophils Percent Auto 0.6 % (0-2); Eosinophils Absolute Auto 100 /uL (0-450); Eosinophils Percent Auto 2.6 % (2-4); Hematocrit 41.2 % (41-53); Hemoglobin 14.6 g/dL (13.5-17.5); Lymphocytes Absolute Auto 1200 /uL (1100-4500); Lymphocytes Percent Auto 35.9 % (25-40); Mean Corpuscular HGB Conc 35.3 % (30-36); Mean Corpuscular Hemoglobin 33.6 PG (26-34); Mean Corpuscular Volume 95.2 fL (80-100); Monocytes Absolute Auto 400 /uL (0-900); Monocytes Percent Auto 12.7 % (3-14); Neutrophils Absolute Auto 1700 /uL (1500-7000); Neutrophils Percent Auto 48.2 % (50-75); Platelet Count 183 X10^3/uL (150-400); Red Blood Cell Count 4.33 X10^6/uL (4.5-5.9); Red Cell Distribution Width 12.4 % (11.6-14.8); White Blood Cell Count 3.5 X10^3/uL (4.5-11.0)
[2023-03-14 10:26] LABS: Alanine Aminotransferase 72 IU/L (<50); Albumin 4.1 g/dL (3.5-5.0); Albumin Globulin Ratio 1.3 (1.0-2.8); Alkaline Phosphatase 133 U/L (38-126); Aspartate Aminotransferase 124 IU/L (17-59); BUN Creatinine Ratio 9.1 (6-22); Bilirubin Total 1.4 mg/dL (0.2-1.3); Blood Urea Nitrogen 5 mg/dL (9-20); Calcium 8.7 mg/dL (8.4-10.2); Carbon Dioxide 27 mmol/L (22-32); Chloride 100 mmol/L (98-107); Cholesterol 169 mg/dL (140-199); Estimated Glomerular Filt Rate > 60 mL/min (>60); Gamma Glutamyl Transpeptidase 109 U/L (15-73); Globulin 3.2 g/dL (1.7-4.1); Glucose 81 mg/dL (80-110); Potassium 4.6 mmol/L (3.4-5.1); Sodium 135 mmol/L (137-145); Total Protein 7.3 g/dL (6.3-8.2); Triglycerides 98 mg/dL (35-150)
[2023-03-14 10:41] LABS: HEMOLYSIS 16 (0-50)
[2023-03-14 10:51] LABS: HDL Cholesterol 116 mg/dL (40-60); LDL Cholesterol Calculated 33 mg/dL (<100)
[2023-03-14 10:55] LABS: TSH w/ Reflex to FT4 3.41 uIU/mL (0.47-4.68)
[2023-03-14 11:20] LABS: Folate 8.8 ng/mL (2.76-20.0); Vitamin B12 551 pg/mL (239-931)
[2023-03-14 13:21] LABS: Appearance Urine UA CLEAR; Bilirubin Urine UA NEGATIVE (NEGATIVE); Color Urine UA YELLOW; Glucose Urine UA NEGATIVE (Negative); Ketones Urine UA TRACE (NEGATIVE); Leukocyte Esterase Urine UA NEGATIVE (NEGATIVE); Nitrite Urine UA NEGATIVE (Negative); Occult Blood Urine UA NEGATIVE (Negative); Protein Urine UA 1+ (Negative); Specific Gravity Urine UA 1.015 (1.000-1.035); pH Urine UA 6.5 (4.5-8.0)
[2023-03-14 13:50] LABS: Bacteria Urine None Seen; Culture Indicated Urine Cult Not Indicated; Hyaline Casts Urine 1-5/LPF; Mucus Urine 1+ (Negative); RBC Urine 1-5/HPF (0-5/HPF); Squamous Epithelial Cell Urine 1-5 /HPF (0-5/HPF); WBC Urine 1-5/HPF (0-5/HPF)
[2023-03-19 14:43] LABS: Vitamin B1 93.3 nmol/L (66.5-200.0)
== END ==
PROVIDERS: PCP Nurse Practitioner Family; Referring Provider Nurse Practitioner Family; Visit Provider Nurse Practitioner Family
DX: N39.0 Urinary tract infection, site not specified (principal); F10.10 Alcohol abuse, uncomplicated; E03.9 Hypothyroidism, unspecified; R82.998 Other abnormal findings in urine; Z13.220 Encounter for screening for lipoid disorders; I10 Essential (primary) hypertension
CPT/HCPCS: 36415; 80053; 80061; 81001; 82607; 82746; 82977; 84425; 84443; 85025

== ENCOUNTER 2023-11-03 23:06 | Emergency (ER) | payer MEDICARE, MEDICAID, SELFPAY ==
[2020-02-23 11:45] VITALS: PULSE 67; RESP 20; O2SAT 100
[2023-11-03 23:12] VITALS: BP 96/71; PULSE 58; RESP 12; TEMP 36; O2SAT 98; BMI 21.5
--- NOTE | 2023-11-03 23:32 | ED.FALL ---
HPI - Fall <Hemalatha Peace MD - Last Filed: 11/05/23 04:17> General Chief Complaint: Fall Stated Complaint: RUTHIE Time Seen by Provider: 11/03/23 23:12 Source: EMS Mode of arrival: EMS History of Present Illness HPI Narrative: 68-year-old male with history of alcohol use disorder presents by EMS from his apartment under police RUTHIE for generalized weakness, intoxication, suspected inability to care for himself. EMS was called to the patient's home after patient called door-requesting help. When they arrived the patient was lying on the ground unable to get up. They report that the living facility was extremely foul and near uninhabitable due to the amount of waste, filth, and cigarette smoke present. Police also noted numerous cigarette worthy to the carpet and what appeared to be human feces on furniture. Patient arrives screaming, yelling that he wanted to go home. Patient could technically answer orientation questions appropriately, knowing the year and where he was, but he did not know why he was in the emergency department and did not remember falling. Related Data Home Medications Medication Instructions Recorded Confirmed trazodone 50 mg tablet 50 mg PO BEDTIME 09/20/22 11/04/23 losartan 50 mg tablet 50 mg PO DAILY 11/04/23 11/04/23 Previous Rx's Medication Instructions Recorded levothyroxine 75 mcg tablet 75 mcg PO QDAY #90 tabs 04/15/22 (Synthroid) carvedilol 3.125 mg tablet 3.125 mg PO BID #60 tabs 03/02/23 losartan 100 mg tablet 100 mg PO DAILY #30 tabs 03/02/23 Allergies Allergy/AdvReac Type Severity Reaction Status Date / Time ciprofloxacin [From CIPRO] Allergy Severe SWELLING Verified 11/03/23 23:20 IN HANDS, ARMS, LEGS AND FEET pantoprazole AdvReac Intermediate n/v, Verified 11/03/23 23:20 omeprazole okay Review of Systems <Hemalatha Peace MD - Last Filed: 11/05/23 04:17> Review of Systems Narrative: Limited due to patient condition Patient History <Hemalatha Peace MD - Last Filed: 11/05/23 04:17> Medical History Acute hyponatremia Intertrochanteric fracture of left hip Alcoholism Anoxic brain injury Essential hypertension Cardiomyopathy Paroxysmal atrial fibrillation Alcohol dependence Elevated liver function tests Pulmonary nodule (~07/2019) COPD (chronic obstructive pulmonary disease) Impaired vision GERD (gastroesophageal reflux disease) Hypothyroidism Eczema (2016) Chronic cough (1999) Dislocated elbow (2000) Dislocated shoulder (2001) Fractures (~1963) Cataracts, bilateral (2007) Surgical History History of repair of hiatal hernia Hx of hernia repair (1995) History of nasal surgery (1963) History of cataract removal with insertion of prosthetic lens Family History Father History of arteriosclerotic cardiovascular disease History of emphysema Mother Cancer Grandfather No problems noted. Grandmother Stroke Grandfather No problems noted. Grandmother No problems noted. Social History household members: family and none Smoking Status: Current every day smoker Tobacco: How many years used: 22 quit status: not considering quitting second hand exposure: No alcohol intake: current substance use type: does not use Smoking Status: Current every day smoker tobacco type: cigarettes alcohol intake frequency: 3 or more drinks per day Alcohol type: beer and hard liquor Substance Use Type: does not use Exam <Hemalatha Peace MD - Last Filed: 11/05/23 04:17> Initial Vital Signs Initial Vital Signs: Vital Signs Temperature 96.8 F L 11/03/23 23:12 Pulse Rate 58 L 11/03/23 23:12 Respiratory Rate 12 11/03/23 23:12 Blood Pressure 96/71 11/03/23 23:12 Pulse Oximetry 98 11/03/23 23:12 Oxygen Delivery Method Room Air 11/03/23 23:12 Const: Awake, intoxicated, disheveled, appears older than stated age, hygiene very poor Cardiac: regular rate, regular rhythm RESP: unlabored, clear bilaterally, no wheezing GI: Atraumatic, soft, nontender MSK: Atraumatic, full range of motion, pulses equal Skin: Warm, Dry, intact, feet filthy, covered in dirt Neuro: AO x3, CN II-XII grossly intact, moves all extremities, poor memory <William Rubin MD - Last Filed: 11/04/23 17:36> Initial Vital Signs Initial Vital Signs: Vital Signs Temperature 96.8 F L 11/03/23 23:12 Pulse Rate 58 L 11/03/23 23:12 Respiratory Rate 12 11/03/23 23:12 Blood Pressure 96/71 11/03/23 23:12 Pulse Oximetry 98 11/03/23 23:12 Oxygen Delivery Method Room Air 11/03/23 23:12 Course <Hemalatha Peace MD - Last Filed: 11/05/23 04:17> Orders Ordered: Discontinued Medications Albuterol (Albuterol Hfa Mdi 60 Puff/8 Gm Inhaler) 2 puff INH NOW ONE Stop: 11/04/23 08:25 Last Admin: 11/04/23 12:22 Dose: Not Given Documented By: RB Albuterol (Albuterol 2.5 Mg/3 Ml Neb (Adult)) 2.5 mg INH NOW ONE Stop: 11/04/23 08:31 Last Admin: 11/04/23 08:54 Dose: 2.5 mg Documented By: ROSANNA Carvedilol (Carvedilol 3.125 Mg Tablet) 3.125 mg PO NOW ONE Stop: 11/04/23 08:07 Last Admin: 11/04/23 09:22 Dose: 3.125 mg Documented By: RAPHAEL Folic Acid (Folic Acid 1 Mg Tablet) 1 mg PO NOW ONE Stop: 11/04/23 01:48 Last Admin: 11/04/23 02:00 Dose: 1 mg Documented By: Sodium Chloride (Normal Saline 0.9%) 1,000 mls @ 1,000 mls/hr IV BOLUS ONE Stop: 11/04/23 00:30 Last Infusion: 11/04/23 01:54 Dose: Infused Documented By: Admin: 11/04/23 00:49 Dose: 1,000 mls/hr Documented By: DELFIN Thiamine HCl 200 mg/ Sodium (Chloride) 102 mls @ 408 mls/hr IV NOW ONE Stop: 11/04/23 01:48 Last Infusion: 11/04/23 02:20 Dose: Infused Documented By: Admin: 11/04/23 02:00 Dose: 408 mls/hr Documented By: AB Levothyroxine Sodium (Levothyroxine 75 Mcg Tablet) 75 mcg PO NOW ONE Stop: 11/04/23 08:08 Last Admin: 11/04/23 09:23 Dose: 75 mcg Documented By: RAPHAEL Losartan Potassium (Losartan 50 Mg Tablet) 100 mg PO NOW ONE Stop: 11/04/23 08:07 Last Admin: 11/04/23 09:23 Dose: 100 mg Documented By: RAPHAEL Vital Signs Vital signs: Vital Signs - 8 hr 11/04/23 14:33 11/04/23 14:33 Pulse Rate 74 Blood Pressure 168/76 H 168/78 H Pulse Oximetry 96 <William Rubin MD - Last Filed: 11/04/23 17:36> Orders Ordered: Discontinued Medications Albuterol (Albuterol Hfa Mdi 60 Puff/8 Gm Inhaler) 2 puff INH NOW ONE Stop: 11/04/23 08:25 Last Admin: 11/04/23 12:22 Dose: Not Given Documented By: JEANNINE Albuterol (Albuterol 2.5 Mg/3 Ml Neb (Adult)) 2.5 mg INH NOW ONE Stop: 11/04/23 08:31 Last Admin: 11/04/23 08:54 Dose: 2.5 mg Documented By: ROSANNA Carvedilol (Carvedilol 3.125 Mg Tablet) 3.125 mg PO NOW ONE Stop: 11/04/23 08:07 Last Admin: 11/04/23 09:22 Dose: 3.125 mg Documented By: RAPHAEL Folic Acid (Folic Acid 1 Mg Tablet) 1 mg PO NOW ONE Stop: 11/04/23 01:48 Last Admin: 11/04/23 02:00 Dose: 1 mg Documented By: Sodium Chloride (Normal Saline 0.9%) 1,000 mls @ 1,000 mls/hr IV BOLUS ONE Stop: 11/04/23 00:30 Last Infusion: 11/04/23 01:54 Dose: Infused Documented By: Admin: 11/04/23 00:49 Dose: 1,000 mls/hr Documented By: DELFIN Thiamine HCl 200 mg/ Sodium (Chloride) 102 mls @ 408 mls/hr IV NOW ONE Stop: 11/04/23 01:48 Last Infusion: 11/04/23 02:20 Dose: Infused Documented By: Admin: 11/04/23 02:00 Dose: 408 mls/hr Documented By: Levothyroxine Sodium (Levothyroxine 75 Mcg Tablet) 75 mcg PO NOW ONE Stop: 11/04/23 08:08 Last Admin: 11/04/23 09:23 Dose: 75 mcg Documented By: RAPHAEL Losartan Potassium (Losartan 50 Mg Tablet) 100 mg PO NOW ONE Stop: 11/04/23 08:07 Last Admin: 11/04/23 09:23 Dose: 100 mg Documented By: RAPHAEL Reevaluation(s) Reevaluation #1: Care was assumed at 7:00 a.m. shift change. Patient re-evaluated at 8:00 a.m., he is requesting to leave. Patient states that his brother has set up home health caregiver who is supposed to meet him at 9:00 a.m.. He is anxious to leave. He is oriented to place and year, thinks the month is September however easily redirected to October. Says he has not sure why he was brought in last night. Has no other complaints he is noted to be coughing nursing staff report that his pharmacy dispensed history indicates inhalers. Does not have a significant tremor at present does not appear to be withdrawing from alcohol. The patient is adamant that he wants to leave. We are going to try to contact his brother regarding caregivers, I understand that attempts were made to contact the brother last night as well. Social work consult is pending, I will encourage him to stay for this however at this point I do not think he can actually keep him against his will. Consultations Consultation #1: Social work consulted, interactive with her brother who will be available this afternoon to assist the patient. Patient has a cleaning service scheduled to his apartment and home health referral was made. We will also make an APS referral. Vital Signs Vital signs: Vital Signs - 8 hr 11/04/23 14:33 11/04/23 14:33 Pulse Rate 74 Blood Pressure 168/76 H 168/78 H Pulse Oximetry 96 MDM - Fall <Hemalatha Peace MD - Last Filed: 11/05/23 04:17> Lab Data 11/03/23 00:35 11/03/23 00:35 Labs: Lab Results 11/03/23 11/04/23 11/04/23 Range/Units 00:35 01:02 01:45 WBC 6.1 (4.5-11.0) X10^3/uL RBC 4.84 (4.5-5.9) X10^6/uL Hgb 15.6 (13.5-17.5) g/dL Hct 44.6 (41-53) % MCV 92.1 (80-100) fL MCH 32.3 (26-34) PG MCHC 35.1 (30-36) % RDW 13.8 (11.6-14.8) % Plt Count 194 (150-400) X10^3/uL Neut % (Auto) 63.6 (50-75) % Lymph % (Auto) 21.6 L (25-40) % [place] % (Auto) 11.6 (3-14) % Eos % (Auto) 2.2 (2-4) % Baso % (Auto) 1.0 (0-2) % Neut # (Auto) 3900 (6511-4197) /uL Lymph # (Auto) 1300 (0864-6369) /uL [place] # (Auto) 700 (0-900) /uL Eos # (Auto) 100 (0-450) /uL Baso # (Auto) 100 (0-100) /uL PT 10.9 (9.4-12.5) SECONDS INR 1.0 (0.9-1.3) Sodium 125 L (137-145) mmol/L Potassium 4.4 (3.4-5.1) mmol/L Chloride 93 L (98-107) mmol/L Carbon Dioxide 28 (22-32) mmol/L BUN 6 L (9-20) mg/dL Creatinine 0.45 L (0.66-1.25) mg/dL Estimated GFR > 60 (>60) mL/min BUN/Creatinine Ratio 13.3 (6-22) Glucose 83 (80-110) mg/dL Calcium 8.2 L (8.4-10.2) mg/dL Magnesium 1.7 (1.6-2.3) mg/dL Total Bilirubin 0.6 (0.2-1.3) mg/dL AST 34 (17-59) IU/L ALT 11 (<50) IU/L Alkaline Phosphatase 127 H (38-126) U/L Ammonia 9 (9-30) umol/L Total Creatine Kinase 138 (55-170) U/L Troponin I < 0.012 (0.01-0.034) ng/mL Total Protein 7.1 (6.3-8.2) g/dL Albumin 3.7 (3.5-5.0) g/dL Globulin 3.4 (1.7-4.1) g/dL Albumin/Globulin Ratio 1.1 (1.0-2.8) TSH 1.38 (0.47-4.68) uIU/mL Urine Color Yellow Urine Appearance Clear Urine pH 6.5 (4.5-8.0) Ur Specific [place] <=1.005 (1.000-1.035) Urine Protein Negative (Negative) Urine Glucose (UA) Negative (Negative) g/dL Urine Ketones Negative (NEGATIVE) Urine Occult Blood Negative (Negative) Urine Nitrate Negative (Negative) Urine Bilirubin Negative (NEGATIVE) Urine Urobilinogen 2.0 H (0.2) E.U./dL Ur Leukocyte Esterase Negative (NEGATIVE) Urine RBC None seen (0-5/HPF) Urine WBC None seen (0-5/HPF) Ur Squamous Epith Cells None seen (0-5/HPF) Urine Bacteria None seen (None) Ur Culture Indicated? Cult not indicated Vol Urine Centrifuged 10ml (spun) U Opiates 300ng/mL cut Negative (Negative) Ur Oxycodone Screen Negative (Negative) Urine Methadone Screen Negative (Negative) Ur Barbiturates Screen Negative (Negative) U Tricyclic Antidepress Negative (Negative) Ur Phencyclidine Scrn Negative (Negative) Ur Amphetamines Screen Negative (Negative) U Methamphetamines Scrn Negative (Negative) Ur MDMA Scrn (Ecstasy) Negative (Negative) U Benzodiazepines Scrn Negative (Negative) Urine Cocaine Screen Negative (Negative) U Marijuana (THC) Screen Negative (Negative) Urine Specific [place] Ethyl Alcohol 186 H ( - 10) mg/dL Ur Creatinine Chlamy pneumoniae PCR Not detected (Not Detect) Adenovirus (PCR) Not detected (Not Detect) B.parapertussis DNA PCR Not detected (Not Detecte) Coronavirus OC43 (PCR) Not detected (Not Detect) Coronavirus HKU1 (PCR) Not detected (Not Detect) Coronavirus 229E (PCR) Not detected (Not Detect) SARS-CoV-2 (PCR) Not detected (Not Detecte) Coronavirus NL63 (PCR) Not detected (Not Detect) Human Metapneumovir PCR Not detected (Not Detect) Influenza Type A (PCR) Not detected (Not Detect) Influenza Type B (PCR) Not detected (Not Detect) M. pneumoniae (PCR) Not detected (Not Detect) Parainfluenza 1 (PCR) Not detected (Not Detect) Parainfluenza 2 (PCR) Not detected (Not Detect) Parainfluenza 3 (PCR) Not detected (Not Detect) Parainfluenza 4 (PCR) Not detected (Not Detect) RSV (PCR) Not detected (Not Detect) Entero/Rhino (PCR) Not detected (Not Detect) 11/04/23 Range/Units 01:45 WBC (4.5-11.0) X10^3/uL RBC (4.5-5.9) X10^6/uL Hgb (13.5-17.5) g/dL Hct (41-53) % MCV (80-100) fL MCH (26-34) PG MCHC (30-36) % RDW (11.6-14.8) % Plt Count (150-400) X10^3/uL Neut % (Auto) (50-75) % Lymph % (Auto) (25-40) % [place] % (Auto) (3-14) % Eos % (Auto) (2-4) % Baso % (Auto) (0-2) % Neut # (Auto) (3085-4779) /uL Lymph # (Auto) (6804-2031) /uL [place] # (Auto) (0-900) /uL Eos # (Auto) (0-450) /uL Baso # (Auto) (0-100) /uL PT (9.4-12.5) SECONDS INR (0.9-1.3) Sodium (137-145) mmol/L Potassium (3.4-5.1) mmol/L Chloride (98-107) mmol/L Carbon Dioxide (22-32) mmol/L BUN (9-20) mg/dL Creatinine (0.66-1.25) mg/dL Estimated GFR (>60) mL/min BUN/Creatinine Ratio (6-22) Glucose (80-110) mg/dL Calcium (8.4-10.2) mg/dL Magnesium (1.6-2.3) mg/dL Total Bilirubin (0.2-1.3) mg/dL AST (17-59) IU/L ALT (<50) IU/L Alkaline Phosphatase (38-126) U/L Ammonia (9-30) umol/L Total Creatine Kinase (55-170) U/L Troponin I (0.01-0.034) ng/mL Total Protein (6.3-8.2) g/dL Albumin (3.5-5.0) g/dL Globulin (1.7-4.1) g/dL Albumin/Globulin Ratio (1.0-2.8) TSH (0.47-4.68) uIU/mL Urine Color Urine Appearance Urine pH TNP (4.5-8.0) Ur Specific [place] (1.000-1.035) Urine Protein (Negative) Urine Glucose (UA) (Negative) g/dL Urine Ketones (NEGATIVE) Urine Occult Blood (Negative) Urine Nitrate (Negative) Urine Bilirubin (NEGATIVE) Urine Urobilinogen (0.2) E.U./dL Ur Leukocyte Esterase (NEGATIVE) Urine RBC (0-5/HPF) Urine WBC (0-5/HPF) Ur Squamous Epith Cells (0-5/HPF) Urine Bacteria (None) Ur Culture Indicated? Vol Urine Centrifuged U Opiates 300ng/mL cut (Negative) Ur Oxycodone Screen (Negative) Urine Methadone Screen (Negative) Ur Barbiturates Screen (Negative) U Tricyclic Antidepress (Negative) Ur Phencyclidine Scrn (Negative) Ur Amphetamines Screen (Negative) U Methamphetamines Scrn (Negative) Ur MDMA Scrn (Ecstasy) (Negative) U Benzodiazepines Scrn (Negative) Urine Cocaine Screen (Negative) U Marijuana (THC) Screen (Negative) Urine Specific [place] TNP Ethyl Alcohol ( - 10) mg/dL Ur Creatinine TNP Chlamy pneumoniae PCR (Not Detect) Adenovirus (PCR) (Not Detect) B.parapertussis DNA PCR (Not Detecte) Coronavirus OC43 (PCR) (Not Detect) Coronavirus HKU1 (PCR) (Not Detect) Coronavirus 229E (PCR) (Not Detect) SARS-CoV-2 (PCR) (Not Detecte) Coronavirus NL63 (PCR) (Not Detect) Human Metapneumovir PCR (Not Detect) Influenza Type A (PCR) (Not Detect) Influenza Type B (PCR) (Not Detect) M. pneumoniae (PCR) (Not Detect) Parainfluenza 1 (PCR) (Not Detect) Parainfluenza 2 (PCR) (Not Detect) Parainfluenza 3 (PCR) (Not Detect) Parainfluenza 4 (PCR) (Not Detect) RSV (PCR) (Not Detect) Entero/Rhino (PCR) (Not Detect) Imaging Data CT scan - head: My Impression: PROCEDURE: CT HEAD/BRAIN WO CON INDICATIONS: AMS/MULTIPLE FALLS TECHNIQUE: Noncontrast 4.5 mm thick angled axial sections acquired from the foramen magnum to the vertex, with coronal and sagittal reformats. For radiation dose reduction, the following was used: automated exposure control, adjustment of mA and/or kV according to patient size. COMPARISON: [facility], CT, CT HEAD/BRAIN WO CON, 02/24/2023, 10:39. FINDINGS: Image quality: Diagnostic. CSF spaces: Basal cisterns are patent. No extra-axial fluid collections. The ventricles are symmetric in size and shape. Brain: No intracranial bleeds or masses. There is cerebral volume loss for age, with resultant ventricular and sulcal prominence. There are periventricular and deep white matter chronic small vessel ischemic changes. There is intracranial internal carotid artery atherosclerosis. Skull and face: Calvarium and visualized facial bones appear intact, without suspicious lesions. Sinuses: Mild mucosal thickening in bilateral maxillary sinuses are seen. Bilateral mastoid air cells are well aerated. IMPRESSION: 1. No acute intracranial pathology. 2. Mild bilateral maxillary sinusitis. Dictated by: Jacek Barnett M.D. on 11/04/2023 at 0:10 Approved by: Jacek Barnett M.D. on 11/04/2023 at 0:11 Chest x-ray: Radiologist's Impression: PROCEDURE: XR CHEST 1V INDICATIONS: AMS/MULTIPLE FALLS TECHNIQUE: One view of the chest was acquired. COMPARISON: [facility], CR, XR CHEST 1V, 02/24/2023, 10:30. FINDINGS: Surgical changes and devices: None. Lungs and pleura: 1.5 cm hyperdensity projecting in left midlung field is seen. Right lung is clear. No pleural effusions or pneumothorax. Mediastinum: Mediastinal contours appear normal. Heart size is normal. Bones and chest wall: No suspicious bony lesions. Multiple left posterior and lateral mid to lower rib fractures are seen. These are new finding since 02/24/2023 study. Overlying soft tissues appear unremarkable. IMPRESSION: Multiple left posterior lateral mid to lower rib fractures. No pneumothorax. No significant pleural effusion. 1.5 cm opacity projecting in left midlung field and may represent summation artifact from left posterior 5th rib fracture with callus formation. Pulmonary nodule cannot be entirely excluded. Follow-up outpatient CT chest evaluation can be done if clinically indicated. Dictated by: Jacek Barnett M.D. on 11/04/2023 at 0:07 Approved by: Jacek Barnett M.D. on 11/04/2023 at 0:10 Treatment and disposition Social Determinants of Health that impact treatment or disposition: alcohol abuse MDM Narrative Medical decision making narrative: Disheveled and intoxicated patient presenting for falls, likely inability to care for self. Technically able to answer orientation questions, however he can not remember falling and isn't certain why he was in the emergency department. Thiamine and folic acid ordered due to longstanding history of alcohol use. Chest x-ray, head CT ordered due to falls and weakness. Laboratory work is significant for sodium 125 (longstanding, chronic, Na typically between 120-130). Troponin undetectable, alcohol level 186. CT noncontrast of the brain negative for acute findings. Chest x-ray shows rib fractures on the left-hand side without pneumothorax. Patient states that he was aware of these rib fractures but can not tell me when he obtain them. He denies any chest pain or shortness of breath. Patient currently medically cleared, but due to intoxication, poor conditioning, and high suspicion for inability to care for himself a social work consult has been placed. AM care transferred to Dr. Rubin at 0700 remained stable throughout his emergency department stay. He persistently insisted he did not want to stay and was grossly oriented, social work consult was completed. He will be discharged home to continue his previous medications recommended he discontinue alcohol use <William Rubin MD - Last Filed: 11/04/23 17:36> Lab Data Lab results narrative: Patient has alcohol intoxication, hyponatremia is chronic CBC with diff is unremarkable Labs: Lab Results 11/03/23 11/04/23 11/04/23 Range/Units 00:35 01:02 01:45 WBC 6.1 (4.5-11.0) X10^3/uL RBC 4.84 (4.5-5.9) X10^6/uL Hgb 15.6 (13.5-17.5) g/dL Hct 44.6 (41-53) % MCV 92.1 (80-100) fL MCH 32.3 (26-34) PG MCHC 35.1 (30-36) % RDW 13.8 (11.6-14.8) % Plt Count 194 (150-400) X10^3/uL Neut % (Auto) 63.6 (50-75) % Lymph % (Auto) 21.6 L (25-40) % [place] % (Auto) 11.6 (3-14) % Eos % (Auto) 2.2 (2-4) % Baso % (Auto) 1.0 (0-2) % Neut # (Auto) 3900 (5641-1568) /uL Lymph # (Auto) 1300 (9594-8054) /uL [place] # (Auto) 700 (0-900) /uL Eos # (Auto) 100 (0-450) /uL Baso # (Auto) 100 (0-100) /uL PT 10.9 (9.4-12.5) SECONDS INR 1.0 (0.9-1.3) Sodium 125 L (137-145) mmol/L Potassium 4.4 (3.4-5.1) mmol/L Chloride 93 L (98-107) mmol/L Carbon Dioxide 28 (22-32) mmol/L BUN 6 L (9-20) mg/dL Creatinine 0.45 L (0.66-1.25) mg/dL Estimated GFR > 60 (>60) mL/min BUN/Creatinine Ratio 13.3 (6-22) Glucose 83 (80-110) mg/dL Calcium 8.2 L (8.4-10.2) mg/dL Magnesium 1.7 (1.6-2.3) mg/dL Total Bilirubin 0.6 (0.2-1.3) mg/dL AST 34 (17-59) IU/L ALT 11 (<50) IU/L Alkaline Phosphatase 127 H (38-126) U/L Ammonia 9 (9-30) umol/L Total Creatine Kinase 138 (55-170) U/L Troponin I < 0.012 (0.01-0.034) ng/mL Total Protein 7.1 (6.3-8.2) g/dL Albumin 3.7 (3.5-5.0) g/dL Globulin 3.4 (1.7-4.1) g/dL Albumin/Globulin Ratio 1.1 (1.0-2.8) TSH 1.38 (0.47-4.68) uIU/mL Urine Color Yellow Urine Appearance Clear Urine pH 6.5 (4.5-8.0) Ur Specific [place] <=1.005 (1.000-1.035) Urine Protein Negative (Negative) Urine Glucose (UA) Negative (Negative) g/dL Urine Ketones Negative (NEGATIVE) Urine Occult Blood Negative (Negative) Urine Nitrate Negative (Negative) Urine Bilirubin Negative (NEGATIVE) Urine Urobilinogen 2.0 H (0.2) E.U./dL Ur Leukocyte Esterase Negative (NEGATIVE) Urine RBC None seen (0-5/HPF) Urine WBC None seen (0-5/HPF) Ur Squamous Epith Cells None seen (0-5/HPF) Urine Bacteria None seen (None) Ur Culture Indicated? Cult not indicated Vol Urine Centrifuged 10ml (spun) U Opiates 300ng/mL cut Negative (Negative) Ur Oxycodone Screen Negative (Negative) Urine Methadone Screen Negative (Negative) Ur Barbiturates Screen Negative (Negative) U Tricyclic Antidepress Negative (Negative) Ur Phencyclidine Scrn Negative (Negative) Ur Amphetamines Screen Negative (Negative) U Methamphetamines Scrn Negative (Negative) Ur MDMA Scrn (Ecstasy) Negative (Negative) U Benzodiazepines Scrn Negative (Negative) Urine Cocaine Screen Negative (Negative) U Marijuana (THC) Screen Negative (Negative) Urine Specific [place] Ethyl Alcohol 186 H ( - 10) mg/dL Ur Creatinine Chlamy pneumoniae PCR Not detected (Not Detect) Adenovirus (PCR) Not detected (Not Detect) B.parapertussis DNA PCR Not detected (Not Detecte) Coronavirus OC43 (PCR) Not detected (Not Detect) Coronavirus HKU1 (PCR) Not detected (Not Detect) Coronavirus 229E (PCR) Not detected (Not Detect) SARS-CoV-2 (PCR) Not detected (Not Detecte) Coronavirus NL63 (PCR) Not detected (Not Detect) Human Metapneumovir PCR Not detected (Not Detect) Influenza Type A (PCR) Not detected (Not Detect) Influenza Type B (PCR) Not detected (Not Detect) M. pneumoniae (PCR) Not detected (Not Detect) Parainfluenza 1 (PCR) Not detected (Not Detect) Parainfluenza 2 (PCR) Not detected (Not Detect) Parainfluenza 3 (PCR) Not detected (Not Detect) Parainfluenza 4 (PCR) Not detected (Not Detect) RSV (PCR) Not detected (Not Detect) Entero/Rhino (PCR) Not detected (Not Detect) 11/04/23 Range/Units 01:45 WBC (4.5-11.0) X10^3/uL RBC (4.5-5.9) X10^6/uL Hgb (13.5-17.5) g/dL Hct (41-53) % MCV (80-100) fL MCH (26-34) PG MCHC (30-36) % RDW (11.6-14.8) % Plt Count (150-400) X10^3/uL Neut % (Auto) (50-75) % Lymph % (Auto) (25-40) % [place] % (Auto) (3-14) % Eos % (Auto) (2-4) % Baso % (Auto) (0-2) % Neut # (Auto) (9096-4310) /uL Lymph # (Auto) (2808-0753) /uL [place] # (Auto) (0-900) /uL Eos # (Auto) (0-450) /uL Baso # (Auto) (0-100) /uL PT (9.4-12.5) SECONDS INR (0.9-1.3) Sodium (137-145) mmol/L Potassium (3.4-5.1) mmol/L Chloride (98-107) mmol/L Carbon Dioxide (22-32) mmol/L BUN (9-20) mg/dL Creatinine (0.66-1.25) mg/dL Estimated GFR (>60) mL/min BUN/Creatinine Ratio (6-22) Glucose (80-110) mg/dL Calcium (8.4-10.2) mg/dL Magnesium (1.6-2.3) mg/dL Total Bilirubin (0.2-1.3) mg/dL AST (17-59) IU/L ALT (<50) IU/L Alkaline Phosphatase (38-126) U/L Ammonia (9-30) umol/L Total Creatine Kinase (55-170) U/L Troponin I (0.01-0.034) ng/mL Total Protein (6.3-8.2) g/dL Albumin (3.5-5.0) g/dL Globulin (1.7-4.1) g/dL Albumin/Globulin Ratio (1.0-2.8) TSH (0.47-4.68) uIU/mL Urine Color Urine Appearance Urine pH TNP (4.5-8.0) Ur Specific [place] (1.000-1.035) Urine Protein (Negative) Urine Glucose (UA) (Negative) g/dL Urine Ketones (NEGATIVE) Urine Occult Blood (Negative) Urine Nitrate (Negative) Urine Bilirubin (NEGATIVE) Urine Urobilinogen (0.2) E.U./dL Ur Leukocyte Esterase (NEGATIVE) Urine RBC (0-5/HPF) Urine WBC (0-5/HPF) Ur Squamous Epith Cells (0-5/HPF) Urine Bacteria (None) Ur Culture Indicated? Vol Urine Centrifuged U Opiates 300ng/mL cut (Negative) Ur Oxycodone Screen (Negative) Urine Methadone Screen (Negative) Ur Barbiturates Screen (Negative) U Tricyclic Antidepress (Negative) Ur Phencyclidine Scrn (Negative) Ur Amphetamines Screen (Negative) U Methamphetamines Scrn (Negative) Ur MDMA Scrn (Ecstasy) (Negative) U Benzodiazepines Scrn (Negative) Urine Cocaine Screen (Negative) U Marijuana (THC) Screen (Negative) Urine Specific Florien TNP Ethyl Alcohol ( - 10) mg/dL Ur Creatinine TNP Chlamy pneumoniae PCR (Not Detect) Adenovirus (PCR) (Not Detect) B.parapertussis DNA PCR (Not Detecte) Coronavirus OC43 (PCR) (Not Detect) Coronavirus HKU1 (PCR) (Not Detect) Coronavirus 229E (PCR) (Not Detect) SARS-CoV-2 (PCR) (Not Detecte) Coronavirus NL63 (PCR) (Not Detect) Human Metapneumovir PCR (Not Detect) Influenza Type A (PCR) (Not Detect) Influenza Type B (PCR) (Not Detect) M. pneumoniae (PCR) (Not Detect) Parainfluenza 1 (PCR) (Not Detect) Parainfluenza 2 (PCR) (Not Detect) Parainfluenza 3 (PCR) (Not Detect) Parainfluenza 4 (PCR) (Not Detect) RSV (PCR) (Not Detect) Entero/Rhino (PCR) (Not Detect) MDM Narrative Medical decision making narrative: Disheveled and intoxicated patient presenting for falls, likely inability to care for self. Technically able to answer orientation questions, however he can not remember falling and isn't certain why he was in the emergency department. Thiamine and folic acid ordered due to longstanding history of alcohol use. Chest x-ray, head CT ordered due to falls and weakness. Laboratory work is significant for sodium 125 (longstanding, chronic, Na typically between 120-130). Troponin undetectable, alcohol level 186. CT noncontrast of the brain negative for acute findings. Chest x-ray shows rib fractures on the left-hand side without pneumothorax. Patient states that he was aware of these rib fractures but can not tell me when he obtain them. He denies any chest pain or shortness of breath. Patient currently medically cleared, but due to intoxication, poor conditioning, and high suspicion for inability to care for himself a social work consult has been placed. remained stable throughout his emergency department stay. He persistently insisted he did not want to stay and was grossly oriented, social work consult was completed. He will be discharged home to continue his previous medications recommended he discontinue alcohol use Discharge Plan Departure Patient Disposition: Home Clinical Impression: Self-care deficit, Alcohol abuse Fall Qualifiers: Encounter type: initial encounter Qualified Code(s): W19.XXXA - Unspecified fall, initial encounter Activity Restrictions/Additional Instructions: continue previous home care, follow up with home health as ordered. Follow up soon with your primary care provider. I recommend that you stop using alcohol, consider alcohol treatment or withdrawal supervised by primary care Prescriptions: No Action levothyroxine [Synthroid] 75 mcg tablet 75 mcg PO QDAY Qty: 90 3RF trazodone 50 mg tablet 50 mg PO BEDTIME Patient Comments: TAKE ONE TABLET BY MOUTH NIGHTLY AT BEDTIME carvedilol 3.125 mg tablet 3.125 mg PO BID Qty: 60 0RF Rx Instructions: must administer with a meal/food losartan 100 mg tablet 100 mg PO DAILY Qty: 30 0RF losartan 50 mg tablet 50 mg PO DAILY Referrals: Yasmine Gbibs RN [Primary Care Provider] - Stand Alone Forms: Patient Portal/API
[2023-11-04 00:45] LABS: Add Manual Diff / Slide Review NO; Basophils Absolute Auto 100 /uL (0-100); Eosinophils Absolute Auto 100 /uL (0-450); Eosinophils Percent Auto 2.2 % (2-4); Hematocrit 44.6 % (41-53); Hemoglobin 15.6 g/dL (13.5-17.5); Lymphocytes Absolute Auto 1300 /uL (1100-4500); Lymphocytes Percent Auto 21.6 % (25-40); Mean Corpuscular HGB Conc 35.1 % (30-36); Mean Corpuscular Hemoglobin 32.3 PG (26-34); Mean Corpuscular Volume 92.1 fL (80-100); Monocytes Absolute Auto 700 /uL (0-900); Monocytes Percent Auto 11.6 % (3-14); Neutrophils Absolute Auto 3900 /uL (1500-7000); Neutrophils Percent Auto 63.6 % (50-75); Platelet Count 194 X10^3/uL (150-400); Red Blood Cell Count 4.84 X10^6/uL (4.5-5.9); Red Cell Distribution Width 13.8 % (11.6-14.8); White Blood Cell Count 6.1 X10^3/uL (4.5-11.0)
[2023-11-04] MEDS: SODIUM CHLORIDE 0.9% 1,000 ML 1000 ML IV (00:49)
[2023-11-04 01:04] LABS: Prothrombin Time 10.9 SECONDS (9.4-12.5)
[2023-11-04 01:07] LABS: Ammonia (NH3) 9 umol/L (9-30)
[2023-11-04 01:08] LABS: Alanine Aminotransferase 11 IU/L (<50); Albumin 3.7 g/dL (3.5-5.0); Albumin Globulin Ratio 1.1 (1.0-2.8); Alkaline Phosphatase 127 U/L (38-126); Aspartate Aminotransferase 34 IU/L (17-59); BUN Creatinine Ratio 13.3 (6-22); Bilirubin Total 0.6 mg/dL (0.2-1.3); Blood Urea Nitrogen 6 mg/dL (9-20); Calcium 8.2 mg/dL (8.4-10.2); Carbon Dioxide 28 mmol/L (22-32); Chloride 93 mmol/L (98-107); Creatine Kinase 138 U/L (55-170); Estimated Glomerular Filt Rate > 60 mL/min (>60); Ethanol (ETOH) 186 mg/dL; Globulin 3.4 g/dL (1.7-4.1); Glucose 83 mg/dL (80-110); HEMOLYSIS 21 (0-50); Magnesium 1.7 mg/dL (1.6-2.3); Potassium 4.4 mmol/L (3.4-5.1); Sodium 125 mmol/L (137-145); Total Protein 7.1 g/dL (6.3-8.2)
[2023-11-04 01:19] LABS: Troponin I < 0.012 ng/mL (0.01-0.034)
[2023-11-04 01:54] LABS: Adenovirus Not Detected (Not Detect); B. parapertussis Not Detected (Not Detecte); Bordetella pertussis Not Detected (Not Detect); Chlamydophila pneumoniae Not Detected (Not Detect); Coronavirus 229E Not Detected (Not Detect); Coronavirus HKU1 Not Detected (Not Detect); Coronavirus NL 63 Not Detected (Not Detect); Coronavirus OC43 Not Detected (Not Detect); Human Metapneumovirus Not Detected (Not Detect); Human Rhinovirus/Enterovirus Not Detected (Not Detect); Influenza A Not Detected (Not Detect); Influenza B Not Detected (Not Detect); Mycoplasma pneumoniae Not Detected (Not Detect); Parainfluenza Virus 1 Not Detected (Not Detect); Parainfluenza Virus 2 Not Detected (Not Detect); Parainfluenza Virus 3 Not Detected (Not Detect); Parainfluenza Virus 4 Not Detected (Not Detect); Respiratory Syncytial Virus Not Detected (Not Detect); SARS- CoV-2 Not Detected (Not Detecte)
[2023-11-04 01:55] LABS: Appearance Urine UA CLEAR; Bilirubin Urine UA NEGATIVE (NEGATIVE); Color Urine UA YELLOW; Glucose Urine UA NEGATIVE (Negative); Ketones Urine UA NEGATIVE (NEGATIVE); Leukocyte Esterase Urine UA NEGATIVE (NEGATIVE); Nitrite Urine UA NEGATIVE (Negative); Occult Blood Urine UA NEGATIVE (Negative); Protein Urine UA NEGATIVE (Negative); Specific Gravity Urine UA <=1.005 (1.000-1.035); pH Urine UA 6.5 (4.5-8.0)
[2023-11-04 02:00] LABS: Thyroid Stimulating Hormone 1.38 uIU/mL (0.47-4.68)
[2023-11-04] MEDS: FOLIC ACID 1 MG TABLET PO (02:00)
[2023-11-04] MEDS: THIAMINE 200 MG in SODIUM CHLORIDE 0.9% 100 ML 408 MG IV (02:00)
[2023-11-04 02:02] LABS: Bacteria Urine None Seen; Culture Indicated Urine Cult Not Indicated; RBC Urine None Seen (0-5/HPF); Squamous Epithelial Cell Urine None Seen (0-5/HPF); UR Morphine/Opiate cutoff 300 Negative (Negative); Urine Amphetamines Negative (Negative); Urine Barbiturates Negative (Negative); Urine Benzodiazepines Negative (Negative); Urine Cocaine Negative (Negative); Urine MDMA Negative (Negative); Urine Methadone Negative (Negative); Urine Methamphetamines Negative (Negative); Urine Oxycodone Negative (Negative); Urine Phencyclidine Negative (Negative); Urine Tetrahydrocannabinol Negative (Negative); Urine Tricyclic Antidepressant Negative (Negative); Urine Volume 10mL (spun); WBC Urine None Seen (0-5/HPF)
[2023-11-04 05:15] VITALS: BP 163/84; PULSE 96; RESP 20; O2SAT 96
--- NOTE | 2023-11-04 06:04 | PC.NURSE ---
Per pt request attempt to call Brother Nicko Simpson (Bill) at 0530 this morning unsuccessful. Will have day shift nursing try later due to time.
--- NOTE | 2023-11-04 08:05 | PC.NURSE ---
0730 Patient called Nurse! loudly from room. This EDRN came to bedside and he reports concernes that an alarm is going to go off on his med box at home to alert him to take his 8am meds. He states he wants me to turn off the alarms when they go off. He points to the head of the bed. I explained he is at the hospital to which he states I know that. But I need you to op[en and close it to turn off the alarms. I then informed him that I cannot go to his house to turn off the alarms, to which he again states I know that. But I need you to turn off the alarms. I said if an alarm goes off in his hospital room at 8am that I will come and assist him in turning it off. 0800 Patient again calls for a NURSE! and this RN came to the bedside. Patient expresses same concerns as previously regarding alarm going off on medbox. I again told him I cannot go to his house to turn off the alarms and reassured him that it is ok if they are going off at home and he does not need to worry about this. Patient remains in bed, fully visualized from nurse's station.
[2023-11-04 08:10] VITALS: TEMP 36.8
--- NOTE | 2023-11-04 08:31 | PC.NURSE ---
At this time I spoke with the patient's brother Júnior who reports significant concerns regarding his brother's well-being. He reports he is in and out of being confused and that the system is failing us. He reports the [facility] has not been able to get him a caregiver for the last 6 months. Production Generalist: Donna Gordon [phone] [facility] Brother reports a cleaning company is coming to the patient's house to clean it at 9am. He states he will be available to talk with our MANUFACTURING TEAM LEADER when they call him.
--- NOTE | 2023-11-04 08:47 | PC.NURSE ---
helped pt with urinal; provided pt with grippy socks even after pt stated he did not need them; told pt the floor was cold and for his safety he needed to wear them; pt was really unsteady on his feet, kept shaking and if it was not for the table being there for him to hold on to pt would have fallen twice; pt took a while urinating standing up so I tried to tell pt to have a seat. He sat but could not urinate sitting down so stood up again grabbing on to the table to catch himself while I held onto his shirt.
[2023-11-04] MEDS: ALBUTEROL 2.5 MG/3 ML NEB (ADULT) INH (08:54)
[2023-11-04 08:55] VITALS: PULSE 78; RESP 18; O2SAT 96
[2023-11-04] MEDS: carvediloL 3.125 MG TABLET PO (09:22)
[2023-11-04] MEDS: LEVOTHYROXINE 75 MCG TABLET PO (09:23)
[2023-11-04] MEDS: LOSARTAN 50 MG TABLET 100 MG PO (09:23)
[2023-11-04 09:31] VITALS: BP 174/85; PULSE 94; RESP 18; O2SAT 93
--- NOTE | 2023-11-04 09:55 | PC.NURSE ---
Brother Nicko has cleaning crew coming to patients apartment at 11am to provide a clean space for patient to return to.
--- NOTE | 2023-11-04 13:21 | PC.NURSE ---
Patient had a shower assisted by GLASS ARTIST while sitting on a commode for stability. This RN was called in to inspect a wound on patient left 2nd toe. There is a pressure injury that is unstagable due to slough in the wound bed. This RN irrigated with normal saline. Small foam dressing placed. This RN informed provider. This RN informed social work so they can add wound care into their home health referral.
--- NOTE | 2023-11-04 14:15 | CM.SWNOTE ---
Addendum entered by Sophie Martínez 11/04/23 15:46: [facility] picks up patient's life alert to bring to his home. LABOR MEDIATOR informs patient's brother of this. Brother states he plans to see patient Tuesday and take patient to PCP appt. DAVID Mcmanus Addendum entered by Sophie Martínez 11/04/23 15:11: LABOR MEDIATOR receives calls from Shivani at [facility] who reports that patient has been accepted for services. LABOR MEDIATOR calls Brother Bill to inform him of this, at this time RN informs LABOR MEDIATOR that patient's life alert was left behind upon patient's d/c. BARYTES GRINDER to attempt to contact [facility] to see if they can bring life alert to patient, as brother states he cannot pick it up at this time. It is reported that patient has a phone and can contact 911 as needed. DAVID Mcmanus Original Note: ED LABOR MEDIATOR Note Patient is 68 y/o male who presents to ED via EMS and [facility] due to concern for recent GLF and concern for patient's living conditions and patient's care for himself. Patient denies concern for his ADLs, home and does not recall recent GLF. Patient has life alert and is seen by [facility] and community chemical cell changer. LABOR MEDIATOR is informed that patient's brother resides in [place] and he arrived to apartment and hired customer resolution specialist to clean patient's apartment today. Patient's PCP is Yasmine Gibbs NP and patient has [facility], Medicare and Medicaid insurance. Patient has hx of GLFs, ETOH use, Anoxic brain injury, essential hypertension, cardiomyopathy, paroxysmal afib, GED, and acquired hypothyroidism. LABOR MEDIATOR calls patient's [facility] case management director Donna Gordon (ph. # [phone] ext. [phone]) It is reported that patient has been without a caregiver since April 2023. It is reported that there are barriers in getting patient set up with a caregiver due to patient's behaviors and patient's smoking in the home. It is reported that patient has declined interest in [facility] or adult family homes. November reports that [facility] has tried visiting nurses as well. It is reported that patient's brother is not able to visit patient's regularly as he lives about an hour away. Patient has hx of hip fracture that has resulted in SNF rehab stays at [facility] and patient has hx of HH referrals with all HH providers within the last 2 years. LABOR MEDIATOR enters room to meet with patient. Patient presents as A/Ox3, patient denies knowing why he is here. Patient states that they made him come in to ED, patient states he wants to return home. Patient states he is fine, patient resides alone in [place] at [facility]. Patient endorses he uses a FWW to ambulate and denies recent falls. Patient states he can ambulate to bathroom, cook, and eat food. Patient states it has been a while since he took a shower. Patient states he uses dial a ride for transport to go to the store. Patient states he went to the store a few days ago. Patient receives meals on wheels. When asked, patient states he would be interested in living somewhere where they can care for him, but patient's primary goal is to reside at home. Patient states that he drinks several cans of beer a day and one shot of crown royal at night, upon presentation to ED early this AM patient's BAL was 186. Patient denies concern for his drinking. Patient states the community chemical cell changer visited with him a few days ago. Patient denies any other friends, family or supports that visit him other than his brother Júnior in [place], it is reported that Bill visits when he can. Patient has life alert button and uses as needed. LABOR MEDIATOR discusses HH with patient and patient agrees to referral with preference for [facility]. LABOR MEDIATOR calls Community Supervisor Telephone Information Gregory Sorensen regarding patient's presentation to ED and requests Gregory to visit patient on Tuesday when Gregory returns to work. LABOR MEDIATOR calls patient's brother Júnior. It is reported that patient's home is being cleaned by Pau Dolan right now. Bill reports that patient has not had a caregiver for quite some time and he was doing much better when he had a caregiver. Bill reports he is trying to find a caregiver, [facility] and patient's PCP office is looking into caregivers for patient. Bill reports he brought over a wheelchair for patient but patient does not use it. Júnior endorses that patient turns people away when they visit patient. Bill states he is concerned that patient hasn't showered and endorsed concern for pt's feet. Bill states if patient is medically clear for d/c, he can pick patient up when patient's apartment is finished with being cleaned. LABOR MEDIATOR reviews patient's brother's concerns with RN, RN provides a shower for patient and assesses patient's feet. It is identified that there is a wound on patient's left foot. LABOR MEDIATOR observes patient ambulate with FWW in ED. LABOR MEDIATOR calls [facility] and discusses referral, it is reported that they cannot accept patient due to insurance and concern for condition of home. LABOR MEDIATOR calls [facility] regarding referral and faxes referral for PT, OT, RN, HH aide and LABOR MEDIATOR with F2F, order and clinicals. LABOR MEDIATOR explains that patient's home has been cleaned today and it is not a concern at this time. [facility] currently reviewing patient. LABOR MEDIATOR submits APS referral due to concern for self neglect. APS Online Report Confirmation Number: [id number]. LABOR MEDIATOR calls [facility] case management director and leaves VM regarding patient's disposition and stating that patient may be interested in higher level of care. LABOR MEDIATOR to provide patient's brother with senior resource guide, list of caregivers and brochure for [facility]. Plan: patient to d/c to home upon medical clearance with brother, [facility] referral in place, APS referral in place, [facility] and Community Supervisor Telephone Information aware of patient and to f/u with patient. Brother to visit with patient next week. Sophie Martínez, HOME AND SCHOOL VISITOR
[2023-11-04 14:33] VITALS: BP 168/76; BP 168/78; PULSE 74; O2SAT 96
== END 2023-11-04 14:49 | disposition home or self-care (01) ==
PROVIDERS: Emergency Medicine; Emergency Provider Emergency Medicine; PCP Nurse Practitioner Family
DX: F10.129 Alcohol abuse with intoxication, unspecified (principal); Y90.6 Blood alcohol level of 120-199 mg/100 ml; R29.6 Repeated falls; W19.XXXA Unspecified fall, initial encounter
CPT/HCPCS: 36415; 70450; 71045; 80053; 80305; 80320; 81001; 82140; 82550; 83735; 84443; 84484; 85025; 85610; 87633; 93005; 93010; 94640; 96360; 99284; A9270; J7613

== ENCOUNTER 2023-11-18 16:04 | Emergency (ER) | payer MEDICARE, MEDICAID, SELFPAY ==
[2020-02-23 11:45] VITALS: PULSE 67; RESP 20; O2SAT 100
[2023-11-18] VITALS (26 sets, daily range): BP systolic 146–182; BP diastolic 75–100; PULSE 52–83; RESP 16–20; TEMP 36.8; O2SAT 93–98
[2023-11-18 16:39] LABS: Add Manual Diff / Slide Review NO; Basophils Absolute Auto 0 /uL (0-100); Basophils Percent Auto 0.2 % (0-2); Eosinophils Absolute Auto 0 /uL (0-450); Eosinophils Percent Auto 0.1 % (2-4); Hematocrit 43.3 % (41-53); Hemoglobin 14.8 g/dL (13.5-17.5); Lymphocytes Absolute Auto 400 /uL (1100-4500); Lymphocytes Percent Auto 6.9 % (25-40); Mean Corpuscular HGB Conc 34.2 % (30-36); Mean Corpuscular Volume 93.5 fL (80-100); Monocytes Absolute Auto 400 /uL (0-900); Neutrophils Absolute Auto 4600 /uL (1500-7000); Neutrophils Percent Auto 85.8 % (50-75); Platelet Count 280 X10^3/uL (150-400); Red Blood Cell Count 4.63 X10^6/uL (4.5-5.9); Red Cell Distribution Width 13.8 % (11.6-14.8); White Blood Cell Count 5.4 X10^3/uL (4.5-11.0)
--- NOTE | 2023-11-18 16:45 | PC.NURSE ---
patient stated that he thinks he wont be able to go back home to his place of residence due to coming to the ER. He cannot elaborate on that statement and just feels that he wont be able to get let back in to his residence. He is alert and oriented to self, place, and month. He denies hallucinations or tactile disturbances.
[2023-11-18 16:55] LABS: Acetaminophen < 10 ug/mL (10-30); Alanine Aminotransferase 18 IU/L (<50); Albumin 3.5 g/dL (3.5-5.0); Alkaline Phosphatase 91 U/L (38-126); Aspartate Aminotransferase 32 IU/L (17-59); BUN Creatinine Ratio 15.6 (6-22); Bilirubin Total 0.8 mg/dL (0.2-1.3); Blood Urea Nitrogen 7 mg/dL (9-20); Calcium 8.3 mg/dL (8.4-10.2); Carbon Dioxide 24 mmol/L (22-32); Chloride 94 mmol/L (98-107); Estimated Glomerular Filt Rate > 60 mL/min (>60); Ethanol (ETOH) < 10 mg/dL; Globulin 3.4 g/dL (1.7-4.1); Glucose 169 mg/dL (80-110); HEMOLYSIS 42 (0-50); Potassium 3.9 mmol/L (3.4-5.1); Salicylate < 1.0 mg/dL (<20); Sodium 124 mmol/L (137-145); Total Protein 6.9 g/dL (6.3-8.2)
[2023-11-18 17:37] LABS: Free T4, Direct Thyroxine 1.76 ng/dL (0.78-2.19)
--- NOTE | 2023-11-18 18:02 | DI.CT.S_ITS ---
PROCEDURE: CT HEAD/BRAIN WO CON INDICATIONS: falls TECHNIQUE: Noncontrast 4.5 mm thick angled axial sections acquired from the foramen magnum to the vertex, with coronal and sagittal reformats. For radiation dose reduction, the following was used: automated exposure control, adjustment of mA and/or kV according to patient size. COMPARISON: [facility], CT, CT HEAD/BRAIN WO CON, 02/24/2023, 10:39. [facility], CT, CT HEAD/BRAIN WO CON, 11/03/2023, 23:41. FINDINGS: Image quality: Diagnostic. CSF spaces: Basal cisterns are patent. No extra-axial fluid collections. Ventricles are normal in size and shape. Brain: No midline shift. No intracranial masses or hemorrhage. No area of hypodensity in a large vascular distribution to suggest acute infarction. Periventricular hypodensity consistent with chronic microvascular ischemic change. Age-related parenchymal loss. Skull and face: Calvarium and visualized facial bones are intact, without suspicious lesions. Sinuses: Scant mucosal thickening in the maxillary sinuses. Visualized sinuses and mastoids are otherwise clear. IMPRESSION: No interval change appreciated. No acute intracranial hemorrhage. Dictated by: Jean Paul Slade M.D. on 11/18/2023 at 19:08 Approved by: Jean Paul Slade M.D. on 11/18/2023 at 19:14
--- NOTE | 2023-11-18 19:55 | CM.SWNOTE ---
ED MACHINE FOLDER Assessment MACHINE FOLDER - Tours Hostess Assessment MACHINE FOLDER - Tours Hostess Assessment Start: 11/18/23 19:23 Freq: Status: Active Protocol: Document 11/18/23 19:23 BDL (Rec: 11/18/23 19:54 BDL [id number]) MACHINE FOLDER/Tours Hostess Assessment Time Spent with Patient Start date 11/18/23 Visit Start Time 19:00 End date 11/18/23 Visit End Time 19:20 Total time Care Management spent on 20 patient visit-in minutes Mental Health Screening Include Onset, Duration, Intensity Presenting Problem Pt brought to the ED via EMS Pt states he felt like he cannot take care of himself . When pt began feeling weak he called EMS. Precipitating Event(s) Per community cabinet mounter pt has began rapidly declining and home has not been trashed. Pt has a pending eviction 12/08 . Per community cabinet mounter pt falls daily. Pt was set up w/ home health during last ED visit. Pt reports feeling anxious before calling EMS. Pt stated that he has not taken medication for anxiety but would consider it. Patient Strengths I'm a strong fighter. Current Behavioral Health Provider(s) Senior Sql Server Developer: Donna Gordon @ Include Facility, Provider, Ph. # [facility] ([phone]) [facility] Community Plate Put In Worker Gregory Sorensen. PCP: [facility]. Hx Mental Health and Chemical Per EMR ETOH use, anoxic brain Dependency injury, HTN, cardiomyopathy, afib, and hypothyroidism. Family Hx of Behavioral Abuse None reported. Psychiatric Hospitalizations (date(s)/ None reported. location) Psychosocial information & Support Pt is a 68 y/o male who lives Systems in an apartment alone in [place]. School/Work Disabled. Legal Concerns Legal Matters - Outstanding Issues None reported. Mental Status Orientation (Person/Place/Time) A/Ox3 Stated Mood Depressed. Affect (Congruent with Mood?) Anxious congruent w/ mood. Thought Content - Specify/Describe Pt is hyperfocused on losing Obsessions, Delusions, Hallucinations his home but cannot provide details on why. If I'm gone too long they will take it from me it's what the housing authority does. Thought Processes (Lrvroxn-Hjhjmwea-Yxos Disorganized/circumstantial. Yjxkxdiw-Wodplzma-Mselcryzpk- Hmqebboskyzapc-Qqcyoib-Azbxcoiyeskt- Thought Blocking) Speech (Ugcnly-Qpho-Lalwolc-Rapid-Soft- Normal, rapid at times. Loud-Pressured) Motor (Dsofai-Rzlpcxmqh-Lzco-Other) Normal. Insight (Cgyd-Smhk-Rlta/Limited) Limited. Judgement (Fbuo-Cocq-Ogli/Limited) Limited. Impulse Control (Adequate-Impaired) Adequate. Memory (Gsneeckhw-Slcqkl-Xonkez, Impaired. Impaired-Intact) Concentration (Intact-Impaired) Impaired. Attention (Intact-Impaired) Intact. Behavior (Appropriate-Inappropriate) Appropriate, calm, and cooperative. Risk Assessment Suicidal Ideation (Plan) No Homicidal Ideation (Plan) No Intervention Intervention MACHINE FOLDER entered the room to meet w / pt. Pt is laying in bed. Pt reports that he feels depressed for calling EMS. They are going to take my housing I shouldn't have come. Pt reports to MACHINE FOLDER that he was feeling anxious and had not eaten or drunken anything all day. Pt stated that he thought he should go to sleep but felt like if he did he would not wake up and . Pt reports that he is looking into alternative hosuign options w/ his piano case maker at [facility]. Pt reports that he uses a walker at home. Pt reports his brother is his DPOA. Pt uses medicaid transport to get around. Pt reports he receives meals on wheels 5x a week. Pt's memory was limited throughout. Pt reports that he falls at least every week but could not remember the last time he fell. He also had a hard time remembering his last doctors appointment. MACHINE FOLDER and pt discussed calling his brother w/his phone next time he feels anxious at home. Pt also was wearing a life alert that he agreed to use in the event of an emergency. Pt reports he has been in the same housing for 7 years and fears losing it but could not pinpoint why he felt that way. Pt has hx of SNF stays due to a previous hip fx. Pt has also had multiple home health referrals most recent coming on 11/03. Pt reprots he coudl be safe goign home. Pt stated he would like to go home to take a shot of crown and go to sleep. Plan RA Plan Pt to be further evaluated medically. González Alvarado, MACHINE FOLDER, TAMMY
--- NOTE | 2023-11-18 20:14 | PC.NURSE ---
Ambulated approx. 50 feet and felt lightheaded and dizzy.
[2023-11-18 20:22] LABS: Ictotest Urine Negative (Negative)
[2023-11-18 20:23] LABS: Ur Creatinine n (Normal); Ur Specific Gravity n (Normal); Urine Amphetamines Negative (Negative); Urine Barbiturates Negative (Negative); Urine Benzodiazepines Negative (Negative); Urine Cocaine Negative (Negative); Urine MDMA Negative (Negative); Urine Methadone Negative (Negative); Urine Methamphetamines Negative (Negative); Urine Opiates Negative (Negative); Urine Oxycodone Negative (Negative); Urine Phencyclidine Negative (Negative); Urine THC Negative (Negative); Urine Tricyclic Antidepressant Negative (Negative); Urine pH n (Normal)
--- NOTE | 2023-11-18 20:27 | PC.NURSE ---
tried to ambulate pt; pt stated that's going to be hard asked pt why pt stated because I'm desperate, desperate for anything was able to get pt up on the walker pt stated he felt like he was going to fall; sat pt back down. Informed doctor. Walked by pt room, pt stated he wants to try again. Pt ambulated with walker about 5 steps during ambulation trial pt stated he felt dizzy and unsafe,
[2023-11-18 20:28] LABS: Bacteria Urine None Seen; RBC Urine None Seen (0-5/HPF); Squamous Epithelial Cell Urine None Seen (0-5/HPF); Urine Volume 10mL (spun); WBC Urine None Seen (0-5/HPF)
--- NOTE | 2023-11-18 22:48 | ED_ITS ---
HPI - Altered Mental Status General Chief Complaint: Altered Mental Status Stated Complaint: Failure To Thrive Time Seen by Provider: 11/18/23 18:02 Source: patient and EMS Mode of arrival: EMS History of Present Illness HPI narrative: Patient is a 68-year-old male history of longstanding alcohol abuse, ongoing issues with failure to thrive. EMS has been to his house multiple times he is to the ED in this facility multiple times as well. Today he called EMS because he felt like he needed to come to the hospital because he could not care for himself. He apparently was hungry him EMS he did him up hot pocket before coming he said it was too hot he tumbled it and did not quite eat it. He falls regularly falls at home often. Denying any injury from falls. He states that his last drink was 2 days ago. He denies any current DTs. He does have some shakes but he says it has not withdrawal. He overall has a extremely for hygiene appears malnourished. He says sometimes he has feeling a little bit anxious According to social work note he is pending eviction on December 08. Community synthetic filament spinner has been involved in care. He falls daily. He was recently seen in the ED on November 03 for something similar. Patient is requesting to go home. Related Data Home Medications Medication Instructions Recorded Confirmed trazodone 50 mg tablet 50 mg PO BEDTIME 09/20/22 11/04/23 losartan 50 mg tablet 50 mg PO DAILY 11/04/23 11/04/23 Previous Rx's Medication Instructions Recorded levothyroxine 75 mcg tablet 75 mcg PO QDAY #90 tabs 04/15/22 (Synthroid) carvedilol 3.125 mg tablet 3.125 mg PO BID #60 tabs 03/02/23 losartan 100 mg tablet 100 mg PO DAILY #30 tabs 03/02/23 Allergies Allergy/AdvReac Type Severity Reaction Status Date / Time ciprofloxacin [From CIPRO] Allergy Severe SWELLING Verified 11/03/23 23:20 IN HANDS, ARMS, LEGS AND FEET pantoprazole AdvReac Intermediate n/v, Verified 11/03/23 23:20 omeprazole okay Patient History Medical History Acute hyponatremia Intertrochanteric fracture of left hip Alcoholism Anoxic brain injury Essential hypertension Cardiomyopathy Paroxysmal atrial fibrillation Alcohol dependence Elevated liver function tests Pulmonary nodule (~07/2019) COPD (chronic obstructive pulmonary disease) Impaired vision GERD (gastroesophageal reflux disease) Hypothyroidism Eczema (2017) Chronic cough (1999) Dislocated elbow (2000) Dislocated shoulder (2001) Fractures (~1963) Cataracts, bilateral (2007) Surgical History History of repair of hiatal hernia Hx of hernia repair (1995) History of nasal surgery (1963) History of cataract removal with insertion of prosthetic lens Family History Father History of arteriosclerotic cardiovascular disease History of emphysema Mother Cancer Grandfather No problems noted. Grandmother Stroke Grandfather No problems noted. Grandmother No problems noted. Social History household members: family and none Smoking Status: Current every day smoker Tobacco: How many years used: 22 quit status: not considering quitting second hand exposure: No alcohol intake: current substance use type: does not use Smoking Status: Current every day smoker tobacco type: cigarettes alcohol intake frequency: 3 or more drinks per day Alcohol type: beer and hard liquor Substance Use Type: does not use Exam Initial Vital Signs Initial Vital Signs: Vital Signs Pulse Rate 69 11/18/23 16:07 Pulse Oximetry 98 11/18/23 16:07 GENERAL: Chronically ill-appearing 68-year-old male appears disheveled with poor hygiene HEENT: Head atraumatic,EOMI, pupils reactive, face symmetric, moist mucous membranes CARDIOVASCULAR: Regular rate and rhythm without murmurs, rubs or gallops. RESPIRATORY: Breath sounds equal bilaterally, no wheezes rales or rhonchi. ABDOMEN: Soft, nontender. Normoactive bowel sounds all 4 quadrants. No guarding or rebound. EXTREMITIES: Normal range of motion, no clubbing or edema. Neurovascularly intact NEUROLOGICAL: Alert moving all extremities obvious resting tremor SKIN: Warm, dry, no laceration, no petechiae, no rashes or lesions. Course Orders Ordered: ED Orders 11/18/23 20:00 Ictotest Urine Stat Urine Culture Stat Urine Drug Screen, Rapid Stat Urine Microscopic Stat Discontinued Medications Folic Acid (Folic Acid 1 Mg Tablet) 1 mg PO NOW ONE Stop: 11/18/23 23:01 Last Admin: 11/18/23 23:21 Dose: 1 mg Documented By: ZURDO Thiamine HCl 200 mg/ Sodium (Chloride) 102 mls @ 408 mls/hr IV NOW ONE Stop: 11/18/23 23:01 Last Infusion: 11/18/23 23:41 Dose: Infused Documented By: Admin: 11/18/23 23:21 Dose: 408 mls/hr Documented By: ZURDO Vital Signs Vital signs: Vital Signs - 8 hr 11/18/23 20:30 11/18/23 21:00 11/18/23 21:00 Pulse Rate 55 L 57 L Respiratory Rate Blood Pressure 159/84 H Pulse Oximetry 95 96 Oxygen Delivery Method 11/18/23 21:30 11/18/23 21:30 11/18/23 22:00 Pulse Rate 54 L 52 L Respiratory Rate Blood Pressure 146/81 H Pulse Oximetry 94 96 Oxygen Delivery Method Room Air 11/18/23 22:00 11/18/23 22:30 11/18/23 22:31 Pulse Rate 57 L 59 L Respiratory Rate Blood Pressure 150/81 H Pulse Oximetry 97 96 Oxygen Delivery Method 11/18/23 22:31 11/18/23 23:00 11/18/23 23:01 Pulse Rate 63 64 Respiratory Rate 16 Blood Pressure 163/75 H Pulse Oximetry 96 97 Oxygen Delivery Method Room Air 11/18/23 23:01 Pulse Rate Respiratory Rate Blood Pressure 182/91 H Pulse Oximetry Oxygen Delivery Method MDM - Altered Mental Status Lab Data 11/18/23 16:29 11/18/23 16:29 Labs: Lab Results 11/18/23 11/18/23 Range/Units 16:29 20:00 WBC 5.4 (4.5-11.0) X10^3/uL RBC 4.63 (4.5-5.9) X10^6/uL Hgb 14.8 (13.5-17.5) g/dL Hct 43.3 (41-53) % MCV 93.5 (80-100) fL MCH 32.0 (26-34) PG MCHC 34.2 (30-36) % RDW 13.8 (11.6-14.8) % Plt Count 280 (150-400) X10^3/uL Neut % (Auto) 85.8 H (50-75) % Lymph % (Auto) 6.9 L (25-40) % [place] % (Auto) 7.0 (3-14) % Eos % (Auto) 0.1 L (2-4) % Baso % (Auto) 0.2 (0-2) % Neut # (Auto) 4600 (0638-7074) /uL Lymph # (Auto) 400 L (4256-9335) /uL [place] # (Auto) 400 (0-900) /uL Eos # (Auto) 0 (0-450) /uL Baso # (Auto) 0 (0-100) /uL Sodium 124 L (137-145) mmol/L Potassium 3.9 (3.4-5.1) mmol/L Chloride 94 L (98-107) mmol/L Carbon Dioxide 24 (22-32) mmol/L BUN 7 L (9-20) mg/dL Creatinine 0.45 L (0.66-1.25) mg/dL Estimated GFR > 60 (>60) mL/min BUN/Creatinine Ratio 15.6 (6-22) Glucose 169 H (80-110) mg/dL Calcium 8.3 L (8.4-10.2) mg/dL Total Bilirubin 0.8 (0.2-1.3) mg/dL AST 32 (17-59) IU/L ALT 18 (<50) IU/L Alkaline Phosphatase 91 (38-126) U/L Total Protein 6.9 (6.3-8.2) g/dL Albumin 3.5 (3.5-5.0) g/dL Globulin 3.4 (1.7-4.1) g/dL Albumin/Globulin Ratio 1.0 (1.0-2.8) TSH 1.20 (0.47-4.68) uIU/mL Free T4 1.76 (0.78-2.19) ng/dL Ur Bilirubin Confirm Negative (Negative) Urine RBC None seen (0-5/HPF) Urine WBC None seen (0-5/HPF) Ur Squamous Epith Cells None seen (0-5/HPF) Urine Bacteria None seen (None) Vol Urine Centrifuged 10ml (spun) Salicylates < 1.0 (<20) mg/dL U Opiates 300ng/mL cut Negative (Negative) Ur Oxycodone Screen Negative (Negative) Urine Methadone Screen Negative (Negative) Acetaminophen < 10 (10-30) ug/mL Ur Barbiturates Screen Negative (Negative) U Tricyclic Antidepress Negative (Negative) Ur Phencyclidine Scrn Negative (Negative) Ur Amphetamines Screen Negative (Negative) U Methamphetamines Scrn Negative (Negative) Ur MDMA Scrn (Ecstasy) Negative (Negative) U Benzodiazepines Scrn Negative (Negative) Urine Cocaine Screen Negative (Negative) U Marijuana (THC) Screen Negative (Negative) Urine pH n (Normal) Urine Specific [place] n (Normal) Ethyl Alcohol < 10 ( - 10) mg/dL Ur Creatinine n (Normal) Urine Dip Bedside Urine Glucose 100 mg/dl Bedside Urine Bilirubin + 1 Bedside Urine Ketone +/- 5 Urine Specific [place] 1.015 Bedside Urine Occult Blood - Negative Bedside Urine pH 6.0 Bedside Urine Protein - Negative Bedside Urine Urobilinogen 1+ 2mg Bedside Urine Nitrite - Negative Bedside Urine Leukocytes - Negative Esterase Imaging Data CT scan - head: Radiologist's Impression: PROCEDURE: CT HEAD/BRAIN WO CON INDICATIONS: falls TECHNIQUE: Noncontrast 4.5 mm thick angled axial sections acquired from the foramen magnum to the vertex, with coronal and sagittal reformats. For radiation dose reduction, the following was used: automated exposure control, adjustment of mA and/or kV according to patient size. COMPARISON: [facility], CT, CT HEAD/BRAIN WO CON, 02/24/2023, 10:39. [facility], CT, CT HEAD/BRAIN WO CON, 11/03/2023, 23:41. FINDINGS: Image quality: Diagnostic. CSF spaces: Basal cisterns are patent. No extra-axial fluid collections. Ventricles are normal in size and shape. Brain: No midline shift. No intracranial masses or hemorrhage. No area of hypodensity in a large vascular distribution to suggest acute infarction. Periventricular hypodensity consistent with chronic microvascular ischemic change. Age-related parenchymal loss. Skull and face: Calvarium and visualized facial bones are intact, without suspicious lesions. Sinuses: Scant mucosal thickening in the maxillary sinuses. Visualized sinuses and mastoids are otherwise clear. IMPRESSION: No interval change appreciated. No acute intracranial hemorrhage. Dictated by: Jean Paul Slade M.D. on 11/18/2023 at 19:08 ECG Data Attestation: I personally reviewed and interpreted this ECG as follows: Interpretation: Sinus rhythm rate 60 IN interval 148 QRS 80 QTC [address] changes similar to previous EKGs MDM Narrative Medical decision making narrative: Patient 68-year-old male with feeling at home history of alcohol abuse closed head injuries multiple falls presenting today with similar. Although now requesting to go home Blood work has been reviewed chronically hyponatremia, sodium today 124 previously was 125 glucose 169 creatinine 0.45 TSH 1.2 urinalysis negative Imaging reviewed head CT negative Patient ambulates with a walker. He is given food thiamine and folate here. At this time he is requesting to go home he does have some hyponatremia slightly worse than normal but only by 1 point. Patient has been unable to care for himself for long standing time. Last note reports that his house is on an habit of all due to extremely foul smell amount of waste feels and cigarette smoke. Today is similar. He was evaluated by social worker delinquency prevention earlier this month and again today. APS is involved in case. He has significant self neglect however not sure that guardianship process has been started. He has previously had a caregiver he currently does not have a caregiver. As it is time he really does not meet any sort of admission criteria. BLS arrangement for him to go home. He was fed a sandwich. Discharge Plan Departure Patient Disposition: Home Clinical Impression: Alcohol abuse Instructions: Alcohol Use Disorder Activity Restrictions/Additional Instructions: *You have been diagnosed with alcohol abuse *What to do: *Continue to take medications as directed *Follow up with your primary care provider in 2-3 days or call [phone] *Return to ER if you should have any new, worsening or concerning symptoms Prescriptions: No Action levothyroxine [Synthroid] 75 mcg tablet 75 mcg PO QDAY Qty: 90 3RF trazodone 50 mg tablet 50 mg PO BEDTIME Patient Comments: TAKE ONE TABLET BY MOUTH NIGHTLY AT BEDTIME carvedilol 3.125 mg tablet 3.125 mg PO BID Qty: 60 0RF Rx Instructions: must administer with a meal/food losartan 100 mg tablet 100 mg PO DAILY Qty: 30 0RF losartan 50 mg tablet 50 mg PO DAILY Referrals: Yasmine Gibbs RN [Primary Care Provider] - Stand Alone Forms: Patient Portal/API
[2023-11-18] MEDS: THIAMINE 200 MG in SODIUM CHLORIDE 0.9% 100 ML 408 MG IV (23:21)
[2023-11-18] MEDS: FOLIC ACID 1 MG TABLET PO (23:21)
== END 2023-11-19 00:40 | disposition home or self-care (01) ==
PROVIDERS: Emergency Medicine; Emergency Provider Emergency Medicine; PCP Nurse Practitioner Family
DX: F10.10 Alcohol abuse, uncomplicated (principal); Y90.0 Blood alcohol level of less than 20 mg/100 ml
CPT/HCPCS: 70450; 80053; 80305; 80320; 80329; 81003; 81015; 84439; 84443; 85025; 87086; 93005; 96365; 99284; G0480

== ENCOUNTER 2023-11-21 09:05 | Emergency (ER) | payer MEDICARE, MEDICAID, SELFPAY ==
[2020-02-23 11:45] VITALS: PULSE 67; RESP 20; O2SAT 100
[2023-11-21] VITALS (7 sets, daily range): BP systolic 183–196; BP diastolic 95–98; PULSE 59–78; RESP 24–32; TEMP 36.2; O2SAT 95–98
--- NOTE | 2023-11-21 09:04 | DI.RAD.S_ITS ---
PROCEDURE: XR CHEST 1V INDICATIONS: gen weakness, failure to thrive/can't eat/drink TECHNIQUE: One view of the chest was acquired. COMPARISON: [facility], CR, XR CHEST 1V, 11/03/2023, 23:32. FINDINGS: Surgical changes and devices: None. Lungs and pleura: Lungs are clear. No pleural effusions or pneumothorax. Mediastinum: Mediastinal contours appear normal. Heart size is normal. Bones and chest wall: Multiple healed posterior left rib fractures are redemonstrated. No suspicious bony lesions. Overlying soft tissues appear unremarkable. IMPRESSION: No acute cardiopulmonary abnormality is seen. Dictated by: Bee Valladares M.D. on 11/21/2023 at 10:04 Approved by: Bee Valladares M.D. on 11/21/2023 at 10:05
--- NOTE | 2023-11-21 09:10 | ED_ITS ---
HPI - General Adult General Chief complaint: Recheck/Abnormal Lab/Rx Stated complaint: Feels like he is dying Time Seen by Provider: 11/21/23 09:07 History of Present Illness HPI narrative: 68yoM with PMH alcohol abuse, tobacco abuse, HTN presents by EMS from his housing assignment for varied complaints. Patient told EMS that he got up this morning and felt very generally weak. He said he did not feel like he could eat or drink anything and was having difficulty having a bowel movement. He told EMS ?I feel like I am dying?. Patient very well known to this emergency department, frequently presents intoxicated, has been offered home health services multiple times but refuses. Related Data Home Medications Medication Instructions Recorded Confirmed trazodone 50 mg tablet 50 mg PO BEDTIME 09/20/22 11/04/23 losartan 50 mg tablet 50 mg PO DAILY 11/04/23 11/04/23 Previous Rx's Medication Instructions Recorded levothyroxine 75 mcg tablet 75 mcg PO QDAY #90 tabs 04/15/22 (Synthroid) carvedilol 3.125 mg tablet 3.125 mg PO BID #60 tabs 03/02/23 losartan 100 mg tablet 100 mg PO DAILY #30 tabs 03/02/23 Allergies Allergy/AdvReac Type Severity Reaction Status Date / Time ciprofloxacin [From CIPRO] Allergy Severe SWELLING Verified 11/21/23 09:13 IN HANDS, ARMS, LEGS AND FEET pantoprazole AdvReac Intermediate n/v, Verified 11/21/23 09:13 omeprazole okay Review of Systems Review of Systems Narrative: Negative except as noted above Patient History Medical History Acute hyponatremia Intertrochanteric fracture of left hip Alcoholism Anoxic brain injury Essential hypertension Cardiomyopathy Paroxysmal atrial fibrillation Alcohol dependence Elevated liver function tests Pulmonary nodule (~07/2019) COPD (chronic obstructive pulmonary disease) Impaired vision GERD (gastroesophageal reflux disease) Hypothyroidism Eczema (2016) Chronic cough (1999) Dislocated elbow (2000) Dislocated shoulder (2001) Fractures (~1963) Cataracts, bilateral (2007) Surgical History History of repair of hiatal hernia Hx of hernia repair (1995) History of nasal surgery (1963) History of cataract removal with insertion of prosthetic lens Family History Father History of arteriosclerotic cardiovascular disease History of emphysema Mother Cancer Grandfather No problems noted. Grandmother Stroke Grandfather No problems noted. Grandmother No problems noted. Social History household members: family and none Smoking Status: Current every day smoker Tobacco: How many years used: 22 quit status: not considering quitting second hand exposure: No alcohol intake: current substance use type: does not use Smoking Status: Current every day smoker tobacco type: cigarettes alcohol intake frequency: 3 or more drinks per day Alcohol type: beer and hard liquor Substance Use Type: does not use Exam Initial Vital Signs Initial Vital Signs: Vital Signs Temperature 97.1 F L 11/21/23 09:10 Pulse Rate 78 11/21/23 09:10 Respiratory Rate 24 11/21/23 09:10 Blood Pressure 196/98 H 11/21/23 09:10 Pulse Oximetry 97 11/21/23 09:10 Oxygen Delivery Method Room Air 11/21/23 09:10 Const: Awake, alert, no acute distress, frail, appears chronically unwell, older than stated age Cardiac: regular rate, regular rhythm RESP: unlabored, clear bilaterally, no wheezing GI: Soft, nontender, nondistended, no rebound, no guarding MSK: Atraumatic, full range of motion, pulses equal Skin: Warm, Dry, intact, no rashes Neuro: AO x3, CN II-XII grossly intact, moves all extremities, ambulatory unassisted with a walker Course Orders Ordered: ED Orders 11/21/23 09:04 Chest [XR chest 1V] Stat 11/21/23 09:13 Consult to SENIOR CREDIT OFFICER - Senior Fund Accountant Stat 11/21/23 09:15 XR KUB Stat 11/21/23 10:05 UA Complete [Urinalysis and Microscopic] Stat 11/21/23 10:10 Ammonia (NH3) Stat CBC Auto Diff [Complete Blood Count AUTO DIFF] Stat CMP [Comprehensive Metabolic Panel] Stat Ethanol (ETOH) Stat Troponin & CK Cardiac Panel Stat Discontinued Medications Folic Acid (Folic Acid 1 Mg Tablet) 1 mg PO NOW ONE Stop: 11/21/23 09:04 Last Admin: 11/21/23 09:27 Dose: 1 mg Documented By: RAPHAEL Sodium Chloride (Normal Saline 0.9%) 1,000 mls @ 1,000 mls/hr IV BOLUS ONE Stop: 11/21/23 10:02 Last Infusion: 11/21/23 11:26 Dose: Infused Documented By: Admin: 11/21/23 10:13 Dose: 1,000 mls/hr Documented By: RAPHAEL Thiamine HCl 200 mg/ Sodium (Chloride) 102 mls @ 408 mls/hr IV NOW ONE Stop: 11/21/23 09:04 Last Infusion: 11/21/23 10:35 Dose: Infused Documented By: Admin: 11/21/23 10:11 Dose: 408 mls/hr Documented By: RAPHAEL Lactulose (Lactulose 20 Gm/30 Ml Solution) 20 gm PO NOW ONE Stop: 11/21/23 09:17 Last Admin: 11/21/23 10:11 Dose: 20 gm Documented By: RAPHAEL Polyethylene Glycol (Polyethylene Glycol 3350 17 Gm Powd.Pack) 17 gm PO NOW ONE Stop: 11/21/23 09:17 Last Admin: 11/21/23 10:12 Dose: 17 gm Documented By: RAPHAEL Sennosides (Sennosides 8.6 Mg Tablet) 17.2 mg PO NOW ONE Stop: 11/21/23 09:17 Last Admin: 11/21/23 10:11 Dose: 17.2 mg Documented By: RAPHAEL Vital Signs Vital signs: Vital Signs - 8 hr 11/21/23 09:10 11/21/23 09:10 11/21/23 09:12 Temperature 97.1 F L Pulse Rate 78 74 67 Respiratory Rate 24 24 32 H Blood Pressure 196/98 H Pulse Oximetry 97 97 98 Oxygen Delivery Method Room Air 11/21/23 09:12 11/21/23 09:49 11/21/23 09:50 Temperature Pulse Rate 73 73 Respiratory Rate Blood Pressure 196/98 H Pulse Oximetry 96 96 Oxygen Delivery Method 11/21/23 09:50 11/21/23 10:00 11/21/23 11:34 Temperature Pulse Rate 59 L 74 Respiratory Rate Blood Pressure 183/95 H Pulse Oximetry 96 Oxygen Delivery Method Room Air 11/21/23 11:37 Temperature Pulse Rate 66 Respiratory Rate Blood Pressure Pulse Oximetry 95 Oxygen Delivery Method Room Air Medical Decision Making Lab Data 11/21/23 10:10 11/21/23 10:10 Labs: Lab Results 11/21/23 11/21/23 Range/Units 10:05 10:10 WBC 4.5 (4.5-11.0) X10^3/uL RBC 4.47 L (4.5-5.9) X10^6/uL Hgb 14.5 (13.5-17.5) g/dL Hct 41.7 (41-53) % MCV 93.3 (80-100) fL MCH 32.6 (26-34) PG MCHC 34.9 (30-36) % RDW 13.7 (11.6-14.8) % Plt Count 249 (150-400) X10^3/uL Neut % (Auto) 60.6 (50-75) % Lymph % (Auto) 22.3 L (25-40) % [place] % (Auto) 15.6 H (3-14) % Eos % (Auto) 0.5 L (2-4) % Baso % (Auto) 1.0 (0-2) % Neut # (Auto) 2700 (6683-0489) /uL Lymph # (Auto) 1000 L (9947-2887) /uL [place] # (Auto) 700 (0-900) /uL Eos # (Auto) 0 (0-450) /uL Baso # (Auto) 0 (0-100) /uL Sodium 128 L (137-145) mmol/L Potassium 4.5 (3.4-5.1) mmol/L Chloride 97 L (98-107) mmol/L Carbon Dioxide 28 (22-32) mmol/L BUN 8 L (9-20) mg/dL Creatinine 0.53 L (0.66-1.25) mg/dL Estimated GFR > 60 (>60) mL/min BUN/Creatinine Ratio 15.1 (6-22) Glucose 88 (80-110) mg/dL Calcium 8.3 L (8.4-10.2) mg/dL Total Bilirubin 1.1 (0.2-1.3) mg/dL AST 29 (17-59) IU/L ALT 18 (<50) IU/L Alkaline Phosphatase 89 (38-126) U/L Ammonia < 9 L (9-30) umol/L Total Creatine Kinase 60 (55-170) U/L Troponin I < 0.012 (0.01-0.034) ng/mL Total Protein 6.6 (6.3-8.2) g/dL Albumin 3.2 L (3.5-5.0) g/dL Globulin 3.4 (1.7-4.1) g/dL Albumin/Globulin Ratio 0.9 L (1.0-2.8) Urine Color Yellow Urine Appearance Clear Urine pH 7.5 (4.5-8.0) Ur Specific [place] 1.010 (1.000-1.035) Urine Protein Negative (Negative) Urine Glucose (UA) Negative (Negative) g/dL Urine Ketones Trace H (NEGATIVE) Urine Occult Blood Negative (Negative) Urine Nitrate Negative (Negative) Urine Bilirubin Negative (NEGATIVE) Urine Urobilinogen 1.0 (0.2) E.U./dL Ur Leukocyte Esterase Negative (NEGATIVE) Urine RBC None seen (0-5/HPF) Urine WBC 0-1/hpf (0-5/HPF) Ur Squamous Epith Cells None seen (0-5/HPF) Urine Bacteria Occasional (0-1) (None) Ur Culture Indicated? Cult not indicated Vol Urine Centrifuged 10ml (spun) Ethyl Alcohol < 10 ( - 10) mg/dL Urine Dip Bedside Urine Glucose Negative Bedside Urine Bilirubin - Negative Bedside Urine Ketone +/- 5 Urine Specific [place] 1.010 Bedside Urine Occult Blood +/- Bedside Urine pH 7.5 Bedside Urine Protein - Negative Bedside Urine Urobilinogen - Negative Bedside Urine Nitrite - Negative Bedside Urine Leukocytes - Negative Esterase Point of care testing: Urine Dip Bedside Urine Glucose Negative Bedside Urine Bilirubin - Negative Bedside Urine Ketone +/- 5 Urine Specific [place] 1.010 Bedside Urine Occult Blood +/- Bedside Urine pH 7.5 Bedside Urine Protein - Negative Bedside Urine Urobilinogen - Negative Bedside Urine Nitrite - Negative Bedside Urine Leukocytes - Negative Esterase MDM Narrative Medical decision making narrative: Chronically unwell but nontoxic appearing patient with multiple complaints. Patient states he feels generally weak, does not feel like he can eat or drink anything, and generally feels poorly. Also complaining that he can not have a bowel movement today. Past small amount of stool yesterday. Abdomen soft and nontender. Laboratory work is reviewed, WBC count 4.5, hemoglobin 14.5, sodium 128 (baseline), creatinine 0.53, ammonia less than 9, troponin undetectable. Patient ambulatory with a walker without additional assistance to and from the restroom. No medical indication for admission. Patient passed BM while in ED. Social work evaluated the patient, in process of arranging home health. In addition patient has regular visitation from the community beauty consultant. Patient transported home in stable condition. Discharge Plan Departure Patient Disposition: Home Clinical Impression: Generalized weakness Constipation Qualifiers: Constipation type: unspecified constipation type Qualified Code(s): K59.00 - Constipation, unspecified Instructions: DI for Constipation Activity Restrictions/Additional Instructions: Follow up with your primary care doctor. Check in with the home health nurses and visiting medic. Take MiraLax daily for constipation Prescriptions: No Action levothyroxine [Synthroid] 75 mcg tablet 75 mcg PO QDAY Qty: 90 3RF trazodone 50 mg tablet 50 mg PO BEDTIME Patient Comments: TAKE ONE TABLET BY MOUTH NIGHTLY AT BEDTIME carvedilol 3.125 mg tablet 3.125 mg PO BID Qty: 60 0RF Rx Instructions: must administer with a meal/food losartan 100 mg tablet 100 mg PO DAILY Qty: 30 0RF losartan 50 mg tablet 50 mg PO DAILY Referrals: Yasmine Gibbs RN [Primary Care Provider] - Stand Alone Forms: Patient Portal/API
--- NOTE | 2023-11-21 09:15 | DI.RAD.S_ITS ---
PROCEDURE: XR KUB INDICATIONS: cant' poop x1 day TECHNIQUE: One view of the abdomen acquired. COMPARISON: None. FINDINGS: Surgical changes and devices: None. Bowel: Bowel gas pattern is normal. Soft tissues: No suspicious abdominal calcifications. Visualized solid organ contours appear normal in size. Bones: No suspicious bony lesions. Marked chronic appearing posttraumatic and postoperative changes are partially characterized at the superior left femur. IMPRESSION: No acute abnormality. Dictated by: Bee Valladares M.D. on 11/21/2023 at 10:05 Approved by: Bee Valladares M.D. on 11/21/2023 at 10:06
[2023-11-21] MEDS: FOLIC ACID 1 MG TABLET PO (09:27)
--- NOTE | 2023-11-21 09:31 | PC.NURSE ---
Patient has difficulty following commands, requires multiple redirections. Repetitive questions
[2023-11-21] MEDS: THIAMINE 200 MG in SODIUM CHLORIDE 0.9% 100 ML 408 MG IV (10:11)
[2023-11-21] MEDS: LACTULOSE 20 GM/30 ML SOLUTION PO (10:11)
[2023-11-21] MEDS: SENNOSIDES 8.6 MG TABLET 17.2 MG PO (10:11)
[2023-11-21] MEDS: polyethylene glycoL 3350 17 GM POWD.PACK PO (10:12)
[2023-11-21] MEDS: SODIUM CHLORIDE 0.9% 1,000 ML 1000 ML IV (10:13)
[2023-11-21 10:20] LABS: Add Manual Diff / Slide Review NO; Basophils Absolute Auto 0 /uL (0-100); Eosinophils Absolute Auto 0 /uL (0-450); Eosinophils Percent Auto 0.5 % (2-4); Hematocrit 41.7 % (41-53); Hemoglobin 14.5 g/dL (13.5-17.5); Lymphocytes Absolute Auto 1000 /uL (1100-4500); Lymphocytes Percent Auto 22.3 % (25-40); Mean Corpuscular HGB Conc 34.9 % (30-36); Mean Corpuscular Hemoglobin 32.6 PG (26-34); Mean Corpuscular Volume 93.3 fL (80-100); Monocytes Absolute Auto 700 /uL (0-900); Monocytes Percent Auto 15.6 % (3-14); Neutrophils Absolute Auto 2700 /uL (1500-7000); Neutrophils Percent Auto 60.6 % (50-75); Platelet Count 249 X10^3/uL (150-400); Red Blood Cell Count 4.47 X10^6/uL (4.5-5.9); Red Cell Distribution Width 13.7 % (11.6-14.8); White Blood Cell Count 4.5 X10^3/uL (4.5-11.0)
[2023-11-21 10:35] LABS: Ammonia (NH3) < 9 umol/L (9-30)
[2023-11-21 10:37] LABS: Alanine Aminotransferase 18 IU/L (<50); Albumin 3.2 g/dL (3.5-5.0); Albumin Globulin Ratio 0.9 (1.0-2.8); Alkaline Phosphatase 89 U/L (38-126); Aspartate Aminotransferase 29 IU/L (17-59); BUN Creatinine Ratio 15.1 (6-22); Bilirubin Total 1.1 mg/dL (0.2-1.3); Blood Urea Nitrogen 8 mg/dL (9-20); Calcium 8.3 mg/dL (8.4-10.2); Carbon Dioxide 28 mmol/L (22-32); Chloride 97 mmol/L (98-107); Creatine Kinase 60 U/L (55-170); Estimated Glomerular Filt Rate > 60 mL/min (>60); Ethanol (ETOH) < 10 mg/dL; Globulin 3.4 g/dL (1.7-4.1); Glucose 88 mg/dL (80-110); HEMOLYSIS < 15 (0-50); Potassium 4.5 mmol/L (3.4-5.1); Sodium 128 mmol/L (137-145); Total Protein 6.6 g/dL (6.3-8.2)
[2023-11-21 10:38] LABS: Appearance Urine UA CLEAR; Bilirubin Urine UA NEGATIVE (NEGATIVE); Color Urine UA YELLOW; Glucose Urine UA NEGATIVE (Negative); Ketones Urine UA TRACE (NEGATIVE); Leukocyte Esterase Urine UA NEGATIVE (NEGATIVE); Nitrite Urine UA NEGATIVE (Negative); Occult Blood Urine UA NEGATIVE (Negative); Protein Urine UA NEGATIVE (Negative); pH Urine UA 7.5 (4.5-8.0)
[2023-11-21 10:48] LABS: Troponin I < 0.012 ng/mL (0.01-0.034)
[2023-11-21 10:49] LABS: Bacteria Urine Occasional (0-1); Culture Indicated Urine Cult Not Indicated; RBC Urine None Seen (0-5/HPF); Squamous Epithelial Cell Urine None Seen (0-5/HPF); Urine Volume 10mL (spun); WBC Urine 0-1/HPF (0-5/HPF)
--- NOTE | 2023-11-21 11:35 | PC.NURSE ---
Pt soiled his brief and was assisted up to BSC for bowel movement and brief change. Pt stand by assist with walker. Pt repeatedly stands up off of commode, turns to look at his BM production, and then sits back on commode to attempt to pass more stool. Pt assisted into bed.
--- NOTE | 2023-11-21 12:44 | CM.SWNOTE ---
ED CHEMICAL DEPENDENCY PROFESSIONAL Note Patient is 68 y/o male who presents to ED via BLS due to concern for weakness, inability to have BM and concern for eating and drinking. Patient has hx of two similar ED presentations in the last few weeks. Patient has current support from [facility] case packer and sealer, Sonia TOTH and visiting RN through [facility]. Patient's PCP is RYAN Delarosa, Patient has Medicaid, [employer] and Medicare insurance. Patient has hx of ETOH and Tobacco use, essential hypertension, Cardiomyopathy, and acquired hypothyroidism. CHEMICAL DEPENDENCY PROFESSIONAL calls patient's [facility] case packer and sealer November (ph# [phone], ext [phone]) and leaves requesting return call. CHEMICAL DEPENDENCY PROFESSIONAL calls Gregory Coperamírez [facility] heel nailing machine operator and leaves regarding patient. CHEMICAL DEPENDENCY PROFESSIONAL calls Sonia TOTH and confirms that patient is currently receiving services from Sonia , CHEMICAL DEPENDENCY PROFESSIONAL informs Shivani at [facility] of patient's presentation and upcoming d/c to home today. Per CNAs, patient is able to void his BM multiple times in ED. lab tech enter room to meet with patient, present is Gregory Sorensen. Patient presents as A/Ox4 and states that he wants to go home, and he did not want to come to ED today. Patient endorses concern for his inability to have a BM prior to calling EMS and EMS brought patient to ED. Patient endorses awareness that he is going to be evicted on 12/09/23, Gregory informs patient of what led to this. Patient presents with concern about where he is going to live and patient presents with openness to living at a care facility. CHEMICAL DEPENDENCY PROFESSIONAL and Gregory encourage him to f/u with his [facility] case packer and sealer. Patient endorses he is able to get up and ambulate to the bathroom for BMs and uses a urinal at home. Patient states he has access to food from [employer] Whe[employer]. Patient endorses that he has a life alert and his brother who lives in [place] visits him once every few weeks. Patient denies recent GLFs or recent ETOH or tobacco use. Patient requests to go home and agrees to d/c to home upon medical clearance with S. Gregory Coperamírez plans to visit patient later this afternoon or tomorrow at the latest. Last week this CHEMICAL DEPENDENCY PROFESSIONAL attended a community meeting regarding this patient and was informed that any APS reports made for this patient are screened out because he has a current state case technician through [facility]. There is concern for barriers in patient accessing higher level of care and patient not receiving assistances for ADLs at this time as patient is in between caregivers. It was reported that patient has not had a caregiver in the home for at least 6 months due to lack of caregivers, patient's hx of behaviors and cigarette use. Patient has frequent coordination between [facility] case packer and sealer and [facility] [employer] [employer], at this time [facility] case packer and sealer is looking into assessment process for higher level of care. Plan: patient to d/c to home upon medical clearance with BLS, [facility], [facility] and [facility] to f/u with patient. Sophie Martínez, [employer]
== END 2023-11-21 13:30 | disposition home or self-care (01) ==
PROVIDERS: Emergency Provider Emergency Medicine; PCP Nurse Practitioner Family
DX: R53.1 Weakness (principal); K59.00 Constipation, unspecified; R62.7 Adult failure to thrive
CPT/HCPCS: 36415; 71045; 74018; 80053; 80320; 81001; 81003; 82140; 82550; 84484; 85025; 99284

== ENCOUNTER 2023-12-03 08:22 | Emergency (ER) | payer MEDICARE, MEDICAID, SELFPAY ==
[2020-02-23 11:45] VITALS: PULSE 67; RESP 20; O2SAT 100
[2023-12-03] VITALS (11 sets, daily range): BP systolic 142–183; BP diastolic 83–109; PULSE 57–91; RESP 16–27; TEMP 36.6; O2SAT 94–98; BMI 21.5
--- NOTE | 2023-12-03 09:00 | PC.NURSE ---
Pt repeatedly asks where his belongings are. Pt is holding his belongings in a bag under his gown. Pt refused utilizing the hospital safe and states he will hold onto them the whole time. Pt is alert and oriented, but forgetful.
--- NOTE | 2023-12-03 09:00 | ED_ITS ---
HPI - Weakness General Chief complaint: Weakness Stated complaint: Fatigue, weakness Time Seen by Provider: 12/03/23 08:35 Source: patient and EMS Mode of arrival: EMS History of Present Illness HPI Narrative: Patient is a 68-year-old male with history of alcohol abuse hypertension failure to thrive, presenting today with increasing weakness. EMS reports that they of been called on him 4 times in the last 8 hours. He is in the process of being evicted from his home but is not affected. He is well known to this facility and myself. He is in the hospital today because he feels like he has not going to wake up. He feels like he gets panicky. He was last seen here on November 20. He is previously refused hospitalization and services. He has significant scratches on his right hip which are scabbed over. No obvious source of trauma. 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 Related Data Home Medications Medication Instructions Recorded Confirmed trazodone 50 mg tablet 50 mg PO BEDTIME 09/20/22 11/04/23 losartan 50 mg tablet 50 mg PO DAILY 11/04/23 11/04/23 Previous Rx's Medication Instructions Recorded levothyroxine 75 mcg tablet 75 mcg PO QDAY #90 tabs 04/15/22 (Synthroid) carvedilol 3.125 mg tablet 3.125 mg PO BID #60 tabs 03/02/23 losartan 100 mg tablet 100 mg PO DAILY #30 tabs 03/02/23 Allergies Allergy/AdvReac Type Severity Reaction Status Date / Time ciprofloxacin [From CIPRO] Allergy Severe SWELLING Verified 12/03/23 08:37 IN HANDS, ARMS, LEGS AND FEET pantoprazole AdvReac Intermediate n/v, Verified 12/03/23 08:37 omeprazole okay Patient History Medical History Acute hyponatremia Intertrochanteric fracture of left hip Alcoholism Anoxic brain injury Essential hypertension Cardiomyopathy Paroxysmal atrial fibrillation Alcohol dependence Elevated liver function tests Pulmonary nodule (~07/2019) COPD (chronic obstructive pulmonary disease) Impaired vision GERD (gastroesophageal reflux disease) Hypothyroidism Eczema (2016) Chronic cough (1999) Dislocated elbow (2000) Dislocated shoulder (2001) Fractures (~1963) Cataracts, bilateral (2007) Surgical History History of repair of hiatal hernia Hx of hernia repair (1995) History of nasal surgery (1963) History of cataract removal with insertion of prosthetic lens Family History Father History of arteriosclerotic cardiovascular disease History of emphysema Mother Cancer Grandfather No problems noted. Grandmother Stroke Grandfather No problems noted. Grandmother No problems noted. Social History household members: none Smoking Status: Current every day smoker Tobacco: How many years used: 22 quit status: not considering quitting second hand exposure: No alcohol intake: current substance use type: does not use Smoking Status: Current every day smoker tobacco type: cigarettes alcohol intake frequency: 3 or more drinks per day Alcohol type: beer and hard liquor Substance Use Type: does not use Exam Initial Vital Signs Initial Vital Signs: Vital Signs Temperature 97.8 F 12/03/23 08:25 Pulse Rate 67 12/03/23 08:25 Respiratory Rate 16 12/03/23 08:25 Blood Pressure 142/89 H 12/03/23 08:25 Pulse Oximetry 96 12/03/23 08:25 Oxygen Delivery Method Room Air 12/03/23 08:25 GENERAL: Thin alert 68-year-old male HEENT: Head atraumatic,EOMI, pupils reactive, face symmetric, moist mucous membranes CARDIOVASCULAR: Regular rate and rhythm without murmurs, rubs or gallops. RESPIRATORY: Breath sounds equal bilaterally, no wheezes rales or rhonchi. ABDOMEN: Soft, nontender. Normoactive bowel sounds all 4 quadrants. No guarding or rebound. EXTREMITIES: Normal range of motion, no clubbing or edema. Neurovascularly intact NEUROLOGICAL: Alert and oriented x4.Normal gait and speech. SKIN: Scratches noted on right hip no surrounding erythema or drainage scabbed over Course Orders Ordered: ED Orders 12/03/23 08:36 EKG-12 Lead Stat 12/03/23 08:45 Consult to STRADDLE BUGGY OPERATOR - Rolled Oats Mill Operator Stat 12/03/23 08:55 Ammonia (NH3) Stat CBC Auto Diff [Complete Blood Count AUTO DIFF] Stat CMP [Comprehensive Metabolic Panel] Stat ETOH [Ethanol (ETOH)] Stat Lactate (Lactic Acid) Stat Lipase Stat TSH [Thyroid Stimulating Hormone] Stat Troponin & CK Cardiac Panel Stat 12/03/23 09:11 Consult to STRADDLE BUGGY OPERATOR - Rolled Oats Mill Operator Stat Consult to Physical Therapy Evaluate & Treat 12/03/23 10:23 UA Complete [Urinalysis and Microscopic] Stat Discontinued Medications Folic Acid (Folic Acid 1 Mg Tablet) 1 mg PO NOW ONE Stop: 12/03/23 09:12 Last Admin: 12/03/23 09:33 Dose: 1 mg Documented By: BLANKA Thiamine HCl 200 mg/ Sodium (Chloride) 102 mls @ 408 mls/hr IV NOW ONE Stop: 12/03/23 09:12 Last Infusion: 12/03/23 09:56 Dose: Infused Documented By: Admin: 12/03/23 09:33 Dose: 408 mls/hr Documented By: BLANKA Sodium Chloride (Normal Saline 0.9%) 1,000 mls @ 1,000 mls/hr IV BOLUS ONE Stop: 12/03/23 10:10 Last Infusion: 12/03/23 10:31 Dose: Infused Documented By: Admin: 12/03/23 09:32 Dose: 1,000 mls/hr Documented By: BLANKA Vital Signs Vital signs: Vital Signs - 8 hr 12/03/23 08:25 12/03/23 08:32 12/03/23 09:00 Temperature 97.8 F Pulse Rate 67 63 Respiratory Rate 16 Blood Pressure 142/89 H 152/86 H Pulse Oximetry 96 98 Oxygen Delivery Method Room Air 12/03/23 09:00 12/03/23 09:30 12/03/23 09:30 Temperature Pulse Rate 61 58 L Respiratory Rate 18 18 Blood Pressure 164/85 H Pulse Oximetry 96 97 Oxygen Delivery Method Room Air Room Air 12/03/23 10:00 12/03/23 10:00 12/03/23 10:30 Temperature Pulse Rate 67 73 Respiratory Rate Blood Pressure 178/91 H Pulse Oximetry 95 Oxygen Delivery Method Room Air 12/03/23 11:00 12/03/23 11:00 12/03/23 11:30 Temperature Pulse Rate 57 L Respiratory Rate Blood Pressure 169/83 H 170/109 H Pulse Oximetry 94 Oxygen Delivery Method Room Air 12/03/23 11:30 12/03/23 12:00 12/03/23 12:00 Temperature Pulse Rate 65 63 Respiratory Rate 24 18 Blood Pressure 157/89 H Pulse Oximetry 94 98 Oxygen Delivery Method Room Air Room Air 12/03/23 12:30 12/03/23 12:30 12/03/23 12:36 Temperature Pulse Rate 68 91 H Respiratory Rate 27 H Blood Pressure 183/95 H Pulse Oximetry 94 Oxygen Delivery Method Room Air 12/03/23 12:36 Temperature Pulse Rate Respiratory Rate Blood Pressure 172/101 H Pulse Oximetry Oxygen Delivery Method MDM - Weakness Lab Data 12/03/23 08:55 12/03/23 08:55 Labs: Lab Results 12/03/23 12/03/23 Range/Units 08:55 10:23 WBC 7.1 (4.5-11.0) X10^3/uL RBC 4.98 (4.5-5.9) X10^6/uL Hgb 16.0 (13.5-17.5) g/dL Hct 46.4 (41-53) % MCV 93.2 (80-100) fL MCH 32.1 (26-34) PG MCHC 34.5 (30-36) % RDW 13.8 (11.6-14.8) % Plt Count 305 (150-400) X10^3/uL Neut % (Auto) 62.7 (50-75) % Lymph % (Auto) 22.6 L (25-40) % [place] % (Auto) 10.8 (3-14) % Eos % (Auto) 2.4 (2-4) % Baso % (Auto) 1.5 (0-2) % Neut # (Auto) 4400 (5943-9461) /uL Lymph # (Auto) 1600 (4609-2522) /uL [place] # (Auto) 800 (0-900) /uL Eos # (Auto) 200 (0-450) /uL Baso # (Auto) 100 (0-100) /uL Sodium 137 (137-145) mmol/L Potassium 4.2 (3.4-5.1) mmol/L Chloride 102 (98-107) mmol/L Carbon Dioxide 32 (22-32) mmol/L BUN 11 (9-20) mg/dL Creatinine 0.56 L (0.66-1.25) mg/dL Estimated GFR > 60 (>60) mL/min BUN/Creatinine Ratio 19.6 (6-22) Glucose 105 (80-110) mg/dL Lactate 1.1 (0.7-2.1) mmol/L Calcium 9.0 (8.4-10.2) mg/dL Total Bilirubin 0.9 (0.2-1.3) mg/dL AST 23 (17-59) IU/L ALT 12 (<50) IU/L Alkaline Phosphatase 103 (38-126) U/L Ammonia < 9 L (9-30) umol/L Total Creatine Kinase 34 L (55-170) U/L Troponin I < 0.012 (0.01-0.034) ng/mL Total Protein 7.7 (6.3-8.2) g/dL Albumin 3.8 (3.5-5.0) g/dL Globulin 3.9 (1.7-4.1) g/dL Albumin/Globulin Ratio 1.0 (1.0-2.8) Lipase 54 (23-300) U/L TSH 3.63 D (0.47-4.68) uIU/mL Urine Color Yellow Urine Appearance Clear Urine pH 7.0 (4.5-8.0) Ur Specific [place] 1.010 (1.000-1.035) Urine Protein Negative (Negative) Urine Glucose (UA) Negative (Negative) g/dL Urine Ketones Negative (NEGATIVE) Urine Occult Blood Negative (Negative) Urine Nitrate Negative (Negative) Urine Bilirubin Negative (NEGATIVE) Urine Urobilinogen 1.0 (0.2) E.U./dL Ur Leukocyte Esterase Negative (NEGATIVE) Urine RBC 1-5/hpf (0-5/HPF) Urine WBC None seen (0-5/HPF) Ur Squamous Epith Cells None seen (0-5/HPF) Amorphous Sediment 2+ Urine Bacteria None seen (None) Ur Culture Indicated? Cult not indicated Vol Urine Centrifuged 10ml (spun) Ethyl Alcohol < 10 ( - 10) mg/dL ECG Data Attestation: I personally reviewed and interpreted this ECG as follows: Interpretation: Sinus rhythm rate 63 ME interval 156 QRS [address] changes or T-wave inversions MDM Narrative Medical decision making narrative: [facility] CC: Weakness panic Complicating co-morbidities: Alcohol abuse, hypertension hypothyroid Corroborating data: [ ] Data collected from: EMS Medical records reviewed: Multiple visits Differential considered: [ ] Exam documented above, pertinent findings include: Weak thin 68-year-old male, but no focal deficits able to maintain a normal conversation. He apologizes for being here. Lab Test results independently reviewed as above. Pertinent findings: WBC 7.1, hemoglobin 16.0 hematocrit, 46.4, sodium 137, previously 128, potassium 4.2, chloride 102, carbon dioxide 32, BUN 11, creatinine 0.5, negative troponin, TSH 3.6, ammonia undetectable Independently reviewed EKG as above: No ischemia same as above Imaging studies independently reviewed: None indicated at this time Consultations: Social work and physical therapy Patient is set up for home health services PT note states recommends 24/7 care or long-term care facility Treatments: Thiamine folic acid and IV fluids Re-evaluations: He is offered food multiple times but says that he does not want to eat. Discussion: Patient having frequent EMS calls frequent ED visits he is about to be evicted from his home but is not yet. It is clear he is failure to thrive unable to care for himself but still to be mentating okay. I offered to help him stay in the hospital however he wants to go home. This seems to be his decision multiple times. BLS transport home Discharge Plan Departure Patient Disposition: Home Clinical Impression: Generalized weakness Instructions: DI for Muscle Weakness Activity Restrictions/Additional Instructions: *You have been diagnosed with weakness *Continue to take medications as directed *Follow up with your primary care provider in 2-3 days or call [phone] *Return to ER if you should have any new, worsening or concerning symptoms Prescriptions: No Action levothyroxine [Synthroid] 75 mcg tablet 75 mcg PO QDAY Qty: 90 3RF trazodone 50 mg tablet 50 mg PO BEDTIME Patient Comments: TAKE ONE TABLET BY MOUTH NIGHTLY AT BEDTIME carvedilol 3.125 mg tablet 3.125 mg PO BID Qty: 60 0RF Rx Instructions: must administer with a meal/food losartan 100 mg tablet 100 mg PO DAILY Qty: 30 0RF losartan 50 mg tablet 50 mg PO DAILY Referrals: Yasmine Gibbs RN [Primary Care Provider] - Stand Alone Forms: Patient Portal/API
[2023-12-03 09:10] LABS: Add Manual Diff / Slide Review NO; Basophils Absolute Auto 100 /uL (0-100); Basophils Percent Auto 1.5 % (0-2); Eosinophils Absolute Auto 200 /uL (0-450); Eosinophils Percent Auto 2.4 % (2-4); Hematocrit 46.4 % (41-53); Lymphocytes Absolute Auto 1600 /uL (1100-4500); Lymphocytes Percent Auto 22.6 % (25-40); Mean Corpuscular HGB Conc 34.5 % (30-36); Mean Corpuscular Hemoglobin 32.1 PG (26-34); Mean Corpuscular Volume 93.2 fL (80-100); Monocytes Absolute Auto 800 /uL (0-900); Monocytes Percent Auto 10.8 % (3-14); Neutrophils Absolute Auto 4400 /uL (1500-7000); Neutrophils Percent Auto 62.7 % (50-75); Platelet Count 305 X10^3/uL (150-400); Red Blood Cell Count 4.98 X10^6/uL (4.5-5.9); Red Cell Distribution Width 13.8 % (11.6-14.8); White Blood Cell Count 7.1 X10^3/uL (4.5-11.0)
[2023-12-03 09:22] LABS: Creatine Kinase 34 U/L (55-170)
[2023-12-03 09:23] LABS: Alanine Aminotransferase 12 IU/L (<50); Albumin 3.8 g/dL (3.5-5.0); Alkaline Phosphatase 103 U/L (38-126); Ammonia (NH3) < 9 umol/L (9-30); Aspartate Aminotransferase 23 IU/L (17-59); BUN Creatinine Ratio 19.6 (6-22); Bilirubin Total 0.9 mg/dL (0.2-1.3); Blood Urea Nitrogen 11 mg/dL (9-20); Carbon Dioxide 32 mmol/L (22-32); Chloride 102 mmol/L (98-107); Estimated Glomerular Filt Rate > 60 mL/min (>60); Ethanol (ETOH) < 10 mg/dL; Globulin 3.9 g/dL (1.7-4.1); Glucose 105 mg/dL (80-110); HEMOLYSIS < 15 (0-50); Lactate (Lactic Acid) 1.1 mmol/L (0.7-2.1); Lipase 54 U/L (23-300); Potassium 4.2 mmol/L (3.4-5.1); Sodium 137 mmol/L (137-145); Total Protein 7.7 g/dL (6.3-8.2)
[2023-12-03] MEDS: SODIUM CHLORIDE 0.9% 1,000 ML 1000 ML IV (09:32)
[2023-12-03 09:33] LABS: Troponin I < 0.012 ng/mL (0.01-0.034)
[2023-12-03] MEDS: FOLIC ACID 1 MG TABLET PO (09:33)
[2023-12-03] MEDS: THIAMINE 200 MG in SODIUM CHLORIDE 0.9% 100 ML 408 MG IV (09:33)
--- NOTE | 2023-12-03 09:44 | PC.NURSE ---
PT states he has had difficulty pooping, but I did poop today and it all came out okay. Pt denies having specific pain, but reports it hurts allover because of my situation, referring to his housing eviction. Pt repeatedly states You guys arent going to find anything, you'll send me home and nothing will change. I just want to fall asleep and wake up tomorrow morning. He has a bag of belongings in a hospital bag from a previous visit that pt reports all my identification is in it, and $1200. He refused putting his belongings in the hospital safe while stating It would be too complicated to count, I just want to hang onto it while I'm here. Pt is clutching his bag underneath of his gown.
[2023-12-03 10:09] LABS: Thyroid Stimulating Hormone 3.63 uIU/mL (0.47-4.68)
--- NOTE | 2023-12-03 10:25 | PT.IIE ---
Surgical History (Last Reviewed 12/03/23 @ 09:13 by Mimi Brown DO) History of cataract removal with insertion of prosthetic lens History of nasal surgery (1963) History of repair of hiatal hernia Hx of hernia repair (1995) Medical History (Last Reviewed 12/03/23 @ 09:13 by Mimi Brown DO) Acute hyponatremia Alcohol dependence Alcoholism Anoxic brain injury Cardiomyopathy Cataracts, bilateral (2007) Chronic cough (1999) COPD (chronic obstructive pulmonary disease) Dislocated elbow (2000) Dislocated shoulder (2001) Eczema (2017) Elevated liver function tests Essential hypertension Fractures (~1963) GERD (gastroesophageal reflux disease) Hypothyroidism Impaired vision Intertrochanteric fracture of left hip Paroxysmal atrial fibrillation Pulmonary nodule (~07/2019) Physical Therapy Inpatient Evaluation/Re-Eval M1 PT/OT-IP Prior Functional Status Start: 12/03/23 11:37 Freq: Status: Active Protocol: Document 12/03/23 10:25 AB (Rec: 12/03/23 11:55 AB [id number]) Medical Review Prior Functional Status Medical History Reviewed Yes Communication able to make needs known Mobility and Gait pt stated that he is modified independent with all mobilities and ambulation using a 4WW; pt has meals on wheels Social History Household Members none Living Arrangements Apartment/Condo Number of Stairs To Enter/Railing? pt lives in a 2nd level apartment with access to an elevator to get into his apartment Home Environment Standard Height Toilet,Tub/ Shower,Elevator Home Equipment Four Wheel Walker,Shower Seat with Backrest,Hand Held Shower ,Grab Bars Near Toilet,Grab Bars In Shower M2 PT-IP Current Condition Start: 12/03/23 11:37 Freq: Status: Active Protocol: Document 12/03/23 10:25 AB (Rec: 12/03/23 11:55 AB [id number]) Physical Therapy Current Condition Current Condition Evaluation Date 12/03/23 Treatment Diagnosis failure to thrive; difficulty in walking Onset Date 12/03/23 M3 PT-IP Subjective Start: 12/03/23 11:37 Freq: Status: Active Protocol: Document 12/03/23 10:25 AB (Rec: 12/03/23 11:55 AB [id number]) Subjective Physical Therapy Visit Type Type Initial Evaluation Visit Start Time 10:25 Visit Stop Time 11:05 Number of ORDNANCE TRUCK INSTALLATION MECHANIC Visits 0 Physical Therapy Visit Comments Patient Comments agreeable to do PT M4 PT-IP Mobility and Gait Start: 12/03/23 11:37 Freq: Status: Active Protocol: Document 12/03/23 10:25 AB (Rec: 12/03/23 11:55 AB [id number]) PT-Bed Mobility Assessment Supine to Sit Supine to Sit Standby Assistance Sit to Supine Sit to Supine Standby Assistance PT-Transfer Assessment Sit to and From Stand Sit to and from Stand Standby Assistance,1 Person Assistance,Use of Upper Extremities Equipment Transfer Assistive Device Gait Belt,Front Wheeled Walker Orthotic/Prosthetic Devices or Brace: No Comments Mobility Comments pt supine in bed. agreed to do PT. obtained PLOF and home set up from pt. pt completed supine to sit SBA. able to sit on EOB SBA. pt requesting ot use the toilet. pt completed sit to stand SBA. NAC in room and assisted pt. pt used FWW for support during standing. pt agreed to ambulate and completed ~ 30 ft in room using FWW SBA. presents with unsteady gait but without LOB. cued pt for safety. pt stated that he has been walking the same way as before. pt is impulsive and tends to direct his own care. pt sat back on EOB and completed sit to supine SBA. positioned pt in bed. call light and table placed within reach. informed nurse regarding pt's mobility level. Gait Assessment Gait Gait Assistance Required: Standby Assistance Distance (Feet) 30 Able to Maintain Weight Bearing Status Yes During Gait Assistive Devices Assistive Device Gait Belt,Front Wheeled Walker Orthotic/Prosthetic Devices or Brace: No Gait Deviations General Gait Pattern Ataxic,Decreased Stride Length ,Decreased Feet Clearance Factors Limiting Gait Function Factors Limiting Gait Function Decreased Activity Tolerance, Decreased Strength,Poor Balance,Poor Safety Awareness PT-Balance Assessment Sitting Balance and Reactions Static Sitting Balance Ability Good Dynamic Sitting Balance Ability Good Standing Balance and Reactions Static Standing Balance Ability Fair Dynamic Standing Balance Ability Fair Device Used FWW M5 PT-IP Objective Assessments Start: 12/03/23 11:37 Freq: Status: Active Protocol: Document 12/03/23 10:25 AB (Rec: 12/03/23 11:55 AB [id number]) Orientation Orientation/Cognition Level of Alertness Alert Safety Awareness Decreased Safety Awareness Memory Description Short Term Impaired Gross Range of Motion Lower Extremity ROM Assessment Within Functional Limits Strength Lower Extremity Strength Hip 4-/5 Knee 4-/5 Muscle Tone Muscle Tone WNL Yes M6 PT-IP Treatment Start: 12/03/23 11:37 Freq: Status: Active Protocol: Document 12/03/23 10:25 AB (Rec: 12/03/23 11:55 AB [id number]) Physical Therapy Treatment Education Education Provided Safety M7 PT-IP Assessment and Plan Start: 12/03/23 11:37 Freq: Status: Active Protocol: Document 12/03/23 10:25 AB (Rec: 12/03/23 11:55 AB [id number]) PT Summary Assessment and Plan Potential Rehabilitation Potential Fair Status of Condition at Evaluation Stable Summary Impairments Pain,ROM,Strength,Balance, Coordination,Sensation,Tone, Cognition,Bed Mobility, Transfers,Gait,Activity Tolerance Assessment Summary pt is a 68 y/o M who presented to the ED after several calls were made to EMS for assistance. PT eval order received from ED doctor for mobility assessment and d/c plan. pt requiring SBA with mobility using FWW. pt with decrease safety awareness and tends to direct his own care. Pt lives alone and needs assistance at home due to his decrease safety awareness. Pt is more of a LTC candidate. pt is a PLOF and no further PT intervention indicated at this time. Frequency of Treatment Frequency Of Treatment Discharge Recommendations To Nursing Amount of Assist Needed Standby Assistance Discharge Recommendations Other Discharge Recommendations home 21/03 assist vs LTC Transportation Needs at Discharge Private Vehicle
[2023-12-03 11:15] LABS: Appearance Urine UA CLEAR; Bilirubin Urine UA NEGATIVE (NEGATIVE); Color Urine UA YELLOW; Glucose Urine UA NEGATIVE (Negative); Ketones Urine UA NEGATIVE (NEGATIVE); Leukocyte Esterase Urine UA NEGATIVE (NEGATIVE); Nitrite Urine UA NEGATIVE (Negative); Occult Blood Urine UA NEGATIVE (Negative); Protein Urine UA NEGATIVE (Negative)
[2023-12-03 11:41] LABS: RBC Urine 1-5/HPF (0-5/HPF); Urine Volume 10mL (spun)
[2023-12-03 11:42] LABS: Amorphous Sediment Urine 2+; Bacteria Urine None Seen; Culture Indicated Urine Cult Not Indicated; Squamous Epithelial Cell Urine None Seen (0-5/HPF); WBC Urine None Seen (0-5/HPF)
--- NOTE | 2023-12-03 12:14 | CM.SWNOTE ---
ED HEALTH SERVICES RN Note Pt is a 68 y/o male who presents to the ED for weakness and confusion. Pt reports having frequent call throughout the night, frequent falls at home per ED triage Assessment. Pt has been to the ED 3 other times for similar presentation over the past month. Pt has supports in place including his [facility] Electron Gun Assembler November (ph# [phone], ext [phone]), Community Space Physicist Gregory Sorensen, as well as current services through [facility]. HEALTH SERVICES RN callled Gregory Sorensen to leave a a message requesting a check in on the pt in the upcoming week. HEALTH SERVICES RN also called [facility] pillowcase turner November to update her on pt's status and request a check in if possible. HEALTH SERVICES RN left a voicemail. HEALTH SERVICES RN called [facility] and confirmed that the pt is still receiving active services through them. HEALTH SERVICES RN enters the room to meet w/ pt. Pt states it was a mistake coming here I just want to go home. HEALTH SERVICES RN acknowledged this concern and linked it to his similar presentation two weeks ago when this HEALTH SERVICES RN met w/ the pt. Pt confirmed that he still has people coming to check in on him from [facility]. Pt acknowledged anxiety around his upcoming eviction as a concern of his. HEALTH SERVICES RN helped pt explore options to manage his anxiety. PT declined any MH referrals or resources. HEALTH SERVICES RN attempted top help pt identify coping skills. Pt acknowledges that he usually watches TV and can tell the time of the day base don what is on TV. HEALTH SERVICES RN discussed options such as puzzles or reading as additional options to cope. Pt's memory appears limited. Pt frequently responded I don't know to questions surrounding the last time he has seen service providers and what things have been helpful to him in the past in terms of both services and stress management. Pt denies ETOH use in the recent weeks. I haven't been able to get or drink any whiskey. Pt reports that he has been drinking ensure frequently and enjoy this for his nutrition. Pt's preference is to go home w/ the support of S fo transportation. Plan: Pt to d/c home upon medical clearance w/ on going services through [facility], community cleaner window, and [facility] González Alvarado MSW, Marita
== END 2023-12-03 13:00 | disposition home or self-care (01) ==
PROVIDERS: Emergency Provider Emergency Medicine; PCP Nurse Practitioner Family
DX: M62.81 Muscle weakness (generalized) (principal); I10 Essential (primary) hypertension; R07.9 Chest pain, unspecified
CPT/HCPCS: 36415; 51798; 80053; 80320; 81001; 82140; 82550; 83605; 83690; 84443; 84484; 85025; 93005; 96360; 97161; 99284

== ENCOUNTER 2023-12-09 16:50 | Observation (INO) | payer MEDICARE, MEDICAID, SELFPAY ==
[2020-02-23 11:45] VITALS: PULSE 67; RESP 20; O2SAT 100
[2023-12-09] VITALS (15 sets, daily range): BP systolic 150–176; BP diastolic 72–90; PULSE 61–111; RESP 13–24; TEMP 36.5; O2SAT 97–100
--- NOTE | 2023-12-09 17:09 | PC.NURSE ---
Pt presents with bag of belongings in his lap, he refuses on setting them down or putting them in the safe. Pt repeatedly yells I dont want to be here! I dont want to be here!... Don't I have any rights? Get me home. Get me home!. Pt updated on process and call light within reach.
--- NOTE | 2023-12-09 18:05 | PC.NURSE ---
Pt requested to get up and walk around. Pt stood at bedside and used urinal for sample. Pt then ambulated around his room multiple times using a walker. Pt denied dizziness, lightheaded, SOB, weakness, pain with ambulation. Pt positioned back in bed.
--- NOTE | 2023-12-09 18:10 | ED_ITS ---
HPI - Psych <Hemalatha Peace MD - Last Filed: 12/11/23 18:36> General Chief Complaint: Psychiatric Symptoms Stated Complaint: RUTHIE Time Seen by Provider: 12/09/23 16:54 Source: patient and EMS Mode of arrival: EMS History of Present Illness HPI Narrative: 68-year-old male very well known to this emergency department presents by EMS from his place of residence for mental health evaluation. Patient's home health care staff checked on him today and found him to be lying on the ground in foul living conditions. Patient has not been eating or drinking very well at home and the apartment is covered in urine and feces. Patient has [employer]D case open. Patient states he does not want to be here on arrival. He has extremely limited understanding of his situation and no insight to his condition. Related Data Home Medications Medication Instructions Recorded Confirmed budesonide 160 mcg-glycopyr 9 1 inh inhalation 12/10/23 mcg-formot 4.8 mcg/actuation HFA inhaler (Qomutyphere) carvedilol 3.125 mg tablet 3.125 mg PO BID 12/10/23 12/10/23 fluticasone fur. 200 mcg-umeclid 1 ea inhalation DAILY 12/10/23 12/10/23 62.5 mcg-vilant 25 mcg inhalat.powder (Trelegy Ellipta) levothyroxine 75 mcg tablet 75 mcg PO QAM 12/10/23 12/10/23 losartan 50 mg tablet 50 mg PO DAILY 12/10/23 12/10/23 losartan 50 mg tablet 50 mg PO DAILY 12/10/23 12/10/23 trazodone 100 mg tablet 200 mg PO ONCE PM PRN Agitation 12/10/23 12/10/23 Allergies Allergy/AdvReac Type Severity Reaction Status Date / Time ciprofloxacin [From CIPRO] Allergy Severe SWELLING Verified 12/03/23 08:37 IN HANDS, ARMS, LEGS AND FEET pantoprazole AdvReac Intermediate n/v, Verified 12/03/23 08:37 omeprazole okay Review of Systems <Hemalatha Peace MD - Last Filed: 12/11/23 18:36> Review of Systems Narrative: Per HPI Patient History <Hemalatha Peace MD - Last Filed: 12/11/23 18:36> Medical History Acute hyponatremia Intertrochanteric fracture of left hip Alcoholism Anoxic brain injury Essential hypertension Cardiomyopathy Paroxysmal atrial fibrillation Alcohol dependence Elevated liver function tests Pulmonary nodule (~07/2019) COPD (chronic obstructive pulmonary disease) Impaired vision GERD (gastroesophageal reflux disease) Hypothyroidism Eczema (2017) Chronic cough (1999) Dislocated elbow (2000) Dislocated shoulder (2001) Fractures (~1963) Cataracts, bilateral (2007) Surgical History History of repair of hiatal hernia Hx of hernia repair (1995) History of nasal surgery (1963) History of cataract removal with insertion of prosthetic lens Family History Father History of arteriosclerotic cardiovascular disease History of emphysema Mother Cancer Grandfather No problems noted. Grandmother Stroke Grandfather No problems noted. Grandmother No problems noted. Social History household members: none Smoking Status: Former smoker Tobacco: How many years used: 22 quit status: not considering quitting second hand exposure: No alcohol intake: former substance use type: does not use Smoking Status: Current every day smoker tobacco type: cigarettes alcohol intake frequency: 3 or more drinks per day Alcohol type: beer and hard liquor Substance Use Type: does not use Exam <Hemalatha Peace MD - Last Filed: 12/11/23 18:36> Initial Vital Signs Initial Vital Signs: Vital Signs Pulse Rate 64 12/09/23 16:56 Pulse Oximetry 99 12/09/23 16:56 Const: Awake, alert, disheveled, appears chronically unwell Cardiac: regular rate, regular rhythm RESP: unlabored, clear bilaterally, no wheezing MSK: Atraumatic, full range of motion, pulses equal Skin: Warm, Dry, poor skin turgor Neuro: AO x1, CN II-XII grossly intact, moves all extremities, memory extremely poor <Hemalatha Hand DO - Last Filed: 12/11/23 11:12> Initial Vital Signs Initial Vital Signs: Vital Signs Pulse Rate 64 12/09/23 16:56 Pulse Oximetry 99 12/09/23 16:56 Course <Hemalatha Peace MD - Last Filed: 12/11/23 18:36> Orders Ordered: Acetaminophen (Acetaminophen 325 Mg Tablet) 650 mg PO Q6H PRN PRN Reason: Fever/Mild Pain (1-3) Last Admin: 12/11/23 14:29 Dose: 650 mg Documented By: BARTOLO Albuterol (Albuterol 2.5 Mg/3 Ml Neb (Adult)) 2.5 mg INH [id number] PRN PRN Reason: Shortness Of Breath Albuterol/Ipratropium (Albuterol/Ipratropium 3 Ml Ampul) 3 ml INH RTBID [facility] Budesonide (Budesonide 0.5 Mg/2 Ml Neb) 0.5 mg INH RTBID [facility] Last Admin: 12/11/23 08:53 Dose: 0.5 mg Documented By: Admin: 12/10/23 21:25 Dose: 0.5 mg Documented By: Carvedilol (Carvedilol 3.125 Mg Tablet) 3.125 mg PO BID [facility] Last Admin: 12/11/23 10:43 Dose: 3.125 mg Documented By: BARTOLO Docusate Sodium (Docusate 100 Mg Capsule) 100 mg PO BID [facility] Enoxaparin Sodium (Enoxaparin 40 Mg/0.4 Ml Syringe) 40 mg SUBCUT DAILY [facility] Naloxone HCl (Naloxone 0.4 Mg/Ml Vial) 0.2 mg IV Q2MIN PRN PRN Reason: Opiate Reversal Ondansetron HCl (Ondansetron 4 Mg/2 Ml Inj) 4 mg IV Q8HR PRN PRN Reason: Nausea And Vomiting Quetiapine Fumarate (Quetiapine 25 Mg Tablet) 12.5 mg PO BEDTIME [facility] Sennosides (Sennosides 8.6 Mg Tablet) 8.6 mg PO BEDTIME [facility] Discontinued Medications Levothyroxine Sodium (Levothyroxine 75 Mcg Tablet) 75 mcg PO DAILY@0600 [facility] Last Admin: 12/11/23 06:45 Dose: 75 mcg Documented By: GREG Losartan Potassium (Losartan 50 Mg Tablet) 50 mg PO DAILY [facility] Last Admin: 12/11/23 09:12 Dose: 50 mg Documented By: RB Naloxone HCl (Naloxone 0.4 Mg/Ml Vial) 0.2 mg IV Q2MIN PRN PRN Reason: Opiate Reversal Trazodone HCl (Trazodone 50 Mg Tablet) 200 mg PO BEDTIME [facility] Trazodone HCl (Trazodone 50 Mg Tablet) 200 mg PO BEDTIME [facility] Last Admin: 12/10/23 22:32 Dose: Not Given Documented By: Admin: 12/10/23 01:25 Dose: 200 mg Documented By: AB Trazodone HCl (Trazodone 50 Mg Tablet) 200 mg PO BEDTIME [facility] Last Admin: 12/10/23 22:17 Dose: 200 mg Documented By: AB Vital Signs Vital signs: Vital Signs - 8 hr 12/11/23 05:09 12/11/23 05:10 Pulse Rate 65 Respiratory Rate 18 Blood Pressure 120/77 Blood Pressure [Left Arm] 120/77 Pulse Oximetry 95 Oxygen Delivery Method Room Air <Hemalatha Hand, - Last Filed: 12/11/23 11:12> Orders Ordered: Acetaminophen (Acetaminophen 325 Mg Tablet) 650 mg PO Q6H PRN PRN Reason: Fever/Mild Pain (1-3) Last Admin: 12/11/23 14:29 Dose: 650 mg Documented By: BARTOLO Albuterol (Albuterol 2.5 Mg/3 Ml Neb (Adult)) 2.5 mg INH [id number] PRN PRN Reason: Shortness Of Breath Albuterol/Ipratropium (Albuterol/Ipratropium 3 Ml Ampul) 3 ml INH RTBID [facility] Budesonide (Budesonide 0.5 Mg/2 Ml Neb) 0.5 mg INH RTBID [facility] Last Admin: 12/11/23 08:53 Dose: 0.5 mg Documented By: Admin: 12/10/23 21:25 Dose: 0.5 mg Documented By: MR Carvedilol (Carvedilol 3.125 Mg Tablet) 3.125 mg PO BID [facility] Last Admin: 12/11/23 10:43 Dose: 3.125 mg Documented By: BARTOLO Docusate Sodium (Docusate 100 Mg Capsule) 100 mg PO BID [facility] Enoxaparin Sodium (Enoxaparin 40 Mg/0.4 Ml Syringe) 40 mg SUBCUT DAILY [facility] Naloxone HCl (Naloxone 0.4 Mg/Ml Vial) 0.2 mg IV Q2MIN PRN PRN Reason: Opiate Reversal Ondansetron HCl (Ondansetron 4 Mg/2 Ml Inj) 4 mg IV Q8HR PRN PRN Reason: Nausea And Vomiting Quetiapine Fumarate (Quetiapine 25 Mg Tablet) 12.5 mg PO BEDTIME [facility] Sennosides (Sennosides 8.6 Mg Tablet) 8.6 mg PO BEDTIME [facility] Discontinued Medications Levothyroxine Sodium (Levothyroxine 75 Mcg Tablet) 75 mcg PO DAILY@0600 [facility] Last Admin: 12/11/23 06:45 Dose: 75 mcg Documented By: GREG Losartan Potassium (Losartan 50 Mg Tablet) 50 mg PO DAILY [facility] Last Admin: 12/11/23 09:12 Dose: 50 mg Documented By: RB Naloxone HCl (Naloxone 0.4 Mg/Ml Vial) 0.2 mg IV Q2MIN PRN PRN Reason: Opiate Reversal Trazodone HCl (Trazodone 50 Mg Tablet) 200 mg PO BEDTIME [facility] Trazodone HCl (Trazodone 50 Mg Tablet) 200 mg PO BEDTIME [facility] Last Admin: 12/10/23 22:32 Dose: Not Given Documented By: Admin: 12/10/23 01:25 Dose: 200 mg Documented By: AB Trazodone HCl (Trazodone 50 Mg Tablet) 200 mg PO BEDTIME [facility] Last Admin: 12/10/23 22:17 Dose: 200 mg Documented By: AB Vital Signs Vital signs: Vital Signs - 8 hr 12/11/23 05:09 12/11/23 05:10 Pulse Rate 65 Respiratory Rate 18 Blood Pressure 120/77 Blood Pressure [Left Arm] 120/77 Pulse Oximetry 95 Oxygen Delivery Method Room Air MDM - Psych <Hemalatha Peace MD - Last Filed: 12/11/23 18:36> Lab Data 12/09/23 18:15 12/09/23 18:15 Labs: Lab Results 12/09/23 12/09/23 12/09/23 Range/Units 17:47 17:47 18:15 WBC 5.6 (4.5-11.0) X10^3/uL RBC 4.55 (4.5-5.9) X10^6/uL Hgb 14.6 (13.5-17.5) g/dL Hct 42.4 (41-53) % MCV 93.2 (80-100) fL MCH 32.0 (26-34) PG MCHC 34.3 (30-36) % RDW 13.6 (11.6-14.8) % Plt Count 266 (150-400) X10^3/uL Neut % (Auto) 53.8 (50-75) % Lymph % (Auto) 25.7 (25-40) % [place] % (Auto) 14.4 H (3-14) % Eos % (Auto) 3.9 (2-4) % Baso % (Auto) 2.2 H (0-2) % Neut # (Auto) 3000 (0307-6193) /uL Lymph # (Auto) 1400 (7666-5998) /uL [place] # (Auto) 800 (0-900) /uL Eos # (Auto) 200 (0-450) /uL Baso # (Auto) 100 (0-100) /uL Sodium 134 L (137-145) mmol/L Potassium 4.1 (3.4-5.1) mmol/L Chloride 102 (98-107) mmol/L Carbon Dioxide 31 (22-32) mmol/L BUN 15 (9-20) mg/dL Creatinine 0.51 L (0.66-1.25) mg/dL Estimated GFR > 60 (>60) mL/min BUN/Creatinine Ratio 29.4 H (6-22) Glucose 93 (80-110) mg/dL Calcium 8.7 (8.4-10.2) mg/dL Total Bilirubin 0.6 (0.2-1.3) mg/dL AST 30 (17-59) IU/L ALT 19 (<50) IU/L Alkaline Phosphatase 106 (38-126) U/L Total Protein 7.3 (6.3-8.2) g/dL Albumin 3.5 (3.5-5.0) g/dL Globulin 3.8 (1.7-4.1) g/dL Albumin/Globulin Ratio 0.9 L (1.0-2.8) TSH 4.28 (0.47-4.68) uIU/mL Urine Color Yellow Urine Appearance Clear Urine pH 6.5 Normal (4.5-8.0) Ur Specific [place] 1.025 (1.000-1.035) Urine Protein Negative (Negative) Urine Glucose (UA) Negative (Negative) g/dL Urine Ketones Negative (NEGATIVE) Urine Occult Blood Negative (Negative) Urine Nitrate Negative (Negative) Urine Bilirubin Negative (NEGATIVE) Urine Urobilinogen 1.0 (0.2) E.U./dL Ur Leukocyte Esterase Negative (NEGATIVE) Urine RBC 0-1/hpf (0-5/HPF) Urine WBC None seen (0-5/HPF) Ur Squamous Epith Cells None seen (0-5/HPF) Calcium Oxalate Crystal Occasional H Urine Bacteria None seen (None) Ur Culture Indicated? Cult not indicated Vol Urine Centrifuged Low vol <10ml unspun A U Opiates 300ng/mL cut Negative (Negative) Ur Oxycodone Screen Negative (Negative) Urine Methadone Screen Negative (Negative) Ur Barbiturates Screen Negative (Negative) U Tricyclic Antidepress Negative (Negative) Ur Phencyclidine Scrn Negative (Negative) Ur Amphetamines Screen Negative (Negative) U Methamphetamines Scrn Negative (Negative) Ur MDMA Scrn (Ecstasy) Negative (Negative) U Benzodiazepines Scrn Negative (Negative) Urine Cocaine Screen Negative (Negative) U Marijuana (THC) Screen Negative (Negative) Urine Specific [place] Normal (Normal) Ethyl Alcohol < 10 ( - 10) mg/dL Ur Creatinine Normal (Normal) Urine Dip Bedside Urine Glucose Negative Bedside Urine Bilirubin - Negative Bedside Urine Ketone - Negative Urine Specific [place] 1.025 Bedside Urine Occult Blood - Negative Bedside Urine pH 6.0 Bedside Urine Protein - Negative Bedside Urine Urobilinogen - Negative Bedside Urine Nitrite - Negative Bedside Urine Leukocytes - Negative Esterase MDM Narrative Medical decision making narrative: Patient presenting due to concerns that he was unable to care for himself. Multiple visits in the last 30 days for similar presentation. Patient's home is frequently reported to be filthy with urine and feces everywhere and patient in state of confusion. Patient does not want to be in the emergency department, however he can not answer basic orientation questions and is obviously confused with no insight into his situation. 0700 - care of patient signed out to daytime physician. Pending OT eval. <Hemalatha Hand DO - Last Filed: 12/11/23 11:12> Lab Data Labs: Lab Results 12/09/23 12/09/23 12/09/23 Range/Units 17:47 17:47 18:15 WBC 5.6 (4.5-11.0) X10^3/uL RBC 4.55 (4.5-5.9) X10^6/uL Hgb 14.6 (13.5-17.5) g/dL Hct 42.4 (41-53) % MCV 93.2 (80-100) fL MCH 32.0 (26-34) PG MCHC 34.3 (30-36) % RDW 13.6 (11.6-14.8) % Plt Count 266 (150-400) X10^3/uL Neut % (Auto) 53.8 (50-75) % Lymph % (Auto) 25.7 (25-40) % [place] % (Auto) 14.4 H (3-14) % Eos % (Auto) 3.9 (2-4) % Baso % (Auto) 2.2 H (0-2) % Neut # (Auto) 3000 (5080-5299) /uL Lymph # (Auto) 1400 (4203-5914) /uL [place] # (Auto) 800 (0-900) /uL Eos # (Auto) 200 (0-450) /uL Baso # (Auto) 100 (0-100) /uL Sodium 134 L (137-145) mmol/L Potassium 4.1 (3.4-5.1) mmol/L Chloride 102 (98-107) mmol/L Carbon Dioxide 31 (22-32) mmol/L BUN 15 (9-20) mg/dL Creatinine 0.51 L (0.66-1.25) mg/dL Estimated GFR > 60 (>60) mL/min BUN/Creatinine Ratio 29.4 H (6-22) Glucose 93 (80-110) mg/dL Calcium 8.7 (8.4-10.2) mg/dL Total Bilirubin 0.6 (0.2-1.3) mg/dL AST 30 (17-59) IU/L ALT 19 (<50) IU/L Alkaline Phosphatase 106 (38-126) U/L Total Protein 7.3 (6.3-8.2) g/dL Albumin 3.5 (3.5-5.0) g/dL Globulin 3.8 (1.7-4.1) g/dL Albumin/Globulin Ratio 0.9 L (1.0-2.8) TSH 4.28 (0.47-4.68) uIU/mL Urine Color Yellow Urine Appearance Clear Urine pH 6.5 Normal (4.5-8.0) Ur Specific [place] 1.025 (1.000-1.035) Urine Protein Negative (Negative) Urine Glucose (UA) Negative (Negative) g/dL Urine Ketones Negative (NEGATIVE) Urine Occult Blood Negative (Negative) Urine Nitrate Negative (Negative) Urine Bilirubin Negative (NEGATIVE) Urine Urobilinogen 1.0 (0.2) E.U./dL Ur Leukocyte Esterase Negative (NEGATIVE) Urine RBC 0-1/hpf (0-5/HPF) Urine WBC None seen (0-5/HPF) Ur Squamous Epith Cells None seen (0-5/HPF) Calcium Oxalate Crystal Occasional H Urine Bacteria None seen (None) Ur Culture Indicated? Cult not indicated Vol Urine Centrifuged Low vol <10ml unspun A U Opiates 300ng/mL cut Negative (Negative) Ur Oxycodone Screen Negative (Negative) Urine Methadone Screen Negative (Negative) Ur Barbiturates Screen Negative (Negative) U Tricyclic Antidepress Negative (Negative) Ur Phencyclidine Scrn Negative (Negative) Ur Amphetamines Screen Negative (Negative) U Methamphetamines Scrn Negative (Negative) Ur MDMA Scrn (Ecstasy) Negative (Negative) U Benzodiazepines Scrn Negative (Negative) Urine Cocaine Screen Negative (Negative) U Marijuana (THC) Screen Negative (Negative) Urine Specific [place] Normal (Normal) Ethyl Alcohol < 10 ( - 10) mg/dL Ur Creatinine Normal (Normal) Urine Dip Bedside Urine Glucose Negative Bedside Urine Bilirubin - Negative Bedside Urine Ketone - Negative Urine Specific [place] 1.025 Bedside Urine Occult Blood - Negative Bedside Urine pH 6.0 Bedside Urine Protein - Negative Bedside Urine Urobilinogen - Negative Bedside Urine Nitrite - Negative Bedside Urine Leukocytes - Negative Esterase Imaging Data CT scan - head: Radiologist's Impression: [place] [address] CT Scan Report Signed Patient: Shmuel Simpson I MR#: [id number] : 1955 Acct:[id number] Age/Sex: 68 / M Date of Service: 12/10/23 Loc: ED Accession Number: [id number] Procedure: CT head/brain wo con Ordering Provider: Hemalatha Hand D.O. PROCEDURE: CT HEAD/BRAIN WO CON INDICATIONS: weakness, falls, TECHNIQUE: Noncontrast 4.5 mm thick angled axial sections acquired from the foramen magnum to the vertex, with coronal and sagittal reformats. For radiation dose reduction, the following was used: automated exposure control, adjustment of mA and/or kV according to patient size. COMPARISON: [facility], CT, CT HEAD/BRAIN WO CON, 11/18/2023, 18:22. FINDINGS: Image quality: Diagnostic. CSF spaces: Basal cisterns are patent. No extra-axial fluid collections. The ventricles are symmetric in size and shape. Brain: No intracranial bleeds or masses. There is cerebral volume loss for age, with resultant ventricular and sulcal prominence. There are periventricular and deep white matter chronic small vessel ischemic changes. There is intracranial internal carotid artery atherosclerosis. Skull and face: Calvarium and visualized facial bones appear intact, without suspicious lesions. Sinuses: Visualized sinuses and mastoids are clear. IMPRESSION: 1. No acute intracranial process. 2. Moderate atrophy and chronic microvascular ischemic changes. Dictated by: Damari Mirza M.D. on 12/10/2023 at 11:33 Approved by: Damari Mirza M.D. on 12/10/2023 at 11:34 MDM Narrative Medical decision making narrative: Patient presenting due to concerns that he was unable to care for himself. Multiple visits in the last 30 days for similar presentation. Patient's home is frequently reported to be filthy with urine and feces everywhere and patient in state of confusion. Patient does not want to be in the emergency department, however he can not answer basic orientation questions and is obviously confused with no insight into his situation. 0700 - care of patient signed out to daytime physician. Pending PT eval. Patient kt nd evaluated by myself. Patient has had multiple visits for similar presentations, home health care saw him yesterday and refused to continue to see the patient because they felt it was unsafe. EMS notes that they run on him quite frequently sometimes daily. Patient does not wish to be in the department but can not answer basic orientation questions, he knows the year but does not know how he got here, why he is here and does not seem to have any understanding of his situation. There is an APS case open currently. Patient reportedly had a lot of falls with EMS recently so head CT was added on which shows no acute change. Labs show no clear infectious changes. Urine shows calcium oxalate crystals but no UTI. Patient had PT evaluation in the department Spoke with Dr. Metcalf, social admit: observation with plan for OT on Tuesday as not available currently. Spoke with Dr. Peres, physical beds available here the floor. We will likely admit tomorrow. Home meds were ordered, dvt prophylaxis, patient is nightly trazodone. Carvedilol was hold patient's heart rates been in the 50s to 60s. 12/11/2023: Re-contact Dr. Peres, no events overnight per nursing or Dr. Peace. Patient accepted for observation. Discharge Plan Departure Patient Disposition: Admitted as Observation Clinical Impression: Failure to thrive Admit Date/Time: 12/11/23 08:20 Admit Provider: Jamison Peres
--- NOTE | 2023-12-09 18:26 | CM.SWNOTE ---
Addendum entered by Sophie Martínez 12/09/23 19:15: [employer] recalls recent conversation last week with [facility] Steward/[employer] that patient's [facility] case mgr was looking into AFHs for patient and needed to do new assessment to determine level of care. Patient has been without an assigned caregiver for over 6 months due to lack of availability and patient's hx of behaviors. Plan: follow up further with [facility] case mgr, awaiting return call. Sophie Martínez, [facility] Original Note: ED [employer] Note Patient is 68 y/o male who presents to ED via [employer]D and EMS due to concern for self neglect/RUTHIE. It is reported that patient did not want to come to ED. It is reported that [facility] physical therapist called 911 due to concern for patient being undressed, sitting in urine, medications spread out through out the ground and presenting with confusion. Per LE, patient was not able to endorse when he last ate or drank, or took his medications. LE states concern for a spring sticking out of patient's bed and patient presenting with wounds on his buttocks. This is patient's 5th presentation to the ED in less than a month regarding similar concerns. Patient's PCP is RYAN Delarosa, Patient has Medicaid, [employer] and Medicare insurance. Patient has hx of ETOH and Tobacco use, essential hypertension, Cardiomyopathy, and acquired hypothyroidism. This [employer] receives VM from Shivani at [facility] stating that they will be unable to continue services for patient and that a clinician called 911 today due to concern for patient's safety and welfare. It is reported that patient was confused and not safe at home, not taking care of self. There is concern that no one is taking care of patient. [employer] calls patient's [facility] case mgr November (ph# [phone], ext [phone]) and leaves VM requesting return call. [employer] calls Gregory Sorensen [facility] room attendant and leaves VM regarding patient. [employer] enters room to meet with patient, patient knows he is at the hospital, states he did not want to come to the ED and adamantly requests to go home. Patient denies concern for his ability to care for himself, patient states he gets meals on wheels 5 days a week and states he is able to answer the door to access the food. Patient has a brother who lives in [place], who is aware of patient's living condition and lack of ability to care for himself. It was previously reported that patient's brother takes him to medical appts and visits a few times a month. It was previously reported by [facility] Steward/[employer] Gregory Sorensen that patient was supposed to be evicted on 12/09/23 but [facility] agreed to keep patient in his home until his state case mgr found new housing for patient. [employer] submits APS report due to ongoing and significant concerns of self neglect. This is a heightened concern because patient's HH services were discontinued due to their concern for patient's safety and ability to care for self at home. This [employer] MAK[employer] requested that APS intake screen in, previously [employer] was informed that any APS report on patient screens out because patient has a [facility] case mgr and is supposed to have higher level of care services in place. Online Report Confirmation Number: [id number] ED provider to evaluate patient further for medical treatment. [employer] and ED provider to determine safe disposition for patient, it is the opinion of this [employer] that patient would benefit from an OT assessment to determine patient's cognitive level of functioning. Sophie Martínez, [employer]
[2023-12-09 18:29] LABS: Add Manual Diff / Slide Review NO; Basophils Absolute Auto 100 /uL (0-100); Basophils Percent Auto 2.2 % (0-2); Eosinophils Absolute Auto 200 /uL (0-450); Eosinophils Percent Auto 3.9 % (2-4); Hematocrit 42.4 % (41-53); Hemoglobin 14.6 g/dL (13.5-17.5); Lymphocytes Absolute Auto 1400 /uL (1100-4500); Lymphocytes Percent Auto 25.7 % (25-40); Mean Corpuscular HGB Conc 34.3 % (30-36); Mean Corpuscular Volume 93.2 fL (80-100); Monocytes Absolute Auto 800 /uL (0-900); Monocytes Percent Auto 14.4 % (3-14); Neutrophils Absolute Auto 3000 /uL (1500-7000); Neutrophils Percent Auto 53.8 % (50-75); Platelet Count 266 X10^3/uL (150-400); Red Blood Cell Count 4.55 X10^6/uL (4.5-5.9); Red Cell Distribution Width 13.6 % (11.6-14.8); White Blood Cell Count 5.6 X10^3/uL (4.5-11.0)
[2023-12-09 18:39] LABS: Appearance Urine UA CLEAR; Bilirubin Urine UA NEGATIVE (NEGATIVE); Color Urine UA YELLOW; Glucose Urine UA NEGATIVE (Negative); Ketones Urine UA NEGATIVE (NEGATIVE); Leukocyte Esterase Urine UA NEGATIVE (NEGATIVE); Nitrite Urine UA NEGATIVE (Negative); Occult Blood Urine UA NEGATIVE (Negative); Protein Urine UA NEGATIVE (Negative); Specific Gravity Urine UA 1.025 (1.000-1.035); pH Urine UA 6.5 (4.5-8.0)
[2023-12-09 18:42] LABS: UR Morphine/Opiate cutoff 300 Negative (Negative); Ur Creatinine Normal (Normal); Ur Specific Gravity Normal (Normal); Urine Amphetamines Negative (Negative); Urine Barbiturates Negative (Negative); Urine Benzodiazepines Negative (Negative); Urine Cocaine Negative (Negative); Urine MDMA Negative (Negative); Urine Methadone Negative (Negative); Urine Methamphetamines Negative (Negative); Urine Oxycodone Negative (Negative); Urine Phencyclidine Negative (Negative); Urine Tetrahydrocannabinol Negative (Negative); Urine Tricyclic Antidepressant Negative (Negative); Urine pH Normal (Normal)
--- NOTE | 2023-12-09 18:47 | PC.NURSE ---
Patient has numerous scratches on his bilateral, posterior, thighs and buttocks. Scratches are scabbed over and erin-able. Pt denies having any pain, and states It's a pain in the a being here! I want to go home. I dont want to be here. Pt has reddened, erin-able areas including: Right knee, Left knee, Right forearm, Right elbow, right shoulder.
[2023-12-09 18:50] LABS: Alanine Aminotransferase 19 IU/L (<50); Albumin 3.5 g/dL (3.5-5.0); Albumin Globulin Ratio 0.9 (1.0-2.8); Alkaline Phosphatase 106 U/L (38-126); Aspartate Aminotransferase 30 IU/L (17-59); BUN Creatinine Ratio 29.4 (6-22); Bilirubin Total 0.6 mg/dL (0.2-1.3); Blood Urea Nitrogen 15 mg/dL (9-20); Calcium 8.7 mg/dL (8.4-10.2); Carbon Dioxide 31 mmol/L (22-32); Chloride 102 mmol/L (98-107); Estimated Glomerular Filt Rate > 60 mL/min (>60); Ethanol (ETOH) < 10 mg/dL; Globulin 3.8 g/dL (1.7-4.1); Glucose 93 mg/dL (80-110); HEMOLYSIS < 15 (0-50); Potassium 4.1 mmol/L (3.4-5.1); Sodium 134 mmol/L (137-145); Total Protein 7.3 g/dL (6.3-8.2)
[2023-12-09 18:57] LABS: Bacteria Urine None Seen; Calcium Oxalate Crystals Urine Occasional; Culture Indicated Urine Cult Not Indicated; RBC Urine 0-1/HPF (0-5/HPF); Squamous Epithelial Cell Urine None Seen (0-5/HPF); Urine Volume Low Vol <10mL unspun; WBC Urine None Seen (0-5/HPF)
[2023-12-09 19:29] LABS: Thyroid Stimulating Hormone 4.28 uIU/mL (0.47-4.68)
[2023-12-10] VITALS (37 sets, daily range): BP systolic 123–145; BP diastolic 67–98; PULSE 37–91; RESP 15–33; TEMP 36.7; O2SAT 95–100
[2023-12-10] MEDS: TRAZODONE 50 MG TABLET 200 MG PO ×2 (01:25→22:17)
--- NOTE | 2023-12-10 07:20 | PC.NURSE ---
pt was awoken for morning v/s I introduced myself to pt. took over 1:1 from JERZY Chahal. 1:1 observation in room.
--- NOTE | 2023-12-10 09:48 | PC.NURSE ---
Addendum entered by Jessenia Gil R.N. 12/10/23 13:05: 1300: Call placed to PT for pending consult for admission Addendum entered by Jessenia Gil R.N. 12/10/23 10:37: No OT today. Dr Hand placed order for PT. Called and spoke to PT. Original Note: 899: Call placed to OT by JERZY Cooper. 48: Call placed to OT by this RN and message left on machine
--- NOTE | 2023-12-10 11:00 | DI.CT.S_ITS ---
PROCEDURE: CT HEAD/BRAIN WO CON INDICATIONS: weakness, falls, TECHNIQUE: Noncontrast 4.5 mm thick angled axial sections acquired from the foramen magnum to the vertex, with coronal and sagittal reformats. For radiation dose reduction, the following was used: automated exposure control, adjustment of mA and/or kV according to patient size. COMPARISON: [facility], CT, CT HEAD/BRAIN WO CON, 11/18/2023, 18:22. FINDINGS: Image quality: Diagnostic. CSF spaces: Basal cisterns are patent. No extra-axial fluid collections. The ventricles are symmetric in size and shape. Brain: No intracranial bleeds or masses. There is cerebral volume loss for age, with resultant ventricular and sulcal prominence. There are periventricular and deep white matter chronic small vessel ischemic changes. There is intracranial internal carotid artery atherosclerosis. Skull and face: Calvarium and visualized facial bones appear intact, without suspicious lesions. Sinuses: Visualized sinuses and mastoids are clear. IMPRESSION: 1. No acute intracranial process. 2. Moderate atrophy and chronic microvascular ischemic changes. Dictated by: Damari Mirza M.D. on 12/10/2023 at 11:33 Approved by: Damari Mirza M.D. on 12/10/2023 at 11:34
--- NOTE | 2023-12-10 14:25 | PT.IIE ---
Surgical History (Last Reviewed 12/10/23 @ 04:51 by Hemalatha Peace MD) History of cataract removal with insertion of prosthetic lens History of nasal surgery (1963) History of repair of hiatal hernia Hx of hernia repair (1995) Medical History (Last Reviewed 12/10/23 @ 04:51 by Hemalatha Peace MD) Acute hyponatremia Alcohol dependence Alcoholism Anoxic brain injury Cardiomyopathy Cataracts, bilateral (2007) Chronic cough (1999) COPD (chronic obstructive pulmonary disease) Dislocated elbow (2000) Dislocated shoulder (2001) Eczema (2016) Elevated liver function tests Essential hypertension Fractures (~1963) GERD (gastroesophageal reflux disease) Hypothyroidism Impaired vision Intertrochanteric fracture of left hip Paroxysmal atrial fibrillation Pulmonary nodule (~07/2019) Physical Therapy Inpatient Evaluation/Re-Eval M1 PT/OT-IP Prior Functional Status Start: 12/10/23 17:09 Freq: Status: Active Protocol: Document 12/10/23 14:25 AB (Rec: 12/10/23 17:28 AB [id number]) Medical Review Prior Functional Status Medical History Reviewed Yes Communication able to make needs known Mobility and Gait pt stated that he was modified independent with mobility using 4WW but that he was not moving much at home Social History Household Members none Living Arrangements Apartment/Condo Number of Floors (Floors) One Floor Number of Stairs To Enter/Railing? pt lives on a 2nd level condo apartment with access to an elevator Home Environment Standard Height Toilet,Tub/ Shower,Elevator Home Equipment Four Wheel Walker,Shower Seat with Backrest,Shower Seat without Backrest,Grab Bars Near Toilet,Grab Bars In Shower M2 PT-IP Current Condition Start: 12/10/23 17:09 Freq: Status: Active Protocol: Document 12/10/23 14:25 AB (Rec: 12/10/23 17:28 AB [id number]) Physical Therapy Current Condition Current Condition Evaluation Date 12/10/23 Treatment Diagnosis failure to thrive; difficulty in walking Onset Date 12/10/23 M3 PT-IP Subjective Start: 12/10/23 17:09 Freq: Status: Active Protocol: Document 12/10/23 14:25 AB (Rec: 12/10/23 17:28 AB [id number]) Subjective Physical Therapy Visit Type Type Initial Evaluation Visit Start Time 14:25 Visit Stop Time 14:50 Number of TIMBER WATCHMAN Visits 0 Physical Therapy Visit Comments Patient Comments agreeable to move M4 PT-IP Mobility and Gait Start: 12/10/23 17:09 Freq: Status: Active Protocol: Document 12/10/23 14:25 AB (Rec: 12/10/23 17:28 AB [id number]) PT-Bed Mobility Assessment Supine to Sit Supine to Sit Independent Sit to Supine Sit to Supine Independent PT-Transfer Assessment Sit to and From Stand Sit to and from Stand Standby Assistance,1 Person Assistance,Use of Upper Extremities Equipment Transfer Assistive Device Gait Belt,Front Wheeled Walker Orthotic/Prosthetic Devices or Brace: No Comments Mobility Comments pt supine in bed and agreeable to mobilize with PT. pt stated that he just wants to go home. completed supine to sit mod I. able to sit on EOB SBA. completed sit to stand SBA and ambulated ~ 50 ft using FWW SBA to CGA for safety due to pt's impulsiveness. presents with unsteady gait but without LOB during ambulation. pt directs his own care and is not too receptive to cues/ recommendations. pt with increase B knee flexion during ambulation with stooped posture. pt sat on EOB but requested to use his urinal. pt able to maintain standing using fWW for support while using urinal SBA. pt completed sit to supine mod I. positioned pt in bed call light and table placed within reach. Talked to ED doctor regarding pt's mobility. pt was evaluated by this PT 12/03/23 with the same issue/situation and pt now back to the ED. pt is at PLOF and able to mobilize with pt with instructions due to cognitive issues and will need 21/03 assist due to decrease safety awareness. Gait Assessment Gait Gait Assistance Required: Standby Assistance,Contact Guard Assist,1 Person Assist Distance (Feet) 50 Able to Maintain Weight Bearing Status Yes During Gait Assistive Devices Assistive Device Gait Belt,Front Wheeled Walker Orthotic/Prosthetic Devices or Brace: No Gait Deviations General Gait Pattern Antalgic,Decreased Stride Length,Decreased Feet Clearance,Step-to Gait Factors Limiting Gait Function Factors Limiting Gait Function Decreased Activity Tolerance, Decreased Strength,Difficulty Following Directions,Limited Range of Motion,Pain,Poor Balance,Poor Safety Awareness PT-Balance Assessment Sitting Balance and Reactions Static Sitting Balance Ability Normal Dynamic Sitting Balance Ability Normal Standing Balance and Reactions Static Standing Balance Ability Fair Dynamic Standing Balance Ability Fair Device Used FWW M5 PT-IP Objective Assessments Start: 12/10/23 17:09 Freq: Status: Active Protocol: Document 12/10/23 14:25 AB (Rec: 12/10/23 17:28 AB [id number]) Orientation Orientation/Cognition Level of Alertness Confusional State Orientation Name Safety Awareness Decreased Safety Awareness Memory Description Short Term Impaired Gross Range of Motion Lower Extremity ROM Assessment Bilaterally Impaired Impairments B knee flexion tightness and ankle tightness towards DF Strength Lower Extremity Strength Assessment Within Functional Limits Muscle Tone Muscle Tone WNL Yes M6 PT-IP Treatment Start: 12/10/23 17:09 Freq: Status: Active Protocol: Document 12/10/23 14:25 AB (Rec: 12/10/23 17:28 AB [id number]) Physical Therapy Treatment Education Education Provided Safety M7 PT-IP Assessment and Plan Start: 12/10/23 17:09 Freq: Status: Active Protocol: Document 12/10/23 14:25 AB (Rec: 12/10/23 17:28 AB [id number]) PT Summary Assessment and Plan Potential Rehabilitation Potential Fair Status of Condition at Evaluation Stable Summary Impairments Pain,ROM,Strength,Balance, Coordination,Sensation,Tone, Cognition,Bed Mobility, Transfers,Gait,Activity Tolerance Assessment Summary Pt is a 68 y/o M who presented to the ED for failure to thrive. PT eval received from ED to determined d/c plan and safety. pt was evaluated by this PT 12/03/23 and pt is at [facility]. pt's mobility restriction is due to decrease safety awareness which is due to his mental and cognitive status. pt needs 24/ assist for initiation of mobility and safety concerns and will require LTC placement. No further PT indicated at this time. Talked to ED social staff worker will require OT eval to assess mental/cognitive status and ADL needs. Frequency of Treatment Frequency Of Treatment Discharge Recommendations To Nursing Amount of Assist Needed 1 Person Assist Discharge Recommendations PT Discharge Recommendations Home with 24/7 Assist Available Transportation Needs at Discharge Wheelchair/Cabulance
--- NOTE | 2023-12-10 14:28 | PC.NURSE ---
This MANUFACTURING INDUSTRIAL ENGINEER 1:1 at bedside. pt pulse rate on pulse ox monitor reached 37 while sleeping. woke pt and rate returned to 60. JUNE Ruelas made aware.
--- NOTE | 2023-12-10 15:42 | PM.HP.1 ---
History of Present Illness History of Present Illness Chief complaint: SI/RUTHIE Narrative: has [place] registered nurse hh case manager PT saw - weak, needs correction care needs OT/mmse -- can happen Tuesday falls all the time social work - declared incompetent? brother lives in [facility] Medical History Acute hyponatremia Intertrochanteric fracture of left hip Alcoholism Anoxic brain injury Essential hypertension Cardiomyopathy Paroxysmal atrial fibrillation Alcohol dependence Elevated liver function tests Pulmonary nodule (~07/2019) COPD (chronic obstructive pulmonary disease) Impaired vision GERD (gastroesophageal reflux disease) Hypothyroidism Eczema (2016) Chronic cough (1999) Dislocated elbow (2000) Dislocated shoulder (2001) Fractures (~1963) Cataracts, bilateral (2007) Surgical History History of repair of hiatal hernia Hx of hernia repair (1995) History of nasal surgery (1963) History of cataract removal with insertion of prosthetic lens Family History Father History of arteriosclerotic cardiovascular disease History of emphysema Mother Cancer Grandfather No problems noted. Grandmother Stroke Grandfather No problems noted. Grandmother No problems noted. Social History household members: none Smoking Status: Current every day smoker Tobacco: How many years used: 22 quit status: not considering quitting second hand exposure: No alcohol intake: current substance use type: does not use Meds Home Medications and Allergies Home Medications Medication Instructions Recorded Confirmed Type budesonide 160 mcg-glycopyr 9 1 inh inhalation 12/10/23 History mcg-formot 4.8 mcg/actuation HFA inhaler (Breztri Aerosphere) carvedilol 3.125 mg tablet 3.125 mg PO BID 12/10/23 12/10/23 History fluticasone fur. 200 mcg-umeclid 1 ea inhalation DAILY 12/10/23 12/10/23 History 62.5 mcg-vilant 25 mcg inhalat.powder (Trelegy Ellipta) levothyroxine 75 mcg tablet 75 mcg PO QAM 12/10/23 12/10/23 History losartan 50 mg tablet 50 mg PO DAILY 12/10/23 12/10/23 History losartan 50 mg tablet 50 mg PO DAILY 12/10/23 12/10/23 History trazodone 100 mg tablet 200 mg PO ONCE PM PRN Agitation 12/10/23 12/10/23 History Allergies Allergy/AdvReac Type Severity Reaction Status Date / Time ciprofloxacin [From [facility]] Allergy Severe SWELLING Verified 12/03/23 08:37 IN HANDS, ARMS, LEGS AND FEET pantoprazole AdvReac Intermediate n/v, Verified 12/03/23 08:37 omeprazole okay Exam Vital Signs (past 8 hours): - 12/10/23 08:00 12/10/23 08:30 12/10/23 09:00 Pulse Rate 57 L 59 L 67 Respiratory Rate Blood Pressure Pulse Oximetry 97 96 96 Oxygen Delivery Method 12/10/23 09:30 12/10/23 10:00 12/10/23 10:01 Pulse Rate 67 70 Respiratory Rate Blood Pressure 128/80 Pulse Oximetry 98 98 Oxygen Delivery Method 12/10/23 10:01 12/10/23 10:30 12/10/23 11:00 Pulse Rate 73 62 61 Respiratory Rate Blood Pressure Pulse Oximetry 97 96 95 Oxygen Delivery Method 12/10/23 11:30 12/10/23 12:00 12/10/23 12:30 Pulse Rate 60 57 L 54 L Respiratory Rate Blood Pressure Pulse Oximetry 99 99 99 Oxygen Delivery Method 12/10/23 13:00 12/10/23 13:30 12/10/23 14:00 Pulse Rate 63 56 L 59 L Respiratory Rate Blood Pressure Pulse Oximetry 99 100 99 Oxygen Delivery Method 12/10/23 14:16 12/10/23 14:16 12/10/23 14:24 Pulse Rate 67 37 L Respiratory Rate Blood Pressure 143/67 H Pulse Oximetry 100 99 Oxygen Delivery Method Room Air 12/10/23 14:27 12/10/23 14:30 12/10/23 15:00 Pulse Rate 60 59 L 61 Respiratory Rate 20 Blood Pressure Pulse Oximetry 99 99 99 Oxygen Delivery Method Room Air Oxygen Delivery Method Room Air Objective Labs 12/09/23 18:15 12/09/23 18:15 Labs: Laboratory Results - last 24 hr 12/09/23 12/09/23 12/09/23 17:47 17:47 18:15 WBC 5.6 RBC 4.55 Hgb 14.6 Hct 42.4 MCV 93.2 MCH 32.0 MCHC 34.3 RDW 13.6 Plt Count 266 Neut % (Auto) 53.8 Lymph % (Auto) 25.7 [place] % (Auto) 14.4 H Eos % (Auto) 3.9 Baso % (Auto) 2.2 H Neut # (Auto) 3000 Lymph # (Auto) 1400 [place] # (Auto) 800 Eos # (Auto) 200 Baso # (Auto) 100 Sodium 134 L Potassium 4.1 Chloride 102 Carbon Dioxide 31 BUN 15 Creatinine 0.51 L Estimated GFR > 60 BUN/Creatinine Ratio 29.4 H Glucose 93 Calcium 8.7 Total Bilirubin 0.6 AST 30 ALT 19 Alkaline Phosphatase 106 Total Protein 7.3 Albumin 3.5 Globulin 3.8 Albumin/Globulin Ratio 0.9 L TSH 4.28 Urine Color Yellow Urine Appearance Clear Urine pH 6.5 Normal Ur Specific [place] 1.025 Urine Protein Negative Urine Glucose (UA) Negative Urine Ketones Negative Urine Occult Blood Negative Urine Nitrate Negative Urine Bilirubin Negative Urine Urobilinogen 1.0 Ur Leukocyte Esterase Negative Urine RBC 0-1/hpf Urine WBC None seen Ur Squamous Epith Cells None seen Calcium Oxalate Crystal Occasional H Urine Bacteria None seen Ur Culture Indicated? Cult not indicated Vol Urine Centrifuged Low vol <10ml unspun A U Opiates 300ng/mL cut Negative Ur Oxycodone Screen Negative Urine Methadone Screen Negative Ur Barbiturates Screen Negative U Tricyclic Antidepress Negative Ur Phencyclidine Scrn Negative Ur Amphetamines Screen Negative U Methamphetamines Scrn Negative Ur MDMA Scrn (Ecstasy) Negative U Benzodiazepines Scrn Negative Urine Cocaine Screen Negative U Marijuana (THC) Screen Negative Urine Specific [place] Normal Ethyl Alcohol < 10 Ur Creatinine Normal
--- NOTE | 2023-12-10 21:11 | PC.NURSE ---
Pt still has scratches on his bilateral upper thighs and buttock area. Advised that these are better looking than previous visits. Pt has a mattress at home that the springs are coming through.
[2023-12-10] MEDS: BUDESONIDE 0.5 MG/2 ML NEB INH (21:25)
[2023-12-11] VITALS (11 sets, daily range): BP systolic 120–159; BP diastolic 65–85; PULSE 60–98; RESP 16–29; TEMP 36.6–37; O2SAT 95–99
[2023-12-11] MEDS: LEVOTHYROXINE 75 MCG TABLET PO (06:45)
[2023-12-11] MEDS: BUDESONIDE 0.5 MG/2 ML NEB INH (08:53)
[2023-12-11] MEDS: LOSARTAN 50 MG TABLET PO (09:12)
[2023-12-11] MEDS: carvediloL 3.125 MG TABLET PO ×2 (10:43→20:50)
[2023-12-11 11:36] LABS: Appearance Urine UA CLEAR; Bilirubin Urine UA NEGATIVE (NEGATIVE); Color Urine UA YELLOW; Glucose Urine UA NEGATIVE (Negative); Ketones Urine UA NEGATIVE (NEGATIVE); Leukocyte Esterase Urine UA NEGATIVE (NEGATIVE); Nitrite Urine UA NEGATIVE (Negative); Occult Blood Urine UA NEGATIVE (Negative); Protein Urine UA NEGATIVE (Negative); Specific Gravity Urine UA 1.015 (1.000-1.035); pH Urine UA 6.5 (4.5-8.0)
[2023-12-11 11:46] LABS: Bacteria Urine Occasional (0-1); RBC Urine 0-1/HPF (0-5/HPF); Squamous Epithelial Cell Urine None Seen (0-5/HPF); Urine Volume 10mL (spun); WBC Urine None Seen (0-5/HPF)
[2023-12-11 11:47] LABS: Culture Indicated Urine Cult Not Indicated
--- NOTE | 2023-12-11 12:49 | PM.HP.1 ---
History of Present Illness History of Present Illness Date Patient Seen: 12/11/23 Time Patient Seen: 12:53 Chief complaint: SI/RUTHIE Narrative: 67-year-old male with a history of alcohol misuse disorder with alcohol dependence anoxic brain injury hypertension cardiomyopathy paroxysmal atrial fibrillation smoker and frequent falls with acquired hypothyroidism who has been brought to the ER multiple times over concern for unsafe living conditions after home health evaluation. He did not appear to have insight into his current situation and case management was consulted in the emergency room. Infectious and metabolic workup was unremarkable in the emergency. Case management has been unable to find adequate discharge plan for him, so patient was admitted for further evaluation. He states he refused to come to the hospital but was brought in anyway. He states he usually walks with a walker, will not typically do anything outside of his apartment without help / grants specialist whom visits. He usually just sits in his apartment and watches TV. He states he is able to get up and use the restroom. He is unable to explain why his apartment was in such bad shape. He has some epigastric fullness with eating, but otherwise no current complaints. He was seen ambulating with the walker with minimal assistance. He states his last etoh use was many weeks ago. That he has not been able to drink due to being unable to dispose of the empty containers. [facility] Medical History Acute hyponatremia Intertrochanteric fracture of left hip Alcoholism Anoxic brain injury Essential hypertension Cardiomyopathy Paroxysmal atrial fibrillation Alcohol dependence Elevated liver function tests Pulmonary nodule (~07/2019) COPD (chronic obstructive pulmonary disease) Impaired vision GERD (gastroesophageal reflux disease) Hypothyroidism Eczema (2016) Chronic cough (1999) Dislocated elbow (2000) Dislocated shoulder (2001) Fractures (~1963) Cataracts, bilateral (2007) Surgical History History of repair of hiatal hernia Hx of hernia repair (1995) History of nasal surgery (1963) History of cataract removal with insertion of prosthetic lens Family History Father History of arteriosclerotic cardiovascular disease History of emphysema Mother Cancer Grandfather No problems noted. Grandmother Stroke Grandfather No problems noted. Grandmother No problems noted. Social History household members: none Smoking Status: Former smoker Tobacco: How many years used: 22 quit status: not considering quitting second hand exposure: No alcohol intake: former substance use type: does not use Meds Home Medications and Allergies Home Medications Medication Instructions Recorded Confirmed Type budesonide 160 mcg-glycopyr 9 1 inh inhalation 12/10/23 History mcg-formot 4.8 mcg/actuation HFA inhaler (Breztri Aerosphere) carvedilol 3.125 mg tablet 3.125 mg PO BID 12/10/23 12/10/23 History fluticasone fur. 200 mcg-umeclid 1 ea inhalation DAILY 12/10/23 12/10/23 History 62.5 mcg-vilant 25 mcg inhalat.powder (Trelegy Ellipta) levothyroxine 75 mcg tablet 75 mcg PO QAM 12/10/23 12/10/23 History losartan 50 mg tablet 50 mg PO DAILY 12/10/23 12/10/23 History losartan 50 mg tablet 50 mg PO DAILY 12/10/23 12/10/23 History trazodone 100 mg tablet 200 mg PO ONCE PM PRN Agitation 12/10/23 12/10/23 History Allergies Allergy/AdvReac Type Severity Reaction Status Date / Time ciprofloxacin [From [facility]] Allergy Severe SWELLING Verified 12/03/23 08:37 IN HANDS, ARMS, LEGS AND FEET pantoprazole AdvReac Intermediate n/v, Verified 12/03/23 08:37 omeprazole okay Review of Systems Review of Systems Narrative: All other systems reviewed with the patient and are negative unless otherwise stated. Exam Vital Signs (past 8 hours): - 12/11/23 05:09 12/11/23 05:10 12/11/23 08:21 Temperature Pulse Rate 65 71 Respiratory Rate 18 Blood Pressure 120/77 Blood Pressure [Left Arm] 120/77 Pulse Oximetry 95 99 Oxygen Delivery Method Room Air 12/11/23 08:23 12/11/23 08:23 12/11/23 08:30 Temperature Pulse Rate 69 60 Respiratory Rate Blood Pressure 159/65 H Blood Pressure [Left Arm] Pulse Oximetry 97 97 Oxygen Delivery Method 12/11/23 09:00 12/11/23 09:12 12/11/23 10:39 Temperature 97.8 F Pulse Rate 98 H 62 68 Respiratory Rate 29 H 18 Blood Pressure 159/65 H 128/85 Blood Pressure [Left Arm] Pulse Oximetry 96 98 Oxygen Delivery Method 12/11/23 10:43 Temperature Pulse Rate 68 Respiratory Rate Blood Pressure 128/85 Blood Pressure [Left Arm] Pulse Oximetry Oxygen Delivery Method Oxygen Delivery Method Room Air Narrative Exam Narrative: Gen: No acute distress, oriented to person, place. CV: RRR no m/r/g Pulm: CTA b/l Abd: S NT ND Ext: trace edema b/l LE, no joint effusions. Objective Labs 12/09/23 18:15 12/09/23 18:15 Labs: Laboratory Results - last 24 hr 12/11/23 11:15 Urine Color Yellow Urine Appearance Clear Urine pH 6.5 Ur Specific [place] 1.015 Urine Protein Negative Urine Glucose (UA) Negative Urine Ketones Negative Urine Occult Blood Negative Urine Nitrate Negative Urine Bilirubin Negative Urine Urobilinogen 2.0 H Ur Leukocyte Esterase Negative Urine RBC 0-1/hpf Urine WBC None seen Ur Squamous Epith Cells None seen Urine Bacteria Occasional (0-1) Ur Culture Indicated? Cult not indicated Vol Urine Centrifuged 10ml (spun) Assessment & Plan Assessment & Plan narrative: 1. Failure to thrive - PT / OT assessment, suspect in the setting of worsening cognitive impairment. No focal deficits to suggest infarcts. CT head negative for bleed - case management / social studies department chair consulted. - will repeat TTE given most recent echo was 2019, to see if any decrease in heart function is possibly contributing. 2. CHFrEF - most recent TTE was 2019, EF 50-55% markedly improved from prior - continue home coreg and losartan 3. Paroxysmal afib - presume not on anticoagulation due to fall risk. - continue home coreg. 4. hypothyroid - TSH unremarkable, continue home levothyroxine 75 mcg. 5. COPD wihtout exacerbation - replace home inhalers with formular equivalent nebulizers, duoneb BID and pulmicort BID with as needed albuterol 6. Dementia / cognitive impairment, likely related to chronic EtOH use - will formally assess with [facility]UMS with OT Code: Full, surrogate is patient's brother. DVT: Lovenox daily I have utilized all available immediate resources to obtain, update, or review the patient's current medications. Dispo: patient admitted under observation status. Likely will need nursing home placement pending above evaluations. Additional history obtained via discussions with the ER provider. These discussions contributed to the creation of the above assessment and plan. I have reviewed patient's presenting documentation and outpatient documentation, labs, and imaging personally.
--- NOTE | 2023-12-11 12:54 | DI.ECHO.S_ITS ---
[facility] +---------+ [facility] +---------+ : : [address] : : : : [id number] : : : : Phone: [phone]+ Echocardiogram Report + + :Name: CHIARA MIRANDA I Study Date: 12/12/2023 Height: 70 in : :[facility] ReadingLocation: Weight: 140 lb : : Gender: Male BSA: 1.8 m2 : :: 1955 Age: 68 yrs BP: 140/76 mmHg: :Reason For Study: WEAKNESS : :Ordering Physician: MARY, : :CONY CAMPOS Performed By: Caity Reyes : :Referring: CONY HERNANDEZ : + + Interpretation Summary The ejection fraction is estimated to be 55-60%. Grade I diastolic dysfunction. The right ventricle is normal in size and function. There is mild mitral regurgitation. The IVC is of normal diameter and collapses greater than 50% with a sniff. This suggests a low right atrial pressure of 3 mm Hg. Procedure: A two-dimensional transthoracic echocardiogram with color flow and Doppler was performed. The study quality was technically adequate. Comparison is made with the echocardiogram of 08/01/2020. The patient had occasional PVCs during the exam. The patient was in sinus bradycardia with heart rates between 59-66 bpm during the exam. Left Ventricle: The left ventricle is normal in size and wall thickness. The ejection fraction is estimated to be 55-60%. There are no obvious focal wall motion abnormalities noted but poor endocardial definition reduces the sensitivity for the detection of such. Grade I diastolic dysfunction. Right Ventricle: The right ventricle is normal in size and function. Atria: The left atrium is mildly dilated. Right atrial size is normal. There is no Doppler evidence for an interatrial shunt. Mitral Valve: The mitral valve is normal in structure and function. There is mild mitral regurgitation. Aortic Valve: The aortic valve is trileaflet. The aortic valve is slightly calcified. There is no aortic valve stenosis. No aortic regurgitation is present. Tricuspid Valve: The tricuspid valve is normal in structure and function. There is trace tricuspid regurgitation. Pulmonic Valve: The pulmonic valve leaflets are thin and pliable; valve motion is normal. There is mild pulmonic regurgitation. Great Vessels: The aortic root is mildly dilated. The ascending aorta could not be visualized. The IVC is of normal diameter and collapses greater than 50% with a sniff. This suggests a low right atrial pressure of 3 mm Hg. Pericardium/ Pleura There is no pericardial effusion. There is no pleural effusion. MMode/2D Measurements & Calculations LVIDd: 5.0 cm LVOT diam: 2.3 cm LVIDs: 3.5 cm Ao root diam: 4.3 cm FS: 28.7 % IVSd: 1.1 cm LVPWd: 1.0 cm LV larry. diameter/BSA (cm/m^2): 2.8 LV sys. diameter/BSA (cm/m^2): 2.0 LA A2 area: 26.8 cm2 RA long axis: 5.3 cm LA A4 area: 16.9 cm2 RA area: 13.3 cm2 LA length (vol): 5.1 cm RA vol: 28.3 ml LA vol: 75.0 ml RA : 15.8 ml/m2 LA vol index: 41.8 ml/m2 IVC diam: 1.7 cm RVD1 (basal): 3.9 cm RVD2 (mid): 3.0 cm TAPSE: 1.8 cm Doppler Measurements & Calculations Ao V2 max: 94.6 cm/sec LVOT Max Rual: 65.2 cm/sec Ao V2 mean: 68.9 cm/sec LV V1 max P.7 mmHg Ao max P.6 mmHg LV V1 VTI: 14.8 cm Ao mean P.0 mmHg YAYO(I,D): 3.1 cm2 Ao V2 VTI: 19.9 cm YAYO(V,D): 2.9 cm2 sev ratio: 0.74 YAYO indexed to BSA (cm^2/m^2): 1.7 MV E max raul: 73.9 cm/sec PA V2 max: 53.8 cm/sec MV A max raul: 76.8 cm/sec PA V2 mean: 39.9 cm/sec MV E/A: 0.96 PA mean P.68 mmHg Med Peak E' Raul: 6.1 cm/sec PA pr(Accel): 53.3 mmHg E/E' med: 12.0 Lat Peak E' Raul: 6.8 cm/sec E/E' lat: 10.8 E/e' average: 11.4 MV dec time: 0.22 sec SV(LVOT): 61.7 ml Reading Physician:CONOR
[2023-12-11] MEDS: ACETAMINOPHEN 325 MG TABLET 650 MG PO (14:29)
--- NOTE | 2023-12-11 18:47 | CM.DANOTE ---
DCP Assessment Note Pt is a 68yo M, resident [facility], presents to ED via [employer] and EMS due to concern for self-neglect/RUTHIE. Pt lives alone in his apartment and has been working with various community agencies ([facility], [employer], [facility], meals on wheels) in an effort to establish a safe living arrangement. Pt has a history of ETOH and Tobacco use, essential hypertension, cardiomyopathy and acquired hypothyroidism. PCP: Yasmine Gibbs ARNP Insurance: Medicaid, [employer] and Medicare Per ED RETAIL TEAM LEADER, another APS report (#[id number]) was placed. Reviewed chart and team rounds for pt's medical status and initial discharge needs. RETAIL TEAM LEADER met w/patient at bedside; introduced self and role. Pt was found sitting in chair, with chair alarm affixed on pt's hospital gown. Pt was alert and oriented to name and location. Pt confirms that he possesses a walker, shower chair and Life Alert necklace at home. RETAIL TEAM LEADER discussed evolving discharge plan with pt. Pt verbalized understanding regarding pending OT evaluation but still still insists that going home will be a safe disposition but is easily redirected when reminded of how he presented to the ED over the weekend. Pt confirms his brother, Júnior, lives in [place] and believes he only sees him occasionally. RETAIL TEAM LEADER inquired about pt's feelings around living with his brother or anyone else in the future, I have thought about it but I don't think my brother would want me to live with him. He has a lot to deal with with his . Pt declined any discharge needs at this time. Plan: Awaiting OT evaluation to determine patient's cognitive level of functioning. Anticipating discharging to home with 24/ assist vs. LTC. CM team will plan to follow clinical course closely for assessment of need and coordination of discharge plan. TAMMY Carpenter Discharge Planning/Care Management Discharge Planning Assessment Assigned Race Car Driver ROBIN Crawford DPOA/Assigned Designee Name Brother Shin (Bill) Contact Information [phone] Advance Directives? No Advance Directives on File No History Provided By Patient,Medical Record Has Patient been admitted in last 30 No days? Prior Living Arrangements Apartment/Condo Comment Per EMR and community automotive sales manager, pt had an eviction notice that was supposed to on 12.08. [facility] Cone Machine Operator, November, was able to have Housing Authority extend eviction until [facility] can secure more supportive housing . Household Members friend(s),none Type of transporation used prior to Relies on Others admit Comment Pt explains he has occasional transport from his brother for appointments but primarily utilzes [employer] ([employer] [employer]paratransit. Independent with ADL's No Is patient alert and oriented? Yes Needs Assistance With Bathing,Eating,Grooming,Meal Prep,Toileting,Managing Medications,Home Chores / Shopping Comment Per EMR, pt has not had a caregiver since April 2023 . Pt was recently released from the care of [facility] due to concern for pt's safety and welfare. Per EMR/ [facility], pt was confused and not safe at home, not taking care of self. Caregiver for Another No Community Services used prior to Physical Therapy,Occupational admission: Therapy,Home Health Aid,Home Delivered Meals,Transportation DME Already Rented / Owned Bath Bench,FWW / Walker Patient/Family Preference LTAC Barriers to Discharge Yes Comment Pt is currently not agreeable to plan for any living situation other than his current apartment. Per previous discussions with [employer], pt's memory is declining and forgets often why he is unable to return home to prior living arrangements. Discharge Plan [facility] Referrals Initiated Other Whiteboard Updated in Patient Room with Yes name and ext. # of Race Car Driver Please Provide Date Initial DC 12/11/23 Assessment Was Performed Next Review Type Continued Stay Review
[2023-12-11] MEDS: QUETIAPINE 25 MG TABLET 12.5 MG PO (20:50)
[2023-12-11] MEDS: DOCUSATE 100 MG CAPSULE PO (20:50)
[2023-12-11] MEDS: SENNOSIDES 8.6 MG TABLET PO (20:50)
[2023-12-12] MEDS: TRAZODONE 50 MG TABLET 200 MG PO ×2 (00:23→20:55)
[2023-12-12 07:00] VITALS: O2SAT 98
[2023-12-12 08:00] VITALS: BP 96/58; PULSE 60; RESP 14; TEMP 36.1; O2SAT 98
[2023-12-12 08:52] VITALS: BP 96/58; PULSE 60
[2023-12-12] MEDS: ENOXAPARIN 40 MG/0.4 ML SYRINGE SUBCUT (09:12)
--- NOTE | 2023-12-12 12:13 | PM.PN.1 ---
Subjective Subjective Interval history: 68 M admitted for failure to thrive, cognitive impairment, after failing multiple attempts at home health. Exam Vital Signs (past 8 hours): - 12/12/23 07:00 12/12/23 08:00 12/12/23 08:52 Temperature 97.0 F L Pulse Rate 60 60 Respiratory Rate 14 Blood Pressure 96/58 L 96/58 L Pulse Oximetry 98 98 Oxygen Delivery Method Room Air Oxygen Flow Rate 0 Oxygen Delivery Method Room Air Oxygen Flow Rate 0 Narrative Exam Narrative: Gen: No acute distress, oriented to person, place. CV: RRR no m/r/g Pulm: CTA b/l Abd: S NT ND Ext: trace edema b/l LE, no joint effusions. Objective Labs 12/09/23 18:15 12/09/23 18:15 [facility] Medical History Acute hyponatremia Intertrochanteric fracture of left hip Alcoholism Anoxic brain injury Essential hypertension Cardiomyopathy Paroxysmal atrial fibrillation Alcohol dependence Elevated liver function tests Pulmonary nodule (~07/2019) COPD (chronic obstructive pulmonary disease) Impaired vision GERD (gastroesophageal reflux disease) Hypothyroidism Eczema (2016) Chronic cough (1999) Dislocated elbow (2000) Dislocated shoulder (2001) Fractures (~1963) Cataracts, bilateral (2007) Surgical History History of repair of hiatal hernia Hx of hernia repair (1995) History of nasal surgery (1963) History of cataract removal with insertion of prosthetic lens Family History Father History of arteriosclerotic cardiovascular disease History of emphysema Mother Cancer Grandfather No problems noted. Grandmother Stroke Grandfather No problems noted. Grandmother No problems noted. Social History household members: friend(s) and none Smoking Status: Former smoker Tobacco: How many years used: 22 quit status: not considering quitting second hand exposure: No alcohol intake: former substance use type: does not use Assessment & Plan Assessment & Plan narrative: 1. Failure to thrive - PT / OT assessment, suspect in the setting of worsening cognitive impairment. No focal deficits to suggest infarcts. CT head negative for bleed - case management / social media project manager consulted. - repeated TTE given most recent echo was 2019, to see if any decrease in heart function is possibly contributing, though no clinical signs. 2. CHFrEF - most recent TTE was 2019, EF 50-55% markedly improved from prior - continue home coreg and losartan 3. Paroxysmal afib - presume not on anticoagulation due to fall risk. - continue home coreg. 4. hypothyroid - TSH unremarkable, continue home levothyroxine 75 mcg. 5. COPD wihtout exacerbation - replace home inhalers with formular equivalent nebulizers, duoneb BID and pulmicort BID with as needed albuterol 6. Dementia / cognitive impairment, likely related to chronic EtOH use - will formally assess with SLUMS with OT Code: Full, surrogate is patient's brother. DVT: Lovenox daily I have utilized all available immediate resources to obtain, update, or review the patient's current medications. Dispo: patient admitted under observation status. Likely will need dedicated intermodal truck driver placement pending above evaluations. Additional history obtained via discussions with case management and therapy team. These discussions contributed to the creation of the above assessment and plan. I have reviewed patient's presenting documentation and outpatient documentation, labs, and imaging personally.
--- NOTE | 2023-12-12 12:58 | OT.IP.EVAL ---
Past Medical History (Last Reviewed 12/11/23 @ 17:39 by Jamison Peres DO) Acute hyponatremia Alcohol dependence Alcoholism Anoxic brain injury Cardiomyopathy Cataracts, bilateral (2007) Chronic cough (1999) COPD (chronic obstructive pulmonary disease) Dislocated elbow (2000) Dislocated shoulder (2001) Eczema (2017) Elevated liver function tests Essential hypertension Fractures (~1963) GERD (gastroesophageal reflux disease) Hypothyroidism Impaired vision Intertrochanteric fracture of left hip Paroxysmal atrial fibrillation Pulmonary nodule (~07/2019) Surgical History (Last Reviewed 12/11/23 @ 17:39 by Jamison Peres DO) History of cataract removal with insertion of prosthetic lens History of nasal surgery (1963) History of repair of hiatal hernia Hx of hernia repair (1995) Occupational Therapy Inpatient Evaluation/Re-Eval M1 PT/OT-IP Prior Functional Status Start: 12/12/23 13:04 Freq: NEEDED Status: Active Protocol: Document 12/12/23 13:05 [facility] (Rec: 12/12/23 13:24 [facility] [id number]) Medical Review Prior Functional Status Medical History Reviewed Yes Communication able to make needs known Mobility and Gait pt stated that he was modified independent with mobility using 4WW but that he was not moving much at home Activities of Daily Living and IADL's Pt states has been able to care for himself, but based on EMS/APD pt is not been safe to care for himself and was found to be soiled and apartment in disarray. Social History Household Members friend(s),none Living Arrangements Apartment/Condo Number of Floors (Floors) One Floor Number of Stairs To Enter/Railing? pt lives on a 2nd level condo apartment with access to an elevator Home Environment Standard Height Toilet,Tub/ Shower,Elevator Home Equipment Four Wheel Walker,Shower Seat with Backrest,Shower Seat without Backrest,Grab Bars Near Toilet,Grab Bars In Shower M2 OT-IP Current Condition Start: 12/12/23 13:04 Freq: Status: Active Protocol: Document 12/12/23 13:05 [facility] (Rec: 12/12/23 13:24 [facility] [id number]) Occupational Therapy Current Condition Current Condition Evaluation Date 12/12/23 Treatment Diagnosis Failure to thrive Diagnosis Onset Date 12/11/23 M3 OT- IP Subjective and Pain Start: 12/12/23 13:04 Freq: Status: Active Protocol: Document 12/12/23 13:05 [facility] (Rec: 12/12/23 13:24 [facility] [id number]) OT- Subjective Occupational Therapy Visit Type Type Initial Evaluation Visit Start Time 12:15 Visit Stop Time 12:53 Occupational Therapy Visit Comments Patient Comments Pt agreed to do cognitive assessment and wanting to use the bathroom. Patient/Caregiver Goals Pt is adamant to go home. OT Pain Assessment Pain When Pain Assessed At Rest Pain Present Pain Present Denied Pain M4 OT- IP ADL's Start: 12/12/23 13:04 Freq: Status: Active Protocol: Document 12/12/23 13:05 [facility] (Rec: 12/12/23 13:24 [facility] [id number]) OT [id number] Comments OT Self-Feeding Comments Pt able to drink liquids but noticing occasional coughing when drinking fluids and wet sounding voice, notified pt's nurse. OT ADL-Grooming Comments OT Grooming Comments Pt refused to do initially, but agreed to wash his hands with a wash cloth after set-up . OT ADL-Oral Care Comments Oral Care Comments Pt refused. OT ADL-Dressing Comments OT Dressing Comments Pt refused as states too bloated to try at this time. OT ADL-Toileting General Evaluation Toileting Ability Standby Assistance Comments OT Toileting Comments Pt able to stand with the FWW to urinate with SBA for supervision. OT ADL-Bathing Comments OT Bathing Comments Not performed. M5 OT- IP IADL's Start: 12/12/23 13:04 Freq: Status: Active Protocol: Document 12/12/23 13:05 [facility] (Rec: 12/12/23 13:24 [facility] [id number]) OT-Instrumental Activities of Daily Living Deficits IADL Deficits Identified Deficits Home Safety Awareness Awareness of Need for Assistance at Home Decreased Awareness Ability to Problem Solve Emergency Able to Problem Solve Situations Home Safety Comments Pt able to answer all home safety situations with good accuracy. Medication Management Medication Management Comments Pt states uses an automatic pill dispenser. Money Management Money Management Comments Pt would benefit from assist. Meal Preparation Meal Preparation Comments Pt will benefit from assist. Wind Turbine Installer Wind Turbine Installer Comments Pt will benefit from assist. M6 OT- IP Functional Cognition Start: 12/12/23 13:04 Freq: Status: Active Protocol: Document 12/12/23 13:05 [facility] (Rec: 12/12/23 13:24 [facility] [id number]) Cognitive Factors Limiting Selfcare Function Cognitive Ability Level of Alertness Alert Patient Orientation Name,Year,Place,Situation Attention Span Ability Capable of Focused Attention, Capable of Sustained Attention Ability to Follow Commands Able to Follow One Step Commands Memory Description Short Term Impaired,Working Impaired Safety Awareness Underestimates Need for Assistance Problem Solving Ability Unable to Identify Errors, Needs Assist to Identify Solutions Cognitive Tests SLUMS Pt scored 18/30 which implies dementia. Pt able to states the year,state, add 20+3, able to recall 12 animals in one minute, able to recall 4/5 objects after times passed, not able to states a 4 digit number backwards, and not able to drw the numbers of the clock accurately in spacing and forgetting to write the 12, and not able to draw the hour hands correctly after time given, and able to answer 3/4 questions right after paragraph read. Cognitive Comments Cognitive Assessment Comments Pt having difficulty to be able to figure out how to take the straw out of the wrapping . Pt needing vc for FWW safety to keep the fww closer to him and in front of him for safety. OT- Vision and Hearing OT- Hearing Assessment OT- Hearing Assessment WFL,Hearing Impaired OT- Vision Assessment Occular Pursuits WFL Visual Convergence WFL Vision Assessment Comments At times a little [place] pending on his attention. M7 OT- IP Mobility and Balance Start: 12/12/23 13:04 Freq: Status: Active Protocol: Document 12/12/23 13:05 [facility] (Rec: 12/12/23 13:24 [facility] [id number]) OT- Bed Mobility Assessment Supine to Sit Supine to Sit Assist Standby Assistance Sit to Supine Sit to Supine Assist Standby Assistance Scooting Scooting to Edge of Bed Standby Assistance Scooting Up and Down in Bed Standby Assistance OT-Transfer Assessment Sit to and From Stand Sit to and from Stand Standby Assistance,Contact Guard Assistance Transfers Transfer Ability Standby Assistance,Contact Guard Assistance Technique Transfer Destination Bed,Chair,Toilet Transfer Technique Stand Step Pivot Devices Transfer Assistive Devices Gait Belt,Front Wheeled Walker Comments Mobility Comments Pt increased time to get up and use of momentum to assist at times. Pt occasional CGA for balance as pt tends to get the FWW too far in front of him. OT- Balance Assessment Sitting Balance and Reactions Static Sitting Balance Ability Good Dynamic Sitting Balance Ability Fair Standing Balance and Reactions Static Standing Balance Ability Fair Dynamic Standing Balance Ability Fair M8 OT- IP Objective Assessments Start: 12/12/23 13:04 Freq: Status: Active Protocol: Document 12/12/23 13:05 [facility] (Rec: 12/12/23 13:24 [facility] [id number]) OT Gross Range of Motion Upper Extremity Range of Motion Assessment Bilaterally Impaired OT Strength Upper Extremity Strength Assessment Bilaterally Impaired M9 OT- IP Assessment and Plan Start: 12/12/23 13:04 Freq: Status: Active Protocol: Document 12/12/23 13:05 [facility] (Rec: 12/12/23 13:24 [facility] [id number]) OT Summary Assessment and Plan Potential Rehabilitation Potential Fair Analytic Complexity at Evaluation Moderate Summary OT Impairments Range of Motion,Strength, Balance,Functional Cognition, Functional Mobility,Grooming, Dressing,Toileting,Bathing, Toilet Transfers,Shower Transfers Progress Towards Goals Slow Progress due to Medical Issues,Slow Progress due to Cognition Assessment Summary Pt MOD complexity and main barriers are decreased safety awareness and insistent on his care and wanting to go home. Pt scored 18/30 on the SLUMS which implies dementia. Pt is going home would benefit from 24/7 assist and home health versus LTC or memory care at this time. Pt states he feels that he is at his baseline and insistent that he can care for himself. Goals Self-Feeding Goal Independent Grooming Goal Independent Dressing Goal Independent Toileting Goal Standby Assistance Bathing Goal Standby Assistance Toilet Transfer Goal Standby Assistance Shower Transfer Goal Standby Assistance Days to Meet Goals 5 Frequency of Treatment Frequency Of Treatment Once a Day Treatment Plan OT Treatment Plan ADL Training,Functional Cognition Training,Functional Mobility,Patient/Family Education,Discharge Planning Other Treatment Recommendations and Next ACL cognitive assessment Treatment Focus Discharge Recommendations OT Discharge Recommendations Home with 24/7 Assist Available,Home Health,LTAC Home Equipment Needs FWW Transportation Needs at Discharge Private Vehicle,Wheelchair/ Cabulance
[2023-12-12] MEDS: LEVOTHYROXINE 75 MCG TABLET PO (13:57)
--- NOTE | 2023-12-12 14:06 | DIET.CONS ---
Dietary Consultation Note Admission Date: 12/11/2023 08:20 Assessment: 68 M admitted for failure to thrive. Nutrition consulted for weight loss and decreased food intake. Spoke with DINING ROOM HOSTESS regarding pt at home situation related to food access. Receives meals on wheels 1x/d, reports there may be trouble with pt getting up and getting food from door. Has been working with multiple community agencies for support. SLUMs score 18/30 per OT rosalva. Met with pt at bedside. Pt reports normal appetite but has been eating food very fast. Comes to meals very hungry. Denies weight loss or looser feeling clothes. 15% weight loss within 9 months (74.843 kg on 03/02/23 v. 63.503 kg on 12/09/23), non-severe but notable. Provided Ensure during visit as patient has these at home when available. He started drinking Ensure very fast. Prompted him to take break, set ensure down, and wait. Completed nutrition focused physical exam during this break. Diet recall: Main course of meals on wheels 5x/wk, does not eat the extra sides it comes with because it is too much food. Will have an Ensure if they are available, unsure on how often they are available Nutrition focused physical exam results: Muscle wasting: -Severe loss in temporalis -Moderate loss in deltoid/clavicle region -Severe loss in interosseous Subcutaneous fat loss: -Moderate loss in orbital fat pad -Moderate loss in buccal fat pad Ht: 177.8 cm Wt: 63.503 kg BMI: 20.0 UBW: 63.6 kg per pt Last BM: () MNA: 7 Jorge Score: 17 Diet: 12/10/23 Breakfast Dysphagia Diet Diet Modifications: May Advance Diet as Tolerated: Yes Safety Tray needed?: Yes Food Texture: Level 6-Soft & Bite-sized Liquid Consistency: Level 0 - Thin Nutrition Percent Meal Consumed 100% 12/11/23 14:15 Percent Meal Consumed 100% 12/11/23 10:41 Percent Meal Consumed 75% 12/10/23 17:20 Labs: RBC 4.55 X10^6/uL (4.5-5.9) 12/09/23 18:15 Hgb 14.6 g/dL (13.5-17.5) 12/09/23 18:15 Hct 42.4 % (41-53) 12/09/23 18:15 Creatinine 0.51 mg/dL (0.66-1.25) L 12/09/23 18:15 Nutrition Diagnosis: Moderate Chronic Protein Calorie Malnutrition r/t decreased ability to consume sufficient energy intake as evidenced by moderate to severe muscle wasting (temporalis, interosseous, deltoid, trapezius, pectoralis major) and moderate subcutaneous fat loss (orbital and buccal fat pads), SLUMs The patient is at much higher risk for medical and surgical complications because of their malnutrition. This increases the difficulty and complexity of medical and surgical interventions and increases the chances of poor outcomes such as morbidity and mortality. Interventions: 1. Ordered Ensure TID 2. Provided tips for slower eating EER: 3633-9999 kcals/day (25-30 kcals/kg per BMI) 80-90 g protein/day (1.25-1.4 g/kg per malnutrition) Monitoring/Evaluations: PO intakes, weight, ONS tolerance Electronically Signed by: Erika Acuna 12/12/23 14:06 Clinical Dietitian [address] [id number]
--- NOTE | 2023-12-12 16:26 | CM.DPC ---
DCP Continued: Reviewed EMR and team rounds for pt?s medical status. Per RN, pt has been calm and cooperative today. MANAGER INVESTMENT BANKING spoke with [facility] Valve Setter, Gregory Sorensen, in office and discussed plan of care. [facility] Valve Setter confirmed that [facility] Transportation Supervisor has been attempting to complete assessment for pt to access higher level of care at home. [facility] Valve Setter suggested that with new SLUMS assessment, this could also be used by [facility] to assist with placement. Per OT, pt participated in a cognitive assessment and scored a 18/30 on SLUMS; indicating dementia. MANAGER INVESTMENT BANKING called [facility] Transportation Supervisor, November Gordon (ph# [phone], ext [phone]) to discuss SLUMS score and plan for housing. [facility] CM stated she has not been able to complete assessment due to no caregiver and having a full case load. She reports she will staff with coil machine supervisor on who can complete assessment while pt is in hospital for higher level of care and notify DCP tomorrow morning, 4.16. Plan: Anticipating dc to LTC placement. CM Team following for [facility] to complete assessment as soon as possible to obtain higher level of care/resources for placement.
[2023-12-12 19:00] VITALS: O2SAT 96
[2023-12-12 20:00] VITALS: BP 124/76; PULSE 70; RESP 16; TEMP 36; O2SAT 96
[2023-12-12] MEDS: BUDESONIDE 0.5 MG/2 ML NEB INH (20:47)
[2023-12-12] MEDS: ALBUTEROL/IPRATROPIUM 3 ML AMPUL INH (20:48)
[2023-12-12] MEDS: QUETIAPINE 25 MG TABLET 12.5 MG PO (20:54)
[2023-12-12] MEDS: DOCUSATE 100 MG CAPSULE PO (20:54)
[2023-12-12] MEDS: SENNOSIDES 8.6 MG TABLET PO (20:55)
[2023-12-13 07:00] VITALS: O2SAT 98
--- NOTE | 2023-12-13 07:46 | P.PN_ITS ---
Subjective Subjective Interval history: Patient reports wanting to go home, and I don't understand why I'm here... I'm perfectly capable of caring for myself. OT worked with him again today and recommends 21/03 care. Exam Vital Signs (past 8 hours): Oxygen Delivery Method Room Air Oxygen Flow Rate 0 Narrative Exam Narrative: Gen: No acute distress, oriented to person, place. CV: RRR no m/r/g Pulm: CTA b/l Abd: S NT ND Ext: trace edema b/l LE, no joint effusions. Objective Labs 12/09/23 18:15 12/09/23 18:15 [facility] Medical History Acute hyponatremia Intertrochanteric fracture of left hip Alcoholism Anoxic brain injury Essential hypertension Cardiomyopathy Paroxysmal atrial fibrillation Alcohol dependence Elevated liver function tests Pulmonary nodule (~07/2019) COPD (chronic obstructive pulmonary disease) Impaired vision GERD (gastroesophageal reflux disease) Hypothyroidism Eczema (2016) Chronic cough (1999) Dislocated elbow (2000) Dislocated shoulder (2001) Fractures (~1963) Cataracts, bilateral (2007) Surgical History History of repair of hiatal hernia Hx of hernia repair (1995) History of nasal surgery (1963) History of cataract removal with insertion of prosthetic lens Family History Father History of arteriosclerotic cardiovascular disease History of emphysema Mother Cancer Grandfather No problems noted. Grandmother Stroke Grandfather No problems noted. Grandmother No problems noted. Social History household members: friend(s) and none Smoking Status: Former smoker Tobacco: How many years used: 22 quit status: not considering quitting second hand exposure: No alcohol intake: former substance use type: does not use Assessment & Plan Assessment & Plan narrative: 1. Failure to thrive - PT / OT assessment, suspect in the setting of worsening cognitive impairment. No focal deficits to suggest infarcts. CT head negative for bleed - case management / foster care social worker consulted. - repeated TTE given most recent echo was 2019, to see if any decrease in heart function is possibly contributing, though no clinical signs. 2. CHFrEF - most recent TTE was 2019, EF 50-55% markedly improved from prior - continue home coreg and losartan 3. Paroxysmal afib - presume not on anticoagulation due to fall risk. - continue home coreg. 4. hypothyroid - TSH unremarkable, continue home levothyroxine 75 mcg. 5. COPD wihtout exacerbation - replace home inhalers with formular equivalent nebulizers, duoneb BID and pulmicort BID with as needed albuterol 6. Dementia / cognitive impairment, likely related to chronic EtOH use - SLUMS of 18 with OT - OT recommending 24/7 care 7. Moderate Chronic Protein Calorie Malnutrition r/t decreased ability to consume sufficient energy intake as evidenced by moderate to severe muscle wasting (temporalis, interosseous, deltoid, trapezius, pectoralis major) and moderate subcutaneous fat loss (orbital and buccal fat pads), SLUMs Code: Full, surrogate is patient's brother. DVT: Lovenox daily I have utilized all available immediate resources to obtain, update, or review the patient's current medications. Dispo: Needs 24/7 care in assisted living vs adult family home. SENIOR PUBLICATIONS SPECIALIST working on this. Discharge unclear. Additional history obtained via discussions with case management and therapy team. These discussions contributed to the creation of the above assessment and plan. I have reviewed patient's presenting documentation and outpatient documentation, labs, and imaging personally.
[2023-12-13] MEDS: ALBUTEROL/IPRATROPIUM 3 ML AMPUL INH (07:55)
[2023-12-13] MEDS: BUDESONIDE 0.5 MG/2 ML NEB INH (07:55)
[2023-12-13 08:00] VITALS: BP 123/84; PULSE 56; PULSE 71; RESP 16; TEMP 36.5; O2SAT 100
[2023-12-13] MEDS: ACETAMINOPHEN 325 MG TABLET 650 MG PO (08:41)
[2023-12-13] MEDS: DOCUSATE 100 MG CAPSULE PO ×2 (08:42→21:16)
[2023-12-13] MEDS: LEVOTHYROXINE 75 MCG TABLET PO (08:42)
[2023-12-13] MEDS: ENOXAPARIN 40 MG/0.4 ML SYRINGE SUBCUT (08:42)
--- NOTE | 2023-12-13 13:13 | CM.DPC ---
DCP Cont: Per MD, pt remains medically stable to discharge once safe d/c plan determined. Pt requesting to discharge back to his place. Per PT, pt at baseline and signed off. Per TORSTEN RICO . ZEESHAN spoke to pt's assigned MELCHOR CM November ([phone]) who states since pt remains in the hospital she will have to transfer pt's case to [facility] to be assigned to a protective services case worker to complete the LTC assessment for placement outside of the home. ZEESHAN requested November complete the transfer today as it will take time for [facility] to assign a worker and schedule assessment. ZEESHAN emailed the Station Engineer for [facility] Vanessa Longoria ([email or web address]) requesting urgent assignment and expedited scheduling for LTC assessment. ZEESHAN called pt's brother Nicko Simpson (Bill) ([phone]) and explained role and he confirms that pt had been doing well at home when he had his previous CG Ellyn who helped manage pt's meds and seemed to have good rapport with him but she had difficult and had to stop being pt's CG and since that time (about 8 months) pt has been without a consistent CG. Pt lived with his brother Júnior for about 4 years prior to moving into his own place in [place]. Júnoir states he has Financial DPOA but that pt refuses to give anyone Medical POA. Pt only has $1300 a month from social security. ZEESHAN discussed frankly that if pt could be discharged from the hospital today or tomorrow then his current MELCHOR CM November could complete the scheduled LTC assessment this week as previously scheduled and if pt remains in the hospital then it could take a couple weeks for his case to be reassigned and assessment scheduled. ZEESHAN discussed possible options of family staying with pt at his apt to assist while awaiting the assessment this week, pt going to stay with family in their home, family paying privately for in-home caregivers or paying for Respite Stay. Brother states he and his are in the middle of selling their business and buying property and they have a sister and her who live in [place] but states any of these options are currently out of the question at this time. ZEESHAN discussed that pt does not have medical reason to be hospital level of care and likely will get insurance denial and pt could then receive a bill from the hospital which is significantly more expensive than PP CGs or PP Respite Stay. Brother still declines options above for patient to discharge the hospital. Pt currently not appropriate for SNF stay under his [facility] as pt baseline and LTC placement need/penitentiary care. ROBIN Alejandro
--- NOTE | 2023-12-13 16:36 | OT.IP.TRT ---
Occupational Therapy Treatment Note M2 OT-IP Current Condition Start: 12/12/23 13:04 Freq: Status: Active Protocol: Document 12/12/23 13:05 [facility] (Rec: 12/12/23 13:24 [facility] [id number]) Occupational Therapy Current Condition Current Condition Evaluation Date 12/12/23 Treatment Diagnosis Failure to thrive Diagnosis Onset Date 12/11/23 M3 OT- IP Subjective and Pain Start: 12/12/23 13:04 Freq: Status: Active Protocol: Document 12/13/23 16:36 [facility] (Rec: 12/13/23 16:51 [facility] [id number]) OT- Subjective Occupational Therapy Visit Type Type Treatment Note Visit Start Time 16:13 Visit Stop Time 16:36 Occupational Therapy Visit Comments Patient Comments Pt having to use the urinal when OT came in to see the pt. Patient/Caregiver Goals Pt is insistent to go home. M4 OT- IP ADL's Start: 12/12/23 13:04 Freq: Status: Active Protocol: Document 12/13/23 16:36 [facility] (Rec: 12/13/23 16:51 [facility] [id number]) OT [id number] Comments OT Self-Feeding Comments Pt still having occasional coughing when drinking liquids , nursing states request a SPOUT POSITIONER order for the pt. OT ADL-Toileting Comments OT Toileting Comments Pt CGA to stand and assist for set-up for urinal bottle and hygiene needs. M5 OT- IP IADL's Start: 12/12/23 13:04 Freq: Status: Active Protocol: Document 12/12/23 13:05 [facility] (Rec: 12/12/23 13:24 [facility] [id number]) OT-Instrumental Activities of Daily Living Deficits IADL Deficits Identified Deficits Home Safety Awareness Awareness of Need for Assistance at Home Decreased Awareness Ability to Problem Solve Emergency Able to Problem Solve Situations Home Safety Comments Pt able to answer all home safety situations with good accuracy. Medication Management Medication Management Comments Pt states uses an automatic pill dispenser. Money Management Money Management Comments Pt would benefit from assist. Meal Preparation Meal Preparation Comments Pt will benefit from assist. Basin Cleaner Basin Cleaner Comments Pt will benefit from assist. M6 OT- IP Functional Cognition Start: 12/12/23 13:04 Freq: Status: Active Protocol: Document 12/13/23 16:36 [facility] (Rec: 12/13/23 16:51 [facility] [id number]) Cognitive Factors Limiting Selfcare Function Cognitive Ability Level of Alertness Confusional State Patient Orientation Name Attention Span Ability Capable of Focused Attention, Unable to Sustain Attention Ability to Follow Commands Able to Follow One Step Commands with Increased Time, Able to Follow One Step Commands with Repetition Memory Description Short Term Impaired,Working Impaired Safety Awareness Underestimates Need for Assistance Problem Solving Ability Unable to Identify Errors, Needs Assist to Identify Solutions Executive Function Ability Unable to Hold Focus,Unable to Switch Focus,Unable to Filter Distractions,Unable to Make Plans,Unable to Organize Plans ,Unable to Remember Details Cognitive Comments Cognitive Assessment Comments Pt scored 3.2 out of 6.0 on the Large Vick Cognitive Level Screen which implies pt needing 24 hour supervision to provide supplies, organize, sequence, check results, and remove hazards through steps of all ADL's, meals/meds, provided and monitored. Pt also needing 24 hour care to complete motions for acceptable level of hygiene. M7 OT- IP Mobility and Balance Start: 12/12/23 13:04 Freq: Status: Active Protocol: Document 12/13/23 16:36 [facility] (Rec: 12/13/23 16:51 [facility] [id number]) OT-Transfer Assessment Sit to and From Stand Sit to and from Stand Standby Assistance,Contact Guard Assistance Transfers Transfer Ability Standby Assistance,Contact Guard Assistance OT- Balance Assessment Sitting Balance and Reactions Static Sitting Balance Ability Good Dynamic Sitting Balance Ability Fair Standing Balance and Reactions Static Standing Balance Ability Fair M8 OT- IP Objective Assessments Start: 12/12/23 13:04 Freq: Status: Active Protocol: Document 12/12/23 13:05 [facility] (Rec: 12/12/23 13:24 [facility] [id number]) OT Gross Range of Motion Upper Extremity Range of Motion Assessment Bilaterally Impaired OT Strength Upper Extremity Strength Assessment Bilaterally Impaired M9 OT- IP Assessment and Plan Start: 12/12/23 13:04 Freq: Status: Active Protocol: Document 12/13/23 16:36 [facility] (Rec: 12/13/23 16:51 [facility] [id number]) OT Summary Assessment and Plan Potential Rehabilitation Potential Poor Analytic Complexity at Evaluation Moderate Summary OT Impairments Range of Motion,Strength, Balance,Functional Cognition, Functional Mobility,Grooming, Dressing,Toileting,Bathing, Toilet Transfers,Shower Transfers Progress Towards Goals Slow Progress due to Medical Issues,Slow Progress due to Cognition Assessment Summary Pt scored 3.2 out of 6.0 on the Large Vick Cognitive Level Screen which implies pt needing 24 hour supervision to provide supplies, organize, sequence, check results, and remove hazards through steps of all ADL's, meals/meds, provided and monitored. Pt also needing 24 hour care to complete motions for acceptable level of hygiene. At this time pt is not safe to be able to care for himself and will benefit from LTC otherwise 24/7 assistance. Able to talk to the hospitalist to regarding his cognitive status and ok to discharge from OT services. Discharge Recommendations OT Discharge Recommendations Home with 24/7 Assist Available,LTAC
[2023-12-13 19:00] VITALS: BP 107/64; PULSE 66; RESP 16; TEMP 35.8; O2SAT 97
[2023-12-13 20:15] VITALS: PULSE 40; RESP 18; O2SAT 99
[2023-12-13] MEDS: QUETIAPINE 25 MG TABLET 12.5 MG PO (21:16)
[2023-12-13] MEDS: SODIUM CHLORIDE 0.9% FLUSH 10 ML IV (21:17)
[2023-12-13] MEDS: SENNOSIDES 8.6 MG TABLET PO (21:17)
--- NOTE | 2023-12-14 00:26 | PC.NURSE ---
Patient alert; is oriented except did not know month, day of week, day of month or why he is in the hospital. Breath sounds CTA with RA sat of 97%. HR irregular with rate of 88 apically. Denied nausea. BT present and did have a BM tonight. Is voiding frequently but denies dysuria; urine is clear, light yellow. Is able to turn himself in bed and gets up to bathroom/walk in duran with SBA + walker; does have decreased ROM in bilateral LE and leans to left with sitting/walking. Has pressure areas on bilateral hips/buttocks which are blanchable. Multiple scratches on bilateral hips/buttocks. When asked if he has had any falls he denies but per MD note he has history of frequent falls. Denied pain. Fall risk score is high and patient is impulsive so bed alarm is activated.
[2023-12-14] MEDS: LEVOTHYROXINE 75 MCG TABLET PO (05:54)
[2023-12-14 07:00] VITALS: O2SAT 95
[2023-12-14] MEDS: ENOXAPARIN 40 MG/0.4 ML SYRINGE SUBCUT (09:03)
[2023-12-14] MEDS: SODIUM CHLORIDE 0.9% FLUSH 10 ML IV (09:04)
[2023-12-14 09:09] VITALS: PULSE 73; O2SAT 97
[2023-12-14] MEDS: BUDESONIDE 0.5 MG/2 ML NEB INH (09:09)
[2023-12-14] MEDS: ALBUTEROL/IPRATROPIUM 3 ML AMPUL INH (09:09)
[2023-12-14] MEDS: carvediloL 3.125 MG TABLET PO ×2 (09:15→20:17)
[2023-12-14 09:20] VITALS: BP 139/73; PULSE 72; RESP 14; TEMP 36.2; O2SAT 95
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
--- NOTE | 2023-12-14 15:01 | CM.DPC ---
DCP Cont. Reviewed EMR and team rounds for status updates. This CAMPUS RECRUITING COORDINATOR contacted pt's [facility] catalytic case operator and requested an expedited functional assessment be communicated to the Acute Hospital Team that pt is being assigned to . This transfer is actually happening today, so we should have an update as to next steps in the next few days.
--- NOTE | 2023-12-14 18:06 | P.PN_ITS ---
Subjective Subjective Interval history: Patient tired of being in the hospital. Speech evaluated and changed to minced and moist diet. Exam Vital Signs (past 8 hours): Oxygen Delivery Method Room Air Oxygen Flow Rate 0 Narrative Exam Narrative: Gen: No acute distress, oriented to person, place. CV: RRR no m/r/g Pulm: CTA b/l Abd: S NT ND Ext: trace edema b/l LE, no joint effusions. Objective Labs 12/09/23 18:15 12/09/23 18:15 [facility] Medical History Acute hyponatremia Intertrochanteric fracture of left hip Alcoholism Anoxic brain injury Essential hypertension Cardiomyopathy Paroxysmal atrial fibrillation Alcohol dependence Elevated liver function tests Pulmonary nodule (~07/2019) COPD (chronic obstructive pulmonary disease) Impaired vision GERD (gastroesophageal reflux disease) Hypothyroidism Eczema (2016) Chronic cough (1999) Dislocated elbow (2000) Dislocated shoulder (2001) Fractures (~1963) Cataracts, bilateral (2007) Surgical History History of repair of hiatal hernia Hx of hernia repair (1995) History of nasal surgery (1963) History of cataract removal with insertion of prosthetic lens Family History Father History of arteriosclerotic cardiovascular disease History of emphysema Mother Cancer Grandfather No problems noted. Grandmother Stroke Grandfather No problems noted. Grandmother No problems noted. Social History household members: friend(s) and none Smoking Status: Former smoker Tobacco: How many years used: 22 quit status: not considering quitting second hand exposure: No alcohol intake: former substance use type: does not use Assessment & Plan Assessment & Plan narrative: 1. Failure to thrive - PT / OT assessment, suspect in the setting of worsening cognitive impairment. No focal deficits to suggest infarcts. CT head negative for bleed - case management / community mental health social worker consulted. - repeated TTE given most recent echo was 2019, to see if any decrease in heart function is possibly contributing, though no clinical signs. 2. CHFrEF - most recent TTE was 2019, EF 50-55% markedly improved from prior - continue home coreg and losartan 3. Paroxysmal afib - presume not on anticoagulation due to fall risk. - continue home coreg. 4. hypothyroid - TSH unremarkable, continue home levothyroxine 75 mcg. 5. COPD wihtout exacerbation - replace home inhalers with formular equivalent nebulizers, duoneb BID and pulmicort BID with as needed albuterol 6. Dementia / cognitive impairment, likely related to chronic EtOH use - SLUMS of 18 with OT - OT recommending 24/7 care 7. Moderate Chronic Protein Calorie Malnutrition r/t decreased ability to consume sufficient energy intake as evidenced by moderate to severe muscle wasting (temporalis, interosseous, deltoid, trapezius, pectoralis major) and moderate subcutaneous fat loss (orbital and buccal fat pads), SLUMs Code: Full, surrogate is patient's brother. DVT: Lovenox daily I have utilized all available immediate resources to obtain, update, or review the patient's current medications. Dispo: Needs 24/7 care in assisted living vs adult family home. OR SCRUB TECH working on this. Discharge unclear. Additional history obtained via discussions with case management and therapy team. These discussions contributed to the creation of the above assessment and plan. I have reviewed patient's presenting documentation and outpatient documentation, labs, and imaging personally.
--- NOTE | 2023-12-14 18:52 | PC.NURSE ---
Pt has money with him, in his room in a plastic bag. He reports it is 1200 dollars but he didn't allow a counting to confirm. Spoke with pt about locking up the money in the safe for safekeeping. He declined. Reminded him, he does sleep hard and doesn't always arouse when someone comes in. Had Martha WATKINS speak to pt about the money he is keeping at the bedside. He declined to her as well to lock it up. The money remains at the bedside. He is adament about keeping the money with him.
[2023-12-14 20:17] VITALS: BP 108/61; PULSE 74
[2023-12-14] MEDS: DOCUSATE 100 MG CAPSULE PO (20:17)
[2023-12-14] MEDS: QUETIAPINE 25 MG TABLET 12.5 MG PO (20:17)
[2023-12-14] MEDS: SENNOSIDES 8.6 MG TABLET PO (20:17)
[2023-12-14 20:47] VITALS: BP 108/61; PULSE 74; RESP 17; TEMP 36.7; O2SAT 96
[2023-12-15] VITALS (8 sets, daily range): BP systolic 108–134; BP diastolic 54–62; PULSE 60–82; RESP 16–20; TEMP 36.4–36.8; O2SAT 95–99
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
[2023-12-15] MEDS: LEVOTHYROXINE 75 MCG TABLET PO (06:18)
[2023-12-15] MEDS: ALBUTEROL/IPRATROPIUM 3 ML AMPUL INH ×2 (09:08→19:49)
[2023-12-15] MEDS: BUDESONIDE 0.5 MG/2 ML NEB INH ×2 (09:08→19:49)
[2023-12-15] MEDS: carvediloL 3.125 MG TABLET PO ×2 (10:00→20:15)
[2023-12-15] MEDS: DOCUSATE 100 MG CAPSULE PO ×2 (10:00→20:15)
--- NOTE | 2023-12-15 10:00 | SLP.IPNOTE ---
Attempted to see pt for PO trials this AM. Pt ate breakfast and not hungry. Will re-attempt with lunch tray.
[2023-12-15] MEDS: ENOXAPARIN 40 MG/0.4 ML SYRINGE SUBCUT (10:07)
--- NOTE | 2023-12-15 14:49 | SLP.IPNOTE ---
ST unable to see pt with a meal today. Nursing states no overt s/sx swallowing difficulties today. Based on initial evaluation with ST (Lena Grajeda), the following recommendations/notes are still in place: 1. Pt needs reminders to slow down pace of intake. Intake may be impulsive and with limited safety awareness due to cognitive deficits. 2. Pt has increased aspiration risk due to reduced safety awareness with meals. 3. Continue minced and moist solids, thin liquids. 4. Meds as tolerated. 5. Close supervision for meals. 6. Reduce environmental distractions at mealtime (turn off TV, etc) 7. Set up assistance before meals 8. Assistance with oral care after meals
--- NOTE | 2023-12-15 15:51 | P.PN_ITS ---
Subjective Subjective Interval history: No complaints Exam Vital Signs (past 8 hours): - 12/15/23 09:08 12/15/23 10:00 Pulse Rate 76 76 Respiratory Rate 20 Blood Pressure 108/61 Pulse Oximetry 96 Oxygen Delivery Method Room Air Oxygen Delivery Method Room Air Oxygen Flow Rate 0 Narrative Exam Narrative: Gen: No acute distress, oriented to person, place. CV: RRR no m/r/g Pulm: CTA b/l Abd: S NT ND Ext: trace edema b/l LE, no joint effusions. Objective Labs 12/09/23 18:15 12/09/23 18:15 [facility] Medical History Acute hyponatremia Intertrochanteric fracture of left hip Alcoholism Anoxic brain injury Essential hypertension Cardiomyopathy Paroxysmal atrial fibrillation Alcohol dependence Elevated liver function tests Pulmonary nodule (~07/2019) COPD (chronic obstructive pulmonary disease) Impaired vision GERD (gastroesophageal reflux disease) Hypothyroidism Eczema (2016) Chronic cough (1999) Dislocated elbow (2000) Dislocated shoulder (2001) Fractures (~1963) Cataracts, bilateral (2007) Surgical History History of repair of hiatal hernia Hx of hernia repair (1995) History of nasal surgery (1963) History of cataract removal with insertion of prosthetic lens Family History Father History of arteriosclerotic cardiovascular disease History of emphysema Mother Cancer Grandfather No problems noted. Grandmother Stroke Grandfather No problems noted. Grandmother No problems noted. Social History household members: friend(s) and none Smoking Status: Former smoker Tobacco: How many years used: 22 quit status: not considering quitting second hand exposure: No alcohol intake: former substance use type: does not use Assessment & Plan Assessment & Plan narrative: 1. Failure to thrive - PT / OT assessment, suspect in the setting of worsening cognitive impairment. No focal deficits to suggest infarcts. CT head negative for bleed - case management / social services analyst consulted. - repeated TTE given most recent echo was 2019, to see if any decrease in heart function is possibly contributing, though no clinical signs. 2. CHFrEF - most recent TTE was 2019, EF 50-55% markedly improved from prior - continue home coreg and losartan 3. Paroxysmal afib - presume not on anticoagulation due to fall risk. - continue home coreg. 4. hypothyroid - TSH unremarkable, continue home levothyroxine 75 mcg. 5. COPD wihtout exacerbation - replace home inhalers with formular equivalent nebulizers, duoneb BID and pulmicort BID with as needed albuterol 6. Dementia / cognitive impairment, likely related to chronic EtOH use - SLUMS of 18 with OT - OT recommending 24/7 care 7. Moderate Chronic Protein Calorie Malnutrition r/t decreased ability to consume sufficient energy intake as evidenced by moderate to severe muscle wasting (temporalis, interosseous, deltoid, trapezius, pectoralis major) and moderate subcutaneous fat loss (orbital and buccal fat pads), SLUMs Code: Full, surrogate is patient's brother. DVT: Lovenox daily I have utilized all available immediate resources to obtain, update, or review the patient's current medications. Dispo: Needs 24/7 care in assisted living vs adult family home. SOLAR ENERGY ENGINEER working on this. Discharge unclear. Additional history obtained via discussions with case management and therapy team. These discussions contributed to the creation of the above assessment and plan. I have reviewed patient's presenting documentation and outpatient documentation, labs, and imaging personally.
[2023-12-15] MEDS: QUETIAPINE 25 MG TABLET 12.5 MG PO (20:14)
[2023-12-15] MEDS: SENNOSIDES 8.6 MG TABLET PO (20:15)
[2023-12-15] MEDS: TRAZODONE 50 MG TABLET 200 MG PO (20:16)
[2023-12-16] VITALS (8 sets, daily range): BP systolic 100–126; BP diastolic 42–66; PULSE 50–81; RESP 16–18; TEMP 36.4–36.7; O2SAT 95–98
[2023-12-16] MEDS: LEVOTHYROXINE 75 MCG TABLET PO (05:45)
[2023-12-16] MEDS: ALBUTEROL/IPRATROPIUM 3 ML AMPUL INH ×2 (09:13→20:25)
[2023-12-16] MEDS: BUDESONIDE 0.5 MG/2 ML NEB INH ×2 (09:13→20:25)
--- NOTE | 2023-12-16 10:30 | PM.PN.1 ---
Subjective Subjective Interval history: No complaints Exam Vital Signs (past 8 hours): - 12/16/23 07:00 12/16/23 09:13 Temperature 98.0 F Pulse Rate 72 Respiratory Rate 18 Blood Pressure 106/42 L Pulse Oximetry 98 Oxygen Delivery Method Room Air Oxygen Delivery Method Room Air Oxygen Flow Rate 0 Narrative Exam Narrative: Gen: No acute distress, oriented to person, place. CV: RRR no m/r/g Pulm: CTA b/l Abd: S NT ND Ext: trace edema b/l LE, no joint effusions. Objective Labs 12/09/23 18:15 12/09/23 18:15 [facility] Medical History Acute hyponatremia Intertrochanteric fracture of left hip Alcoholism Anoxic brain injury Essential hypertension Cardiomyopathy Paroxysmal atrial fibrillation Alcohol dependence Elevated liver function tests Pulmonary nodule (~07/2019) COPD (chronic obstructive pulmonary disease) Impaired vision GERD (gastroesophageal reflux disease) Hypothyroidism Eczema (2016) Chronic cough (1999) Dislocated elbow (2000) Dislocated shoulder (2001) Fractures (~1963) Cataracts, bilateral (2007) Surgical History History of repair of hiatal hernia Hx of hernia repair (1995) History of nasal surgery (1963) History of cataract removal with insertion of prosthetic lens Family History Father History of arteriosclerotic cardiovascular disease History of emphysema Mother Cancer Grandfather No problems noted. Grandmother Stroke Grandfather No problems noted. Grandmother No problems noted. Social History household members: friend(s) and none Smoking Status: Former smoker Tobacco: How many years used: 22 quit status: not considering quitting second hand exposure: No alcohol intake: former substance use type: does not use Assessment & Plan Assessment & Plan narrative: 1. Failure to thrive - PT / OT assessment, suspect in the setting of worsening cognitive impairment. No focal deficits to suggest infarcts. CT head negative for bleed - case management / hospice social worker consulted. - repeated TTE given most recent echo was 2019, to see if any decrease in heart function is possibly contributing, though no clinical signs. 2. CHFrEF - most recent TTE was 2019, EF 50-55% markedly improved from prior - continue home coreg and losartan 3. Paroxysmal afib - presume not on anticoagulation due to fall risk. - continue home coreg. 4. hypothyroid - TSH unremarkable, continue home levothyroxine 75 mcg. 5. COPD wihtout exacerbation - replace home inhalers with formular equivalent nebulizers, duoneb BID and pulmicort BID with as needed albuterol 6. Dementia / cognitive impairment, likely related to chronic EtOH use - SLUMS of 18 with OT - OT recommending 24/7 care 7. Moderate Chronic Protein Calorie Malnutrition r/t decreased ability to consume sufficient energy intake as evidenced by moderate to severe muscle wasting (temporalis, interosseous, deltoid, trapezius, pectoralis major) and moderate subcutaneous fat loss (orbital and buccal fat pads), SLUMs Code: Full, surrogate is patient's brother. DVT: Lovenox daily I have utilized all available immediate resources to obtain, update, or review the patient's current medications. Dispo: Needs 24/7 care in assisted living vs adult family home. FURNACE HELPER working on this. Discharge unclear. Additional history obtained via discussions with case management and therapy team. These discussions contributed to the creation of the above assessment and plan. I have reviewed patient's presenting documentation and outpatient documentation, labs, and imaging personally.
[2023-12-16] MEDS: carvediloL 3.125 MG TABLET PO ×2 (11:04→22:20)
[2023-12-16] MEDS: ENOXAPARIN 40 MG/0.4 ML SYRINGE SUBCUT (11:04)
[2023-12-16] MEDS: DOCUSATE 100 MG CAPSULE PO ×2 (11:06→20:13)
[2023-12-16] MEDS: SIMETHICONE 80 MG TABLET PO (18:49)
[2023-12-16] MEDS: SENNOSIDES 8.6 MG TABLET PO (20:13)
[2023-12-16] MEDS: QUETIAPINE 25 MG TABLET 12.5 MG PO (20:13)
[2023-12-17 05:59] LABS: Add Manual Diff / Slide Review NO; Basophils Absolute Auto 100 /uL (0-100); Basophils Percent Auto 1.2 % (0-2); Eosinophils Absolute Auto 300 /uL (0-450); Eosinophils Percent Auto 4.9 % (2-4); Hematocrit 36.8 % (41-53); Hemoglobin 12.6 g/dL (13.5-17.5); Lymphocytes Absolute Auto 1700 /uL (1100-4500); Lymphocytes Percent Auto 27.9 % (25-40); Mean Corpuscular HGB Conc 34.1 % (30-36); Mean Corpuscular Hemoglobin 31.7 PG (26-34); Mean Corpuscular Volume 92.9 fL (80-100); Monocytes Absolute Auto 900 /uL (0-900); Monocytes Percent Auto 14.7 % (3-14); Neutrophils Absolute Auto 3100 /uL (1500-7000); Neutrophils Percent Auto 51.3 % (50-75); Platelet Count 202 X10^3/uL (150-400); Red Blood Cell Count 3.97 X10^6/uL (4.5-5.9); Red Cell Distribution Width 13.7 % (11.6-14.8)
--- NOTE | 2023-12-17 06:12 | PC.NURSE ---
Bladder scan @ 530, result was 226ml. RN notified.
[2023-12-17 06:14] LABS: BUN Creatinine Ratio 33.3 (6-22); Blood Urea Nitrogen 14 mg/dL (9-20); Calcium 8.3 mg/dL (8.4-10.2); Carbon Dioxide 30 mmol/L (22-32); Chloride 102 mmol/L (98-107); Estimated Glomerular Filt Rate > 60 mL/min (>60); Glucose 89 mg/dL (80-110); HEMOLYSIS < 15 (0-50); Potassium 4.3 mmol/L (3.4-5.1); Sodium 133 mmol/L (137-145)
[2023-12-17] MEDS: LEVOTHYROXINE 75 MCG TABLET PO (07:17)
[2023-12-17 08:00] VITALS: BP 151/77; PULSE 79; RESP 16; TEMP 36.3; O2SAT 99
[2023-12-17 09:07] VITALS: BP 151/77; PULSE 76
[2023-12-17] MEDS: DOCUSATE 100 MG CAPSULE PO ×2 (09:07→20:33)
[2023-12-17] MEDS: ENOXAPARIN 40 MG/0.4 ML SYRINGE SUBCUT (09:07)
[2023-12-17] MEDS: carvediloL 3.125 MG TABLET PO (09:07)
--- NOTE | 2023-12-17 09:36 | CM.DPC ---
DCP Cont. Reviewed EMR and team rounds for status updates. This TRAINING DEVELOPMENT MANAGER is following closely for updates from [facility] re: status of functional assessment for placement. Will f/u with assigned case management assistant on Tuesday to clarify where things are at in this process. No further changes at this time.
--- NOTE | 2023-12-17 10:29 | ST.IPDYTX ---
Visit Care Team Role Provider Type Yasmine Gibbs RN Primary Care Provider Non-Staff Specialty: Family Practice Address: [address] [place] [address], [id number] Email: Hemalatha Hand DO Emergency Provider Physician Referring Provider Specialty: Emergency Medicine Address: [address] [place] [address], [id number] Email: [email or web address] Admit Provider Physician Attending Provider Specialty: Internal Medicine Address: [address] [place] [address], [address] Email: [email or web address] [email or web address] SPECIALIST Dysphagia Treatment SURGERY SPECIALIST Dysphagia Treatment Start: 12/14/23 10:20 Freq: Status: Active Protocol: Document 12/17/23 10:23 MG (Rec: 12/17/23 10:29 MG [id number]) Dysphagia Treatment Session Time Visit Start Time 09:30 Visit Stop Time 09:40 Total Visit Minutes 10 Visit Information Visit Number 2 Setting Assessment Location Outpatient Care Patient Information Identification Type Name,ID Wristband Subjective Observations Pt was in a reclined position in bed but agreeable to SURGERY SPECIALIST entering the room. Pt reported to this SURGERY SPECIALIST that he was in a bad mood due to his want to go back home. Treatment Liquids Trialed Thin (IDDSI 0) Solids Trialed Minced & Moist (IDDSI 5) Administration Type Tea Spoon,Cup Single Sip,Self- Feeding Oral Strategies Upright at 90 degrees, Controlled Bite/Sip Size Pharyngeal Strategies Small Bites and Sips Additional Dysphagia Treatment Independent in eating Strategies Treatment Activities Per nurse, the pt finished his breakfast and did not have any overt s/sx of aspiration at that time. The pt refused to participate in PO trials or exercises with this SURGERY SPECIALIST due to poor mood. SURGERY SPECIALIST recommended continuing his current diet orders and the pt was agreeable to that. The IDDSI Framework Protocol: IDDSI.1 Assessment Patient Response to Treatment Good Assessment of Improvement In previous notes, the pt appears to be impulsive and requires reminders to utilize strategies. It is encouraging to note that he completed a meal without overt s/sx of aspiration at this time. Recommendations Recommendations Continue Current Diet Liquids Order Thin (IDDSI 0) Diet Order Minced & Moist (IDDSI 5) Medication Recommendations As Tolerated,Whole in Carrier, Crushed in Carrier Additional Dietary Needs Controlled Sips,Reminders to Use Strategies Aspiration Precautions Additional Precautions Slow presentation to the pt, recline pt's bed no less than 40 degrees Treatment Plan Placement Recommendation after Discharge [facility] Facility Appropriate for Continued Therapy Yes Therapy Recommendations Patient is being discharged to SNF most likely. Recommend ongoing SURGERY SPECIALIST at SNF. Dysphagia Goals 1) Pt's diet texture will improve to least restricted level without s/sx of aspiration 2) Base of tongue exercises will be introduced to increase forward movement of hyoid 3) Safe swallow strategies will be introduced to the pt to reduce risk of aspiration. 4) Staff education for implementing safe swallow strategies.
--- NOTE | 2023-12-17 12:01 | P.PN_ITS ---
Subjective Subjective Interval history: Patient knows the month, year, president and days of the week backwards. Spoke with his brother Júnior who is concerned about his diagnosis of dementia. He agrees that patient cannot go home until he has caregiving, which patient nor Bill can afford. BOAT FUELER still working on [facility] vs LTC. Exam Vital Signs (past 8 hours): - 12/17/23 08:00 12/17/23 09:07 Temperature 97.3 F L Pulse Rate 79 76 Respiratory Rate 16 Blood Pressure 151/77 H 151/77 H Pulse Oximetry 99 Fraction of Inspired Oxygen 21 SaO2/FiO2 Ratio 452 Oxygen Delivery Method Room Air Oxygen Flow Rate 0 Narrative Exam Narrative: Gen: No acute distress, oriented to person, time, and place. CV: RRR no m/r/g Pulm: CTA b/l Abd: S NT ND Ext: trace edema b/l LE, no joint effusions. Objective Labs 12/17/23 05:28 12/17/23 05:28 Labs: Laboratory Results - last 24 hr 12/17/23 05:28 WBC 6.0 RBC 3.97 L Hgb 12.6 L Hct 36.8 L MCV 92.9 MCH 31.7 MCHC 34.1 RDW 13.7 Plt Count 202 Neut % (Auto) 51.3 Lymph % (Auto) 27.9 [place] % (Auto) 14.7 H Eos % (Auto) 4.9 H Baso % (Auto) 1.2 Neut # (Auto) 3100 Lymph # (Auto) 1700 [place] # (Auto) 900 Eos # (Auto) 300 Baso # (Auto) 100 Sodium 133 L Potassium 4.3 Chloride 102 Carbon Dioxide 30 BUN 14 Creatinine 0.42 L Estimated GFR > 60 BUN/Creatinine Ratio 33.3 H Glucose 89 Calcium 8.3 L COUNTS INCLUDE 234 BEDS AT THE [facility] Medical History Acute hyponatremia Intertrochanteric fracture of left hip Alcoholism Anoxic brain injury Essential hypertension Cardiomyopathy Paroxysmal atrial fibrillation Alcohol dependence Elevated liver function tests Pulmonary nodule (~07/2019) COPD (chronic obstructive pulmonary disease) Impaired vision GERD (gastroesophageal reflux disease) Hypothyroidism Eczema (2017) Chronic cough (1999) Dislocated elbow (2000) Dislocated shoulder (2001) Fractures (~1964) Cataracts, bilateral (2007) Surgical History History of repair of hiatal hernia Hx of hernia repair (1995) History of nasal surgery (1963) History of cataract removal with insertion of prosthetic lens Family History Father History of arteriosclerotic cardiovascular disease History of emphysema Mother Cancer Grandfather No problems noted. Grandmother Stroke Grandfather No problems noted. Grandmother No problems noted. Social History household members: friend(s) and none Smoking Status: Former smoker Tobacco: How many years used: 22 quit status: not considering quitting second hand exposure: No alcohol intake: former substance use type: does not use Assessment & Plan Assessment & Plan narrative: 1. Failure to thrive - PT / OT assessment, suspect in the setting of worsening cognitive impairment. No focal deficits to suggest infarcts. CT head negative for bleed - case management / psychiatric social worker consulted. - repeated TTE given most recent echo was 2019, to see if any decrease in heart function is possibly contributing, though no clinical signs. 2. CHFrEF - most recent TTE was 2019, EF 50-55% markedly improved from prior - continue home coreg and losartan 3. Paroxysmal afib - presume not on anticoagulation due to fall risk. - continue home coreg. 4. hypothyroid - TSH unremarkable, continue home levothyroxine 75 mcg. 5. COPD wihtout exacerbation - replace home inhalers with formular equivalent nebulizers, duoneb BID and pulmicort BID with as needed albuterol 6. Cognitive impairment, likely related to chronic EtOH use - SLUMS of 21 with OT indicating mild cognitive impairment 7. Moderate Chronic Protein Calorie Malnutrition r/t decreased ability to consume sufficient energy intake as evidenced by moderate to severe muscle wasting (temporalis, interosseous, deltoid, trapezius, pectoralis major) and moderate subcutaneous fat loss (orbital and buccal fat pads), SLUMs Code: Full, surrogate is patient's brother. DVT: Lovenox daily I have utilized all available immediate resources to obtain, update, or review the patient's current medications. Dispo: BOAT FUELER working on home care with caregivers vs LTC. Unclear dispo plan at this time and may take a while. Additional history obtained via discussions with case management and therapy team. These discussions contributed to the creation of the above assessment and plan. I have reviewed patient's presenting documentation and outpatient documentation, labs, and imaging personally.
[2023-12-17] MEDS: TAMSULOSIN 0.4 MG CAPSULE PO (12:20)
[2023-12-17 19:00] VITALS: O2SAT 98
[2023-12-17 20:11] VITALS: PULSE 75; RESP 16; O2SAT 95
[2023-12-17] MEDS: ALBUTEROL/IPRATROPIUM 3 ML AMPUL INH (20:11)
[2023-12-17] MEDS: BUDESONIDE 0.5 MG/2 ML NEB INH (20:11)
[2023-12-17 20:25] VITALS: BP 118/49; PULSE 44; RESP 17; TEMP 36.3; O2SAT 98
[2023-12-17 20:31] VITALS: BP 112/53; PULSE 44
[2023-12-17] MEDS: TRAZODONE 50 MG TABLET 200 MG PO (20:33)
[2023-12-17] MEDS: QUETIAPINE 25 MG TABLET 12.5 MG PO (20:34)
[2023-12-17] MEDS: SENNOSIDES 8.6 MG TABLET PO (20:34)
[2023-12-18] MEDS: LEVOTHYROXINE 75 MCG TABLET PO (06:42)
[2023-12-18 08:00] VITALS: BP 106/53; PULSE 75; RESP 16; TEMP 36.2; O2SAT 97
[2023-12-18 09:37] VITALS: BP 106/53; PULSE 75
[2023-12-18] MEDS: carvediloL 3.125 MG TABLET PO (09:37)
[2023-12-18] MEDS: ENOXAPARIN 40 MG/0.4 ML SYRINGE SUBCUT (09:38)
[2023-12-18] MEDS: DOCUSATE 100 MG CAPSULE PO ×2 (09:38→21:13)
[2023-12-18 09:53] VITALS: O2SAT 97
--- NOTE | 2023-12-18 11:40 | CM.DPC ---
DCP Cont. Reviewed EMR and team rounds for status updates. No new changes today, pt has been pleasant with staff and open to working with therapies. F/u with [facility] on Tuesday for status updates. See below the email to find out who he was assigned to in the [facility] Acute Hospital Unit: [email or web address]
--- NOTE | 2023-12-18 11:52 | PM.PN.1 ---
Subjective Subjective Interval history: Patient begging to go home. Exam Vital Signs (past 8 hours): - 12/18/23 08:00 12/18/23 09:37 12/18/23 09:53 Temperature 97.1 F L Pulse Rate 75 75 Respiratory Rate 16 Blood Pressure 106/53 L 106/53 L Pulse Oximetry 97 97 Oxygen Delivery Method Room Air Fraction of Inspired Oxygen 21 SaO2/FiO2 Ratio 452 Oxygen Delivery Method Room Air Oxygen Flow Rate 0 Narrative Exam Narrative: Gen: No acute distress, oriented to person, time, and place. CV: RRR no m/r/g Pulm: CTA b/l Abd: S NT ND Ext: trace edema b/l LE, no joint effusions. Objective Labs 12/17/23 05:28 12/17/23 05:28 [facility] Medical History Acute hyponatremia Intertrochanteric fracture of left hip Alcoholism Anoxic brain injury Essential hypertension Cardiomyopathy Paroxysmal atrial fibrillation Alcohol dependence Elevated liver function tests Pulmonary nodule (~07/2019) COPD (chronic obstructive pulmonary disease) Impaired vision GERD (gastroesophageal reflux disease) Hypothyroidism Eczema (2016) Chronic cough (1999) Dislocated elbow (2000) Dislocated shoulder (2001) Fractures (~1963) Cataracts, bilateral (2007) Surgical History History of repair of hiatal hernia Hx of hernia repair (1995) History of nasal surgery (1963) History of cataract removal with insertion of prosthetic lens Family History Father History of arteriosclerotic cardiovascular disease History of emphysema Mother Cancer Grandfather No problems noted. Grandmother Stroke Grandfather No problems noted. Grandmother No problems noted. Social History household members: friend(s) and none Smoking Status: Former smoker Tobacco: How many years used: 22 quit status: not considering quitting second hand exposure: No alcohol intake: former substance use type: does not use Assessment & Plan Assessment & Plan narrative: 1. Failure to thrive - PT / OT assessment, suspect in the setting of worsening cognitive impairment. No focal deficits to suggest infarcts. CT head negative for bleed. - case management / geriatric social work professor consulted. - repeated TTE given most recent echo was 2019, to see if any decrease in heart function is possibly contributing, though no clinical signs. 2. CHFrEF - most recent TTE was 2019, EF 50-55% markedly improved from prior - continue home coreg and losartan 3. Paroxysmal afib - presume not on anticoagulation due to fall risk. - continue home coreg. 4. hypothyroid - TSH unremarkable, continue home levothyroxine 75 mcg. 5. COPD without exacerbation - replace home inhalers with formular equivalent nebulizers, duoneb BID and pulmicort BID with as needed albuterol 6. Cognitive impairment, likely related to chronic EtOH use - SLUMS of 21 with OT indicating mild cognitive impairment 7. Moderate Chronic Protein Calorie Malnutrition r/t decreased ability to consume sufficient energy intake as evidenced by moderate to severe muscle wasting (temporalis, interosseous, deltoid, trapezius, pectoralis major) and moderate subcutaneous fat loss (orbital and buccal fat pads), SLUMs Code: Full, surrogate is patient's brother. DVT: Lovenox daily I have utilized all available immediate resources to obtain, update, or review the patient's current medications. Dispo: GRINDER SET UP OPERATOR JIG working on home care with caregivers vs LTC. Unclear dispo plan at this time and may take a while. Additional history obtained via discussions with case management and therapy team. These discussions contributed to the creation of the above assessment and plan. I have reviewed patient's presenting documentation and outpatient documentation, labs, and imaging personally.
--- NOTE | 2023-12-18 12:25 | CM.DPC ---
DCP Cont. Reviewed EMR and team rounds for status updates. Per Dr. Ibrahim, pt continues to beg him to allow him to return home. Pt stated very clearly multiple times over the last few days that we are holding him against his will. He has also improved cognitively since his admission on 12/09/23. This TABLET COATER conulted with the Admin construction equipment overhauler, Lauren Hussein, who also agrees that pt is capable of making the decision to return home if he so chooses. TABLET COATER emailed his [facility] Home and Community Services case assembler and updated her on his discharge today, and to f/u with him in the community at his apartment for the functional assessment. TABLET COATER also updated his brother. TABLET COATER also provided patient with a taxi voucher for his safe return home. Please see below the email communication to [facility]: Edgard Mendez, can you please forward this email to the newly assigned case assembler in the Acute Hospital Unit? It may need to change back to you now. Our Hospitalist, Dr. Ibrahim, our Admin Chief Clinical Officer, and myself discussed this case today. Shmuel has improved cognitively since he was admitted here on 12/09/23. He has shown that he is able to make functional decisions for himself and understands the consequences of his decisions and the impact on his choices. At this time, he is adamant to go home, and feels that he has the right to leave and return to his apartment. We have decided to support him with his own decision to do so. Please f/u with him and/or his brother at this apartment for your functional assessment, we are going to remain hopeful that you will find him a safe and local long-term placement in the near future. We are setting him up with a taxi to discharge back home today. Thank you, Haley
--- NOTE | 2023-12-18 12:44 | CM.DPC ---
DCP Cont. Update, pt's brother is unwilling to transport pt home, and pt cannot get into his home without assistance, so we could not order a taxi. His brother also yelled at this CRITICAL CARE EDUCATOR the entire call and refused to assist. He stated that he already removed all of the bedding and most of the things in the apartment. Updated Lauren [address] and Dr. Ibrahim, we will not be able to d/c him home safely at this time. Updated [facility].
[2023-12-18] MEDS: TAMSULOSIN 0.4 MG CAPSULE PO (13:38)
[2023-12-18 20:10] VITALS: BP 94/53; PULSE 77; RESP 21; TEMP 36.3; O2SAT 95
[2023-12-18 20:42] VITALS: O2SAT 95
[2023-12-18] MEDS: BUDESONIDE 0.5 MG/2 ML NEB INH (20:50)
[2023-12-18] MEDS: ALBUTEROL/IPRATROPIUM 3 ML AMPUL INH (20:50)
[2023-12-18 21:12] VITALS: BP 94/53; PULSE 48
[2023-12-18] MEDS: SENNOSIDES 8.6 MG TABLET PO (21:13)
[2023-12-18] MEDS: QUETIAPINE 25 MG TABLET 12.5 MG PO (21:14)
[2023-12-18] MEDS: TRAZODONE 50 MG TABLET 200 MG PO (23:25)
[2023-12-19] MEDS: LEVOTHYROXINE 75 MCG TABLET PO (05:56)
[2023-12-19 07:00] VITALS: O2SAT 97
--- NOTE | 2023-12-19 07:42 | P.PN_ITS ---
Subjective Subjective Interval history: He has no new complaints. He denies any pain, or dyspnea. He would like to return to his apartment. He believes he is in good standing at his apartment. Exam Vital Signs (past 8 hours): - 12/19/23 04:03 Oxygen Flow Rate 0 Fraction of Inspired Oxygen 21 SaO2/FiO2 Ratio 452 Oxygen Delivery Method Room Air Oxygen Flow Rate 0 Narrative Exam Narrative: NAD, alert and oriented. Fluent speech. Lungs are clear, normal rate and effort. Heart is regular, no murmur gallop or rub. Abdomen is soft, non distended. Extremities are free of edema. Objective Labs 12/17/23 05:28 12/17/23 05:28 COUNTS INCLUDE 234 BEDS AT THE [facility] Medical History Acute hyponatremia Intertrochanteric fracture of left hip Alcoholism Anoxic brain injury Essential hypertension Cardiomyopathy Paroxysmal atrial fibrillation Alcohol dependence Elevated liver function tests Pulmonary nodule (~07/2019) COPD (chronic obstructive pulmonary disease) Impaired vision GERD (gastroesophageal reflux disease) Hypothyroidism Eczema (2016) Chronic cough (1999) Dislocated elbow (2000) Dislocated shoulder (2001) Fractures (~1963) Cataracts, bilateral (2007) Surgical History History of repair of hiatal hernia Hx of hernia repair (1995) History of nasal surgery (1963) History of cataract removal with insertion of prosthetic lens Family History Father History of arteriosclerotic cardiovascular disease History of emphysema Mother Cancer Grandfather No problems noted. Grandmother Stroke Grandfather No problems noted. Grandmother No problems noted. Social History household members: friend(s) and none Smoking Status: Former smoker Tobacco: How many years used: 22 quit status: not considering quitting second hand exposure: No alcohol intake: former substance use type: does not use Assessment & Plan Assessment & Plan narrative: 1. Failure to thrive, active. - PT / OT assessment, suspect in the setting of worsening cognitive impairment. No focal deficits to suggest infarcts. CT head negative for bleed. - case management / social services specialist consulted. - repeated TTE given most recent echo was 2019, to see if any decrease in heart function is possibly contributing, though no clinical signs. 2. CHFrEF, stable - most recent TTE was 2019, EF 50-55% markedly improved from prior - continue home coreg and losartan 3. Paroxysmal afib, stable. - presume not on anticoagulation due to fall risk. - continue home coreg. 4. Hypothyroid, stable. - TSH unremarkable, continue home levothyroxine 75 mcg. 5. COPD without exacerbation, stable. - replace home inhalers with formular equivalent nebulizers, duoneb BID and pulmicort BID with as needed albuterol 6. Cognitive impairment, stable. - SLUMS of 21 with OT indicating mild cognitive impairment 7. Moderate Chronic Protein Calorie Malnutrition r/t decreased ability to consume sufficient energy intake as evidenced by moderate to severe muscle wasting (temporalis, interosseous, deltoid, trapezius, pectoralis major) and moderate subcutaneous fat loss (orbital and buccal fat pads), SLUMs 21/30, present on admission and active. Code: Full, surrogate is patient's brother. DVT: Lovenox daily I have utilized all available immediate resources to obtain, update, or review the patient's current medications. Dispo: INSTRUCTOR PAINTING working on home care with caregivers vs LTC. Will discuss with INSTRUCTOR PAINTING after they meet with the patient today.
[2023-12-19] MEDS: ENOXAPARIN 40 MG/0.4 ML SYRINGE SUBCUT (08:16)
[2023-12-19] MEDS: DOCUSATE 100 MG CAPSULE PO ×2 (08:16→21:31)
[2023-12-19] MEDS: TAMSULOSIN 0.4 MG CAPSULE PO (08:16)
[2023-12-19 08:19] VITALS: BP 126/86; PULSE 57; RESP 18; TEMP 36.4; O2SAT 97
[2023-12-19 08:26] VITALS: BP 126/86
--- NOTE | 2023-12-19 08:46 | ST.IPDYTX ---
Visit Care Team Role Provider Type Yasmine Gibbs RN Primary Care Provider Non-Staff Specialty: Family Practice Address: [address] [place] [address], [id number] Email: Hemalatha Hand DO Emergency Provider Physician Referring Provider Specialty: Emergency Medicine Address: [address] [place] [address], [id number] Email: [email or web address] Jamison [email or web address] DO Admit Provider Physician Attending Provider Specialty: Internal Medicine Address: [address] [place] [address], [id number] Email: [email or web address] DEFECT CUTTER Dysphagia Treatment DEFECT CUTTER Dysphagia Treatment Start: 12/14/23 10:20 Freq: Status: Active Protocol: Document 12/19/23 08:38 MA (Rec: 12/19/23 08:46 MA [id number]) Dysphagia Treatment Session Time Visit Start Time 08:20 Visit Stop Time 08:40 Total Visit Minutes 20 Visit Information Visit Number 3 Setting Assessment Location Outpatient Care Patient Information Identification Type Name,ID Wristband Subjective Observations Pt sitting upright in chair in room. Pt just finishehd breakfast with nursing/nursing aid reporting Pt had no observed difficulties, however can be impulsive. Pt awake, alert. Treatment Liquids Trialed Thin (IDDSI 0) Solids Trialed Easy to Chew (IDDSI 7) Administration Type Straw,Self-Feeding Oral Strategies Upright at 90 degrees, Controlled Bite/Sip Size Pharyngeal Strategies Small Bites and Sips Additional Dysphagia Treatment Independent in eating Strategies Treatment Activities Therapeutic PO trials, safe swallowing strategies The IDDSI Framework Protocol: IDDSI.1 Assessment Patient Response to Treatment Good Assessment of Improvement Per nurse, the pt finished his breakfast and did not have any overt s/sx of aspiration at that time. Pt compliant with therapeutic PO trials. ST assessed swallow function with PO trial of soft solids and thin liquids in order to determine safest and most efficient least restrictive diet. Pt consumed 1 chewy bar and 4 oz of thin water via straw. Pt inconsistent with impulsivity, such as taking large bites. ST educated Pt on importance and reason for small bites. Pt did not verbalized understanding. For soft solid, Pt demonstrated prolonged mastication, extended ap transport, no overt s/s of aspiration. ST cued Pt to alternate liquids/ solids to assist with intake, however Pt declined and waiting until he was done chewing. No overt s/s of aspiration with thin water via straw. ST provided additional education on safe swallowing strategies and reason for modified diet. Pt did not verbalize understanding. ST communicated with nursing Pt progress and plan to remain on IDDSI 5/IDDSI 0. ST to discharge Pt from d/t Pt on safest and most effficient least restrictive diet and no overt s/s of aspiration. Recommendations Recommendations Continue Current Diet Liquids Order Thin (IDDSI 0) Diet Order Minced & Moist (IDDSI 5) Medication Recommendations As Tolerated,Whole in Carrier, Crushed in Carrier Additional Dietary Needs Controlled Sips,Reminders to Use Strategies Aspiration Precautions Additional Precautions Slow presentation to the pt, recline pt's bed no less than 40 degrees Treatment Plan Placement Recommendation after Discharge Half-Way Facility Appropriate for Continued Therapy Yes Therapy Recommendations Patient is being discharged to SNF most likely. Recommend ongoing DEFECT CUTTER at SNF. Dysphagia Goals 1) Pt's diet texture will improve to least restricted level without s/sx of aspiration 2) Base of tongue exercises will be introduced to increase forward movement of hyoid 3) Safe swallow strategies will be introduced to the pt to reduce risk of aspiration. 4) Staff education for implementing safe swallow strategies.
--- NOTE | 2023-12-19 08:46 | ST.IPDYTX ---
Visit Care Team Role Provider Type Yasmine Gibbs RN Primary Care Provider Non-Staff Specialty: Family Practice Address: [address] [place] [address], [id number] Email: Hemalatha Hand DO Emergency Provider Physician Referring Provider Specialty: Emergency Medicine Address: [address] [place] [address], [address] Email: [email or web address] Admit Provider Physician Attending Provider Specialty: Internal Medicine Address: [address] [place] [address], [address] Email: [email or web address] Dysphagia Treatment LAMINATE FLOOR INSTALLER Dysphagia Treatment Start: 12/14/23 10:20 Freq: Status: Active Protocol: Document 12/19/23 08:38 MA (Rec: 12/19/23 08:46 MA [id number]) Dysphagia Treatment Session Time Visit Start Time 08:20 Visit Stop Time 08:40 Total Visit Minutes 20 Visit Information Visit Number 3 Setting Assessment Location Outpatient Care Patient Information Identification Type Name,ID Wristband Subjective Observations Pt sitting upright in chair in room. Pt just finishehd breakfast with nursing/nursing aid reporting Pt had no observed difficulties, however can be impulsive. Pt awake, alert. Treatment Liquids Trialed Thin (IDDSI 0) Solids Trialed Easy to Chew (IDDSI 7) Administration Type Straw,Self-Feeding Oral Strategies Upright at 90 degrees, Controlled Bite/Sip Size Pharyngeal Strategies Small Bites and Sips Additional Dysphagia Treatment Independent in eating Strategies Treatment Activities Therapeutic PO trials, safe swallowing strategies The IDDSI Framework Protocol: IDDSI.1 Assessment Patient Response to Treatment Good Assessment of Improvement Per nurse, the pt finished his breakfast and did not have any overt s/sx of aspiration at that time. Pt compliant with therapeutic PO trials. ST assessed swallow function with PO trial of soft solids and thin liquids in order to determine safest and most efficient least restrictive diet. Pt consumed 1 chewy bar and 4 oz of thin water via straw. Pt inconsistent with impulsivity, such as taking large bites. ST educated Pt on importance and reason for small bites. Pt did not verbalized understanding. For soft solid, Pt demonstrated prolonged mastication, extended ap transport, no overt s/s of aspiration. ST cued Pt to alternate liquids/ solids to assist with intake, however Pt declined and waiting until he was done chewing. No overt s/s of aspiration with thin water via straw. ST provided additional education on safe swallowing strategies and reason for modified diet. Pt did not verbalize understanding. ST communicated with nursing Pt progress and plan to remain on IDDSI 5/IDDSI 0. ST to discharge Pt from d/t Pt on safest and most effficient least restrictive diet and no overt s/s of aspiration. Recommendations Recommendations Continue Current Diet Liquids Order Thin (IDDSI 0) Diet Order Minced & Moist (IDDSI 5) Medication Recommendations As Tolerated,Whole in Carrier, Crushed in Carrier Additional Dietary Needs Controlled Sips,Reminders to Use Strategies Aspiration Precautions Additional Precautions Slow presentation to the pt, recline pt's bed no less than 40 degrees Treatment Plan Placement Recommendation after Discharge [facility] Facility Appropriate for Continued Therapy Yes Therapy Recommendations Patient is being discharged to SNF most likely. Recommend ongoing LAMINATE FLOOR INSTALLER at SNF. Dysphagia Goals 1) Pt's diet texture will improve to least restricted level without s/sx of aspiration 2) Base of tongue exercises will be introduced to increase forward movement of hyoid 3) Safe swallow strategies will be introduced to the pt to reduce risk of aspiration. 4) Staff education for implementing safe swallow strategies.
[2023-12-19 10:28] VITALS: PULSE 54
--- NOTE | 2023-12-19 11:45 | PC.NURSE ---
Patient alert to self and place, wants to go home. Will not allow nurse or nursing project coordinator provide any patient care. Will offer bath later this afternoon. Reorientated to call light. Bed alarm on.
--- NOTE | 2023-12-19 14:53 | CM.DPNOTE ---
DCP NOte OCEANOGRAPHER PHYSICAL reviewed EMR. Per November CM from [facility]- got a call from brother about concerns about pt discharging. OCEANOGRAPHER PHYSICAL explained situation to November that pt really wanted to leave and go home and we cannot hold him against his will. November reported her bus driver supervisor is working on expediting the LTC assessment with [facility]. November asked to speak to pt. OCEANOGRAPHER PHYSICAL entered room, introduced self and role, and dialed Donna's number into pt's phone to speak with her. (November cell, . Office [phone] ext [phone]). Pt agreeable to talking with Donna. OCEANOGRAPHER PHYSICAL spoke with Georgie from [facility]. (p [phone] ext [phone]. email [email or web address]). report pt can return home with 21/03 supervision/caregivers until LTC placement can be arranged, but he was technically evicted 12/09/23. Brother working on clearing it out. OCEANOGRAPHER PHYSICAL had lengthy conversation with brothnarda Callejas (p [phone]) on the phone. Júnior reports he has cleaned out the majority of pt's apartment- shut off various services. Júnior reports the apartment is not habitable, cleared out bed/food/shut off electricity. Júnior remains agreeable to LTC placement. Reports that the RN from [facility] Cinthia would find pt not taking medication properly often. Júnior reports he's more with it now due to consistent medication and would return to being unsafe in the home as soon as discharged. Júnior reports current preference is [facility] in [place]- he believes they have Medicaid male beds available. OCEANOGRAPHER PHYSICAL spoke with newly assigned SHELTON Moreno (p [phone] email [email or web address]). OCEANOGRAPHER PHYSICAL answered questions to best of ability on pt's current situation, socially, financially, and medically. Cynthia scheduled assessment for Monday 12/25 in the hospital at 2pm. Asked for 7 days prior worth of clinicals/Facesheet/H&P/consult notes/PT/OT notes/med list day of assessment to be emailed to her. OCEANOGRAPHER PHYSICAL updated brother Júnior on assessment date. OCEANOGRAPHER PHYSICAL updated second floor operator Danuta WATKINS on date of assessment. OCEANOGRAPHER PHYSICAL emailed Cynthia the following to confirm assessment date and provide her contact information to the CM team. OCEANOGRAPHER PHYSICAL had lengthy conversation with pt in room. Pt continues to report frustration that he will never return to his apartment- mainly with concerns about his belongings. OCEANOGRAPHER PHYSICAL updated pt with conversations today with Georgie, Donna, Júnior, and Cynthia. Pt continued to perseverate on his belongings. 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 Pt did not remember the conditions in which he was brought to the hospital, nor did he report remembering his multiple ED visits. Pt in agreement to remain here in the hospital until assessment. Plan: [facility] Assessment with Cynthia Moreno scheduled for TuesdayDecember 25 at 2pm. CM team will attempt referrals to different [facility], family preference is [facility] in [place], to start LTC placement process. CM team will follow closely. ROBIN Murphy
[2023-12-19 20:18] VITALS: BP 127/73; PULSE 64; RESP 18; TEMP 36.3; O2SAT 97
[2023-12-19] MEDS: QUETIAPINE 25 MG TABLET 12.5 MG PO (21:31)
[2023-12-19] MEDS: SENNOSIDES 8.6 MG TABLET PO (21:31)
[2023-12-19 21:37] VITALS: O2SAT 97
[2023-12-20] MEDS: LEVOTHYROXINE 75 MCG TABLET PO (05:53)
[2023-12-20 07:00] VITALS: BP 135/84; PULSE 62; RESP 16; TEMP 36.3
[2023-12-20 08:26] VITALS: O2SAT 97
[2023-12-20 08:49] VITALS: BP 135/84; PULSE 62
[2023-12-20] MEDS: carvediloL 3.125 MG TABLET PO ×2 (08:49→20:10)
[2023-12-20] MEDS: DOCUSATE 100 MG CAPSULE PO ×2 (08:50→20:10)
[2023-12-20] MEDS: ENOXAPARIN 40 MG/0.4 ML SYRINGE SUBCUT (08:50)
[2023-12-20] MEDS: TAMSULOSIN 0.4 MG CAPSULE PO (08:51)
--- NOTE | 2023-12-20 12:09 | PM.PN.1 ---
Subjective Subjective Interval history: No chest pain or dyspnea. Wants to return home. Exam Vital Signs (past 8 hours): - 12/20/23 07:00 12/20/23 08:26 12/20/23 08:49 Temperature 97.3 F L Pulse Rate 62 62 Respiratory Rate 16 Blood Pressure 135/84 135/84 Pulse Oximetry 97 Oxygen Delivery Method Room Air Oxygen Flow Rate 0 Fraction of Inspired Oxygen 21 SaO2/FiO2 Ratio 452 Oxygen Delivery Method Room Air Oxygen Flow Rate 0 Narrative Exam Narrative: NAD, alert and oriented. Fluent speech. Lungs are clear, normal rate and effort. Heart is regular, no murmur gallop or rub. Abdomen is soft, non distended. Extremities are free of edema. Objective Labs 12/17/23 05:28 12/17/23 05:28 [facility] Medical History Acute hyponatremia Intertrochanteric fracture of left hip Alcoholism Anoxic brain injury Essential hypertension Cardiomyopathy Paroxysmal atrial fibrillation Alcohol dependence Elevated liver function tests Pulmonary nodule (~07/2019) COPD (chronic obstructive pulmonary disease) Impaired vision GERD (gastroesophageal reflux disease) Hypothyroidism Eczema (2016) Chronic cough (1999) Dislocated elbow (2000) Dislocated shoulder (2001) Fractures (~1963) Cataracts, bilateral (2007) Surgical History History of repair of hiatal hernia Hx of hernia repair (1995) History of nasal surgery (1963) History of cataract removal with insertion of prosthetic lens Family History Father History of arteriosclerotic cardiovascular disease History of emphysema Mother Cancer Grandfather No problems noted. Grandmother Stroke Grandfather No problems noted. Grandmother No problems noted. Social History household members: friend(s) and none Smoking Status: Former smoker Tobacco: How many years used: 22 quit status: not considering quitting second hand exposure: No alcohol intake: former substance use type: does not use Assessment & Plan Assessment & Plan narrative: 1. Failure to thrive, active. - CT head negative for bleed. - case management / social work assistant consulted. Working on placement. State to see next Elijah. - his apartment is not livable per brother. 2. CHFrEF, present on admission and stable - most recent TTE was 2019, EF 50-55% markedly improved from prior - continue home coreg and losartan 3. Paroxysmal afib, present on admission and stable. - presume not on anticoagulation due to fall risk. - continue home coreg. 4. Hypothyroid, present on admission and stable. - TSH unremarkable, continue home levothyroxine 75 mcg. 5. COPD without exacerbation, present on admission and stable. - replace home inhalers with formular equivalent nebulizers, duoneb BID and pulmicort BID with as needed albuterol 6. Cognitive impairment, present on admission and stable. - SLUMS of 21 with OT indicating mild cognitive impairment 7. Moderate Chronic Protein Calorie Malnutrition r/t decreased ability to consume sufficient energy intake as evidenced by moderate to severe muscle wasting (temporalis, interosseous, deltoid, trapezius, pectoralis major) and moderate subcutaneous fat loss (orbital and buccal fat pads), SLUMs 21/30, present on admission and active. Code: Full, surrogate is patient's brother. DVT: Lovenox daily HOLLY: unclear DISPO: Needs placement. Time Spent With Patient Time with patient: less than 30 minutes
--- NOTE | 2023-12-20 12:26 | CM.DPNOTE ---
Addendum entered by ROBIN Murphy 12/20/23 16:05: CH[employer]ERS spoke with brother Júnior (p [phone]). continues to report preference is [facility]. Júnior reports he will not do anything with pt's belongings until there is the intermediate frame tender plan and will not get rid of anything without talking to pt first. CHANNEL PARTNERS met with pt in room. Pt could not recall much of the conversation from yesterday with this CHANNEL PARTNERS. Continues to report not understanding why he cannot return home even though he has been evicted. CHANNEL PARTNERS conveyed the situation as best as able. Pt reports feeling overwhelmed by it all. Remains agreeable to assessment here and to move to [facility] for the intermediate frame tender plan. CHANNEL PARTNERS updated pt about brother's intentions with his belongings. Pt continues to remain anxious about his stuff in the apartment. Pt denies other questions at this time. SL Original Note: DCP Note CHANNEL PARTNERS reviewed EMR. CHANNEL PARTNERS updated team in morning rounds on assessment plan. twyla Jenkins. tableau developer, stopped by for updates. Agrees with brother that pt apartment is not habitable. Per family request, preference is for pt to dc to [facility] in [place]. CHANNEL PARTNERS spoke with Janene (f [phone], email [email or web address], phone [phone]). Reports available male medicaid beds. Report they need to do their own nursing bedside assessment- inquiring with team about when that can be scheduled. CHANNEL PARTNERS emailed Janene initial clinical information for review. Plan: [facility] bedside assessment time pending. LTC [facility] Assessment with Cynthia Moreno scheduled for 2pm 12/25. Cynthia will need 7 days of clinicals emailed to her day of assessment. CM team will follow closely. ROBIN Murphy
[2023-12-20 20:06] VITALS: BP 130/76; PULSE 67; RESP 19; TEMP 36.1; O2SAT 98
[2023-12-20] MEDS: TRAZODONE 50 MG TABLET 200 MG PO (20:10)
[2023-12-20] MEDS: SENNOSIDES 8.6 MG TABLET PO (20:10)
[2023-12-20] MEDS: QUETIAPINE 25 MG TABLET 12.5 MG PO (20:10)
[2023-12-21] MEDS: LEVOTHYROXINE 75 MCG TABLET PO (05:44)
[2023-12-21 07:00] VITALS: BP 106/66; PULSE 64; RESP 16; TEMP 36.2; O2SAT 94
--- NOTE | 2023-12-21 07:23 | PM.PN.1 ---
Subjective Subjective Interval history: No new complaints. No concerns. Exam Vital Signs (past 8 hours): Fraction of Inspired Oxygen 21 SaO2/FiO2 Ratio 452 Oxygen Delivery Method Room Air Oxygen Flow Rate 0 Narrative Exam Narrative: NAD, alert and oriented. Fluent speech. Lungs are clear, normal rate and effort. Heart is regular, no murmur gallop or rub. Abdomen is soft, non distended. Extremities are free of edema. Objective Labs 12/17/23 05:28 12/17/23 05:28 [facility] Medical History Acute hyponatremia Intertrochanteric fracture of left hip Alcoholism Anoxic brain injury Essential hypertension Cardiomyopathy Paroxysmal atrial fibrillation Alcohol dependence Elevated liver function tests Pulmonary nodule (~07/2019) COPD (chronic obstructive pulmonary disease) Impaired vision GERD (gastroesophageal reflux disease) Hypothyroidism Eczema (2016) Chronic cough (1999) Dislocated elbow (2000) Dislocated shoulder (2001) Fractures (~1963) Cataracts, bilateral (2007) Surgical History History of repair of hiatal hernia Hx of hernia repair (1995) History of nasal surgery (1963) History of cataract removal with insertion of prosthetic lens Family History Father History of arteriosclerotic cardiovascular disease History of emphysema Mother Cancer Grandfather No problems noted. Grandmother Stroke Grandfather No problems noted. Grandmother No problems noted. Social History household members: friend(s) and none Smoking Status: Former smoker Tobacco: How many years used: 22 quit status: not considering quitting second hand exposure: No alcohol intake: former substance use type: does not use Assessment & Plan Assessment & Plan narrative: 1. Failure to thrive, active. - see plan below. 2. CHFrEF, present on admission and stable - continue current medications. 3. Paroxysmal afib, present on admission and stable. - continue current medications. 4. Hypothyroid, present on admission and stable. - continue home levothyroxine 75 mcg. 5. COPD without exacerbation, present on admission and stable. - replace home inhalers with formular equivalent nebulizers, duoneb BID and pulmicort BID with as needed albuterol 6. Cognitive impairment, present on admission and stable. - SLUMS of 21 with OT indicating mild cognitive impairment 7. Moderate Chronic Protein Calorie Malnutrition r/t decreased ability to consume sufficient energy intake as evidenced by moderate to severe muscle wasting (temporalis, interosseous, deltoid, trapezius, pectoralis major) and moderate subcutaneous fat loss (orbital and buccal fat pads), SLUMs , present on admission and active. 8. Alcohol abuse, present on admission and stable. PLAN: -continue all current medications and monitor vital signs. -encourage activity and out of bed. -currently working on potential placement options. His apartment is no longer an option to return to. See social work notes for more details.
[2023-12-21 09:46] VITALS: BP 106/66; PULSE 64
[2023-12-21] MEDS: carvediloL 3.125 MG TABLET PO ×2 (09:46→21:04)
[2023-12-21] MEDS: TAMSULOSIN 0.4 MG CAPSULE PO (09:46)
[2023-12-21] MEDS: DOCUSATE 100 MG CAPSULE PO ×2 (09:46→21:05)
[2023-12-21] MEDS: ENOXAPARIN 40 MG/0.4 ML SYRINGE SUBCUT (09:47)
--- NOTE | 2023-12-21 10:16 | CM.DPC ---
DCP Cont. Reviewed EMR and team rounds for status updates. Plan continues to remain the same, 12/25 for functional assessment from [facility] followed by [facility] placement. Will continue to monitor.
[2023-12-21 19:00] VITALS: O2SAT 95
[2023-12-21 20:09] VITALS: BP 109/63; PULSE 96; RESP 19; TEMP 36.6; O2SAT 94
[2023-12-21 21:04] VITALS: BP 109/63; PULSE 96
[2023-12-21] MEDS: ACETAMINOPHEN 325 MG TABLET 650 MG PO (21:04)
[2023-12-21] MEDS: TRAZODONE 50 MG TABLET 200 MG PO (21:05)
[2023-12-21] MEDS: QUETIAPINE 25 MG TABLET 12.5 MG PO (21:05)
[2023-12-21] MEDS: SENNOSIDES 8.6 MG TABLET PO (21:05)
--- NOTE | 2023-12-22 01:47 | PC.NURSE ---
Pt requested slushie of ice and vijay uday at 1930. At 2030, pt sat at edge of bed and proceeded to rapidly pour more vijay uday and drink. This RN told patient that he didn't have to finish it if he didn't want to, that we could save it for him, and that we had plenty of extra drinks if he wanted. Pt reported to this RN that he felt obligated to finish it even though I'm finished with it. This RN informed him that there no such obligation exists. Pt insisted that he didn't want to waste beverage and continued to drink. Will continue to monitor oral intake and reassure patient of freedom of dietary choice.
[2023-12-22 07:00] VITALS: BP 108/65; PULSE 72; RESP 16; TEMP 35.8; O2SAT 97
[2023-12-22] MEDS: LEVOTHYROXINE 75 MCG TABLET PO (08:04)
--- NOTE | 2023-12-22 08:47 | PM.PN.1 ---
Subjective Subjective Interval history: No new issues or complaints. Exam Vital Signs (past 8 hours): Fraction of Inspired Oxygen 21 SaO2/FiO2 Ratio 452 Oxygen Delivery Method Room Air Oxygen Flow Rate 0 Narrative Exam Narrative: NAD, alert and oriented. Fluent speech. Lungs are clear, normal rate and effort. Heart is regular, no murmur gallop or rub. Abdomen is soft, non distended. Extremities are free of edema. Objective Labs 12/17/23 05:28 12/17/23 05:28 [facility] Medical History Acute hyponatremia Intertrochanteric fracture of left hip Alcoholism Anoxic brain injury Essential hypertension Cardiomyopathy Paroxysmal atrial fibrillation Alcohol dependence Elevated liver function tests Pulmonary nodule (~07/2019) COPD (chronic obstructive pulmonary disease) Impaired vision GERD (gastroesophageal reflux disease) Hypothyroidism Eczema (2016) Chronic cough (1999) Dislocated elbow (2000) Dislocated shoulder (2001) Fractures (~1963) Cataracts, bilateral (2007) Surgical History History of repair of hiatal hernia Hx of hernia repair (1995) History of nasal surgery (1963) History of cataract removal with insertion of prosthetic lens Family History Father History of arteriosclerotic cardiovascular disease History of emphysema Mother Cancer Grandfather No problems noted. Grandmother Stroke Grandfather No problems noted. Grandmother No problems noted. Social History household members: friend(s) and none Smoking Status: Former smoker Tobacco: How many years used: 22 quit status: not considering quitting second hand exposure: No alcohol intake: former substance use type: does not use Assessment & Plan Assessment & Plan narrative: 1. Failure to thrive, active. 2. CHFrEF, present on admission and stable 3. Paroxysmal afib, present on admission and stable. 4. Hypothyroid, present on admission and stable. 5. COPD without exacerbation, present on admission and stable. 6. Cognitive impairment, present on admission and stable. - SLUMS of 21 with OT indicating mild cognitive impairment 7. Moderate Chronic Protein Calorie Malnutrition r/t decreased ability to consume sufficient energy intake as evidenced by moderate to severe muscle wasting (temporalis, interosseous, deltoid, trapezius, pectoralis major) and moderate subcutaneous fat loss (orbital and buccal fat pads), SLUMs , present on admission and active. 8. Alcohol abuse, present on admission and stable. PLAN: -continue all current medications and monitor vital signs. -encourage activity and out of bed. -currently working on potential placement options. His apartment is no longer an option to return to. See social work notes for details. -No major changes or updates.
[2023-12-22] MEDS: ENOXAPARIN 40 MG/0.4 ML SYRINGE SUBCUT (09:09)
[2023-12-22 09:10] VITALS: BP 108/65; PULSE 72
[2023-12-22] MEDS: TAMSULOSIN 0.4 MG CAPSULE PO (09:10)
[2023-12-22] MEDS: carvediloL 3.125 MG TABLET PO ×2 (09:10→20:24)
[2023-12-22] MEDS: DOCUSATE 100 MG CAPSULE PO ×2 (09:10→20:24)
[2023-12-22 19:00] VITALS: BP 116/70; PULSE 75; RESP 20; TEMP 36.3; O2SAT 96
[2023-12-22 20:24] VITALS: BP 116/70; PULSE 75
[2023-12-22] MEDS: SENNOSIDES 8.6 MG TABLET PO (20:24)
[2023-12-22] MEDS: TRAZODONE 50 MG TABLET 200 MG PO (20:24)
[2023-12-22] MEDS: QUETIAPINE 25 MG TABLET 12.5 MG PO (20:24)
[2023-12-23 07:00] VITALS: O2SAT 99
--- NOTE | 2023-12-23 07:33 | PM.PN.1 ---
Subjective Subjective Interval history: Doing well, no complaints. Exam Vital Signs (past 8 hours): Fraction of Inspired Oxygen 21 SaO2/FiO2 Ratio 452 Oxygen Delivery Method Room Air Oxygen Flow Rate 0 Narrative Exam Narrative: NAD, alert and oriented. Fluent speech. Lungs are clear, normal rate and effort. Heart is regular, no murmur gallop or rub. Abdomen is soft, non distended. Extremities are free of edema. Objective Labs 12/17/23 05:28 12/17/23 05:28 [facility] Medical History Acute hyponatremia Intertrochanteric fracture of left hip Alcoholism Anoxic brain injury Essential hypertension Cardiomyopathy Paroxysmal atrial fibrillation Alcohol dependence Elevated liver function tests Pulmonary nodule (~07/2019) COPD (chronic obstructive pulmonary disease) Impaired vision GERD (gastroesophageal reflux disease) Hypothyroidism Eczema (2016) Chronic cough (1999) Dislocated elbow (2000) Dislocated shoulder (2001) Fractures (~1963) Cataracts, bilateral (2007) Surgical History History of repair of hiatal hernia Hx of hernia repair (1995) History of nasal surgery (1963) History of cataract removal with insertion of prosthetic lens Family History Father History of arteriosclerotic cardiovascular disease History of emphysema Mother Cancer Grandfather No problems noted. Grandmother Stroke Grandfather No problems noted. Grandmother No problems noted. Social History household members: friend(s) and none Smoking Status: Former smoker Tobacco: How many years used: 22 quit status: not considering quitting second hand exposure: No alcohol intake: former substance use type: does not use Assessment & Plan Assessment & Plan narrative: 1. Failure to thrive, active. 2. CHFrEF, present on admission and stable 3. Paroxysmal afib, present on admission and stable. 4. Hypothyroid, present on admission and stable. 5. COPD without exacerbation, present on admission and stable. 6. Cognitive impairment, present on admission and stable. - SLUMS of 21 with OT indicating mild cognitive impairment 7. Moderate Chronic Protein Calorie Malnutrition r/t decreased ability to consume sufficient energy intake as evidenced by moderate to severe muscle wasting (temporalis, interosseous, deltoid, trapezius, pectoralis major) and moderate subcutaneous fat loss (orbital and buccal fat pads), SLUMs , present on admission and active. 8. Alcohol abuse, present on admission and stable. PLAN: -continue all current medications and monitor vital signs. -encourage activity and out of bed. -currently working on potential placement options. His apartment is no longer an option to return to. See social work notes for details. -No major changes or updates.
[2023-12-23] MEDS: LEVOTHYROXINE 75 MCG TABLET PO (07:41)
[2023-12-23 08:58] VITALS: BP 123/79; PULSE 68
[2023-12-23] MEDS: ENOXAPARIN 40 MG/0.4 ML SYRINGE SUBCUT (08:58)
[2023-12-23] MEDS: carvediloL 3.125 MG TABLET PO ×2 (08:58→20:41)
[2023-12-23] MEDS: DOCUSATE 100 MG CAPSULE PO ×2 (08:58→20:41)
[2023-12-23 09:00] VITALS: BP 123/79; PULSE 68; RESP 16; TEMP 36.1; O2SAT 99
[2023-12-23] MEDS: TAMSULOSIN 0.4 MG CAPSULE PO (09:04)
--- NOTE | 2023-12-23 11:35 | CM.DPC ---
DCP Cont. Reviewed EMR and team rounds for status updates. No changes to the d/c plan at this time. [facility] registered nurse hh case manageremployee relation manager scheduled for Tuesday, 12/25.
[2023-12-23 20:00] VITALS: BP 107/62; PULSE 75; RESP 16; TEMP 36.4; O2SAT 95
[2023-12-23] MEDS: SENNOSIDES 8.6 MG TABLET PO (20:40)
[2023-12-23 20:41] VITALS: BP 107/62; PULSE 75
[2023-12-23] MEDS: QUETIAPINE 25 MG TABLET 12.5 MG PO (20:41)
--- NOTE | 2023-12-23 23:35 | PC.NURSE ---
Patient is oriented to self, BD, age, year and place. Get upset when questioned and starts using profanity but is easily redirectable. States he is being held against his will and was brought to the hospital against his will. Breath sounds CTA with RA sat of 95%. HRR. Denies nausea. Wanting staff to bring him snacks continually during this shift so far. BT present but has not had a BM since 12/19; medicated with Senna + Colace. Is voiding frequently but denies dysuria and urine is very pale yellow and clear. Is able to move himself but weak on feet so is assisted to stand at edge of bed to use urinal. Denies pain. Fall risk score is high and bed alarm is activated.
[2023-12-24] MEDS: LEVOTHYROXINE 75 MCG TABLET PO (05:40)
[2023-12-24 07:00] VITALS: BP 104/59; PULSE 69; RESP 16; TEMP 37.2; O2SAT 94; O2SAT 96
--- NOTE | 2023-12-24 07:36 | PM.PN.1 ---
Subjective Subjective Interval history: He is doing well with no new concerns. No issues overnight. He has awaiting a state assessment of function on Tuesday. Exam Vital Signs (past 8 hours): Fraction of Inspired Oxygen 21 SaO2/FiO2 Ratio 452 Oxygen Delivery Method Room Air Oxygen Flow Rate 0 Narrative Exam Narrative: NAD, alert and oriented. Fluent speech. Lungs are clear, normal rate and effort. Heart is regular, no murmur gallop or rub. Abdomen is soft, non distended. Extremities are free of edema. Objective Labs 12/17/23 05:28 12/17/23 05:28 [facility] Medical History Acute hyponatremia Intertrochanteric fracture of left hip Alcoholism Anoxic brain injury Essential hypertension Cardiomyopathy Paroxysmal atrial fibrillation Alcohol dependence Elevated liver function tests Pulmonary nodule (~07/2019) COPD (chronic obstructive pulmonary disease) Impaired vision GERD (gastroesophageal reflux disease) Hypothyroidism Eczema (2016) Chronic cough (1999) Dislocated elbow (2000) Dislocated shoulder (2001) Fractures (~1963) Cataracts, bilateral (2007) Surgical History History of repair of hiatal hernia Hx of hernia repair (1995) History of nasal surgery (1963) History of cataract removal with insertion of prosthetic lens Family History Father History of arteriosclerotic cardiovascular disease History of emphysema Mother Cancer Grandfather No problems noted. Grandmother Stroke Grandfather No problems noted. Grandmother No problems noted. Social History household members: friend(s) and none Smoking Status: Former smoker Tobacco: How many years used: 22 quit status: not considering quitting second hand exposure: No alcohol intake: former substance use type: does not use Assessment & Plan Assessment & Plan narrative: 1. Failure to thrive, active. 2. CHFrEF, present on admission and stable 3. Paroxysmal afib, present on admission and stable. 4. Hypothyroid, present on admission and stable. 5. COPD without exacerbation, present on admission and stable. 6. Cognitive impairment, present on admission and stable. - SLUMS of 21 with OT indicating mild cognitive impairment 7. Moderate Chronic Protein Calorie Malnutrition r/t decreased ability to consume sufficient energy intake as evidenced by moderate to severe muscle wasting (temporalis, interosseous, deltoid, trapezius, pectoralis major) and moderate subcutaneous fat loss (orbital and buccal fat pads), SLUMs , present on admission and active. 8. Alcohol abuse, present on admission and stable. PLAN: Continue current medications, out of bed as able. The patient is going [facility]. He requires placement.
--- NOTE | 2023-12-24 07:55 | CM.DPC ---
DCP Cont. Reviewed EMR and team rounds for updates. No changes to d/c plan at this time. Plan is assessment for placement on Tuesday by [facility].
[2023-12-24 09:22] VITALS: BP 110/66; PULSE 79
[2023-12-24] MEDS: TAMSULOSIN 0.4 MG CAPSULE PO (09:22)
[2023-12-24] MEDS: carvediloL 3.125 MG TABLET PO ×2 (09:22→20:25)
[2023-12-24] MEDS: ENOXAPARIN 40 MG/0.4 ML SYRINGE SUBCUT (09:22)
[2023-12-24 19:00] VITALS: BP 126/75; PULSE 68; RESP 17; TEMP 36.2; O2SAT 96
[2023-12-24 20:25] VITALS: PULSE 66
[2023-12-24] MEDS: SENNOSIDES 8.6 MG TABLET PO (20:25)
[2023-12-24] MEDS: DOCUSATE 100 MG CAPSULE PO (20:25)
[2023-12-24] MEDS: QUETIAPINE 25 MG TABLET 12.5 MG PO (20:26)
[2023-12-24] MEDS: TRAZODONE 50 MG TABLET 200 MG PO (20:28)
[2023-12-25] MEDS: LEVOTHYROXINE 75 MCG TABLET PO (05:41)
--- NOTE | 2023-12-25 07:13 | PM.PN.1 ---
Subjective Subjective Interval history: Doing well, no new concerns. Exam Vital Signs (past 8 hours): Fraction of Inspired Oxygen 21 SaO2/FiO2 Ratio 452 Oxygen Delivery Method Room Air Oxygen Flow Rate 0 Narrative Exam Narrative: NAD, alert and oriented. Fluent speech. Lungs are clear, normal rate and effort. Heart is regular, no murmur gallop or rub. Abdomen is soft, non distended. Extremities are free of edema. Objective Labs 12/17/23 05:28 12/17/23 05:28 [facility] Medical History Acute hyponatremia Intertrochanteric fracture of left hip Alcoholism Anoxic brain injury Essential hypertension Cardiomyopathy Paroxysmal atrial fibrillation Alcohol dependence Elevated liver function tests Pulmonary nodule (~07/2019) COPD (chronic obstructive pulmonary disease) Impaired vision GERD (gastroesophageal reflux disease) Hypothyroidism Eczema (2016) Chronic cough (1999) Dislocated elbow (2000) Dislocated shoulder (2001) Fractures (~1963) Cataracts, bilateral (2007) Surgical History History of repair of hiatal hernia Hx of hernia repair (1995) History of nasal surgery (1963) History of cataract removal with insertion of prosthetic lens Family History Father History of arteriosclerotic cardiovascular disease History of emphysema Mother Cancer Grandfather No problems noted. Grandmother Stroke Grandfather No problems noted. Grandmother No problems noted. Social History household members: friend(s) and none Smoking Status: Former smoker Tobacco: How many years used: 22 quit status: not considering quitting second hand exposure: No alcohol intake: former substance use type: does not use Assessment & Plan Assessment & Plan narrative: 1. Failure to thrive, active. 2. CHFrEF, present on admission and stable 3. Paroxysmal afib, present on admission and stable. 4. Hypothyroid, present on admission and stable. 5. COPD without exacerbation, present on admission and stable. 6. Cognitive impairment, present on admission and stable. - SLUMS of 21 with OT indicating mild cognitive impairment 7. Moderate Chronic Protein Calorie Malnutrition r/t decreased ability to consume sufficient energy intake as evidenced by moderate to severe muscle wasting (temporalis, interosseous, deltoid, trapezius, pectoralis major) and moderate subcutaneous fat loss (orbital and buccal fat pads), SLUMs , present on admission and active. 8. Alcohol abuse, present on admission and stable. PLAN: Continue current medications, out of bed as able. The patient is going to be evaluated for functional status by the [facility] on TuesdayDecember 25. He requires placement.
[2023-12-25 08:00] VITALS: O2SAT 95
[2023-12-25 10:12] VITALS: BP 102/64; PULSE 73
[2023-12-25] MEDS: ENOXAPARIN 40 MG/0.4 ML SYRINGE SUBCUT (10:12)
[2023-12-25] MEDS: carvediloL 3.125 MG TABLET PO ×2 (10:12→20:58)
[2023-12-25] MEDS: DOCUSATE 100 MG CAPSULE PO ×2 (10:12→20:59)
[2023-12-25] MEDS: TAMSULOSIN 0.4 MG CAPSULE PO (10:16)
[2023-12-25 10:34] VITALS: BP 102/64; PULSE 67; RESP 16; TEMP 36.7; O2SAT 96
[2023-12-25 20:57] VITALS: BP 111/76; PULSE 98; RESP 18; TEMP 36.3; O2SAT 98
[2023-12-25 20:58] VITALS: BP 111/76; PULSE 75
[2023-12-25 20:59] VITALS: O2SAT 98
[2023-12-25] MEDS: QUETIAPINE 25 MG TABLET 12.5 MG PO (20:59)
[2023-12-25] MEDS: SENNOSIDES 8.6 MG TABLET PO (20:59)
[2023-12-25] MEDS: TRAZODONE 50 MG TABLET 200 MG PO (20:59)
--- NOTE | 2023-12-26 07:41 | P.PN_ITS ---
Subjective Subjective Interval history: No current complaints or concerns. Exam Vital Signs (past 8 hours): Fraction of Inspired Oxygen 21 SaO2/FiO2 Ratio 452 Oxygen Delivery Method Room Air Oxygen Flow Rate 0 Narrative Exam Narrative: NAD, alert and oriented. Fluent speech. Lungs are clear, normal rate and effort. Heart is regular, no murmur gallop or rub. Abdomen is soft, non distended. Extremities are free of edema. Objective Labs 12/17/23 05:28 12/17/23 05:28 [facility] Medical History Acute hyponatremia Intertrochanteric fracture of left hip Alcoholism Anoxic brain injury Essential hypertension Cardiomyopathy Paroxysmal atrial fibrillation Alcohol dependence Elevated liver function tests Pulmonary nodule (~07/2019) COPD (chronic obstructive pulmonary disease) Impaired vision GERD (gastroesophageal reflux disease) Hypothyroidism Eczema (2016) Chronic cough (1999) Dislocated elbow (2000) Dislocated shoulder (2001) Fractures (~1963) Cataracts, bilateral (2007) Surgical History History of repair of hiatal hernia Hx of hernia repair (1995) History of nasal surgery (1963) History of cataract removal with insertion of prosthetic lens Family History Father History of arteriosclerotic cardiovascular disease History of emphysema Mother Cancer Grandfather No problems noted. Grandmother Stroke Grandfather No problems noted. Grandmother No problems noted. Social History household members: friend(s) and none Smoking Status: Former smoker Tobacco: How many years used: 22 quit status: not considering quitting second hand exposure: No alcohol intake: former substance use type: does not use Assessment & Plan Assessment & Plan narrative: 1. Failure to thrive, active. 2. CHFrEF, present on admission and stable 3. Paroxysmal afib, present on admission and stable. 4. Hypothyroid, present on admission and stable. 5. COPD without exacerbation, present on admission and stable. 6. Cognitive impairment, present on admission and stable. - SLUMS of 21 with OT indicating mild cognitive impairment 7. Moderate Chronic Protein Calorie Malnutrition r/t decreased ability to consume sufficient energy intake as evidenced by moderate to severe muscle wasting (temporalis, interosseous, deltoid, trapezius, pectoralis major) and moderate subcutaneous fat loss (orbital and buccal fat pads), SLUMs , present on admission and active. 8. Alcohol abuse, present on admission and stable. PLAN: Continue current medications, out of bed as able. The patient is going to be evaluated for functional status by the [facility] on TuesdayDecember 25. He requires placement.
--- NOTE | 2023-12-26 08:12 | CM.DPC ---
Addendum entered by ROBIN Alejandro 12/26/23 15:55: ADD: Cynthia from [facility] completed bedside assessment and asked RN multiple care needs questions and was able to ambulate with pt in the hallways and per staff pt participated well and was friendly and talkative. JIM Cynthia plans to do final review of clinicals and begin writing up her Functional assessment which can take 1-2 days and will keep in contact with SW. SW called [facility] and confirmed they have open Medicaid beds and willing to review and faxed clinicals. SW spoke to [facility] and they have open beds but reviewed and decline accepting pt at this time. BF Addendum entered by ROBIN Alejandro 12/26/23 11:26: ADD: [facility] Cynthia inquiring about Healthcare POA. SW met bedside with pt and explained role and discussed purpose of Healthcare POA. Pt participated in discussion and answered appropriately and expressed his accurate understanding of healthcare POA. SW provided POA pwk and pt decided to choose his sister as 1st POA and his brother as 2nd and signed in front of two witnesses. ZEESHAN provided original to patient and made copy that was scanned into EMR and then secure emailed to [facility] Cynthia. ZEESHAN updated RN on 1400 bedside assessment from [facility] Cynthia. BF Original Note: DCP Functional Assessment Secure emailed the requested last 7-9 days of clinicals ( prog notes, RN/OT/ST/Elevator Technician notes, med list) to pt's assigned [facility] worker Cynthia Moreno ([email or web address] and [phone]) to review prior to her bedside functional assessment with pt today 12/26/23 at 1400. ROBIN Alejandro
[2023-12-26 09:00] VITALS: BP 121/86; PULSE 69; RESP 18; TEMP 36.2; O2SAT 98
[2023-12-26] MEDS: LEVOTHYROXINE 75 MCG TABLET PO (09:40)
[2023-12-26] MEDS: ENOXAPARIN 40 MG/0.4 ML SYRINGE SUBCUT (09:40)
[2023-12-26] MEDS: carvediloL 3.125 MG TABLET PO ×2 (09:40→20:29)
[2023-12-26] MEDS: TAMSULOSIN 0.4 MG CAPSULE PO (09:40)
--- NOTE | 2023-12-26 11:09 | DIET.CONS2 ---
Dietary Inpatient Consultation Note Admission Date: 12/11/2023 08:20 Nutrition f/u Patient with continued adequate po intakes and ONS tolerance. Will continue to follow for discharge plan. Diet: 12/14/23 Breakfast Dysphagia Diet Diet Modifications: Per ST, start with this diet. She will see in Am May Advance Diet as Tolerated: No Safety Tray needed?: No Food Texture: Level 5 - Minced & Moist Liquid Consistency: Level 0 - Thin Nutrition Percent Meal Consumed 100% 12/26/23 09:00 Percent Meal Consumed 100% 12/25/23 10:33 Percent Meal Consumed 100% 12/24/23 19:00 Percent Meal Consumed 100% 12/24/23 13:07 Electronically Signed by: Erika Acuna 12/26/23 11:09 Clinical Dietitian [address] [address]
[2023-12-26 20:00] VITALS: BP 111/69; PULSE 77; RESP 17; TEMP 36.6; O2SAT 95
[2023-12-26] MEDS: QUETIAPINE 25 MG TABLET 12.5 MG PO (20:28)
[2023-12-26] MEDS: DOCUSATE 100 MG CAPSULE PO (20:28)
[2023-12-26] MEDS: SENNOSIDES 8.6 MG TABLET PO (20:31)
[2023-12-26] MEDS: TRAZODONE 50 MG TABLET 200 MG PO (22:26)
[2023-12-27] MEDS: LEVOTHYROXINE 75 MCG TABLET PO (06:32)
[2023-12-27 07:00] VITALS: O2SAT 96
[2023-12-27 09:00] VITALS: BP 112/64; PULSE 67; RESP 18; TEMP 36; O2SAT 94
[2023-12-27] MEDS: carvediloL 3.125 MG TABLET PO ×2 (09:25→21:22)
[2023-12-27] MEDS: ENOXAPARIN 40 MG/0.4 ML SYRINGE SUBCUT (09:26)
[2023-12-27] MEDS: DOCUSATE 100 MG CAPSULE PO ×2 (09:26→21:22)
[2023-12-27] MEDS: TAMSULOSIN 0.4 MG CAPSULE PO (09:26)
--- NOTE | 2023-12-27 15:12 | CM.DPC ---
LTC Planning Cont: [facility] Cynthia confirms that she is still writing up pt's Functional Assessment towards determining his daily rate and hopeful to have it completed this week. Cynthia confirms she will send the completed assessment to Care Management towards helping get pt placed at LTC facility. SW called the following Assisted Living Facilities: [facility]: [facility]: spoke to [place] and they do private pay to start and then Medicaid spenddown. [facility]: left msg [facility]: spoke to Audio Visual Manager and no openings for Medicaid currently in their Assisted Living. [facility] right now [facility]: spoke to Stephane and they reviewed and would consider accepting pending daily rate and Functional Assessment. [facility]: spoke to Eileen and she is willing to review and aware that [facility] is also reviewing. Secure emailed Eileen clinicals to review. [facility]: spoke to Janene, she is still considering and could possibly accept pending daily rate and Functional assessment. Sent updated clinicals to review. Plan: SW to follow closely with Cynthia at [facility] for finalized Functional Assessment and daily rate towards following up with Ingrid Hernandez, and [facility] to see if any can accept. Otherwise further Assisted Living and Adult Family Homes will need to be contacted for placement. ROBIN Alejandro
--- NOTE | 2023-12-27 20:23 | P.PN_ITS ---
Subjective Subjective Date Patient Seen: 12/27/23 Interval history: No new complaints Exam Vital Signs (past 8 hours): Fraction of Inspired Oxygen 21 SaO2/FiO2 Ratio 452 Oxygen Delivery Method Room Air Oxygen Flow Rate 0 Narrative Exam Narrative: gen: alert, NAD Lungs: CTA Objective Labs 12/17/23 05:28 12/17/23 05:28 [facility] Medical History Acute hyponatremia Intertrochanteric fracture of left hip Alcoholism Anoxic brain injury Essential hypertension Cardiomyopathy Paroxysmal atrial fibrillation Alcohol dependence Elevated liver function tests Pulmonary nodule (~07/2019) COPD (chronic obstructive pulmonary disease) Impaired vision GERD (gastroesophageal reflux disease) Hypothyroidism Eczema (2016) Chronic cough (1999) Dislocated elbow (2000) Dislocated shoulder (2001) Fractures (~1963) Cataracts, bilateral (2007) Surgical History History of repair of hiatal hernia Hx of hernia repair (1995) History of nasal surgery (1963) History of cataract removal with insertion of prosthetic lens Family History Father History of arteriosclerotic cardiovascular disease History of emphysema Mother Cancer Grandfather No problems noted. Grandmother Stroke Grandfather No problems noted. Grandmother No problems noted. Social History household members: friend(s) and none Smoking Status: Former smoker Tobacco: How many years used: 22 quit status: not considering quitting second hand exposure: No alcohol intake: former substance use type: does not use Assessment & Plan Assessment & Plan narrative: 1. Failure to thrive, active. 2. CHFrEF, present on admission and stable 3. Paroxysmal afib, present on admission and stable. 4. Hypothyroid, present on admission and stable. 5. COPD without exacerbation, present on admission and stable. 6. Cognitive impairment, present on admission and stable. - SLUMS of 21 with OT indicating mild cognitive impairment 7. Moderate Chronic Protein Calorie Malnutrition r/t decreased ability to consume sufficient energy intake as evidenced by moderate to severe muscle wasting (temporalis, interosseous, deltoid, trapezius, pectoralis major) and moderate subcutaneous fat loss (orbital and buccal fat pads), SLUMs , present on admission and active. 8. Alcohol abuse, present on admission and stable. PLAN: Continue current medications, out of bed as able. The patient is going to be evaluated for functional status by the [facility] on TuesdayDecember 25. He requires placement.
[2023-12-27 20:24] VITALS: BP 130/72; PULSE 75; RESP 19; TEMP 36.5; O2SAT 97
[2023-12-27 21:22] VITALS: BP 130/72; PULSE 75
[2023-12-27] MEDS: SENNOSIDES 8.6 MG TABLET PO (21:22)
[2023-12-27] MEDS: QUETIAPINE 25 MG TABLET 12.5 MG PO (21:23)
[2023-12-27 21:30] VITALS: O2SAT 97
[2023-12-28] MEDS: LEVOTHYROXINE 75 MCG TABLET PO (06:27)
[2023-12-28 07:00] VITALS: O2SAT 97
--- NOTE | 2023-12-28 07:31 | PM.PN.1 ---
Subjective Subjective Interval history: He is doing well. His brother's coming to visit today. We are currently awaiting for his daily rate from the [facility] for discharge planning. He denies any chest pain, or shortness a breath. He does have a cough. Exam Vital Signs (past 8 hours): Fraction of Inspired Oxygen 21 SaO2/FiO2 Ratio 452 Oxygen Delivery Method Room Air Oxygen Flow Rate 0 Narrative Exam Narrative: NAD, alert and oriented. Fluent speech. Lungs are clear except for some scattered rhonchi. He also has a normal respiratory rate and effort. Heart is regular, no murmur gallop or rub. Abdomen is soft, non distended. Extremities are free of edema. Objective Labs 12/17/23 05:28 12/17/23 05:28 [facility] Medical History Acute hyponatremia Intertrochanteric fracture of left hip Alcoholism Anoxic brain injury Essential hypertension Cardiomyopathy Paroxysmal atrial fibrillation Alcohol dependence Elevated liver function tests Pulmonary nodule (~07/2019) COPD (chronic obstructive pulmonary disease) Impaired vision GERD (gastroesophageal reflux disease) Hypothyroidism Eczema (2016) Chronic cough (1999) Dislocated elbow (2000) Dislocated shoulder (2001) Fractures (~1963) Cataracts, bilateral (2007) Surgical History History of repair of hiatal hernia Hx of hernia repair (1995) History of nasal surgery (1963) History of cataract removal with insertion of prosthetic lens Family History Father History of arteriosclerotic cardiovascular disease History of emphysema Mother Cancer Grandfather No problems noted. Grandmother Stroke Grandfather No problems noted. Grandmother No problems noted. Social History household members: friend(s) and none Smoking Status: Former smoker Tobacco: How many years used: 22 quit status: not considering quitting second hand exposure: No alcohol intake: former substance use type: does not use Assessment & Plan Assessment & Plan narrative: There have been no new events her medical planning in the interval since yesterday's note. We will give him an incentive spirometer for his cough. 1. Failure to thrive, active. 2. CHFrEF, present on admission and stable 3. Paroxysmal afib, present on admission and stable. 4. Hypothyroid, present on admission and stable. 5. COPD without exacerbation, present on admission and stable. 6. Cognitive impairment, present on admission and stable. - SLUMS of 21 with OT indicating mild cognitive impairment 7. Moderate Chronic Protein Calorie Malnutrition r/t decreased ability to consume sufficient energy intake as evidenced by moderate to severe muscle wasting (temporalis, interosseous, deltoid, trapezius, pectoralis major) and moderate subcutaneous fat loss (orbital and buccal fat pads), SLUMs , present on admission and active. 8. Alcohol abuse, present on admission and stable. PLAN: Continue current medications, out of bed as able. The patient is going to be evaluated for functional status by the [facility] on TuesdayDecember 25. He requires placement.
[2023-12-28] MEDS: DOCUSATE 100 MG CAPSULE PO ×2 (09:24→20:53)
[2023-12-28] MEDS: ENOXAPARIN 40 MG/0.4 ML SYRINGE SUBCUT (09:24)
[2023-12-28] MEDS: carvediloL 3.125 MG TABLET PO ×2 (09:24→20:55)
[2023-12-28] MEDS: TAMSULOSIN 0.4 MG CAPSULE PO (09:24)
--- NOTE | 2023-12-28 09:37 | CM.DPC ---
DCP Cont. Reviewed EMR and team rounds for status updates. Monitoring for [facility] completed daily rate for the functional assessment in order to move forward with placement. No further changes or updates at this time.
[2023-12-28 13:22] VITALS: RESP 18
[2023-12-28 14:18] VITALS: BP 116/71
[2023-12-28 20:21] VITALS: BP 128/73; PULSE 64; RESP 18; TEMP 36.6; O2SAT 96
[2023-12-28 20:25] VITALS: O2SAT 96
[2023-12-28] MEDS: QUETIAPINE 25 MG TABLET 12.5 MG PO (20:53)
[2023-12-28 20:55] VITALS: BP 128/73; PULSE 64
[2023-12-28] MEDS: SENNOSIDES 8.6 MG TABLET PO (20:55)
[2023-12-29] MEDS: LEVOTHYROXINE 75 MCG TABLET PO (06:09)
[2023-12-29 07:00] VITALS: BP 140/94; PULSE 74; RESP 18; TEMP 36.5; O2SAT 100; O2SAT 95
--- NOTE | 2023-12-29 08:25 | P.PN_ITS ---
Subjective Subjective Interval history: He is awaiting placement. He was evaluated on Tuesday and we are awaiting for his daily rate for ultimate placement options. He has had no acute medical complaints over the last 8 days. He is doing well today and denies any new issues. Exam Vital Signs (past 8 hours): Fraction of Inspired Oxygen 21 SaO2/FiO2 Ratio 452 Oxygen Delivery Method Room Air Oxygen Flow Rate 0 Narrative Exam Narrative: NAD, alert and oriented. Fluent speech. Lungs are clear, normal rate and effort. Heart is regular, no murmur gallop or rub. Abdomen is soft, non distended. Extremities are free of edema. Objective Labs 12/17/23 05:28 12/17/23 05:28 [facility] Medical History Acute hyponatremia Intertrochanteric fracture of left hip Alcoholism Anoxic brain injury Essential hypertension Cardiomyopathy Paroxysmal atrial fibrillation Alcohol dependence Elevated liver function tests Pulmonary nodule (~07/2019) COPD (chronic obstructive pulmonary disease) Impaired vision GERD (gastroesophageal reflux disease) Hypothyroidism Eczema (2016) Chronic cough (1999) Dislocated elbow (2000) Dislocated shoulder (2001) Fractures (~1963) Cataracts, bilateral (2007) Surgical History History of repair of hiatal hernia Hx of hernia repair (1995) History of nasal surgery (1963) History of cataract removal with insertion of prosthetic lens Family History Father History of arteriosclerotic cardiovascular disease History of emphysema Mother Cancer Grandfather No problems noted. Grandmother Stroke Grandfather No problems noted. Grandmother No problems noted. Social History household members: friend(s) and none Smoking Status: Former smoker Tobacco: How many years used: 22 quit status: not considering quitting second hand exposure: No alcohol intake: former substance use type: does not use Assessment & Plan Assessment & Plan narrative: 1. Failure to thrive, active. 2. CHFrEF, present on admission and stable 3. Paroxysmal afib, present on admission and stable. 4. Hypothyroid, present on admission and stable. 5. COPD without exacerbation, present on admission and stable. 6. Cognitive impairment, present on admission and stable. - SLUMS of 21 with OT indicating mild cognitive impairment 7. Moderate Chronic Protein Calorie Malnutrition r/t decreased ability to consume sufficient energy intake as evidenced by moderate to severe muscle wasting (temporalis, interosseous, deltoid, trapezius, pectoralis major) and moderate subcutaneous fat loss (orbital and buccal fat pads), SLUMs , present on admission and active. 8. Alcohol abuse, present on admission and stable. PLAN: Continue current medications, out of bed as able. The patient was evaluated for functional status by the [facility] on TuesdayDecember 25. He requires placement.
[2023-12-29 09:15] VITALS: BP 140/94; PULSE 74
[2023-12-29] MEDS: DOCUSATE 100 MG CAPSULE PO ×2 (09:15→21:21)
[2023-12-29] MEDS: TAMSULOSIN 0.4 MG CAPSULE PO (09:15)
[2023-12-29] MEDS: ENOXAPARIN 40 MG/0.4 ML SYRINGE SUBCUT (09:15)
[2023-12-29] MEDS: carvediloL 3.125 MG TABLET PO ×2 (09:15→21:21)
--- NOTE | 2023-12-29 10:39 | CM.DPC ---
DCP Cont. Reviewed EMR and team rounds for status updates. Cynthia, pt's [facility] case filler, emailed this INTERPRETER pt's functional assessment yesterday and wanted this INTERPRETER to give it to him so she could discuss w/him and obtain his agreement to move forward with the daily rate. Pt was unable to understand this paperwork, and became suspicious and agitated when this INTERPRETER and the LOGISTICS PROGRAM MANAGER attempted to help him understand it. Cynthia had originally said that she was willing to come here and do a bedside visit to explain the assessment in person to him (today), but when this INTERPRETER relayed to her that she would need to come here and explain in person, she said that her plans had changed, and that she would now not be coming until Tuesday, January 01. At that time she can explain the assessment and move forward with confirming a daily rate, which could potentially take yet another week before we can move forward with placement. Will continue to monitor closely.
[2023-12-29 19:00] VITALS: O2SAT 97
[2023-12-29 21:10] VITALS: BP 132/81; PULSE 61; RESP 16; TEMP 35.9; O2SAT 97
[2023-12-29] MEDS: QUETIAPINE 25 MG TABLET 12.5 MG PO (21:20)
[2023-12-29 21:21] VITALS: BP 132/81; PULSE 61
[2023-12-29] MEDS: SENNOSIDES 8.6 MG TABLET PO (21:21)
[2023-12-30] MEDS: LEVOTHYROXINE 75 MCG TABLET PO (06:15)
[2023-12-30 07:00] VITALS: BP 113/69; PULSE 75; RESP 16; TEMP 36.1; O2SAT 98
--- NOTE | 2023-12-30 08:03 | P.PN_ITS ---
Subjective Subjective Interval history: He is awaiting placement. He will be evaluated on Tuesday and we are awaiting for his daily rate for ultimate placement options. He has had no acute medical complaints. He is doing well today and denies any new issues. Exam Vital Signs (past 8 hours): Fraction of Inspired Oxygen 21 SaO2/FiO2 Ratio 452 Oxygen Delivery Method Room Air Oxygen Flow Rate 0 Narrative Exam Narrative: NAD, alert and oriented. Fluent speech. Lungs are clear, normal rate and effort. Heart is regular, no murmur gallop or rub. Abdomen is soft, non distended. Extremities are free of edema. Objective Labs 12/17/23 05:28 12/17/23 05:28 [facility] Medical History Acute hyponatremia Intertrochanteric fracture of left hip Alcoholism Anoxic brain injury Essential hypertension Cardiomyopathy Paroxysmal atrial fibrillation Alcohol dependence Elevated liver function tests Pulmonary nodule (~07/2019) COPD (chronic obstructive pulmonary disease) Impaired vision GERD (gastroesophageal reflux disease) Hypothyroidism Eczema (2016) Chronic cough (1999) Dislocated elbow (2000) Dislocated shoulder (2001) Fractures (~1963) Cataracts, bilateral (2007) Surgical History History of repair of hiatal hernia Hx of hernia repair (1995) History of nasal surgery (1963) History of cataract removal with insertion of prosthetic lens Family History Father History of arteriosclerotic cardiovascular disease History of emphysema Mother Cancer Grandfather No problems noted. Grandmother Stroke Grandfather No problems noted. Grandmother No problems noted. Social History household members: friend(s) and none Smoking Status: Former smoker Tobacco: How many years used: 22 quit status: not considering quitting second hand exposure: No alcohol intake: former substance use type: does not use Assessment & Plan Assessment & Plan narrative: 1. Failure to thrive, active. 2. CHFrEF, present on admission and stable 3. Paroxysmal afib, present on admission and stable. 4. Hypothyroid, present on admission and stable. 5. COPD without exacerbation, present on admission and stable. 6. Cognitive impairment, present on admission and stable. - SLUMS of 21 with OT indicating mild cognitive impairment 7. Moderate Chronic Protein Calorie Malnutrition r/t decreased ability to consume sufficient energy intake as evidenced by moderate to severe muscle wasting (temporalis, interosseous, deltoid, trapezius, pectoralis major) and moderate subcutaneous fat loss (orbital and buccal fat pads), SLUMs , present on admission and active. 8. Alcohol abuse, present on admission and stable. PLAN: Continue current medications, out of bed as able. The patient was evaluated for functional status by the [facility] on TuesdayDecember 25. He requires placement.
[2023-12-30] MEDS: DOCUSATE 100 MG CAPSULE PO ×2 (08:28→20:54)
[2023-12-30] MEDS: ENOXAPARIN 40 MG/0.4 ML SYRINGE SUBCUT (08:28)
[2023-12-30] MEDS: TAMSULOSIN 0.4 MG CAPSULE PO (08:28)
[2023-12-30 08:29] VITALS: BP 113/69; PULSE 75
[2023-12-30] MEDS: carvediloL 3.125 MG TABLET PO ×2 (08:29→20:55)
[2023-12-30 19:00] VITALS: BP 107/68; PULSE 68; RESP 18; TEMP 36.4; O2SAT 97
[2023-12-30 20:00] VITALS: O2SAT 97
[2023-12-30] MEDS: TRAZODONE 50 MG TABLET 200 MG PO (20:55)
[2023-12-30] MEDS: QUETIAPINE 25 MG TABLET 12.5 MG PO (20:55)
[2023-12-30] MEDS: SENNOSIDES 8.6 MG TABLET PO (20:55)
[2023-12-31] MEDS: LEVOTHYROXINE 75 MCG TABLET PO (05:43)
[2023-12-31 07:00] VITALS: O2SAT 96
--- NOTE | 2023-12-31 07:33 | P.PN_ITS ---
Subjective Subjective Interval history: He is awaiting placement. He will be evaluated on 01/01 and we are awaiting for his daily rate for ultimate placement options. He has had no acute medical complaints. Exam Vital Signs (past 8 hours): Fraction of Inspired Oxygen 21 SaO2/FiO2 Ratio 452 Oxygen Delivery Method Room Air Oxygen Flow Rate 0 Narrative Exam Narrative: NAD, alert and oriented. Fluent speech. Lungs are clear, normal rate and effort. Heart is regular, no murmur gallop or rub. Abdomen is soft, non distended. Extremities are free of edema. Objective Labs 12/17/23 05:28 12/17/23 05:28 [facility] Medical History Acute hyponatremia Intertrochanteric fracture of left hip Alcoholism Anoxic brain injury Essential hypertension Cardiomyopathy Paroxysmal atrial fibrillation Alcohol dependence Elevated liver function tests Pulmonary nodule (~07/2019) COPD (chronic obstructive pulmonary disease) Impaired vision GERD (gastroesophageal reflux disease) Hypothyroidism Eczema (2016) Chronic cough (1999) Dislocated elbow (2000) Dislocated shoulder (2001) Fractures (~1963) Cataracts, bilateral (2007) Surgical History History of repair of hiatal hernia Hx of hernia repair (1995) History of nasal surgery (1963) History of cataract removal with insertion of prosthetic lens Family History Father History of arteriosclerotic cardiovascular disease History of emphysema Mother Cancer Grandfather No problems noted. Grandmother Stroke Grandfather No problems noted. Grandmother No problems noted. Social History household members: friend(s) and none Smoking Status: Former smoker Tobacco: How many years used: 22 quit status: not considering quitting second hand exposure: No alcohol intake: former substance use type: does not use Assessment & Plan Assessment & Plan narrative: 1. Failure to thrive, active. 2. CHFrEF, present on admission and stable 3. Paroxysmal afib, present on admission and stable. 4. Hypothyroid, present on admission and stable. 5. COPD without exacerbation, present on admission and stable. 6. Cognitive impairment, present on admission and stable. - SLUMS of 21 with OT indicating mild cognitive impairment 7. Moderate Chronic Protein Calorie Malnutrition r/t decreased ability to consume sufficient energy intake as evidenced by moderate to severe muscle wasting (temporalis, interosseous, deltoid, trapezius, pectoralis major) and moderate subcutaneous fat loss (orbital and buccal fat pads), SLUMs , present on admission and active. 8. Alcohol abuse, present on admission and stable. PLAN: Continue current medications, out of bed as able. The patient was evaluated for functional status by the [facility] on TuesdayDecember 25. He requires placement.
[2023-12-31 08:00] VITALS: BP 121/69; PULSE 69; RESP 16; TEMP 36.1; O2SAT 98
[2023-12-31] MEDS: ENOXAPARIN 40 MG/0.4 ML SYRINGE SUBCUT (09:03)
[2023-12-31 09:04] VITALS: BP 121/69; PULSE 69
[2023-12-31] MEDS: carvediloL 3.125 MG TABLET PO ×2 (09:04→22:19)
[2023-12-31] MEDS: TAMSULOSIN 0.4 MG CAPSULE PO (09:04)
[2023-12-31 19:00] VITALS: BP 106/70; PULSE 65; RESP 17; TEMP 36; O2SAT 95
[2023-12-31] MEDS: SENNOSIDES 8.6 MG TABLET PO (22:18)
[2023-12-31] MEDS: DOCUSATE 100 MG CAPSULE PO (22:18)
[2023-12-31] MEDS: QUETIAPINE 25 MG TABLET 12.5 MG PO (22:18)
[2023-12-31] MEDS: TRAZODONE 50 MG TABLET 200 MG PO (22:18)
[2023-12-31 22:19] VITALS: BP 162/73; PULSE 76
[2024-01-01 07:00] VITALS: O2SAT 96
--- NOTE | 2024-01-01 07:45 | P.PN_ITS ---
Subjective Subjective Interval history: He is awaiting placement. He will be evaluated on 01/01 and we are awaiting for his daily rate for ultimate placement options. He has had no acute medical complaints. Exam Vital Signs (past 8 hours): Fraction of Inspired Oxygen 21 SaO2/FiO2 Ratio 452 Oxygen Delivery Method Room Air Oxygen Flow Rate 0 Narrative Exam Narrative: NAD, alert and oriented. Fluent speech. Lungs are clear, normal rate and effort. Heart is regular, no murmur gallop or rub. Abdomen is soft, non distended. Extremities are free of edema. Objective Labs 12/17/23 05:28 12/17/23 05:28 [facility] Medical History Acute hyponatremia Intertrochanteric fracture of left hip Alcoholism Anoxic brain injury Essential hypertension Cardiomyopathy Paroxysmal atrial fibrillation Alcohol dependence Elevated liver function tests Pulmonary nodule (~07/2019) COPD (chronic obstructive pulmonary disease) Impaired vision GERD (gastroesophageal reflux disease) Hypothyroidism Eczema (2016) Chronic cough (1999) Dislocated elbow (2000) Dislocated shoulder (2001) Fractures (~1963) Cataracts, bilateral (2007) Surgical History History of repair of hiatal hernia Hx of hernia repair (1995) History of nasal surgery (1963) History of cataract removal with insertion of prosthetic lens Family History Father History of arteriosclerotic cardiovascular disease History of emphysema Mother Cancer Grandfather No problems noted. Grandmother Stroke Grandfather No problems noted. Grandmother No problems noted. Social History household members: friend(s) and none Smoking Status: Former smoker Tobacco: How many years used: 22 quit status: not considering quitting second hand exposure: No alcohol intake: former substance use type: does not use Assessment & Plan Assessment & Plan narrative: 1. Failure to thrive, active. 2. CHFrEF, present on admission and stable 3. Paroxysmal afib, present on admission and stable. 4. Hypothyroid, present on admission and stable. 5. COPD without exacerbation, present on admission and stable. 6. Cognitive impairment, present on admission and stable. - SLUMS of 21 with OT indicating mild cognitive impairment 7. Moderate Chronic Protein Calorie Malnutrition r/t decreased ability to consume sufficient energy intake as evidenced by moderate to severe muscle wasting (temporalis, interosseous, deltoid, trapezius, pectoralis major) and moderate subcutaneous fat loss (orbital and buccal fat pads), SLUMs , present on admission and active. 8. Alcohol abuse, present on admission and stable. PLAN: Continue current medications, out of bed as able. The patient was evaluated for functional status by the [facility] on TuesdayDecember 25. He requires placement.
[2024-01-01 08:00] VITALS: BP 115/58; PULSE 98; RESP 16; TEMP 36.3; O2SAT 93
[2024-01-01] MEDS: DOCUSATE 100 MG CAPSULE PO ×2 (08:07→20:45)
[2024-01-01] MEDS: ACETAMINOPHEN 325 MG TABLET 650 MG PO (08:07)
[2024-01-01] MEDS: ENOXAPARIN 40 MG/0.4 ML SYRINGE SUBCUT (08:07)
[2024-01-01] MEDS: LEVOTHYROXINE 75 MCG TABLET PO (08:07)
[2024-01-01 08:08] VITALS: BP 108/57; PULSE 60
[2024-01-01] MEDS: TAMSULOSIN 0.4 MG CAPSULE PO (08:08)
[2024-01-01] MEDS: carvediloL 3.125 MG TABLET PO ×2 (08:08→20:42)
[2024-01-01 19:55] VITALS: BP 114/69; PULSE 59; RESP 16; TEMP 36.1; O2SAT 99
[2024-01-01 20:42] VITALS: BP 114/69; PULSE 60
[2024-01-01] MEDS: TRAZODONE 50 MG TABLET 200 MG PO (20:42)
[2024-01-01] MEDS: QUETIAPINE 25 MG TABLET 12.5 MG PO (20:44)
[2024-01-01] MEDS: SENNOSIDES 8.6 MG TABLET PO (20:45)
[2024-01-02] VITALS (7 sets, daily range): BP systolic 105–120; BP diastolic 65–67; PULSE 60–79; RESP 16–18; TEMP 36.3; O2SAT 94–98
--- NOTE | 2024-01-02 07:20 | PM.PN.1 ---
Subjective Subjective Interval history: No new complaints. Denies pain or dyspnea. Exam Vital Signs (past 8 hours): Fraction of Inspired Oxygen 21 SaO2/FiO2 Ratio 452 Oxygen Delivery Method Room Air Oxygen Flow Rate 0 Narrative Exam Narrative: NAD, alert and oriented. Fluent speech. Lungs are clear, normal rate and effort. Heart is regular, no murmur gallop or rub. Abdomen is soft, non distended. Extremities are free of edema. Objective Labs 12/17/23 05:28 12/17/23 05:28 [facility] Medical History Acute hyponatremia Intertrochanteric fracture of left hip Alcoholism Anoxic brain injury Essential hypertension Cardiomyopathy Paroxysmal atrial fibrillation Alcohol dependence Elevated liver function tests Pulmonary nodule (~07/2019) COPD (chronic obstructive pulmonary disease) Impaired vision GERD (gastroesophageal reflux disease) Hypothyroidism Eczema (2016) Chronic cough (1999) Dislocated elbow (2000) Dislocated shoulder (2001) Fractures (~1963) Cataracts, bilateral (2007) Surgical History History of repair of hiatal hernia Hx of hernia repair (1995) History of nasal surgery (1963) History of cataract removal with insertion of prosthetic lens Family History Father History of arteriosclerotic cardiovascular disease History of emphysema Mother Cancer Grandfather No problems noted. Grandmother Stroke Grandfather No problems noted. Grandmother No problems noted. Social History household members: friend(s) and none Smoking Status: Former smoker Tobacco: How many years used: 22 quit status: not considering quitting second hand exposure: No alcohol intake: former substance use type: does not use Assessment & Plan Assessment & Plan narrative: 1. Failure to thrive, active. 2. CHFrEF, present on admission and stable 3. Paroxysmal afib, present on admission and stable. 4. Hypothyroid, present on admission and stable. 5. COPD without exacerbation, present on admission and stable. 6. Cognitive impairment, present on admission and stable. - SLUMS of 21, indicating mild cognitive impairment 7. Moderate Chronic Protein Calorie Malnutrition, present on admission and active. 8. Alcohol abuse, present on admission and stable. PLAN: Continue current medications, out of bed as able. The patient was evaluated for functional status by the [facility] on TuesdayDecember 25. He requires placement.
[2024-01-02] MEDS: DOCUSATE 100 MG CAPSULE PO ×2 (08:57→20:50)
[2024-01-02] MEDS: ENOXAPARIN 40 MG/0.4 ML SYRINGE SUBCUT (08:57)
[2024-01-02] MEDS: carvediloL 3.125 MG TABLET PO ×2 (08:58→20:50)
[2024-01-02] MEDS: TAMSULOSIN 0.4 MG CAPSULE PO (08:58)
[2024-01-02] MEDS: LEVOTHYROXINE 75 MCG TABLET PO (08:59)
--- NOTE | 2024-01-02 13:04 | CM.DPC ---
Addendum entered by ROBIN Alejandro 01/02/24 15:24: ADD: SW received the [facility] Functional Assessment and daily rate from [facility] Cynthia for daily rate of $154.41 depending on location of LTC facility that can accept. ZEESHAN called David Calder[facility] and [facility] on assessment and daily rate and faxed for review and requested call back to see if they can accept. ZEESHAN secure emailed Eileen at [facility] and attached assessment and daily rate to review and requested communication if they can accept. BF Original Note: DCP [facility] Functional Assessment SW met bedside today with pt and [facility] Cynthia Sanchez and provided a copy of the draft of the Functional Assessment and Cynthia states she will read through it with the patient and get his signature and then will email the finalized Functional Assessment with Daily Rate to the CM department to continue moving forward with the LTC placement. ZEESHAN received an email from Janene at [facility] stating they do not feel pt would be a good fit and decline accepting him at this time. Stephane at [facility] has been reviewing and waiting for Daily Rate to determine if they can accept. Eileen at [facility] has been reviewing and waiting for Daily Rate to determine if they can accept. ROBIN Alejandro
[2024-01-02] MEDS: SENNOSIDES 8.6 MG TABLET PO (20:50)
[2024-01-02] MEDS: QUETIAPINE 25 MG TABLET 12.5 MG PO (20:50)
[2024-01-02] MEDS: TRAZODONE 50 MG TABLET 200 MG PO (20:55)
[2024-01-03] MEDS: LEVOTHYROXINE 75 MCG TABLET PO (05:40)
[2024-01-03 07:00] VITALS: O2SAT 96
[2024-01-03 08:00] VITALS: BP 108/61; PULSE 67; RESP 16; TEMP 36.6; O2SAT 96
[2024-01-03 11:16] VITALS: BP 125/76; PULSE 61
[2024-01-03] MEDS: DOCUSATE 100 MG CAPSULE PO ×2 (11:16→20:50)
[2024-01-03] MEDS: TAMSULOSIN 0.4 MG CAPSULE PO (11:16)
[2024-01-03] MEDS: carvediloL 3.125 MG TABLET PO ×2 (11:16→20:50)
[2024-01-03] MEDS: ENOXAPARIN 40 MG/0.4 ML SYRINGE SUBCUT (11:16)
--- NOTE | 2024-01-03 13:22 | PM.PN.1 ---
Subjective Subjective Interval history: No new complaints. Denies pain or dyspnea. Exam Vital Signs (past 8 hours): - 01/03/24 07:00 01/03/24 08:00 01/03/24 11:16 Temperature 97.8 F Pulse Rate 67 61 Respiratory Rate 16 Blood Pressure 108/61 125/76 Pulse Oximetry 96 96 Oxygen Delivery Method Room Air Oxygen Flow Rate 0 0 Fraction of Inspired Oxygen 21 SaO2/FiO2 Ratio 452 Oxygen Delivery Method Room Air Oxygen Flow Rate 0 Narrative Exam Narrative: NAD, alert and oriented. Fluent speech. Lungs are clear, normal rate and effort. Heart is regular, no murmur gallop or rub. Abdomen is soft, non distended. Extremities are free of edema. Objective Labs 12/17/23 05:28 12/17/23 05:28 [facility] Medical History Acute hyponatremia Intertrochanteric fracture of left hip Alcoholism Anoxic brain injury Essential hypertension Cardiomyopathy Paroxysmal atrial fibrillation Alcohol dependence Elevated liver function tests Pulmonary nodule (~07/2019) COPD (chronic obstructive pulmonary disease) Impaired vision GERD (gastroesophageal reflux disease) Hypothyroidism Eczema (2016) Chronic cough (1999) Dislocated elbow (2000) Dislocated shoulder (2001) Fractures (~1963) Cataracts, bilateral (2007) Surgical History History of repair of hiatal hernia Hx of hernia repair (1995) History of nasal surgery (1963) History of cataract removal with insertion of prosthetic lens Family History Father History of arteriosclerotic cardiovascular disease History of emphysema Mother Cancer Grandfather No problems noted. Grandmother Stroke Grandfather No problems noted. Grandmother No problems noted. Social History household members: friend(s) and none Smoking Status: Former smoker Tobacco: How many years used: 22 quit status: not considering quitting second hand exposure: No alcohol intake: former substance use type: does not use Assessment & Plan Assessment & Plan narrative: 1. Failure to thrive, active. 2. CHFrEF, present on admission and stable 3. Paroxysmal afib, present on admission and stable. 4. Hypothyroid, present on admission and stable. 5. COPD without exacerbation, present on admission and stable. 6. Cognitive impairment, present on admission and stable. - SLUMS of 21, indicating mild cognitive impairment 7. Moderate Chronic Protein Calorie Malnutrition, present on admission and active. 8. Alcohol abuse, present on admission and stable. PLAN: Continue current medications, out of bed as able. The [facility]December [facility]. He requires placement.
--- NOTE | 2024-01-03 16:45 | DIET.CONS2 ---
Dietary Inpatient Consultation Note Admission Date: 12/11/2023 08:20 Nutrition f/u. +5% weight gain during hospital admission (63.5 kg on 12/09/23, 66.8 kg on 01/03/24). Spoke with pt at bedside who reports continued good appetite, intake of 3 meals and Ensures daily. Encouraged continued adequate intake. Will continue to follow for d/c plan. Diet: 12/14/23 Breakfast Dysphagia Diet Diet Modifications: Per ST, start with this diet. She will see in Am May Advance Diet as Tolerated: No Safety Tray needed?: No Food Texture: Level 5 - Minced & Moist Liquid Consistency: Level 0 - Thin Nutrition Percent Meal Consumed 100% 01/02/24 15:23 Percent Meal Consumed 100% 01/02/24 09:56 Percent Meal Consumed 100% 01/01/24 18:00 Electronically Signed by: Erika Acuna 01/03/24 16:45 Clinical Dietitian [address] [id number]
[2024-01-03 20:00] VITALS: O2SAT 99
[2024-01-03 20:50] VITALS: BP 136/61; PULSE 71; RESP 16; TEMP 35.8; O2SAT 99
[2024-01-03] MEDS: QUETIAPINE 25 MG TABLET 12.5 MG PO (20:50)
[2024-01-03] MEDS: TRAZODONE 50 MG TABLET 200 MG PO (20:50)
[2024-01-03] MEDS: SENNOSIDES 8.6 MG TABLET PO (20:50)
[2024-01-04] MEDS: LEVOTHYROXINE 75 MCG TABLET PO (06:58)
[2024-01-04 08:00] VITALS: BP 127/62; PULSE 60; RESP 16; TEMP 35.7; O2SAT 94; O2SAT 98
[2024-01-04 10:01] VITALS: BP 127/62; PULSE 60
[2024-01-04] MEDS: ENOXAPARIN 40 MG/0.4 ML SYRINGE SUBCUT (10:01)
[2024-01-04] MEDS: TAMSULOSIN 0.4 MG CAPSULE PO (10:01)
[2024-01-04] MEDS: carvediloL 3.125 MG TABLET PO ×2 (10:01→20:29)
[2024-01-04] MEDS: DOCUSATE 100 MG CAPSULE PO ×2 (10:01→20:30)
--- NOTE | 2024-01-04 13:39 | P.PN_ITS ---
Subjective Subjective Interval history: No new complaints. Denies pain or dyspnea. Exam Vital Signs (past 8 hours): - 01/04/24 08:00 01/04/24 08:00 01/04/24 10:01 Temperature 96.3 F L Pulse Rate 60 60 Respiratory Rate 16 Blood Pressure 127/62 127/62 Pulse Oximetry 98 94 Oxygen Delivery Method Room Air Oxygen Flow Rate 0 0 Fraction of Inspired Oxygen 21 SaO2/FiO2 Ratio 452 Oxygen Delivery Method Room Air Oxygen Flow Rate 0 Narrative Exam Narrative: NAD, alert and oriented. Fluent speech. Lungs are clear, normal rate and effort. Heart is regular, no murmur gallop or rub. Abdomen is soft, non distended. Extremities are free of edema. Objective Labs 12/17/23 05:28 12/17/23 05:28 [facility] Medical History Acute hyponatremia Intertrochanteric fracture of left hip Alcoholism Anoxic brain injury Essential hypertension Cardiomyopathy Paroxysmal atrial fibrillation Alcohol dependence Elevated liver function tests Pulmonary nodule (~07/2019) COPD (chronic obstructive pulmonary disease) Impaired vision GERD (gastroesophageal reflux disease) Hypothyroidism Eczema (2016) Chronic cough (1999) Dislocated elbow (2000) Dislocated shoulder (2001) Fractures (~1963) Cataracts, bilateral (2007) Surgical History History of repair of hiatal hernia Hx of hernia repair (1995) History of nasal surgery (1963) History of cataract removal with insertion of prosthetic lens Family History Father History of arteriosclerotic cardiovascular disease History of emphysema Mother Cancer Grandfather No problems noted. Grandmother Stroke Grandfather No problems noted. Grandmother No problems noted. Social History household members: friend(s) and none Smoking Status: Former smoker Tobacco: How many years used: 22 quit status: not considering quitting second hand exposure: No alcohol intake: former substance use type: does not use Assessment & Plan Assessment & Plan narrative: 1. Failure to thrive, active. 2. CHFrEF, present on admission and stable 3. Paroxysmal afib, present on admission and stable. 4. Hypothyroid, present on admission and stable. 5. COPD without exacerbation, present on admission and stable. 6. Cognitive impairment, present on admission and stable. - SLUMS of 21, indicating mild cognitive impairment 7. Moderate Chronic Protein Calorie Malnutrition, present on admission and active. 8. Alcohol abuse, present on admission and stable. PLAN: Continue current medications, out of bed as able. The patient was evaluated for functional status by the [facility] on TuesdayDecember 25. He requires placement.
--- NOTE | 2024-01-04 17:11 | PC.NURSE ---
Addendum entered by Shivani Shepard R.N. 01/04/24 17:53: Pt declined to sign any paperwork with rep from [facility] without brother present. Pt's brother will be here at noon tomorrow 01/05/24 to meet with the rep from the adult [facility]. Message left for care management. Original Note: Day shift: Pt A&Ox2-3, asking for ice cream. Pt SBA w/ FWW to BR and around room. Ambulated in halls with PCT. Pt states, I don't want to be stuck in here anymore. Peggy Alejo from [facility] stopped by to discuss placement with pt, stating there is a bed for him at their [facility]. Peggy's business card in pt red folder. Phone number [phone], email [email or web address]. Pt in chair eating dinner. Call light within reach, chair alarm attached. Care ongoing, will continue to monitor.
[2024-01-04 19:00] VITALS: O2SAT 97
[2024-01-04] MEDS: QUETIAPINE 25 MG TABLET 12.5 MG PO (20:28)
[2024-01-04 20:29] VITALS: BP 111/65; PULSE 60
[2024-01-04] MEDS: SENNOSIDES 8.6 MG TABLET PO (20:29)
[2024-01-04 20:34] VITALS: BP 111/65; PULSE 60; RESP 16; TEMP 36.9; O2SAT 97
[2024-01-05] MEDS: LEVOTHYROXINE 75 MCG TABLET PO (05:36)
[2024-01-05 07:00] VITALS: O2SAT 96
[2024-01-05 08:00] VITALS: BP 133/82; PULSE 61; RESP 16; TEMP 36.3; O2SAT 96
[2024-01-05] MEDS: TAMSULOSIN 0.4 MG CAPSULE PO (08:47)
[2024-01-05 08:48] VITALS: BP 133/82; PULSE 61
[2024-01-05] MEDS: ACETAMINOPHEN 325 MG TABLET 650 MG PO (08:48)
[2024-01-05] MEDS: carvediloL 3.125 MG TABLET PO ×2 (08:48→21:05)
[2024-01-05] MEDS: DOCUSATE 100 MG CAPSULE PO ×2 (08:48→21:05)
[2024-01-05] MEDS: ENOXAPARIN 40 MG/0.4 ML SYRINGE SUBCUT (08:49)
--- NOTE | 2024-01-05 12:17 | PM.PN.1 ---
Subjective Subjective Interval history: No new complaints. Denies pain or dyspnea. Exam Vital Signs (past 8 hours): - 01/05/24 07:00 01/05/24 08:00 01/05/24 08:48 Temperature 97.4 F L Pulse Rate 61 61 Respiratory Rate 16 Blood Pressure 133/82 133/82 Pulse Oximetry 96 96 Oxygen Delivery Method Room Air Oxygen Flow Rate 0 0 Fraction of Inspired Oxygen 21 SaO2/FiO2 Ratio 452 Oxygen Delivery Method Room Air Oxygen Flow Rate 0 Narrative Exam Narrative: NAD, alert and oriented. Fluent speech. Lungs are clear, normal rate and effort. Heart is regular, no murmur gallop or rub. Abdomen is soft, non distended. Extremities are free of edema. Objective Labs 12/17/23 05:28 12/17/23 05:28 [facility]PLAC[facility] Medical History Acute hyponatremia Intertrochanteric fracture of left hip Alcoholism Anoxic brain injury Essential hypertension Cardiomyopathy Paroxysmal atrial fibrillation Alcohol dependence Elevated liver function tests Pulmonary nodule (~07/2019) COPD (chronic obstructive pulmonary disease) Impaired vision GERD (gastroesophageal reflux disease) Hypothyroidism Eczema (2016) Chronic cough (1999) Dislocated elbow (2000) Dislocated shoulder (2001) Fractures (~1963) Cataracts, bilateral (2007) Surgical History History of repair of hiatal hernia Hx of hernia repair (1995) History of nasal surgery (1963) History of cataract removal with insertion of prosthetic lens Family History Father History of arteriosclerotic cardiovascular disease History of emphysema Mother Cancer Grandfather No problems noted. Grandmother Stroke Grandfather No problems noted. Grandmother No problems noted. Social History household members: friend(s) and none Smoking Status: Former smoker Tobacco: How many years used: 22 quit status: not considering quitting second hand exposure: No alcohol intake: former substance use type: does not use Assessment & Plan Assessment & Plan narrative: 1. Failure to thrive, active. 2. CHFrEF, present on admission and stable 3. Paroxysmal afib, present on admission and stable. 4. Hypothyroid, present on admission and stable. 5. COPD without exacerbation, present on admission and stable. 6. Cognitive impairment, present on admission and stable. - SLUMS of 21, indicating mild cognitive impairment 7. Moderate Chronic Protein Calorie Malnutrition, present on admission and active. 8. Alcohol abuse, present on admission and stable. PLAN: Continue current medications, out of bed as able. The patient was evaluated for functional status by the [facility] on TuesdayDecember 25. He requires placement.
--- NOTE | 2024-01-05 13:06 | CM.DPNOTE ---
DCP Cont Meeting held in patient's room this morning between this ORE BUYER, patient, patient's brother Júnior and Peggy Alejo, activity and community engagement specialist at [facility], half-way and memory care unit P [phone] F [phone] [email or web address]. [facility] address: [address] [place] [address]. Peggy has accepted patient into their facility and can move patient in tomorrow 01.06.24. HCS worker Cynthia Moreno ([email or web address] and [phone]) provided this referral to [facility]. Patient's questions answered; patient and Bill agreeable to this plan. Júnior plans to sign admission ppk today. Patient's medical care will be transferred from his current PCP to the medical claims specialist at [facility] once admitted there. Brother Júnior cannot transport; Peggy offers to transport patient to their facility tomorrow between [phone], patient and family agreeable. Patient will need to leave the hospital with at least a few days of his prescriptions while [facility] P [phone], the pharmacy [facility] uses, fills patient's prescriptions. Which can be a lengthy process according to Peggy. Updated Dr Peres who will send patient's Rx to [facility] today; having them ready for patient's discharge tomorrow. Plan: Discharge to [facility], [address] [place] [address], tomorrow 01.06.24 via Peggy Alejo's P [phone] private auto CM team following closely to assist in coordination. EULALIA
[2024-01-05 20:00] VITALS: BP 119/73; PULSE 74; RESP 17; TEMP 36.5; O2SAT 96
[2024-01-05] MEDS: TRAZODONE 50 MG TABLET 200 MG PO (21:04)
[2024-01-05 21:05] VITALS: BP 119/73; PULSE 74
[2024-01-05] MEDS: SENNOSIDES 8.6 MG TABLET PO (21:05)
[2024-01-05] MEDS: QUETIAPINE 25 MG TABLET 12.5 MG PO (21:05)
[2024-01-06] MEDS: LEVOTHYROXINE 75 MCG TABLET PO (05:57)
[2024-01-06 07:00] VITALS: BP 118/65; PULSE 73; RESP 15; O2SAT 96
--- NOTE | 2024-01-06 07:31 | P.DS_ITS ---
History of Present Illness History of Present Illness Chief complaint: SI/RUTHIE Narrative: 67-year-old male with a history of alcohol misuse disorder with alcohol dependence anoxic brain injury hypertension cardiomyopathy paroxysmal atrial fibrillation smoker and frequent falls with acquired hypothyroidism who has been brought to the ER multiple times over concern for unsafe living conditions after home health evaluation. He did not appear to have insight into his current situation and case management was consulted in the emergency room. Infectious and metabolic workup was unremarkable in the emergency. Case management has been unable to find adequate discharge plan for him, so patient was admitted for further evaluation. He states he refused to come to the hospital but was brought in anyway. He states he usually walks with a walker, will not typically do anything outside of his apartment without help / vocational technical education teacher whom visits. He usually just sits in his apartment and watches TV. He states he is able to get up and use the restroom. He is unable to explain why his apartment was in such bad shape. He has some epigastric fullness with eating, but otherwise no current complaints. He was seen ambulating with the walker with minimal assistance. He states his last etoh use was many weeks ago. That he has not been able to drink due to being unable to dispose of the empty containers. Discharge Providers Provider Date of admission: 12/11/23 08:20 Discharge Date: 01/06/24 Primary care physician: Yasmine Gibbs RN Consults: 12/09/23 16:54 Consult to INCIDENT RESPONSE CONSULTANT - [employer] Helper Stat Comment: 12/10/23 10:26 Consult to Physical Therapy Evaluate & Treat Comment: Physician Instructions: Evaluate and Treat 12/10/23 15:47 Consult to Occupational Therapy Evaluate & Treat Comment: Physician Instructions: Evaluate and treat 12/11/23 15:44 Consult to Dietitian, Adult Routine Comment: Reason For Exam: loosing weight, decreased food intake Consult to [employer] Twister Helper Routine Comment: 12/13/23 12:44 Consult to Speech Therapy Evaluate & Treat Comment: choking episode Physician Instructions: Evaluate and treat Discharge provider: Tico Ibrahim DO Summary Hospital Course Discharge Diagnosis: 1. Failure to thrive, active. 2. CHFrEF, present on admission and stable 3. Paroxysmal afib, present on admission and stable. 4. Hypothyroid, present on admission and stable. 5. COPD without exacerbation, present on admission and stable. 6. Cognitive impairment, present on admission and stable. - SLUMS of 21, indicating mild cognitive impairment 7. Moderate Chronic Protein Calorie Malnutrition, present on admission and active. 8. Alcohol abuse, present on admission and stable. Hospital Course: Admitted due to unsafe living conditions and not caring for himself. Family unable to take him. Diagnosed with mild cognitive impairment with testing. Was in the hospital for almost a month before being placed at an adult family home in [place]. Exam Vital Signs (past 8 hours): Fraction of Inspired Oxygen 21 SaO2/FiO2 Ratio 452 Oxygen Delivery Method Room Air Oxygen Flow Rate 0 Narrative Exam Narrative: NAD, alert and oriented. Fluent speech. Lungs are clear, normal rate and effort. Heart is regular, no murmur gallop or rub. Abdomen is soft, non distended. Extremities are free of edema. Objective Labs 12/17/23 05:28 12/17/23 05:28 [facility] Medical History Acute hyponatremia Intertrochanteric fracture of left hip Alcoholism Anoxic brain injury Essential hypertension Cardiomyopathy Paroxysmal atrial fibrillation Alcohol dependence Elevated liver function tests Pulmonary nodule (~07/2019) COPD (chronic obstructive pulmonary disease) Impaired vision GERD (gastroesophageal reflux disease) Hypothyroidism Eczema (2016) Chronic cough (1999) Dislocated elbow (2000) Dislocated shoulder (2001) Fractures (~1963) Cataracts, bilateral (2007) Surgical History History of repair of hiatal hernia Hx of hernia repair (1995) History of nasal surgery (1963) History of cataract removal with insertion of prosthetic lens Family History Father History of arteriosclerotic cardiovascular disease History of emphysema Mother Cancer Grandfather No problems noted. Grandmother Stroke Grandfather No problems noted. Grandmother No problems noted. Social History household members: friend(s) and none Smoking Status: Former smoker Tobacco: How many years used: 22 quit status: not considering quitting second hand exposure: No alcohol intake: former substance use type: does not use Discharge Plan Discharge Plan Patient Disposition: Home Discharge orders & Medications Prescriptions: New acetaminophen 325 mg Tablet 650 mg PO Q6H PRN (Reason: Fever/Mild Pain (1-3)) Qty: 30 0RF docusate sodium 100 mg Capsule 100 mg PO BID Qty: 60 0RF quetiapine 25 mg Tablet 12.5 mg PO BEDTIME 30 Days Qty: 15 0RF sennosides [senna] 8.6 mg Tablet 8.6 mg PO BEDTIME 30 Days Qty: 30 0RF tamsulosin [Flomax] 0.4 mg Capsule 0.4 mg PO DAILY 30 Days Qty: 30 0RF trazodone 100 mg tablet 100 - 200 mg PO BEDTIME PRN (Reason: insomnia) 30 Days Qty: 60 0RF albuterol sulfate 90 mcg/actuation HFA aerosol inhaler 2 puff inhalation Q6H PRN (Reason: shortness of breath or wheezing) 30 Days Qty: 8.5 0RF quetiapine [Seroquel] 25 mg tablet 25 mg PO BEDTIME PRN (Reason: agitation) Qty: 30 0RF Wound care for first aid care 1 ea .Route Q15-20M PRN (Reason: first aid) Qty: 1 0RF Rx Instructions: .Route PRN Continued levothyroxine 75 mcg tablet 75 mcg PO QAM Qty: 30 0RF folic acid 1 mg Tablet 1 mg PO DAILY Qty: 30 0RF carvedilol 3.125 mg tablet 3.125 mg PO BID 30 Days Qty: 60 0RF Discontinued Breztri Aerosphere 160-9-4.8 mcg/actuation HFA aerosol inhaler 2 inh inhalation BID trazodone 100 mg tablet 100 - 200 mg PO ONCE PM PRN (Reason: Agitation) Trelegy Ellipta 200-62.5-25 mcg blister with device 1 ea inhalation DAILY losartan 50 mg tablet 50 mg PO DAILY Follow up/Referrals: Yasmine Gibbs, JUNE [Primary Care Provider] - 2 Weeks Visit Report/Discharge Packet Instructions: How to Prevent Falls, DI for Failure to Thrive Stand Alone Forms: Patient Portal/API, Stroke Signs & Symptoms Discharge Data Primary Care Provider: Yasmine Gibbs Attending Provider: Jamison Peres Admit Date/Time: 12/11/23 08:20
[2024-01-06] MEDS: DOCUSATE 100 MG CAPSULE PO (08:44)
[2024-01-06] MEDS: TAMSULOSIN 0.4 MG CAPSULE PO (08:45)
[2024-01-06] MEDS: ACETAMINOPHEN 325 MG TABLET 650 MG PO (08:45)
[2024-01-06] MEDS: ENOXAPARIN 40 MG/0.4 ML SYRINGE SUBCUT (08:46)
[2024-01-06 08:48] VITALS: BP 118/65; PULSE 73
[2024-01-06] MEDS: carvediloL 3.125 MG TABLET PO (08:48)
[2024-01-06] MEDS: QUETIAPINE 25 MG TABLET 12.5 MG PO (10:05)
--- NOTE | 2024-01-06 13:12 | CM.DPNOTE ---
DC Note Patient discharged today. Peggy from [facility], [address] [place] [address], here at 1030 to transport patient. Patient and brother aware and agreeable to plan. All prescriptions were filled yesterday by [facility] and are leaving with patient. Completed and signed med list provided to Peggy along with patient's discharge packet. Plan: Discharge to [facility]/memory care via Peggy Alejo, activity and community outreach coordinator's pov. Brother Bill aware and agreeable to plan. JW
== END 2024-01-06 10:35 | disposition home or self-care (01) ==
LOC: ED 12-10 23:18 → AC 12-11 08:21
PROVIDERS: Emergency Medicine; Internal Medicine; Admitting Provider Internal Medicine; Emergency Provider Emergency Medicine; PCP Nurse Practitioner Family; Referring Provider Emergency Medicine; Visit Provider Internal Medicine
DX: R62.7 Adult failure to thrive (principal); F10.20 Alcohol dependence, uncomplicated; R29.6 Repeated falls; I11.0 Hypertensive heart disease with heart failure; I50.20 Unspecified systolic (congestive) heart failure; I48.0 Paroxysmal atrial fibrillation; E44.0 Moderate protein-calorie malnutrition; I42.9 Cardiomyopathy, unspecified; G31.84 Mild cognitive impairment of uncertain or unknown etiology; J44.9 Chronic obstructive pulmonary disease, unspecified; E03.9 Hypothyroidism, unspecified; F17.210 Nicotine dependence, cigarettes, uncomplicated; Z87.820 Personal history of traumatic brain injury
CPT/HCPCS: 36415; 70450; 80048; 80053; 80305; 80320; 81001; 81003; 84443; 85025; 92526; 92610; 93005; 93010; 93306; 94640; 94760; 96372; 97129; 97161; 97166; 97535; 99284; G0378; J1650

== ENCOUNTER → 2024-03-19 19:16 | Outpatient (CLI) | payer MEDICARE, MEDICAID, SELFPAY ==
[2020-02-23 11:45] VITALS: PULSE 67; RESP 20; O2SAT 100
== END ==
PROVIDERS: PCP Nurse Practitioner Family; Visit Provider Physician Assistant Surgical
DX: B02.9 Zoster without complications (principal)
CPT/HCPCS: 87070; 87075; 87102; 87205; 87252

== ENCOUNTER → 2024-03-30 12:57 | Outpatient (CLI) | payer MEDICARE, MEDICAID, SELFPAY ==
[2020-02-23 11:45] VITALS: PULSE 67; RESP 20; O2SAT 100
== END ==
PROVIDERS: PCP Nurse Practitioner Family; Referring Provider Physician Assistant Surgical; Visit Provider Physician Assistant
DX: B02.9 Zoster without complications (principal)
CPT/HCPCS: 99203; 99213

== ENCOUNTER → 2024-04-27 16:43 | Outpatient (CLI) | payer MEDICARE, MEDICAID, SELFPAY ==
[2020-02-23 11:45] VITALS: PULSE 67; RESP 20; O2SAT 100
[2024-04-27 17:43] LABS: Hematocrit 42.7 % (41-53); Hemoglobin 14.7 g/dL (13.5-17.5); Mean Corpuscular HGB Conc 34.5 % (30-36); Mean Corpuscular Hemoglobin 32.1 PG (26-34); Mean Corpuscular Volume 93.1 fL (80-100); Platelet Count 191 X10^3/uL (150-400); Red Blood Cell Count 4.59 X10^6/uL (4.5-5.9); Red Cell Distribution Width 13.9 % (11.6-14.8); White Blood Cell Count 5.9 X10^3/uL (4.5-11.0)
[2024-04-27 18:08] LABS: Alanine Aminotransferase 18 IU/L (<50); Albumin 4.2 g/dL (3.5-5.0); Albumin Globulin Ratio 1.1 (1.0-2.8); Alkaline Phosphatase 79 U/L (38-126); Aspartate Aminotransferase 27 IU/L (17-59); BUN Creatinine Ratio 23.1 (6-22); Bilirubin Total 0.9 mg/dL (0.2-1.3); Blood Urea Nitrogen 15 mg/dL (9-20); Calcium 9.2 mg/dL (8.4-10.2); Carbon Dioxide 28 mmol/L (22-32); Chloride 103 mmol/L (98-107); Cholesterol 160 mg/dL (140-199); Estimated Glomerular Filt Rate > 60 mL/min (>60); Globulin 3.9 g/dL (1.7-4.1); Glucose 87 mg/dL (80-110); HDL Cholesterol 37 mg/dL (40-60); HEMOLYSIS 22 (0-50); LDL Cholesterol Calculated 100 mg/dL (<100); Potassium 4.2 mmol/L (3.4-5.1); Sodium 139 mmol/L (137-145); Total Protein 8.1 g/dL (6.3-8.2); Triglycerides 117 mg/dL (35-150)
== END ==
PROVIDERS: PCP Family Medicine; Referring Provider Family Medicine; Visit Provider Family Medicine
DX: I10 Essential (primary) hypertension (principal); I42.9 Cardiomyopathy, unspecified; J44.9 Chronic obstructive pulmonary disease, unspecified
CPT/HCPCS: 36415; 80053; 80061; 85027

== ENCOUNTER 2024-05-12 17:53 | Emergency (ER) | payer MEDICARE, MEDICAID, SELFPAY ==
[2020-02-23 11:45] VITALS: PULSE 67; RESP 20; O2SAT 100
[2024-05-12 17:58] VITALS: BP 144/81; PULSE 80; RESP 18; TEMP 36.6; O2SAT 98; BMI 21.5
--- NOTE | 2024-05-12 18:15 | ED.FALL ---
HPI - Fall General Chief Complaint: Fall Stated Complaint: GLF, No Thinners, Face wound re-opened Time Seen by Provider: 05/12/24 18:03 Source: patient Mode of arrival: Wheelchair History of Present Illness HPI Narrative: Patient is a 68-year-old male. Not on anticoagulation. Here for evaluation of injury that he sustained when he states he was leaning forward in order to get a hold of his walker when he fell. He did hit the left side of his face. Sustained an abrasion to the left side of his face. Also has abrasions to left foot. Did not lose consciousness. No neck pain. No extremity injuries. No dental injuries. No vision changes to include blurred vision or double vision. No headache. Related Data Home Medications Medication Instructions Recorded Confirmed fluticasone fur. 100 mcg-umeclid 1 ea inhalation DAILY 05/12/24 05/12/24 62.5 mcg-vilant 25 mcg inhalat.powder (Trelegy Ellipta) Previous Rx's Medication Instructions Recorded Wound care for first aid care 1 ea .Route Q15-20M PRN first aid 01/05/24 #1 ea acetaminophen 325 mg tablet 650 mg (2 x 325 mg) PO Q6H PRN 04/27/24 Fever/Mild Pain (1-3) #30 tabs carvedilol 3.125 mg tablet 3.125 mg PO BID 30 days #60 tabs 04/27/24 docusate sodium 100 mg capsule 100 mg PO BID #60 caps 04/27/24 folic acid 1 mg tablet 1 mg PO DAILY #30 tabs 04/27/24 levothyroxine 75 mcg tablet 75 mcg PO QAM #30 tabs 04/27/24 polyethylene glycol 3350 17 17 g PO DAILY #510 grams 04/27/24 gram/dose oral powder (Miralax) quetiapine 25 mg tablet (Seroquel) 25 mg PO BEDTIME PRN agitation #30 04/27/24 tabs sennosides 8.6 mg tablet (Senna 8.6 mg PO DAILY PRN constipation 04/27/24 Lax) #30 tabs tamsulosin 0.4 mg capsule 0.4 mg PO DAILY #30 caps 04/27/24 trazodone 100 mg tablet 200 mg (2 x 100 mg) PO ONCE PM PRN 04/27/24 sleep #60 tabs Allergies Allergy/AdvReac Type Severity Reaction Status Date / Time ciprofloxacin [From CIPRO] Allergy Severe SWELLING Verified 04/27/24 16:06 IN HANDS, ARMS, LEGS AND FEET pantoprazole AdvReac Intermediate n/v, Verified 04/27/24 16:06 omeprazole okay Review of Systems Review of Systems Narrative: See HPI Patient History Medical History Hearing decreased Wheezing Shortness of breath Mumps Measles Chicken pox Anxiety (~2020) COPD (chronic obstructive pulmonary disease) Acute hyponatremia Intertrochanteric fracture of left hip Alcoholism Anoxic brain injury Essential hypertension Cardiomyopathy Paroxysmal atrial fibrillation Alcohol dependence Elevated liver function tests Pulmonary nodule (~07/2019) Impaired vision GERD (gastroesophageal reflux disease) Hypothyroidism Eczema (2016) Chronic cough (1999) Dislocated elbow (2000) Dislocated shoulder (2001) Fractures (~1963) Cataracts, bilateral (2007) Surgical History (Updated 04/08/24 @ 19:57 by Carol Wang) Anesthesia Broken jaw History of repair of hiatal hernia Hx of hernia repair (1995) History of nasal surgery (1963) History of cataract removal with insertion of prosthetic lens Family History (Updated 04/08/24 @ 19:59 by Carol Wang) Father History of arteriosclerotic cardiovascular disease History of emphysema Mother Cancer Grandfather No problems noted. Grandmother Stroke Grandfather History of smoking Grandmother No problems noted. Brother No problems noted. Social History household members: friend(s) and none Smoking Status: Former smoker Tobacco: How many years used: 22 quit status: not considering quitting second hand exposure: No alcohol intake: former substance use type: does not use Smoking Status: Former smoker tobacco type: cigarettes alcohol intake frequency: 3 or more drinks per day Alcohol type: beer and hard liquor Substance Use Type: does not use Exam Initial Vital Signs Initial Vital Signs: Vital Signs Temperature 97.8 F 05/12/24 17:58 Pulse Rate 80 05/12/24 17:58 Respiratory Rate 18 05/12/24 17:58 Blood Pressure 144/81 H 05/12/24 17:58 Pulse Oximetry 98 05/12/24 17:58 Oxygen Delivery Method Room Air 05/12/24 17:58 Const General: cooperative, comfortable and No ill appearing HENMT Face and sinus: other (Abrasion to left side of face) Mouth: oral mucosae normal Teeth and gingiva: dentition normal Eyes Pupils: PERRL EOM: EOM intact bilaterally Resp Effort & Inspection: normal respiratory effort Cardio Rate: regular rate Back/Spine/Pelvis Cervical Spine: No cervical spinal tenderness Skin Other: A superficial skin tear/abrasion to the left cheek area. No active bleeding. Contusion around the left eye. Neuro General: patient alert, patient awake, patient oriented x3 and moves all extremities Extrem Other: Pelvis is stable. Full range motion of upper and lower extremities. Scores [place] CT Head Rule Age <16 years old: No Patient on blood thinners: No Seizure after injury: No Exclusion: Patient NOT Excluded, Proceed to next steps GCS < 15 at 2 hr post trauma: No Suspected open or depressed skull fracture: No Any sign of basilar skull fracture (hemotympanum, raccoon eyes, Khan's sign, CSF gigi-/rhinorrhea): No Two or more episodes of vomiting: No Age greater or equal to 65 years: Yes Retrograde amnesia to the event greater or equal to 30 min: No Dangerous Mechanism (pedestrian vs. mv, occupant ejected from mv, fall from >3 ft or > 5 stairs): No Recommendation: Consider CT. The [place] CT Rule cannot rule out need for Imaging. GCS [place] coma scale eye opening: Spontaneous Parth coma scale verbal response: Orientated [place] coma scale motor response: Obey commands Parth coma scale total score: 15 Nexus Score for C-Spine Focal Neurologic deficit present: No Midline spinal tenderness present: No Altered level of conciousness present: No Intoxication present: No Distracting Injury Present: No Nexus Criteria for C-spine: 0 Course Orders Ordered: ED Orders 05/12/24 18:16 CT head/brain wo con Stat Discontinued Medications Bacitracin (Bacitracin Oint 0.9 Gm Pckt) 1 applic TOP NOW ONE Stop: 05/12/24 20:11 Last Admin: 05/12/24 20:18 Dose: 1 applic Documented By: LUCAS Vital Signs Vital signs: Vital Signs - 8 hr 05/12/24 17:58 05/12/24 19:57 05/12/24 19:58 Temperature 97.8 F Pulse Rate 80 Respiratory Rate 18 Blood Pressure 144/81 H 159/82 H Pulse Oximetry 98 97 Oxygen Delivery Method Room Air 05/12/24 19:58 05/12/24 19:59 05/12/24 20:13 Temperature 98.1 F Pulse Rate 67 69 Respiratory Rate 16 Blood Pressure 159/82 H 160/85 H Pulse Oximetry 98 98 Oxygen Delivery Method Room Air 05/12/24 20:13 Temperature Pulse Rate Respiratory Rate 18 Blood Pressure Pulse Oximetry 97 Oxygen Delivery Method MDM - Fall Imaging Data CT scan - head: Radiologist's Impression: PROCEDURE: CT HEAD/BRAIN WO CON INDICATIONS: fall L sided facial contusion TECHNIQUE: Noncontrast 4.5 mm thick angled axial sections acquired from the foramen magnum to the vertex, with coronal and sagittal reformats. For radiation dose reduction, the following was used: automated exposure control, adjustment of mA and/or kV according to patient size. COMPARISON: [facility], CT, CT HEAD/BRAIN WO CON, 12/10/2023, 11:03. FINDINGS: Image quality: Diagnostic. CSF spaces: Basal cisterns are patent. No extra-axial fluid collections. The ventricles are symmetric in size and shape. Brain: No intracranial bleeds or masses. There is cerebral volume loss for age, with resultant ventricular and sulcal prominence. There are periventricular and deep white matter chronic small vessel ischemic changes. There is intracranial internal carotid artery atherosclerosis. Skull and face: Calvarium and visualized facial bones appear intact, without suspicious lesions. Sinuses: Visualized sinuses and mastoids are clear. IMPRESSION: No acute intracranial pathology. No significant changes from previous study. [facility] Narrative Medical decision making narrative: Patient does have a contusion to his left cheek area. No active bleeding. There has a skin tear in this area. There is no wounds that require suturing. His head CT shows no intracranial pathology. Cervical spine is cleared by nexus criteria. He has not on anticoagulation. Is ambulatory. Discussed care instructions and return precautions. He expressed understanding and agreement with plan. Discharge Plan Departure Patient Disposition: Home Clinical Impression: Contusion of face Instructions: DI for Contusion, How to Prevent Falls Activity Restrictions/Additional Instructions: Continue to take all of your medications as directed. I would recommend putting some ice over the abrasion on your left cheek. You can also put some topical antibiotic ointment over the area. Contact your primary doctor for follow-up. Prescriptions: No Action Trelegy Ellipta 100-62.5-25 mcg blister with device 1 ea inhalation DAILY acetaminophen 325 mg tablet 650 mg PO Q6H PRN (Reason: Fever/Mild Pain (1-3)) Qty: 30 11RF trazodone 100 mg tablet 200 mg PO ONCE PM PRN (Reason: sleep) Qty: 60 11RF docusate sodium 100 mg capsule 100 mg PO BID Qty: 60 11RF folic acid 1 mg tablet 1 mg PO DAILY Qty: 30 11RF levothyroxine 75 mcg tablet 75 mcg PO QAM Qty: 30 11RF quetiapine [Seroquel] 25 mg tablet 25 mg PO BEDTIME PRN (Reason: agitation) Qty: 30 11RF tamsulosin 0.4 mg capsule 0.4 mg PO DAILY Qty: 30 11RF polyethylene glycol 3350 [Miralax] 17 gram/dose powder 17 g PO DAILY Qty: 510 11RF carvedilol 3.125 mg tablet 3.125 mg PO BID 30 Days Qty: 60 0RF sennosides [Senna Lax] 8.6 mg tablet 8.6 mg PO DAILY PRN (Reason: constipation) Qty: 30 11RF Wound care for first aid care 1 ea .Route Q15-20M PRN (Reason: first aid) Qty: 1 0RF Rx Instructions: .Route PRN Referrals: Sukhjinder Diop DO [Primary Care Provider] - Stand Alone Forms: Patient Portal/API
[2024-05-12 19:57] VITALS: O2SAT 97
[2024-05-12 19:58] VITALS: BP 159/82; PULSE 67; O2SAT 98
[2024-05-12 19:59] VITALS: BP 159/82; PULSE 69; RESP 16; TEMP 36.7; O2SAT 98
[2024-05-12 20:13] VITALS: BP 160/85; RESP 18; O2SAT 97
[2024-05-12] MEDS: BACITRACIN OINT 0.9 GM PCKT 1 APPLIC TOP (20:18)
== END 2024-05-12 20:16 | disposition home or self-care (01) ==
PROVIDERS: Emergency Provider Emergency Medicine; PCP Family Medicine
DX: S00.12XA Contusion of left eyelid and periocular area, initial encounter (principal); S00.81XA Abrasion of other part of head, initial encounter; W18.30XA Fall on same level, unspecified, initial encounter
CPT/HCPCS: 70450; 99282; 99284